=== PATIENT | female | born 1995 | race Caucasian/White ===

== ENCOUNTER 2020-05-12 03:57 | Emergency (ER) | payer OTHER, SELFPAY ==
[2020-05-12 04:57] VITALS: BP 123/66; PULSE 73; RESP 16; TEMP 35.7; O2SAT 95; BMI 24.2
--- NOTE | 2020-05-12 05:11 | US_ITS ---
EXAMINATION: US VENOUS WITH DOPPLER UPPER EXTREMITY, RIGHT CLINICAL INFORMATION: erythema, swelling COMPARISON: None TECHNIQUE: Ultrasound of the upper extremity is performed using compression sonography and color and pulse Doppler flow with assessment of augmentation of flow. There is also imaging and Doppler assessment of the jugular and subclavian veins. Spectral analysis with color-flow imaging is performed. FINDINGS: Respiratory variation, normal compression, and augmented flow are noted throughout the upper extremity including the axillary, brachial, cubital, and radial and ulnar veins. There is normal flow in the internal jugular and subclavian veins. There is no visible deep or superficial thrombophlebitis. If the patient's symptoms progress, a followup ultrasound in 5 -7 days might be of value to exclude proximal propagation from a nonvisualized distal arm vein. US/US venous duplex UE RT IMPRESSION: No DVT demonstrated in the right upper extremity
--- NOTE | 2020-05-12 05:11 | US_ITS ---
EXAMINATION: ULTRASOUND OF RIGHT UPPER EXTREMITY NONVASCULAR CLINICAL INFORMATION: erythema, swelling, ?abscess COMPARISON: None TECHNIQUE: Grayscale and color Doppler sonographic images were obtained through the area of erythema and swelling in the right forearm anteriorly. FINDINGS: There is marked edema in the subcutaneous fat at the abnormal area with associated soft tissue swelling and hyperemia. 30 shadowing in this region raises the possibility of subcutaneous gas. No discrete collections are identified. No nodules or masses. US/US extremity nonvascular IMPRESSION: Marked soft tissue swelling and hyperemia in the forearm at the area of abnormality with foci of dirty shadowing suggesting subcutaneous gas. The presence of gas is suggestive of underlying infection in the absence of recent instrumentation or injury, though no discrete abscess is seen.
--- NOTE | 2020-05-12 05:14 | ED_ITS ---
HPI - General Adult General Chief complaint: General Medical Stated complaint: Arm pain/no inj Time Seen by Provider: 05/12/20 05:09 Source: patient Mode of arrival: ambulatory History of Present Illness HPI narrative: This is a 24-year-old female who is an IVDA and wishes to have her right forearm evaluated and states that she is not having any fevers, chills, shortness of breath, chest pain/palpitations but states that she is concerned because her forearm is red and swollen. Related Data Previous Rx's Medication Instructions Recorded cephalexin [Keflex] 500 mg PO Q12H 7 Days #14 cap 05/12/20 doxycycline hyclate 100 mg PO BID 7 Days #14 cap 05/12/20 Allergies Allergy/AdvReac Type Severity Reaction Status Date / Time No Known Allergies Allergy Verified 05/12/20 05:11 Review of Systems Review of Systems: Pertinent positives and negatives as stated in HPI 10 point review of systems otherwise negative. PMFSH Past Medical History Source: nursing notes reviewed Medical History Substance abuse Social History Social History Advance Directives: No Advance Directives Information Provided: No Physical Exam Vital Signs: Vital Signs: Last Vital Signs Temp 96.3 F L 05/12/20 04:57 Pulse 73 05/12/20 04:57 Resp 16 05/12/20 04:57 BP 123/66 05/12/20 04:57 Pulse Ox 95 05/12/20 04:57 Body Mass Index 24.2 VITAL SIGNS: Reviewed. GENERAL: Well developed, well nourished, in no acute distress. NOSE: Nares patent bilateral OROPHARYNX: no oral lesions noted, posterior pharynx clear NECK: Supple, no adenopathy LUNGS: Normal breath sounds. SpO2<95> CARDIOVASCULAR: Regular rate and rhythm without noted murmurs ABDOMEN: Soft, non-tender, non-distended with bowel sounds. RIGHT UPPER EXTREMITY: Neurovascularly intact distal however there is a large area erythema and induration noted with multiple overlying track vergara from IVDA but no discrete collection appreciated NEUROLOGIC: Alert and oriented x 4. Course Course Course Narrative: This is a 24-year-old female with history and clinical presentation consistent with cellulitis of the right upper extremity secondary to IVDA although she is not having any systemic symptoms. Review of ultrasound studies is negative for DVT and there is evidence of infection tracking along longitudinally without any discrete abscess identified. On review of lab work there are no acute findings. Patient was informed of all results at the bedside and is aware that she will receive initial antibiotics here in the emergency room and then should proceed to the pharmacy for remaining course. Medical Decision Making Lab Data Result diagrams: 05/12/20 06:45 05/12/20 06:45 Labs: Lab Results 05/12/20 Range/Units 06:45 WBC 7.7 (4.8-10.8) X10*3/uL RBC 4.90 (4.20-5.50) X10*6/uL Hgb 13.7 (12.0-16.0) g/dl Hct 42.3 (37-47) % MCV 86.3 (80-98) fL MCH 28.0 (27.0-33.0) pg MCHC 32.4 (31.0-35.0) g/dl RDW 13.7 (11.0-16.0) % Plt Count 266 (160-400) X10*3/uL MPV 8.7 L (9.4-12.3) fL Immature Gran % (Auto) 0.3 (0.0-0.4) % Neut % (Auto) 49.5 (45-73) % Lymph % (Auto) 33.9 (20-40) % [place] % (Auto) 7.9 (2-11) % Eos % (Auto) 7.9 H (0-4) % Baso % (Auto) 0.5 (0-2) % Lymph # (Auto) 2.6 (1.2-4.9) X10*3/uL [place] # (Auto) 0.6 (0.1-1.2) X10*3/uL Eos # (Auto) 0.6 H (0.0-0.4) X10*3/uL Baso # (Auto) 0.0 (0.0-0.2) X10*3/uL Abs Immat Gran (auto) 0.02 (0.00-0.03) X10*3/uL Absolute Neuts (auto) 3.8 (2.0-8.3) X10*3/uL Absolute Nucleated RBC 0.000 (0.0-0.012) X10*3/uL Nucleated RBC % (auto) 0.0 (0.0-0.2) /100WBC Discharge Plan Discharge Clinical Impression: Cellulitis Qualifiers: Site of cellulitis: extremity Site of cellulitis of extremity: upper extremity Laterality: right Qualified Code(s): L03.113 - Cellulitis of right upper limb Patient Disposition: Home, Self-Care Instructions: Cellulitis (ED) Additional Instructions: Take antibiotics as prescribed. Please utilize the clean needle program. Prescriptions: New cephalexin [Keflex] 500 mg capsule 500 mg PO Q12H 7 Days Qty: 14 RF: 0 doxycycline hyclate 100 mg capsule 100 mg PO BID 7 Days Qty: 14 RF: 0 Referrals: Physician,Unknown [Primary Care Provider] - 2 days
[2020-05-12 06:50] LABS: MANUAL DIFF FLAG NO
[2020-05-12 07:03] LABS: Basophils Percent Auto 0.5 % (0-2); Eosinophils Absolute Auto 0.6 X10*3/uL (0.0-0.4); Eosinophils Percent Auto 7.9 % (0-4); Hematocrit 42.3 % (37-47); Hemoglobin 13.7 g/dl (12.0-16.0); Imm Gran Abs Auto 0.02 X10*3/uL (0.00-0.03); Imm Gran Pct Auto 0.3 % (0.0-0.4); Lymphocytes Absolute Auto 2.6 X10*3/uL (1.2-4.9); Lymphocytes Percent Auto 33.9 % (20-40); Mean Corpuscular HGB Conc 32.4 g/dl (31.0-35.0); Mean Corpuscular Volume 86.3 fL (80-98); Mean Platelet Volume 8.7 fL (9.4-12.3); Monocytes Absolute Auto 0.6 X10*3/uL (0.1-1.2); Monocytes Percent Auto 7.9 % (2-11); Neutrophils Absolute Auto 3.8 X10*3/uL (2.0-8.3); Neutrophils Percent Auto 49.5 % (45-73); Platelet Count 266 X10*3/uL (160-400); Red Cell Distribution Width 13.7 % (11.0-16.0); White Blood Count 7.7 X10*3/uL (4.8-10.8)
[2020-05-12 07:23] LABS: Alanine Aminotransferase 21 U/L (0-31); Albumin Level 4.1 g/dL (3.5-5.0); Alkaline Phosphatase 62 U/L (39-117); Anion Gap 16 (12-20); Aspartate Amino Transferase 22 U/L (5-31); Bilirubin Total 0.3 mg/dL (0.0-1.0); Blood Urea Nitrogen 16 mg/dL (9-16); Carbon Dioxide 23 mmol/L (22-29); Chloride 103 mmol/L (96-108); Creatinine Clr Calc Pharmacy 92.2; Estimated Glomerular Filt Rate > 60; Glucose Random 130 mg/dL (60-115); Potassium 4.1 mmol/l (3.3-5.1); Sodium 138 mmol/L (135-145); Total Protein 7.1 g/dL (6.5-8.0)
[2020-05-12 07:41] VITALS: BP 122/64; PULSE 68; RESP 16; TEMP 36.3; O2SAT 98
== END 2020-05-12 07:45 | disposition home or self-care (01) ==
PROVIDERS: Emergency Provider Student in an Organized Health Care Education/Training Program
DX: L03.113 Cellulitis of right upper limb (principal); F19.10 Other psychoactive substance abuse, uncomplicated; M79.631 Pain in right forearm
CPT/HCPCS: 36415; 76882; 80053; 85025; 93971; 99284

== ENCOUNTER 2021-03-31 20:45 | Inpatient (IN) | payer OTHER, SELFPAY ==
--- NOTE | ~2021-03-31 | IR_ITS ---
PROCEDURE: IR INSERTION OF CENTRAL VENOUS CATHETER CLINICAL INFORMATION: No IV access. Needs left chest tube insertion. COMPARISON: None TECHNIQUE: Following explaining ultrasound fluoroscopy-guided placement of right jugular temporary dialysis catheter procedure, benefits and risk, a written consent was obtained. Patient was placed supine on ultrasound stretcher and preliminary ultrasound imaging was obtained through the right neck. An optimal site was selected and marked in the neck. The marked site was cleaned and draped in usual sterile manner. 1% lidocaine was inserted puncture site. Under sterile ultrasound guidance a single wall needle was advanced and right jugular vein was punctured. After obtaining venous return a thin guidewire was advanced and needle withdrawn. A small incision was performed at puncture site. A 5 Sudanese dilator was advanced and the tract dilated. Subsequently a 6 Sudanese triple-lumen catheter was inserted over the guidewire into the SVC and the guidewire withdrawn. The catheter was anchored to the skin with 3 0 2 nylon sutures. A single image was obtained over the puncture site. Sterile dressing applied postprocedure. Patient to our procedure extremely well. No conscious sedation was utilized. All elements of maximal sterile barrier technique followed including use of cap, mask, sterile gown, sterile gloves, a sterile full body drape and hand hygiene. Also followed skin preparation with 2% chlorhexidine for cutaneous antisepsis, and sterile ultrasound preparation with sterile gel and probe cover when applicable. FINDINGS: On preliminary ultrasound imaging there is widely patent right jugular vein. Approximately 16 cm long 6 Sudanese triple-lumen catheter was inserted with its tip in the distal SVC ready for use. IR/IR us guide venous access IMPRESSION: Successful fluoroscopy-guided right jugular triple-lumen catheter insertion without immediate complications. Patient tolerated procedure extremely well. Fluoroscopy time 0.1 minute. Images: 1. Dose area product: 31 cGy/cm2
--- NOTE | ~2021-03-31 | CT_ITS ---
EXAMINATION: CT ANGIOGRAM OF THE CHEST WITH AND WITHOUT CONTRAST (CT PULMONARY ANGIOGRAM FOR PE) CLINICAL INFORMATION: Reason for Exam abnormal vq scan elevated ddimer COMPARISON: Previous chest x-ray 03/31/[address] scan 04/01/2021 TECHNIQUE: Prior to contrast administration, noncontrast localization images were obtained. Subsequently, multidetector volumetric imaging was performed from the thoracic inlet to below the diaphragms following the administration of 65 mL Omnipaque 350 intravenous contrast. No contrast reaction reported Sagittal, coronal, and MIP oblique sagittal reformatted images were obtained on the CT workstation, uploaded to PACS, and reviewed. This CT examination was performed using dose optimization techniques as appropriate, variously including the following: *Automated exposure control *Adjustment of mA and/or kV according to patient size (this includes techniques or standardized protocols for targeted exams where dose is matched to indication/reason for exam; i.e. extremities or head) *Use of iterative reconstruction technique Total exam dose-length product 142 mGy-cm FINDINGS: QUALITY OF STUDY/CONTRAST BOLUS: Satisfactory. PULMONARY ARTERIES: Evaluation of the pulmonary arteries is significantly limited due to respiratory motion artifact and extensive adjacent airspace disease and adenopathy. No large or central pulmonary embolism is seen. Evaluation of the smaller segmental and subsegmental pulmonary arteries is significantly limited. THORACIC AORTA: No aneurysm or dissection. LUNG: There is bilateral diffuse multilobar nodules and nodular opacities. Some appear cavitary. Largest cavitary nodules measure 2.2 x 3 cm in the anterior segment of the left upper lobe axial image 23 series 7 and 3 cm in the right lower lobe axial image 30 series 7. There is a larger areas of airspace disease suggestive of pneumonia is seen in the lower lobes, left greater than right. PLEURA: There are small bilateral pleural effusions, left greater than right. The left pleural effusion appears partially loculated in the left pleural fissure. MEDIASTINUM: Normal heart size. No pericardial effusion. There is diffuse mediastinal and hilar lymphadenopathy. Largest lymph node is a right paratracheal lymph node measuring 1.3 x 2.3 cm.. No evidence of septal bowing or right heart strain. CHEST WALL/AXILLA: There is right axillary lymphadenopathy. No chest wall mass or left axillary adenopathy is seen. OSSEOUS STRUCTURES: No acute or suspicious osseous abnormality. UPPER ABDOMEN: The liver and spleen appear prominent. No reflux of contrast into the hepatic veins to suggest elevated right heart pressures. CT/CT angio chest PE protocol IMPRESSION: Very limited exam due to artifact from respiratory motion and extensive airspace disease and adenopathy. No large or central pulmonary embolism is seen. Evaluation of the segmental and subsegmental pulmonary arteries is markedly limited. Multiple bilateral pulmonary nodules, some of which appear cavitary and areas of airspace disease or consolidation in the lower lobes suggestive of pneumonia, left greater than right. Bilateral pleural effusions left greater than right. The left pleural effusion is partially loculated. Enlarged hilar and mediastinal lymph nodes. Chest CT appearance is somewhat atypical for Covid infection. Septic emboli, granulomatous or fungal infection, vasculitis, other causes of cavitary pneumonia such as Staphylococcus and Klebsiella pneumonia and neoplasm should be also considered. Prominent liver and spleen. Right axillary lymphadenopathy. VTE: neg
--- NOTE | ~2021-03-31 | XR_ITS ---
EXAMINATION: XR CHEST CLINICAL INFORMATION: Bilateral pleural effusions COMPARISON: Previous chest x-rays most recent from yesterday TECHNIQUE: Frontal view of the chest was obtained. FINDINGS: The cardiac and mediastinal contours are stable. There is bilateral airspace disease with nodular opacities and some cavitary formation. This does not appear appreciably changed from yesterday's exam. There is a left chest tube at the lateral costophrenic angle. There is a small residual left pneumothorax laterally that appears unchanged. There is no significant residual left pleural effusion. There is a moderate right pleural effusion that appears unchanged. There is no right pneumothorax. Bony structures are unremarkable. XR/XR chest 1V IMPRESSION: No change in bilateral airspace opacities and cavity formation seen throughout the lungs. Stable position of left chest tube. Tiny left lateral pneumothorax unchanged. Moderate right pleural effusion unchanged.
--- NOTE | ~2021-03-31 | IR_ITS ---
PROCEDURE: IR INSERTION OF PICC CLINICAL INFORMATION: Need for long-term IV antibiotics. COMPARISON: None TECHNIQUE: Ultrasound and fluoroscopic-guided placement of right upper extremity PICC line. All elements of maximal sterile barrier technique followed including use of cap, mask, sterile gown, sterile gloves, a sterile full body drape and hand hygiene. Also followed skin preparation with 2% chlorhexidine for cutaneous antisepsis, and sterile ultrasound preparation with sterile gel and probe cover when applicable. FINDINGS: Informed consent was obtained from the patient prior to the procedure. During this process, the procedure and potential alternatives were explained, along with the intended outcome and benefits. The risks of the procedure, as well as the risk of not doing the procedure, were discussed. The patient was given the opportunity to ask questions regarding the procedure and appeared competent to make medical decisions. A signed consent form which documents this discussion was placed in the medical record. Using sterile technique and ultrasound guidance the right basilic vein was punctured above the elbow. Guidewire was directed into the right atrium. Following fascial dilatation a 5 Ma[place] 38 cm long PICC line was placed with its tip at cavoatrial junction. The catheter aspirated and flushed freely. Fluoroscopy time: 1.1 minutes. DAP: 95 cGy centimeters squared. IR/IR cvc insert peripheral IMPRESSION: Placement of right upper extremity PICC line as described.
--- NOTE | ~2021-03-31 | CT_ITS ---
EXAMINATION: CT CHEST WITHOUT CONTRAST CLINICAL INFORMATION: Bilateral pleural effusion status post tPA x3. COMPARISON: 06/07/2020 TECHNIQUE: Multidetector volumetric CT imaging of the chest was done. Axial MIP volume rendering provided. Sagittal and coronal reformatted images were obtained. This CT examination was performed using dose optimization techniques as appropriate, variously including the following: *Automated exposure control *Adjustment of mA and/or kV according to patient size (this includes techniques or standardized protocols for targeted exams where dose is matched to indication/reason for exam; i.e. extremities or head) *Use of iterative reconstruction technique DLP: 246 mGy-cm FINDINGS: LUNGS: The central airways are patent. Increased prominence of a cavitating right upper lobe nodule measuring 2.8 cm on series 5 image 48. Numerous additional cavitating nodules are seen throughout the lungs. More confluent consolidation noted in both lower lobes with multiple areas of gas internally. There is moderate sized right pleural effusion remaining, with loculated fluid along the right mid hemithorax peripherally. There is a left basilar pigtail catheter in place with significant improvement of the prior left pleural effusion. Small amount of pleural fluid left with small pneumothorax noted. MEDIASTINUM: Normal heart size. Prominent mediastinal lymph nodes remain. No pericardial effusion. AXILLA: No lymphadenopathy. UPPER ABDOMEN: Unremarkable. OSSEOUS STRUCTURES: Unremarkable. CT/CT chest wo con IMPRESSION: 1. Significant improvement of the prior left pleural effusion. Tiny left-sided hydropneumothorax remains. Pigtail catheter in place. 2. Similar appearance of the right-sided pleural effusion with loculation along the peripheral mid hemithorax. 3. Multifocal nodular opacities throughout the lungs with cavitation, showing some increase in size from prior. This is most concerning for septic emboli. Increased bilateral lower lung consolidation which could be in part atelectasis. Fleischner guidelines were followed.
--- NOTE | ~2021-03-31 | CT_ITS ---
PROCEDURE: CT GUIDED INSERTION, PLEURAL TUNNEL CATHETER CLINICAL INFORMATION: Right-sided chronic pleural effusion COMPARISON: None TECHNIQUE: Following explaining CT fluoroscopy-guided right chest incision procedure, benefits and risk, a written consent was obtained. Patient was placed in some a left decubitus view and preliminary CT imaging was obtained. Markers were placed along the right lateral chest and repeat CT imaging was obtained. An optimal marker was selected and marked on the skin. The marked site was cleaned and draped in usual sterile manner with 2% chlorhexidine solution. 1% lidocaine was injected at the puncture site. Through a small skin incision a 5 Icelandic short Yueh catheter was advanced into the right posterior pleural effusion. After observing fluid return, stylet was withdrawn and 0.035 J-wire was introduced into the pleural space. The 5 Icelandic Yueh catheter was removed. A 8.6 Icelandic APD catheter was then introduced over the guidewire with the stiffener and inserted into the right posterior pleural space. The stiffener was loosened and the catheter advanced over the guidewire. Eventually the the stiffener and the guidewire removed and repeat CT imaging was performed. After confirming chest catheter in the pleural space. Pedicular was performed by pulling to thrive. The catheter was then anchored to this skin with 3 0 nonabsorbable nylon sutures. The catheter was anchored to the connecting cannula with a single valve mechanism. The other end of catheter was connected to water seal device which was eventually connected to the wall suction 20 cm of water. Sterile dressing applied postprocedure. Patient tolerated procedure extremely well. Conscious sedation was administered during the exam. Repeat imaging was obtained through the chest, confirmation of the catheter. This CT examination was performed using dose optimization techniques as appropriate, variously including the following: *Automated exposure control *Adjustment of mA and/or kV according to patient size (this includes techniques or standardized protocols for targeted exams where dose is matched to indication/reason for exam; i.e. extremities or head) *Use of iterative reconstruction technique DLP: 140 mGy-cm FINDINGS: On preliminary ultrasound imaging there is small to moderate amount of loculated right pleural effusion. A 8.6 Icelandic APD catheter was left in the right pleural space. The catheter was connected to -20 cm wall suction via water seal device. Approximately 200 mL of fluid was drained on the table. 60 mL of fluid was sent to lab as per referring physician's orders. CT/CT chest tube placement IMPRESSION: Successful CT guided insertion of right chest tube connected to wall suction via waterseal device. There were no immediate complications. DLP: 140 mGy/cm.
--- NOTE | ~2021-03-31 | CT_ITS ---
EXAMINATION: CT CHEST WITHOUT CONTRAST CLINICAL INFORMATION: Left pleural effusion COMPARISON: CT 04/03/2021 TECHNIQUE: Multidetector volumetric CT imaging of the chest was done. Axial MIP volume rendering provided. Sagittal and coronal reformatted images were obtained. This CT examination was performed using dose optimization techniques as appropriate, variously including the following: *Automated exposure control *Adjustment of mA and/or kV according to patient size (this includes techniques or standardized protocols for targeted exams where dose is matched to indication/reason for exam; i.e. extremities or head) *Use of iterative reconstruction technique DLP: 165 mGy-cm FINDINGS: SWITCH ADJUSTER: There is left lung volume loss and left greater than right pleural effusions. LUNGS: Innumerable nodular opacities and areas of nodular consolidation are seen, many of which have cavitation. These of increased in number since the prior study 04/06/2021. The previously seen abnormalities are roughly similar in size. There is worsened more confluent consolidation at the left lung base. Slight interval worsening of consolidation in the superior segment of the right lower lobe that accounts for the right midlung opacity seen on prior chest CT. MEDIASTINUM: Normal heart size. Anterior superior mediastinal, prevascular, subcarinal, and paratracheal lymph nodes are presumably reactive. PLEURA: Loculated left pleural effusion seen along the left lateral chest wall and extending to the left lateral and posterior lung base. This is increased in volume compared to the prior chest CT 04/03/2021. Small pleural effusion at the right lung bases also increased from the prior chest CT. AXILLA: Prominent right axillary lymph nodes may be reactive. UPPER ABDOMEN: The liver and spleen are enlarged. No adrenal mass. OSSEOUS STRUCTURES: No acute or suspicious osseous abnormality. CT/CT chest wo con IMPRESSION: Worsened bilateral pleural effusions, left greater than right. The left pleural fluid is presumably loculated as it is seen tracking along the left lateral chest wall in a nondependent position. Innumerable nodular opacities and areas of nodular consolidation are seen, many of which are cavitary. These are increased in number from the prior study 04/03/2021. The previously seen abnormalities a roughly similar in size. The overall appearance, particularly with the cavitation, is more suggestive of septic emboli or other multifocal pneumonia, rather than viral COVID pneumonitis. In addition, there is worsening confluent consolidation at the left lung base and in the superior segment of the right lower lobe consistent with worsening focal consolidative pneumonia. Fleischner guidelines were followed.
--- NOTE | ~2021-03-31 | XR_ITS ---
EXAMINATION: XR CHEST CLINICAL INFORMATION: Shortness of breath COMPARISON: None TECHNIQUE: 2 views of the chest were obtained. FINDINGS: Cardiac silhouette is normal in size. Mildly hypoinflated lungs. Extensive patchy bilateral airspace disease. Blunting of left costophrenic angle likely represents a tiny amount of pleural fluid with superimposed airspace disease. No pneumothorax. No acute osseous abnormality. XR/XR chest 2V IMPRESSION: Patchy bilateral airspace disease, most consistent with Covid pneumonia.
--- NOTE | ~2021-03-31 | XR_ITS ---
EXAMINATION: XR CHEST CLINICAL INFORMATION: Right pneumothorax. Pigtail chest tube in place. COMPARISON: Chest radiograph dated from 04/20/[address] chest dated from 04/20/2021. TECHNIQUE: AP view of the chest was obtained. FINDINGS: Right-sided IJ CVC terminates at the level of the right atrium, similar to prior. A right-sided pigtail catheter appears slightly more inferiorly located when compared to the most recent prior within the right lung base. There is redemonstration of a right sided hydropneumothorax with decreased amount of air but overall similar amount of fluid. There is also redemonstration of a small left-sided pleural effusion. Multifocal airspace opacities many of which are cavitated are overall similar to prior which are better assessed on a recent CT of the chest. Unchanged appearance of the cardiomediastinal silhouette. No acute osseous abnormalities. XR/XR chest 1V IMPRESSION: Right hydropneumothorax with decreased amount of air and stable amount of fluid. Unchanged small left pleural effusion. Multifocal airspace opacities some of which are cavitated are overall similar.
--- NOTE | ~2021-03-31 | XR_ITS ---
EXAMINATION: XR CHEST CLINICAL INFORMATION: Shortness of breath COMPARISON: 03/31/2021 TECHNIQUE: Frontal view of the chest was obtained. FINDINGS: Bilateral pulmonary opacities have increased from the 03/31/2021 comparison. Blunting of the left costophrenic angle suggests a layering, small to moderate effusion which appears increased from the comparison. No large right effusion identified. No pneumothorax. XR/XR chest 1V IMPRESSION: Worsening bilateral pulmonary opacities Small to moderate left effusion is minimally increased in size.
--- NOTE | ~2021-03-31 | XR_ITS ---
EXAMINATION: XR CHEST CLINICAL INFORMATION: Right hydropneumothorax COMPARISON: 04/18/2021 TECHNIQUE: Frontal view of the chest was obtained. FINDINGS: Pigtail catheter overlies the right base. Right internal jugular central venous catheter terminates over the right atrium, unchanged. Lung volumes are low. Small right hydropneumothorax is unchanged from prior. Patchy bilateral airspace opacities are unchanged. The cardiomediastinal silhouette is within normal limits. XR/XR chest 1V IMPRESSION: No significant change in small right hydropneumothorax. Patchy bilateral airspace opacities are unchanged.
--- NOTE | ~2021-03-31 | XR_ITS ---
EXAMINATION: XR CHEST CLINICAL INFORMATION: Follow-up pneumonia. COMPARISON: 04/21/2021 chest radiograph. TECHNIQUE: 2 views of the chest were obtained. FINDINGS: Support devices: Right-sided central venous catheter with tip overlying the right atrium. Interval removal of right chest tube. Bilateral patchy infiltrates are seen with similar distribution, but mild interval increase in the right midlung. There is a persistent small right pleural effusion. No overt pneumothorax. The heart and mediastinal structures are unremarkable. XR/XR chest 2V IMPRESSION: Bilateral patchy infiltrates demonstrating similar distribution with mild interval increase in the right midlung. Persistent small right pleural effusion. No overt pneumothorax.
--- NOTE | ~2021-03-31 | XR_ITS ---
EXAMINATION: XR CHEST CLINICAL INFORMATION: Bilateral pleural effusion. Status post left pigtail chest tube COMPARISON: 04/11/2021 TECHNIQUE: Frontal view of the chest was obtained. FINDINGS: Left-sided chest tube in place at the base. Lung volumes are low. Moderate right pleural effusion remains. Small left hydropneumothorax remains. Patchy airspace opacities of both lungs. The cardiomediastinal silhouette is unchanged. XR/XR chest 1V IMPRESSION: No significant change from prior. Small left hydropneumothorax. Moderate right pleural effusion. Bilateral airspace opacities.
--- NOTE | ~2021-03-31 | IR_ITS ---
PROCEDURE: IR INSERTION OF CENTRAL VENOUS CATHETER CLINICAL INFORMATION: No IV access. Needs left chest tube insertion. COMPARISON: None TECHNIQUE: Following explaining ultrasound fluoroscopy-guided placement of right jugular temporary dialysis catheter procedure, benefits and risk, a written consent was obtained. Patient was placed supine on ultrasound stretcher and preliminary ultrasound imaging was obtained through the right neck. An optimal site was selected and marked in the neck. The marked site was cleaned and draped in usual sterile manner. 1% lidocaine was inserted puncture site. Under sterile ultrasound guidance a single wall needle was advanced and right jugular vein was punctured. After obtaining venous return a thin guidewire was advanced and needle withdrawn. A small incision was performed at puncture site. A 5 Emirati dilator was advanced and the tract dilated. Subsequently a 6 Emirati triple-lumen catheter was inserted over the guidewire into the SVC and the guidewire withdrawn. The catheter was anchored to the skin with 3 0 2 nylon sutures. A single image was obtained over the puncture site. Sterile dressing applied postprocedure. Patient to our procedure extremely well. No conscious sedation was utilized. All elements of maximal sterile barrier technique followed including use of cap, mask, sterile gown, sterile gloves, a sterile full body drape and hand hygiene. Also followed skin preparation with 2% chlorhexidine for cutaneous antisepsis, and sterile ultrasound preparation with sterile gel and probe cover when applicable. FINDINGS: On preliminary ultrasound imaging there is widely patent right jugular vein. Approximately 16 cm long 6 Emirati triple-lumen catheter was inserted with its tip in the distal SVC ready for use. IR/IR cvc insert non tunnel IMPRESSION: Successful fluoroscopy-guided right jugular triple-lumen catheter insertion without immediate complications. Patient tolerated procedure extremely well. Fluoroscopy time 0.1 minute. Images: 1. Dose area product: 31 cGy/cm2
--- NOTE | ~2021-03-31 | XR_ITS ---
EXAMINATION: XR CHEST CLINICAL INFORMATION: Follow up chest tube and right effusion. COMPARISON: CT scan of 04/16/2021 and x-ray of 04/15/2021. TECHNIQUE: AP portable view of the chest was obtained. FINDINGS: There is a small-bore right chest tube seen about the lung base. There is a right pneumothorax present but with the appearance of trapped lung similar in size and configuration to the pleural fluid that was present previously on the partially loculated right effusion. There are again noted to see bilateral regions of interstitial airspace disease without significant change. Left-sided chest tube has been removed. Heart normal size. No evidence of pulmonary edema. Right internal jugular central venous catheter tip is seen in the mid to lower right atrium. XR/XR chest 1V IMPRESSION: Small-bore right chest tube in place with pneumothorax with the appearance of trapped lung. There remains some right base density within the pleural space suggestive of some residual fluid. No significant change in appearance of diffuse bilateral interstitial and airspace disease. Right internal jugular central venous catheter tip within the mid to inferior right atrium.
--- NOTE | ~2021-03-31 | XR_ITS ---
EXAMINATION: XR CHEST CLINICAL INFORMATION: Bilateral pleural effusions COMPARISON: 04/14/2021 TECHNIQUE: Frontal view of the chest was obtained. FINDINGS: Lung volumes are low. Small bilateral pleural effusions are similar to prior. Bilateral patchy airspace opacities are without significant change. Previous tiny left lateral pneumothorax is not well seen on this study.. The cardiomediastinal silhouette is within normal limits. Left-sided chest tube remains in place at the costophrenic angle region. XR/XR chest 1V IMPRESSION: No significant change of small bilateral pleural effusions with patchy bilateral airspace opacities.
--- NOTE | ~2021-03-31 | CT_ITS ---
PROCEDURE: CT GUIDED INSERTION, PLEURAL CATHETER CLINICAL INFORMATION: Bilateral pleural effusions, slightly greater on the left, and appear loculated. COMPARISON: None TECHNIQUE: Following explaining the CT-guided insertion of the left chest tube catheter procedure, benefits and risks, a written consent was obtained. The patient was placed supine in semi right decubitus view and preliminary CT imaging was obtained. An optimal site was selected with lead markers placed on the skin. An optimal lead marker was selected and marked on the skin. The area selected was cleaned and draped in the usual sterile manner. 1% local Xylocaine was injected at the puncture site. Through a small skin incision, a 5-Macanese Yueh catheter was advanced into the left pleural space. After observing fluid return, the stylet was withdrawn and a 0.035 J-wire was inserted into the pleural space and the Yueh catheter was removed. A 6.3-Macanese APD catheter with a stiffener was inserted over the guidewire into the left pleural space. The stiffener and the guidewire were removed and repeat imaging was performed to confirm position of the catheter in the pleural space. The catheter tip was connected to waterseal drainage catheter via a three-way stopcock. The catheter was then anchored to the skin with nonabsorbable 3-0 nylon sutures x2. Sterile dressing applied post procedure. The patient tolerated the procedure extremely well. Conscious sedation was administered during the exam and the patient was monitored by the IR nurse and the radiologist. This CT examination was performed using dose optimization techniques as appropriate, variously including the following: *Automated exposure control *Adjustment of mA and/or kV according to patient size (this includes techniques or standardized protocols for targeted exams where dose is matched to indication/reason for exam; i.e. extremities or head) *Use of iterative reconstruction technique DLP: 225 mGy-cm FINDINGS: Loculated bilateral pleural effusions seen, left greater than right. Fluoroscopy-guided insertion of a left chest tube catheter with its tip along the left lateral chest wall. Approximately 6 mL of blood-tinged fluid was collected and sent to the lab as per the referring physician's orders. CT/CT chest tube placement IMPRESSION: Successful CT fluoroscopy-guided insertion of a 6.3-Macanese left chest tube catheter with its tip along the left lateral chest wall connected to waterseal drainage and subsequently to be connected to -20 cm of wall suction. There were no immediate complications. The patient was sent to the floor in satisfactory condition same as received previously.
--- NOTE | ~2021-03-31 | XR_ITS ---
EXAMINATION: XR CHEST CLINICAL INFORMATION: Left chest tube insertion. COMPARISON: CT scans of 04/08/2021 and 04/06/2021 as well as plain film chest study of 04/06/2021. TECHNIQUE: AP portable view of the chest was obtained. FINDINGS: Since the previous study, a left-sided chest tube has been placed. There is no change in appearance of what appears to be a loculated pleural effusion extending along the chest wall. There appears to be a small amount of air present nondependently within the collection, likely iatrogenic from chest tube placement or related to trapped lung. There remains loculated right-sided pleural effusion. There are bilateral regions of disease with nodularity, with some improvement of a region of disease that was seen within the right upper lobe on chest x-ray of but with what appears to be increase in size of the partially loculated right pleural effusion. Heart normal size. No evidence of pulmonary edema. XR/XR chest 1V IMPRESSION: Left-sided chest tube in place with no significant change in left loculated pleural effusion. Small amount of air seen within the left pleural space, likely either iatrogenic from a small amount of air introduced with chest tube or related to trapped lung with some fluid being removed. Increase in size of partially loculated right pleural effusion. Diffuse bilateral regions of interstitial and airspace disease.
--- NOTE | ~2021-03-31 | NM_ITS ---
EXAMINATION: PULMONARY PERFUSION STUDY CLINICAL INFORMATION: Positive d-dimer. Hypoxia, pneumonia, MELITON, pleuritic chest pain, shortness of breath. COMPARISON: No previous lung scan is available for comparison. Radiographs of the chest dated 03/31/2021 are available for comparison. TECHNIQUE: Following the intravenous administration of 4.1 mCi Tc-99m MAA an 8-view perfusion study was performed using a dual detector gamma scintillation camera. No ventilation images were obtained. FINDINGS: Perfusion images: Segmental and subsegmental perfusion defects are present bilaterally. Severe perfusion abnormalities are present involving all of the basilar segments of the left lower lobe and a portion of the superior segment of the left lower lobe. A segmental or large subsegmental perfusion defect is present in the inferior lingular segment. There is a segmental or large subsegmental perfusion defect in the medial segment of the right middle lobe an additional large subsegmental perfusion defect is present in the lateral aspect of the superior segment of the right lower lobe. There are small additional subsegmental defects present in the lung apices bilaterally, more prominently on the right. Radiographs of the chest dated 03/31/2021 show bilateral airspace opacities most severe in the lower lobes and right middle lobe. NM/NM pul perfusion IMPRESSION: Intermediate probability of pulmonary embolism. These abnormalities may be due to pulmonary emboli or severe pneumonitis, or a combination of the two. If not contraindicated, CTA pulmonary embolism protocol would be helpful in differentiating these.
--- NOTE | ~2021-03-31 | XR_ITS ---
EXAMINATION: XR CHEST CLINICAL INFORMATION: Follow-up pleural effusion COMPARISON: 04/04/2021 TECHNIQUE: 2 views of the chest were obtained. FINDINGS: Loculated pleural effusion along the left lateral chest wall is increased in size. Worsened small to moderate right pleural effusion blunting the right costophrenic angle. New hazy opacity in the right midlung could reflect fluid trapped in the fissure or new more confluent consolidation superimposed on extensive bilateral airspace opacities. XR/XR chest 2V IMPRESSION: Worsened bilateral pleural effusions, loculated on the left. Persistent bilateral airspace disease and nodular opacities consistent with multifocal pneumonia. New right midlung opacity may represent fluid in the right major fissure or developing consolidative pneumonia.
--- NOTE | ~2021-03-31 | XR_ITS ---
EXAMINATION: XR CHEST CLINICAL INFORMATION: Right and left pleural effusions COMPARISON: 04/10/2021 TECHNIQUE: Frontal view of the chest was obtained. FINDINGS: The lungs are well expanded. Moderate right pleural effusion. Small left pleural effusion. Pigtail catheter in place. These are unchanged from prior. Patchy airspace opacities throughout both lungs. No pneumothorax. The cardiomediastinal silhouette is within normal limits. XR/XR chest 1V IMPRESSION: No significant change from prior. Small left and moderate right pleural effusions. Patchy bilateral opacities.
--- NOTE | ~2021-03-31 | US_ITS ---
EXAMINATION: US ABDOMEN LIMITED CLINICAL INFORMATION: Transaminitis. COMPARISON: None TECHNIQUE: Real-time imaging of the right upper quadrant abdominal viscera. FINDINGS: PANCREAS: Not well visualized due to bowel gas LIVER: The liver is enlarged. The right lobe measures 22 cm in length. The liver contour and echogenicity is normal. No focal hepatic lesion. There is no intrahepatic biliary duct dilatation seen. GALLBLADDER: Gallbladder is normal in size. No gallstones are seen. The gallbladder wall appears slightly thickened and edematous 0.6 cm. COMMON BILE DUCT: Normal in caliber measuring 0.3 cm in diameter. RIGHT KIDNEY: Normal. No hydronephrosis. No renal calculi or focal parenchymal lesions. The kidney measures 11.8 cm in maximum dimension. FREE FLUID: No ascites. There is a small right pleural effusion. US/US abdomen limited IMPRESSION: Enlarged liver. Thickened edematous gallbladder wall. No gallstones are seen. Differential would include gallbladder wall changes related to liver disease, cholangitis, low albumin, CHF, acalculous cholecystitis and pancreatitis. If there is clinical concern of acalculous cholecystitis, HIDA scan would be recommended. Limited visualization of the pancreas. Small right pleural effusion.
--- NOTE | ~2021-03-31 | US_ITS ---
EXAMINATION: US RETROPERITONEAL LIMITED (RENAL ONLY) CLINICAL INFORMATION: MELITON. COMPARISON: Abdominal ultrasound dated 04/01/2021. TECHNIQUE: Multiple 2-D grayscale and color Doppler ultrasound images of the kidneys were obtained. FINDINGS: RIGHT KIDNEY: 12.8 x 6.0 x 6.2 cm (SAG x AP x TRV). Diffuse increased cortical echotexture. No hydronephrosis or nephrolithiasis. Color Doppler showed no abnormal vascular flow. LEFT KIDNEY: 12.4 x 5.3 x 6.5 cm (SAG x AP x TRV). Diffuse increased cortical echotexture. No hydronephrosis or nephrolithiasis. Color Doppler showed no abnormal vascular flow. US/US renal BI IMPRESSION: Increased renal cortical echotexture bilaterally is nonspecific, but is consistent with medical renal disease. No acute abnormality.
--- NOTE | ~2021-03-31 | XR_ITS ---
EXAMINATION: XR CHEST CLINICAL INFORMATION: Right-sided hydropneumothorax. COMPARISON: 04/19/2021 chest radiograph. TECHNIQUE: Frontal view of the chest was obtained. FINDINGS: Support devices: A right basilar pigtail chest tube is again seen without significant change. Right-sided internal jugular catheter with tip terminating overlying the right atrium. There is a persistent small right hydropneumothorax with minimal interval decrease of the air component. Persistent bilateral patchy infiltrates are seen with similar distribution. The heart and mediastinal structures are unremarkable. XR/XR chest 1V IMPRESSION: 1. Persistent small right hydropneumothorax with minimal interval decrease in air component. No significant change in right chest tube. 2. Bilateral patchy infiltrates without significant change.
--- NOTE | ~2021-03-31 | XR_ITS ---
EXAMINATION: XR CHEST CLINICAL INFORMATION: Right-sided pleural effusion with pigtail catheter COMPARISON: April 17, [address] scan of April 16, 2021 TECHNIQUE: AP portable view of the chest was obtained. FINDINGS: Pigtail catheter again seen at the right lung base. Pneumothorax is unchanged in appearance with what appears to be thickened pleura and probable trapped lung. There is again noted to be bilateral regions of disease without significant change. Heart normal size. No evidence of pulmonary edema. Right internal jugular central venous catheter seen within the lower right atrium. XR/XR chest 1V IMPRESSION: No significant change compared to prior day's study.
--- NOTE | ~2021-03-31 | XR_ITS ---
EXAMINATION: XR CHEST CLINICAL INFORMATION: Follow-up bilateral pleural effusions COMPARISON: Previous chest x-ray most recent from yesterday TECHNIQUE: Frontal view of the chest was obtained. FINDINGS: The cardiac and mediastinal contours are stable. There is bilateral airspace disease and nodular opacities that appear stable. New left pigtail chest tube at the bilateral costophrenic angle. Interval decrease in left pleural effusion. Small left pneumothorax. This measures less than 1 cm at the lateral costophrenic angle. Moderate size right pleural effusion not appreciably changed. Bony structures are unremarkable. XR/XR chest 1V IMPRESSION: Interval decrease in left pleural effusion. New small left pneumothorax. Bilateral airspace disease and nodular opacities unchanged. Moderate size right pleural effusion. Findings will be communicated by the [place] work flow clinical social worker Haven Askew.
--- NOTE | ~2021-03-31 | CT_ITS ---
EXAMINATION: CT CHEST WITHOUT CONTRAST CLINICAL INFORMATION: Right hydropneumothorax. COMPARISON: CT chest dated from 04/12/2021 and 04/16/2021. TECHNIQUE: Multidetector volumetric CT imaging of the chest was done. Axial MIP volume rendering provided. Sagittal and coronal reformatted images were obtained. This CT examination was performed using dose optimization techniques as appropriate, variously including the following: *Automated exposure control *Adjustment of mA and/or kV according to patient size (this includes techniques or standardized protocols for targeted exams where dose is matched to indication/reason for exam; i.e. extremities or head) *Use of iterative reconstruction technique DLP: 158 mGy-cm FINDINGS: [employer]: Right lower lobe pigtail catheter in similar positioning to prior. Right IJ CVC with tip overlying the right atrium, also unchanged. LUNGS: There is decreased amount of right-sided pleural fluid but increased amount of right-sided pleural air when compared to CTs from 04/16/2021 and 04/12/2021. A small volume of left sided pleural fluid remains unchanged without definite associated pleural air. There is redemonstration of multifocal airspace opacities many of which demonstrate cavitation and internal air fluid levels. Overall, there has been a mixed response with some of these lesions slightly decreased in size, a few stable and others increased/new. For instance, an approximately 3.4 cm airspace opacity in the right upper lobe (3:16) seems new since 04/12/2021 and increased since 04/16/2021. An approximately 4.6 cm cavitated opacity in the right lower lobe appears decreased from approximately 5.1 cm in prior, however there is increased internal amount of air. Airspace opacities in the left lower lobe are slightly improved. MEDIASTINUM: Normal heart size. Trace amount of pericardial fluid. Mediastinal and hilar lymphadenopathy is not entirely well delineated in the absence of intravenous contrast but overall stable. Normal appearance of the thyroid gland. AXILLA: No lymphadenopathy. UPPER ABDOMEN: Unremarkable. OSSEOUS STRUCTURES: Unremarkable. CT/CT chest wo con IMPRESSION: Complex study. Increased amount of right-sided pleural air but decreased amount of right-sided pleural fluid. Unchanged small left pleural effusion. However, previously visualized associated left pleural air has resolved. Redemonstration of multifocal cavitated airspace opacities, some of which stable, others decreased and a few increased in size. Recommend continued monitoring.
[2021-03-31 20:53] VITALS: BP 100/45; PULSE 114; RESP 40; TEMP 37.3; O2SAT 87; BMI 24.2
--- NOTE | 2021-03-31 20:59 | ECG_ITS ---
Test Reason : chest pain Blood Pressure : / mmHG Vent. Rate : 108 BPM Atrial Rate : 108 BPM P-R Int : 130 ms QRS Dur : 082 ms QT Int : 332 ms P-R-T Axes : 038 060 031 degrees QTc Int : 444 ms Sinus tachycardia Otherwise normal ECG No previous ECGs available Referred By: Franca Vyas Electronically Signed By:Noel Blackwood
--- NOTE | 2021-03-31 21:01 | ED_ITS ---
HPI - General Adult General Chief complaint: Upper Respiratory Symptoms Stated complaint: cp Time Seen by Provider: 03/31/21 20:59 Source: patient and EMS Mode of arrival: EMS Limitations: no limitations History of Present Illness HPI narrative: 25-year-old female with a history of polysubstance abuse here with multiple complaints. Patient tells me for the last 2 weeks she has had cough, body aches, weakness, subjective fevers and chills, chest pain which is worsened with coughing and deep breathing. She also is complaining of some left buttocks pain with radiation down the lateral left thigh with no back pain or injury or trauma. She denies any saddle anesthesia, bowel or bladder incontinence. She tells me that she injects IV heroin and cocaine daily. Her last use was just prior to arrival. She also notes a wound to her right lower extremity. Patient tells me that she has had this wound for several months and does not feel like it is worsened. Related Data Previous Rx's Medication Instructions Recorded cephalexin 500 mg capsule (Keflex) 500 mg PO Q12H 7 Days #14 cap 05/12/20 doxycycline hyclate 100 mg capsule 100 mg PO BID 7 Days #14 cap 05/12/20 Allergies Allergy/AdvReac Type Severity Reaction Status Date / Time No Known Allergies Allergy Verified 05/12/20 05:11 Review of Systems Review of Systems: Yes all other systems are reviewed and are negative Constitutional: Constitutional: Reports no additional constitutional complaints, Reports body ache(s), Reports chills, Reports fever(s), Denies headache(s) and Reports weakness Eyes: Eyes: Reports no additional eye complaints and Denies change in vision ENT: Reports system reviewed and no additional complaints, except as documented, Denies dizziness, Denies headache(s), Denies nasal congestion, Denies nasal discharge and Denies neck pain Cardiovascular: Cardiovascular: Reports no additional cardiovascular complaints, Reports chest pain, Denies leg edema and Reports dyspnea Respiratory: Respiratory: Reports no additional respiratory complaints, Reports cough and Reports dyspnea Gastrointestinal: Gastrointestinal: Reports no additional gastrointestinal complaints, Denies abdominal pain, Denies diarrhea, Denies nausea and Denies vomiting Genitourinary: Genitourinary: Reports no additional female genitourinary complaints and Denies urinary incontinence Musculoskeletal: Musculoskeletal: Reports no additional musculoskeletal complaints, Denies back pain, Denies arthralgias, Denies joint swelling, Denies neck pain, Denies numbness and Denies tingling Integumentary/Breasts: Skin/Breast: Reports system reviewed and no additional complaints, except as docu and Denies rash Neurologic: Reports system reviewed and no additional complaints, except as documented, Denies Abnormal speech present, Denies dizziness, Denies headache(s), Denies numbness, Denies tingling and Reports weakness PMFSH Past Medical History Attestation statement: The following information was validated with the patient. Source: old records reviewed and nursing notes reviewed Medical History Substance abuse Social History Social History Advance Directives: No Patient : No Physical Exam Vital Signs: Vital Signs: Last Vital Signs Temp 98.7 F 03/31/21 22:50 Pulse 112 H 04/01/21 01:00 Resp 17 04/01/21 01:00 BP 111/49 L 04/01/21 01:00 Pulse Ox 94 04/01/21 01:00 BMI result Body Mass Index 24.2 Const: Other: Disheveled General: alert Orientation/consciousness: patient oriented x3 Limitations: no limitations HENMT: Other: tacky mucous membranes Head: Yes normal to inspection Ears: hearing grossly normal bilaterally General nose exam: Normal external nose present Face and sinus: Yes normal facial exam Mouth: Normal oral and palatal mucosa present Throat: Yes posterior oropharynx normal Eyes: General: appearance normal, both eyes and all related structures Pupils: Equal, round and reactive pupils present Neck: Neck: Yes normal visual inspection Chest: Chest palpation & inspection: normal inspection of the chest Resp: Other: coarse breath sounds throughout tachypnea with a rate of 30 Cardio: Rate: regular rate Rhythm: regular rhythm Peripheral pulses: Peripheral pulses 2+ throughout GI: Inspection: Yes normal to inspection Palpation (GI): Soft to palpation and nontender Auscultation: normal bowel sounds Back/Spine/Pelvis: Thoracic/Lumbar Spine: thoracic and lumbar spine normal to inspection Skin: General skin exam: no rashes or lesions noted Neuro: Other: diffusely weak General: patient oriented x3, moves all extremities, normal sensation to monofilament and Unable to assess gait Cranial nerves: Yes Equal, round and reactive pupils present Cognition (Neuro): normal cognition Speech: No Abnormal speech present Gait exam (Neuro): Unable to assess gait Extrem: Other: General: Yes normal to inspection, Yes no pedal edema and Yes no calf tenderness Course Course Course Narrative: [id number] female with a history of polysubstance abuse here with complaints of flu-like symptoms for about 2 weeks with some pleuritic chest pain. Patient also complaining of some left buttocks pain with radiation down the leg with no back pain, incontinence or saddle anesthesia. No reports of injury or trauma. Also complaining of a chronic wound on the right upper extremity. On arrival the patient is tachypneic with a blood pressure of 91/45. will need labs including blood cultures and lactic acid, chest x-ray, COVID screen, UA. at this time infection is suspected. Antibiotics ordered. Normal saline bolus 30 cc/kilos ordered -delay in care d/t patient have poor IV access. This was placed by US by nursing at the bedside. 2299- Patient has a chest x-ray that is consistent with multifocal pneumonia. Additional antibiotics ordered. The patient's D-dimer is 3263. consider PE with elevated D-dimer, tachypnea and pleuritic chest pain. Unfortunately the patient is unable to have a CTA of the chest due to acute kidney injury. She can have a V/Q scan during her admission. Therefore she will be treated prophylactically with subcutaneous Lovenox 1 mg/kg. Additional labs show leukocytosis, thrombocytopenia, anemia, MELITON, hyponatremia. Fluids infusing. Repeat blood pressure improved. Continues to have some tachypnea but is maintaining her saturation on 3 L of oxygen. Will give low-dose narcotic to assist with work of breathing. Patient will require admission. 0000- the case was discussed with Dr. Browne accepted the patient. He will follow the patient's D-dimer with a V/Q scan in the morning. Medical Decision Making Medical Records Medical records reviewed: Yes I reviewed the patient's medical records. Lab Data Lab results reviewed: Yes I reviewed the patient's lab results. Result diagrams: 03/31/21 21:53 04/01/21 00:41 Labs: Lab Results 03/31/21 03/31/21 03/31/21 Range/Units 21:30 21:53 21:53 WBC 11.8 H (4.8-10.8) X10*3/uL RBC 3.65 L (4.20-5.50) X10*6/uL Hgb 9.1 L (12.0-16.0) g/dl Hct 26.4 L (37.0-47.0) % MCV 72.3 L (80.0-98.0) fL MCH 24.9 L (27.0-33.0) pg MCHC 34.5 (31.0-35.0) g/dl RDW 15.2 (11.0-16.0) % Plt Count 30 L (160-400) X10*3/uL MPV TNP Immature Gran % (Auto) Cancelled Neut % (Auto) Cancelled Lymph % (Auto) Cancelled [place] % (Auto) Cancelled Eos % (Auto) Cancelled Baso % (Auto) Cancelled Lymph # (Auto) Cancelled [place] # (Auto) Cancelled Eos # (Auto) Cancelled Baso # (Auto) Cancelled Abs Immat Gran (auto) Cancelled Absolute Neuts (auto) Cancelled Absolute Nucleated RBC 0.000 (0.0-0.012) X10*3/uL Nucleated RBC % (auto) 0.0 (0.0-0.2) /100WBC Neutrophils % (Manual) 71 (45-73) % Band Neutrophils % 4 (3-5) % Lymphocytes % (Manual) 13 L (20-40) % Monocytes % (Manual) 12 H (2-11) % Abs Neuts (Manual) 8.9 H (2.0-8.3) X10*3/uL Lymphocytes # (Manual) 1.5 (1.2-4.9) X10*3/uL Monocytes # (Manual) 1.4 H (0.1-1.2) X10*3/uL Toxic Vacuolation PRESENT Platelet Estimate DECREASED (NORMAL) Plt Morphology Comment NORMAL RBC Morphology NOTED [place] Cells 2+ (3-5) /OIF Acanthocytes (Spur) 2+ (3-5) /OIF Schistocytes 1+ (0-2) /OIF PT (9.9-13.0) SEC INR (0.9-1.1) D-Dimer High Sensitivty NG/ML Sodium 123 L (135-145) mmol/L Potassium 4.8 (3.3-5.1) mmol/L Chloride 89 L (96-108) mmol/L Carbon Dioxide 17 L (22-29) mmol/L Anion Gap 22 H (12-20) BUN 83 H (9-16) mg/dL Creatinine 2.51 H (0.5-1.4) mg/dL Estim Creat Clear Calc 26.2 Estimated GFR 24 Random Glucose 92 (60-115) mg/dL Osmolality (281-305) mosm/kg Lactic Acid (0.5-2.0) mmol/L Calcium 7.8 L D (8.4-10.2) mg/dL Magnesium 2.0 (1.6-2.6) mg/dL Total Bilirubin 0.9 (0.0-1.0) mg/dL Direct Bilirubin 0.7 H (0.0-0.5) mg/dL AST 142 H (5-31) U/L ALT 65 H (0-31) U/L Alkaline Phosphatase 91 D (39-117) U/L Total Creatine Kinase 14 L (26-140) U/L Troponin I High Sens (<3.5-17.0) ng/L Total Protein 6.6 (6.5-8.0) g/dL Albumin 2.4 L D (3.5-5.0) g/dL Ethyl Alcohol mg/dL COVID-19 ([facility]) (Negative) COVID-19 Clin Com Influenza Type A (PCR) NEGATIVE (Negative) Influenza Type B (PCR) NEGATIVE (Negative) RSV RNA Qual (PCR) NEGATIVE (Negative) SARS-CoV-2 RNA (RT-PCR) NEGATIVE (Negative) 03/31/21 03/31/21 03/31/21 Range/Units 21:53 21:53 21:53 WBC (4.8-10.8) X10*3/uL RBC (4.20-5.50) X10*6/uL Hgb (12.0-16.0) g/dl Hct (37.0-47.0) % MCV (80.0-98.0) fL MCH (27.0-33.0) pg MCHC (31.0-35.0) g/dl RDW (11.0-16.0) % Plt Count (160-400) X10*3/uL MPV Immature Gran % (Auto) Neut % (Auto) Lymph % (Auto) [place] % (Auto) Eos % (Auto) Baso % (Auto) Lymph # (Auto) [place] # (Auto) Eos # (Auto) Baso # (Auto) Abs Immat Gran (auto) Absolute Neuts (auto) Absolute Nucleated RBC (0.0-0.012) X10*3/uL Nucleated RBC % (auto) (0.0-0.2) /100WBC Neutrophils % (Manual) (45-73) % Band Neutrophils % (3-5) % Lymphocytes % (Manual) (20-40) % Monocytes % (Manual) (2-11) % Abs Neuts (Manual) (2.0-8.3) X10*3/uL Lymphocytes # (Manual) (1.2-4.9) X10*3/uL Monocytes # (Manual) (0.1-1.2) X10*3/uL Toxic Vacuolation Platelet Estimate (NORMAL) Plt Morphology Comment RBC Morphology [place] Cells /OIF Acanthocytes (Spur) /OIF Schistocytes /OIF PT 18.9 H (9.9-13.0) SEC INR 1.6 H (0.9-1.1) D-Dimer High Sensitivty 3263 NG/ML Sodium (135-145) mmol/L Potassium (3.3-5.1) mmol/L Chloride (96-108) mmol/L Carbon Dioxide (22-29) mmol/L Anion Gap (12-20) BUN (9-16) mg/dL Creatinine (0.5-1.4) mg/dL Estim Creat Clear Calc Estimated GFR Random Glucose (60-115) mg/dL Osmolality (281-305) mosm/kg Lactic Acid 3.2 H* (0.5-2.0) mmol/L Calcium (8.4-10.2) mg/dL Magnesium (1.6-2.6) mg/dL Total Bilirubin (0.0-1.0) mg/dL Direct Bilirubin (0.0-0.5) mg/dL AST (5-31) U/L ALT (0-31) U/L Alkaline Phosphatase (39-117) U/L Total Creatine Kinase (26-140) U/L Troponin I High Sens < 3.5 (<3.5-17.0) ng/L Total Protein (6.5-8.0) g/dL Albumin (3.5-5.0) g/dL Ethyl Alcohol mg/dL COVID-19 ([facility]) (Negative) COVID-19 Clin Com Influenza Type A (PCR) (Negative) Influenza Type B (PCR) (Negative) RSV RNA Qual (PCR) (Negative) SARS-CoV-2 RNA (RT-PCR) (Negative) 03/31/21 03/31/21 03/31/21 Range/Units 21:53 21:53 22:21 WBC (4.8-10.8) X10*3/uL RBC (4.20-5.50) X10*6/uL Hgb (12.0-16.0) g/dl Hct (37.0-47.0) % MCV (80.0-98.0) fL MCH (27.0-33.0) pg MCHC (31.0-35.0) g/dl RDW (11.0-16.0) % Plt Count (160-400) X10*3/uL MPV Immature Gran % (Auto) Neut % (Auto) Lymph % (Auto) [place] % (Auto) Eos % (Auto) Baso % (Auto) Lymph # (Auto) [place] # (Auto) Eos # (Auto) Baso # (Auto) Abs Immat Gran (auto) Absolute Neuts (auto) Absolute Nucleated RBC (0.0-0.012) X10*3/uL Nucleated RBC % (auto) (0.0-0.2) /100WBC Neutrophils % (Manual) (45-73) % Band Neutrophils % (3-5) % Lymphocytes % (Manual) (20-40) % Monocytes % (Manual) (2-11) % Abs Neuts (Manual) (2.0-8.3) X10*3/uL Lymphocytes # (Manual) (1.2-4.9) X10*3/uL Monocytes # (Manual) (0.1-1.2) X10*3/uL Toxic Vacuolation Platelet Estimate (NORMAL) Plt Morphology Comment RBC Morphology [place] Cells /OIF Acanthocytes (Spur) /OIF Schistocytes /OIF PT (9.9-13.0) SEC INR (0.9-1.1) D-Dimer High Sensitivty NG/ML Sodium (135-145) mmol/L Potassium (3.3-5.1) mmol/L Chloride (96-108) mmol/L Carbon Dioxide (22-29) mmol/L Anion Gap (12-20) BUN (9-16) mg/dL Creatinine (0.5-1.4) mg/dL Estim Creat Clear Calc Estimated GFR Random Glucose (60-115) mg/dL Osmolality 282 (281-305) mosm/kg Lactic Acid (0.5-2.0) mmol/L Calcium (8.4-10.2) mg/dL Magnesium (1.6-2.6) mg/dL Total Bilirubin (0.0-1.0) mg/dL Direct Bilirubin (0.0-0.5) mg/dL AST (5-31) U/L ALT (0-31) U/L Alkaline Phosphatase (39-117) U/L Total Creatine Kinase (26-140) U/L Troponin I High Sens (<3.5-17.0) ng/L Total Protein (6.5-8.0) g/dL Albumin (3.5-5.0) g/dL Ethyl Alcohol < 10 mg/dL COVID-19 ([facility]) Negative (Negative) COVID-19 Clin Com See Note Influenza Type A (PCR) (Negative) Influenza Type B (PCR) (Negative) RSV RNA Qual (PCR) (Negative) SARS-CoV-2 RNA (RT-PCR) (Negative) Imaging Data Chest x-ray: Attestation: I personally reviewed and interpreted this imaging study as follows: Radiologist's impression: [address] [address] XRay Report Signed Patient: Vanda Ch MR#: [id number] : 1995 Acct:[id number] Age/Sex: 25 / F ADM Date: 03/31/21 Loc: .ED Attending Dr: Ordering Physician: Franca Vyas NP Date of Service: 03/31/21 Procedure(s): XR chest 2V Accession Number(s): [id number] cc: Franca Vyas NP~ EXAMINATION: XR CHEST CLINICAL INFORMATION: Shortness of breath COMPARISON: None TECHNIQUE: 2 views of the chest were obtained. FINDINGS: Cardiac silhouette is normal in size. Mildly hypoinflated lungs. Extensive patchy bilateral airspace disease. Blunting of left costophrenic angle likely represents a tiny amount of pleural fluid with superimposed airspace disease. No pneumothorax. No acute osseous abnormality. XR/XR chest 2V IMPRESSION: Patchy bilateral airspace disease, most consistent with Covid pneumonia. ECG Data Attestation: I personally reviewed and interpreted this ECG as follows: Interpretation: sinus tachycardia with a rate of 108, normal OR, QRS normal QT Critical Care Time Critical Care Time Critical Care Time: Yes Total Critical Care Time: 60 Attestation: management of hypoxia, hypotension with supplemental oxygen and iv fluid resuscitation admission to medicine team with shared decision making done in regards to patient's care Discharge Plan Discharge Clinical Impression: Pneumonia, Leukocytosis, Thrombocytopenia, Anemia, Acute hyponatremia, MELITON (acute kidney injury), Hypoxia Patient Disposition: Admitted As Inpatient
--- NOTE | 2021-03-31 21:07 | PC.NURSE ---
pt moved to [facility] section
[2021-03-31 21:19] VITALS: BP 91/45; PULSE 114; RESP 46; TEMP 37; O2SAT 96
[2021-03-31] MEDS: cefTRIAXone sodium 1 GM in 0.9 % Sodium Chloride 50 ML IV (22:07)
[2021-03-31] MEDS: 0.9 % Sodium Chloride 1,632.93 ML 1632.93 ML IV (22:07)
[2021-03-31 22:20] LABS: Hematocrit 26.4 % (37.0-47.0); Hemoglobin 9.1 g/dl (12.0-16.0); Mean Corpuscular HGB Conc 34.5 g/dl (31.0-35.0); Mean Corpuscular Hemoglobin 24.9 pg (27.0-33.0); Mean Corpuscular Volume 72.3 fL (80.0-98.0); Red Blood Count 3.65 X10*6/uL (4.20-5.50); Red Cell Distribution Width 15.2 % (11.0-16.0); White Blood Count 11.8 X10*3/uL (4.8-10.8)
[2021-03-31 22:21] LABS: Platelet Count 30 X10*3/uL (160-400)
--- NOTE | 2021-03-31 22:29 | PC.NURSE ---
IV inserted, PT medicated per JUN, labs and cultures obtained. PT was placed on O2 at 2L/min due to low O2 sat at 82%. PT is currently satting at 98% with supplemental O2. Awaiting lab results at this time. PT is being treated under sepsis protocols.
[2021-03-31 22:31] LABS: Ethanol < 10 mg/dL
[2021-03-31 22:37] LABS: Lactic Acid 3.2 mmol/L (0.5-2.0); Troponin-I High Sensitivity < 3.5 ng/L (<3.5-17.0)
[2021-03-31 22:44] LABS: COVID-19 Test Negative (Negative)
[2021-03-31 22:45] LABS: Alanine Aminotransferase 65 U/L (0-31); Albumin Level 2.4 g/dL (3.5-5.0); Alkaline Phosphatase 91 U/L (39-117); Anion Gap 22 (12-20); Aspartate Amino Transferase 142 U/L (5-31); Band Neutrophils Percent 4 % (3-5); Bilirubin Direct 0.7 mg/dL (0.0-0.5); Bilirubin Total 0.9 mg/dL (0.0-1.0); Blood Urea Nitrogen 83 mg/dL (9-16); Calcium 7.8 mg/dL (8.4-10.2); Carbon Dioxide 17 mmol/L (22-29); Chloride 89 mmol/L (96-108); Creatinine Clr Calc Pharmacy 26.2; Estimated Glomerular Filt Rate 24; Glucose Random 92 mg/dL (60-115); Lymphocytes Absolute Manual 1.5 X10*3/uL (1.2-4.9); Lymphocytes Percent Manual 13 % (20-40); Monocytes Absolute Manual 1.4 X10*3/uL (0.1-1.2); Monocytes Percent Manual 12 % (2-11); Neutrophils Absolute Manual 8.9 X10*3/uL (2.0-8.3); Neutrophils Percent Manual 71 % (45-73); Platelet Estimate DECREASED (NORMAL); Platelet Morphology Comment NORMAL; Potassium 4.8 mmol/L (3.3-5.1); RBC Morphology NOTED; Sodium 123 mmol/L (135-145); Total Protein 6.6 g/dL (6.5-8.0)
[2021-03-31 22:46] LABS: Acanthocytes 2+ (3-5) /OIF; Burr Cells 2+ (3-5) /OIF; Schistocytes 1+ (0-2) /OIF; Toxic Vacuolation PRESENT
[2021-03-31 22:48] LABS: INTERNATIONAL NORM RATIO 1.6 (0.9-1.1); Prothrombin Time 18.9 SEC (9.9-13.0)
[2021-03-31 22:50] VITALS: BP 104/47; PULSE 102; RESP 35; TEMP 37.1; O2SAT 97
[2021-03-31 22:50] LABS: D Dimer High Sensitivity 3263 NG/ML
[2021-03-31 22:54] LABS: Influenza A PCR NEGATIVE (Negative); Influenza B PCR NEGATIVE (Negative); Resp Syncy Virus RNA Qual PCR NEGATIVE (Negative); SARS COV2 PCR INHOUSE NEGATIVE (Negative)
[2021-03-31 23:00] LABS: Osmolality, Serum 282 mosm/kg (281-305)
[2021-03-31] MEDS: Piperacillin Sodium/Tazobactam 3.375 GM in 0.9 % Sodium Chloride 50 ML IV (23:19)
[2021-03-31 23:21] VITALS: RESP 26
[2021-03-31] MEDS: Morphine Sulfate 2 MG/ML CARTRIDGE IVPUSH (23:21)
[2021-03-31 23:31] VITALS: BP 107/41; PULSE 102; RESP 26; O2SAT 92
--- NOTE | 2021-03-31 23:56 | P.HPHOSP_ITS ---
History of Present Illness Date of Service: 03/31/21 Chief Complaint: SOB 25-year-old female with a past medical history of right forearm cellulitis /open wound; history of IV drug abuse -abuses IV heroin and IV cocaine; presented to the hospital today with a chief complaint of shortness of breath. Patient reported that over the past 1 week to 10 days she has not been feeling well; complains of subjective fevers and chills, shortness of breath which worsens on exertion; complains of pleuritic chest pain intermittent in nature nonradiating; complains of dry cough; had few episodes of diarrhea; denies any new skin rash; denies snorting IV drugs. Complains of poor intake. Denies any headaches or blurry visions. Denies any neck pain, back pain, joint pains. Denies any signs of bleeding. Review of all other systems is negative except mentioned above ER course: Per ER team patient on presentation noted to be mildly tachypneic, wheezing, complaint of pleuritic chest pain; EKG nonischemic; chest x-ray showed multifocal pneumonia /patchy opacities consistent COVID. Rapid COVID test was negative, RSV negative, influenza negative. On labs noted to have mild leukocytosis, thrombocytopenia; MELITNO, mild transaminitis. Also noted to have hyponatremia to 123. Patient received 30 cc/kg normal saline, IV vancomycin and Zosyn; Patient was hypoxic to 87% on room air-placed on supplemental oxygen; Patient's blood pressure was 91/45-which improved to 107 over 41 after IV fluids. Patient's D-dimer was elevated to 3263 - unable to do CT chest given MELITON. Given empiric Lovenox at 1 milligram/kg in the ER. Admitted for further management [facility] Medical History (Updated 04/04/21 @ 14:17 by Polo Holt MD) Bacteremia Substance abuse Social History Household Members: None Housing: Other Housing Other:: homeless but states staying with friends Do you presently have visiting nurse or other home services: No Unable to assess alcohol history related to: Unable to respond and Refusing to respond Alcohol intake: never Patient Tobacco Use Status: Current everyday Tobacco user Substance Use Type: Crack/Cocaine, Heroin, IV Drugs and Methamphetamine service: No Current occupational status: unemployed Meds Allergies Allergy/AdvReac Type Severity Reaction Status Date / Time No Known Allergies Allergy Verified 05/12/20 05:11 Active Medications: Current Medications Enoxaparin Sodium (Enoxaparin Sodium 120 Mg/0.8 Ml Syringe) 55 mg 1 mg/kg (55 mg) SUBCUT Q12H [facility] Vancomycin HCl 1,000 mg/ (Sodium Chloride) 270 mls @ 270 mls/hr IV Q12H [facility] Piperacillin Sod/Tazobactam (Sod 2.25 gm/ Sodium Chloride) 50 mls @ 100 mls/hr IV Q8H [facility] Pharmacy Consult (Consult Rx Vancomycin Dosing) 1 each MISCELLANE DAILY PRN PRN Reason: Consult order Home Medications Medication Instructions Recorded Confirmed Last Taken Type No Known Home Meds 04/01/21 04/01/21 Unknown History Physical Exam Vital Signs and Narrative: Vital Signs: Last Vital Signs Temp 98.7 F 03/31/21 22:50 Pulse 102 H 03/31/21 23:31 Resp 26 H 03/31/21 23:31 BP 107/41 L 03/31/21 23:31 Pulse Ox 92 03/31/21 23:31 BMI result Body Mass Index 24.2 Gen: Appears be in no acute distress. noted to be anxious. On supplemental oxygen. Saturating 90-93% on 3 L of oxygen. Not in respiratory distress. Mildly tachypneic. HEENT: NCAT, Moist mucosa. Pulmonary: coarse breath sounds, fair air entry CVS: Normal S1-S2 Abdomen: BS+, Soft, Nontender Extremities: Warm well perfused; Right forearm lesion as noted in the picture below has been chronic since April per patient and unchanged Neuro: Alert and awake. Results Labs CBC and Chem 7: 04/13/21 04:38 04/12/21 05:36 Labs: Laboratory Results - last 24 hr 03/31/21 03/31/21 03/31/21 21:30 21:53 21:53 MCV 72.3 L MCH 24.9 L MCHC 34.5 RDW 15.2 Plt Count 30 L MPV TNP Immature Gran % (Auto) Cancelled Neut % (Auto) Cancelled Lymph % (Auto) Cancelled [place] % (Auto) Cancelled Eos % (Auto) Cancelled Baso % (Auto) Cancelled Lymph # (Auto) Cancelled [place] # (Auto) Cancelled Eos # (Auto) Cancelled Baso # (Auto) Cancelled Abs Immat Gran (auto) Cancelled Absolute Neuts (auto) Cancelled Absolute Nucleated RBC 0.000 Nucleated RBC % (auto) 0.0 Neutrophils % (Manual) 71 Band Neutrophils % 4 Lymphocytes % (Manual) 13 L Monocytes % (Manual) 12 H Abs Neuts (Manual) 8.9 H Lymphocytes # (Manual) 1.5 Monocytes # (Manual) 1.4 H Toxic Vacuolation PRESENT Platelet Estimate DECREASED Plt Morphology Comment NORMAL RBC Morphology NOTED [place] Cells 2+ (3-5) Acanthocytes (Spur) 2+ (3-5) Schistocytes 1+ (0-2) PT INR D-Dimer High Sensitivty Anion Gap 22 H Estim Creat Clear Calc 26.2 Estimated GFR 24 Random Glucose 92 Osmolality Lactic Acid Calcium 7.8 L D Magnesium 2.0 Total Bilirubin 0.9 Direct Bilirubin 0.7 H AST 142 H ALT 65 H Alkaline Phosphatase 91 D Total Creatine Kinase 14 L Troponin I High Sens Total Protein 6.6 Albumin 2.4 L D Ethyl Alcohol COVID-19 ([facility]) COVID-19 Clin Com Influenza Type A (PCR) NEGATIVE Influenza Type B (PCR) NEGATIVE RSV RNA Qual (PCR) NEGATIVE SARS-CoV-2 RNA (RT-PCR) NEGATIVE 03/31/21 03/31/21 03/31/21 21:53 21:53 21:53 MCV MCH MCHC RDW Plt Count MPV Immature Gran % (Auto) Neut % (Auto) Lymph % (Auto) [place] % (Auto) Eos % (Auto) Baso % (Auto) Lymph # (Auto) [place] # (Auto) Eos # (Auto) Baso # (Auto) Abs Immat Gran (auto) Absolute Neuts (auto) Absolute Nucleated RBC Nucleated RBC % (auto) Neutrophils % (Manual) Band Neutrophils % Lymphocytes % (Manual) Monocytes % (Manual) Abs Neuts (Manual) Lymphocytes # (Manual) Monocytes # (Manual) Toxic Vacuolation Platelet Estimate Plt Morphology Comment RBC Morphology [place] Cells Acanthocytes (Spur) Schistocytes PT 18.9 H INR 1.6 H D-Dimer High Sensitivty 3263 Anion Gap Estim Creat Clear Calc Estimated GFR Random Glucose Osmolality Lactic Acid 3.2 H* Calcium Magnesium Total Bilirubin Direct Bilirubin AST ALT Alkaline Phosphatase Total Creatine Kinase Troponin I High Sens < 3.5 Total Protein Albumin Ethyl Alcohol COVID-19 ([facility]) COVID-19 Clin Com Influenza Type A (PCR) Influenza Type B (PCR) RSV RNA Qual (PCR) SARS-CoV-2 RNA (RT-PCR) 03/31/21 03/31/21 03/31/21 21:53 21:53 22:21 MCV MCH MCHC RDW Plt Count MPV Immature Gran % (Auto) Neut % (Auto) Lymph % (Auto) [place] % (Auto) Eos % (Auto) Baso % (Auto) Lymph # (Auto) [place] # (Auto) Eos # (Auto) Baso # (Auto) Abs Immat Gran (auto) Absolute Neuts (auto) Absolute Nucleated RBC Nucleated RBC % (auto) Neutrophils % (Manual) Band Neutrophils % Lymphocytes % (Manual) Monocytes % (Manual) Abs Neuts (Manual) Lymphocytes # (Manual) Monocytes # (Manual) Toxic Vacuolation Platelet Estimate Plt Morphology Comment RBC Morphology [place] Cells Acanthocytes (Spur) Schistocytes PT INR D-Dimer High Sensitivty Anion Gap Estim Creat Clear Calc Estimated GFR Random Glucose Osmolality 282 Lactic Acid Calcium Magnesium Total Bilirubin Direct Bilirubin AST ALT Alkaline Phosphatase Total Creatine Kinase Troponin I High Sens Total Protein Albumin Ethyl Alcohol < 10 COVID-19 ([facility]) Negative COVID-19 Clin Com See Note Influenza Type A (PCR) Influenza Type B (PCR) RSV RNA Qual (PCR) SARS-CoV-2 RNA (RT-PCR) Imaging Radiologist's Impressions: Impressions Chest X-Ray 03/31/21 22:26 IMPRESSION: Patchy bilateral airspace disease, most consistent with Covid pneumonia. Assessment and Plan (1) Pneumonia: Status: Acute 25-year-old female with a past medical history of right forearm cellulitis /open wound; history of IV drug abuse -abuses IV heroin and IV cocaine; pres ented to the hospital today with a chief complaint of shortness of breath. noted to have following conditions Sepsis in the setting of multifocal pneumonia: Chest x-ray Concern for COVID- 19. Patient's rapid COVID test negative. continue IV vancomycin and Zosyn. id consulted for further recommendations. Follow-up cultures Will also obtain echocardiogram to rule out endocarditis given significant IV drug abuse history and concerns for sepsis. Reactive airway disease: Continue DuoNeb standing and p.r.n. Empiric dexamethasone. Right forearm lesion: Patient reports that chronic. Supportive care. follow-up with the general surgery/vascular surgery. Severe thrombocytopenia: Likely in the setting of sepsis. Patient currently denies any signs of bleeding. Viral studies including RSV, COVID-19, rapid flu -negative so far. Will also test for HIV. Patient verbally consented. Severe hyponatremia: Likely in setting of low solute state. Will obtain urine osmolality, serum osmolality, urine chloride, creatinine, sodium. Nephrology consult patient received about 1.6 L of fluid - normal saline in the ER; will obtain stat chemistry and adjust fluids accordingly. MELITON: Likely prerenal. Avoid nephrotoxins. Gentle IV fluids. Transaminitis: Again likely in the setting of sepsis. Was obtain acute hepatitis panel and right upper quadrant ultrasound. Polysubstance abuse/ opiate abuse/cocaine abuse: addiction Medicine consult. Monitor on COWS protocol. Elevated D-dimer: Venous duplex negative. Unable to do CT chest secondary MELITON. Will obtain V/Q scan. patient received empiric therapeutic Lovenox in the ER-> Which should cover for the next 24 hours given her renal function. Will defer to the day hospitalist in regards follow-up on the V/Q scan results and anticoagulation as needed. DVT prophylaxis: SCDs Code status: Full code Quality Stroke Does the patient have a stroke diagnosis?: No VTE Prior VTE?: No VTE Risk Level:: Medical - moderate - high VTE Device Contraindication: Treatment Not Indicated VTE Drug Contraindication: N/A - Med Ordered
[2021-03-31] MEDS: vancomycin HCL 750 MG in 0.9 % Sodium Chloride 250 ML 265 MG IV (23:59)
[2021-04-01] VITALS (14 sets, daily range): BP systolic 90–120; BP diastolic 34–58; PULSE 81–121; RESP 17–52; TEMP 35.9–39.3; O2SAT 90–99
[2021-04-01 00:15] LABS: Reflex Lactate? Lactic Acid Added
[2021-04-01] MEDS: Enoxaparin Sodium 60 MG/0.6 ML SYRINGE 55 MG SUBCUT (00:54)
[2021-04-01 00:56] LABS: ~Lactic Acid-LAB USE ONLY 2.1 mmol/L (0.5-2.0)
[2021-04-01] MEDS: Dextrose 5 % and 0.9 % NaCl 1,000 ML 50 ML IVCONT (01:08)
[2021-04-01 01:24] LABS: Anion Gap 16 (12-20); Blood Urea Nitrogen 79 mg/dL (9-16); Calcium 6.9 mg/dL (8.4-10.2); Carbon Dioxide 17 mmol/L (22-29); Chloride 98 mmol/L (96-108); Creatinine Clr Calc Pharmacy 31.6; Estimated Glomerular Filt Rate 30; Glucose Random 98 mg/dL (60-115); Potassium 4.5 mmol/L (3.3-5.1); Sodium 126 mmol/L (135-145)
[2021-04-01 01:44] LABS: Osmolality, Serum 286 mosm/kg (281-305)
[2021-04-01] MEDS: Morphine Sulfate 2 MG/ML CARTRIDGE 1 MG IVPUSH (01:59)
[2021-04-01 02:10] LABS: Appearance Urine HAZY; Color Urine YELLOW; Glucose Urine UA NEG (NEG); Leukocyte Esterase Urine 2+ (NEG); Nitrite Urine NEG (NEG); PH 5.5 (5.0-8.0); Specific Gravity - Urine 1.025 (1.005-1.025); UACC Culture Trigger YES; Urine Blood 2+ (NEG); Urine Ketones NEG (NEG); Urine Protein TRACE MG/DL (NEG-TRACE)
[2021-04-01 02:13] LABS: UPreg QC Valid YES; Urine Pregnancy NEGATIVE (NEGATIVE)
[2021-04-01 02:16] LABS: Bacteria Urine 2+ /LPF; Mucus Urine 2+ /LPF; Squamous Epithelial Cell Urine 1+ /LPF; WBC Urine 30-49 /HPF (0-4)
[2021-04-01 02:26] LABS: Amphetamine Screen Urine Not Detected (Not Detect); Barbiturates, Urine Not Detected (Not Detect); Benzodiazepines Screen Urine Not Detected (Not Detect); Cannabinoid Screen Urine Not Detected (Not Detect); Cocaine Screen Urine POSITIVE (Not Detect); Fentanyl, urine POSITIVE (Not Detect); Opiate Screen Urine POSITIVE (Not Detect); Phencyclidine Screen Urine POSITIVE (Not Detect)
[2021-04-01 02:45] LABS: Reflex Lactate? 2 Y
[2021-04-01 03:27] LABS: Basophils Percent Auto 0.2 % (0-2); Eosinophils Percent Auto 0.2 % (0-4); LEFT SHIFT? 1; MANUAL DIFF FLAG NO; Monocytes Absolute Auto 0.5 X10*3/uL (0.1-1.2); SCAN SMEAR FLAG 1
[2021-04-01 03:29] LABS: Hemoglobin 8.1 g/dl (12.0-16.0); Imm Gran Abs Auto 0.12 X10*3/uL (0.00-0.03); Imm Gran Pct Auto 2.5 % (0.0-0.4); Lymphocytes Absolute Auto 0.7 X10*3/uL (1.2-4.9); Lymphocytes Percent Auto 14.6 % (20-40); Mean Corpuscular HGB Conc 33.8 g/dl (31.0-35.0); Mean Corpuscular Hemoglobin 24.7 pg (27.0-33.0); Mean Corpuscular Volume 73.2 fL (80.0-98.0); Monocytes Percent Auto 10.8 % (2-11); Neutrophils Absolute Auto 3.5 x10*3/uL (2.0-8.3); Neutrophils Percent Auto 71.7 % (45-73); Red Blood Count 3.28 X10*6/uL (4.20-5.50); White Blood Count 4.8 X10*3/uL (4.8-10.8)
[2021-04-01 03:36] LABS: ~Lactic Acid-LAB USE ONLY 1.9 mmol/L (0.5-2.0)
[2021-04-01 03:48] LABS: PLT ABN DIST 1; Platelet Count 23 X10*3/uL (160-400)
[2021-04-01 03:56] LABS: Anion Gap 17 (12-20); Blood Urea Nitrogen 74 mg/dL (9-16); Calcium 7.5 mg/dL (8.4-10.2); Carbon Dioxide 16 mmol/L (22-29); Chloride 98 mmol/L (96-108); Creatinine Clr Calc Pharmacy 35.8; Estimated Glomerular Filt Rate 34; Glucose Random 142 mg/dL (60-115); Potassium 4.1 mmol/L (3.3-5.1); Sodium 127 mmol/L (135-145)
[2021-04-01 04:28] LABS: Creatinine Urine 77.91 mg/dL
[2021-04-01 04:33] LABS: Osmolality Urine 344 mosm/kg (373-1093)
[2021-04-01 04:39] LABS: HBS Num1 16.22 mIU/mL (0-7.99); HIV AB/AG Nonreactive (Nonreactive); HIV Num 1 0.07 S/CO (0.00-0.99); Hepatitis A Antibody IgM 0.23 Index (0-0.79); ~Hepatitis A Antibody IgM Nonreactive (Nonreactive); ~Hepatitis B Surface Antibody REACTIVE (Nonreactive)
[2021-04-01] MEDS: oxyCODONE HCl Immed Release 5 MG TABLET PO ×2 (04:58→15:50)
[2021-04-01 05:08] LABS: HBc Num1 0.23 S/CO (0.00-0.79); HBsAGNum1 0.17 S/CO (0.00-0.99); Hepatitis B Core Antibody Nonreactive (Nonreactive); Hepatitis B Surface Antigen Negative (Negative); ~HepC Num1 15.12 S/CO (0.00-0.79); ~Hepatitis C Antibody Reactive (Nonreactive)
[2021-04-01] MEDS: 0.9 % Sodium Chloride 1,000 ML 500 ML IV (05:59)
--- NOTE | 2021-04-01 05:59 | PC.NURSE ---
PT satting at 89-90% on 2 L/min of O2. Oxygen increased to 3 L/min, O2 sat increased to 93-94%.
[2021-04-01] MEDS: Ibuprofen 400 MG TABLET PO (06:10)
[2021-04-01 07:06] LABS: Lactic Acid 2.1 mmol/L (0.5-2.0)
--- NOTE | 2021-04-01 07:54 | PHA.MEDREC ---
Pharmacy Consult ? Medication Reconciliation Pharmacy has completed the medication reconciliation. Patient reports no medications. Kesha Rachel, JoannaD
[2021-04-01] MEDS: dexAMETHasone 6 MG TABLET PO (08:11)
[2021-04-01] MEDS: 0.9 % Sodium Chloride Flush 3 ML SYRINGE IVFLUSH ×2 (08:12→15:51)
[2021-04-01] MEDS: Piperacillin Sodium/Tazobactam 2.25 GM in 0.9 % Sodium Chloride 50 ML IV ×2 (08:22→18:04)
--- NOTE | 2021-04-01 08:32 | PC.NURSE ---
pt has a bloody tinged prod cough. stephanie felipe (recovery) at bedside.
[2021-04-01] MEDS: guaiFENesin 100 MG/5 ML LIQUID PO (08:37)
[2021-04-01] MEDS: Albuterol/Iprat 2.5/0.5MG 3 ML AMPUL.NEB INHALE ×2 (08:39→20:28)
[2021-04-01 08:41] LABS: Reflex Lactate? Lactic Acid Added
[2021-04-01 08:45] LABS: Creatinine Clr Calc Pharmacy 43.9; Estimated Glomerular Filt Rate 43
[2021-04-01 08:57] LABS: ~Lactic Acid-LAB USE ONLY 1.8 mmol/L (0.5-2.0)
--- NOTE | 2021-04-01 08:57 | PHA.PROG ---
Admission Date/Time: March 31, 2021 23:55 Indication: Multifocal PNA, possible sepsis Weight in k.431 kg Serum Creatinine - Last 168 Hours 03/31/21 04/01/21 04/01/21 21:53 00:41 03:20 Creatinine 2.51 H 2.08 H 1.84 H 04/01/21 08:17 Creatinine 1.50 H Estimated CrCl and GFR - Last 168 Hours 03/31/21 04/01/21 04/01/21 21:53 00:41 03:20 Estim Creat Clear Calc 26.2 31.6 35.8 Estimated GFR 24 30 34 04/01/21 08:17 Estim Creat Clear Calc 43.9 Estimated GFR 43 Vancomycin Loading Dose: N/A - 750 mg given in ED on 03/31 @ 2358 Current Vancomycin Dosing Regimen: 1250 mg Q24H Date and Time for next Vancomycin Level to be drawn: 04/03 Pharmacist Comments on Vancomycin Plan: First dose of vancomycin 750 mg given in the ED on 03/31 @ 2358 Will start maintenance dose vancomycin 1250 mg Q24H on 04/01 @ 0. Expected AUC 530 with a trough of 15.1 Patient's renal function is improving rapidly. SCr on 03/31 was 2.5 and no decrease to 1.5 on 04/01 @ 816. Pharmacy will continue to monitor patient renal function and adjust accordingly so patient stays in therapeutic levels. Trough will be drawn prior to 4th dose on 04/03 @ 2099. Kesha Rachel PharmD Vancomycin dosing will take advantage of [employer] as a clinical decision support tool that uses Bayesian modeling to calculate individual patient's pharmacokinetic parameters and forecast the patient's drug concentration time course with the target goal AUC 24 range of 400 - 600 mg/L/hr.
--- NOTE | 2021-04-01 09:00 | MHC.RECOVRN ---
Met with pt in ED13 after consult placed to Addiction Medicine. Pt reports using heroin, 1 bundle IV daily, as well as cocaine, 1 gram IV daily. Last use prior to arrival (around 9 pm on 03/31). -first use age 22 -denies significant time in recovery -2 ATS admissions, one at [place], one in [place]; last admission last year -denies overdoses -denies hospitalizations related to infections from IVDU, however, has a wound on right arm related to use that pt did not receive tx for. States I don't even know how long it's been there. -hx methadone at [facility], 70 mg, last dose about 6 months ago -staying with a friend in [place], would like to resume methadone and link to [facility] on [facility] -current withdrawal symptoms include sweating Pt educated regarding methadone initiation while admitted, understands and would like to proceed. Denies questions or concerns at this time. Discussed with Jinny Wright APRN. Will continue to follow.
--- NOTE | 2021-04-01 09:52 | MHC.CM.PN ---
CM met with Patient at bedside.Patient is homeless and staying with Friends. Patient is functionally independent and has no PCP. Home/no services appears to be the likely plan and CM has initiated and will follow for dc planning.
--- NOTE | 2021-04-01 10:19 | PM.CNNEP ---
History of Present Illness Reason for Consult Consult date: 04/01/21 Reason for consult: MELITON Chief Complaint Chief complaint: PNA History of Present Illness Narrative: ?25-year-old female with a history of right forearm cellulitis /open wound; history of IV drug abuse -abuses IV heroin and IV cocaine; presented to the hospital with a chief complaint of shortness of breath.? Patient reported that over the past 1 week to 10 days she has not been feeling well; complains of subjective fevers and chills, shortness of breath which worsens on exertion; complains of pleuritic chest pain intermittent in nature nonradiating; complains of dry cough; had few episodes of diarrhea; denies any new skin rash; denies snorting IV drugs. Complains of poor intake. Denies any headaches or blurry visions.? Denies any neck pain, back pain, joint pains.? Denies any signs of bleeding.? Review of all other systems is negative except mentioned above patient on presentation noted to be mildly tachypneic, wheezing, complaint of? pleuritic chest pain; EKG nonischemic; chest x-ray showed multifocal pneumonia /patchy opacities consistent COVID. Rapid COVID test was negative, RSV negative, influenza negative. On labs noted to have mild leukocytosis, thrombocytopenia; MELITON, mild transaminitis.? Also noted to have hyponatremia to 123.? Patient received 30 cc/kg normal saline, IV vancomycin and Zosyn; Consult requested for MELITON Review of Systems Review of Systems Yes all other systems are reviewed and are negative Denies Abnormal speech present [facility] Past Medical History Medical History (Updated 04/01/21 @ 18:43 by Jinny Wright CNP) Bacteremia Substance abuse Social History Social History Household Members: None Housing: Other Housing Other:: homeless but states staying with friends Do you presently have visiting nurse or other home services: No Unable to assess alcohol history related to: Unable to respond and Refusing to respond Alcohol intake: never Patient Tobacco Use Status: Current everyday Tobacco user Substance Use Type: Crack/Cocaine, Heroin, IV Drugs and Methamphetamine service: No Current occupational status: unemployed Meds Allergies Allergy/AdvReac Type Severity Reaction Status Date / Time No Known Allergies Allergy Verified 05/12/20 05:11 Active Medications: Current Medications Albuterol/Ipratropium (Albuterol/Iprat 2.5/0.5mg 3 Ml Ampul.Neb) 3 ml INHALE RQ6H WHILE AWAKE [facility] Last Admin: 04/01/21 08:39 Dose: 3 ml Documented by: Albuterol/Ipratropium (Albuterol/Iprat 2.5/0.5mg 3 Ml Ampul.Neb) 3 ml INHALE RQ4H PRN PRN Reason: Shortness of Breath/Wheezing Dexamethasone (Dexamethasone 6 Mg Tablet) 6 mg PO DAILY [facility] Last Admin: 04/01/21 08:11 Dose: 6 mg Documented by: Guaifenesin (Guaifenesin 100 Mg/5 Ml Liquid) 5 ml PO Q4H PRN PRN Reason: Cough Last Admin: 04/01/21 08:37 Dose: 5 ml Documented by: Hydroxyzine HCl (Hydroxyzine Hcl 25 Mg Tablet) 25 mg PO Q6H PRN PRN Reason: Anxiety Dextrose/Sodium Chloride (D5ns) 1,000 mls @ 50 mls/hr IVCONT .Q20H [facility] Last Infusion: 04/01/21 05:58 Dose: 0 mls/hr Documented by: Piperacillin Sod/Tazobactam (Sod 2.25 gm/ Sodium Chloride) 50 mls @ 100 mls/hr IV Q8H [facility] Last Admin: 04/01/21 08:22 Dose: 100 mls/hr Documented by: Vancomycin HCl 1,250 mg/ (Sodium Chloride) 250 mls @ 166.667 mls/hr IV Q24H [facility] Melatonin (Melatonin 3 Mg Tablet) 6 mg PO BEDTIME PRN PRN Reason: Insomnia Oxycodone HCl (Oxycodone Hcl Immed Release 5 Mg Tablet) 5 mg PO Q6H PRN PRN Reason: Pain, Severe (Pain Scale 7-10) Last Admin: 04/01/21 04:58 Dose: 5 mg Documented by: Pharmacy Consult (Consult Rx Vancomycin Dosing) 1 each MISCELLANE DAILY PRN PRN Reason: Consult order Pharmacy Consult (Consult Rx Perform Med Rec) 1 each MISCELLANE ONCE PRN PRN Reason: Consult order Senna (Sennosides 8.6 Mg Tablet) 17.2 mg PO BEDTIME PRN PRN Reason: Constipation Sodium Chloride (0.9 % Sodium Chloride Flush 3 Ml Syringe) 3 ml IVFLUSH QSHIFT [facility] Last Admin: 04/01/21 08:12 Dose: 3 ml Documented by: Home Medications Medication Instructions Recorded Confirmed Last Taken Type No Known Home Meds 04/01/21 04/01/21 Unknown History Physical Exam Vital Signs: Last Vital Signs Temp 100.4 F 04/01/21 08:00 Pulse 95 04/01/21 08:39 Resp 36 H 04/01/21 08:15 BP 99/45 L 04/01/21 08:15 Pulse Ox 96 04/01/21 08:15 BMI result Body Mass Index 24.2 Const Other: Disheveled General: alert Orientation/consciousness: patient oriented x3 Limitations: no limitations HENMT Other: tacky mucous membranes Head: Yes normal to inspection Ears: hearing grossly normal bilaterally General nose exam: Normal external nose present Face and sinus: Yes normal facial exam Mouth: Normal oral and palatal mucosa present Throat: Yes posterior oropharynx normal Eyes General: appearance normal, both eyes and all related structures Pupils: Equal, round and reactive pupils present Neck Neck: Yes normal visual inspection Chest Chest palpation & inspection: normal inspection of the chest Resp Other: coarse breath sounds throughout tachypnea with a rate of 30 Cardio Rate: regular rate Rhythm: regular rhythm Peripheral pulses: Peripheral pulses 2+ throughout GI Inspection: Yes normal to inspection Palpation (GI): Soft to palpation and nontender Auscultation: normal bowel sounds Back/Spine/Pelvis Thoracic/Lumbar Spine: thoracic and lumbar spine normal to inspection Skin General skin exam: no rashes or lesions noted Neuro Other: diffusely weak General: patient oriented x3, moves all extremities, normal sensation to monofilament and Unable to assess gait Cranial nerves: Yes Equal, round and reactive pupils present Cognition (Neuro): normal cognition Speech: No Abnormal speech present Gait exam (Neuro): Unable to assess gait Motor exam (neuro): 5/5 motor strength present throughout Extrem Other: General: Yes normal to inspection, Yes no pedal edema and Yes no calf tenderness Results Lab Results Result Diagrams: 04/03/21 05:15 04/03/21 05:15 Lab results: Chemistry 03/31/21 03/31/21 04/01/21 21:53 21:53 00:41 Schistocytes 1+ (0-2) Sodium 123 L 126 L Potassium 4.8 4.5 Carbon Dioxide 17 L 17 L BUN 83 H 79 H Creatinine 2.51 H 2.08 H Calcium 7.8 L D 6.9 L D 04/01/21 04/01/21 03:20 08:17 Schistocytes Sodium 127 L Potassium 4.1 Carbon Dioxide 16 L BUN 74 H Creatinine 1.84 H 1.50 H Calcium 7.5 L D Hematology 03/31/21 04/01/21 21:53 03:20 WBC 11.8 H 4.8 Hgb 9.1 L 8.1 L Plt Count 30 L 23 L Urinalysis 04/01/21 01:58 Urine Color YELLOW Urine Appearance HAZY Urine pH 5.5 Ur Specific [place] 1.025 Urine Protein TRACE Urine Glucose (UA) NEG Urine Ketones NEG Urine Blood 2+ H Urine Nitrite NEG Ur Leukocyte Esterase 2+ H Urine RBC 10-14 H Urine WBC 30-49 H Ur Squamous Epith Cells 1+ Urine Studies 04/01/21 04/01/21 01:58 01:58 Urine Osmolality 344 L Urine Creatinine 77.91 Assessment and Plan (1) Acute hyponatremia: Status: Acute (2) MELITON (acute kidney injury): Status: Acute MELITON Wide diffrential diagnosis AGN vs ATN r/o Obstruction r/o aHUS ( anemia/Thrombocytopenia) Hypoperfution No rhabdo ( CPK 14) Severe hyponatremia: Will obtain urine osmolality, serum osmolality, urine chloride, creatinine, sodium. patient received about 1.6 L of fluid - normal saline in the ER; will obtain stat chemistry and adjust fluids accordingly. Sepsis in the setting of multifocal pneumonia: Chest x-ray Concern for COVID-19. Patient's rapid COVID test negative. continue IV vancomycin and Zosyn. id consulted for further recommendations. Follow-up cultures echocardiogram to rule out endocarditis given significant IV drug abuse history and concerns for sepsis. Right forearm lesion: Patient reports that chronic. Supportive care. follow-up with the general surgery/vascular surgery. Severe thrombocytopenia:/Anemia r/o Likely in the setting of sepsis. Patient currently denies any signs of bleeding. r/o aHUS Viral studies including RSV, COVID-19, rapid flu -negative so far. Will also test for HIV. Patient verbally consented. Transaminitis: Again likely in the setting of sepsis. Was obtain acute hepatitis panel and right upper quadrant ultrasound. Polysubstance abuse/ opiate abuse/cocaine abuse: addiction Medicine consult. Monitor on COWS protocol. Elevated D-dimer: Venous duplex negative. Unable to do CT chest secondary MELITON. Suggest: Urine Sodium Creatinine, Protein,Osm 2.Restrict PO water to 1.2 L per 25 hrs Repeat pNa Rate of correction not more than 0.5 mmol/L /hr or 8 -10 mmol/24 hrs Check LDH/ Hapto ANCA/C3/C4, Anti GBM Follow urine output and creatinine No indication for dialysis yet Further work up, including possible kidney biopsy , based on above Shall follow closely Thanks Procedures Date of Service Date of Service: 04/01/21
--- NOTE | 2021-04-01 10:44 | P.CDIC_ITS ---
CDI Concurrent Query Documentation Clarification: PHYSICIAN'S DOCUMENTATION REQUEST Date of Query: 04/01/21 1045 Patient Name: Vanda Ch Admit Date: 03/31/21 Dear Doctor, A review of the medical record indicates additional documentation may be needed. Please review below and update the documentation accordingly. Clinical Indicators: Risk Factors/Clinical Indicators/Treatments ED: hypoxic on room air placed on supplemental oxygen 3 liters RR 46 HR 114 Saturation 90-93% diagnosed with Pneumonia/reactive airway disease. Symptoms: ? hypoxia, coarse breath sounds, dyspnea. Clarify which of the following accurately represents the patient's respiratory status: * Acute respiratory failure * Acute respiratory distress * Hypoxia * Other (please specify) * Unable to determine Use of terms such as suspected, likely, concern for, or probable (associated with a specific diagnosis that is being evaluated, monitored, or treated as if it exists) are acceptable and can be coded in the inpatient setting, when documented at the time of discharge. Thank you, Janel Vera [facility], CDIS Extension: [phone] Please use your independent medical judgment in providing your response. THIS QUERY IS PART OF THE PERMANENT MEDICAL RECORD Provider Response: Other Other Diagnosis: see note
[2021-04-01 11:28] LABS: Lactate Dehydrogenase 250 U/L (122-220)
--- NOTE | 2021-04-01 13:19 | P.CNID_ITS ---
History of Present Illness Data of Consult Service Date: 04/01/21 Requesting physician: Polo Holt Primary Care Provider: Unknown Physician HPI Reason for consult: sepsis She presents with weakness and fatigue She has no cough and says was vaccinated for COVID. She injects cocaine and has used opioids Review of Systems Review of Systems: Yes all other systems are reviewed and are negative [facility] Past Medical History Medical History (Updated 04/01/21 @ 13:22 by Corie Penaloza MD) Bacteremia Substance abuse Family History Family history: reviewed and not pertinent Social History Social History Alcohol intake: never Patient Tobacco Use Status: Current everyday Tobacco user Use of substances other than those prescribed or required for medical reasons: Yes Substance Use Type: Crack/Cocaine and Heroin Advance Directives: No Patient : No service: No Current occupational status: unemployed Meds Allergies Allergy/AdvReac Type Severity Reaction Status Date / Time No Known Allergies Allergy Verified 05/12/20 05:11 Active Medications: Current Medications Albuterol/Ipratropium (Albuterol/Iprat 2.5/0.5mg 3 Ml Ampul.Neb) 3 ml INHALE RQ6H WHILE AWAKE [facility] Last Admin: 04/01/21 08:39 Dose: 3 ml Documented by: Albuterol/Ipratropium (Albuterol/Iprat 2.5/0.5mg 3 Ml Ampul.Neb) 3 ml INHALE RQ4H PRN PRN Reason: Shortness of Breath/Wheezing Dexamethasone (Dexamethasone 6 Mg Tablet) 6 mg PO DAILY [facility] Last Admin: 04/01/21 08:11 Dose: 6 mg Documented by: Guaifenesin (Guaifenesin 100 Mg/5 Ml Liquid) 5 ml PO Q4H PRN PRN Reason: Cough Last Admin: 04/01/21 08:37 Dose: 5 ml Documented by: Hydroxyzine HCl (Hydroxyzine Hcl 25 Mg Tablet) 25 mg PO Q6H PRN PRN Reason: Anxiety Dextrose/Sodium Chloride (D5ns) 1,000 mls @ 50 mls/hr IVCONT .Q20H [facility] Last Infusion: 04/01/21 05:58 Dose: 0 mls/hr Documented by: Piperacillin Sod/Tazobactam (Sod 2.25 gm/ Sodium Chloride) 50 mls @ 100 mls/hr IV Q8H [facility] Last Infusion: 04/01/21 09:00 Dose: Infused Documented by: Vancomycin HCl 1,250 mg/ (Sodium Chloride) 250 mls @ 166.667 mls/hr IV Q24H [facility] Melatonin (Melatonin 3 Mg Tablet) 6 mg PO BEDTIME PRN PRN Reason: Insomnia Oxycodone HCl (Oxycodone Hcl Immed Release 5 Mg Tablet) 5 mg PO Q6H PRN PRN Reason: Pain, Severe (Pain Scale 7-10) Last Admin: 04/01/21 04:58 Dose: 5 mg Documented by: Pharmacy Consult (Consult Rx Vancomycin Dosing) 1 each MISCELLANE DAILY PRN PRN Reason: Consult order Pharmacy Consult (Consult Rx Perform Med Rec) 1 each MISCELLANE ONCE PRN PRN Reason: Consult order Senna (Sennosides 8.6 Mg Tablet) 17.2 mg PO BEDTIME PRN PRN Reason: Constipation Sodium Chloride (0.9 % Sodium Chloride Flush 3 Ml Syringe) 3 ml IVFLUSH QSHIFT [facility] Last Admin: 04/01/21 08:12 Dose: 3 ml Documented by: Home Medications Medication Instructions Recorded Confirmed Last Taken Type No Known Home Meds 04/01/21 04/01/21 Unknown History Physical Exam Vital Signs: Vital Signs: Last Vital Signs Temp 97.8 F 04/01/21 10:39 Pulse 83 04/01/21 10:39 Resp 32 H 04/01/21 10:39 BP 97/39 L 04/01/21 10:39 Pulse Ox 98 04/01/21 10:39 BMI result Body Mass Index 24.2 Const: General: cooperative Eyes: General: appearance normal, both eyes and all related structures Pupils: Equal, round and reactive pupils present Resp: Effort & Inspection: normal respiratory effort Cardio: Palpation: normal PMI Rate: regular rate Rhythm: regular rhythm GI: Palpation (GI): Soft to palpation and nontender Skin: Other: right arm 6x8 cm lesion excoriated right forearm,no cellulitis Neuro: Cranial nerves: Yes Equal, round and reactive pupils present Results Labs CBC & Chem 7: 04/01/21 03:20 04/01/21 08:17 Labs: Short CBC 03/31/21 04/01/21 Range/Units 21:53 03:20 WBC 11.8 H 4.8 (4.8-10.8) X10*3/uL Hgb 9.1 L 8.1 L (12.0-16.0) g/dl Hct 26.4 L 24.0 L (37.0-47.0) % Plt Count 30 L 23 L (160-400) X10*3/uL BMP 03/31/21 04/01/21 04/01/21 21:53 00:41 03:20 Sodium 123 L 126 L 127 L Potassium 4.8 4.5 4.1 Chloride 89 L 98 98 Carbon Dioxide 17 L 17 L 16 L BUN 83 H 79 H 74 H Creatinine 2.51 H 2.08 H 1.84 H Calcium 7.8 L D 6.9 L D 7.5 L D 04/01/21 08:17 Sodium Potassium Chloride Carbon Dioxide BUN Creatinine 1.50 H Calcium Cardiac Enzymes 03/31/21 Range/Units 21:53 Total Creatine Kinase 14 L (26-140) U/L Liver Function 03/31/21 Range/Units 21:53 Total Bilirubin 0.9 (0.0-1.0) mg/dL Direct Bilirubin 0.7 H (0.0-0.5) mg/dL AST 142 H (5-31) U/L ALT 65 H (0-31) U/L Alkaline Phosphatase 91 D (39-117) U/L Albumin 2.4 L D (3.5-5.0) g/dL Urine 04/01/21 Range/Units 01:58 Urine Color YELLOW Urine Appearance HAZY Urine pH 5.5 (5.0-8.0) Ur Specific [place] 1.025 (1.005-1.025) Urine Protein TRACE (NEG-TRACE) MG/DL Urine Glucose (UA) NEG (NEG) MG/DL Microbiology Microbiology Results: Microbiology 03/31/21 21:53 Blood - Venous Blood Culture - Preliminary Prelim: GPC Gram Stain only 03/31/21 21:53 Blood - Venous Blood Culture - Preliminary Prelim: GPC Gram Stain only Assessment and Plan (1) Bacteremia: Status: Acute She has gram positive cocci blood with renal failure,concern over endocarditis. She shoots up and also has long standing chronic right arm wound She is homeless and HIV negative and Hepatitis C positive Thrombocytopenia may be early DIC (2) Hypoxia: Status: Acute (3) Thrombocytopenia: Status: Acute Would continue Vancomycin Check echo Wound Care address wound
[2021-04-01] MEDS: methADONE HCl 20 MG/2 ML ORAL.CONC PO (14:10)
--- NOTE | 2021-04-01 14:51 | HO.PM.IMPN ---
Subjective Subjective Date of Service: 04/01/21 Interval History: Being followed for severe sepsis with multifocal pneumonia, hyponatremia, hypoxic respiratory failure, acute kidney injury hyponatremia, patient feels better since admission complaining of less shortness of breath, denies fever chills, eating breakfast. Review of Systems General no headache, no dizziness, no fever chills. CVS no chest pain, no palpitation. Respiratory mild shortness of breath Gastrointestinal no nausea, no vomiting, no abdominal pain Review of Systems: Yes all other systems are reviewed and are negative Physical Exam Vital Signs: Vital Signs: Last Vital Signs Temp 97.8 F 04/01/21 13:56 Pulse 81 04/01/21 13:56 Resp 18 04/01/21 13:56 BP 90/40 L 04/01/21 13:56 Pulse Ox 97 04/01/21 13:56 BMI result Body Mass Index 24.2 General awake alert x3, no acute distress. Neck no JVD. CVS regular rate rhythm, Respiratory lungs clear to auscultation, no respiratory distress, no wheeze, no rhonchi. Gastrointestinal abdomen soft, nontender, bowel sounds audible, no guarding , no rigidity. Extremities no edema. Neuro nonfocal Right forearm large area of ulcer, with raised margins , no drainage Objective Data Active Medications Albuterol/Ipratropium (Albuterol/Iprat 2.5/0.5mg 3 Ml Ampul.Neb) 3 ml INHALE RQ6H WHILE AWAKE [facility] Last Admin: 04/01/21 13:39 Dose: Not Given Documented by: PAT Non-Admin Reason: Patient Refused Albuterol/Ipratropium (Albuterol/Iprat 2.5/0.5mg 3 Ml Ampul.Neb) 3 ml INHALE RQ4H PRN PRN Reason: Shortness of Breath/Wheezing Dexamethasone (Dexamethasone 6 Mg Tablet) 6 mg PO DAILY [facility] Last Admin: 04/01/21 08:11 Dose: 6 mg Documented by: FRANCISCA Guaifenesin (Guaifenesin 100 Mg/5 Ml Liquid) 5 ml PO Q4H PRN PRN Reason: Cough Last Admin: 04/01/21 08:37 Dose: 5 ml Documented by: FRANCISCA Hydroxyzine HCl (Hydroxyzine Hcl 25 Mg Tablet) 25 mg PO Q6H PRN PRN Reason: Anxiety Dextrose/Sodium Chloride (D5ns) 1,000 mls @ 50 mls/hr IVCONT .Q20H [facility] Last Infusion: 04/01/21 05:58 Dose: 0 mls/hr Documented by: CHLOE Piperacillin Sod/Tazobactam (Sod 2.25 gm/ Sodium Chloride) 50 mls @ 100 mls/hr IV Q8H [facility] Last Infusion: 04/01/21 09:00 Dose: 0 mls/hr Documented by: FRANCISCA Vancomycin HCl 1,250 mg/ (Sodium Chloride) 250 mls @ 166.667 mls/hr IV Q24H [facility] Melatonin (Melatonin 3 Mg Tablet) 6 mg PO BEDTIME PRN PRN Reason: Insomnia Oxycodone HCl (Oxycodone Hcl Immed Release 5 Mg Tablet) 5 mg PO Q6H PRN PRN Reason: Pain, Severe (Pain Scale 7-10) Last Admin: 04/01/21 04:58 Dose: 5 mg Documented by: AGUSTIN Pharmacy Consult (Consult Rx Vancomycin Dosing) 1 each MISCELLANE DAILY PRN PRN Reason: Consult order Pharmacy Consult (Consult Rx Perform Med Rec) 1 each MISCELLANE ONCE PRN PRN Reason: Consult order Senna (Sennosides 8.6 Mg Tablet) 17.2 mg PO BEDTIME PRN PRN Reason: Constipation Sodium Chloride (0.9 % Sodium Chloride Flush 3 Ml Syringe) 3 ml IVFLUSH QSHIFT [facility] Last Admin: 04/01/21 08:12 Dose: 3 ml Documented by: FRANCISCA Labs CBC & Chem 7: 04/01/21 03:20 04/01/21 08:17 Labs: Laboratory Results - last 24 hr 03/31/21 03/31/21 03/31/21 21:30 21:53 21:53 MCV 72.3 L MCH 24.9 L MCHC 34.5 RDW 15.2 Plt Count 30 L MPV TNP Immature Gran % (Auto) Cancelled Neut % (Auto) Cancelled Lymph % (Auto) Cancelled [place] % (Auto) Cancelled Eos % (Auto) Cancelled Baso % (Auto) Cancelled Lymph # (Auto) Cancelled [place] # (Auto) Cancelled Eos # (Auto) Cancelled Baso # (Auto) Cancelled Abs Immat Gran (auto) Cancelled Absolute Neuts (auto) Cancelled Absolute Nucleated RBC 0.000 Nucleated RBC % (auto) 0.0 Neutrophils % (Manual) 71 Band Neutrophils % 4 Lymphocytes % (Manual) 13 L Monocytes % (Manual) 12 H Abs Neuts (Manual) 8.9 H Lymphocytes # (Manual) 1.5 Monocytes # (Manual) 1.4 H Toxic Vacuolation PRESENT Platelet Estimate DECREASED Plt Morphology Comment NORMAL RBC Morphology NOTED [place] Cells 2+ (3-5) Acanthocytes (Spur) 2+ (3-5) Schistocytes 1+ (0-2) Smear Path Review SEE NOTE PT INR D-Dimer High Sensitivty Anion Gap 22 H Estim Creat Clear Calc 26.2 Estimated GFR 24 Random Glucose 92 Osmolality Lactic Acid Lactic Acid Fup @ 2Hr Lactic Acid Fup @ 4Hr Calcium 7.8 L D Magnesium 2.0 Total Bilirubin 0.9 Direct Bilirubin 0.7 H AST 142 H ALT 65 H Alkaline Phosphatase 91 D Lactate Dehydrogenase Total Creatine Kinase 14 L Troponin I High Sens Total Protein 6.6 Albumin 2.4 L D Urine Color Urine Appearance Urine pH Ur Specific [place] Urine Protein Urine Glucose (UA) Urine Ketones Urine Blood Urine Nitrite Ur Leukocyte Esterase Urine RBC Urine WBC Ur Squamous Epith Cells Urine Bacteria Urine Mucus Urine Osmolality Ur Random Sodium Ur Random Chloride Urine Creatinine Urine Test Urine Opiates Screen Urine Fentanyl Screen Ur Barbiturates Screen Ur Phencyclidine Scrn Ur Amphetamines Screen U Benzodiazepines Scrn Urine Cocaine Screen U Marijuana (THC) Screen Ethyl Alcohol COVID-19 ([facility]) COVID-19 Clin Com Hepatitis A IgM Ab Hep Bs Antigen Hep Bs Antibody Hep B Core Total Ab Hepatitis C Ab (EIA) HIV 1&2 Ab/P24 Ag 4thGn Influenza Type A (PCR) NEGATIVE Influenza Type B (PCR) NEGATIVE RSV RNA Qual (PCR) NEGATIVE SARS-CoV-2 RNA (RT-PCR) NEGATIVE 03/31/21 03/31/21 03/31/21 21:53 21:53 21:53 MCV MCH MCHC RDW Plt Count MPV Immature Gran % (Auto) Neut % (Auto) Lymph % (Auto) [place] % (Auto) Eos % (Auto) Baso % (Auto) Lymph # (Auto) [place] # (Auto) Eos # (Auto) Baso # (Auto) Abs Immat Gran (auto) Absolute Neuts (auto) Absolute Nucleated RBC Nucleated RBC % (auto) Neutrophils % (Manual) Band Neutrophils % Lymphocytes % (Manual) Monocytes % (Manual) Abs Neuts (Manual) Lymphocytes # (Manual) Monocytes # (Manual) Toxic Vacuolation Platelet Estimate Plt Morphology Comment RBC Morphology [place] Cells Acanthocytes (Spur) Schistocytes Smear Path Review PT 18.9 H INR 1.6 H D-Dimer High Sensitivty 3263 Anion Gap Estim Creat Clear Calc Estimated GFR Random Glucose Osmolality Lactic Acid 3.2 H* Lactic Acid Fup @ 2Hr Lactic Acid Fup @ 4Hr Calcium Magnesium Total Bilirubin Direct Bilirubin AST ALT Alkaline Phosphatase Lactate Dehydrogenase Total Creatine Kinase Troponin I High Sens < 3.5 Total Protein Albumin Urine Color Urine Appearance Urine pH Ur Specific [place] Urine Protein Urine Glucose (UA) Urine Ketones Urine Blood Urine Nitrite Ur Leukocyte Esterase Urine RBC Urine WBC Ur Squamous Epith Cells Urine Bacteria Urine Mucus Urine Osmolality Ur Random Sodium Ur Random Chloride Urine Creatinine Urine Test Urine Opiates Screen Urine Fentanyl Screen Ur Barbiturates Screen Ur Phencyclidine Scrn Ur Amphetamines Screen U Benzodiazepines Scrn Urine Cocaine Screen U Marijuana (THC) Screen Ethyl Alcohol COVID-19 ([facility]) COVID-19 Clin Com Hepatitis A IgM Ab Hep Bs Antigen Hep Bs Antibody Hep B Core Total Ab Hepatitis C Ab (EIA) HIV 1&2 Ab/P24 Ag 4thGn Influenza Type A (PCR) Influenza Type B (PCR) RSV RNA Qual (PCR) SARS-CoV-2 RNA (RT-PCR) 03/31/21 03/31/21 03/31/21 21:53 21:53 22:21 MCV MCH MCHC RDW Plt Count MPV Immature Gran % (Auto) Neut % (Auto) Lymph % (Auto) [place] % (Auto) Eos % (Auto) Baso % (Auto) Lymph # (Auto) [place] # (Auto) Eos # (Auto) Baso # (Auto) Abs Immat Gran (auto) Absolute Neuts (auto) Absolute Nucleated RBC Nucleated RBC % (auto) Neutrophils % (Manual) Band Neutrophils % Lymphocytes % (Manual) Monocytes % (Manual) Abs Neuts (Manual) Lymphocytes # (Manual) Monocytes # (Manual) Toxic Vacuolation Platelet Estimate Plt Morphology Comment RBC Morphology [place] Cells Acanthocytes (Spur) Schistocytes Smear Path Review PT INR D-Dimer High Sensitivty Anion Gap Estim Creat Clear Calc Estimated GFR Random Glucose Osmolality 282 Lactic Acid Lactic Acid Fup @ 2Hr Lactic Acid Fup @ 4Hr Calcium Magnesium Total Bilirubin Direct Bilirubin AST ALT Alkaline Phosphatase Lactate Dehydrogenase Total Creatine Kinase Troponin I High Sens Total Protein Albumin Urine Color Urine Appearance Urine pH Ur Specific [place] Urine Protein Urine Glucose (UA) Urine Ketones Urine Blood Urine Nitrite Ur Leukocyte Esterase Urine RBC Urine WBC Ur Squamous Epith Cells Urine Bacteria Urine Mucus Urine Osmolality Ur Random Sodium Ur Random Chloride Urine Creatinine Urine Test Urine Opiates Screen Urine Fentanyl Screen Ur Barbiturates Screen Ur Phencyclidine Scrn Ur Amphetamines Screen U Benzodiazepines Scrn Urine Cocaine Screen U Marijuana (THC) Screen Ethyl Alcohol < 10 COVID-19 ([facility]) Negative COVID-19 Clin Com See Note Hepatitis A IgM Ab Hep Bs Antigen Hep Bs Antibody Hep B Core Total Ab Hepatitis C Ab (EIA) HIV 1&2 Ab/P24 Ag 4thGn Influenza Type A (PCR) Influenza Type B (PCR) RSV RNA Qual (PCR) SARS-CoV-2 RNA (RT-PCR) 04/01/21 04/01/21 04/01/21 00:41 00:41 00:41 MCV MCH MCHC RDW Plt Count MPV Immature Gran % (Auto) Neut % (Auto) Lymph % (Auto) [place] % (Auto) Eos % (Auto) Baso % (Auto) Lymph # (Auto) [place] # (Auto) Eos # (Auto) Baso # (Auto) Abs Immat Gran (auto) Absolute Neuts (auto) Absolute Nucleated RBC Nucleated RBC % (auto) Neutrophils % (Manual) Band Neutrophils % Lymphocytes % (Manual) Monocytes % (Manual) Abs Neuts (Manual) Lymphocytes # (Manual) Monocytes # (Manual) Toxic Vacuolation Platelet Estimate Plt Morphology Comment RBC Morphology [place] Cells Acanthocytes (Spur) Schistocytes Smear Path Review PT INR D-Dimer High Sensitivty Anion Gap 16 Estim Creat Clear Calc 31.6 Estimated GFR 30 Random Glucose 98 Osmolality Lactic Acid Lactic Acid Fup @ 2Hr 2.1 H* Lactic Acid Fup @ 4Hr Calcium 6.9 L D Magnesium Total Bilirubin Direct Bilirubin AST ALT Alkaline Phosphatase Lactate Dehydrogenase Total Creatine Kinase Troponin I High Sens Total Protein Albumin Urine Color Urine Appearance Urine pH Ur Specific [place] Urine Protein Urine Glucose (UA) Urine Ketones Urine Blood Urine Nitrite Ur Leukocyte Esterase Urine RBC Urine WBC Ur Squamous Epith Cells Urine Bacteria Urine Mucus Urine Osmolality Ur Random Sodium Ur Random Chloride Urine Creatinine Urine Test Urine Opiates Screen Urine Fentanyl Screen Ur Barbiturates Screen Ur Phencyclidine Scrn Ur Amphetamines Screen U Benzodiazepines Scrn Urine Cocaine Screen U Marijuana (THC) Screen Ethyl Alcohol COVID-19 ([facility]) COVID-19 Clin Com Hepatitis A IgM Ab Nonreactive Hep Bs Antigen Negative Hep Bs Antibody REACTIVE Hep B Core Total Ab Nonreactive Hepatitis C Ab (EIA) Reactive H HIV 1&2 Ab/P24 Ag 4thGn Nonreactive Influenza Type A (PCR) Influenza Type B (PCR) RSV RNA Qual (PCR) SARS-CoV-2 RNA (RT-PCR) 04/01/21 04/01/21 04/01/21 00:41 01:58 01:58 MCV MCH MCHC RDW Plt Count MPV Immature Gran % (Auto) Neut % (Auto) Lymph % (Auto) [place] % (Auto) Eos % (Auto) Baso % (Auto) Lymph # (Auto) [place] # (Auto) Eos # (Auto) Baso # (Auto) Abs Immat Gran (auto) Absolute Neuts (auto) Absolute Nucleated RBC Nucleated RBC % (auto) Neutrophils % (Manual) Band Neutrophils % Lymphocytes % (Manual) Monocytes % (Manual) Abs Neuts (Manual) Lymphocytes # (Manual) Monocytes # (Manual) Toxic Vacuolation Platelet Estimate Plt Morphology Comment RBC Morphology [place] Cells Acanthocytes (Spur) Schistocytes Smear Path Review PT INR D-Dimer High Sensitivty Anion Gap Estim Creat Clear Calc Estimated GFR Random Glucose Osmolality 286 Lactic Acid Lactic Acid Fup @ 2Hr Lactic Acid Fup @ 4Hr Calcium Magnesium Total Bilirubin Direct Bilirubin AST ALT Alkaline Phosphatase Lactate Dehydrogenase Total Creatine Kinase Troponin I High Sens Total Protein Albumin Urine Color YELLOW Urine Appearance HAZY Urine pH 5.5 Ur Specific [place] 1.025 Urine Protein TRACE Urine Glucose (UA) NEG Urine Ketones NEG Urine Blood 2+ H Urine Nitrite NEG Ur Leukocyte Esterase 2+ H Urine RBC 10-14 H Urine WBC 30-49 H Ur Squamous Epith Cells 1+ Urine Bacteria 2+ Urine Mucus 2+ Urine Osmolality Ur Random Sodium Ur Random Chloride Urine Creatinine Urine Test Urine Opiates Screen POSITIVE H Urine Fentanyl Screen POSITIVE H Ur Barbiturates Screen Not Detected Ur Phencyclidine Scrn POSITIVE H Ur Amphetamines Screen Not Detected U Benzodiazepines Scrn Not Detected Urine Cocaine Screen POSITIVE H U Marijuana (THC) Screen Not Detected Ethyl Alcohol COVID-19 ([facility]) COVID-19 Clin Com Hepatitis A IgM Ab Hep Bs Antigen Hep Bs Antibody Hep B Core Total Ab Hepatitis C Ab (EIA) HIV 1&2 Ab/P24 Ag 4thGn Influenza Type A (PCR) Influenza Type B (PCR) RSV RNA Qual (PCR) SARS-CoV-2 RNA (RT-PCR) 04/01/21 04/01/21 04/01/21 01:58 01:58 01:58 MCV MCH MCHC RDW Plt Count MPV Immature Gran % (Auto) Neut % (Auto) Lymph % (Auto) [place] % (Auto) Eos % (Auto) Baso % (Auto) Lymph # (Auto) [place] # (Auto) Eos # (Auto) Baso # (Auto) Abs Immat Gran (auto) Absolute Neuts (auto) Absolute Nucleated RBC Nucleated RBC % (auto) Neutrophils % (Manual) Band Neutrophils % Lymphocytes % (Manual) Monocytes % (Manual) Abs Neuts (Manual) Lymphocytes # (Manual) Monocytes # (Manual) Toxic Vacuolation Platelet Estimate Plt Morphology Comment RBC Morphology [place] Cells Acanthocytes (Spur) Schistocytes Smear Path Review PT INR D-Dimer High Sensitivty Anion Gap Estim Creat Clear Calc Estimated GFR Random Glucose Osmolality Lactic Acid Lactic Acid Fup @ 2Hr Lactic Acid Fup @ 4Hr Calcium Magnesium Total Bilirubin Direct Bilirubin AST ALT Alkaline Phosphatase Lactate Dehydrogenase Total Creatine Kinase Troponin I High Sens Total Protein Albumin Urine Color Urine Appearance Urine pH Ur Specific [place] Urine Protein Urine Glucose (UA) Urine Ketones Urine Blood Urine Nitrite Ur Leukocyte Esterase Urine RBC Urine WBC Ur Squamous Epith Cells Urine Bacteria Urine Mucus Urine Osmolality 344 L Ur Random Sodium 37.0 Ur Random Chloride 20.0 Urine Creatinine 77.91 Urine Test NEGATIVE Urine Opiates Screen Urine Fentanyl Screen Ur Barbiturates Screen Ur Phencyclidine Scrn Ur Amphetamines Screen U Benzodiazepines Scrn Urine Cocaine Screen U Marijuana (THC) Screen Ethyl Alcohol COVID-19 ([facility]) COVID-19 Clin Com Hepatitis A IgM Ab Hep Bs Antigen Hep Bs Antibody Hep B Core Total Ab Hepatitis C Ab (EIA) HIV 1&2 Ab/P24 Ag 4thGn Influenza Type A (PCR) Influenza Type B (PCR) RSV RNA Qual (PCR) SARS-CoV-2 RNA (RT-PCR) 04/01/21 04/01/21 04/01/21 03:20 03:20 03:20 MCV 73.2 L MCH 24.7 L MCHC 33.8 RDW 15.0 Plt Count 23 L MPV Not Reportable Immature Gran % (Auto) 2.5 H Neut % (Auto) 71.7 Lymph % (Auto) 14.6 L [place] % (Auto) 10.8 Eos % (Auto) 0.2 Baso % (Auto) 0.2 Lymph # (Auto) 0.7 L [place] # (Auto) 0.5 Eos # (Auto) 0.0 Baso # (Auto) 0.0 Abs Immat Gran (auto) 0.12 H Absolute Neuts (auto) 3.5 Absolute Nucleated RBC 0.000 Nucleated RBC % (auto) 0.0 Neutrophils % (Manual) Band Neutrophils % Lymphocytes % (Manual) Monocytes % (Manual) Abs Neuts (Manual) Lymphocytes # (Manual) Monocytes # (Manual) Toxic Vacuolation Platelet Estimate Plt Morphology Comment RBC Morphology [place] Cells Acanthocytes (Spur) Schistocytes Smear Path Review PT INR D-Dimer High Sensitivty Anion Gap 17 Estim Creat Clear Calc 35.8 Estimated GFR 34 Random Glucose 142 H Osmolality Lactic Acid Lactic Acid Fup @ 2Hr Lactic Acid Fup @ 4Hr 1.9 Calcium 7.5 L D Magnesium Total Bilirubin Direct Bilirubin AST ALT Alkaline Phosphatase Lactate Dehydrogenase Total Creatine Kinase Troponin I High Sens Total Protein Albumin Urine Color Urine Appearance Urine pH Ur Specific [place] Urine Protein Urine Glucose (UA) Urine Ketones Urine Blood Urine Nitrite Ur Leukocyte Esterase Urine RBC Urine WBC Ur Squamous Epith Cells Urine Bacteria Urine Mucus Urine Osmolality Ur Random Sodium Ur Random Chloride Urine Creatinine Urine Test Urine Opiates Screen Urine Fentanyl Screen Ur Barbiturates Screen Ur Phencyclidine Scrn Ur Amphetamines Screen U Benzodiazepines Scrn Urine Cocaine Screen U Marijuana (THC) Screen Ethyl Alcohol COVID-19 ([facility]) COVID-19 Clin Com Hepatitis A IgM Ab Hep Bs Antigen Hep Bs Antibody Hep B Core Total Ab Hepatitis C Ab (EIA) HIV 1&2 Ab/P24 Ag 4thGn Influenza Type A (PCR) Influenza Type B (PCR) RSV RNA Qual (PCR) SARS-CoV-2 RNA (RT-PCR) 04/01/21 04/01/21 04/01/21 06:39 08:17 08:17 MCV MCH MCHC RDW Plt Count MPV Immature Gran % (Auto) Neut % (Auto) Lymph % (Auto) [place] % (Auto) Eos % (Auto) Baso % (Auto) Lymph # (Auto) [place] # (Auto) Eos # (Auto) Baso # (Auto) Abs Immat Gran (auto) Absolute Neuts (auto) Absolute Nucleated RBC Nucleated RBC % (auto) Neutrophils % (Manual) Band Neutrophils % Lymphocytes % (Manual) Monocytes % (Manual) Abs Neuts (Manual) Lymphocytes # (Manual) Monocytes # (Manual) Toxic Vacuolation Platelet Estimate Plt Morphology Comment RBC Morphology [place] Cells Acanthocytes (Spur) Schistocytes Smear Path Review PT INR D-Dimer High Sensitivty Anion Gap Estim Creat Clear Calc 43.9 Estimated GFR 43 Random Glucose Osmolality Lactic Acid 2.1 H* Lactic Acid Fup @ 2Hr 1.8 Lactic Acid Fup @ 4Hr Calcium Magnesium Total Bilirubin Direct Bilirubin AST ALT Alkaline Phosphatase Lactate Dehydrogenase Total Creatine Kinase Troponin I High Sens Total Protein Albumin Urine Color Urine Appearance Urine pH Ur Specific [place] Urine Protein Urine Glucose (UA) Urine Ketones Urine Blood Urine Nitrite Ur Leukocyte Esterase Urine RBC Urine WBC Ur Squamous Epith Cells Urine Bacteria Urine Mucus Urine Osmolality Ur Random Sodium Ur Random Chloride Urine Creatinine Urine Test Urine Opiates Screen Urine Fentanyl Screen Ur Barbiturates Screen Ur Phencyclidine Scrn Ur Amphetamines Screen U Benzodiazepines Scrn Urine Cocaine Screen U Marijuana (THC) Screen Ethyl Alcohol COVID-19 ([facility]) COVID-19 Clin Com Hepatitis A IgM Ab Hep Bs Antigen Hep Bs Antibody Hep B Core Total Ab Hepatitis C Ab (EIA) HIV 1&2 Ab/P24 Ag 4thGn Influenza Type A (PCR) Influenza Type B (PCR) RSV RNA Qual (PCR) SARS-CoV-2 RNA (RT-PCR) 04/01/21 10:54 MCV MCH MCHC RDW Plt Count MPV Immature Gran % (Auto) Neut % (Auto) Lymph % (Auto) [place] % (Auto) Eos % (Auto) Baso % (Auto) Lymph # (Auto) [place] # (Auto) Eos # (Auto) Baso # (Auto) Abs Immat Gran (auto) Absolute Neuts (auto) Absolute Nucleated RBC Nucleated RBC % (auto) Neutrophils % (Manual) Band Neutrophils % Lymphocytes % (Manual) Monocytes % (Manual) Abs Neuts (Manual) Lymphocytes # (Manual) Monocytes # (Manual) Toxic Vacuolation Platelet Estimate Plt Morphology Comment RBC Morphology [place] Cells Acanthocytes (Spur) Schistocytes Smear Path Review PT INR D-Dimer High Sensitivty Anion Gap Estim Creat Clear Calc Estimated GFR Random Glucose Osmolality Lactic Acid Lactic Acid Fup @ 2Hr Lactic Acid Fup @ 4Hr Calcium Magnesium Total Bilirubin Direct Bilirubin AST ALT Alkaline Phosphatase Lactate Dehydrogenase 250 H Total Creatine Kinase Troponin I High Sens Total Protein Albumin Urine Color Urine Appearance Urine pH Ur Specific [place] Urine Protein Urine Glucose (UA) Urine Ketones Urine Blood Urine Nitrite Ur Leukocyte Esterase Urine RBC Urine WBC Ur Squamous Epith Cells Urine Bacteria Urine Mucus Urine Osmolality Ur Random Sodium Ur Random Chloride Urine Creatinine Urine Test Urine Opiates Screen Urine Fentanyl Screen Ur Barbiturates Screen Ur Phencyclidine Scrn Ur Amphetamines Screen U Benzodiazepines Scrn Urine Cocaine Screen U Marijuana (THC) Screen Ethyl Alcohol COVID-19 ([facility]) COVID-19 Clin Com Hepatitis A IgM Ab Hep Bs Antigen Hep Bs Antibody Hep B Core Total Ab Hepatitis C Ab (EIA) HIV 1&2 Ab/P24 Ag 4thGn Influenza Type A (PCR) Influenza Type B (PCR) RSV RNA Qual (PCR) SARS-CoV-2 RNA (RT-PCR) Microbiology Microbiology Results: Microbiology 03/31/21 21:53 Blood Culture - Preliminary Blood - Venous Prelim: GPC Gram Stain only 03/31/21 21:53 Blood Culture - Preliminary Blood - Venous Prelim: GPC Gram Stain only Assessment and Plan (1) Bacteremia: Status: Acute (2) Acute hyponatremia: Status: Acute (3) MELITON (acute kidney injury): Status: Acute (4) Hypoxia: Status: Acute (5) Pneumonia: Status: Acute (6) Leukocytosis: Status: Acute (7) Thrombocytopenia: Status: Acute (8) Anemia: Status: Acute (9) Transaminitis: Status: Acute (10) Acute respiratory failure with hypoxia: Status: Acute Assessment and Plan: 25-year-old female with a past medical history of right forearm cellulitis /open wound; history of IV drug abuse -abuses IV heroin and IV cocaine; presented to the hospital today with a chief complaint of shortness of breath. ?noted to have following conditions Severe sepsis with Gram-positive bacteremia, multifocal pneumonia/UTI Blood cultures time 2 growing Gram-positive cocci Sepsis Urine culture pending COVID-19 negative. No fevers, WBC and lactic acid normalized continue IV vancomycin and Zosyn day 2 id agreed with above treatment will check workup for DIC Follow echocardiogram? to rule out endocarditis given significant IV drug abuse history Acute hypoxic respiratory failure Due to pneumonia/hyperreactive airway disease Continue DuoNeb standing and p.r.n. continue IV antibiotic as above Right forearm lesion:? As per patient is chronic at site of prior IV drug use, has not seek medical attention Will obtain wound consultation? Severe thrombocytopenia:? Likely in the setting of sepsis and hepatitis-C Viral studies including RSV, COVID-19, rapid flu -and HIV negative Consult Hematology Severe hyponatremia:? Likely in setting of low solute state. Normal serum osmolality, low urine osmolality, sodium improved from 123-127, Will restrict by mouth fluid to 1.2 L Goal of correction 8-10 millimole per 24 hours Follow BMP at a.m., being followed by Nephrology MELITON:? Creatinine trending down from 2.5 to 1.5 continue IV fluid,Avoid nephrotoxins. Further workup as per Nephrology Transaminitis:? Likely due to sepsis and hepatitis C Abdominal ultrasound showed enlarged liver Polysubstance abuse/ opiate abuse/cocaine abuse: ? addiction Medicine consult, started on methadone,monitor on COWS protocol. Elevated D-dimer:? Venous duplex negative V/Q scan shows intermediate probability with wide differential including PE/pneumonitis Will dc Lovenox, since significantly low platelet and V/Q not high probability, follow echocardiogram for right heart strain and once renal function improved will check V/Q/scan DVT prophylaxis:? Compression boots Code status:? Full code Quality Stroke Does the patient have a stroke diagnosis?: No VTE Prior VTE?: No VTE Risk Level:: Medical - moderate - high VTE Device Contraindication: Treatment Not Indicated VTE Drug Contraindication: N/A - Med Ordered
--- NOTE | 2021-04-01 15:07 | MHC.RECOVRN ---
Spoke with pt regarding methadone linkage to [facility]. Pt does not have necessary ID, however, [facility] has a copy. MP obtained and t/w reached out to [facility], awaiting call back.
[2021-04-01] MEDS: hydrOXYzine HCL 25 MG TABLET PO (15:50)
--- NOTE | 2021-04-01 15:56 | PC.NURSE ---
Patient awake and alert, laying on stretcher, restless. c/o chest pain and anxiety, reports having restless legs. Medicated w/ prn medications. Large scabbed over wound on right forearm, patient reports it has been there for a while and r/t to IV drug use.
--- NOTE | 2021-04-01 16:27 | P.CNHO_ITS ---
Subjective - Subjective Chief complaint: Difficulty breathing Patient: new to practice Consult date: 04/01/21 Requesting Physician: Dr. Holt Primary Care Provider: Unknown Physician HPI - Consult Narrative Reason for consult: thrombocytopenia Narrative: Vanda Ch is a 25 year old woman who has been admitted on 03/31/2021 for sepsis, multifocal pneumonia. She has a history of chronic IV drug abuse, she came in complaining of shortness of breath, wheezing and pleuritic chest pain. Chest x-ray showed multifocal pneumonia, her rapid COVID test was negative. She was found to be thrombocytopenic, had low sodium and elevated kidney functions. Patient received IV fluids and has been started on broad-spectrum IV ant ibiotics. Her D-dimer was elevated, above 3000. She is a poor historian. She denies any pain in her legs but says that she has pain in on the sides of both her thighs. She denies hematuria, melena or hematochezia. She says occasionally she has been coughing up blood. She does not know this any family history of thrombosis. Review of Systems - Constitutional Reports as per HPI - Neurologic Reports no additional neurologic complaints, Denies abnormal speech, Denies dizziness, Denies headache(s), Denies numbness, Denies tingling, Reports weakness PMFSH Medical History: Medical History (Last Updated 04/01/21 @ 13:22 by Corie Penaloza MD) Bacteremia Substance abuse Family history: reviewed and not pertinent Social History: Social History (Last Reviewed 04/01/21 @ 13:21 by Corie Penaloza MD) Living Situation History: Household Members: None Housing: Other Housing Other:: homeless but states staying with friends Do you presently have visiting nurse or other home services: No Alcohol History: Unable to assess alcohol history related to: Unable to respond Unable to assess alcohol history related to: Refusing to respond Alcohol intake: never Tobacco History: Patient Tobacco Use Status: Current everyday Tobacco Substance Use History: Substance Use Type: Crack/Cocaine Substance Use Type: Heroin Substance Use Type: IV Drugs Substance Use Type: Methamphetamine Occupation Assessmet: service: No Current occupational status: unemployed Home Medications and Allergies Current Medications: Current Medications Albuterol/Ipratropium (Albuterol/Iprat 2.5/0.5mg 3 Ml Ampul.Neb) 3 ml INHALE RQ6H WHILE AWAKE CORAZON Last Admin: 04/01/21 13:39 Dose: Not Given Documented by: Albuterol/Ipratropium (Albuterol/Iprat 2.5/0.5mg 3 Ml Ampul.Neb) 3 ml INHALE RQ4H PRN PRN Reason: Shortness of Breath/Wheezing Dexamethasone (Dexamethasone 6 Mg Tablet) 6 mg PO DAILY [facility] Last Admin: 04/01/21 08:11 Dose: 6 mg Documented by: Guaifenesin (Guaifenesin 100 Mg/5 Ml Liquid) 5 ml PO Q4H PRN PRN Reason: Cough Last Admin: 04/01/21 08:37 Dose: 5 ml Documented by: Hydroxyzine HCl (Hydroxyzine Hcl 25 Mg Tablet) 25 mg PO Q6H PRN PRN Reason: Anxiety Last Admin: 04/01/21 15:50 Dose: 25 mg Documented by: Dextrose/Sodium Chloride (D5ns) 1,000 mls @ 50 mls/hr IVCONT .Q20H [facility] Last Infusion: 04/01/21 05:58 Dose: 0 mls/hr Documented by: Piperacillin Sod/Tazobactam (Sod 2.25 gm/ Sodium Chloride) 50 mls @ 100 mls/hr IV Q8H [facility] Last Infusion: 04/01/21 09:00 Dose: Infused Documented by: Vancomycin HCl 1,250 mg/ (Sodium Chloride) 250 mls @ 166.667 mls/hr IV Q24H [facility] Melatonin (Melatonin 3 Mg Tablet) 6 mg PO BEDTIME PRN PRN Reason: Insomnia Oxycodone HCl (Oxycodone Hcl Immed Release 5 Mg Tablet) 5 mg PO Q6H PRN PRN Reason: Pain, Severe (Pain Scale 7-10) Last Admin: 04/01/21 15:50 Dose: 5 mg Documented by: Pharmacy Consult (Consult Rx Vancomycin Dosing) 1 each MISCELLANE DAILY PRN PRN Reason: Consult order Pharmacy Consult (Consult Rx Perform Med Rec) 1 each MISCELLANE ONCE PRN PRN Reason: Consult order Senna (Sennosides 8.6 Mg Tablet) 17.2 mg PO BEDTIME PRN PRN Reason: Constipation Sodium Chloride (0.9 % Sodium Chloride Flush 3 Ml Syringe) 3 ml IVFLUSH QSHIFT [facility] Last Admin: 04/01/21 15:51 Dose: 3 ml Documented by: Home Medications Medication Instructions Recorded Confirmed Type No Known Home Meds 04/01/21 04/01/21 History Allergies Allergy/AdvReac Type Severity Reaction Status Date / Time No Known Allergies Allergy Verified 05/12/20 05:11 Physical Exam Vital signs: Vital Signs Temp 97.8 F 04/01/21 13:56 Pulse 91 04/01/21 15:53 Resp 26 H 04/01/21 15:53 BP 104/58 L 04/01/21 15:53 Pulse Ox 97 04/01/21 13:56 Intake & Output 03/31/21 04/01/21 04/01/21 18:59 06:59 18:59 Intake Total 2239.597 / 2239.597 1050 / 1050 Balance 2239.597 / 2239.597 1050 / 1050 Intake: Intake, IV Amount 2239.597 / 2239.597 1050 / 1050 0.9 % Sodium Chloride 1,000 ml 1632.93 / 1632.93 1000 / 1000 @ 500 mls/hr IV .Q2H [facility] Rx#: [id number] Piperacillin Sodium/Tazobactam 50 / 50 2.25 gm In 0.9 % Sodium Chloride 50 ml @ 100 mls/hr IV Q8H [facility] Rx#:[id number] Piperacillin Sodium/Tazobactam 50 / 50 3.375 gm In 0.9 % Sodium Chloride 50 ml @ 100 mls/hr IV ONCE ONE Rx#:[id number] cefTRIAXone sodium 1 gm In 0.9 50 / 50 % Sodium Chloride 50 ml @ 100 mls/hr IV ONCE ONE Rx#: [id number] vancomycin HCL 750 mg In 0.9 % 265 / 265 Sodium Chloride 250 ml @ 265 mls/hr IV ONCE ONE Rx#: [id number] Dextrose 5 % and 0.9 % NaCl 1, 241.667 / 241.667 000 ml @ 50 mls/hr IVCONT .Q20H [facility] Rx#:[id number] Other: Weight 54.431 kg Weight 54.431 kg - Constitutional Present: mild distress, chronically ill appearing - Routine HEENT Exam Eye: Present: EOMI, conjunctivae pale - Routine Neck Exam Absent: swelling - Routine Respiratory Exam Absent: accessory muscle use, respiratory distress - Routine Cardiovascular Exam Cardiovascular: Present: S1, S2 - Routine Abdominal Exam Present: soft. Absent: guarding - Routine Extremities Exam Absent: calf tenderness, pedal edema Hem/Onc Consult Result - Labs CBC & Chem 7: 04/03/21 05:15 04/03/21 05:15 Labs: Short CBC 03/31/21 04/01/21 Range/Units 21:53 03:20 WBC 11.8 H 4.8 (4.8-10.8) X10*3/uL Hgb 9.1 L 8.1 L (12.0-16.0) g/dl Hct 26.4 L 24.0 L (37.0-47.0) % Plt Count 30 L 23 L (160-400) X10*3/uL BMP 03/31/21 04/01/21 04/01/21 21:53 00:41 03:20 Sodium 123 L 126 L 127 L Potassium 4.8 4.5 4.1 Chloride 89 L 98 98 Carbon Dioxide 17 L 17 L 16 L BUN 83 H 79 H 74 H Creatinine 2.51 H 2.08 H 1.84 H Calcium 7.8 L D 6.9 L D 7.5 L D 04/01/21 08:17 Sodium Potassium Chloride Carbon Dioxide BUN Creatinine 1.50 H Calcium Cardiac Enzymes 03/31/21 Range/Units 21:53 Total Creatine Kinase 14 L (26-140) U/L Liver Function 03/31/21 Range/Units 21:53 Total Bilirubin 0.9 (0.0-1.0) mg/dL Direct Bilirubin 0.7 H (0.0-0.5) mg/dL AST 142 H (5-31) U/L ALT 65 H (0-31) U/L Alkaline Phosphatase 91 D (39-117) U/L Albumin 2.4 L D (3.5-5.0) g/dL Urine 04/01/21 Range/Units 01:58 Urine Color YELLOW Urine Appearance HAZY Urine pH 5.5 (5.0-8.0) Ur Specific [place] 1.025 (1.005-1.025) Urine Protein TRACE (NEG-TRACE) MG/DL Urine Glucose (UA) NEG (NEG) MG/DL Assessment and Plan Patient Active problem list reviewed?: Yes (1) Thrombocytopenia Status: Acute Assessment and plan: 1. This is an unfortunate 25-year-old woman with chronic IV drug abuse who has been admitted for sepsis/multifocal pneumonia. She is found to have new onset anemia and thrombocytopenia, she had normal blood counts in April 2020. She has elevated PT/INR in D-dimer. Submit PTT and fibrinogen level, DIC is most likely diagnosis for thrombocytopenia. LDH is not significantly elevated. D-dimer is over 3000. V/Q scan was read as intermediate probability for pulmonary embolism. She was g iven 1 dose of Lovenox. As her platelet counts are below 30 K, she is at increased risk of bleeding from anticoagulation. Her kidney functions are improving with IV hydration. Therefore this is less likely to be myelophthisic process such as TTP or HUS. I recommend obtaining a CT angiogram when kidney functions improved to confirm pulmonary embolism before starting her on therapeutic anticoagulation. I thank you very much for this consultation. - Time Spent With Patient Time Spent with Patient (in minutes): 20
[2021-04-01] MEDS: methADONE HCl 20 MG/2 ML ORAL.CONC 10 MG PO (17:02)
--- NOTE | 2021-04-01 17:56 | HO.ADDICTCON ---
History of Present Illness Date of Service: 04/01/2021 Chief Complaint: PNA Reason for Consult: OUD eval and treatment Requesting physician: Jarett Browne Sources of Information: patient interviewed and chart reviewed HPI Narrative: Patient is a 25 year old female currently medically admitted with severe sepsis and pneumonia. Consult requested to assess and treat substance use disorders Patient reports that she is currently using approximately a bundle of heroin IV QD as well as a gram of cocaine IV QD. Has been using for about 3 years. Last use, reported as being last evening prior to admission She reports 2 ATS admissions, most recently approx 1 year ago History of methadone treatment last in October 2020 was at 70mg QD. Has not yet had any periods of complete abstinence, but finds that methadone significantly reduced the amount she used. She denies any psychiatric history. Family history of addiction (father with AUD) She is currently living in [place] with a friend, unclear if this is stable housing or not. Denies any previous hospitalizations related to IVDU. Ill appearing. Reporting restlessness, chills, anxiety and diaphoresis Agreeable to methadone Medical Evaluation Reviewed: Yes several low BP readings during the day Review of Systems Constitutional: Reports as per HPI, Reports body ache(s), Reports chills, Reports lethargy and Reports malaise Diagnostics Vital Signs (24Hr): Vital Signs - 24 hr 03/31/21 20:53 03/31/21 21:19 03/31/21 22:50 Temperature 99.2 F 98.6 F 98.7 F Pulse Rate 114 H 114 H 102 H Respiratory Rate 40 H 46 H 35 H Blood Pressure 100/45 L 91/45 L 104/47 L Pulse Oximetry 87 L 96 97 03/31/21 23:21 03/31/21 23:31 04/01/21 00:06 Temperature Pulse Rate 102 H 104 H Respiratory Rate 26 H 26 H 45 H Blood Pressure 107/41 L 110/49 L Pulse Oximetry 92 94 04/01/21 01:00 04/01/21 01:32 04/01/21 05:41 Temperature 98.4 F 102.7 F H Pulse Rate 112 H 118 H 121 H Respiratory Rate 17 30 H 28 H Blood Pressure 111/49 L 120/52 L 104/35 L Pulse Oximetry 94 99 93 04/01/21 07:27 04/01/21 08:00 04/01/21 08:15 Temperature 98.9 F 100.4 F Pulse Rate 108 H 99 97 Respiratory Rate 52 H 50 H 36 H Blood Pressure 97/34 L 91/47 L 99/45 L Pulse Oximetry 93 96 96 04/01/21 08:39 04/01/21 10:39 04/01/21 13:56 Temperature 97.8 F 97.8 F Pulse Rate 95 83 81 Respiratory Rate 32 H 18 Blood Pressure 97/39 L 90/40 L Pulse Oximetry 98 97 04/01/21 15:53 04/01/21 17:03 Temperature Pulse Rate 91 83 Respiratory Rate 26 H 20 Blood Pressure 104/58 L 100/58 L Pulse Oximetry BMI result Body Mass Index 24.2 Labs Results: 04/01/21 03:20 04/01/21 08:17 Labs: Laboratory Results - last 48 hr 03/31/21 03/31/21 03/31/21 21:30 21:53 21:53 WBC 11.8 H RBC 3.65 L Hgb 9.1 L Hct 26.4 L MCV 72.3 L MCH 24.9 L MCHC 34.5 RDW 15.2 Plt Count 30 L MPV TNP Immature Gran % (Auto) Cancelled Neut % (Auto) Cancelled Lymph % (Auto) Cancelled [place] % (Auto) Cancelled Eos % (Auto) Cancelled Baso % (Auto) Cancelled Lymph # (Auto) Cancelled [place] # (Auto) Cancelled Eos # (Auto) Cancelled Baso # (Auto) Cancelled Abs Immat Gran (auto) Cancelled Absolute Neuts (auto) Cancelled Absolute Nucleated RBC 0.000 Nucleated RBC % (auto) 0.0 Neutrophils % (Manual) 71 Band Neutrophils % 4 Lymphocytes % (Manual) 13 L Monocytes % (Manual) 12 H Abs Neuts (Manual) 8.9 H Lymphocytes # (Manual) 1.5 Monocytes # (Manual) 1.4 H Toxic Vacuolation PRESENT Platelet Estimate DECREASED Plt Morphology Comment NORMAL RBC Morphology NOTED Picacho Cells 2+ (3-5) Acanthocytes (Spur) 2+ (3-5) Schistocytes 1+ (0-2) Smear Path Review SEE NOTE PT INR D-Dimer High Sensitivty Sodium 123 L Potassium 4.8 Chloride 89 L Carbon Dioxide 17 L Anion Gap 22 H BUN 83 H Creatinine 2.51 H Estim Creat Clear Calc 26.2 Estimated GFR 24 Random Glucose 92 Osmolality Lactic Acid Lactic Acid Fup @ 2Hr Lactic Acid Fup @ 4Hr Calcium 7.8 L D Magnesium 2.0 Total Bilirubin 0.9 Direct Bilirubin 0.7 H AST 142 H ALT 65 H Alkaline Phosphatase 91 D Lactate Dehydrogenase Total Creatine Kinase 14 L Troponin I High Sens Total Protein 6.6 Albumin 2.4 L D Urine Color Urine Appearance Urine pH Ur Specific [place] Urine Protein Urine Glucose (UA) Urine Ketones Urine Blood Urine Nitrite Ur Leukocyte Esterase Urine RBC Urine WBC Ur Squamous Epith Cells Urine Bacteria Urine Mucus Urine Osmolality Ur Random Sodium Ur Random Chloride Urine Creatinine Urine Test Urine Opiates Screen Urine Fentanyl Screen Ur Barbiturates Screen Ur Phencyclidine Scrn Ur Amphetamines Screen U Benzodiazepines Scrn Urine Cocaine Screen U Marijuana (THC) Screen Ethyl Alcohol COVID-19 ([facility]) COVID-19 Clin Com Hepatitis A IgM Ab Hep Bs Antigen Hep Bs Antibody Hep B Core Total Ab Hepatitis C Ab (EIA) HIV 1&2 Ab/P24 Ag 4thGn Influenza Type A (PCR) NEGATIVE Influenza Type B (PCR) NEGATIVE RSV RNA Qual (PCR) NEGATIVE SARS-CoV-2 RNA (RT-PCR) NEGATIVE 03/31/21 03/31/21 03/31/21 21:53 21:53 21:53 WBC RBC Hgb Hct MCV MCH MCHC RDW Plt Count MPV Immature Gran % (Auto) Neut % (Auto) Lymph % (Auto) [place] % (Auto) Eos % (Auto) Baso % (Auto) Lymph # (Auto) [place] # (Auto) Eos # (Auto) Baso # (Auto) Abs Immat Gran (auto) Absolute Neuts (auto) Absolute Nucleated RBC Nucleated RBC % (auto) Neutrophils % (Manual) Band Neutrophils % Lymphocytes % (Manual) Monocytes % (Manual) Abs Neuts (Manual) Lymphocytes # (Manual) Monocytes # (Manual) Toxic Vacuolation Platelet Estimate Plt Morphology Comment RBC Morphology Ross Cells Acanthocytes (Spur) Schistocytes Smear Path Review PT 18.9 H INR 1.6 H D-Dimer High Sensitivty 3263 Sodium Potassium Chloride Carbon Dioxide Anion Gap BUN Creatinine Estim Creat Clear Calc Estimated GFR Random Glucose Osmolality Lactic Acid 3.2 H* Lactic Acid Fup @ 2Hr Lactic Acid Fup @ 4Hr Calcium Magnesium Total Bilirubin Direct Bilirubin AST ALT Alkaline Phosphatase Lactate Dehydrogenase Total Creatine Kinase Troponin I High Sens < 3.5 Total Protein Albumin Urine Color Urine Appearance Urine pH Ur Specific [place] Urine Protein Urine Glucose (UA) Urine Ketones Urine Blood Urine Nitrite Ur Leukocyte Esterase Urine RBC Urine WBC Ur Squamous Epith Cells Urine Bacteria Urine Mucus Urine Osmolality Ur Random Sodium Ur Random Chloride Urine Creatinine Urine Test Urine Opiates Screen Urine Fentanyl Screen Ur Barbiturates Screen Ur Phencyclidine Scrn Ur Amphetamines Screen U Benzodiazepines Scrn Urine Cocaine Screen U Marijuana (THC) Screen Ethyl Alcohol COVID-19 ([facility]) COVID-19 Clin Com Hepatitis A IgM Ab Hep Bs Antigen Hep Bs Antibody Hep B Core Total Ab Hepatitis C Ab (EIA) HIV 1&2 Ab/P24 Ag 4thGn Influenza Type A (PCR) Influenza Type B (PCR) RSV RNA Qual (PCR) SARS-CoV-2 RNA (RT-PCR) 03/31/21 03/31/21 03/31/21 21:53 21:53 22:21 WBC RBC Hgb Hct MCV MCH MCHC RDW Plt Count MPV Immature Gran % (Auto) Neut % (Auto) Lymph % (Auto) [place] % (Auto) Eos % (Auto) Baso % (Auto) Lymph # (Auto) [place] # (Auto) Eos # (Auto) Baso # (Auto) Abs Immat Gran (auto) Absolute Neuts (auto) Absolute Nucleated RBC Nucleated RBC % (auto) Neutrophils % (Manual) Band Neutrophils % Lymphocytes % (Manual) Monocytes % (Manual) Abs Neuts (Manual) Lymphocytes # (Manual) Monocytes # (Manual) Toxic Vacuolation Platelet Estimate Plt Morphology Comment RBC Morphology Picacho Cells Acanthocytes (Spur) Schistocytes Smear Path Review PT INR D-Dimer High Sensitivty Sodium Potassium Chloride Carbon Dioxide Anion Gap BUN Creatinine Estim Creat Clear Calc Estimated GFR Random Glucose Osmolality 282 Lactic Acid Lactic Acid Fup @ 2Hr Lactic Acid Fup @ 4Hr Calcium Magnesium Total Bilirubin Direct Bilirubin AST ALT Alkaline Phosphatase Lactate Dehydrogenase Total Creatine Kinase Troponin I High Sens Total Protein Albumin Urine Color Urine Appearance Urine pH Ur Specific [place] Urine Protein Urine Glucose (UA) Urine Ketones Urine Blood Urine Nitrite Ur Leukocyte Esterase Urine RBC Urine WBC Ur Squamous Epith Cells Urine Bacteria Urine Mucus Urine Osmolality Ur Random Sodium Ur Random Chloride Urine Creatinine Urine Test Urine Opiates Screen Urine Fentanyl Screen Ur Barbiturates Screen Ur Phencyclidine Scrn Ur Amphetamines Screen U Benzodiazepines Scrn Urine Cocaine Screen U Marijuana (THC) Screen Ethyl Alcohol < 10 COVID-19 ([facility]) Negative COVID-19 Clin Com See Note Hepatitis A IgM Ab Hep Bs Antigen Hep Bs Antibody Hep B Core Total Ab Hepatitis C Ab (EIA) HIV 1&2 Ab/P24 Ag 4thGn Influenza Type A (PCR) Influenza Type B (PCR) RSV RNA Qual (PCR) SARS-CoV-2 RNA (RT-PCR) 04/01/21 04/01/21 04/01/21 00:41 00:41 00:41 WBC RBC Hgb Hct MCV MCH MCHC RDW Plt Count MPV Immature Gran % (Auto) Neut % (Auto) Lymph % (Auto) [place] % (Auto) Eos % (Auto) Baso % (Auto) Lymph # (Auto) [place] # (Auto) Eos # (Auto) Baso # (Auto) Abs Immat Gran (auto) Absolute Neuts (auto) Absolute Nucleated RBC Nucleated RBC % (auto) Neutrophils % (Manual) Band Neutrophils % Lymphocytes % (Manual) Monocytes % (Manual) Abs Neuts (Manual) Lymphocytes # (Manual) Monocytes # (Manual) Toxic Vacuolation Platelet Estimate Plt Morphology Comment RBC Morphology Ross Cells Acanthocytes (Spur) Schistocytes Smear Path Review PT INR D-Dimer High Sensitivty Sodium 126 L Potassium 4.5 Chloride 98 Carbon Dioxide 17 L Anion Gap 16 BUN 79 H Creatinine 2.08 H Estim Creat Clear Calc 31.6 Estimated GFR 30 Random Glucose 98 Osmolality Lactic Acid Lactic Acid Fup @ 2Hr 2.1 H* Lactic Acid Fup @ 4Hr Calcium 6.9 L D Magnesium Total Bilirubin Direct Bilirubin AST ALT Alkaline Phosphatase Lactate Dehydrogenase Total Creatine Kinase Troponin I High Sens Total Protein Albumin Urine Color Urine Appearance Urine pH Ur Specific [place] Urine Protein Urine Glucose (UA) Urine Ketones Urine Blood Urine Nitrite Ur Leukocyte Esterase Urine RBC Urine WBC Ur Squamous Epith Cells Urine Bacteria Urine Mucus Urine Osmolality Ur Random Sodium Ur Random Chloride Urine Creatinine Urine Test Urine Opiates Screen Urine Fentanyl Screen Ur Barbiturates Screen Ur Phencyclidine Scrn Ur Amphetamines Screen U Benzodiazepines Scrn Urine Cocaine Screen U Marijuana (THC) Screen Ethyl Alcohol COVID-19 ([facility]) COVID-19 Clin Com Hepatitis A IgM Ab Nonreactive Hep Bs Antigen Negative Hep Bs Antibody REACTIVE Hep B Core Total Ab Nonreactive Hepatitis C Ab (EIA) Reactive H HIV 1&2 Ab/P24 Ag 4thGn Nonreactive Influenza Type A (PCR) Influenza Type B (PCR) RSV RNA Qual (PCR) SARS-CoV-2 RNA (RT-PCR) 04/01/21 04/01/21 04/01/21 00:41 01:58 01:58 WBC RBC Hgb Hct MCV MCH MCHC RDW Plt Count MPV Immature Gran % (Auto) Neut % (Auto) Lymph % (Auto) [place] % (Auto) Eos % (Auto) Baso % (Auto) Lymph # (Auto) [place] # (Auto) Eos # (Auto) Baso # (Auto) Abs Immat Gran (auto) Absolute Neuts (auto) Absolute Nucleated RBC Nucleated RBC % (auto) Neutrophils % (Manual) Band Neutrophils % Lymphocytes % (Manual) Monocytes % (Manual) Abs Neuts (Manual) Lymphocytes # (Manual) Monocytes # (Manual) Toxic Vacuolation Platelet Estimate Plt Morphology Comment RBC Morphology Ross Cells Acanthocytes (Spur) Schistocytes Smear Path Review PT INR D-Dimer High Sensitivty Sodium Potassium Chloride Carbon Dioxide Anion Gap BUN Creatinine Estim Creat Clear Calc Estimated GFR Random Glucose Osmolality 286 Lactic Acid Lactic Acid Fup @ 2Hr Lactic Acid Fup @ 4Hr Calcium Magnesium Total Bilirubin Direct Bilirubin AST ALT Alkaline Phosphatase Lactate Dehydrogenase Total Creatine Kinase Troponin I High Sens Total Protein Albumin Urine Color YELLOW Urine Appearance HAZY Urine pH 5.5 Ur Specific [place] 1.025 Urine Protein TRACE Urine Glucose (UA) NEG Urine Ketones NEG Urine Blood 2+ H Urine Nitrite NEG Ur Leukocyte Esterase 2+ H Urine RBC 10-14 H Urine WBC 30-49 H Ur Squamous Epith Cells 1+ Urine Bacteria 2+ Urine Mucus 2+ Urine Osmolality Ur Random Sodium Ur Random Chloride Urine Creatinine Urine Test Urine Opiates Screen POSITIVE H Urine Fentanyl Screen POSITIVE H Ur Barbiturates Screen Not Detected Ur Phencyclidine Scrn POSITIVE H Ur Amphetamines Screen Not Detected U Benzodiazepines Scrn Not Detected Urine Cocaine Screen POSITIVE H U Marijuana (THC) Screen Not Detected Ethyl Alcohol COVID-19 ([facility]) COVID-19 Clin Com Hepatitis A IgM Ab Hep Bs Antigen Hep Bs Antibody Hep B Core Total Ab Hepatitis C Ab (EIA) HIV 1&2 Ab/P24 Ag 4thGn Influenza Type A (PCR) Influenza Type B (PCR) RSV RNA Qual (PCR) SARS-CoV-2 RNA (RT-PCR) 04/01/21 04/01/21 04/01/21 01:58 01:58 01:58 WBC RBC Hgb Hct MCV MCH MCHC RDW Plt Count MPV Immature Gran % (Auto) Neut % (Auto) Lymph % (Auto) [place] % (Auto) Eos % (Auto) Baso % (Auto) Lymph # (Auto) [place] # (Auto) Eos # (Auto) Baso # (Auto) Abs Immat Gran (auto) Absolute Neuts (auto) Absolute Nucleated RBC Nucleated RBC % (auto) Neutrophils % (Manual) Band Neutrophils % Lymphocytes % (Manual) Monocytes % (Manual) Abs Neuts (Manual) Lymphocytes # (Manual) Monocytes # (Manual) Toxic Vacuolation Platelet Estimate Plt Morphology Comment RBC Morphology Picacho Cells Acanthocytes (Spur) Schistocytes Smear Path Review PT INR D-Dimer High Sensitivty Sodium Potassium Chloride Carbon Dioxide Anion Gap BUN Creatinine Estim Creat Clear Calc Estimated GFR Random Glucose Osmolality Lactic Acid Lactic Acid Fup @ 2Hr Lactic Acid Fup @ 4Hr Calcium Magnesium Total Bilirubin Direct Bilirubin AST ALT Alkaline Phosphatase Lactate Dehydrogenase Total Creatine Kinase Troponin I High Sens Total Protein Albumin Urine Color Urine Appearance Urine pH Ur Specific [place] Urine Protein Urine Glucose (UA) Urine Ketones Urine Blood Urine Nitrite Ur Leukocyte Esterase Urine RBC Urine WBC Ur Squamous Epith Cells Urine Bacteria Urine Mucus Urine Osmolality 344 L Ur Random Sodium 37.0 Ur Random Chloride 20.0 Urine Creatinine 77.91 Urine Test NEGATIVE Urine Opiates Screen Urine Fentanyl Screen Ur Barbiturates Screen Ur Phencyclidine Scrn Ur Amphetamines Screen U Benzodiazepines Scrn Urine Cocaine Screen U Marijuana (THC) Screen Ethyl Alcohol COVID-19 ([facility]) COVID-19 Clin Com Hepatitis A IgM Ab Hep Bs Antigen Hep Bs Antibody Hep B Core Total Ab Hepatitis C Ab (EIA) HIV 1&2 Ab/P24 Ag 4thGn Influenza Type A (PCR) Influenza Type B (PCR) RSV RNA Qual (PCR) SARS-CoV-2 RNA (RT-PCR) 04/01/21 04/01/21 04/01/21 03:20 03:20 03:20 WBC 4.8 RBC 3.28 L Hgb 8.1 L Hct 24.0 L MCV 73.2 L MCH 24.7 L MCHC 33.8 RDW 15.0 Plt Count 23 L MPV Not Reportable Immature Gran % (Auto) 2.5 H Neut % (Auto) 71.7 Lymph % (Auto) 14.6 L [place] % (Auto) 10.8 Eos % (Auto) 0.2 Baso % (Auto) 0.2 Lymph # (Auto) 0.7 L [place] # (Auto) 0.5 Eos # (Auto) 0.0 Baso # (Auto) 0.0 Abs Immat Gran (auto) 0.12 H Absolute Neuts (auto) 3.5 Absolute Nucleated RBC 0.000 Nucleated RBC % (auto) 0.0 Neutrophils % (Manual) Band Neutrophils % Lymphocytes % (Manual) Monocytes % (Manual) Abs Neuts (Manual) Lymphocytes # (Manual) Monocytes # (Manual) Toxic Vacuolation Platelet Estimate Plt Morphology Comment RBC Morphology Ross Cells Acanthocytes (Spur) Schistocytes Smear Path Review PT INR D-Dimer High Sensitivty Sodium 127 L Potassium 4.1 Chloride 98 Carbon Dioxide 16 L Anion Gap 17 BUN 74 H Creatinine 1.84 H Estim Creat Clear Calc 35.8 Estimated GFR 34 Random Glucose 142 H Osmolality Lactic Acid Lactic Acid Fup @ 2Hr Lactic Acid Fup @ 4Hr 1.9 Calcium 7.5 L D Magnesium Total Bilirubin Direct Bilirubin AST ALT Alkaline Phosphatase Lactate Dehydrogenase Total Creatine Kinase Troponin I High Sens Total Protein Albumin Urine Color Urine Appearance Urine pH Ur Specific [place] Urine Protein Urine Glucose (UA) Urine Ketones Urine Blood Urine Nitrite Ur Leukocyte Esterase Urine RBC Urine WBC Ur Squamous Epith Cells Urine Bacteria Urine Mucus Urine Osmolality Ur Random Sodium Ur Random Chloride Urine Creatinine Urine Test Urine Opiates Screen Urine Fentanyl Screen Ur Barbiturates Screen Ur Phencyclidine Scrn Ur Amphetamines Screen U Benzodiazepines Scrn Urine Cocaine Screen U Marijuana (THC) Screen Ethyl Alcohol COVID-19 ([facility]) COVID-19 Clin Com Hepatitis A IgM Ab Hep Bs Antigen Hep Bs Antibody Hep B Core Total Ab Hepatitis C Ab (EIA) HIV 1&2 Ab/P24 Ag 4thGn Influenza Type A (PCR) Influenza Type B (PCR) RSV RNA Qual (PCR) SARS-CoV-2 RNA (RT-PCR) 04/01/21 04/01/21 04/01/21 06:39 08:17 08:17 WBC RBC Hgb Hct MCV MCH MCHC RDW Plt Count MPV Immature Gran % (Auto) Neut % (Auto) Lymph % (Auto) [place] % (Auto) Eos % (Auto) Baso % (Auto) Lymph # (Auto) [place] # (Auto) Eos # (Auto) Baso # (Auto) Abs Immat Gran (auto) Absolute Neuts (auto) Absolute Nucleated RBC Nucleated RBC % (auto) Neutrophils % (Manual) Band Neutrophils % Lymphocytes % (Manual) Monocytes % (Manual) Abs Neuts (Manual) Lymphocytes # (Manual) Monocytes # (Manual) Toxic Vacuolation Platelet Estimate Plt Morphology Comment RBC Morphology Picacho Cells Acanthocytes (Spur) Schistocytes Smear Path Review PT INR D-Dimer High Sensitivty Sodium Potassium Chloride Carbon Dioxide Anion Gap BUN Creatinine 1.50 H Estim Creat Clear Calc 43.9 Estimated GFR 43 Random Glucose Osmolality Lactic Acid 2.1 H* Lactic Acid Fup @ 2Hr 1.8 Lactic Acid Fup @ 4Hr Calcium Magnesium Total Bilirubin Direct Bilirubin AST ALT Alkaline Phosphatase Lactate Dehydrogenase Total Creatine Kinase Troponin I High Sens Total Protein Albumin Urine Color Urine Appearance Urine pH Ur Specific [place] Urine Protein Urine Glucose (UA) Urine Ketones Urine Blood Urine Nitrite Ur Leukocyte Esterase Urine RBC Urine WBC Ur Squamous Epith Cells Urine Bacteria Urine Mucus Urine Osmolality Ur Random Sodium Ur Random Chloride Urine Creatinine Urine Test Urine Opiates Screen Urine Fentanyl Screen Ur Barbiturates Screen Ur Phencyclidine Scrn Ur Amphetamines Screen U Benzodiazepines Scrn Urine Cocaine Screen U Marijuana (THC) Screen Ethyl Alcohol COVID-19 ([facility]) COVID-19 Clin Com Hepatitis A IgM Ab Hep Bs Antigen Hep Bs Antibody Hep B Core Total Ab Hepatitis C Ab (EIA) HIV 1&2 Ab/P24 Ag 4thGn Influenza Type A (PCR) Influenza Type B (PCR) RSV RNA Qual (PCR) SARS-CoV-2 RNA (RT-PCR) 04/01/21 10:54 WBC RBC Hgb Hct MCV MCH MCHC RDW Plt Count MPV Immature Gran % (Auto) Neut % (Auto) Lymph % (Auto) [place] % (Auto) Eos % (Auto) Baso % (Auto) Lymph # (Auto) [place] # (Auto) Eos # (Auto) Baso # (Auto) Abs Immat Gran (auto) Absolute Neuts (auto) Absolute Nucleated RBC Nucleated RBC % (auto) Neutrophils % (Manual) Band Neutrophils % Lymphocytes % (Manual) Monocytes % (Manual) Abs Neuts (Manual) Lymphocytes # (Manual) Monocytes # (Manual) Toxic Vacuolation Platelet Estimate Plt Morphology Comment RBC Morphology Ross Cells Acanthocytes (Spur) Schistocytes Smear Path Review PT INR D-Dimer High Sensitivty Sodium Potassium Chloride Carbon Dioxide Anion Gap BUN Creatinine Estim Creat Clear Calc Estimated GFR Random Glucose Osmolality Lactic Acid Lactic Acid Fup @ 2Hr Lactic Acid Fup @ 4Hr Calcium Magnesium Total Bilirubin Direct Bilirubin AST ALT Alkaline Phosphatase Lactate Dehydrogenase 250 H Total Creatine Kinase Troponin I High Sens Total Protein Albumin Urine Color Urine Appearance Urine pH Ur Specific [place] Urine Protein Urine Glucose (UA) Urine Ketones Urine Blood Urine Nitrite Ur Leukocyte Esterase Urine RBC Urine WBC Ur Squamous Epith Cells Urine Bacteria Urine Mucus Urine Osmolality Ur Random Sodium Ur Random Chloride Urine Creatinine Urine Test Urine Opiates Screen Urine Fentanyl Screen Ur Barbiturates Screen Ur Phencyclidine Scrn Ur Amphetamines Screen U Benzodiazepines Scrn Urine Cocaine Screen U Marijuana (THC) Screen Ethyl Alcohol COVID-19 ([facility]) COVID-19 Clin Com Hepatitis A IgM Ab Hep Bs Antigen Hep Bs Antibody Hep B Core Total Ab Hepatitis C Ab (EIA) HIV 1&2 Ab/P24 Ag 4thGn Influenza Type A (PCR) Influenza Type B (PCR) RSV RNA Qual (PCR) SARS-CoV-2 RNA (RT-PCR) Imaging Radiology Impressions: ITS Impressions Chest X-Ray 03/31/21 22:26 IMPRESSION: Patchy bilateral airspace disease, most consistent with Covid pneumonia. Abdomen Ultrasound 04/01/21 09:54 IMPRESSION: Enlarged liver. Thickened edematous gallbladder wall. No gallstones are seen. Differential would include gallbladder wall changes related to liver disease, cholangitis, low albumin, CHF, acalculous cholecystitis and pancreatitis. If there is clinical concern of acalculous cholecystitis, HIDA scan would be recommended. Limited visualization of the pancreas. Small right pleural effusion. Pulmonary Perfusion Imaging 04/01/21 13:43 IMPRESSION: Intermediate probability of pulmonary embolism. These abnormalities may be due to pulmonary emboli or severe pneumonitis, or a combination of the two. If not contraindicated, CTA pulmonary embolism protocol would be helpful in differentiating these. Mental Status Exam Mental Status Exam Patient Appearance: Fatigued, Disheveled and Perspiring Patient Orientation: Person, Place, Time and Situation Level of Consciousness: Awake and Alert Patient Behavior: Cooperative and Passive Mood Description: Anxious Affect Description: Anxious Patient Cognition Impaired: No Thought Process: Goal Oriented Thought Content: positive for [place] Judgement: Fair Medications Medications Current Medications Albuterol/Ipratropium (Albuterol/Iprat 2.5/0.5mg 3 Ml Ampul.Neb) 3 ml INHALE RQ6H WHILE AWAKE [place] Last Admin: 04/01/21 13:39 Dose: Not Given Documented by: Albuterol/Ipratropium (Albuterol/Iprat 2.5/0.5mg 3 Ml Ampul.Neb) 3 ml INHALE RQ4H PRN PRN Reason: Shortness of Breath/Wheezing Dexamethasone (Dexamethasone 6 Mg Tablet) 6 mg PO DAILY [facility] Last Admin: 04/01/21 08:11 Dose: 6 mg Documented by: Guaifenesin (Guaifenesin 100 Mg/5 Ml Liquid) 5 ml PO Q4H PRN PRN Reason: Cough Last Admin: 04/01/21 08:37 Dose: 5 ml Documented by: Hydroxyzine HCl (Hydroxyzine Hcl 25 Mg Tablet) 25 mg PO Q6H PRN PRN Reason: Anxiety Last Admin: 04/01/21 15:50 Dose: 25 mg Documented by: Dextrose/Sodium Chloride (D5ns) 1,000 mls @ 80 mls/hr IVCONT .[id number] [facility] Last Infusion: 04/01/21 05:58 Dose: 0 mls/hr Documented by: Piperacillin Sod/Tazobactam (Sod 2.25 gm/ Sodium Chloride) 50 mls @ 100 mls/hr IV Q8H [facility] Last Infusion: 04/01/21 09:00 Dose: Infused Documented by: Vancomycin HCl 1,250 mg/ (Sodium Chloride) 250 mls @ 166.667 mls/hr IV Q24H [facility] Melatonin (Melatonin 3 Mg Tablet) 6 mg PO BEDTIME PRN PRN Reason: Insomnia Methadone HCl (Methadone Hcl 20 Mg/2 Ml Oral.Conc) 40 mg PO ONCE@0900 ONE Stop: 04/02/21 09:01 Oxycodone HCl (Oxycodone Hcl Immed Release 5 Mg Tablet) 5 mg PO Q6H PRN PRN Reason: Pain, Severe (Pain Scale 7-10) Last Admin: 04/01/21 15:50 Dose: 5 mg Documented by: Pharmacy Consult (Consult Rx Vancomycin Dosing) 1 each MISCELLANE DAILY PRN PRN Reason: Consult order Pharmacy Consult (Consult Rx Perform Med Rec) 1 each MISCELLANE ONCE PRN PRN Reason: Consult order Senna (Sennosides 8.6 Mg Tablet) 17.2 mg PO BEDTIME PRN PRN Reason: Constipation Sodium Chloride (0.9 % Sodium Chloride Flush 3 Ml Syringe) 3 ml IVFLUSH QSHIFT [facility] Last Admin: 04/01/21 15:51 Dose: 3 ml Documented by: Allergies Allergies Allergy/AdvReac Type Severity Reaction Status Date / Time No Known Allergies Allergy Verified 05/12/20 05:11 Assessment & Plan Assessment & Plan (1) Opioid use disorder, severe, dependence: Status: Acute Code(s): F11.20 - Opioid dependence, uncomplicated Assessment and Plan: methadone 20mg administered early this afternoon Reassessed at 4:40pm, reporting mild improvement, but still feeling restless legs Additional 10mg methadone ordered for today (total of 30mg) If needed can have additional 5-1mg tonight for withdrawal sx AM methadone order in place (40mg) Will follow up in AM Discussed with hospitalist and RSRN (2) Cocaine use disorder, severe, dependence: Status: Acute Code(s): F14.20 - Cocaine dependence, uncomplicated I spent _45 minutes with the patient and/or on the patient floor today, greater than?50% of which was spent counseling/coordinating care. PMFSH Past Medical History Medical History (Updated 04/01/21 @ 18:43 by Jinny Wright CNP) Bacteremia Substance abuse Family History Family history: reviewed and not pertinent Social History Social History Household Members: None Housing: Other Housing Other:: homeless but states staying with friends Do you presently have visiting nurse or other home services: No Unable to assess alcohol history related to: Unable to respond and Refusing to respond Alcohol intake: never Patient Tobacco Use Status: Current everyday Tobacco user Substance Use Type: Crack/Cocaine, Heroin, IV Drugs and Methamphetamine service: No Current occupational status: unemployed
[2021-04-01] MEDS: Dextrose 5 % and 0.9 % NaCl 1,000 ML 80 ML IVCONT (19:32)
[2021-04-01 19:51] LABS: Anion Gap 14 (12-20); Blood Urea Nitrogen 64 mg/dL (9-16); Calcium 7.5 mg/dL (8.4-10.2); Carbon Dioxide 19 mmol/L (22-29); Chloride 104 mmol/L (96-108); Creatinine Clr Calc Pharmacy 49.9; Estimated Glomerular Filt Rate 50; Glucose Random 240 mg/dL (60-115); Potassium 3.9 mmol/L (3.3-5.1); Sodium 133 mmol/L (135-145)
[2021-04-01] MEDS: vancomycin HCL 1,250 MG in 0.9 % Sodium Chloride 250 ML 166.67 MG IV (22:26)
[2021-04-02] VITALS (8 sets, daily range): BP systolic 94–119; BP diastolic 39–55; PULSE 66–84; RESP 17–20; TEMP 36.1–36.4; O2SAT 90–97
[2021-04-02] MEDS: Piperacillin Sodium/Tazobactam 2.25 GM in 0.9 % Sodium Chloride 50 ML IV ×2 (00:16→08:16)
[2021-04-02] MEDS: oxyCODONE HCl Immed Release 5 MG TABLET PO (05:00)
[2021-04-02] MEDS: hydrOXYzine HCL 25 MG TABLET PO (05:00)
[2021-04-02 05:45] LABS: Hematocrit 21.7 % (37.0-47.0); Hemoglobin 7.4 g/dl (12.0-16.0); Mean Corpuscular HGB Conc 34.1 g/dl (31.0-35.0); Mean Corpuscular Volume 73.3 fL (80.0-98.0); Red Blood Count 2.96 X10*6/uL (4.20-5.50); Red Cell Distribution Width 15.6 % (11.0-16.0); White Blood Count 4.6 X10*3/uL (4.8-10.8)
[2021-04-02 05:47] LABS: PLT ABN DIST 1; Platelet Count 22 X10*3/uL (160-400)
[2021-04-02 05:59] LABS: Anion Gap 13 (12-20); Blood Urea Nitrogen 60 mg/dL (9-16); Calcium 7.4 mg/dL (8.4-10.2); Carbon Dioxide 17 mmol/L (22-29); Chloride 108 mmol/L (96-108); Creatinine Clr Calc Pharmacy 61.5; Estimated Glomerular Filt Rate > 60; Glucose Random 270 mg/dL (60-115); Potassium 3.7 mmol/L (3.3-5.1); Sodium 134 mmol/L (135-145)
[2021-04-02 06:07] LABS: Band Neutrophils Percent 10 % (3-5); Lymphocytes Absolute Manual 0.6 X10*3/uL (1.2-4.9); Lymphocytes Percent Manual 12 % (20-40); Monocytes Absolute Manual 0.5 X10*3/uL (0.1-1.2); Monocytes Percent Manual 10 % (2-11); Neutrophils Absolute Manual 3.6 X10*3/uL (2.0-8.3); Neutrophils Percent Manual 68 % (45-73)
[2021-04-02 06:10] LABS: Acanthocytes 1+ (0-2) /OIF; Ovalocytes 1+ (5-14) /OIF; RBC Morphology NOTED
[2021-04-02 06:11] LABS: Burr Cells 2+ (3-5) /OIF; Dohle Bodies PRESENT; Hypochromasia 1+ (5-14) /OIF; Target Cells 1+ (5-14) /OIF
[2021-04-02 06:12] LABS: Platelet Estimate DECREASED (NORMAL); Platelet Morphology Comment NORMAL
[2021-04-02 06:58] LABS: Fibrinogen 554 MG/DL (259-690)
[2021-04-02 07:00] LABS: Partial Thromboplastin Time 25.9 SEC (24.1-38.0)
[2021-04-02] MEDS: Albuterol/Iprat 2.5/0.5MG 3 ML AMPUL.NEB INHALE ×2 (07:23→20:19)
[2021-04-02] MEDS: methADONE HCl 20 MG/2 ML ORAL.CONC 40 MG PO (08:15)
--- NOTE | 2021-04-02 09:30 | CA_ITS ---
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 - There is a 2.77 cm x 1.47 cm mobile mass attached to the tricuspid valve consistent with vegetation. Findings Left Ventricle Normal left ventricular size, thickness, systolic function, and wall motion. The visually estimated ejection fraction is between 55-60%. Diastolic function is normal for age. Right Ventricle Normal right ventricular cavity size and systolic function. Atria Mild biatrial enlargement. There is no evidence of interatrial shunt by color Doppler. Aortic Valve Normal aortic valve structure and function. There is no aortic valve stenosis. There is no aortic valve regurgitation. Mitral Valve Normal mitral valve structure and function. There is no mitral valve regurgitation. There is no mitral valve stenosis. Pulmonic Valve The pulmonic valve is likely normal. Tricuspid Valve There is trace tricuspid valve regurgitation. Normal right atrial pressure. Mild pulmonary hypertension is present. There is a 2.77 cm x 1.47 cm mobile mass attached to the tricuspid valve consistent with vegetation. Venous The inferior vena cava is normal in size and collapses greater than 50% with inspiration. Pericardium/Pleural There is no evidence of pericardial effusion. Prior Study Comparison No prior study available for comparison. Measurements 2D Linear Measurements IVSd: 0.84 0.6-0.9/0.6-1.0 cm LVIDd: 4.94 3.9-5.3/4.2-5.9 cm LVIDd Index: 3.34 2.4-3.2/2.2-3.1 cm/m2 LVIDs: 2.73 2.0-3.6 cm LVPWd: 0.80 0.7-1.1 cm Ao Root: 2.70 2.1-3.5 cm LA Diam: 4.00 2.7-3.8/3.0-4.0 cm LAIDs Index: 2.70 1.5-2.3 cm/m2 LV Mass: 170.64 67-162/88-224 g LV Mass Index: 115.30 43-95/49-115 g/m2 LVOT Diam: 2.00 3.0+(-)1.3 cm Mitral Valve MV Pk E: 1.11 MV PK A: 0.73 MV Decel Time: 221.00 E/A: 1.50 E'Lateral: 20.20 E'Medial: 11.50 E/E' Med: 9.70 E/E' Lat: 5.50 PHT: 65.00 MVA PHT: 3.38 Decel [place]: 5.03 Aortic Valve AoV Pk [place]: 1.95 AoV Mn [place]: 1.19 AoV VTI: 0.36 AoV Pk Grad: 15.00 Aov Mn Grad: 7.00 CARLOS ALBERTO Cont.VTI: 2.36 LVOT LVOT Pk [place]: 1.43 LVOT Mn [place]: 0.96 LVOT VTI: 0.27 LVOT Pk Grad: 8.00 LVOT Mn Grad: 4.00 LVOT Diam: 2.00 LVOT Area: 3.14 Diastolic Function MV Pk E: 1.11 MV Pk A: 0.73 E/A: 1.50 E'Medial: 11.50 E/E' Med: 9.70 E' Laterial: 20.20 E/E' Lat: 5.50 Right Ventricle TAPSE (mm): 3.21 TVS' [place]: 20.50 Tricuspid Valve TR Pk [place]: 2.85 TR Pk Grad: 32.00 RA Press: 8.00 RVSP: 40.00 Great Vessels Aorta Ao Root-2D: 2.70 2.0-3.7 cm Ao Asc: 2.60 2.1-3.4 cm Updated in Other Vendor System with Status of Final Noel Blackwood MD electronically signed on 04/02/2021 1:36:38 PM with status of Final
--- NOTE | 2021-04-02 11:38 | MHC.RECOVRN ---
Met with pt to f/u regarding methadone titration. Pt sitting in bed eating breakfast. -received 40 mg this morning -reports sweating and restless legs persist -would like to continue increasing dose -denies questions or concerns at this time Discussed with Jinny Wright APRN.
--- NOTE | 2021-04-02 11:41 | HO.PM.IMPN ---
Subjective Subjective Date of Service: 04/02/21 Interval History: Complaining of cough denies blood in sputum, no shortness of breath, denies fever, chills, no nausea, no vomiting, no diarrhea, feeling hungry waiting for food, smokes 5-6 cigarettes a day no overnight issues Review of Systems [employer] no headache, no dizziness CVS no chest pain, no palpitation no urinary burning or urgency Musculoskeletal no pain Review of Systems: Yes all other systems are reviewed and are negative Physical Exam Vital Signs: Vital Signs: Last Vital Signs Temp 97.5 F 04/02/21 11:11 Pulse 83 04/02/21 11:11 Resp 20 04/02/21 11:11 BP 119/50 L 04/02/21 11:11 Pulse Ox 95 04/02/21 11:11 BMI result Body Mass Index 24.2 General awake alert x3, no acute distress.? Neck no JVD. CVS? regular rate rhythm, Respiratory lungs clear to auscultation, no respiratory distress, no wheeze, no rhonchi. Gastrointestinal abdomen soft, nontender, bowel sounds audible, no guarding , no rigidity. Extremities no edema. Neuro nonfocal Right forearm large area of ulcer, with raised margins , no drainage, Objective Data Active Medications Albuterol/Ipratropium (Albuterol/Iprat 2.5/0.5mg 3 Ml Ampul.Neb) 3 ml INHALE RQ6H WHILE AWAKE [facility] Last Admin: 04/02/21 07:23 Dose: 3 ml Documented by: ULRICC Albuterol/Ipratropium (Albuterol/Iprat 2.5/0.5mg 3 Ml Ampul.Neb) 3 ml INHALE RQ4H PRN PRN Reason: Shortness of Breath/Wheezing Guaifenesin (Guaifenesin 100 Mg/5 Ml Liquid) 5 ml PO Q4H PRN PRN Reason: Cough Last Admin: 04/01/21 08:37 Dose: 5 ml Documented by: DIAZOC Hydroxyzine HCl (Hydroxyzine Hcl 25 Mg Tablet) 25 mg PO Q6H PRN PRN Reason: Anxiety Last Admin: 04/02/21 05:00 Dose: 25 mg Documented by: BOURQC Vancomycin HCl 1,250 mg/ (Sodium Chloride) 250 mls @ 166.667 mls/hr IV Q24H [facility] Last Infusion: 04/02/21 00:07 Dose: 0 mls/hr Documented by: TON Piperacillin Sod/Tazobactam (Sod 3.375 gm/ Sodium Chloride) 50 mls @ 100 mls/hr IV Q6H [facility] Melatonin (Melatonin 3 Mg Tablet) 6 mg PO BEDTIME PRN PRN Reason: Insomnia Oxycodone HCl (Oxycodone Hcl Immed Release 5 Mg Tablet) 5 mg PO Q6H PRN PRN Reason: Pain, Severe (Pain Scale 7-10) Last Admin: 04/02/21 05:00 Dose: 5 mg Documented by: TON Pharmacy Consult (Consult Rx Vancomycin Dosing) 1 each MISCELLANE DAILY PRN PRN Reason: Consult order Pharmacy Consult (Consult Rx Perform Med Rec) 1 each MISCELLANE ONCE PRN PRN Reason: Consult order Senna (Sennosides 8.6 Mg Tablet) 17.2 mg PO BEDTIME PRN PRN Reason: Constipation Sodium Chloride (0.9 % Sodium Chloride Flush 3 Ml Syringe) 3 ml IVFLUSH QSHIFT [facility] Last Admin: 04/02/21 07:32 Dose: Not Given Documented by: ELIZABETH Non-Admin Reason: IV Running Labs CBC & Chem 7: 04/03/21 05:15 04/03/21 05:15 Labs: Laboratory Results - last 24 hr 03/31/21 04/01/21 04/02/21 21:53 19:15 05:18 MCV 73.3 L MCH 25.0 L MCHC 34.1 RDW 15.6 Plt Count 22 L MPV Not Reportable Immature Gran % (Auto) Cancelled Neut % (Auto) Cancelled Lymph % (Auto) Cancelled [place] % (Auto) Cancelled Eos % (Auto) Cancelled Baso % (Auto) Cancelled Lymph # (Auto) Cancelled [place] # (Auto) Cancelled Eos # (Auto) Cancelled Baso # (Auto) Cancelled Abs Immat Gran (auto) Cancelled Absolute Neuts (auto) Cancelled Absolute Nucleated RBC 0.000 Nucleated RBC % (auto) 0.0 Neutrophils % (Manual) 68 Band Neutrophils % 10 H Lymphocytes % (Manual) 12 L Monocytes % (Manual) 10 Abs Neuts (Manual) 3.6 Lymphocytes # (Manual) 0.6 L Monocytes # (Manual) 0.5 Dohle Bodies PRESENT Platelet Estimate DECREASED Plt Morphology Comment NORMAL RBC Morphology NOTED Hypochromasia 1+ (5-14) Target Cells 1+ (5-14) Ovalocytes 1+ (5-14) [place] Cells 2+ (3-5) Acanthocytes (Spur) 1+ (0-2) Smear Path Review SEE NOTE APTT Fibrinogen Anion Gap 14 Estim Creat Clear Calc 49.9 Estimated GFR 50 Random Glucose 240 H Calcium 7.5 L 04/02/21 04/02/21 05:18 05:18 MCV MCH MCHC RDW Plt Count MPV Immature Gran % (Auto) Neut % (Auto) Lymph % (Auto) [place] % (Auto) Eos % (Auto) Baso % (Auto) Lymph # (Auto) [place] # (Auto) Eos # (Auto) Baso # (Auto) Abs Immat Gran (auto) Absolute Neuts (auto) Absolute Nucleated RBC Nucleated RBC % (auto) Neutrophils % (Manual) Band Neutrophils % Lymphocytes % (Manual) Monocytes % (Manual) Abs Neuts (Manual) Lymphocytes # (Manual) Monocytes # (Manual) Dohle Bodies Platelet Estimate Plt Morphology Comment RBC Morphology Hypochromasia Target Cells Ovalocytes [place] Cells Acanthocytes (Spur) Smear Path Review APTT 25.9 Fibrinogen 554 Anion Gap 13 Estim Creat Clear Calc 61.5 Estimated GFR > 60 Random Glucose 270 H Calcium 7.4 L Microbiology Microbiology Results: Microbiology 04/01/21 Unknown Urine Culture - Final Urine clean catch - Urine fox top 03/31/21 21:53 Blood Culture - Preliminary Blood - Venous Gram positive cocci 03/31/21 21:53 Blood Culture - Preliminary Blood - Venous Gram positive cocci Assessment and Plan (1) Cocaine use disorder, severe, dependence: Status: Acute (2) Opioid use disorder, severe, dependence: Status: Acute (3) Acute respiratory failure with hypoxia: Status: Acute (4) Transaminitis: Status: Acute (5) Bacteremia: Status: Acute (6) Acute hyponatremia: Status: Acute (7) MELITON (acute kidney injury): Status: Acute (8) Pneumonia: Status: Acute (9) Leukocytosis: Status: Acute (10) Thrombocytopenia: Status: Acute (11) Anemia: Status: Acute Assessment and Plan: 25-year-old female with a past medical history of right forearm cellulitis /open wound; history of IV drug abuse -abuses IV heroin and IV cocaine; presented to the hospital today with a chief complaint of shortness of breath. ?noted to have following conditions Severe sepsis with Gram-positive bacteremia, multifocal pneumonia Blood cultures time 2 growing Gram-positive cocci follow final report Sepsis resolved Urine culture grew mixed bacterial antonio COVID-19 negative. No fevers, WBC and lactic acid normalized continue IV vancomycin and Zosyn day 2 id agreed with above treatment Workup for DIC negative echocardiogram?pend, rule out endocarditis given significant IV drug abuse history Acute hypoxic respiratory failure Due to pneumonia/hyperreactive airway disease Continue DuoNeb standing and p.r.n. continue IV antibiotic as above, wean oxygen Concern for PE, will obtain CTA chest. Right forearm lesion:? As per patient is chronic at site of prior IV drug use, has not seek medical attention Seen by wound nurse dressing applied. Severe thrombocytopenia:? Likely in the setting of sepsis and hepatitis-C Viral studies including RSV, COVID-19, rapid flu -and HIV negative Case discussed with Dr. Conde, will transfuse if platelet below 20,000 or with any evidence of bleeding, DIC screen negative , follow CBC Significant anemia no acute blood loss noted Likely due to sepsis, hepatitis C, poor nutrition Will obtain iron studies, check stool guaiac Severe hyponatremia:? Likely in setting of low solute state. Normal serum osmolality, low urine osmolality, sodium improved from 123-134 Will DC fluid restriction, DC IV fluid MELITON:? Creatinine normalized, encourage by mouth fluid ,Avoid nephrotoxins. Nephrology following Transaminitis:? Likely due to sepsis and hepatitis C Abdominal ultrasound showed enlarged liver follow labs. Polysubstance abuse/ opiate abuse/cocaine abuse: ?Being followed by addiction team continue methadone Tobacco use disorder will place on nicotine gum Elevated D-dimer:? Venous duplex negative V/Q scan shows intermediate probability with wide differential including PE/pneumonitis, tachycardia tachypnea resolved, mild hypoxia, hold off on CTA since unable to use Lovenox due to low platelet Follow clinical course follow echocardiogram for right heart strain DVT prophylaxis:? Early ambulation Code status:? Full code Quality Stroke Does the patient have a stroke diagnosis?: No VTE Prior VTE?: No VTE Risk Level:: Medical - moderate - high VTE Device Contraindication: Treatment Not Indicated VTE Drug Contraindication: N/A - Med Ordered
--- NOTE | 2021-04-02 11:53 | PM.PNNEP ---
Subjective Subjective Date of Service: 04/03/21 Interval history: Events noted Feelign better Physical Exam Vital Signs: Vital Signs: Last Vital Signs Temp 97.5 F 04/02/21 11:11 Pulse 83 04/02/21 11:11 Resp 20 04/02/21 11:11 BP 119/50 L 04/02/21 11:11 Pulse Ox 95 04/02/21 11:11 BMI result Body Mass Index 24.2 Const: Other: Disheveled General: alert Orientation/consciousness: patient oriented x3 Limitations: no limitations HENMT: Other: tacky mucous membranes Head: Yes normal to inspection Ears: hearing grossly normal bilaterally General nose exam: Normal external nose present Face and sinus: Yes normal facial exam Mouth: Normal oral and palatal mucosa present Throat: Yes posterior oropharynx normal Eyes: General: appearance normal, both eyes and all related structures Pupils: Equal, round and reactive pupils present Neck: Neck: Yes normal visual inspection Chest: Chest palpation & inspection: normal inspection of the chest Resp: Other: coarse breath sounds throughout tachypnea with a rate of 30 Cardio: Rate: regular rate Rhythm: regular rhythm Peripheral pulses: Peripheral pulses 2+ throughout GI: Inspection: Yes normal to inspection Palpation (GI): Soft to palpation and nontender Auscultation: normal bowel sounds Back/Spine/Pelvis: Thoracic/Lumbar Spine: thoracic and lumbar spine normal to inspection Skin: General skin exam: no rashes or lesions noted Neuro: Other: diffusely weak General: patient oriented x3, moves all extremities, normal sensation to monofilament and Unable to assess gait Cranial nerves: Yes Equal, round and reactive pupils present Cognition (Neuro): normal cognition Speech: No Abnormal speech present Gait exam (Neuro): Unable to assess gait Motor exam (neuro): 5/5 motor strength present throughout Extrem: Other: General: Yes normal to inspection, Yes no pedal edema and Yes no calf tenderness Objective Data Labs CBC & Chem 7: 04/03/21 05:15 04/03/21 05:15 Labs: Laboratory Results - last 24 hr 03/31/21 04/01/21 04/02/21 21:53 19:15 05:18 WBC 4.6 L RBC 2.96 L Hgb 7.4 L Hct 21.7 L MCV 73.3 L MCH 25.0 L MCHC 34.1 RDW 15.6 Plt Count 22 L MPV Not Reportable Immature Gran % (Auto) Cancelled Neut % (Auto) Cancelled Lymph % (Auto) Cancelled [place] % (Auto) Cancelled Eos % (Auto) Cancelled Baso % (Auto) Cancelled Lymph # (Auto) Cancelled [place] # (Auto) Cancelled Eos # (Auto) Cancelled Baso # (Auto) Cancelled Abs Immat Gran (auto) Cancelled Absolute Neuts (auto) Cancelled Absolute Nucleated RBC 0.000 Nucleated RBC % (auto) 0.0 Neutrophils % (Manual) 68 Band Neutrophils % 10 H Lymphocytes % (Manual) 12 L Monocytes % (Manual) 10 Abs Neuts (Manual) 3.6 Lymphocytes # (Manual) 0.6 L Monocytes # (Manual) 0.5 Dohle Bodies PRESENT Platelet Estimate DECREASED Plt Morphology Comment NORMAL RBC Morphology NOTED Hypochromasia 1+ (5-14) Target Cells 1+ (5-14) Ovalocytes 1+ (5-14) [place] Cells 2+ (3-5) Acanthocytes (Spur) 1+ (0-2) Smear Path Review SEE NOTE APTT Fibrinogen Sodium 133 L Potassium 3.9 Chloride 104 Carbon Dioxide 19 L Anion Gap 14 BUN 64 H Creatinine 1.32 Estim Creat Clear Calc 49.9 Estimated GFR 50 Random Glucose 240 H Calcium 7.5 L 04/02/21 04/02/21 05:18 05:18 WBC RBC Hgb Hct MCV MCH MCHC RDW Plt Count MPV Immature Gran % (Auto) Neut % (Auto) Lymph % (Auto) [place] % (Auto) Eos % (Auto) Baso % (Auto) Lymph # (Auto) [place] # (Auto) Eos # (Auto) Baso # (Auto) Abs Immat Gran (auto) Absolute Neuts (auto) Absolute Nucleated RBC Nucleated RBC % (auto) Neutrophils % (Manual) Band Neutrophils % Lymphocytes % (Manual) Monocytes % (Manual) Abs Neuts (Manual) Lymphocytes # (Manual) Monocytes # (Manual) Dohle Bodies Platelet Estimate Plt Morphology Comment RBC Morphology Hypochromasia Target Cells Ovalocytes [place] Cells Acanthocytes (Spur) Smear Path Review APTT 25.9 Fibrinogen 554 Sodium 134 L Potassium 3.7 Chloride 108 Carbon Dioxide 17 L Anion Gap 13 BUN 60 H Creatinine 1.07 Estim Creat Clear Calc 61.5 Estimated GFR > 60 Random Glucose 270 H Calcium 7.4 L Microbiology Microbiology Results: Microbiology 04/01/21 Unknown Urine clean catch - Urine fox top Urine Culture - Final 03/31/21 21:53 Blood - Venous Blood Culture - Preliminary Gram positive cocci 03/31/21 21:53 Blood - Venous Blood Culture - Preliminary Gram positive cocci Procedures Date of Service Date of Service: 04/02/21 Assessment & Plan Assessment and plan (1) Acute hyponatremia: Status: Acute (2) MELITON (acute kidney injury): Status: Acute Assessment and Plan: MELITON Most likely from hypoperfusion Cr back to baseline Work up in progress AGN vs ATN r/o Obstruction r/o aHUS ( anemia/Thrombocytopenia) Hypoperfution No rhabdo ( CPK 14) Severe hyponatremia: Na improving Rate of correction acceptable Sepsis in the setting of multifocal pneumonia: Chest x-ray Concern for COVID-19. Patient's rapid COVID test negative. continue IV vancomycin and Zosyn. id consulted for further recommendations. Follow-up cultures echocardiogram to rule out endocarditis given significant IV drug abuse history and concerns for sepsis. Right forearm lesion: Patient reports that chronic. Supportive care. follow-up with the general surgery/vascular surgery. Severe thrombocytopenia:/Anemia r/o Likely in the setting of sepsis. Patient currently denies any signs of bleeding. r/o aHUS Viral studies including RSV, COVID-19, rapid flu -negative so far. Will also test for HIV. Patient verbally consented. Polysubstance abuse/ opiate abuse/cocaine abuse: addiction Medicine consult. Monitor on COWS protocol. Elevated D-dimer: Venous duplex negative. Unable to do CT chest secondary MELITON. Suggest: Follow pNa and renal panel Await serologies Follow urine output and creatinine Time Spent With Patient Time: Total time spent is greater than 50% in coordination of care (as documented) at patient's floor/unit and/or counseling patient: Time with patient: 15 - 24 minutes Progress Note: Quality Stroke Does the patient have a stroke diagnosis?: No
[2021-04-02] MEDS: Piperacillin Sodium/Tazobactam 3.375 GM in 0.9 % Sodium Chloride 50 ML IV ×2 (12:37→19:47)
[2021-04-02 13:26] LABS: Complement C3 30 mg/dL (83-193)
--- NOTE | 2021-04-02 15:27 | MHC.CM.PN ---
EMR REVIEWED, PER HOSPITAL PT WILL REMAIN INPT FOR SOME TIME, PT BC'S POS FOR BACTEREMIA, NEW HEPC, NEPHROLOGY CONSULT FOR MELITON AND HYPONATREMIA, PT ALSO FOLLOWED BY ADDICTION MEDIC[facility] WHO HAS STARTED METHADONE TITRATION, PT WILL NEED STR FOR RETIREMENT IV ABX D/T CURRENT IV DRUG USE. CM WILL CONT TO FOLLOW D/C NEEDS.
--- NOTE | 2021-04-02 16:13 | MHC.RECOVRN ---
Attempted to meet with pt to f/u regarding methadone. Pt asleep.
[2021-04-02] MEDS: 0.9 % Sodium Chloride Flush 3 ML SYRINGE IVFLUSH ×2 (16:21→19:49)
[2021-04-02 17:53] LABS: Total Protein Urine Random 17 mg/dL (<12)
--- NOTE | 2021-04-02 18:33 | PC.NURSE ---
Wound assessment completed today. Patient has a ulcer on her right forearm. Patient has an ulcer from IV injection. Cleanse with wound cleanser, Triad applied and covered with non woven gauze and roll gauze. No other skin issues noted at this time.
[2021-04-02] MEDS: vancomycin HCL 1,250 MG in 0.9 % Sodium Chloride 250 ML 166.67 MG IV (23:21)
[2021-04-03] VITALS (12 sets, daily range): BP systolic 112–150; BP diastolic 55–79; PULSE 74–101; RESP 16–26; TEMP 36.4–37.9; O2SAT 94–98
[2021-04-03] MEDS: Piperacillin Sodium/Tazobactam 3.375 GM in 0.9 % Sodium Chloride 50 ML IV ×4 (01:11→18:14)
[2021-04-03] MEDS: guaiFENesin 100 MG/5 ML LIQUID PO (02:03)
[2021-04-03] MEDS: oxyCODONE HCl Immed Release 5 MG TABLET PO ×3 (02:03→18:20)
[2021-04-03] MEDS: hydrOXYzine HCL 25 MG TABLET PO ×2 (05:28→22:59)
[2021-04-03 05:45] LABS: Mean Corpuscular Volume 74.6 fL (80.0-98.0); PLT ABN DIST 1; Red Cell Distribution Width 15.9 % (11.0-16.0)
[2021-04-03 05:47] LABS: Hematocrit 21.4 % (37.0-47.0); Mean Corpuscular HGB Conc 32.7 g/dl (31.0-35.0); Mean Corpuscular Hemoglobin 24.4 pg (27.0-33.0); Red Blood Count 2.87 X10*6/uL (4.20-5.50); White Blood Count 4.5 X10*3/uL (4.8-10.8)
[2021-04-03 05:49] LABS: Hemoglobin 7.1 g/dl (12.0-16.0); Platelet Count 30 X10*3/uL (160-400)
[2021-04-03 06:28] LABS: Anion Gap 14 (12-20); Blood Urea Nitrogen 31 mg/dL (9-16); Calcium 8.1 mg/dL (8.4-10.2); Carbon Dioxide 18 mmol/L (22-29); Chloride 109 mmol/L (96-108); Creatinine Clr Calc Pharmacy 90.2; Estimated Glomerular Filt Rate > 60; Glucose Random 232 mg/dL (60-115); Iron 59 mcg/dL (30-160); Percent Iron Saturation 24 % (15-50); Potassium 4.3 mmol/L (3.3-5.1); Sodium 137 mmol/L (135-145); Total Iron Binding Capacity 249 mcg/dL (228-428); Unsaturated Iron Binding 190 ug/dL
[2021-04-03 06:40] LABS: Ferritin 328 ng/mL (10-122)
[2021-04-03] MEDS: methADONE HCl 20 MG/2 ML ORAL.CONC 45 MG PO (07:51)
[2021-04-03] MEDS: 0.9 % Sodium Chloride Flush 3 ML SYRINGE IVFLUSH ×2 (07:52→15:45)
[2021-04-03] MEDS: Albuterol/Iprat 2.5/0.5MG 3 ML AMPUL.NEB INHALE ×2 (07:55→16:02)
--- NOTE | 2021-04-03 08:20 | MHC.RECOVRN ---
Left message #4 with [facility] to attempt to obtain copy of patient's ID. Awaiting call back.
[2021-04-03] MEDS: 0.9 % Sodium Chloride 1,000 ML 150 ML IVCONT ×2 (09:24→17:03)
--- NOTE | 2021-04-03 11:01 | P.PNNP_ITS ---
Subjective Subjective Date of Service: 04/04/21 Interval history: Events noted Feelign better Physical Exam Vital Signs: Vital Signs: Last Vital Signs Temp 98.9 F 04/03/21 08:56 Pulse 92 04/03/21 08:56 Resp 20 04/03/21 08:56 BP 124/58 L 04/03/21 08:56 Pulse Ox 95 04/03/21 08:56 BMI result Body Mass Index 24.2 Const: Other: Disheveled General: alert Orientation/consciousness: patient oriented x3 Limitations: no limitations HENMT: Other: tacky mucous membranes Head: Yes normal to inspection Ears: hearing grossly normal bilaterally General nose exam: Normal external nose present Face and sinus: Yes normal facial exam Mouth: Normal oral and palatal mucosa present Throat: Yes posterior oropharynx normal Eyes: General: appearance normal, both eyes and all related structures Pupils: Equal, round and reactive pupils present Neck: Neck: Yes normal visual inspection Chest: Chest palpation & inspection: normal inspection of the chest Resp: Other: coarse breath sounds throughout tachypnea with a rate of 30 Cardio: Rate: regular rate Rhythm: regular rhythm Peripheral pulses: Peripheral pulses 2+ throughout GI: Inspection: Yes normal to inspection Palpation (GI): Soft to palpation and nontender Auscultation: normal bowel sounds Back/Spine/Pelvis: Thoracic/Lumbar Spine: thoracic and lumbar spine normal to inspection Skin: General skin exam: no rashes or lesions noted Neuro: Other: diffusely weak General: patient oriented x3, moves all extremities, normal sensation to monofilament and Unable to assess gait Cranial nerves: Yes Equal, round and reactive pupils present Cognition (Neuro): normal cognition Speech: No Abnormal speech present Gait exam (Neuro): Unable to assess gait Motor exam (neuro): 5/5 motor strength present throughout Extrem: Other: General: Yes normal to inspection, Yes no pedal edema and Yes no calf tenderness Objective Data Labs CBC & Chem 7: 04/04/21 08:16 04/04/21 08:16 Labs: Laboratory Results - last 24 hr 04/01/21 04/02/21 04/03/21 10:54 Unknown 05:15 WBC 4.5 L RBC 2.87 L Hgb 7.1 L Hct 21.4 L MCV 74.6 L MCH 24.4 L MCHC 32.7 RDW 15.9 Plt Count 30 L D MPV Not Reportable Absolute Nucleated RBC 0.000 Nucleated RBC % (auto) 0.0 Sodium Potassium Chloride Carbon Dioxide Anion Gap BUN Creatinine Estim Creat Clear Calc Estimated GFR Random Glucose Calcium Iron TIBC % Saturation Unsat Iron Binding Ferritin U Random Total Protein 17 H Complement C3 30 L Complement C4 7 L Blood Type Antibody Screen Crossmatch 04/03/21 04/03/21 04/03/21 05:15 05:15 09:15 WBC RBC Hgb Hct MCV MCH MCHC RDW Plt Count MPV Absolute Nucleated RBC Nucleated RBC % (auto) Sodium 137 Potassium 4.3 Chloride 109 H Carbon Dioxide 18 L Anion Gap 14 BUN 31 H Creatinine 0.73 Estim Creat Clear Calc 90.2 Estimated GFR > 60 Random Glucose 232 H Calcium 8.1 L D Iron 59 TIBC 249 % Saturation 24 Unsat Iron Binding 190 Ferritin 328 H U Random Total Protein Complement C3 Complement C4 Blood Type O Positive Antibody Screen NEGATIVE Crossmatch See Detail Microbiology Microbiology Results: Microbiology 03/31/21 21:53 Blood - Venous Blood Culture - Preliminary Staphylococcus aureus Streptococcus species 03/31/21 21:53 Blood - Venous Blood Culture - Preliminary Staphylococcus aureus Streptococcus species 04/01/21 Unknown Urine clean catch - Urine fox top Urine Culture - Final Procedures Date of Service Date of Service: 04/03/21 Assessment & Plan Assessment and plan (1) Acute hyponatremia: Status: Acute (2) MELITON (acute kidney injury): Status: Acute Assessment and Plan: MELITON Due to hypoperfusion REsolving Severe hyponatremia: Resolved Sepsis in the setting of multifocal pneumonia: Right forearm lesion: Severe thrombocytopenia:/Anemia Polysubstance abuse/ opiate abuse/cocaine abuse: Elevated D-dimer: Plan Keep I > O Avoid nephrotoxins Shall follow along as needed Thanks Time Spent With Patient Time: Total time spent is greater than 50% in coordination of care (as document ed) at patient's floor/unit and/or counseling patient: Time with patient: 15 - 24 minutes Progress Note: Quality Stroke Does the patient have a stroke diagnosis?: No
--- NOTE | 2021-04-03 11:15 | MHC.CM.PN ---
CM MET W/PT TO VERIFY COVID VACCINE STATUS, PT REPRTED GETTING 2 J$J SHOTS AT [facility] IN [place], CM CONTACTED [facility] AND WAS REDIRECTED TO CALL [facility] NURSE AT [facility] LOCATION [phone], PER NURSE MACHO PT RECEIVED THE J&J VACCINE 02/16/21 AND IS NOT ELIGABLE FOR BOOSTER UNTIL Mar. CM WILL GIVE INFO TO SNFS REVIEWING WHICH INCLUDE [facility] AND [facility].
--- NOTE | 2021-04-03 11:32 | HO.PM.IMPN ---
Subjective Subjective Date of Service: 04/03/21 Interval History: Being followed for sepsis, Gram-positive bacteremia, patient complaining of anterior chest pain, as well as generalized pain and headache, feels feverish, no worsening shortness of breath, denies nausea vomiting, abdominal pain, cough is improving no bloody sputum. Review of Systems [employer] no headache, no dizziness CVS chest pain, no palpitation no urinary burning or urgency Musculoskeletal entire back pain, chest wall pain Review of Systems: Yes all other systems are reviewed and are negative Physical Exam Vital Signs: Vital Signs: Last Vital Signs Temp 98.9 F 04/03/21 08:56 Pulse 92 04/03/21 08:56 Resp 20 04/03/21 08:56 BP 124/58 L 04/03/21 08:56 Pulse Ox 95 04/03/21 08:56 BMI result Body Mass Index 24.2 General awake aler t x3, lethargic, s ick-looking Neck n o JVD. CVS? regula r rate rhythm, sys tolic murmur Respi ratory lungs clear to auscultation, diminished, no res piratory distress, no wheeze, no rho nchi. Gastrointest inal abdomen soft, nontender, bowel sounds audible, no guarding , no rig idity. Extremities no edema. Anterio r chest wall tende rness to palpation Back positive ten derness to palpati on entire spine an d paraspinal muscl es. Neuro nonfocal Right forearm lar ge area of ulcer, with raised margin s , no drainage Objective Data Active Medications Albuterol/Ipratropium (Albuterol/Iprat 2.5/0.5mg 3 Ml Ampul.Neb) 3 ml INHALE RQ6H WHILE AWAKE [facility] Last Admin: 04/03/21 07:55 Dose: 3 ml Documented by: YOLIS Albuterol/Ipratropium (Albuterol/Iprat 2.5/0.5mg 3 Ml Ampul.Neb) 3 ml INHALE RQ4H PRN PRN Reason: Shortness of Breath/Wheezing Guaifenesin (Guaifenesin 100 Mg/5 Ml Liquid) 5 ml PO Q4H PRN PRN Reason: Cough Last Admin: 04/03/21 02:03 Dose: 5 ml Documented by: BERENICE Hydroxyzine HCl (Hydroxyzine Hcl 25 Mg Tablet) 25 mg PO Q6H PRN PRN Reason: Anxiety Last Admin: 04/03/21 05:28 Dose: 25 mg Documented by: BERENICE Vancomycin HCl 1,250 mg/ (Sodium Chloride) 250 mls @ 166.667 mls/hr IV Q24H [facility] Last Infusion: 04/03/21 01:11 Dose: 0 mls/hr Documented by: BERENICE Piperacillin Sod/Tazobactam (Sod 3.375 gm/ Sodium Chloride) 50 mls @ 100 mls/hr IV Q6H [facility] Last Infusion: 04/03/21 09:13 Dose: 0 mls/hr Documented by: JOSEFA Sodium Chloride (Ns) 1,000 mls @ 150 mls/hr IVCONT .Q6H40M [facility] Last Admin: 04/03/21 09:24 Dose: 150 mls/hr Documented by: JOSEFA Melatonin (Melatonin 3 Mg Tablet) 6 mg PO BEDTIME PRN PRN Reason: Insomnia Oxycodone HCl (Oxycodone Hcl Immed Release 5 Mg Tablet) 5 mg PO Q6H PRN PRN Reason: Pain, Severe (Pain Scale 7-10) Last Admin: 04/03/21 07:51 Dose: 5 mg Documented by: VIRI Pharmacy Consult (Consult Rx Vancomycin Dosing) 1 each MISCELLANE DAILY PRN PRN Reason: Consult order Pharmacy Consult (Consult Rx Perform Med Rec) 1 each MISCELLANE ONCE PRN PRN Reason: Consult order Senna (Sennosides 8.6 Mg Tablet) 17.2 mg PO BEDTIME PRN PRN Reason: Constipation Sodium Chloride (0.9 % Sodium Chloride Flush 3 Ml Syringe) 3 ml IVFLUSH QSHIFT [facility] Last Admin: 04/03/21 07:52 Dose: 3 ml Documented by: VIRI Labs CBC & Chem 7: 04/03/21 05:15 04/03/21 05:15 Labs: Laboratory Results - last 24 hr 04/01/21 04/02/21 04/03/21 10:54 Unknown 05:15 MCV 74.6 L MCH 24.4 L MCHC 32.7 RDW 15.9 Plt Count 30 L D MPV Not Reportable Absolute Nucleated RBC 0.000 Nucleated RBC % (auto) 0.0 Anion Gap Estim Creat Clear Calc Estimated GFR Random Glucose Calcium Iron TIBC % Saturation Unsat Iron Binding Ferritin U Random Total Protein 17 H Complement C3 30 L Complement C4 7 L Blood Type Antibody Screen Crossmatch 04/03/21 04/03/21 04/03/21 05:15 05:15 09:15 MCV MCH MCHC RDW Plt Count MPV Absolute Nucleated RBC Nucleated RBC % (auto) Anion Gap 14 Estim Creat Clear Calc 90.2 Estimated GFR > 60 Random Glucose 232 H Calcium 8.1 L D Iron 59 TIBC 249 % Saturation 24 Unsat Iron Binding 190 Ferritin 328 H U Random Total Protein Complement C3 Complement C4 Blood Type O Positive Antibody Screen NEGATIVE Crossmatch See Detail Microbiology Microbiology Results: Microbiology 03/31/21 21:53 Blood Culture - Preliminary Blood - Venous Staphylococcus aureus Streptococcus species 03/31/21 21:53 Blood Culture - Preliminary Blood - Venous Staphylococcus aureus Streptococcus species 04/01/21 Unknown Urine Culture - Final Urine clean catch - Urine fox top Assessment and Plan (1) Cocaine use disorder, severe, dependence: Status: Acute (2) Opioid use disorder, severe, dependence: Status: Acute (3) Acute respiratory failure with hypoxia: Status: Acute (4) Transaminitis: Status: Acute (5) Bacteremia: Status: Acute (6) Acute hyponatremia: Status: Acute (7) MELITON (acute kidney injury): Status: Acute (8) Infective endocarditis: Status: Acute Assessment and Plan: 25-year-old female with a past medical history of right forearm cellulitis /open wound; history of IV drug abuse -abuses IV heroin and IV cocaine; presented to the hospital today with a chief complaint of shortness of breath. ?noted to have following conditions Severe sepsis with Gram-positive bacteremia, multifocal pneumonia and tricuspid valve endocarditis Complaining of generalized pain, fever likely due to endocarditis and withdrawal Blood cultures time 2 growing Staphylococcus and Streptococcus species Sepsis resolved Urine culture grew mixed bacterial antonio COVID-19 negative. No fevers, WBC and lactic acid normalized continue IV vancomycin and Zosyn day 3, follow Vanco trough Workup for DIC negative echocardiogram?showed 2.77 cm x 1.47 cm mobile mass attached to the tricuspid valve consistent with vegetation. Case discussed with ID she recommend to continue vancomycin, will follow final blood culture Will place on IV fluid due to borderline low blood pressure and lethargy follow clinical course closely. If back pain persist and localized will obtain MRI of back Endocarditis tricuspid valve Since greater than 2 cm vegetation will consult Cardiology for further recommendation Significant anemia Iron studies consistent with anemia of chronic disease, will transfuse 2 units, follow CBC, no active bleed noted. Follow stool guaiac Acute hypoxic respiratory failure Due to pneumonia/hyperreactive airway disease Continue DuoNeb standing and p.r.n. continue IV antibiotic as above, O2 support Concern for PE, CTA chest ordered Right forearm lesion:?chronic at site of prior IV drug use, has not seek medical attention Seen by wound nurse dressing applied. Severe thrombocytopenia:? Likely in the setting of sepsis and hepatitis-C Viral studies including RSV, COVID-19, rapid flu -and HIV negative Platelet 30,000,no evidence of bleeding, DIC screen negative , follow CBC Severe hyponatremia:? Likely in setting of low solute state. Normal serum osmolality, low urine osmolality, sodium improved from 123-134 MELITON:? Creatinine normalized, encourage by mouth fluid ,Avoid nephrotoxins. Nephrology following Transaminitis:? Likely due to sepsis and hepatitis C Abdominal ultrasound showed enlarged liver follow labs. No abdominal symptoms. Polysubstance abuse/ opiate abuse/cocaine abuse: ?Case discussed with Jinny Wright, started on methadone Tobacco use disorder on nicotine gum Elevated D-dimer:? Venous duplex negative V/Q scan shows intermediate probability with wide differential including PE/pneumonitis, tachycardia tachypnea resolved, mild hypoxia, echocardiogram showed no right heart strain Will obtain CTA chest due to shortness of breath and chest tightness, since platelet is trending up, will be a candidate for anticoagulation if diagnosed with PE. DVT prophylaxis:? Early ambulation Code status:? Full code Quality Stroke Does the patient have a stroke diagnosis?: No VTE Prior VTE?: No VTE Risk Level:: Medical - moderate - high VTE Device Contraindication: Treatment Not Indicated VTE Drug Contraindication: N/A - Med Ordered
[2021-04-03] MEDS: iohexoL 350 MG/ML 100 ML INFUS..BTL IV (11:47)
--- NOTE | 2021-04-03 14:21 | P.PNID_ITS ---
Subjective Subjective Date of Service: 04/03/21 Critical Care Time (minutes): 15 Comment: she has lethargy she feels ill she is getting started on Methadone Objective Data Labs CBC & Chem 7: 04/03/21 05:15 04/03/21 05:15 Labs: Laboratory Results - last 24 hr 04/02/21 04/03/21 04/03/21 Unknown 05:15 05:15 WBC 4.5 L RBC 2.87 L Hgb 7.1 L Hct 21.4 L MCV 74.6 L MCH 24.4 L MCHC 32.7 RDW 15.9 Plt Count 30 L D MPV Not Reportable Absolute Nucleated RBC 0.000 Nucleated RBC % (auto) 0.0 Sodium 137 Potassium 4.3 Chloride 109 H Carbon Dioxide 18 L Anion Gap 14 BUN 31 H Creatinine 0.73 Estim Creat Clear Calc 90.2 Estimated GFR > 60 Random Glucose 232 H Calcium 8.1 L D Iron 59 TIBC 249 % Saturation 24 Unsat Iron Binding 190 Ferritin U Random Total Protein 17 H Blood Type Antibody Screen Crossmatch 04/03/21 04/03/21 05:15 09:15 WBC RBC Hgb Hct MCV MCH MCHC RDW Plt Count MPV Absolute Nucleated RBC Nucleated RBC % (auto) Sodium Potassium Chloride Carbon Dioxide Anion Gap BUN Creatinine Estim Creat Clear Calc Estimated GFR Random Glucose Calcium Iron TIBC % Saturation Unsat Iron Binding Ferritin 328 H U Random Total Protein Blood Type O Positive Antibody Screen NEGATIVE Crossmatch See Detail Microbiology Microbiology Results: Microbiology 03/31/21 21:53 Blood - Venous Blood Culture - Preliminary Staphylococcus aureus Streptococcus species 03/31/21 21:53 Blood - Venous Blood Culture - Preliminary Staphylococcus aureus Streptococcus species 04/01/21 Unknown Urine clean catch - Urine fox top Urine Culture - Final Physical Exam Vital Signs: Vital Signs: Last Vital Signs Temp 98.6 F 04/03/21 11:43 Pulse 90 04/03/21 11:43 Resp 22 H 04/03/21 11:43 BP 135/62 04/03/21 11:43 Pulse Ox 95 04/03/21 11:43 BMI result Body Mass Index 24.2 Const: General: cooperative Resp: Effort & Inspection: normal respiratory effort Cardio: Rate: regular rate Rhythm: regular rhythm GI: Palpation (GI): Soft to palpation and nontender Skin: General skin exam: no rashes or lesions noted Assessment and Plan Assessment and plan (1) Infective endocarditis: Status: Acute Assessment and Plan: She is somewhat lethargic She has tricuspid endocarditis I have discussed with Cardiology and patient has 2.7 cm mitral vegetation but doesnt appear to be surgical case. Staph and strep possible infection Assessment and Plan: Vancomycin and Zosyn for now make sure no VRE additionally and adjust when sensis available Time Spent With Patient Time: Total time spent is greater than 50% in coordination of care (as document ed) at patient's floor/unit and/or counseling patient: Time with patient: 15 - 24 minutes
[2021-04-03] MEDS: Acetaminophen 325 MG TABLET 650 MG PO (15:44)
--- NOTE | 2021-04-03 16:31 | HO.ADDICTPRO ---
Subjective Subjective Date of Service: 04/03/21 Reason For Visit: PNA Interim History: Patient currently at 45mg methadone Appearing quite ill, increased WOB when seen by this sports writer. Reporting pain all over, especially in her chest and ribs. Sx do not seem to be related to opioid withdrawal at this time Review of Systems Acute medical concerns: Yes Medical Review of Systems: unchanged Mental Status Exam Mental Status Exam Patient Appearance: Fatigued Level of Consciousness: Lethargic Patient Behavior: Anxious Mood Description: Anxious Judgement: Fair Diagnostics Vital Signs (24Hr): Vital Signs - 24 hr 04/02/21 19:50 04/02/21 20:21 04/03/21 00:00 Temperature 97.2 F 97.8 F Pulse Rate 69 69 74 Respiratory Rate 18 18 16 Blood Pressure 118/55 L 112/55 L Pulse Oximetry 95 98 04/03/21 04:00 04/03/21 07:53 04/03/21 07:56 Temperature 97.5 F 100.0 F Pulse Rate 91 90 94 Respiratory Rate 16 21 H 26 H Blood Pressure 123/56 L 147/72 H Pulse Oximetry 96 95 04/03/21 08:56 04/03/21 11:43 Temperature 98.9 F 98.6 F Pulse Rate 92 90 Respiratory Rate 20 22 H Blood Pressure 124/58 L 135/62 Pulse Oximetry 95 95 BMI result Body Mass Index 24.2 Labs Results: 04/03/21 05:15 04/03/21 05:15 Labs: Laboratory Results - last 48 hr 04/01/21 04/01/21 04/02/21 10:54 19:15 05:18 WBC 4.6 L RBC 2.96 L Hgb 7.4 L Hct 21.7 L MCV 73.3 L MCH 25.0 L MCHC 34.1 RDW 15.6 Plt Count 22 L MPV Not Reportable Immature Gran % (Auto) Cancelled Neut % (Auto) Cancelled Lymph % (Auto) Cancelled Stanly % (Auto) Cancelled Eos % (Auto) Cancelled Baso % (Auto) Cancelled Lymph # (Auto) Cancelled Stanly # (Auto) Cancelled Eos # (Auto) Cancelled Baso # (Auto) Cancelled Abs Immat Gran (auto) Cancelled Absolute Neuts (auto) Cancelled Absolute Nucleated RBC 0.000 Nucleated RBC % (auto) 0.0 Neutrophils % (Manual) 68 Band Neutrophils % 10 H Lymphocytes % (Manual) 12 L Monocytes % (Manual) 10 Abs Neuts (Manual) 3.6 Lymphocytes # (Manual) 0.6 L Monocytes # (Manual) 0.5 Dohle Bodies PRESENT Platelet Estimate DECREASED Plt Morphology Comment NORMAL RBC Morphology NOTED Hypochromasia 1+ (5-14) Target Cells 1+ (5-14) Ovalocytes 1+ (5-14) Ross Cells 2+ (3-5) Acanthocytes (Spur) 1+ (0-2) APTT Fibrinogen Sodium 133 L Potassium 3.9 Chloride 104 Carbon Dioxide 19 L Anion Gap 14 BUN 64 H Creatinine 1.32 Estim Creat Clear Calc 49.9 Estimated GFR 50 Random Glucose 240 H Calcium 7.5 L Iron TIBC % Saturation Unsat Iron Binding Ferritin U Random Total Protein Complement C3 30 L Complement C4 7 L Blood Type Antibody Screen Crossmatch 04/02/21 04/02/21 04/02/21 05:18 05:18 Unknown WBC RBC Hgb Hct MCV MCH MCHC RDW Plt Count MPV Immature Gran % (Auto) Neut % (Auto) Lymph % (Auto) Stanly % (Auto) Eos % (Auto) Baso % (Auto) Lymph # (Auto) Stanly # (Auto) Eos # (Auto) Baso # (Auto) Abs Immat Gran (auto) Absolute Neuts (auto) Absolute Nucleated RBC Nucleated RBC % (auto) Neutrophils % (Manual) Band Neutrophils % Lymphocytes % (Manual) Monocytes % (Manual) Abs Neuts (Manual) Lymphocytes # (Manual) Monocytes # (Manual) Dohle Bodies Platelet Estimate Plt Morphology Comment RBC Morphology Hypochromasia Target Cells Ovalocytes Guin Cells Acanthocytes (Spur) APTT 25.9 Fibrinogen 554 Sodium 134 L Potassium 3.7 Chloride 108 Carbon Dioxide 17 L Anion Gap 13 BUN 60 H Creatinine 1.07 Estim Creat Clear Calc 61.5 Estimated GFR > 60 Random Glucose 270 H Calcium 7.4 L Iron TIBC % Saturation Unsat Iron Binding Ferritin U Random Total Protein 17 H Complement C3 Complement C4 Blood Type Antibody Screen Crossmatch 04/03/21 04/03/21 04/03/21 05:15 05:15 05:15 WBC 4.5 L RBC 2.87 L Hgb 7.1 L Hct 21.4 L MCV 74.6 L MCH 24.4 L MCHC 32.7 RDW 15.9 Plt Count 30 L D MPV Not Reportable Immature Gran % (Auto) Neut % (Auto) Lymph % (Auto) Stanly % (Auto) Eos % (Auto) Baso % (Auto) Lymph # (Auto) Stanly # (Auto) Eos # (Auto) Baso # (Auto) Abs Immat Gran (auto) Absolute Neuts (auto) Absolute Nucleated RBC 0.000 Nucleated RBC % (auto) 0.0 Neutrophils % (Manual) Band Neutrophils % Lymphocytes % (Manual) Monocytes % (Manual) Abs Neuts (Manual) Lymphocytes # (Manual) Monocytes # (Manual) Dohle Bodies Platelet Estimate Plt Morphology Comment RBC Morphology Hypochromasia Target Cells Ovalocytes Ross Cells Acanthocytes (Spur) APTT Fibrinogen Sodium 137 Potassium 4.3 Chloride 109 H Carbon Dioxide 18 L Anion Gap 14 BUN 31 H Creatinine 0.73 Estim Creat Clear Calc 90.2 Estimated GFR > 60 Random Glucose 232 H Calcium 8.1 L D Iron 59 TIBC 249 % Saturation 24 Unsat Iron Binding 190 Ferritin 328 H U Random Total Protein Complement C3 Complement C4 Blood Type Antibody Screen Crossmatch 04/03/21 09:15 WBC RBC Hgb Hct MCV MCH MCHC RDW Plt Count MPV Immature Gran % (Auto) Neut % (Auto) Lymph % (Auto) Stanly % (Auto) Eos % (Auto) Baso % (Auto) Lymph # (Auto) Stanly # (Auto) Eos # (Auto) Baso # (Auto) Abs Immat Gran (auto) Absolute Neuts (auto) Absolute Nucleated RBC Nucleated RBC % (auto) Neutrophils % (Manual) Band Neutrophils % Lymphocytes % (Manual) Monocytes % (Manual) Abs Neuts (Manual) Lymphocytes # (Manual) Monocytes # (Manual) Dohle Bodies Platelet Estimate Plt Morphology Comment RBC Morphology Hypochromasia Target Cells Ovalocytes Ross Cells Acanthocytes (Spur) APTT Fibrinogen Sodium Potassium Chloride Carbon Dioxide Anion Gap BUN Creatinine Estim Creat Clear Calc Estimated GFR Random Glucose Calcium Iron TIBC % Saturation Unsat Iron Binding Ferritin U Random Total Protein Complement C3 Complement C4 Blood Type O Positive Antibody Screen NEGATIVE Crossmatch See Detail Imaging Radiology Impressions: ITS Impressions Chest X-Ray 03/31/21 22:26 IMPRESSION: Patchy bilateral airspace disease, most consistent with Covid pneumonia. Abdomen Ultrasound 04/01/21 09:54 IMPRESSION: Enlarged liver. Thickened edematous gallbladder wall. No gallstones are seen. Differential would include gallbladder wall changes related to liver disease, cholangitis, low albumin, CHF, acalculous cholecystitis and pancreatitis. If there is clinical concern of acalculous cholecystitis, HIDA scan would be recommended. Limited visualization of the pancreas. Small right pleural effusion. Pulmonary Perfusion Imaging 04/01/21 13:43 IMPRESSION: Intermediate probability of pulmonary embolism. These abnormalities may be due to pulmonary emboli or severe pneumonitis, or a combination of the two. If not contraindicated, CTA pulmonary embolism protocol would be helpful in differentiating these. Chest CTA 04/03/21 11:48 IMPRESSION: Very limited exam due to artifact from respiratory motion and extensive airspace disease and adenopathy. No large or central pulmonary embolism is seen. Evaluation of the segmental and subsegmental pulmonary arteries is markedly limited. Multiple bilateral pulmonary nodules, some of which appear cavitary and areas of airspace disease or consolidation in the lower lobes suggestive of pneumonia, left greater than right. Bilateral pleural effusions left greater than right. The left pleural effusion is partially loculated. Enlarged hilar and mediastinal lymph nodes. Chest CT appearance is somewhat atypical for Covid infection. Septic emboli, granulomatous or fungal infection, vasculitis, other causes of cavitary pneumonia such as Staphylococcus and Klebsiella pneumonia and neoplasm should be also considered. Prominent liver and spleen. Right axillary lymphadenopathy. VTE: neg Medications Medications Current Medications Albuterol/Ipratropium (Albuterol/Iprat 2.5/0.5mg 3 Ml Ampul.Neb) 3 ml INHALE RQ6H WHILE AWAKE [facility] Last Admin: 04/03/21 16:02 Dose: 3 ml Documented by: Albuterol/Ipratropium (Albuterol/Iprat 2.5/0.5mg 3 Ml Ampul.Neb) 3 ml INHALE RQ4H PRN PRN Reason: Shortness of Breath/Wheezing Guaifenesin (Guaifenesin 100 Mg/5 Ml Liquid) 10 ml PO QID [facility] Hydroxyzine HCl (Hydroxyzine Hcl 25 Mg Tablet) 25 mg PO Q6H PRN PRN Reason: Anxiety Last Admin: 04/03/21 05:28 Dose: 25 mg Documented by: Vancomycin HCl 1,250 mg/ (Sodium Chloride) 250 mls @ 166.667 mls/hr IV Q24H [facility] Last Infusion: 04/03/21 01:11 Dose: Infused Documented by: Piperacillin Sod/Tazobactam (Sod 3.375 gm/ Sodium Chloride) 50 mls @ 100 mls/hr IV Q6H [facility] Last Infusion: 04/03/21 13:48 Dose: Infused Documented by: Sodium Chloride (Ns) 1,000 mls @ 150 mls/hr IVCONT .Q6H40M [facility] Last Admin: 04/03/21 15:45 Dose: Not Given Documented by: Melatonin (Melatonin 3 Mg Tablet) 6 mg PO BEDTIME PRN PRN Reason: Insomnia Methadone HCl (Methadone Hcl 20 Mg/2 Ml Oral.Conc) 45 mg PO DAILY [facility] Oxycodone HCl (Oxycodone Hcl Immed Release 5 Mg Tablet) 5 mg PO Q6H PRN PRN Reason: Pain, Severe (Pain Scale 7-10) Last Admin: 04/03/21 07:51 Dose: 5 mg Documented by: Pharmacy Consult (Consult Rx Vancomycin Dosing) 1 each MISCELLANE DAILY PRN PRN Reason: Consult order Pharmacy Consult (Consult Rx Perform Med Rec) 1 each MISCELLANE ONCE PRN PRN Reason: Consult order Senna (Sennosides 8.6 Mg Tablet) 17.2 mg PO BEDTIME PRN PRN Reason: Constipation Sodium Chloride (0.9 % Sodium Chloride Flush 3 Ml Syringe) 3 ml IVFLUSH QSHIFT [facility] Last Admin: 04/03/21 15:45 Dose: 3 ml Documented by: Allergies Allergies Allergy/AdvReac Type Severity Reaction Status Date / Time No Known Allergies Allergy Verified 05/12/20 05:11 Assessment & Plan Assessment & Plan (1) Opioid use disorder, severe, dependence: Status: Acute Code(s): F11.20 - Opioid dependence, uncomplicated Assessment and Plan: continue methadone at 45mg for now will follow up over the weekend and determine need for further dose titration discussed case with attending provider (2) Cocaine use disorder, severe, dependence: Status: Acute Code(s): F14.20 - Cocaine dependence, uncomplicated I spent __30____ minutes with the patient and/or on the patient floor today, greater than?50% of which was spent counseling/coordinating care.
[2021-04-03] MEDS: guaiFENesin 100 MG/5 ML LIQUID 10 ML PO ×2 (17:03→20:35)
--- NOTE | 2021-04-03 17:57 | PC.NURSE ---
Pt vital signs stable prior to obtaining blood. As unit of packed cells being verified, pt complaining of chills and shivering. Temp re checked, 101 oral. Packed cells returned to blood bank immediately. Dr Holt notified via tiger text. Transfusion to be held at this time. to order Tylenol and will monitor temp.
[2021-04-03 18:31] LABS: Haptoglobin 248 mg/dL (43-212)
[2021-04-03 23:48] LABS: Vancomycin Trough 3.3 mcg/mL (10.0-20.0)
[2021-04-04] VITALS (16 sets, daily range): BP systolic 116–159; BP diastolic 59–84; PULSE 69–114; RESP 16–28; TEMP 36.3–38.2; O2SAT 90–98
[2021-04-04] MEDS: oxyCODONE HCl Immed Release 5 MG TABLET PO ×2 (00:20→06:22)
[2021-04-04] MEDS: Piperacillin Sodium/Tazobactam 3.375 GM in 0.9 % Sodium Chloride 50 ML IV ×4 (00:32→18:49)
[2021-04-04] MEDS: Melatonin 3 MG TABLET 6 MG PO (01:30)
[2021-04-04] MEDS: vancomycin HCL 1,250 MG in 0.9 % Sodium Chloride 250 ML 166.67 MG IV ×3 (01:43→21:38)
[2021-04-04] MEDS: Nicotine Polacrilex 2 MG GUM BUCCAL (05:47)
[2021-04-04] MEDS: 0.9 % Sodium Chloride 1,000 ML 150 ML IVCONT (06:32)
[2021-04-04 08:32] LABS: Hemoglobin 7.7 g/dl (12.0-16.0); PLT CLUMP 1
[2021-04-04 08:33] LABS: Hematocrit 22.2 % (37.0-47.0); Mean Corpuscular HGB Conc 34.7 g/dl (31.0-35.0); Mean Corpuscular Hemoglobin 26.1 pg (27.0-33.0); Mean Corpuscular Volume 75.3 fL (80.0-98.0); Mean Platelet Volume 10.6 fL (9.4-12.3); NRBC Pct Auto 0.2 /100WBC (0.0-0.2); Red Blood Count 2.95 X10*6/uL (4.20-5.50); Red Cell Distribution Width 16.4 % (11.0-16.0)
[2021-04-04 08:46] LABS: Alanine Aminotransferase 20 U/L (0-31); Albumin Level 1.8 g/dL (3.5-5.0); Alkaline Phosphatase 101 U/L (39-117); Anion Gap 10 (12-20); Aspartate Amino Transferase 19 U/L (5-31); Bilirubin Direct 1.5 mg/dL (0.0-0.5); Bilirubin Total 2.5 mg/dL (0.0-1.0); Blood Urea Nitrogen 12 mg/dL (9-16); Calcium 7.2 mg/dL (8.4-10.2); Carbon Dioxide 18 mmol/L (22-29); Chloride 104 mmol/L (96-108); Creatinine Clr Calc Pharmacy 111.6; Estimated Glomerular Filt Rate > 60; Glucose Random 90 mg/dL (60-115); Potassium 4.2 mmol/L (3.3-5.1); Sodium 128 mmol/L (135-145); Total Protein 5.3 g/dL (6.5-8.0)
[2021-04-04 08:57] LABS: Platelet Count 39 X10*3/uL (160-400); White Blood Count 8.1 X10*3/uL (4.8-10.8)
[2021-04-04 09:01] LABS: Atypical Lymph Absolute Manual 0.1 x10*3/uL; Atypical Lymphs Percent Manual 1 % (0-6); Band Neutrophils Percent 15 % (3-5); Lymphocytes Absolute Manual 0.4 X10*3/uL (1.2-4.9); Lymphocytes Percent Manual 5 % (20-40); Metamyelocytes Absolute 0.1 X10*3/uL; Metamyelocytes Percent 1 %; Monocytes Absolute Manual 0.2 X10*3/uL (0.1-1.2); Monocytes Percent Manual 3 % (2-11); Neutrophils Absolute Manual 7.3 X10*3/uL (2.0-8.3); Neutrophils Percent Manual 75 % (45-73)
[2021-04-04 09:02] LABS: Acanthocytes 1+ (0-2) /OIF; Microcytosis 1+ (5-14) /OIF; RBC Morphology NOTED; Schistocytes 1+ (0-2) /OIF
[2021-04-04 09:03] LABS: Dohle Bodies PRESENT; Platelet Estimate DECREASED (NORMAL); Platelet Morphology Comment NORMAL
--- NOTE | 2021-04-04 09:10 | P.CONCA_ITS ---
History of Present Illness History of Present Illness Date of Service: 04/04/21 Requesting physician: Polo Holt Chief complaint: PNA, endocarditis Narrative: 25-year-old female with IV drug abuse who is presenting with pneumonia and hypoxia. Bacteremia and echocardiography is showing vegetation on tricuspid valve. She has been on antibiotics. Repeat blood cultures are pending. In a lot of chest pain which is pleuritic probably from septic emboli. Also has leg pain. It appears she has been injecting cocaine for long time. Overall quite sick. She has poor appetite. COUNT INCLUDES THE [facility] Past Medical History Medical History (Updated 04/03/21 @ 11:46 by Polo Holt MD) Bacteremia Substance abuse Family History Family history: reviewed and not pertinent Social History Social History Household Members: None Housing: Other Housing Other:: homeless but states staying with friends Do you presently have visiting nurse or other home services: No Unable to assess alcohol history related to: Unable to respond and Refusing to respond Alcohol intake: never Patient Tobacco Use Status: Current everyday Tobacco user Substance Use Type: Crack/Cocaine, Heroin, IV Drugs and Methamphetamine service: No Current occupational status: unemployed Meds Allergies Allergy/AdvReac Type Severity Reaction Status Date / Time No Known Allergies Allergy Verified 05/12/20 05:11 Active Medications: Current Medications Albuterol/Ipratropium (Albuterol/Iprat 2.5/0.5mg 3 Ml Ampul.Neb) 3 ml INHALE RQ6H WHILE AWAKE [facility] Last Admin: 04/04/21 08:37 Dose: Not Given Documented by: Albuterol/Ipratropium (Albuterol/Iprat 2.5/0.5mg 3 Ml Ampul.Neb) 3 ml INHALE RQ4H PRN PRN Reason: Shortness of Breath/Wheezing Guaifenesin (Guaifenesin 100 Mg/5 Ml Liquid) 10 ml PO QID [facility] Last Admin: 04/03/21 20:35 Dose: 10 ml Documented by: Hydroxyzine HCl (Hydroxyzine Hcl 25 Mg Tablet) 25 mg PO Q6H PRN PRN Reason: Anxiety Last Admin: 04/03/21 22:59 Dose: 25 mg Documented by: Piperacillin Sod/Tazobactam (Sod 3.375 gm/ Sodium Chloride) 50 mls @ 100 mls/hr IV Q6H [facility] Last Infusion: 04/04/21 07:40 Dose: Infused Documented by: Vancomycin HCl 1,250 mg/ (Sodium Chloride) 250 mls @ 166.667 mls/hr IV Q12H [facility] Melatonin (Melatonin 3 Mg Tablet) 6 mg PO BEDTIME PRN PRN Reason: Insomnia Last Admin: 04/04/21 01:30 Dose: 6 mg Documented by: Methadone HCl (Methadone Hcl 20 Mg/2 Ml Oral.Conc) 45 mg PO DAILY CORAZON Nicotine Polacrilex (Nicotine Polacrilex 2 Mg Gum) 2 mg BUCCAL Q2H PRN PRN Reason: Nicotine Cravings Last Admin: 04/04/21 05:47 Dose: 2 mg Documented by: Oxycodone HCl (Oxycodone Hcl Immed Release 5 Mg Tablet) 5 mg PO Q6H PRN PRN Reason: Pain, Severe (Pain Scale 7-10) Last Admin: 04/04/21 06:22 Dose: 5 mg Documented by: Pharmacy Consult (Consult Rx Vancomycin Dosing) 1 each MISCELLANE DAILY PRN PRN Reason: Consult order Pharmacy Consult (Consult Rx Perform Med Rec) 1 each MISCELLANE ONCE PRN PRN Reason: Consult order Senna (Sennosides 8.6 Mg Tablet) 17.2 mg PO BEDTIME PRN PRN Reason: Constipation Sodium Chloride (0.9 % Sodium Chloride Flush 3 Ml Syringe) 3 ml IVFLUSH QSHIFT [facility] Last Admin: 04/04/21 00:11 Dose: Not Given Documented by: Home Medications Medication Instructions Recorded Confirmed Last Taken Type No Known Home Meds 04/01/21 04/01/21 Unknown History Physical Exam Vital Signs: Vital Signs: Last Vital Signs Temp 98.3 F 04/04/21 05:50 Pulse 104 H 04/04/21 05:50 Resp 22 H 04/04/21 05:50 BP 133/67 04/04/21 05:50 Pulse Ox 92 04/04/21 00:18 BMI result Body Mass Index 24.2 GENERAL APPEARANCE: Ill-appearing. Distress due to chest pain and leg pains. NECK: no carotid bruit, no jugular venous distention. SKIN: Multiple track vergara on hands HEART: no murmurs, Tachycardia. LUNGS: Bilateral crackles.. ABDOMEN: soft, nontender. EXTREMITIES: Mild edema. PERIPHERAL PULSES: equal. NEUROLOGIC: No gross deficits, AAO X 3 Objective Labs and Meds Result diagrams: 04/04/21 08:16 04/04/21 08:16 Lab results: Laboratory Results - last 24 hr 04/01/21 04/03/21 04/03/21 10:54 09:15 21:39 WBC RBC Hgb Hct MCV MCH MCHC RDW Plt Count MPV Immature Gran % (Auto) Neut % (Auto) Lymph % (Auto) [place] % (Auto) Eos % (Auto) Baso % (Auto) Lymph # (Auto) [place] # (Auto) Eos # (Auto) Baso # (Auto) Abs Immat Gran (auto) Absolute Neuts (auto) Absolute Nucleated RBC Nucleated RBC % (auto) Neutrophils % (Manual) Band Neutrophils % Lymphocytes % (Manual) Atypical Lymphs % (Man) Monocytes % (Manual) Metamyelocytes % Abs Neuts (Manual) Lymphocytes # (Manual) Atyp Lymphs # (Manual) Monocytes # (Manual) Metamyelocytes # Dohle Bodies Platelet Estimate Plt Morphology Comment RBC Morphology Microcytosis Acanthocytes (Spur) Schistocytes Haptoglobin 248 H Sodium Potassium Chloride Carbon Dioxide Anion Gap BUN Creatinine Estim Creat Clear Calc Estimated GFR Random Glucose Calcium Total Bilirubin Direct Bilirubin AST ALT Alkaline Phosphatase Total Protein Albumin Vancomycin Trough 3.3 L Blood Type O Positive Antibody Screen NEGATIVE Crossmatch See Detail 04/04/21 04/04/21 08:16 08:16 WBC 8.1 RBC 2.95 L Hgb 7.7 L Hct 22.2 L MCV 75.3 L MCH 26.1 L MCHC 34.7 RDW 16.4 H Plt Count 39 L D MPV 10.6 Immature Gran % (Auto) Cancelled Neut % (Auto) Cancelled Lymph % (Auto) Cancelled [place] % (Auto) Cancelled Eos % (Auto) Cancelled Baso % (Auto) Cancelled Lymph # (Auto) Cancelled [place] # (Auto) Cancelled Eos # (Auto) Cancelled Baso # (Auto) Cancelled Abs Immat Gran (auto) Cancelled Absolute Neuts (auto) Cancelled Absolute Nucleated RBC 0.020 H Nucleated RBC % (auto) 0.2 Neutrophils % (Manual) 75 H Band Neutrophils % 15 H Lymphocytes % (Manual) 5 L Atypical Lymphs % (Man) 1 Monocytes % (Manual) 3 Metamyelocytes % 1 Abs Neuts (Manual) 7.3 Lymphocytes # (Manual) 0.4 L Atyp Lymphs # (Manual) 0.1 Monocytes # (Manual) 0.2 Metamyelocytes # 0.1 Dohle Bodies PRESENT Platelet Estimate DECREASED Plt Morphology Comment NORMAL RBC Morphology NOTED Microcytosis 1+ (5-14) Acanthocytes (Spur) 1+ (0-2) Schistocytes 1+ (0-2) Haptoglobin Sodium 128 L Potassium 4.2 Chloride 104 Carbon Dioxide 18 L Anion Gap 10 L BUN 12 D Creatinine 0.59 Estim Creat Clear Calc 111.6 Estimated GFR > 60 Random Glucose 90 Calcium 7.2 L D Total Bilirubin 2.5 H Direct Bilirubin 1.5 H AST 19 D ALT 20 Alkaline Phosphatase 101 Total Protein 5.3 L Albumin 1.8 L D Vancomycin Trough Blood Type Antibody Screen Crossmatch Imaging Radiologist's impression: Impressions Chest CTA 04/03/21 11:48 IMPRESSION: Very limited exam due to artifact from respiratory motion and extensive airspace disease and adenopathy. No large or central pulmonary embolism is seen. Evaluation of the segmental and subsegmental pulmonary arteries is markedly limited. Multiple bilateral pulmonary nodules, some of which appear cavitary and areas of airspace disease or consolidation in the lower lobes suggestive of pneumonia, left greater than right. Bilateral pleural effusions left greater than right. The left pleural effusion is partially loculated. Enlarged hilar and mediastinal lymph nodes. Chest CT appearance is somewhat atypical for Covid infection. Septic emboli, granulomatous or fungal infection, vasculitis, other causes of cavitary pneumonia such as Staphylococcus and Klebsiella pneumonia and neoplasm should be also considered. Prominent liver and spleen. Right axillary lymphadenopathy. VTE: neg Assessment and Plan (1) Infective endocarditis: Status: Acute 25-year-old female here for infective endocarditis involving the tricuspid valve. This is due to IV drug abuse. She is on antibiotics. A blood culture should be repeated to see if her cultures are clearing. I think the tricuspid endocarditis in her case should be medically treated 1st. There is no RV dysfunction or valve dysfunction at this point. If bacteremia does not clear then we will reassess her. I have discussed with her that this is a consequence of her IV drug use and she needs to really think about her habits going forward. Thank you for allowing me to participate in the care of your patient. Please feel free to contact me if you have any questions. Procedures Date of Service Date of Service: 04/04/21
[2021-04-04] MEDS: methADONE HCl 20 MG/2 ML ORAL.CONC 45 MG PO (09:17)
[2021-04-04] MEDS: 0.9 % Sodium Chloride Flush 3 ML SYRINGE IVFLUSH ×2 (09:18→21:38)
[2021-04-04] MEDS: guaiFENesin 100 MG/5 ML LIQUID 10 ML PO (09:30)
[2021-04-04] MEDS: guaiFEN/Codeine SF 200/20/10ML 10 ML LIQUID PO (10:49)
--- NOTE | 2021-04-04 10:53 | PM.PNNEP ---
Subjective Subjective Date of Service: 04/28/21 Interval history: Patient currently at 45mg methadone Appearing quite ill, increased WOB when seen by this technical publications writer. Reporting pain all over, especially in her chest and ribs. Sx do not seem to be related to opioid withdrawal at this time Physical Exam Vital Signs: Vital Signs: Last Vital Signs Temp 99.1 F 04/04/21 09:00 Pulse 109 H 04/04/21 09:00 Resp 22 H 04/04/21 09:00 BP 139/68 04/04/21 09:00 Pulse Ox 95 04/04/21 09:00 BMI result Body Mass Index 24.2 Const: Other: Disheveled General: alert Orientation/consciousness: patient oriented x3 Limitations: no limitations HENMT: Other: tacky mucous membranes Head: Yes normal to inspection Ears: hearing grossly normal bilaterally General nose exam: Normal external nose present Face and sinus: Yes normal facial exam Mouth: Normal oral and palatal mucosa present Throat: Yes posterior oropharynx normal Eyes: General: appearance normal, both eyes and all related structures Pupils: Equal, round and reactive pupils present Neck: Neck: Yes normal visual inspection Chest: Chest palpation & inspection: normal inspection of the chest Resp: Other: coarse breath sounds throughout tachypnea with a rate of 30 Cardio: Rate: regular rate Rhythm: regular rhythm Peripheral pulses: Peripheral pulses 2+ throughout GI: Inspection: Yes normal to inspection Palpation (GI): Soft to palpation and nontender Auscultation: normal bowel sounds Back/Spine/Pelvis: Thoracic/Lumbar Spine: thoracic and lumbar spine normal to inspection Skin: General skin exam: no rashes or lesions noted Neuro: Other: diffusely weak General: patient oriented x3, moves all extremities, normal sensation to monofilament and Unable to assess gait Cranial nerves: Yes Equal, round and reactive pupils present Cognition (Neuro): normal cognition Speech: No Abnormal speech present Gait exam (Neuro): Unable to assess gait Motor exam (neuro): 5/5 motor strength present throughout Extrem: Other: General: Yes normal to inspection, Yes no pedal edema and Yes no calf tenderness Objective Data Labs CBC & Chem 7: 04/28/21 05:30 04/28/21 05:30 Labs: Laboratory Results - last 24 hr 04/01/21 04/03/21 04/03/21 10:54 09:15 21:39 WBC RBC Hgb Hct MCV MCH MCHC RDW Plt Count MPV Immature Gran % (Auto) Neut % (Auto) Lymph % (Auto) Saline % (Auto) Eos % (Auto) Baso % (Auto) Lymph # (Auto) Saline # (Auto) Eos # (Auto) Baso # (Auto) Abs Immat Gran (auto) Absolute Neuts (auto) Absolute Nucleated RBC Nucleated RBC % (auto) Neutrophils % (Manual) Band Neutrophils % Lymphocytes % (Manual) Atypical Lymphs % (Man) Monocytes % (Manual) Metamyelocytes % Abs Neuts (Manual) Lymphocytes # (Manual) Atyp Lymphs # (Manual) Monocytes # (Manual) Metamyelocytes # Dohle Bodies Platelet Estimate Plt Morphology Comment RBC Morphology Microcytosis Acanthocytes (Spur) Schistocytes Haptoglobin 248 H Sodium Potassium Chloride Carbon Dioxide Anion Gap BUN Creatinine Estim Creat Clear Calc Estimated GFR Random Glucose Calcium Total Bilirubin Direct Bilirubin AST ALT Alkaline Phosphatase Total Protein Albumin Vancomycin Trough 3.3 L Blood Type O Positive Antibody Screen NEGATIVE Crossmatch See Detail 04/04/21 04/04/21 08:16 08:16 WBC 8.1 RBC 2.95 L Hgb 7.7 L Hct 22.2 L MCV 75.3 L MCH 26.1 L MCHC 34.7 RDW 16.4 H Plt Count 39 L D MPV 10.6 Immature Gran % (Auto) Cancelled Neut % (Auto) Cancelled Lymph % (Auto) Cancelled Saline % (Auto) Cancelled Eos % (Auto) Cancelled Baso % (Auto) Cancelled Lymph # (Auto) Cancelled Saline # (Auto) Cancelled Eos # (Auto) Cancelled Baso # (Auto) Cancelled Abs Immat Gran (auto) Cancelled Absolute Neuts (auto) Cancelled Absolute Nucleated RBC 0.020 H Nucleated RBC % (auto) 0.2 Neutrophils % (Manual) 75 H Band Neutrophils % 15 H Lymphocytes % (Manual) 5 L Atypical Lymphs % (Man) 1 Monocytes % (Manual) 3 Metamyelocytes % 1 Abs Neuts (Manual) 7.3 Lymphocytes # (Manual) 0.4 L Atyp Lymphs # (Manual) 0.1 Monocytes # (Manual) 0.2 Metamyelocytes # 0.1 Dohle Bodies PRESENT Platelet Estimate DECREASED Plt Morphology Comment NORMAL RBC Morphology NOTED Microcytosis 1+ (5-14) Acanthocytes (Spur) 1+ (0-2) Schistocytes 1+ (0-2) Haptoglobin Sodium 128 L Potassium 4.2 Chloride 104 Carbon Dioxide 18 L Anion Gap 10 L BUN 12 D Creatinine 0.59 Estim Creat Clear Calc 111.6 Estimated GFR > 60 Random Glucose 90 Calcium 7.2 L D Total Bilirubin 2.5 H Direct Bilirubin 1.5 H AST 19 D ALT 20 Alkaline Phosphatase 101 Total Protein 5.3 L Albumin 1.8 L D Vancomycin Trough Blood Type Antibody Screen Crossmatch Microbiology Microbiology Results: Microbiology 03/31/21 21:53 Blood - Venous Blood Culture - Preliminary Staphylococcus aureus Streptococcus species 03/31/21 21:53 Blood - Venous Blood Culture - Preliminary Staphylococcus aureus Streptococcus species 04/01/21 Unknown Urine clean catch - Urine fox top Urine Culture - Final Procedures Date of Service Date of Service: 04/04/21 Assessment & Plan Assessment and plan (1) Acute hyponatremia: Status: Acute (2) MELITON (acute kidney injury): Status: Acute Assessment and Plan: MELITON Due to hypoperfusion REsolving Severe hyponatremia: Resolved Sodium has dropped again Sepsis in the setting of multifocal pneumonia: Right forearm lesion: Severe thrombocytopenia:/Anemia Polysubstance abuse/ opiate abuse/cocaine abuse: Elevated D-dimer: Plan Check Urine Osm/Na Restrict PO water intake to 1L per 24 hrs Reepat Na levels (ordered) Keep I > O Avoid nephrotoxins Shall follow along as needed Thanks Time Spent With Patient Time: Total time spent is greater than 50% in coordination of care (as documented) at patient's floor/unit and/or counseling patient: Time with patient: 15 - 24 minutes Progress Note: Quality Stroke Does the patient have a stroke diagnosis?: No
--- NOTE | 2021-04-04 12:02 | PC.NURSE ---
Transport attempted to bring pt down for Ct scan, patient continued coughing fit and refused scan. pt. returned to room.
[2021-04-04] MEDS: Albumin Human 25 % 100 ML IV ×3 (12:15→23:46)
[2021-04-04] MEDS: Acetaminophen 325 MG TABLET 650 MG PO (12:36)
[2021-04-04 12:43] LABS: INTERNATIONAL NORM RATIO 1.5 (0.9-1.1); Prothrombin Time 17.5 SEC (9.9-13.0)
[2021-04-04 12:45] LABS: Partial Thromboplastin Time 27.7 SEC (24.1-38.0)
[2021-04-04 13:00] LABS: Sodium 127 mmol/L (135-145)
--- NOTE | 2021-04-04 14:09 | HO.PM.IMPN ---
Subjective Subjective Date of Service: 04/05/21 Interval History: Patient complaining of generalized pain, chest pain with coughing and deep breathing, back pain bilateral thigh pain, feel feverish, cough productive of rodriguez phlegm and blood Review of Systems [employer] no headache, no dizziness CVS? chest pain with coughing no palpitation Respiratory productive cough shortness of breath no urinary burning or urgency, no bowel bladder incontinence Musculoskeletal entire back pain, chest wall pain, leg pain Review of Systems: Yes all other systems are reviewed and are negative Physical Exam Vital Signs: Vital Signs: Last Vital Signs Temp 100.3 F 04/04/21 13:00 Pulse 95 04/04/21 13:00 Resp 28 H 04/04/21 13:00 BP 143/75 H 04/04/21 13:00 Pulse Ox 91 L 04/04/21 13:00 BMI result Body Mass Index 24.2 General awake alert x3, lethargic, sick-looking Neck no JVD. CVS? regular rate rhythm, systolic murmur Respiratory lungs clear?to auscultation,diminished, mild respiratory distress,?rhonchi Gastrointestinal abdomen soft,?non tender, bowel sounds audible, no?guarding , no rigidity. Extremities?no edema. Anterior chest wall tenderness to palpation Back generalized pain, no focal tenderness on spine Neuro nonfocal, good bilateral lower extremity sensation and strength Right forearm large area of ulcer,with raised margins , no drainage Skin petechia lower legs Objective Data Active Medications Acetaminophen (Acetaminophen 325 Mg Tablet) 650 mg PO Q6H PRN PRN Reason: Fever Last Admin: 04/04/21 12:36 Dose: 650 mg Documented by: JOSE MIGUEL Albuterol/Ipratropium (Albuterol/Iprat 2.5/0.5mg 3 Ml Ampul.Neb) 3 ml INHALE RQ6H WHILE AWAKE [facility] Last Admin: 04/04/21 08:37 Dose: Not Given Documented by: YOSVANY Non-Admin Reason: Patient Refused Albuterol/Ipratropium (Albuterol/Iprat 2.5/0.5mg 3 Ml Ampul.Neb) 3 ml INHALE RQ4H PRN PRN Reason: Shortness of Breath/Wheezing Fentanyl (Fentanyl Citrate/Pf 100 Mcg/2 Ml Vial) 50 mcg IVPUSH Q3H PRN; Protocol PRN Reason: Pain, Severe (Pain Scale 7-10) Guaifenesin/Dextromethorphan (Guaifenesin Dm 100/10/5 Ml 5 Ml Syrup) 10 ml PO QID [facility] Hydroxyzine HCl (Hydroxyzine Hcl 25 Mg Tablet) 25 mg PO Q6H PRN PRN Reason: Anxiety Last Admin: 04/03/21 22:59 Dose: 25 mg Documented by: CARMEN Piperacillin Sod/Tazobactam (Sod 3.375 gm/ Sodium Chloride) 50 mls @ 100 mls/hr IV Q6H [facility] Last Infusion: 04/04/21 07:40 Dose: 0 mls/hr Documented by: JOSE MIGUEL Vancomycin HCl 1,250 mg/ (Sodium Chloride) 250 mls @ 166.667 mls/hr IV Q12H [facility] Last Infusion: 04/04/21 13:52 Dose: 0 mls/hr Documented by: JAY Albumin Human (Kedbumin 25 %) 100 mls @ 100 mls/hr IV Q6H [facility] Stop: 04/05/21 06:59 Last Infusion: 04/04/21 13:24 Dose: 0 mls/hr Documented by: JOSE MIGUEL Melatonin (Melatonin 3 Mg Tablet) 6 mg PO BEDTIME PRN PRN Reason: Insomnia Last Admin: 04/04/21 01:30 Dose: 6 mg Documented by: CARMEN Methadone HCl (Methadone Hcl 20 Mg/2 Ml Oral.Conc) 45 mg PO DAILY [facility] Last Admin: 04/04/21 09:17 Dose: 45 mg Documented by: JOSE MIGUEL Nicotine Polacrilex (Nicotine Polacrilex 2 Mg Gum) 2 mg BUCCAL Q2H PRN PRN Reason: Nicotine Cravings Last Admin: 04/04/21 05:47 Dose: 2 mg Documented by: CARMEN Pharmacy Consult (Consult Rx Vancomycin Dosing) 1 each MISCELLANE DAILY PRN PRN Reason: Consult order Pharmacy Consult (Consult Rx Perform Med Rec) 1 each MISCELLANE ONCE PRN PRN Reason: Consult order Senna (Sennosides 8.6 Mg Tablet) 17.2 mg PO BEDTIME PRN PRN Reason: Constipation Sodium Chloride (0.9 % Sodium Chloride Flush 3 Ml Syringe) 3 ml IVFLUSH QSHIFT [facility] Last Admin: 04/04/21 09:18 Dose: 3 ml Documented by: JOSE MIGUEL Labs CBC & Chem 7: 04/05/21 08:34 04/05/21 08:34 Labs: Laboratory Results - last 24 hr 04/01/21 04/03/21 04/03/21 10:54 09:15 21:39 MCV MCH MCHC RDW Plt Count MPV Immature Gran % (Auto) Neut % (Auto) Lymph % (Auto) [place] % (Auto) Eos % (Auto) Baso % (Auto) Lymph # (Auto) [place] # (Auto) Eos # (Auto) Baso # (Auto) Abs Immat Gran (auto) Absolute Neuts (auto) Absolute Nucleated RBC Nucleated RBC % (auto) Neutrophils % (Manual) Band Neutrophils % Lymphocytes % (Manual) Atypical Lymphs % (Man) Monocytes % (Manual) Metamyelocytes % Abs Neuts (Manual) Lymphocytes # (Manual) Atyp Lymphs # (Manual) Monocytes # (Manual) Metamyelocytes # Dohle Bodies Platelet Estimate Plt Morphology Comment RBC Morphology Microcytosis Acanthocytes (Spur) Schistocytes Haptoglobin 248 H PT INR APTT Anion Gap Estim Creat Clear Calc Estimated GFR Random Glucose Calcium Total Bilirubin Direct Bilirubin AST ALT Alkaline Phosphatase Total Protein Albumin Vancomycin Trough 3.3 L Blood Type O Positive Antibody Screen NEGATIVE Crossmatch See Detail 04/04/21 04/04/21 04/04/21 08:16 08:16 12:27 MCV 75.3 L MCH 26.1 L MCHC 34.7 RDW 16.4 H Plt Count 39 L D MPV 10.6 Immature Gran % (Auto) Cancelled Neut % (Auto) Cancelled Lymph % (Auto) Cancelled [place] % (Auto) Cancelled Eos % (Auto) Cancelled Baso % (Auto) Cancelled Lymph # (Auto) Cancelled [place] # (Auto) Cancelled Eos # (Auto) Cancelled Baso # (Auto) Cancelled Abs Immat Gran (auto) Cancelled Absolute Neuts (auto) Cancelled Absolute Nucleated RBC 0.020 H Nucleated RBC % (auto) 0.2 Neutrophils % (Manual) 75 H Band Neutrophils % 15 H Lymphocytes % (Manual) 5 L Atypical Lymphs % (Man) 1 Monocytes % (Manual) 3 Metamyelocytes % 1 Abs Neuts (Manual) 7.3 Lymphocytes # (Manual) 0.4 L Atyp Lymphs # (Manual) 0.1 Monocytes # (Manual) 0.2 Metamyelocytes # 0.1 Dohle Bodies PRESENT Platelet Estimate DECREASED Plt Morphology Comment NORMAL RBC Morphology NOTED Microcytosis 1+ (5-14) Acanthocytes (Spur) 1+ (0-2) Schistocytes 1+ (0-2) Haptoglobin PT 17.5 H INR 1.5 H APTT 27.7 Anion Gap 10 L Estim Creat Clear Calc 111.6 Estimated GFR > 60 Random Glucose 90 Calcium 7.2 L D Total Bilirubin 2.5 H Direct Bilirubin 1.5 H AST 19 D ALT 20 Alkaline Phosphatase 101 Total Protein 5.3 L Albumin 1.8 L D Vancomycin Trough Blood Type Antibody Screen Crossmatch Microbiology Microbiology Results: Microbiology 03/31/21 21:53 Blood Culture - Preliminary Blood - Venous Staphylococcus aureus Streptococcus species 03/31/21 21:53 Blood Culture - Preliminary Blood - Venous Staphylococcus aureus Streptococcus species Assessment and Plan (1) Infective endocarditis: Status: Acute (2) Cocaine use disorder, severe, dependence: Status: Acute (3) Opioid use disorder, severe, dependence: Status: Acute (4) Acute respiratory failure with hypoxia: Status: Acute (5) Transaminitis: Status: Acute (6) Bacteremia: Status: Acute (7) Pneumonia: Status: Acute (8) Septic embolism: Status: Acute (9) Thrombocytopenia: Status: Acute (10) Leukocytosis: Status: Acute (11) Acute hyponatremia: Status: Acute (12) MELITON (acute kidney injury): Status: Acute (13) Hypoxia: Status: Acute (14) Pleural effusion: Status: Acute Assessment and Plan: 25-year-old female with a past medical history of right forearm cellulitis /open wound; history of IV drug abuse -abuses IV heroin and IV cocaine; presented to the hospital today with a chief complaint of shortness of breath. ?noted to have following conditions Severe sepsis with staph/strep bacteremia, multifocal pneumonia, cavitary nodules (question septic emboli )and tricuspid valve endocarditis. Complaining of generalized pain, fever , tachypneic ,tachycardia on examination WBC and lactic acid normalized on IV vancomycin and Zosyn day 4, dose of vancomycin adjusted follow Vanco trough Workup for DIC negative echocardiogram?showed??2.77 cm x 1.47 cm mobile mass attached to the tricuspid valve consistent with vegetation., case discussed with Dr. Blackwood he recommend medical management Continue close clinical follow-up, if noted to have hypoxia or respiratory distress will transfer to ICU. Generalize pain including back and anterior chest with coughing Back examination revealed no localized tenderness, nonfocal neuro examination, no bowel or bladder incontinence, steady gait Attempted MRI thoraco lumbar spine, patient declined MRI study, Continue close clinical follow-up, order imaging studies if noted to have any change in neurological status Will treat with oxycodone, IV morphine for pain control and on methadone for withdrawal Significant anemia Received 2 units of packed RBC, hematocrit remains low at 22.2 will transfuse 1 more unit Iron studies consistent with anemia of chronic disease, Acute hypoxic respiratory failure Due to pneumonia/bilateral cavitary nodules Continue DuoNeb standing and p.r.n. continue IV antibiotic as above, O2 support CTA chest showed no PE but showed significant bilateral pneumonia cavitary nodules and bilateral effusion, loculated small left effusion Case discussed with thoracic surgery on 04/03 they reviewed the CTA and feels effusion is small for tap, case discussed with IR at [facility] they also felt the same, therefore will repeat chest x-ray on Tuesday if noted to have worsening loculated left effusion will proceed with thoracocentesis. Hypoalbuminemia Will give IV albumin q.6 hours, add Ensure supplement follow labs Right forearm lesion:?chronic at site of prior IV drug use, has not seek medical attention Seen by wound nurse dressing applied. Severe thrombocytopenia:? Likely in the setting of sepsis and hepatitis-C Viral studies including RSV, COVID-19, rapid flu -and HIV negative, DC screen negative Platelet improved to 39,000, noted to have mild hemoptysis, follow CBC Repeat PT and PTT stable Severe hyponatremia:? Likely in setting of low solute state. Normal serum osmolality, low urine osmolality, sodium dropped to 127 MELITON:? Creatinine normalized, encourage by mouth fluid ,Avoid nephrotoxins. Nephrology following Transaminitis:? Noted to have elevated total and direct bili, likely due to blood transfusion/hemolysis AST and ALT improved Abdominal ultrasound showed enlarged liver follow labs.? No abdominal symptoms. Polysubstance abuse/ opiate abuse/cocaine abuse: ?Seen by Addiction Team, Jinny Wright, started on methadone dose gradually uptitrated to 45 Tobacco use disorder? on nicotine gum Elevated D-dimer:? Venous duplex negative V/Q scan shows intermediate probability with wide differential including PE/pneumonitis,echocardiogram showed no right heart strain CTA chest showed no PE DVT prophylaxis:? Early ambulation Code status:? Full code Quality Stroke Does the patient have a stroke diagnosis?: No VTE Prior VTE?: No VTE Risk Level:: Medical - moderate - high VTE Device Contraindication: Treatment Not Indicated VTE Drug Contraindication: N/A - Med Ordered
[2021-04-04 14:16] LABS: Osmolality, Serum 273 mosm/kg (281-305)
--- NOTE | 2021-04-04 14:26 | MHC.RECOVSUP ---
Recovery Support note: Patient is a 25 year old [place]ian speaking female who [place] [facility] [place] due to multiple symptoms including weakness, chest pain and leg pain. Patient reported substance use prior to arrival. This loan underwriter met with patient to discuss withdrawal symptoms. Patient was asleep in room 380-1 and awoke briefly when this loan underwriter spoke her name. Patient reports withdrawal symptoms and states she would like a higher methadone dose. Patient was unable to specify withdrawal symptoms and fell back asleep. Discussed case with Jinny Wright NP.
[2021-04-04] MEDS: Albuterol/Iprat 2.5/0.5MG 3 ML AMPUL.NEB INHALE ×2 (14:48→20:24)
[2021-04-04] MEDS: guaiFENesin DM 100/10/5 ML 5 ML SYRUP 10 ML PO ×2 (17:38→20:50)
[2021-04-04] MEDS: Morphine Sulfate 4 MG/ML CARTRIDGE 3 MG IVPUSH ×2 (18:49→23:03)
[2021-04-04] MEDS: Morphine Sulfate 2 MG/ML CARTRIDGE 1 MG IVPUSH (20:23)
--- NOTE | 2021-04-04 22:36 | PC.NURSE ---
2020 pt's respirations 40,02 sats 88% on3L,02 increased to 4L sats up to 90%. notified and in to see pt .medicated with morphine 1mg iv x1 ,updraft treatment given and portable cxr ordered.
[2021-04-05] VITALS (8 sets, daily range): BP systolic 125–133; BP diastolic 60–87; PULSE 100–116; RESP 16–24; TEMP 36.8–37.6; O2SAT 93–96
[2021-04-05] MEDS: Piperacillin Sodium/Tazobactam 3.375 GM in 0.9 % Sodium Chloride 50 ML IV ×3 (01:41→12:29)
[2021-04-05] MEDS: Morphine Sulfate 4 MG/ML CARTRIDGE 3 MG IVPUSH ×2 (03:00→07:18)
[2021-04-05] MEDS: Albumin Human 25 % 100 ML IV (05:27)
[2021-04-05] MEDS: 0.9 % Sodium Chloride Flush 3 ML SYRINGE IVFLUSH ×3 (07:20→21:19)
[2021-04-05 08:49] LABS: Hematocrit 21.8 % (37.0-47.0); Hemoglobin 7.5 g/dl (12.0-16.0); Mean Corpuscular HGB Conc 34.4 g/dl (31.0-35.0); Mean Corpuscular Hemoglobin 27.1 pg (27.0-33.0); Mean Corpuscular Volume 78.7 fL (80.0-98.0); Mean Platelet Volume 11.2 fL (9.4-12.3); Red Blood Count 2.77 X10*6/uL (4.20-5.50); Red Cell Distribution Width 17.1 % (11.0-16.0); White Blood Count 9.8 X10*3/uL (4.8-10.8)
[2021-04-05 09:06] LABS: Platelet Count 56 X10*3/uL (160-400)
[2021-04-05 09:08] LABS: Vancomycin Trough 19.5 mcg/mL (10.0-20.0)
[2021-04-05 09:09] LABS: Band Neutrophils Percent 14 % (3-5); Lymphocytes Absolute Manual 0.7 X10*3/uL (1.2-4.9); Lymphocytes Percent Manual 7 % (20-40); Metamyelocytes Absolute 0.2 X10*3/uL; Metamyelocytes Percent 2 %; Monocytes Absolute Manual 0.5 X10*3/uL (0.1-1.2); Monocytes Percent Manual 5 % (2-11); Neutrophils Absolute Manual 8.4 X10*3/uL (2.0-8.3); Neutrophils Percent Manual 72 % (45-73)
[2021-04-05 09:10] LABS: Hypochromasia 2+ (15-30) /OIF; Polychromasia 1+ (0-2) /OIF; RBC Morphology NOTED
[2021-04-05 09:11] LABS: Anion Gap 15 (12-20); Blood Urea Nitrogen 14 mg/dL (9-16); Calcium 7.8 mg/dL (8.4-10.2); Carbon Dioxide 17 mmol/L (22-29); Chloride 103 mmol/L (96-108); Creatinine Clr Calc Pharmacy 76.6; Estimated Glomerular Filt Rate > 60; Glucose Random 90 mg/dL (60-115); Platelet Estimate DECREASED (NORMAL); Platelet Morphology Comment NORMAL; Potassium 4.5 mmol/L (3.3-5.1); Sodium 130 mmol/L (135-145)
[2021-04-05 09:12] LABS: Toxic Vacuolation PRESENT
[2021-04-05] MEDS: Albuterol/Iprat 2.5/0.5MG 3 ML AMPUL.NEB INHALE (09:37)
--- NOTE | 2021-04-05 09:46 | HE.PHANOTE ---
Patients trough yesterday was 3.3 and had markedly improved renal function, increased dose to 1250 mg q12 based on clinical indication and predicted auc. Patients renal function worsened and had a trough of 19.5. Holding doses until 04/06 @0800, having a random level drawn tonight @1999 Vijaya Lee PharmD BCPS
[2021-04-05] MEDS: methADONE HCl 20 MG/2 ML ORAL.CONC 45 MG PO (09:53)
[2021-04-05] MEDS: Benzonatate 100 MG CAPSULE PO (09:54)
--- NOTE | 2021-04-05 11:43 | P.PNNP_ITS ---
Subjective Subjective Date of Service: 04/28/21 Interval history: Events noted Physical Exam Vital Signs: Vital Signs: Last Vital Signs Temp 98.7 F 04/05/21 07:00 Pulse 112 H 04/05/21 09:37 Resp 16 04/05/21 09:37 BP 131/73 04/05/21 07:00 Pulse Ox 96 04/05/21 07:00 BMI result Body Mass Index 24.2 Const: Other: Disheveled General: alert Orientation/consciousness: patient oriented x3 Limitations: no limitations HENMT: Other: tacky mucous membranes Head: Yes normal to inspection Ears: hearing grossly normal bilaterally General nose exam: Normal external nose present Face and sinus: Yes normal facial exam Mouth: Normal oral and palatal mucosa present Throat: Yes posterior oropharynx normal Eyes: General: appearance normal, both eyes and all related structures Pupils: Equal, round and reactive pupils present Neck: Neck: Yes normal visual inspection Chest: Chest palpation & inspection: normal inspection of the chest Resp: Other: coarse breath sounds throughout tachypnea with a rate of 30 Cardio: Rate: regular rate Rhythm: regular rhythm Peripheral pulses: Peripheral pulses 2+ throughout GI: Inspection: Yes normal to inspection Palpation (GI): Soft to palpation and nontender Auscultation: normal bowel sounds Back/Spine/Pelvis: Thoracic/Lumbar Spine: thoracic and lumbar spine normal to inspection Skin: General skin exam: no rashes or lesions noted Neuro: Other: diffusely weak General: patient oriented x3, moves all extremit ies, normal sensation to monofilament and Unable to assess gait Cranial nerves: Yes Equal, round and reactive pupils present Cognition (Neuro): no rmal cognition Speech: No Abnormal speech present Gait exam (Neuro): Unable to assess gait Motor exam (neuro): 5/5 motor strength present throughout Extrem: Other: General: Yes normal to inspection, Yes no pedal edema and Yes no calf tenderness Objective Data Labs CBC & Chem 7: 04/28/21 05:30 04/28/21 05:30 Labs: Laboratory Results - last 24 hr 04/03/21 04/04/21 04/04/21 09:15 12:27 12:27 WBC RBC Hgb Hct MCV MCH MCHC RDW Plt Count MPV Immature Gran % (Auto) Neut % (Auto) Lymph % (Auto) [place] % (Auto) Eos % (Auto) Baso % (Auto) Lymph # (Auto) [place] # (Auto) Eos # (Auto) Baso # (Auto) Abs Immat Gran (auto) Absolute Neuts (auto) Absolute Nucleated RBC Nucleated RBC % (auto) Neutrophils % (Manual) Band Neutrophils % Lymphocytes % (Manual) Monocytes % (Manual) Metamyelocytes % Abs Neuts (Manual) Lymphocytes # (Manual) Monocytes # (Manual) Metamyelocytes # Toxic Vacuolation Platelet Estimate Plt Morphology Comment RBC Morphology Polychromasia Hypochromasia PT INR APTT Sodium 127 L Potassium Chloride Carbon Dioxide Anion Gap BUN Creatinine Estim Creat Clear Calc Estimated GFR Random Glucose Osmolality 273 L Calcium Vancomycin Trough Blood Type O Positive Antibody Screen NEGATIVE Crossmatch See Detail 04/04/21 04/05/21 04/05/21 12:27 08:34 08:34 WBC 9.8 RBC 2.77 L Hgb 7.5 L Hct 21.8 L MCV 78.7 L MCH 27.1 MCHC 34.4 RDW 17.1 H Plt Count 56 L D MPV 11.2 Immature Gran % (Auto) Cancelled Neut % (Auto) Cancelled Lymph % (Auto) Cancelled [place] % (Auto) Cancelled Eos % (Auto) Cancelled Baso % (Auto) Cancelled Lymph # (Auto) Cancelled [place] # (Auto) Cancelled Eos # (Auto) Cancelled Baso # (Auto) Cancelled Abs Immat Gran (auto) Cancelled Absolute Neuts (auto) Cancelled Absolute Nucleated RBC 0.000 Nucleated RBC % (auto) 0.0 Neutrophils % (Manual) 72 Band Neutrophils % 14 H Lymphocytes % (Manual) 7 L Monocytes % (Manual) 5 Metamyelocytes % 2 Abs Neuts (Manual) 8.4 H Lymphocytes # (Manual) 0.7 L Monocytes # (Manual) 0.5 Metamyelocytes # 0.2 Toxic Vacuolation PRESENT Platelet Estimate DECREASED Plt Morphology Comment NORMAL RBC Morphology NOTED Polychromasia 1+ (0-2) Hypochromasia 2+ (15-30) PT 17.5 H INR 1.5 H APTT 27.7 Sodium Potassium Chloride Carbon Dioxide Anion Gap BUN Creatinine Estim Creat Clear Calc Estimated GFR Random Glucose Osmolality Calcium Vancomycin Trough 19.5 Blood Type Antibody Screen Crossmatch 04/05/21 08:34 WBC RBC Hgb Hct MCV MCH MCHC RDW Plt Count MPV Immature Gran % (Auto) Neut % (Auto) Lymph % (Auto) [place] % (Auto) Eos % (Auto) Baso % (Auto) Lymph # (Auto) [place] # (Auto) Eos # (Auto) Baso # (Auto) Abs Immat Gran (auto) Absolute Neuts (auto) Absolute Nucleated RBC Nucleated RBC % (auto) Neutrophils % (Manual) Band Neutrophils % Lymphocytes % (Manual) Monocytes % (Manual) Metamyelocytes % Abs Neuts (Manual) Lymphocytes # (Manual) Monocytes # (Manual) Metamyelocytes # Toxic Vacuolation Platelet Estimate Plt Morphology Comment RBC Morphology Polychromasia Hypochromasia PT INR APTT Sodium 130 L Potassium 4.5 Chloride 103 Carbon Dioxide 17 L Anion Gap 15 BUN 14 Creatinine 0.86 Estim Creat Clear Calc 76.6 Estimated GFR > 60 Random Glucose 90 Osmolality Calcium 7.8 L D Vancomycin Trough Blood Type Antibody Screen Crossmatch Microbiology Microbiology Results: Microbiology 03/31/21 21:53 Blood - Venous Blood Culture - Final Staphylococcus aureus Strep dysgalactiae ssp equisim 03/31/21 21:53 Blood - Venous Blood Culture - Final Staphylococcus aureus Strep dysgalactiae ssp equisim 04/01/21 Unknown Urine clean catch - Urine fox top Urine Culture - Final Procedures Date of Service Date of Service: 04/05/21 Assessment & Plan Assessment and plan (1) Acute hyponatremia: Status: Acute (2) MELITON (acute kidney injury): Status: Acute Assessment and Plan: MELITON Due to hypoperfusion REsolving Severe hyponatremia: Resolved Sodium has dropped again 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
--- NOTE | 2021-04-05 12:07 | HO.ADDICTPRO ---
Subjective Subjective Date of Service: 04/05/21 Reason For Visit: PNA, endocarditis Interim History: Patient appearing less lethargic this morning. Awake, alert, sitting up in bed. Still visibly uncomfortable and ill appearing. Reporting pain in back and chest. Denies nausea, loose stools. Some anxiety Review of Systems Constitutional: Reports as per HPI, Reports body ache(s), Reports chills, Reports malaise and Reports weakness Reports weakness Mental Status Exam Mental Status Exam Patient Appearance: Appropriate Patient Orientation: Person, Place, Time and Situation Level of Consciousness: Awake and Appropriate Patient Behavior: Appropriate and Cooperative Mood Description: Appropriate and Flat Affect Description: Blunted Thought Process: Intact Judgement: Fair Diagnostics Vital Signs (24Hr): Vital Signs - 24 hr 04/04/21 13:00 04/04/21 14:14 04/04/21 14:48 Temperature 100.3 F 99.7 F Pulse Rate 95 91 91 Respiratory Rate 28 H 24 H 16 Blood Pressure 143/75 H Pulse Oximetry 91 L 98 04/04/21 15:01 04/04/21 15:19 04/04/21 17:37 Temperature 99.7 F 99.4 F 97.4 F Pulse Rate 98 69 94 Respiratory Rate 20 20 20 Blood Pressure 120/62 127/61 116/59 L Pulse Oximetry 04/04/21 18:00 04/04/21 20:05 04/04/21 20:25 Temperature 98.4 F Pulse Rate 107 H 108 H Respiratory Rate 22 H 19 18 Blood Pressure 127/76 Pulse Oximetry 90 L 04/04/21 23:49 04/05/21 03:00 04/05/21 07:00 Temperature 98.4 F 98.5 F 98.7 F Pulse Rate 114 H 116 H 112 H Respiratory Rate 18 20 24 H Blood Pressure 142/82 H 131/87 131/73 Pulse Oximetry 93 94 96 04/05/21 07:18 04/05/21 09:37 Temperature Pulse Rate 112 H Respiratory Rate 20 16 Blood Pressure Pulse Oximetry BMI result Body Mass Index 24.2 Labs Results: 04/05/21 08:34 04/05/21 08:34 Labs: Laboratory Results - last 48 hr 04/01/21 04/03/21 04/03/21 10:54 09:15 21:39 WBC RBC Hgb Hct MCV MCH MCHC RDW Plt Count MPV Immature Gran % (Auto) Neut % (Auto) Lymph % (Auto) [place] % (Auto) Eos % (Auto) Baso % (Auto) Lymph # (Auto) [place] # (Auto) Eos # (Auto) Baso # (Auto) Abs Immat Gran (auto) Absolute Neuts (auto) Absolute Nucleated RBC Nucleated RBC % (auto) Neutrophils % (Manual) Band Neutrophils % Lymphocytes % (Manual) Atypical Lymphs % (Man) Monocytes % (Manual) Metamyelocytes % Abs Neuts (Manual) Lymphocytes # (Manual) Atyp Lymphs # (Manual) Monocytes # (Manual) Metamyelocytes # Toxic Vacuolation Dohle Bodies Platelet Estimate Plt Morphology Comment RBC Morphology Polychromasia Hypochromasia Microcytosis Acanthocytes (Spur) Schistocytes Haptoglobin 248 H PT INR APTT Sodium Potassium Chloride Carbon Dioxide Anion Gap BUN Creatinine Estim Creat Clear Calc Estimated GFR Random Glucose Osmolality Calcium Total Bilirubin Direct Bilirubin AST ALT Alkaline Phosphatase Total Protein Albumin Vancomycin Trough 3.3 L Blood Type O Positive Antibody Screen NEGATIVE Crossmatch See Detail 04/04/21 04/04/21 04/04/21 08:16 08:16 12:27 WBC 8.1 RBC 2.95 L Hgb 7.7 L Hct 22.2 L MCV 75.3 L MCH 26.1 L MCHC 34.7 RDW 16.4 H Plt Count 39 L D MPV 10.6 Immature Gran % (Auto) Cancelled Neut % (Auto) Cancelled Lymph % (Auto) Cancelled [place] % (Auto) Cancelled Eos % (Auto) Cancelled Baso % (Auto) Cancelled Lymph # (Auto) Cancelled [place] # (Auto) Cancelled Eos # (Auto) Cancelled Baso # (Auto) Cancelled Abs Immat Gran (auto) Cancelled Absolute Neuts (auto) Cancelled Absolute Nucleated RBC 0.020 H Nucleated RBC % (auto) 0.2 Neutrophils % (Manual) 75 H Band Neutrophils % 15 H Lymphocytes % (Manual) 5 L Atypical Lymphs % (Man) 1 Monocytes % (Manual) 3 Metamyelocytes % 1 Abs Neuts (Manual) 7.3 Lymphocytes # (Manual) 0.4 L Atyp Lymphs # (Manual) 0.1 Monocytes # (Manual) 0.2 Metamyelocytes # 0.1 Toxic Vacuolation Dohle Bodies PRESENT Platelet Estimate DECREASED Plt Morphology Comment NORMAL RBC Morphology NOTED Polychromasia Hypochromasia Microcytosis 1+ (5-14) Acanthocytes (Spur) 1+ (0-2) Schistocytes 1+ (0-2) Haptoglobin PT INR APTT Sodium 128 L 127 L Potassium 4.2 Chloride 104 Carbon Dioxide 18 L Anion Gap 10 L BUN 12 D Creatinine 0.59 Estim Creat Clear Calc 111.6 Estimated GFR > 60 Random Glucose 90 Osmolality Calcium 7.2 L D Total Bilirubin 2.5 H Direct Bilirubin 1.5 H AST 19 D ALT 20 Alkaline Phosphatase 101 Total Protein 5.3 L Albumin 1.8 L D Vancomycin Trough Blood Type Antibody Screen Crossmatch 04/04/21 04/04/21 04/05/21 12:27 12:27 08:34 WBC RBC Hgb Hct MCV MCH MCHC RDW Plt Count MPV Immature Gran % (Auto) Neut % (Auto) Lymph % (Auto) [place] % (Auto) Eos % (Auto) Baso % (Auto) Lymph # (Auto) [place] # (Auto) Eos # (Auto) Baso # (Auto) Abs Immat Gran (auto) Absolute Neuts (auto) Absolute Nucleated RBC Nucleated RBC % (auto) Neutrophils % (Manual) Band Neutrophils % Lymphocytes % (Manual) Atypical Lymphs % (Man) Monocytes % (Manual) Metamyelocytes % Abs Neuts (Manual) Lymphocytes # (Manual) Atyp Lymphs # (Manual) Monocytes # (Manual) Metamyelocytes # Toxic Vacuolation Dohle Bodies Platelet Estimate Plt Morphology Comment RBC Morphology Polychromasia Hypochromasia Microcytosis Acanthocytes (Spur) Schistocytes Haptoglobin PT 17.5 H INR 1.5 H APTT 27.7 Sodium Potassium Chloride Carbon Dioxide Anion Gap BUN Creatinine Estim Creat Clear Calc Estimated GFR Random Glucose Osmolality 273 L Calcium Total Bilirubin Direct Bilirubin AST ALT Alkaline Phosphatase Total Protein Albumin Vancomycin Trough 19.5 Blood Type Antibody Screen Crossmatch 04/05/21 04/05/21 08:34 08:34 WBC 9.8 RBC 2.77 L Hgb 7.5 L Hct 21.8 L MCV 78.7 L MCH 27.1 MCHC 34.4 RDW 17.1 H Plt Count 56 L D MPV 11.2 Immature Gran % (Auto) Cancelled Neut % (Auto) Cancelled Lymph % (Auto) Cancelled [place] % (Auto) Cancelled Eos % (Auto) Cancelled Baso % (Auto) Cancelled Lymph # (Auto) Cancelled [place] # (Auto) Cancelled Eos # (Auto) Cancelled Baso # (Auto) Cancelled Abs Immat Gran (auto) Cancelled Absolute Neuts (auto) Cancelled Absolute Nucleated RBC 0.000 Nucleated RBC % (auto) 0.0 Neutrophils % (Manual) 72 Band Neutrophils % 14 H Lymphocytes % (Manual) 7 L Atypical Lymphs % (Man) Monocytes % (Manual) 5 Metamyelocytes % 2 Abs Neuts (Manual) 8.4 H Lymphocytes # (Manual) 0.7 L Atyp Lymphs # (Manual) Monocytes # (Manual) 0.5 Metamyelocytes # 0.2 Toxic Vacuolation PRESENT Dohle Bodies Platelet Estimate DECREASED Plt Morphology Comment NORMAL RBC Morphology NOTED Polychromasia 1+ (0-2) Hypochromasia 2+ (15-30) Microcytosis Acanthocytes (Spur) Schistocytes Haptoglobin PT INR APTT Sodium 130 L Potassium 4.5 Chloride 103 Carbon Dioxide 17 L Anion Gap 15 BUN 14 Creatinine 0.86 Estim Creat Clear Calc 76.6 Estimated GFR > 60 Random Glucose 90 Osmolality Calcium 7.8 L D Total Bilirubin Direct Bilirubin AST ALT Alkaline Phosphatase Total Protein Albumin Vancomycin Trough Blood Type Antibody Screen Crossmatch Imaging Radiology Impressions: ITS Impressions Chest X-Ray 03/31/21 22:26 IMPRESSION: Patchy bilateral airspace disease, most consistent with Covid pneumonia. Abdomen Ultrasound 04/01/21 09:54 IMPRESSION: Enlarged liver. Thickened edematous gallbladder wall. No gallstones are seen. Differential would include gallbladder wall changes related to liver disease, cholangitis, low albumin, CHF, acalculous cholecystitis and pancreatitis. If there is clinical concern of acalculous cholecystitis, HIDA scan would be recommended. Limited visualization of the pancreas. Small right pleural effusion. Pulmonary Perfusion Imaging 04/01/21 13:43 IMPRESSION: Intermediate probability of pulmonary embolism. These abnormalities may be due to pulmonary emboli or severe pneumonitis, or a combination of the two. If not contraindicated, CTA pulmonary embolism protocol would be helpful in differentiating these. Chest CTA 04/03/21 11:48 IMPRESSION: Very limited exam due to artifact from respiratory motion and extensive airspace disease and adenopathy. No large or central pulmonary embolism is seen. Evaluation of the segmental and subsegmental pulmonary arteries is markedly limited. Multiple bilateral pulmonary nodules, some of which appear cavitary and areas of airspace disease or consolidation in the lower lobes suggestive of pneumonia, left greater than right. Bilateral pleural effusions left greater than right. The left pleural effusion is partially loculated. Enlarged hilar and mediastinal lymph nodes. Chest CT appearance is somewhat atypical for Covid infection. Septic emboli, granulomatous or fungal infection, vasculitis, other causes of cavitary pneumonia such as Staphylococcus and Klebsiella pneumonia and neoplasm should be also considered. Prominent liver and spleen. Right axillary lymphadenopathy. VTE: neg Chest X-Ray 04/04/21 20:32 IMPRESSION: Worsening bilateral pulmonary opacities Small to moderate left effusion is minimally increased in size. Medications Medications Current Medications Acetaminophen (Acetaminophen 325 Mg Tablet) 650 mg PO Q6H PRN PRN Reason: Fever Last Admin: 04/04/21 12:36 Dose: 650 mg Documented by: Albuterol/Ipratropium (Albuterol/Iprat 2.5/0.5mg 3 Ml Ampul.Neb) 3 ml INHALE RQ6H WHILE AWAKE [facility] Last Admin: 04/05/21 09:37 Dose: 3 ml Documented by: Albuterol/Ipratropium (Albuterol/Iprat 2.5/0.5mg 3 Ml Ampul.Neb) 3 ml INHALE RQ4H PRN PRN Reason: Shortness of Breath/Wheezing Benzonatate (Benzonatate 100 Mg Capsule) 100 mg PO TID PRN PRN Reason: Cough Last Admin: 04/05/21 09:54 Dose: 100 mg Documented by: Guaifenesin/Dextromethorphan (Guaifenesin Dm 200/20/10 Ml 10 Ml Syrup) 10 ml PO QID [facility] Hydroxyzine HCl (Hydroxyzine Hcl 25 Mg Tablet) 25 mg PO Q6H PRN PRN Reason: Anxiety Last Admin: 04/03/21 22:59 Dose: 25 mg Documented by: Piperacillin Sod/Tazobactam (Sod 3.375 gm/ Sodium Chloride) 50 mls @ 100 mls/hr IV Q6H [facility] Last Infusion: 04/05/21 07:14 Dose: Infused Documented by: Vancomycin HCl 750 mg/ Sodium (Chloride) 265 mls @ 265 mls/hr IV Q12H [facility] Melatonin (Melatonin 3 Mg Tablet) 6 mg PO BEDTIME PRN PRN Reason: Insomnia Last Admin: 04/04/21 01:30 Dose: 6 mg Documented by: Methadone HCl (Methadone Hcl 20 Mg/2 Ml Oral.Conc) 50 mg PO ONCE ONE Stop: 04/06/21 08:01 Morphine Sulfate (Morphine Sulfate 4 Mg/Ml Cartridge) 4 mg IVPUSH Q4H PRN; Protocol PRN Reason: Pain, Severe (Pain Scale 7-10) Nicotine Polacrilex (Nicotine Polacrilex 2 Mg Gum) 2 mg BUCCAL Q2H PRN PRN Reason: Nicotine Cravings Last Admin: 04/04/21 05:47 Dose: 2 mg Documented by: Oxycodone HCl (Oxycodone Hcl Immed Release 5 Mg Tablet) 5 mg PO Q4H PRN PRN Reason: Pain, Moderate (Pain Scale 4-6 Pharmacy Consult (Consult Rx Vancomycin Dosing) 1 each MISCELLANE DAILY PRN PRN Reason: Consult order Pharmacy Consult (Consult Rx Perform Med Rec) 1 each MISCELLANE ONCE PRN PRN Reason: Consult order Senna (Sennosides 8.6 Mg Tablet) 17.2 mg PO BEDTIME PRN PRN Reason: Constipation Sodium Chloride (0.9 % Sodium Chloride Flush 3 Ml Syringe) 3 ml IVFLUSH QSHIFT [facility] Last Admin: 04/05/21 07:20 Dose: 3 ml Documented by: Allergies Allergies Allergy/AdvReac Type Severity Reaction Status Date / Time No Known Allergies Allergy Verified 05/12/20 05:11 Assessment & Plan Assessment & Plan (1) Opioid use disorder, severe, dependence: Status: Acute Code(s): F11.20 - Opioid dependence, uncomplicated Assessment and Plan: Increase methadone to 50mg tomorrow morning Continue to treat pain as necessary Monitor for oversedation Discussed plan with attending provider will follow up tomorrow I spent ___20___ minutes with the patient and/or on the patient floor today, greater than?50% of which was spent counseling/coordinating care.
[2021-04-05] MEDS: Morphine Sulfate 4 MG/ML CARTRIDGE IVPUSH ×3 (12:28→22:30)
[2021-04-05] MEDS: guaiFENesin DM 200/20/10 ML 10 ML SYRUP PO ×3 (12:41→21:19)
--- NOTE | 2021-04-05 14:36 | P.PNIM_ITS ---
Subjective Subjective Date of Service: 04/05/21 Interval History: Patient more awake alert today complaining of persistent generalized pain,cough productive of bloody sputum, no overnight fevers or chills. Review of Systems [employer] no headache no dizziness CVS chest pain with coughing GI no nausea no vomiting no diarrhea Skin no new rash Review of Systems: Yes all other systems are reviewed and are negative Physical Exam Vital Signs: Vital Signs: Last Vital Signs Temp 98.2 F 04/05/21 11:00 Pulse 114 H 04/05/21 11:00 Resp 18 04/05/21 11:00 BP 125/64 04/05/21 11:00 Pulse Ox 93 04/05/21 11:00 BMI result Body Mass Index 24.2 General awake alert x3, tachypnea Neck no JVD. CVS? regular rate rhythm, systolic murmur Respiratory lungs bilateral basilar rhonchi, mild respiratory distress,? Gastrointestinal abdomen soft,?non tender, bowel sounds audible, no?guarding , no rigidity. Extremities?no edema. Anterior chest wall tenderness to palpation Back no focal tenderness on spine Neuro nonfocal, good bilateral lower extremity sensation and strength Right forearm large area of ulcer,with raised margins , no drainage Skin petechia lower legs fading ? Objective Data Active Medications Acetaminophen (Acetaminophen 325 Mg Tablet) 650 mg PO Q6H PRN PRN Reason: Fever Last Admin: 04/04/21 12:36 Dose: 650 mg Documented by: JOSE MIGUEL Albuterol/Ipratropium (Albuterol/Iprat 2.5/0.5mg 3 Ml Ampul.Neb) 3 ml INHALE RQ6H WHILE AWAKE [facility], [facility]1983 Last Admin: 04/05/21 14:27 Dose: Not Given Documented by: YOLIS Non-Admin Reason: Patient Refused Albuterol/Ipratropium (Albuterol/Iprat 2.5/0.5mg 3 Ml Ampul.Neb) 3 ml INHALE RQ4H PRN PRN Reason: Shortness of Breath/Wheezing Benzonatate (Benzonatate 100 Mg Capsule) 100 mg PO TID PRN PRN Reason: Cough Last Admin: 04/05/21 09:54 Dose: 100 mg Documented by: JOSE MIGUEL Guaifenesin/Dextromethorphan (Guaifenesin Dm 200/20/10 Ml 10 Ml Syrup) 10 ml PO QID [facility] Last Admin: 04/05/21 12:41 Dose: 10 ml Documented by: JAY Hydroxyzine HCl (Hydroxyzine Hcl 25 Mg Tablet) 25 mg PO Q6H PRN PRN Reason: Anxiety Last Admin: 04/03/21 22:59 Dose: 25 mg Documented by: CARMEN Piperacillin Sod/Tazobactam (Sod 3.375 gm/ Sodium Chloride) 50 mls @ 100 mls/hr IV Q6H [facility] Last Infusion: 04/05/21 13:40 Dose: 0 mls/hr Documented by: JOSE MIGUEL Vancomycin HCl 750 mg/ Sodium (Chloride) 265 mls @ 265 mls/hr IV Q12H [place] Melatonin (Melatonin 3 Mg Tablet) 6 mg PO BEDTIME PRN PRN Reason: Insomnia Last Admin: 04/04/21 01:30 Dose: 6 mg Documented by: CARMEN Methadone HCl (Methadone Hcl 20 Mg/2 Ml Oral.Conc) 50 mg PO ONCE ONE Stop: 04/06/21 08:01 Morphine Sulfate (Morphine Sulfate 4 Mg/Ml Cartridge) 4 mg IVPUSH Q4H PRN; Protocol PRN Reason: Pain, Severe (Pain Scale 7-10) Last Admin: 04/05/21 12:28 Dose: 4 mg Documented by: JAY Nicotine Polacrilex (Nicotine Polacrilex 2 Mg Gum) 2 mg BUCCAL Q2H PRN PRN Reason: Nicotine Cravings Last Admin: 04/04/21 05:47 Dose: 2 mg Documented by: CARMEN Oxycodone HCl (Oxycodone Hcl Immed Release 5 Mg Tablet) 5 mg PO Q4H PRN PRN Reason: Pain, Moderate (Pain Scale 4-6 Pharmacy Consult (Consult Rx Vancomycin Dosing) 1 each MISCELLANE DAILY PRN PRN Reason: Consult order Pharmacy Consult (Consult Rx Perform Med Rec) 1 each MISCELLANE ONCE PRN PRN Reason: Consult order Senna (Sennosides 8.6 Mg Tablet) 17.2 mg PO BEDTIME PRN PRN Reason: Constipation Sodium Chloride (0.9 % Sodium Chloride Flush 3 Ml Syringe) 3 ml IVFLUSH QSHIFT [facility] Last Admin: 04/05/21 07:20 Dose: 3 ml Documented by: JOSE MIGUEL Labs CBC & Chem 7: 04/05/21 08:34 04/05/21 08:34 Labs: Laboratory Results - last 24 hr 04/03/21 04/05/21 04/05/21 09:15 08:34 08:34 MCV 78.7 L MCH 27.1 MCHC 34.4 RDW 17.1 H Plt Count 56 L D MPV 11.2 Immature Gran % (Auto) Cancelled Neut % (Auto) Cancelled Lymph % (Auto) Cancelled [place] % (Auto) Cancelled Eos % (Auto) Cancelled Baso % (Auto) Cancelled Lymph # (Auto) Cancelled [place] # (Auto) Cancelled Eos # (Auto) Cancelled Baso # (Auto) Cancelled Abs Immat Gran (auto) Cancelled Absolute Neuts (auto) Cancelled Absolute Nucleated RBC 0.000 Nucleated RBC % (auto) 0.0 Neutrophils % (Manual) 72 Band Neutrophils % 14 H Lymphocytes % (Manual) 7 L Monocytes % (Manual) 5 Metamyelocytes % 2 Abs Neuts (Manual) 8.4 H Lymphocytes # (Manual) 0.7 L Monocytes # (Manual) 0.5 Metamyelocytes # 0.2 Toxic Vacuolation PRESENT Platelet Estimate DECREASED Plt Morphology Comment NORMAL RBC Morphology NOTED Polychromasia 1+ (0-2) Hypochromasia 2+ (15-30) Anion Gap Estim Creat Clear Calc Estimated GFR Random Glucose Calcium Vancomycin Trough 19.5 Blood Type O Positive Antibody Screen NEGATIVE Crossmatch See Detail 04/05/21 08:34 MCV MCH MCHC RDW Plt Count MPV Immature Gran % (Auto) Neut % (Auto) Lymph % (Auto) [place] % (Auto) Eos % (Auto) Baso % (Auto) Lymph # (Auto) [place] # (Auto) Eos # (Auto) Baso # (Auto) Abs Immat Gran (auto) Absolute Neuts (auto) Absolute Nucleated RBC Nucleated RBC % (auto) Neutrophils % (Manual) Band Neutrophils % Lymphocytes % (Manual) Monocytes % (Manual) Metamyelocytes % Abs Neuts (Manual) Lymphocytes # (Manual) Monocytes # (Manual) Metamyelocytes # Toxic Vacuolation Platelet Estimate Plt Morphology Comment RBC Morphology Polychromasia Hypochromasia Anion Gap 15 Estim Creat Clear Calc 76.6 Estimated GFR > 60 Random Glucose 90 Calcium 7.8 L D Vancomycin Trough Blood Type Antibody Screen Crossmatch Microbiology Microbiology Results: Microbiology 03/31/21 21:53 Blood Culture - Final Blood - Venous Staphylococcus aureus Strep dysgalactiae ssp equisim 03/31/21 21:53 Blood Culture - Final Blood - Venous Staphylococcus aureus Strep dysgalactiae ssp equisim Assessment and Plan (1) Pleural effusion: Status: Acute (2) Septic embolism: Status: Acute (3) Infective endocarditis: Status: Acute (4) Cocaine use disorder, severe, dependence: Status: Acute (5) Opioid use disorder, severe, dependence: Status: Acute (6) Acute respiratory failure with hypoxia: Status: Acute (7) Transaminitis: Status: Acute (8) Bacteremia: Status: Acute (9) Acute hyponatremia: Status: Acute (10) Leukocytosis: Status: Acute (11) Pneumonia: Status: Acute (12) Thrombocytopenia: Status: Acute (13) Anemia: Status: Acute Assessment and Plan: 25-year-old female with a past medical history of right forearm cellulitis /open wound; history of IV drug abuse -abuses IV heroin and IV cocaine; presented to the hospital today with a chief complaint of shortness of breath. ?noted to have following conditions Severe sepsis with staph/strep bacteremia, multifocal pneumonia, cavitary nodules (question septic emboli )and tricuspid valve endocarditis. Clinically improving no fevers, persistent generalized pain, tachypnea and tachycardia WBC and lactic acid normalized on IV vancomycin day 5 will DC Zosyn follow Vanco trough Workup for DIC negative echocardiogram?showed??2.77 cm x 1.47 cm mobile mass attached to the tricuspid valve consistent with vegetation., case discussed with Dr. Blackwood he recommend medical management Continue close clinical follow-up, if noted to have hypoxia or respiratory distress will transfer to ICU. Generalize pain including back and anterior chest with coughing Back examination revealed no localized tenderness, nonfocal neuro examination, no bowel or bladder incontinence, steady gait Attempted MRI thoraco lumbar spine, patient declined MRI study, Continue close clinical follow-up, order imaging studies if noted to have any change in neurological status Continue oxycodone, IV morphine for pain control and on methadone for withdrawal Significant anemia Received 3 units of packed RBC, hematocrit remains low but stable Iron studies consistent with anemia of chronic disease, Acute hypoxic respiratory failure Due to pneumonia/bilateral cavitary nodules Continue DuoNeb standing and p.r.n. continue IV antibiotic as above, O2 support CTA chest showed no PE but showed significant bilateral pneumonia cavitary nodules and bilateral effusion, loculated small left effusion Case discussed with thoracic surgery on 04/03 they reviewed the CTA and feels effusion is small for tap, case discussed with IR at [facility] they also felt the same, therefore will repeat chest x-ray on Tuesday if noted to have worsening loculated left effusion will proceed with thoracocentesis. Hypoalbuminemia On IV albumin q.6 hours x4 dosage, Ensure supplement follow labs Right forearm lesion:?chronic at site of prior IV drug use, has not seek medical attention Seen by wound nurse dressing applied. Severe thrombocytopenia:? Likely in the setting of sepsis and hepatitis-C Viral studies including RSV, COVID-19, rapid flu -and HIV negative, DC screen negative Platelet improved to 56,000, noted to have mild hemoptysis, follow CBC Repeat PT and PTT stable Severe hyponatremia:? Likely in setting of low solute state. Normal serum osmolality, low urine osmolality, sodium 130 MELITON:? Creatinine normalized, encourage by mouth fluid ,Avoid nephrotoxins. Nephrology following Transaminitis:? Noted to have elevated total and direct bili, likely due to blood transfusion/hemolysis AST and ALT improved Abdominal ultrasound showed enlarged liver follow labs.? No abdominal symptoms. Polysubstance abuse/ opiate abuse/cocaine abuse: ?Seen by Addiction Team, Jinny Wright, started on methadone dose gradually uptitrated to 45 Tobacco use disorder? on nicotine gum Elevated D-dimer:? Venous duplex negative V/Q scan shows intermediate probability CTA chest showed no PE DVT prophylaxis:? Early ambulation Code status:? Full code Quality Stroke Does the patient have a stroke diagnosis?: No VTE Prior VTE?: No VTE Risk Level:: Medical - moderate - high VTE Device Contraindication: Treatment Not Indicated VTE Drug Contraindication: N/A - Med Ordered
[2021-04-05] MEDS: oxyCODONE HCl Immed Release 5 MG TABLET PO (15:50)
[2021-04-05] MEDS: vancomycin HCL 750 MG in 0.9 % Sodium Chloride 250 ML 265 MG IV (21:19)
[2021-04-06] VITALS (8 sets, daily range): BP systolic 124–135; BP diastolic 65–82; PULSE 92–114; RESP 17–28; TEMP 36.5–37.3; O2SAT 94–98
[2021-04-06] MEDS: Morphine Sulfate 4 MG/ML CARTRIDGE IVPUSH ×4 (02:32→20:12)
[2021-04-06 04:54] LABS: Hematocrit 21.9 % (37.0-47.0); Hemoglobin 7.2 g/dl (12.0-16.0); Mean Corpuscular HGB Conc 32.9 g/dl (31.0-35.0); Mean Corpuscular Hemoglobin 26.5 pg (27.0-33.0); Mean Corpuscular Volume 80.5 fL (80.0-98.0); Mean Platelet Volume 10.1 fL (9.4-12.3); Red Blood Count 2.72 X10*6/uL (4.20-5.50); Red Cell Distribution Width 18.3 % (11.0-16.0); White Blood Count 10.1 X10*3/uL (4.8-10.8)
[2021-04-06 05:00] LABS: Platelet Count 57 X10*3/uL (160-400)
[2021-04-06 05:33] LABS: Alanine Aminotransferase 10 U/L (0-31); Albumin Level 2.4 g/dL (3.5-5.0); Alkaline Phosphatase 68 U/L (39-117); Anion Gap 12 (12-20); Aspartate Amino Transferase 15 U/L (5-31); Bilirubin Direct 0.7 mg/dL (0.0-0.5); Bilirubin Total 1.1 mg/dL (0.0-1.0); Blood Urea Nitrogen 18 mg/dL (9-16); Calcium 7.8 mg/dL (8.4-10.2); Carbon Dioxide 18 mmol/L (22-29); Chloride 104 mmol/L (96-108); Creatinine Clr Calc Pharmacy 62.1; Estimated Glomerular Filt Rate > 60; Glucose Random 108 mg/dL (60-115); Potassium 4.4 mmol/L (3.3-5.1); Sodium 130 mmol/L (135-145); Total Protein 6.1 g/dL (6.5-8.0)
[2021-04-06] MEDS: Albuterol/Iprat 2.5/0.5MG 3 ML AMPUL.NEB INHALE ×2 (07:31→19:57)
[2021-04-06] MEDS: guaiFENesin DM 200/20/10 ML 10 ML SYRUP PO ×4 (08:00→20:13)
[2021-04-06] MEDS: methADONE HCl 20 MG/2 ML ORAL.CONC 50 MG PO (08:00)
[2021-04-06] MEDS: 0.9 % Sodium Chloride Flush 3 ML SYRINGE IVFLUSH ×3 (08:00→20:13)
[2021-04-06] MEDS: vancomycin HCL 750 MG in 0.9 % Sodium Chloride 250 ML 265 MG IV (10:36)
--- NOTE | 2021-04-06 11:01 | MHC.RECOVRN ---
Met with pt for check in. Pt sitting in the middle of the bed, eyes closed and arousable to voice. Pt drowsy during conversation, frequently closing eyes and slumping forward. Pt reports desire to increase methadone due to anxiety and back pain. T/w informed pt that [facility] is unable to release ID due to pt being discharged from their program. Pt wishes to attempt to re-establish care there as opposed to [facility] in [place]. T/w to follow up with [facility].
--- NOTE | 2021-04-06 11:17 | MHC.RECOVRN ---
Spoke with Sarah at [facility] admission's office. Pt able to resume care, [facility] updated on patient's methadone dose as well as medical admission. [facility] to be called at [phone] when discharge plan is in place. Pt will then be given an appointment and instructions on transfer of care.
--- NOTE | 2021-04-06 11:34 | HO.PM.IMPN ---
Subjective Subjective Date of Service: 04/06/21 Interval History: Still c/o back pain, refuses MRI Ongoing cough, dyspnea No fever Review of Systems Review of Systems: Yes all other systems are reviewed and are negative Physical Exam Vital Signs: Vital Signs: Last Vital Signs Temp 98.5 F 04/06/21 07:00 Pulse 92 04/06/21 07:32 Resp 18 04/06/21 07:32 BP 129/75 04/06/21 07:00 Pulse Ox 94 04/06/21 07:00 BMI result Body Mass Index 24.2 Gen: ill-appearing HEENT: sclera anicteric, moist mucus membranes Neck: supple Lungs: diminished L>R base Heart: regular rate and rhythm, systolic murmur along LSB Abd: soft, non-tender, non-distended Ext: no edema Skin: warm/well-perfused, R forearm ulcer with raised margins without drainage Neuro: alert and oriented x3, no focal findings Psych: restricted affect Objective Data Active Medications Acetaminophen (Acetaminophen 325 Mg Tablet) 650 mg PO Q6H PRN PRN Reason: Fever Last Admin: 04/04/21 12:36 Dose: 650 mg Documented by: JOSE MIGUEL Albuterol/Ipratropium (Albuterol/Iprat 2.5/0.5mg 3 Ml Ampul.Neb) 3 ml INHALE RQ6H WHILE AWAKE [facility] Last Admin: 04/06/21 07:31 Dose: 3 ml Documented by: TRAVIS Albuterol/Ipratropium (Albuterol/Iprat 2.5/0.5mg 3 Ml Ampul.Neb) 3 ml INHALE RQ4H PRN PRN Reason: Shortness of Breath/Wheezing Benzonatate (Benzonatate 100 Mg Capsule) 100 mg PO TID PRN PRN Reason: Cough Last Admin: 04/05/21 09:54 Dose: 100 mg Documented by: JOSE MIGUEL Guaifenesin/Dextromethorphan (Guaifenesin Dm 200/20/10 Ml 10 Ml Syrup) 10 ml PO QID [facility] Last Admin: 04/06/21 08:00 Dose: 10 ml Documented by: NICOLA Hydroxyzine HCl (Hydroxyzine Hcl 25 Mg Tablet) 25 mg PO Q6H PRN PRN Reason: Anxiety Last Admin: 04/03/21 22:59 Dose: 25 mg Documented by: CARMEN Vancomycin HCl 750 mg/ Sodium (Chloride) 265 mls @ 265 mls/hr IV Q12H [facility] Last Admin: 04/06/21 10:36 Dose: 265 mls/hr Documented by: JOSEFA Melatonin (Melatonin 3 Mg Tablet) 6 mg PO BEDTIME PRN PRN Reason: Insomnia Last Admin: 04/04/21 01:30 Dose: 6 mg Documented by: CARMEN Morphine Sulfate (Morphine Sulfate 4 Mg/Ml Cartridge) 4 mg IVPUSH Q4H PRN; Protocol PRN Reason: Pain, Severe (Pain Scale 7-10) Last Admin: 04/06/21 06:30 Dose: 4 mg Documented by: CARMEN Nicotine Polacrilex (Nicotine Polacrilex 2 Mg Gum) 2 mg BUCCAL Q2H PRN PRN Reason: Nicotine Cravings Last Admin: 04/04/21 05:47 Dose: 2 mg Documented by: CARMEN Oxycodone HCl (Oxycodone Hcl Immed Release 5 Mg Tablet) 5 mg PO Q4H PRN PRN Reason: Pain, Moderate (Pain Scale 4-6 Last Admin: 04/05/21 15:50 Dose: 5 mg Documented by: JOSE MIGUEL Pharmacy Consult (Consult Rx Vancomycin Dosing) 1 each MISCELLANE DAILY PRN PRN Reason: Consult order Pharmacy Consult (Consult Rx Perform Med Rec) 1 each MISCELLANE ONCE PRN PRN Reason: Consult order Senna (Sennosides 8.6 Mg Tablet) 17.2 mg PO BEDTIME PRN PRN Reason: Constipation Sodium Chloride (0.9 % Sodium Chloride Flush 3 Ml Syringe) 3 ml IVFLUSH QSHIFT [facility] Last Admin: 04/06/21 08:00 Dose: 3 ml Documented by: NICOLA Labs CBC & Chem 7: 04/06/21 04:35 04/06/21 04:35 Labs: Laboratory Results - last 24 hr 04/05/21 04/06/21 04/06/21 19:48 04:35 04:35 MCV 80.5 MCH 26.5 L MCHC 32.9 RDW 18.3 H Plt Count 57 L MPV 10.1 Absolute Nucleated RBC 0.000 Nucleated RBC % (auto) 0.0 Anion Gap 12 Estim Creat Clear Calc 62.1 Estimated GFR > 60 Random Glucose 108 Calcium 7.8 L Total Bilirubin 1.1 H Direct Bilirubin 0.7 H AST 15 ALT 10 Alkaline Phosphatase 68 D Total Protein 6.1 L Albumin 2.4 L D Random Vancomycin 10.0 L Microbiology Microbiology Results: Microbiology 03/31/21 21:53 Blood Culture - Final Blood - Venous Staphylococcus aureus Strep dysgalactiae ssp equisim 03/31/21 21:53 Blood Culture - Final Blood - Venous Staphylococcus aureus Strep dysgalactiae ssp equisim Assessment and Plan (1) Pleural effusion: Status: Acute (2) Septic embolism: Status: Acute (3) Infective endocarditis: Status: Acute (4) Cocaine use disorder, severe, dependence: Status: Acute (5) Opioid use disorder, severe, dependence: Status: Acute (6) Acute respiratory failure with hypoxia: Status: Acute (7) Transaminitis: Status: Acute (8) Bacteremia: Status: Acute (9) Acute hyponatremia: Status: Acute (10) Leukocytosis: Status: Acute (11) Pneumonia: Status: Acute (12) Thrombocytopenia: Status: Acute (13) Anemia: Status: Acute Assessment and Plan: hospital d#7 25yo F with history of IV heroin + cocaine abuse, recent RUE cellulitis with open wound p/w SOB admitted for severe sepsis, found to be bacteremic with TV endocarditis and cavitary septic emboli + loculated pleural effusion # loculated L pleural effusion - Pulm + Thoracic consults; effusion growing in size; discuss tube thoracostomy with IR + send fluid for routine studies + cultures # severe sepsis # MSSA + Streptococcus dysgalactiae [equis group] bacteremia/infective endocarditis [2.77 x 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] # multifocal pneumonia with cavitary septic emboli - WBC and lactate normalized, continue vancomycin d#6, total 42d after culture clearanance- check surveillance BCx tomorrow and if negative @ 48h place PICC - non-surgical management per Cardiology # acute hypoxic respiratory failure - wean O2 as tolerated # thrombocytopenia - likely due to sepsis + HCV, improving # MAT-associated wound - geography faculty member consulted # back pain - no focal neurologic signs, pt declines MRI of spine, continue to monitor - oxycodone + morphine prn # MELITON - SCr normalized, avoid nephrotoxins + continue to monitor # hypoNa - mild, 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 # transaminasemia - resolved, likely due to sepsis # anemia of chronic inflammation - Hb stable, received 3u of pRBCs 04/03/21 # HCV - Ab positive, viral load pending; HBV immune; HIV negative # opioid use disorder - continue methadone, Addiction Medicine following # cocaine abuse - prn hydroxyzine, CARE Team # tobacco abuse - NRT # protein-calorie malnutrition - Ensure supplementation # VTE ppx - SCDs Quality Stroke Does the patient have a stroke diagnosis?: No VTE Prior VTE?: No VTE Risk Level:: Medical - moderate - high VTE Device Contraindication: Treatment Not Indicated VTE Drug Contraindication: N/A - Med Ordered
[2021-04-06 13:21] LABS: Anti Glomerular Basement Memb <1.0 AI; Myeloperoxidase Antibody <1.0 AI; Proteinase 3 PR3 Antibodies <1.0 AI
--- NOTE | 2021-04-06 15:07 | PM.CNGS ---
History of Present Illness Consult details Consult date: 04/06/21 Reason for consult: other Requesting physician: Yaz Morgan / [facility] Narrative: Patient is a 25-year-old female with a past medical history of IVDA with heroin and cocaine who presented to [facility] with right upper extremity cellulitis and open wound. She was admitted for severe sepsis, found to be bacteremic with MSSA tricuspid valve endocarditis for which Cardiology is following , multifocal pneumonia, cavitary septic emboli bilaterally with a large loculated left-sided pleural effusion for which thoracic surgery was consulted for. Upon my interview with patient she denies any acute shortness of breath at rest however does admit to some dyspnea on exertion and cough which is productive of green/blood-tinged sputum. Her WBC has normalized and is continuing on vancomycin. Patient has been NPO since this morning for planned left-sided chest tube insertion to be performed by Interventional Radiology however during my interview with patient she states that she is refusing to have any procedures performed today because she would like to eat and claims that she is open to having this procedure performed tomorrow. I educated the patient on the importance of having this procedure done as soon as possible in hopes of avoiding a larger VATS mechanical decortication however patient is continuing to and adamantly refusing any procedures today. Review of Systems Constitutional: Constitutional: Denies chills and Denies fever(s) Eyes: Eyes: Denies change in vision ENT: Denies dysphagia, Denies vertigo, Denies dizziness, Denies sore throat and Denies throat swelling Cardiovascular: Cardiovascular: Denies chest pain, Denies syncope and Denies lightheadedness Respiratory: Respiratory: Reports as per HPI Gastrointestinal: Gastrointestinal: Denies abdominal pain and Denies dysphagia Genitourinary: Genitourinary: Denies difficulty voiding and Denies dysuria Neurologic: Denies vertigo, Denies dizziness and Denies syncope Allergic/Immunologic: Allergic/Immunologic: Denies throat swelling PMFSH Past Medical History Medical History (Updated 04/04/21 @ 14:17 by Polo Holt MD) Bacteremia Substance abuse Family History Family history: reviewed and not pertinent Social History Social History Household Members: None Housing: Other Housing Other:: homeless but states staying with friends Do you presently have visiting nurse or other home services: No Unable to assess alcohol history related to: Unable to respond and Refusing to respond Alcohol intake: never Patient Tobacco Use Status: Current everyday Tobacco user Substance Use Type: Crack/Cocaine, Heroin, IV Drugs and Methamphetamine service: No Current occupational status: unemployed Meds Allergies Allergy/AdvReac Type Severity Reaction Status Date / Time No Known Allergies Allergy Verified 05/12/20 05:11 Active Medications: Current Medications Acetaminophen (Acetaminophen 325 Mg Tablet) 650 mg PO Q6H PRN PRN Reason: Fever Last Admin: 04/04/21 12:36 Dose: 650 mg Documented by: Albuterol/Ipratropium (Albuterol/Iprat 2.5/0.5mg 3 Ml Ampul.Neb) 3 ml INHALE RQ6H WHILE AWAKE [facility] Last Admin: 04/06/21 15:00 Dose: Not Given Documented by: Albuterol/Ipratropium (Albuterol/Iprat 2.5/0.5mg 3 Ml Ampul.Neb) 3 ml INHALE RQ4H PRN PRN Reason: Shortness of Breath/Wheezing Benzonatate (Benzonatate 100 Mg Capsule) 100 mg PO TID PRN PRN Reason: Cough Last Admin: 04/05/21 09:54 Dose: 100 mg Documented by: Guaifenesin/Dextromethorphan (Guaifenesin Dm 200/20/10 Ml 10 Ml Syrup) 10 ml PO QID [facility] Last Admin: 04/06/21 13:02 Dose: 10 ml Documented by: Hydroxyzine HCl (Hydroxyzine Hcl 25 Mg Tablet) 25 mg PO Q6H PRN PRN Reason: Anxiety Last Admin: 04/03/21 22:59 Dose: 25 mg Documented by: Vancomycin HCl 750 mg/ Sodium (Chloride) 265 mls @ 265 mls/hr IV Q12H [facility] Last Infusion: 04/06/21 12:11 Dose: Infused Documented by: Melatonin (Melatonin 3 Mg Tablet) 6 mg PO BEDTIME PRN PRN Reason: Insomnia Last Admin: 04/04/21 01:30 Dose: 6 mg Documented by: Morphine Sulfate (Morphine Sulfate 4 Mg/Ml Cartridge) 4 mg IVPUSH Q4H PRN; Protocol PRN Reason: Pain, Severe (Pain Scale 7-10) Last Admin: 04/06/21 06:30 Dose: 4 mg Documented by: Nicotine Polacrilex (Nicotine Polacrilex 2 Mg Gum) 2 mg BUCCAL Q2H PRN PRN Reason: Nicotine Cravings Last Admin: 04/04/21 05:47 Dose: 2 mg Documented by: Oxycodone HCl (Oxycodone Hcl Immed Release 5 Mg Tablet) 5 mg PO Q4H PRN PRN Reason: Pain, Moderate (Pain Scale 4-6 Last Admin: 04/05/21 15:50 Dose: 5 mg Documented by: Pharmacy Consult (Consult Rx Vancomycin Dosing) 1 each MISCELLANE DAILY PRN PRN Reason: Consult order Pharmacy Consult (Consult Rx Perform Med Rec) 1 each MISCELLANE ONCE PRN PRN Reason: Consult order Senna (Sennosides 8.6 Mg Tablet) 17.2 mg PO BEDTIME PRN PRN Reason: Constipation Sodium Chloride (0.9 % Sodium Chloride Flush 3 Ml Syringe) 3 ml IVFLUSH QSHIFT [facility] Last Admin: 04/06/21 08:00 Dose: 3 ml Documented by: Home Medications Medication Instructions Recorded Confirmed Last Taken Type No Known Home Meds 04/01/21 04/01/21 Unknown History Physical Exam Vital Signs: Vital Signs: Last Vital Signs Temp 98.5 F 04/06/21 11:00 Pulse 104 H 04/06/21 11:00 Resp 21 H 04/06/21 11:00 BP 135/70 04/06/21 11:00 Pulse Ox 96 04/06/21 11:00 BMI result Body Mass Index 24.2 Const: General: no acute distress, alert, awake and ill appearing Nutritional Appearance: overweight Orientation/consciousness: patient oriented x3 HENMT: Head: Yes normal to inspection, Yes normocephalic and Yes atraumatic Eyes: General: appearance normal, both eyes and all related structures Conjunctivae: conjunctivae normal Sclerae: sclerae normal Neck: Neck: Yes trachea midline and Yes no JVD Chest: Chest palpation & inspection: normal inspection of the chest Resp: Other: Breath sounds clear along right side of chest wall anterior and posteriorly however decreased along left-sided chest wall. No adventitious sounds wheezes or rhonchi noted. Effort & Inspection: normal respiratory effort, able to speak in complete sentences and Actively coughing Cardio: Jugular venous distension: no JVD Rate: regular rate Rhythm: regular rhythm Heart sounds: S1 normal heart sound present and S2 normal heart sound present GI: Inspection: Yes normal to inspection Palpation (GI): Soft to palpation and nontender Auscultation: normal bowel sounds Neuro: General: patient oriented x3 Results Labs Result diagrams: 04/06/21 04:35 04/06/21 04:35 Labs: Abnormal lab results 04/05/21 04/06/21 04/06/21 Range/Units 19:48 04:35 04:35 RBC 2.72 L (4.20-5.50) X10*6/uL Hgb 7.2 L (12.0-16.0) g/dl Hct 21.9 L (37.0-47.0) % MCH 26.5 L (27.0-33.0) pg RDW 18.3 H (11.0-16.0) % Plt Count 57 L (160-400) X10*3/uL Sodium 130 L (135-145) mmol/L Carbon Dioxide 18 L (22-29) mmol/L BUN 18 H (9-16) mg/dL Calcium 7.8 L (8.4-10.2) mg/dL Total Bilirubin 1.1 H (0.0-1.0) mg/dL Direct Bilirubin 0.7 H (0.0-0.5) mg/dL Total Protein 6.1 L (6.5-8.0) g/dL Albumin 2.4 L D (3.5-5.0) g/dL Random Vancomycin 10.0 L (15-20) mcg/mL Short CBC 04/06/21 Range/Units 04:35 WBC 10.1 (4.8-10.8) X10*3/uL Hgb 7.2 L (12.0-16.0) g/dl Hct 21.9 L (37.0-47.0) % Plt Count 57 L (160-400) X10*3/uL BMP 04/06/21 04:35 Sodium 130 L Potassium 4.4 Chloride 104 Carbon Dioxide 18 L BUN 18 H Creatinine 1.06 Calcium 7.8 L Liver Function 04/06/21 Range/Units 04:35 Total Bilirubin 1.1 H (0.0-1.0) mg/dL Direct Bilirubin 0.7 H (0.0-0.5) mg/dL AST 15 (5-31) U/L ALT 10 (0-31) U/L Alkaline Phosphatase 68 D (39-117) U/L Albumin 2.4 L D (3.5-5.0) g/dL Urine 04/01/21 04/01/21 Range/Units 01:58 01:58 Urine Color YELLOW Urine Appearance HAZY Urine pH 5.5 (5.0-8.0) Ur Specific [place] 1.025 (1.005-1.025) Urine Protein TRACE (NEG-TRACE) MG/DL Urine Glucose (UA) NEG (NEG) MG/DL Urine Test NEGATIVE (NEGATIVE) All other labs normal. Imaging CT scan - chest: report reviewed and image reviewed Assessment and Plan (1) Pleural effusion: Status: Acute Patient is a 25-year-old female with a past medical history of IVDA with heroin and cocaine abuse who presents to [facility] with right upper extremity cellulitis and open wound. She was admitted for severe sepsis found to be bacteremic with MSSA, tricuspid valve endocarditis for which Cardiology is following, multifocal pneumonia, cavitary septic emboli bilaterally with moderate loculated left-sided pleural effusion which has increased in size since previous exam. Recommend interventional radiology placement of left-sided pigtail catheter into loculated pleural effusion. A pigtail catheter placement would have to be placed by Interventional Radiology under imaging guidance because a pigtail catheter to work properly must be inserted into area of the loculation and not blindly placed to ensure proper drainage and optimal placement for possible tPA administration. Once pigtail catheter is placed chest tube should be placed on -20 low wall suction. Pleural fluid should be sent for culture and analysis. A morning chest x-ray should be obtained to after pigtail insertion to evaluate response. Depending on pleural fluid drainage and follow-up chest x-ray after pigtail placement is performed would plan for possible tPA administration via chest tube into pleural cavity over the course of 3 days for chemical decortication. A follow-up chest CT would then be performed to evaluate if patient would need further surgical intervention such as mechanical decortication. Procedures Date of Service Date of Service: 04/06/21
--- NOTE | 2021-04-06 16:14 | HO.ADDICTPRO ---
Subjective Subjective Date of Service: 04/06/21 Reason For Visit: PNA, endocarditis Interim History: patient seen in follow up Methadone increased to 50mg today. Patient somewhat challenging to evaluate as she provided minimal answers and was a bit annoyed lunch was not there yet (it was 11am) She denies withdrawal symptoms, though still reporting pain and SOB with any activity including talking. She is currently ordered morphine 4mg q4PRN and percocet 5mg Review of Systems Constitutional: Reports as per HPI Mental Status Exam Mental Status Exam Patient Appearance: Appropriate Patient Orientation: Person, Place, Time and Situation Level of Consciousness: Awake and Appropriate Patient Behavior: Appropriate and Cooperative Mood Description: Appropriate and Flat Affect Description: Blunted Thought Process: Intact Judgement: Fair Diagnostics Vital Signs (24Hr): Vital Signs - 24 hr 04/05/21 19:00 04/05/21 23:00 04/06/21 03:00 Temperature 99 F 98.7 F 99.1 F Pulse Rate 105 H 101 H 100 Respiratory Rate 18 19 19 Blood Pressure 125/63 133/60 124/72 Pulse Oximetry 96 94 96 04/06/21 07:00 04/06/21 07:32 04/06/21 11:00 Temperature 98.5 F 98.5 F Pulse Rate 103 H 92 104 H Respiratory Rate 22 H 18 21 H Blood Pressure 129/75 135/70 Pulse Oximetry 94 96 BMI result Body Mass Index 24.2 Labs Results: 04/06/21 04:35 04/06/21 04:35 Labs: Laboratory Results - last 48 hr 04/01/21 04/03/21 04/05/21 10:54 09:15 08:34 WBC RBC Hgb Hct MCV MCH MCHC RDW Plt Count MPV Immature Gran % (Auto) Neut % (Auto) Lymph % (Auto) Williamson % (Auto) Eos % (Auto) Baso % (Auto) Lymph # (Auto) Williamson # (Auto) Eos # (Auto) Baso # (Auto) Abs Immat Gran (auto) Absolute Neuts (auto) Absolute Nucleated RBC Nucleated RBC % (auto) Neutrophils % (Manual) Band Neutrophils % Lymphocytes % (Manual) Monocytes % (Manual) Metamyelocytes % Abs Neuts (Manual) Lymphocytes # (Manual) Monocytes # (Manual) Metamyelocytes # Toxic Vacuolation Platelet Estimate Plt Morphology Comment RBC Morphology Polychromasia Hypochromasia Sodium Potassium Chloride Carbon Dioxide Anion Gap BUN Creatinine Estim Creat Clear Calc Estimated GFR Random Glucose Calcium Total Bilirubin Direct Bilirubin AST ALT Alkaline Phosphatase Total Protein Albumin Vancomycin Trough 19.5 Random Vancomycin Proteinase 3 (PR3) Ab <1.0 Myeloperoxidase Ab <1.0 Glomerular Base Memb Ab <1.0 Crossmatch See Detail 04/05/21 04/05/21 04/05/21 08:34 08:34 19:48 WBC 9.8 RBC 2.77 L Hgb 7.5 L Hct 21.8 L MCV 78.7 L MCH 27.1 MCHC 34.4 RDW 17.1 H Plt Count 56 L D MPV 11.2 Immature Gran % (Auto) Cancelled Neut % (Auto) Cancelled Lymph % (Auto) Cancelled Williamson % (Auto) Cancelled Eos % (Auto) Cancelled Baso % (Auto) Cancelled Lymph # (Auto) Cancelled Williamson # (Auto) Cancelled Eos # (Auto) Cancelled Baso # (Auto) Cancelled Abs Immat Gran (auto) Cancelled Absolute Neuts (auto) Cancelled Absolute Nucleated RBC 0.000 Nucleated RBC % (auto) 0.0 Neutrophils % (Manual) 72 Band Neutrophils % 14 H Lymphocytes % (Manual) 7 L Monocytes % (Manual) 5 Metamyelocytes % 2 Abs Neuts (Manual) 8.4 H Lymphocytes # (Manual) 0.7 L Monocytes # (Manual) 0.5 Metamyelocytes # 0.2 Toxic Vacuolation PRESENT Platelet Estimate DECREASED Plt Morphology Comment NORMAL RBC Morphology NOTED Polychromasia 1+ (0-2) Hypochromasia 2+ (15-30) Sodium 130 L Potassium 4.5 Chloride 103 Carbon Dioxide 17 L Anion Gap 15 BUN 14 Creatinine 0.86 Estim Creat Clear Calc 76.6 Estimated GFR > 60 Random Glucose 90 Calcium 7.8 L D Total Bilirubin Direct Bilirubin AST ALT Alkaline Phosphatase Total Protein Albumin Vancomycin Trough Random Vancomycin 10.0 L Proteinase 3 (PR3) Ab Myeloperoxidase Ab Glomerular Base Memb Ab Crossmatch 04/06/21 04/06/21 04:35 04:35 WBC 10.1 RBC 2.72 L Hgb 7.2 L Hct 21.9 L MCV 80.5 MCH 26.5 L MCHC 32.9 RDW 18.3 H Plt Count 57 L MPV 10.1 Immature Gran % (Auto) Neut % (Auto) Lymph % (Auto) Williamson % (Auto) Eos % (Auto) Baso % (Auto) Lymph # (Auto) Williamson # (Auto) Eos # (Auto) Baso # (Auto) Abs Immat Gran (auto) Absolute Neuts (auto) Absolute Nucleated RBC 0.000 Nucleated RBC % (auto) 0.0 Neutrophils % (Manual) Band Neutrophils % Lymphocytes % (Manual) Monocytes % (Manual) Metamyelocytes % Abs Neuts (Manual) Lymphocytes # (Manual) Monocytes # (Manual) Metamyelocytes # Toxic Vacuolation Platelet Estimate Plt Morphology Comment RBC Morphology Polychromasia Hypochromasia Sodium 130 L Potassium 4.4 Chloride 104 Carbon Dioxide 18 L Anion Gap 12 BUN 18 H Creatinine 1.06 Estim Creat Clear Calc 62.1 Estimated GFR > 60 Random Glucose 108 Calcium 7.8 L Total Bilirubin 1.1 H Direct Bilirubin 0.7 H AST 15 ALT 10 Alkaline Phosphatase 68 D Total Protein 6.1 L Albumin 2.4 L D Vancomycin Trough Random Vancomycin Proteinase 3 (PR3) Ab Myeloperoxidase Ab Glomerular Base Memb Ab Crossmatch Imaging Radiology Impressions: ITS Impressions Chest X-Ray 03/31/21 22:26 IMPRESSION: Patchy bilateral airspace disease, most consistent with Covid pneumonia. Abdomen Ultrasound 04/01/21 09:54 IMPRESSION: Enlarged liver. Thickened edematous gallbladder wall. No gallstones are seen. Differential would include gallbladder wall changes related to liver disease, cholangitis, low albumin, CHF, acalculous cholecystitis and pancreatitis. If there is clinical concern of acalculous cholecystitis, HIDA scan would be recommended. Limited visualization of the pancreas. Small right pleural effusion. Pulmonary Perfusion Imaging 04/01/21 13:43 IMPRESSION: Intermediate probability of pulmonary embolism. These abnormalities may be due to pulmonary emboli or severe pneumonitis, or a combination of the two. If not contraindicated, CTA pulmonary embolism protocol would be helpful in differentiating these. Chest CTA 04/03/21 11:48 IMPRESSION: Very limited exam due to artifact from respiratory motion and extensive airspace disease and adenopathy. No large or central pulmonary embolism is seen. Evaluation of the segmental and subsegmental pulmonary arteries is markedly limited. Multiple bilateral pulmonary nodules, some of which appear cavitary and areas of airspace disease or consolidation in the lower lobes suggestive of pneumonia, left greater than right. Bilateral pleural effusions left greater than right. The left pleural effusion is partially loculated. Enlarged hilar and mediastinal lymph nodes. Chest CT appearance is somewhat atypical for Covid infection. Septic emboli, granulomatous or fungal infection, vasculitis, other causes of cavitary pneumonia such as Staphylococcus and Klebsiella pneumonia and neoplasm should be also considered. Prominent liver and spleen. Right axillary lymphadenopathy. VTE: neg Chest X-Ray 04/04/21 20:32 IMPRESSION: Worsening bilateral pulmonary opacities Small to moderate left effusion is minimally increased in size. Chest X-Ray 04/06/21 08:32 IMPRESSION: Worsened bilateral pleural effusions, loculated on the left. Persistent bilateral airspace disease and nodular opacities consistent with multifocal pneumonia. New right midlung opacity may represent fluid in the right major fissure or developing consolidative pneumonia. Chest CT 04/06/21 14:09 IMPRESSION: Worsened bilateral pleural effusions, left greater than right. The left pleural fluid is presumably loculated as it is seen tracking along the left lateral chest wall in a nondependent position. Innumerable nodular opacities and areas of nodular consolidation are seen, many of which are cavitary. These are increased in number from the prior study 04/03/2021. The previously seen abnormalities a roughly similar in size. The overall appearance, particularly with the cavitation, is more suggestive of septic emboli or other multifocal pneumonia, rather than viral COVID pneumonitis. In addition, there is worsening confluent consolidation at the left lung base and in the superior segment of the right lower lobe consistent with worsening focal consolidative pneumonia. Fleischner guidelines were followed. Medications Medications Current Medications Acetaminophen (Acetaminophen 325 Mg Tablet) 650 mg PO Q6H PRN PRN Reason: Fever Last Admin: 04/04/21 12:36 Dose: 650 mg Documented by: Albuterol/Ipratropium (Albuterol/Iprat 2.5/0.5mg 3 Ml Ampul.Neb) 3 ml INHALE RQ6H WHILE AWAKE [facility] Last Admin: 04/06/21 15:00 Dose: Not Given Documented by: Albuterol/Ipratropium (Albuterol/Iprat 2.5/0.5mg 3 Ml Ampul.Neb) 3 ml INHALE RQ4H PRN PRN Reason: Shortness of Breath/Wheezing Benzonatate (Benzonatate 100 Mg Capsule) 100 mg PO TID PRN PRN Reason: Cough Last Admin: 04/05/21 09:54 Dose: 100 mg Documented by: Guaifenesin/Dextromethorphan (Guaifenesin Dm 200/20/10 Ml 10 Ml Syrup) 10 ml PO QID [facility] [place] Last Admin: 04/06/21 16:05 Dose: 10 ml Documented by: Hydroxyzine HCl (Hydroxyzine Hcl 25 Mg Tablet) 25 mg PO Q6H PRN PRN Reason: Anxiety Last Admin: 04/03/21 22:59 Dose: 25 mg Documented by: Vancomycin HCl 750 mg/ Sodium (Chloride) 265 mls @ 265 mls/hr IV Q12H [facility] [place] Last Infusion: 04/06/21 12:11 Dose: Infused Documented by: Melatonin (Melatonin 3 Mg Tablet) 6 mg PO BEDTIME PRN PRN Reason: Insomnia Last Admin: 04/04/21 01:30 Dose: 6 mg Documented by: Morphine Sulfate (Morphine Sulfate 4 Mg/Ml Cartridge) 4 mg IVPUSH Q4H PRN; Protocol PRN Reason: Pain, Severe (Pain Scale 7-10) Last Admin: 04/06/21 16:05 Dose: 4 mg Documented by: Nicotine Polacrilex (Nicotine Polacrilex 2 Mg Gum) 2 mg BUCCAL Q2H PRN PRN Reason: Nicotine Cravings Last Admin: 04/04/21 05:47 Dose: 2 mg Documented by: Oxycodone HCl (Oxycodone Hcl Immed Release 5 Mg Tablet) 5 mg PO Q4H PRN PRN Reason: Pain, Moderate (Pain Scale 4-6 Last Admin: 04/05/21 15:50 Dose: 5 mg Documented by: Pharmacy Consult (Consult Rx Vancomycin Dosing) 1 each MISCELLANE DAILY PRN PRN Reason: Consult order Pharmacy Consult (Consult Rx Perform Med Rec) 1 each MISCELLANE ONCE PRN PRN Reason: Consult order Senna (Sennosides 8.6 Mg Tablet) 17.2 mg PO BEDTIME PRN PRN Reason: Constipation Sodium Chloride (0.9 % Sodium Chloride Flush 3 Ml Syringe) 3 ml IVFLUSH QSHIFT [facility] [place] Last Admin: 04/06/21 16:06 Dose: 3 ml Documented by: Allergies Allergies Allergy/AdvReac Type Severity Reaction Status Date / Time No Known Allergies Allergy Verified 05/12/20 05:11 Assessment & Plan Assessment & Plan (1) Opioid use disorder, severe, dependence: Status: Acute Code(s): F11.20 - Opioid dependence, uncomplicated Assessment and Plan: Will keep methadone at 50mg for another day or 2 and increase if necessary Please continue to monitor for over sedation I spent ___15___ minutes with the patient and/or on the patient floor today, greater than?50% of which was spent counseling/coordinating care.
--- NOTE | 2021-04-06 17:12 | PM.PNNEP ---
Subjective Subjective Date of Service: 04/06/21 Interval history: Events noted. All recent data reviewed Physical Exam Vital Signs: Vital Signs: Last Vital Signs Temp 97.7 F 04/06/21 15:00 Pulse 107 H 04/06/21 15:00 Resp 18 04/06/21 15:00 BP 130/72 04/06/21 15:00 Pulse Ox 98 04/06/21 15:00 BMI result Body Mass Index 24.2 Const: General: no acute distress Orientation/consciousness: patient oriented x3 Neck: Neck: Yes supple Resp: Auscultation: diminished lung sounds Cardio: Jugular venous distension: no JVD GI: Palpation (GI): Soft to palpation Neuro: General: patient oriented x3 and moves all extremities Objective Data Labs CBC & Chem 7: 04/06/21 04:35 04/06/21 04:35 Labs: Laboratory Results - last 24 hr 04/01/21 04/05/21 04/06/21 10:54 19:48 04:35 WBC RBC Hgb Hct MCV MCH MCHC RDW Plt Count MPV Absolute Nucleated RBC Nucleated RBC % (auto) Sodium 130 L Potassium 4.4 Chloride 104 Carbon Dioxide 18 L Anion Gap 12 BUN 18 H Creatinine 1.06 Estim Creat Clear Calc 62.1 Estimated GFR > 60 Random Glucose 108 Calcium 7.8 L Total Bilirubin 1.1 H Direct Bilirubin 0.7 H AST 15 ALT 10 Alkaline Phosphatase 68 D Total Protein 6.1 L Albumin 2.4 L D Random Vancomycin 10.0 L Proteinase 3 (PR3) Ab <1.0 Myeloperoxidase Ab <1.0 Glomerular Base Memb Ab <1.0 04/06/21 04:35 WBC 10.1 RBC 2.72 L Hgb 7.2 L Hct 21.9 L MCV 80.5 MCH 26.5 L MCHC 32.9 RDW 18.3 H Plt Count 57 L MPV 10.1 Absolute Nucleated RBC 0.000 Nucleated RBC % (auto) 0.0 Sodium Potassium Chloride Carbon Dioxide Anion Gap BUN Creatinine Estim Creat Clear Calc Estimated GFR Random Glucose Calcium Total Bilirubin Direct Bilirubin AST ALT Alkaline Phosphatase Total Protein Albumin Random Vancomycin Proteinase 3 (PR3) Ab Myeloperoxidase Ab Glomerular Base Memb Ab Microbiology Microbiology Results: Microbiology 03/31/21 21:53 Blood - Venous Blood Culture - Final Staphylococcus aureus Strep dysgalactiae ssp equisim 03/31/21 21:53 Blood - Venous Blood Culture - Final Staphylococcus aureus Strep dysgalactiae ssp equisim 04/01/21 Unknown Urine clean catch - Urine fox top Urine Culture - Final Procedures Date of Service Date of Service: 04/06/21 Assessment & Plan Assessment and plan (1) MELITON (acute kidney injury): Status: Acute Assessment and Plan: MELITON due to tubular injury Differential post infectious GN ( C3/C4 low) Renal function improved/stable Continue rest of current supportive care Time Spent With Patient Time: Total time spent is greater than 50% in coordination of care (as documented) at patient's floor/unit and/or counseling patient: Progress Note: Quality Stroke Does the patient have a stroke diagnosis?: No
--- NOTE | 2021-04-06 18:49 | CONS_ITS ---
DATE OF SERVICE: 04/06/2021 REFERRING PHYSICIAN: Yaz Morgan MD HISTORY OF PRESENT ILLNESS: The patient is seen today at request of Dr. Morgan. This 25-year-old female has been admitted in the hospital since 03/31/2021, initially with past history of right forearm cellulitis and an open wound due to IV drugs abuse. The patient presented on 03/31 with chief complaint of fever and shortness of breath. She has had history of fever and chills for about 1 week to 10 days. In the emergency room, noted to have large necrotic area on the arm, but chest x-ray also showed haziness in both lower lobes suggestive of pneumonia. The patient being managed for extensive pneumonia with septicemia. Blood cultures are growing Staphylococcus aureus. Echocardiogram is showing tricuspid vegetation. The patient is being treated with vancomycin and Zosyn. She remains short of breath and very weak and lethargic. Repeat CT scan today is grossly abnormal showing a large loculated pleural effusion on the left side and a small to moderate effusion on the right side in addition to previously noted consolidations. As noted above, she has history of IV heroin abuse. PHYSICAL EXAMINATION: GENERAL: Reveals this 25-year-old female, sitting up in the bed mainly concerned about being hungry and wants some food at this time. VITAL SIGNS: Respiratory rate is 20. Does not seem to be in acute distress. Temperature is 97.7 at this time. Pulse oximetry shows O2 saturation of 98. She is on nasal cannula with oxygen 3 L/minute. HEENT: Throat is narrow but clear. NECK: Short. No jugular venous distention. Trachea midline. CHEST: She has dullness over both lower lobes, more marked on the left side. Breath sounds are diminished, especially over the bases. Inspiratory crackles are heard over the left mid chest and lower lobe and also over the right lower lobe. LABORATORY DATA: CBC: WBC count 10.1, hemoglobin 7.2, hematocrit 22. DIAGNOSTIC DATA: CT scan of the chest shows nodular consolidations and opacities on both sides, specially in the lower lobes. There is confluent consolidation of left lower lobe and also in the superior segment of the right lower lobe. Other large sized loculated pleural effusion on the left side and small effusion on the right side are noted. CLINICAL IMPRESSION: 1. Bilateral pneumonia. 2. Pleural effusion, especially on the left side most likely representing early empyema. 3. Respiratory failure with hypoxemia secondary to above. 4. Septicemia secondary to Staphylococcus aureus. 5. Tricuspid vegetation. RECOMMENDATION: I agree with the current management. She is appropriately being covered with broad-spectrum antibiotic. Oxygen supplementation to keep O2 saturation above 90%. I think she should have pleural tap under ultrasound guidance, and if she has characteristics of the fluid suggesting empyema, she may need to have placement of a chest tube for continuous drainage. For possibility of chest tube, a Thoracic Surgical consultation may be in order. Thank you very much for asking me to see this patient. MD KEITH Mcleod/NITZA / [phone]
[2021-04-06 21:13] LABS: Vancomycin Trough 14.5 mcg/mL (10.0-20.0)
[2021-04-06 22:14] LABS: Creatinine Clr Calc Pharmacy 56.3; Estimated Glomerular Filt Rate 57
--- NOTE | 2021-04-06 22:28 | HE.PHANOTE ---
VANCOMYCIN DOSE CHANGE Trough came back at 14.5 with scr jumping to 1.17. Dose recalcuated to 1250 q 24h with predicted auc of 462 and trough of 12. Adjusted dose to be cautious of changing renal function. Rechecking in AM
[2021-04-07] VITALS (12 sets, daily range): BP systolic 112–137; BP diastolic 55–82; PULSE 85–119; RESP 17–28; TEMP 36.6–38.5; O2SAT 91–95
[2021-04-07] MEDS: Morphine Sulfate 4 MG/ML CARTRIDGE IVPUSH ×5 (00:16→20:04)
[2021-04-07] MEDS: Albuterol/Iprat 2.5/0.5MG 3 ML AMPUL.NEB INHALE ×2 (08:07→20:16)
[2021-04-07 08:48] LABS: Mean Corpuscular HGB Conc 33.7 g/dl (31.0-35.0); Mean Corpuscular Hemoglobin 27.2 pg (27.0-33.0); Mean Corpuscular Volume 80.8 fL (80.0-98.0); Mean Platelet Volume 9.6 fL (9.4-12.3); Red Blood Count 2.39 X10*6/uL (4.20-5.50); Red Cell Distribution Width 18.4 % (11.0-16.0); White Blood Count 11.7 X10*3/uL (4.8-10.8)
[2021-04-07 09:04] LABS: Anion Gap 10 (12-20); Blood Urea Nitrogen 19 mg/dL (9-16); C Reactive Protein 14.34 mg/dL (< or = 0.50); Calcium 7.9 mg/dL (8.4-10.2); Carbon Dioxide 21 mmol/L (22-29); Chloride 101 mmol/L (96-108); Creatinine Clr Calc Pharmacy 55.8; Estimated Glomerular Filt Rate 57; Glucose Random 106 mg/dL (60-115); INTERNATIONAL NORM RATIO 1.6 (0.9-1.1); Potassium 4.3 mmol/L (3.3-5.1); Sodium 128 mmol/L (135-145)
[2021-04-07 09:07] LABS: Partial Thromboplastin Time 31.9 SEC (24.1-38.0)
[2021-04-07 09:13] LABS: Hemoglobin 6.5 g/dl (12.0-16.0)
[2021-04-07 09:14] LABS: Hematocrit 19.3 % (37.0-47.0); Platelet Count 64 X10*3/uL (160-400)
[2021-04-07] MEDS: 0.9 % Sodium Chloride Flush 3 ML SYRINGE IVFLUSH ×2 (09:28→16:01)
[2021-04-07] MEDS: guaiFENesin DM 200/20/10 ML 10 ML SYRUP PO ×4 (09:29→20:07)
[2021-04-07 09:44] LABS: Erythrocyte Sedimentation Rate 100 MM/HR (0-20)
[2021-04-07] MEDS: methADONE HCl 20 MG/2 ML ORAL.CONC 50 MG PO (10:47)
[2021-04-07] MEDS: Phytonadione (Vit K1) Oral 10 MG/ML AMPUL PO (10:48)
--- NOTE | 2021-04-07 11:48 | HO.PM.IMPN ---
Subjective Subjective Date of Service: 04/07/21 Interval History: Coughing Back pain improved No fever Chest tube placement held for anemia/coagulopathy Review of Systems Review of Systems: Yes all other systems are reviewed and are negative Physical Exam Vital Signs: Vital Signs: Last Vital Signs Temp 98.0 F 04/07/21 07:00 Pulse 111 H 04/07/21 08:08 Resp 26 H 04/07/21 08:08 BP 127/62 04/07/21 07:00 Pulse Ox 91 L 04/07/21 07:00 BMI result Body Mass Index 24.2 Gen: ill-appearing HEENT: sclera anicteric, moist mucus membranes Neck: supple Lungs: diminished L>R base Heart: regular rate and rhythm Abd: soft, non-tender, non-distended Ext: no edema Skin: warm/well-perfused, R forearm ulcer with raised margins without drainage Neuro: alert and oriented x3, no focal findings Psych: restricted affect Objective Data Active Medications Acetaminophen (Acetaminophen 325 Mg Tablet) 650 mg PO Q6H PRN PRN Reason: Fever Last Admin: 04/04/21 12:36 Dose: 650 mg Documented by: JOSE MIGUEL Albuterol/Ipratropium (Albuterol/Iprat 2.5/0.5mg 3 Ml Ampul.Neb) 3 ml INHALE RQ6H WHILE AWAKE [facility] Last Admin: 04/07/21 08:07 Dose: 3 ml Documented by: TRAVIS Albuterol/Ipratropium (Albuterol/Iprat 2.5/0.5mg 3 Ml Ampul.Neb) 3 ml INHALE RQ4H PRN PRN Reason: Shortness of Breath/Wheezing Benzonatate (Benzonatate 100 Mg Capsule) 100 mg PO TID PRN PRN Reason: Cough Last Admin: 04/05/21 09:54 Dose: 100 mg Documented by: JOSE MIGUEL Guaifenesin/Dextromethorphan (Guaifenesin Dm 200/20/10 Ml 10 Ml Syrup) 10 ml PO QID [facility] Last Admin: 04/07/21 09:29 Dose: 10 ml Documented by: JULES Hydroxyzine HCl (Hydroxyzine Hcl 25 Mg Tablet) 25 mg PO Q6H PRN PRN Reason: Anxiety Last Admin: 04/03/21 22:59 Dose: 25 mg Documented by: CARMEN Vancomycin HCl 1,250 mg/ (Sodium Chloride) 250 mls @ 166.667 mls/hr IV Q24H [facility] Last Admin: 04/07/21 11:30 Dose: Not Given Documented by: JULES Non-Admin Reason: TROUGH 8.0 Melatonin (Melatonin 3 Mg Tablet) 6 mg PO BEDTIME PRN PRN Reason: Insomnia Last Admin: 04/04/21 01:30 Dose: 6 mg Documented by: CARMEN Morphine Sulfate (Morphine Sulfate 4 Mg/Ml Cartridge) 4 mg IVPUSH Q4H PRN; Protocol PRN Reason: Pain, Severe (Pain Scale 7-10) Last Admin: 04/07/21 09:27 Dose: 4 mg Documented by: JULES Nicotine Polacrilex (Nicotine Polacrilex 2 Mg Gum) 2 mg BUCCAL Q2H PRN PRN Reason: Nicotine Cravings Last Admin: 04/04/21 05:47 Dose: 2 mg Documented by: CARMEN Oxycodone HCl (Oxycodone Hcl Immed Release 5 Mg Tablet) 5 mg PO Q4H PRN PRN Reason: Pain, Moderate (Pain Scale 4-6 Last Admin: 04/05/21 15:50 Dose: 5 mg Documented by: JOSE MIGUEL Pharmacy Consult (Consult Rx Vancomycin Dosing) 1 each MISCELLANE DAILY PRN PRN Reason: Consult order Pharmacy Consult (Consult Rx Perform Med Rec) 1 each MISCELLANE ONCE PRN PRN Reason: Consult order Senna (Sennosides 8.6 Mg Tablet) 17.2 mg PO BEDTIME PRN PRN Reason: Constipation Sodium Chloride (0.9 % Sodium Chloride Flush 3 Ml Syringe) 3 ml IVFLUSH QSHIFT [facility] Last Admin: 04/07/21 09:28 Dose: 3 ml Documented by: JULES Labs CBC & Chem 7: 04/07/21 08:12 04/07/21 08:12 Labs: Laboratory Results - last 24 hr 04/01/21 04/06/21 04/06/21 10:54 20:34 20:34 MCV MCH MCHC RDW Plt Count MPV Absolute Nucleated RBC Nucleated RBC % (auto) ESR PT INR APTT Anion Gap Estim Creat Clear Calc 56.3 Estimated GFR 57 Random Glucose Calcium C-Reactive Protein Vancomycin Trough 14.5 Proteinase 3 (PR3) Ab <1.0 Myeloperoxidase Ab <1.0 Glomerular Base Memb Ab <1.0 Blood Type Antibody Screen Crossmatch 04/07/21 04/07/21 04/07/21 08:12 08:12 08:12 MCV MCH MCHC RDW Plt Count MPV Absolute Nucleated RBC Nucleated RBC % (auto) ESR PT 18.0 H INR 1.6 H APTT 31.9 Anion Gap 10 L Estim Creat Clear Calc 55.8 Estimated GFR 57 Random Glucose 106 Calcium 7.9 L C-Reactive Protein 14.34 H Vancomycin Trough 8.0 L Proteinase 3 (PR3) Ab Myeloperoxidase Ab Glomerular Base Memb Ab Blood Type Antibody Screen Crossmatch 04/07/21 04/07/21 04/07/21 08:12 08:12 10:30 MCV 80.8 MCH 27.2 MCHC 33.7 RDW 18.4 H Plt Count 64 L MPV 9.6 Absolute Nucleated RBC 0.000 Nucleated RBC % (auto) 0.0 ESR 100 H PT INR APTT Anion Gap Estim Creat Clear Calc Estimated GFR Random Glucose Calcium C-Reactive Protein Vancomycin Trough Proteinase 3 (PR3) Ab Myeloperoxidase Ab Glomerular Base Memb Ab Blood Type O Positive Antibody Screen NEGATIVE Crossmatch See Detail Assessment and Plan (1) Pleural effusion: Status: Acute (2) Septic embolism: Status: Acute (3) Infective endocarditis: Status: Acute (4) Cocaine use disorder, severe, dependence: Status: Acute (5) Opioid use disorder, severe, dependence: Status: Acute (6) Acute respiratory failure with hypoxia: Status: Acute (7) Transaminitis: Status: Acute (8) Bacteremia: Status: Acute (9) Acute hyponatremia: Status: Acute (10) Leukocytosis: Status: Acute (11) Pneumonia: Status: Acute (12) Thrombocytopenia: Status: Acute (13) Anemia: Status: Acute Assessment and Plan: hospital d#8 25yo F with history of IV heroin + cocaine abuse, recent RUE cellulitis with open wound p/w SOB admitted for severe sepsis, found to be bacteremic with TV endocarditis and cavitary septic emboli + loculated pleural effusion # loculated L pleural effusion - Pulm + Thoracic consulted, plan tube thoracostomy with tPA administration for chemical decortication x3d, procedure held til tomorrow due to anemia/coagulopathy, will order pleural fluid cytology/cultures/chemistries/cell count # anemia of chronic inflammation - received 3u of pRBCs 04/03/21, transfuse another 2u today # coagulopathy - vit K PO 10 mg, repeat INR in am # severe sepsis # MSSA + Streptococcus dysgalactiae [[employer]] bacteremia/infective endocarditis [2.77 x 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] # multifocal pneumonia with cavitary septic emboli - WBC and lactate normalized, continue vancomycin d#7, total 42d after culture clearanance- check surveillance BCx today and if negative @ [address] PICC [earliest would be 04/09/21] - non-surgical management per Cardiology # acute hypoxic respiratory failure - wean O2 as tolerated after draining pleural effusion # thrombocytopenia - likely due to sepsis + HCV, continues to improve # MAT-associated wound - 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 # back pain - no focal neurologic signs, pt declines MRI of spine, continue to monitor -> improfed today - oxycodone + morphine prn # MELITON - SCr normalized, avoid nephrotoxins + continue to monitor # hypoNa - mild, 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 # transaminasemia - resolved, likely due to sepsis # HCV - Ab positive, viral load pending; HBV immune; HIV negative # opioid use disorder - continue methadone 50 mg/d; Addiction Medicine following # cocaine abuse - prn hydroxyzine, CARE Team # tobacco abuse - NRT # protein-calorie malnutrition - Ensure supplementation # VTE ppx - SCDs Quality Stroke Does the patient have a stroke diagnosis?: No VTE Prior VTE?: No VTE Risk Level:: Medical - moderate - high VTE Device Contraindication: Treatment Not Indicated VTE Drug Contraindication: N/A - Med Ordered
--- NOTE | 2021-04-07 11:51 | PM.PNNEP ---
Subjective Subjective Date of Service: 04/07/21 Interval history: Events noted. All recent data reviewed Physical Exam Vital Signs: Vital Signs: Last Vital Signs Temp 98.0 F 04/07/21 07:00 Pulse 111 H 04/07/21 08:08 Resp 26 H 04/07/21 08:08 BP 127/62 04/07/21 07:00 Pulse Ox 91 L 04/07/21 07:00 BMI result Body Mass Index 24.2 Const: General: alert Eyes: EOM: EOMs intact bilaterally Neck: Neck: Yes supple Resp: Auscultation: diminished lung sounds Cardio: Rate: tachycardic GI: Palpation (GI): Soft to palpation Neuro: General: moves all extremities Objective Data Labs CBC & Chem 7: 04/07/21 08:12 04/07/21 08:12 Labs: Laboratory Results - last 24 hr 04/01/21 04/06/21 04/06/21 10:54 20:34 20:34 WBC RBC Hgb Hct MCV MCH MCHC RDW Plt Count MPV Absolute Nucleated RBC Nucleated RBC % (auto) ESR PT INR APTT Sodium Potassium Chloride Carbon Dioxide Anion Gap BUN Creatinine 1.17 Estim Creat Clear Calc 56.3 Estimated GFR 57 Random Glucose Calcium C-Reactive Protein Vancomycin Trough 14.5 Proteinase 3 (PR3) Ab <1.0 Myeloperoxidase Ab <1.0 Glomerular Base Memb Ab <1.0 Blood Type Antibody Screen Crossmatch 04/07/21 04/07/21 04/07/21 08:12 08:12 08:12 WBC RBC Hgb Hct MCV MCH MCHC RDW Plt Count MPV Absolute Nucleated RBC Nucleated RBC % (auto) ESR PT 18.0 H INR 1.6 H APTT 31.9 Sodium 128 L Potassium 4.3 Chloride 101 Carbon Dioxide 21 L Anion Gap 10 L BUN 19 H Creatinine 1.18 Estim Creat Clear Calc 55.8 Estimated GFR 57 Random Glucose 106 Calcium 7.9 L C-Reactive Protein 14.34 H Vancomycin Trough 8.0 L Proteinase 3 (PR3) Ab Myeloperoxidase Ab Glomerular Base Memb Ab Blood Type Antibody Screen Crossmatch 04/07/21 04/07/21 04/07/21 08:12 08:12 10:30 WBC 11.7 H RBC 2.39 L Hgb 6.5 L* Hct 19.3 L* MCV 80.8 MCH 27.2 MCHC 33.7 RDW 18.4 H Plt Count 64 L MPV 9.6 Absolute Nucleated RBC 0.000 Nucleated RBC % (auto) 0.0 ESR 100 H PT INR APTT Sodium Potassium Chloride Carbon Dioxide Anion Gap BUN Creatinine Estim Creat Clear Calc Estimated GFR Random Glucose Calcium C-Reactive Protein Vancomycin Trough Proteinase 3 (PR3) Ab Myeloperoxidase Ab Glomerular Base Memb Ab Blood Type O Positive Antibody Screen NEGATIVE Crossmatch See Detail Microbiology Microbiology Results: Microbiology 03/31/21 21:53 Blood - Venous Blood Culture - Final Staphylococcus aureus Strep dysgalactiae ssp equisim 03/31/21 21:53 Blood - Venous Blood Culture - Final Staphylococcus aureus Strep dysgalactiae ssp equisim 04/01/21 Unknown Urine clean catch - Urine fox top Urine Culture - Final Procedures Date of Service Date of Service: 04/07/21 Assessment & Plan Assessment and plan (1) MELITON (acute kidney injury): Status: Acute Assessment and Plan: MELITON due to tubular injury Differential post infectious GN ( C3/C4 low) Renal function improved/stable Continue rest of current supportive care Time Spent With Patient Time: Total time spent is greater than 50% in coordination of care (as documented) at patient's floor/unit and/or counseling patient: Progress Note: Quality Stroke Does the patient have a stroke diagnosis?: No
[2021-04-07] MEDS: Acetaminophen 325 MG TABLET 650 MG PO (13:20)
--- NOTE | 2021-04-07 16:06 | MHC.CM.PN ---
EMR REVIEWED, PER HOSPITALIST PT WAS UNABLE TO HAVE CHEST TUBE PLACED YESTERDAY D/T BEING ANEMIC, PT RECEIVING TRANSFUSION AT TIME OF THIS NOT AND PLAN WILL BE FOR CHEST TUBE TOMORROW 04/08/21, BC'S DRAWN TODAY AND IF NEG PT WILL HAVE PICC LINE PLACED AND PLAN CONT'S TO BE STR FOR 6WKS IV ABX. CM WILL CONT TO FOLLOW.
[2021-04-08] VITALS (16 sets, daily range): BP systolic 116–139; BP diastolic 56–82; PULSE 80–114; RESP 16–38; TEMP 36.1–38.1; O2SAT 89–100; BMI 24.2
[2021-04-08] MEDS: Morphine Sulfate 4 MG/ML CARTRIDGE IVPUSH ×6 (00:44→20:39)
[2021-04-08] MEDS: Benzonatate 100 MG CAPSULE PO ×2 (00:44→10:36)
[2021-04-08 06:36] LABS: Anion Gap 12 (12-20); Blood Urea Nitrogen 20 mg/dL (9-16); Calcium 7.8 mg/dL (8.4-10.2); Carbon Dioxide 19 mmol/L (22-29); Chloride 102 mmol/L (96-108); Creatinine Clr Calc Pharmacy 57.7; Estimated Glomerular Filt Rate 59; Glucose Random 93 mg/dL (60-115); Lactate Dehydrogenase 248 U/L (122-220); Potassium 4.7 mmol/L (3.3-5.1); Sodium 128 mmol/L (135-145)
[2021-04-08 06:39] LABS: Hematocrit 25.4 % (37.0-47.0); Hemoglobin 8.4 g/dl (12.0-16.0); Mean Corpuscular HGB Conc 33.1 g/dl (31.0-35.0); Mean Corpuscular Hemoglobin 28.7 pg (27.0-33.0); Mean Corpuscular Volume 86.7 fL (80.0-98.0); Mean Platelet Volume 11.2 fL (9.4-12.3); Red Blood Count 2.93 X10*6/uL (4.20-5.50); Red Cell Distribution Width 18.6 % (11.0-16.0); White Blood Count 13.8 X10*3/uL (4.8-10.8)
[2021-04-08 06:41] LABS: INTERNATIONAL NORM RATIO 1.5 (0.9-1.1); Prothrombin Time 16.7 SEC (9.9-13.0)
[2021-04-08 07:02] LABS: Platelet Count 81 X10*3/uL (160-400)
[2021-04-08] MEDS: guaiFENesin DM 200/20/10 ML 10 ML SYRUP PO ×3 (08:15→20:39)
[2021-04-08] MEDS: methADONE HCl 20 MG/2 ML ORAL.CONC 50 MG PO (08:16)
[2021-04-08] MEDS: 0.9 % Sodium Chloride Flush 3 ML SYRINGE IVFLUSH ×2 (08:16→18:32)
[2021-04-08] MEDS: vancomycin HCL 1,250 MG in 0.9 % Sodium Chloride 250 ML 166.67 MG IV (10:30)
--- NOTE | 2021-04-08 10:57 | MHC.RECOVRN ---
Met with pt to check in and update regarding OTP. Pt reports methadone is going well and denies questions or concerns regarding dose. Pt is looking forward to procedure today (chest tube placement) in hopes to obtain some relief. Pt aware and agrees to return to [facility] in [place] after dc. Pt aware phone call must be made prior to dc in order to make appt and schedule return. 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 Pt reports uncertainty of wanting to continue antibiotic treatment if necessary. Pt encouraged to focus on one thing at a time and not making that decision right now. Pt agrees. Discussed with Jinny Wright APRN. Will continue to follow.
--- NOTE | 2021-04-08 11:14 | HO.PM.IMPN ---
Subjective Subjective Date of Service: 04/08/21 Interval History: coughing up brown sputum no fever NPO for chest tube today Review of Systems Review of Systems: Yes all other systems are reviewed and are negative Physical Exam Vital Signs: Vital Signs: Last Vital Signs Temp 97.1 F 04/08/21 07:59 Pulse 107 H 04/08/21 07:59 Resp 19 04/08/21 07:59 BP 135/69 04/08/21 07:59 Pulse Ox 95 04/08/21 07:59 BMI result Body Mass Index 24.2 Gen: ill-appearing HEENT: sclera anicteric, moist mucus membranes Neck: supple Lungs: diminished L>R base Heart: regular rate and rhythm Abd: soft, non-tender, non-distended Ext: no edema Skin: warm/well-perfused, R forearm ulcer with raised margins without drainage Neuro: alert and oriented x3, no focal findings Psych: restricted affect Objective Data Active Medications Acetaminophen (Acetaminophen 325 Mg Tablet) 650 mg PO Q6H PRN PRN Reason: Fever Last Admin: 04/07/21 13:20 Dose: 650 mg Documented by: JULES Benzonatate (Benzonatate 100 Mg Capsule) 100 mg PO TID PRN PRN Reason: Cough Last Admin: 04/08/21 10:36 Dose: 100 mg Documented by: JENI Guaifenesin/Dextromethorphan (Guaifenesin Dm 200/20/10 Ml 10 Ml Syrup) 10 ml PO QID [facility] Last Admin: 04/08/21 08:15 Dose: 10 ml Documented by: JENI Hydroxyzine HCl (Hydroxyzine Hcl 25 Mg Tablet) 25 mg PO Q6H PRN PRN Reason: Anxiety Last Admin: 04/03/21 22:59 Dose: 25 mg Documented by: CARMEN Vancomycin HCl 1,250 mg/ (Sodium Chloride) 250 mls @ 166.667 mls/hr IV Q24H [facility] Last Admin: 04/07/21 11:30 Dose: Not Given Documented by: JULES Non-Admin Reason: TROUGH 8.0 Melatonin (Melatonin 3 Mg Tablet) 6 mg PO BEDTIME PRN PRN Reason: Insomnia Last Admin: 04/04/21 01:30 Dose: 6 mg Documented by: CARMEN Methadone HCl (Methadone Hcl 20 Mg/2 Ml Oral.Conc) 50 mg PO DAILY [facility] Last Admin: 04/08/21 08:16 Dose: 50 mg Documented by: JENI Morphine Sulfate (Morphine Sulfate 4 Mg/Ml Cartridge) 4 mg IVPUSH Q4H PRN; Protocol PRN Reason: Pain, Severe (Pain Scale 7-10) Last Admin: 04/08/21 08:15 Dose: 4 mg Documented by: JENI Nicotine Polacrilex (Nicotine Polacrilex 2 Mg Gum) 2 mg BUCCAL Q2H PRN PRN Reason: Nicotine Cravings Last Admin: 04/04/21 05:47 Dose: 2 mg Documented by: ODRISKelly Oxycodone HCl (Oxycodone Hcl Immed Release 5 Mg Tablet) 5 mg PO Q4H PRN PRN Reason: Pain, Moderate (Pain Scale 4-6 Last Admin: 04/05/21 15:50 Dose: 5 mg Documented by: JOSE MIGUEL Pharmacy Consult (Consult Rx Perform Med Rec) 1 each MISCELLANE ONCE PRN PRN Reason: Consult order Senna (Sennosides 8.6 Mg Tablet) 17.2 mg PO BEDTIME PRN PRN Reason: Constipation Sodium Chloride (0.9 % Sodium Chloride Flush 3 Ml Syringe) 3 ml IVFLUSH QSHIFT [facility] Last Admin: 04/08/21 08:16 Dose: 3 ml Documented by: JENI Labs CBC & Chem 7: 04/08/21 05:20 04/08/21 05:20 Labs: Laboratory Results - last 24 hr 04/03/21 04/07/21 04/08/21 09:15 10:30 05:20 MCV 86.7 D MCH 28.7 MCHC 33.1 RDW 18.6 H Plt Count 81 L D MPV 11.2 Absolute Nucleated RBC 0.000 Nucleated RBC % (auto) 0.0 PT INR Anion Gap Estim Creat Clear Calc Estimated GFR Random Glucose Calcium Lactate Dehydrogenase Blood Type O Positive Antibody Screen NEGATIVE Crossmatch See Detail See Detail 04/08/21 04/08/21 05:20 05:20 MCV MCH MCHC RDW Plt Count MPV Absolute Nucleated RBC Nucleated RBC % (auto) PT 16.7 H INR 1.5 H Anion Gap 12 Estim Creat Clear Calc 57.7 Estimated GFR 59 Random Glucose 93 Calcium 7.8 L Lactate Dehydrogenase 248 H Blood Type Antibody Screen Crossmatch ITS Impressions Chest X-Ray 03/31/21 22:26 IMPRESSION: Patchy bilateral airspace disease, most consistent with Covid pneumonia. Abdomen Ultrasound 04/01/21 09:54 IMPRESSION: Enlarged liver. Thickened edematous gallbladder wall. No gallstones are seen. Differential would include gallbladder wall changes related to liver disease, cholangitis, low albumin, CHF, acalculous cholecystitis and pancreatitis. If there is clinical concern of acalculous cholecystitis, HIDA scan would be recommended. Limited visualization of the pancreas. Small right pleural effusion. Pulmonary Perfusion Imaging 04/01/21 13:43 IMPRESSION: Intermediate probability of pulmonary embolism. These abnormalities may be due to pulmonary emboli or severe pneumonitis, or a combination of the two. If not contraindicated, CTA pulmonary embolism protocol would be helpful in differentiating these. Chest CTA 04/03/21 11:48 IMPRESSION: Very limited exam due to artifact from respiratory motion and extensive airspace disease and adenopathy. No large or central pulmonary embolism is seen. Evaluation of the segmental and subsegmental pulmonary arteries is markedly limited. Multiple bilateral pulmonary nodules, some of which appear cavitary and areas of airspace disease or consolidation in the lower lobes suggestive of pneumonia, left greater than right. Bilateral pleural effusions left greater than right. The left pleural effusion is partially loculated. Enlarged hilar and mediastinal lymph nodes. Chest CT appearance is somewhat atypical for Covid infection. Septic emboli, granulomatous or fungal infection, vasculitis, other causes of cavitary pneumonia such as Staphylococcus and Klebsiella pneumonia and neoplasm should be also considered. Prominent liver and spleen. Right axillary lymphadenopathy. VTE: neg Chest X-Ray 04/04/21 20:32 IMPRESSION: Worsening bilateral pulmonary opacities Small to moderate left effusion is minimally increased in size. Chest X-Ray 04/06/21 08:32 IMPRESSION: Worsened bilateral pleural effusions, loculated on the left. Persistent bilateral airspace disease and nodular opacities consistent with multifocal pneumonia. New right midlung opacity may represent fluid in the right major fissure or developing consolidative pneumonia. Chest CT 04/06/21 14:09 IMPRESSION: Worsened bilateral pleural effusions, left greater than right. The left pleural fluid is presumably loculated as it is seen tracking along the left lateral chest wall in a nondependent position. Innumerable nodular opacities and areas of nodular consolidation are seen, many of which are cavitary. These are increased in number from the prior study 04/03/2021. The previously seen abnormalities a roughly similar in size. The overall appearance, particularly with the cavitation, is more suggestive of septic emboli or other multifocal pneumonia, rather than viral COVID pneumonitis. In addition, there is worsening confluent consolidation at the left lung base and in the superior segment of the right lower lobe consistent with worsening focal consolidative pneumonia. Fleischner guidelines were followed. Microbiology Microbiology Results: Microbiology 04/07/21 08:23 Blood Culture - Preliminary Blood - Venous No growth after 24 hours. 04/07/21 08:12 Blood Culture - Preliminary Blood - Venous No growth after 24 hours. Assessment and Plan (1) Pleural effusion: Status: Acute (2) Septic embolism: Status: Acute (3) Infective endocarditis: Status: Acute (4) Cocaine use disorder, severe, dependence: Status: Acute (5) Opioid use disorder, severe, dependence: Status: Acute (6) Acute respiratory failure with hypoxia: Status: Acute (7) Transaminitis: Status: Acute (8) Bacteremia: Status: Acute (9) Acute hyponatremia: Status: Acute (10) Leukocytosis: Status: Acute (11) Pneumonia: Status: Acute (12) Thrombocytopenia: Status: Acute (13) Anemia: Status: Acute Assessment and Plan: hospital d#9 25yo F with history of IV heroin + cocaine abuse, recent RUE cellulitis with open wound p/w SOB admitted for severe sepsis, found to be bacteremic with TV endocarditis and cavitary septic emboli + loculated pleural effusion # loculated L pleural effusion - Pulm + Thoracic consulted, plan tube thoracostomy today with tPA administration for chemical decortication x3d, ordered pleural fluid cytology/cultures/chemistries/cell count # anemia of chronic inflammation - received 3u pRBCs 04/03/21 + 2u pRBCs 04/07/21 # coagulopathy - vit K 10 mg PO given # severe sepsis # MSSA + Streptococcus dysgalactiae [equis group] bacteremia/infective endocarditis [2.77 x 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] # multifocal pneumonia with cavitary septic emboli - WBC and lactate normalized, got 7d of vancomycin- will switch to cefazolin 2g IV q8h- total 42d after culture clearance- f/u surveillance BCx from yesterday and if negative @ 48h place PICC [earliest would be 04/09/21] - non-surgical management per Cardiology # acute hypoxic respiratory failure - wean O2 as tolerated after draining pleural effusion # thrombocytopenia - likely due to sepsis + HCV, continues to improve # MAT-associated wound - order expediter consulted # back pain - no focal neurologic signs, pt declines MRI of spine, continue to monitor -> improved - oxycodone + morphine prn # MELITON - SCr normalized, avoid nephrotoxins + continue to monitor # hypoNa - mild, 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 # transaminasemia - resolved, likely due to sepsis # HCV - Ab positive, viral load pending; HBV immune; HIV negative # opioid use disorder - continue methadone 50 mg/d; Addiction Medicine following # cocaine abuse - prn hydroxyzine, CARE Team # tobacco abuse - NRT # protein-calorie malnutrition - Ensure supplementation # VTE ppx - SCDs # dispo - will need STR for prolonged IV ABX Quality Stroke Does the patient have a stroke diagnosis?: No VTE Prior VTE?: No VTE Risk Level:: Medical - moderate - high VTE Device Contraindication: Treatment Not Indicated VTE Drug Contraindication: N/A - Med Ordered
--- NOTE | 2021-04-08 11:21 | MHC.CLN ---
NUTRITION CONSULT CONSULT FOR CHRONIC FOREARM WOUND. NOT PRESSURE RELATED. DIET=NPO. PRIOR DIET HAD BEEN REGULAR WITH VARIABLE INTAKE NOTED. HAS MEDICAL DX OF PROTEIN CALORIE MALNUTRITION. WHEN DIET RESUMES, RECOMMEND ADD NUTRITIONAL SUPPLEMENT TID BASED ON DIET CONSISTENCY. IF CLEAR LIQUIDS, ADD ENSURE CLEAR TID (720 KCAL, 24 G PROTEIN). IF FULL LIQUID OR GREATER CONSISTENCY, ADD ENSURE TID (1050 KCAL, 39 G PROTEIN)
[2021-04-08] MEDS: ceFAZolin Sodium/Dextrose,Iso 2 GM/50 ML PIGGYBACK IV ×2 (12:26→20:39)
--- NOTE | 2021-04-08 15:04 | MHC.CM.PN ---
EMR REVIEWED, PT HAD CHEST TUBE PLACEMENT TODAY AND REPORTS RELIEF, PT MET W/RECOVERY NURSE AND REPORTED METHADONE IS GOING WELL, [facility]ST[facility] BC'S WILL RETURN NEG TOMORROW 04/09 AND KRYSTAL D/C HOME NO SERVICES UNLESS SHE AGREES TO [place] TX.
[2021-04-08] MEDS: Acetaminophen 325 MG TABLET 650 MG PO (16:27)
--- NOTE | 2021-04-08 16:28 | PM.PNNEP ---
Subjective Subjective Date of Service: 04/08/21 Interval history: Seen AM. Events noted. All recent data reviewed Physical Exam Vital Signs: Vital Signs: Last Vital Signs Temp 99 F 04/08/21 16:00 Pulse 108 H 04/08/21 16:00 Resp 17 04/08/21 16:00 BP 129/70 04/08/21 16:00 Pulse Ox 93 04/08/21 16:00 BMI result Body Mass Index 24.2 Const: General: no acute distress Eyes: EOM: EOMs intact bilaterally Neck: Neck: Yes supple Resp: Auscultation: diminished lung sounds Cardio: Rate: regular rate GI: Palpation (GI): Soft to palpation Neuro: General: moves all extremities Objective Data Labs CBC & Chem 7: 04/08/21 05:20 04/08/21 05:20 Labs: Laboratory Results - last 24 hr 04/07/21 04/08/21 04/08/21 10:30 05:20 05:20 WBC 13.8 H RBC 2.93 L D Hgb Cancelled 8.4 L D Hct Cancelled 25.4 L D MCV 86.7 D MCH 28.7 MCHC 33.1 RDW 18.6 H Plt Count 81 L D MPV 11.2 Absolute Nucleated RBC 0.000 Nucleated RBC % (auto) 0.0 PT INR Sodium Potassium Chloride Carbon Dioxide Anion Gap BUN Creatinine Estim Creat Clear Calc Estimated GFR Random Glucose Calcium Lactate Dehydrogenase Blood Type O Positive Antibody Screen NEGATIVE Crossmatch See Detail 04/08/21 04/08/21 05:20 05:20 WBC RBC Hgb Hct MCV MCH MCHC RDW Plt Count MPV Absolute Nucleated RBC Nucleated RBC % (auto) PT 16.7 H INR 1.5 H Sodium 128 L Potassium 4.7 Chloride 102 Carbon Dioxide 19 L Anion Gap 12 BUN 20 H Creatinine 1.14 Estim Creat Clear Calc 57.7 Estimated GFR 59 Random Glucose 93 Calcium 7.8 L Lactate Dehydrogenase 248 H Blood Type Antibody Screen Crossmatch Microbiology Microbiology Results: Microbiology 04/07/21 08:23 Blood - Venous Blood Culture - Preliminary No growth after 24 hours. 04/07/21 08:12 Blood - Venous Blood Culture - Preliminary No growth after 24 hours. 03/31/21 21:53 Blood - Venous Blood Culture - Final Staphylococcus aureus Strep dysgalactiae ssp equisim 03/31/21 21:53 Blood - Venous Blood Culture - Final Staphylococcus aureus Strep dysgalactiae ssp equisim 04/01/21 Unknown Urine clean catch - Urine fox top Urine Culture - Final Procedures Date of Service Date of Service: 04/08/21 Assessment & Plan Assessment and plan (1) MELITON (acute kidney injury): Status: Acute Assessment and Plan: MELITON due to tubular injury Differential post infectious GN ( C3/C4 low) Renal function improved/stable Low Sodium due to excess ADH from pulmonary pathology Continue rest of current supportive care Time Spent With Patient Time: Total time spent is greater than 50% in coordination of care (as documented) at patient's floor/unit and/or counseling patient: Progress Note: Quality Stroke Does the patient have a stroke diagnosis?: No
[2021-04-09] MEDS: Morphine Sulfate 4 MG/ML CARTRIDGE IVPUSH ×6 (00:26→21:18)
[2021-04-09] MEDS: 0.9 % Sodium Chloride Flush 3 ML SYRINGE IVFLUSH ×3 (00:27→21:17)
[2021-04-09 03:00] VITALS: BP 126/60; PULSE 105; RESP 18; TEMP 36.9; O2SAT 94
[2021-04-09] MEDS: ceFAZolin Sodium/Dextrose,Iso 2 GM/50 ML PIGGYBACK IV ×3 (04:30→21:17)
[2021-04-09 05:48] LABS: Anion Gap 11 (12-20); Blood Urea Nitrogen 23 mg/dL (9-16); Calcium 7.9 mg/dL (8.4-10.2); Carbon Dioxide 20 mmol/L (22-29); Chloride 102 mmol/L (96-108); Creatinine Clr Calc Pharmacy 52.3; Estimated Glomerular Filt Rate 53; Glucose Random 101 mg/dL (60-115); Potassium 4.8 mmol/L (3.3-5.1); Sodium 128 mmol/L (135-145)
[2021-04-09 06:11] LABS: Hematocrit 24.1 % (37.0-47.0); Mean Corpuscular HGB Conc 33.2 g/dl (31.0-35.0); Mean Corpuscular Hemoglobin 28.3 pg (27.0-33.0); Mean Corpuscular Volume 85.2 fL (80.0-98.0); Mean Platelet Volume 9.8 fL (9.4-12.3); Platelet Count 110 X10*3/uL (160-400); Red Blood Count 2.83 X10*6/uL (4.20-5.50); Red Cell Distribution Width 18.4 % (11.0-16.0); White Blood Count 13.1 X10*3/uL (4.8-10.8)
[2021-04-09 07:00] VITALS: BP 124/57; PULSE 96; RESP 21; TEMP 37.1; O2SAT 94
[2021-04-09] MEDS: methADONE HCl 20 MG/2 ML ORAL.CONC 50 MG PO (08:23)
[2021-04-09] MEDS: guaiFENesin DM 200/20/10 ML 10 ML SYRUP PO ×4 (08:24→21:16)
[2021-04-09] MEDS: 0.9 % Sodium Chloride 1,000 ML 100 ML IVCONT (08:32)
--- NOTE | 2021-04-09 10:13 | HO.PM.IMPN ---
Subjective Subjective Date of Service: 04/09/21 Interval History: had chest tube yesterday dyspnea improved coughing brown sputum Review of Systems Review of Systems: Yes all other systems are reviewed and are negative Physical Exam Vital Signs: Vital Signs: Last Vital Signs Temp 98.7 F 04/09/21 07:00 Pulse 96 04/09/21 07:00 Resp 21 H 04/09/21 07:00 BP 124/57 L 04/09/21 07:00 Pulse Ox 94 04/09/21 07:00 BMI result Body Mass Index 24.2 Gen: ill-appearing HEENT: sclera anicteric, moist mucus membranes Neck: supple Lungs: diminished L>R base, L chest tube to suction with serosanguinous drainage Heart: regular rate and rhythm Abd: soft, non-tender, non-distended Ext: no edema Skin: warm/well-perfused, R forearm ulcer with raised margins without drainage Neuro: alert and oriented x3, no focal findings Psych: restricted affect Objective Data Active Medications Acetaminophen (Acetaminophen 325 Mg Tablet) 650 mg PO Q6H PRN PRN Reason: Fever Last Admin: 04/08/21 16:27 Dose: 650 mg Documented by: NOEL Benzonatate (Benzonatate 100 Mg Capsule) 100 mg PO TID PRN PRN Reason: Cough Last Admin: 04/08/21 10:36 Dose: 100 mg Documented by: JENI Guaifenesin/Dextromethorphan (Guaifenesin Dm 200/20/10 Ml 10 Ml Syrup) 10 ml PO QID [facility] Last Admin: 04/09/21 08:24 Dose: 10 ml Documented by: MAT Hydroxyzine HCl (Hydroxyzine Hcl 25 Mg Tablet) 25 mg PO Q6H PRN PRN Reason: Anxiety Last Admin: 04/03/21 22:59 Dose: 25 mg Documented by: CARMEN Cefazolin Sodium/Dextrose (Ancef) 2 gm in 50 mls @ 100 mls/hr IV Q8H [facility] Last Infusion: 04/09/21 05:42 Dose: 0 mls/hr Documented by: VALENTIN Sodium Chloride (Ns) 1,000 mls @ 100 mls/hr IVCONT .Q10H [facility] Stop: 04/10/21 03:59 Last Admin: 04/09/21 08:32 Dose: 100 mls/hr Documented by: MAT Melatonin (Melatonin 3 Mg Tablet) 6 mg PO BEDTIME PRN PRN Reason: Insomnia Last Admin: 04/04/21 01:30 Dose: 6 mg Documented by: CARMEN Methadone HCl (Methadone Hcl 20 Mg/2 Ml Oral.Conc) 50 mg PO DAILY [facility] Last Admin: 04/09/21 08:23 Dose: 50 mg Documented by: MAT Morphine Sulfate (Morphine Sulfate 4 Mg/Ml Cartridge) 4 mg IVPUSH Q4H PRN; Protocol PRN Reason: Pain, Severe (Pain Scale 7-10) Last Admin: 04/09/21 08:42 Dose: 4 mg Documented by: MAT Nicotine Polacrilex (Nicotine Polacrilex 2 Mg Gum) 2 mg BUCCAL Q2H PRN PRN Reason: Nicotine Cravings Last Admin: 04/04/21 05:47 Dose: 2 mg Documented by: CARMEN Oxycodone HCl (Oxycodone Hcl Immed Release 5 Mg Tablet) 5 mg PO Q4H PRN PRN Reason: Pain, Moderate (Pain Scale 4-6 Last Admin: 04/05/21 15:50 Dose: 5 mg Documented by: JOSE MIGUEL Pharmacy Consult (Consult Rx Perform Med Rec) 1 each MISCELLANE ONCE PRN PRN Reason: Consult order Senna (Sennosides 8.6 Mg Tablet) 17.2 mg PO BEDTIME PRN PRN Reason: Constipation Sodium Chloride (0.9 % Sodium Chloride Flush 3 Ml Syringe) 3 ml IVFLUSH QSHIFT [facility] Last Admin: 04/09/21 08:24 Dose: 3 ml Documented by: MAT Labs CBC & Chem 7: 04/09/21 05:56 04/09/21 05:15 Labs: Laboratory Results - last 24 hr 04/09/21 04/09/21 05:15 05:56 MCV 85.2 MCH 28.3 MCHC 33.2 RDW 18.4 H Plt Count 110 L D MPV 9.8 Absolute Nucleated RBC 0.000 Nucleated RBC % (auto) 0.0 Anion Gap 11 L Estim Creat Clear Calc 52.3 Estimated GFR 53 Random Glucose 101 Calcium 7.9 L Microbiology Microbiology Results: Microbiology 04/08/21 16:00 Gram Stain - Final Pleural Fluid 04/07/21 08:23 Blood Culture - Preliminary Blood - Venous No growth after 24 hours. 04/07/21 08:12 Blood Culture - Preliminary Blood - Venous No growth after 24 hours. Assessment and Plan (1) Pleural effusion: Status: Acute (2) Septic embolism: Status: Acute (3) Infective endocarditis: Status: Acute (4) Cocaine use disorder, severe, dependence: Status: Acute (5) Opioid use disorder, severe, dependence: Status: Acute (6) Acute respiratory failure with hypoxia: Status: Acute (7) Transaminitis: Status: Acute (8) Bacteremia: Status: Acute (9) Acute hyponatremia: Status: Acute (10) Leukocytosis: Status: Acute (11) Pneumonia: Status: Acute (12) Thrombocytopenia: Status: Acute (13) Anemia: Status: Acute Assessment and Plan: hospital d#10 25yo F with history of IV heroin + cocaine abuse, recent RUE cellulitis with open wound p/w SOB admitted for severe sepsis, found to be bacteremic with TV endocarditis and cavitary septic emboli + loculated pleural effusion # loculated L pleural effusion - Pulm + Thoracic consulted, s/p chest tube 04/08, to start tPA for chemical decortication x3d today - f/u pleural fluid cytology/cultures/chemistries/cell count # anemia of chronic inflammation - received 3u pRBCs 04/03/21 + 2u pRBCs 04/07/21; monitor Hb # coagulopathy - vit K 10 mg PO given # severe sepsis # MSSA + Streptococcus dysgalactiae [equis group] bacteremia/infective endocarditis [2.77 x 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] # multifocal pneumonia with cavitary septic emboli - WBC and lactate normalized, got 7d of vancomycin- changed to cefazolin 2g IV q8h 04/08/21, plan total 42d after culture clearance- f/u surveillance BCx from 04/07 and if negative @ 48h place PICC - non-surgical management per Cardiology # acute hypoxic respiratory failure - wean O2 as tolerated # thrombocytopenia - likely due to sepsis + HCV, continues to improve # MAT-associated wound - gis software engineer consulted # back pain - no focal neurologic signs, pt declines MRI of spine, continue to monitor -> improved - oxycodone + morphine prn # MELITON - SCr normalized, avoid nephrotoxins + continue to monitor # hypoNa - mild, 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 # transaminasemia - resolved, likely due to sepsis # HCV - Ab positive, viral load pending; HBV immune; HIV negative # opioid use disorder - continue methadone 50 mg/d; Addiction Medicine following # cocaine abuse - prn hydroxyzine, CARE Team # tobacco abuse - NRT # protein-calorie malnutrition - Ensure supplementation # VTE ppx - SCDs # dispo - will need STR for prolonged IV ABX Quality Stroke Does the patient have a stroke diagnosis?: No VTE Prior VTE?: No VTE Risk Level:: Medical - moderate - high VTE Device Contraindication: Treatment Not Indicated VTE Drug Contraindication: N/A - Med Ordered
[2021-04-09 11:00] VITALS: BP 135/60; PULSE 92; RESP 18; TEMP 37; O2SAT 95
--- NOTE | 2021-04-09 11:14 | PM.PNNEP ---
Subjective Subjective Date of Service: 04/09/21 Interval history: Had chest tube yesterday; Dyspnea improved Physical Exam Vital Signs: Vital Signs: Last Vital Signs Temp 98.7 F 04/09/21 07:00 Pulse 96 04/09/21 07:00 Resp 21 H 04/09/21 07:00 BP 124/57 L 04/09/21 07:00 Pulse Ox 94 04/09/21 07:00 BMI result Body Mass Index 24.2 Const: General: no acute distress Eyes: EOM: EOMs intact bilaterally Resp: Other: L Chest tube Auscultation: diminished lung sounds Cardio: Rate: regular rate GI: Palpation (GI): Soft to palpation Neuro: General: moves all extremities Objective Data Labs CBC & Chem 7: 04/09/21 05:56 04/09/21 05:15 Labs: Laboratory Results - last 24 hr 04/09/21 04/09/21 05:15 05:56 WBC 13.1 H RBC 2.83 L Hgb 8.0 L Hct 24.1 L MCV 85.2 MCH 28.3 MCHC 33.2 RDW 18.4 H Plt Count 110 L D MPV 9.8 Absolute Nucleated RBC 0.000 Nucleated RBC % (auto) 0.0 Sodium 128 L Potassium 4.8 Chloride 102 Carbon Dioxide 20 L Anion Gap 11 L BUN 23 H Creatinine 1.26 Estim Creat Clear Calc 52.3 Estimated GFR 53 Random Glucose 101 Calcium 7.9 L Microbiology Microbiology Results: Microbiology 04/08/21 16:00 Pleural Fluid Gram Stain - Final 04/08/21 16:00 Pleural Fluid Routine Culture - Preliminary No growth to date. 04/08/21 16:00 Pleural Fluid Anaerobic Culture - Preliminary No growth to date. 04/07/21 08:23 Blood - Venous Blood Culture - Preliminary No growth after 48 hours. 04/07/21 08:12 Blood - Venous Blood Culture - Preliminary No growth after 48 hours. 03/31/21 21:53 Blood - Venous Blood Culture - Final Staphylococcus aureus Strep dysgalactiae ssp equisim 03/31/21 21:53 Blood - Venous Blood Culture - Final Staphylococcus aureus Strep dysgalactiae ssp equisim 04/01/21 Unknown Urine clean catch - Urine fox top Urine Culture - Final Procedures Date of Service Date of Service: 04/09/21 Assessment & Plan Assessment and plan (1) MELITON (acute kidney injury): Status: Acute Assessment and Plan: MELITON due to tubular injury Differential post infectious GN ( C3/C4 low) Renal function stable Low Sodium due to excess ADH from pulmonary pathology Continue rest of current supportive care Time Spent With Patient Time: Total time spent is greater than 50% in coordination of care (as documented) at patient's floor/unit and/or counseling patient: Progress Note: Quality Stroke Does the patient have a stroke diagnosis?: No
--- NOTE | 2021-04-09 12:00 | MHC.RECOVRN ---
Check in with pt. Pt sitting in recliner, awake, alert, engaged in conversation. Pt reports procedure yesterday has provided some relief, pt thankful for ability to have chest tube placed. During conversation, t/w observed restless legs, pt reporting withdrawal symptoms have improved but are not completely alleviated. Pt would like to continue increasing methadone dose. Pt reports goal is around 70 mg, as pt has had success with that dose in the past. Pt assured t/w would discuss with provider. Pt denies other questions or concerns at this time. Discussed with Jinny Wright APRN.
--- NOTE | 2021-04-09 13:54 | P.PNTS_ITS ---
Subjective Subjective Date of Service: 04/09/21 Interval history: Patient had left sided chest tube placed yesterday and put to suction. Put out a total of 250cc of serosang fluid since placement. Patient denies any significant improvement in her breathing since yesterday. States she continues to have SOB which is worse with movement and when sitting straight up/forward in the chair. She also continues to cough with purulent/brown sputum. DIAGNOSTICS: Short CBC 04/09/21 Range/Units 05:56 WBC 13.1 H (4.8-10.8) X10*3/uL Hgb 8.0 L (12.0-16.0) g/dl Hct 24.1 L (37.0-47.0) % Plt Count 110 L D (160-400) X10*3/uL BMP 04/09/21 05:15 Sodium 128 L Potassium 4.8 Chloride 102 Carbon Dioxide 20 L BUN 23 H Creatinine 1.26 Calcium 7.9 L Microbiology 04/08/21 16:00 Gram Stain - Final Pleural Fluid Routine Culture - Preliminary No growth to date. Anaerobic Culture - Preliminary No growth to date. 04/07/21 08:23 Blood Culture - Preliminary Blood - Venous No growth after 48 hours. 04/07/21 08:12 Blood Culture - Preliminary Blood - Venous No growth after 48 hours. 03/31/21 21:53 Blood Culture - Final Blood - Venous Staphylococcus aureus Strep dysgalactiae ssp equisim 03/31/21 21:53 Blood Culture - Final Blood - Venous Staphylococcus aureus Strep dysgalactiae ssp equisim 04/01/21 Unknown Urine Culture - Final Urine clean catch - Urine fox top EXAMINATION: XR CHEST CLINICAL INFORMATION: Left chest tube insertion. COMPARISON: CT scans of 04/08/2021 and 04/06/2021 as well as plain film chest study of 04/06/2021. TECHNIQUE: AP portable view of the chest was obtained. FINDINGS: Since the previous study, a left-sided chest tube has been placed. There is no change in appearance of what appears to be a loculated pleural effusion extending along the chest wall. There appears to be a small amount of air present nondependently within the collection, likely iatrogenic from chest tube placement or related to trapped lung. There remains loculated right-sided pleural effusion. There are bilateral regions of disease with nodularity, with some improvement of a region of disease that was seen within the right upper lobe on chest x-ray of but with what appears to be increase in size of the partially loculated right pleural effusion. Heart normal size. No evidence of pulmonary edema. XR/XR chest 1V IMPRESSION: Left-sided chest tube in place with no significant change in left loculated pleural effusion. Small amount of air seen within the left pleural space, likely either iatrogenic from a small amount of air introduced with chest tube or related to trapped lung with some fluid being removed. ? Increase in size of partially loculated right pleural effusion. ? Diffuse bilateral regions of interstitial and airspace disease. Physical Exam Vital Signs: Vital Signs: Last Vital Signs Temp 98.6 F 04/09/21 11:00 Pulse 92 04/09/21 11:00 Resp 18 04/09/21 11:00 BP 135/60 04/09/21 11:00 Pulse Ox 95 04/09/21 11:00 BMI result Body Mass Index 24.2 General: No acute distress, resting comfortably sitting in chair, well developed. Gets SOB with sitting forward in the chair quickly. No respiratory distress. Head: Normocephalic, atraumatic, symmetric Eyes: Sclera anicteric, eyelids without edema or erythema Neck: Soft, supple, symmetric, trachea midline, no crepitus Cardiovascular: Regular rate and rhythm Respiratory: Lungs decreased bilaterally, breathing nonlabored when resting back in chair but does get somewhat SOB when leaning forward in chair, speaking in full sentences, on oxygen via nasal cannula. No use of accessory muscles. No c repitus. Left IR pigtail chest tube x 1 to [facility] on -20 wall suction, serosang drainage (250cc total in [facility]), no air leak. Psychiatric: Alert and oriented x 3, no agitation, appropriate affect Procedures Date of Service Date of Service: 04/09/21 Progress Note: A&P Assessment and plan (1) Pleural effusion: Status: Acute Assessment and Plan: 25 year old female with IVDA (heroin, cocaine) admitted to [facility] with severe sepsis with anemia and coagulopathy treated with PRBc and vitamin K, bacteremia, tricuspid valve endocarditis, septic pulmonary emboli, bilateral pleural effusion, thrombocytopenia, and hyponatremia. +HCV ab. Loculated left pleural effusion * s/p IR pigtail catheter placement on 04/08/21. Unfortunately, this catheter is extremely thin and not ideal for drainage of a complex effusion. Will need to ensure tubing stays patent with at least daily flushes. * No significant improvement in the pleural effusion since placement. * Chemical decortication initiated today and will plan to repeat x 3 days. * tPA 4mg in 50cc NS given through the left chest tube without difficulty @ 1:50pm. Chest tube remained clamped x 2 hours, then DNAse 5mg in 30cc NS was given through the chest tube @ 3:45pm. Keep tube clamped x 4 hours. RN to unclamp chest tube and place back to -20 continuous wall suction @ 7:45pm. * Call Thoracic Surgery for any questions or concerns regarding the chest tube. * Call Thoracic Surgery for any frankly bloody output from the chest tube of >100cc in 1 hour, >400cc in 8 hours, and/or signs of symptomatic anemia. * Patient came in with profound thrombocytopenia and coagulopathy. The coagulopathy was reversed and the platelets have improved significantly, but do continue to be on the lower side. Will need to check CBC daily to ensure platelets do not continue to drop which then may be a contraindication to further chemical decortication. * Monitor for any s/sx bleeding from the chest tube following every dose of alteplase/DNAse. Right pleural effusion * Increased on CXR today. * Will check morning CXR. If continues to increase may need chest tube placed in to this side as well. Case discussed with Dr. Nweton. (2) Infective endocarditis: Status: Acute (3) Septic embolism: Status: Acute (4) Cocaine use disorder, severe, dependence: Status: Acute (5) Opioid use disorder, severe, dependence: Status: Acute (6) Bacteremia: Status: Acute (7) Acute hyponatremia: Status: Acute (8) MELITON (acute kidney injury): Status: Acute (9) Pneumonia: Status: Acute (10) Thrombocytopenia: Status: Acute Fall Risk Details Current Medications: Current Medications Acetaminophen (Acetaminophen 325 Mg Tablet) 650 mg PO Q6H PRN PRN Reason: Fever Last Admin: 04/08/21 16:27 Dose: 650 mg Documented by: Benzonatate (Benzonatate 100 Mg Capsule) 100 mg PO TID PRN PRN Reason: Cough Last Admin: 04/08/21 10:36 Dose: 100 mg Documented by: Guaifenesin/Dextromethorphan (Guaifenesin Dm 200/20/10 Ml 10 Ml Syrup) 10 ml PO QID [facility] Last Admin: 04/09/21 11:53 Dose: 10 ml Documented by: Hydroxyzine HCl (Hydroxyzine Hcl 25 Mg Tablet) 25 mg PO Q6H PRN PRN Reason: Anxiety Last Admin: 04/03/21 22:59 Dose: 25 mg Documented by: Cefazolin Sodium/Dextrose (Ancef) 2 gm in 50 mls @ 100 mls/hr IV Q8H [facility] Last Infusion: 04/09/21 13:31 Dose: Infused Documented by: Sodium Chloride (Ns) 1,000 mls @ 100 mls/hr IVCONT .Q10H [facility] Stop: 04/10/21 03:59 Last Admin: 04/09/21 08:32 Dose: 100 mls/hr Documented by: Dornase Armando 5 mg/ Sodium (Chloride) 30 mls @ 7.5 mls/hr INTRAPLEUR ONCE ONE Stop: 04/09/21 18:59 Melatonin (Melatonin 3 Mg Tablet) 6 mg PO BEDTIME PRN PRN Reason: Insomnia Last Admin: 04/04/21 01:30 Dose: 6 mg Documented by: Methadone HCl (Methadone Hcl 20 Mg/2 Ml Oral.Conc) 50 mg PO DAILY [facility] Last Admin: 04/09/21 08:23 Dose: 50 mg Documented by: Morphine Sulfate (Morphine Sulfate 4 Mg/Ml Cartridge) 4 mg IVPUSH Q4H PRN; Protocol PRN Reason: Pain, Severe (Pain Scale 7-10) Last Admin: 04/09/21 13:24 Dose: 4 mg Documented by: Nicotine Polacrilex (Nicotine Polacrilex 2 Mg Gum) 2 mg BUCCAL Q2H PRN PRN Reason: Nicotine Cravings Last Admin: 04/04/21 05:47 Dose: 2 mg Documented by: Oxycodone HCl (Oxycodone Hcl Immed Release 5 Mg Tablet) 5 mg PO Q4H PRN PRN Reason: Pain, Moderate (Pain Scale 4-6 Last Admin: 04/05/21 15:50 Dose: 5 mg Documented by: Pharmacy Consult (Consult Rx Perform Med Rec) 1 each MISCELLANE ONCE PRN PRN Reason: Consult order Senna (Sennosides 8.6 Mg Tablet) 17.2 mg PO BEDTIME PRN PRN Reason: Constipation Sodium Chloride (0.9 % Sodium Chloride Flush 3 Ml Syringe) 3 ml IVFLUSH QSHIFT [facility] Last Admin: 04/09/21 08:24 Dose: 3 ml Documented by: Time Spent With Patient Time: Total time spent is greater than 50% in coordination of care (as documented) at patient's floor/unit and/or counseling patient: Time with patient: Greater than 35 minutes Quality Stroke Does the patient have a stroke diagnosis?: No VTE Prior VTE?: No VTE Risk Level:: Medical - moderate - high VTE Device Contraindication: Treatment Not Indicated VTE Drug Contraindication: N/A - Med Ordered
[2021-04-09 15:01] LABS: RBC Pleural Fluid 0.103 X10*3/uL
[2021-04-09 15:04] LABS: BF Shift QC OK YES; Lymphocytes Pleural Fluid 5 %; Monocytes Pleural Fluid 2 %; Neutrophils Pleural Fluid 88 %; Other Cells Plerual Fl 5 %
[2021-04-09 15:05] LABS: MN% 39.2 %; PMN% 60.8 %
[2021-04-09 15:07] LABS: WBC Pleural Fluid 0.535 X10*3/uL
[2021-04-09 15:52] VITALS: BP 129/63; PULSE 106; RESP 18; TEMP 37.2; O2SAT 91
[2021-04-09] MEDS: Dornase Alfa 5 MG in 0.9 % Sodium Chloride 25 ML 30 MG INTRAPLEUR (15:54)
[2021-04-09 19:00] VITALS: BP 129/58; PULSE 104; RESP 20; TEMP 36.7; O2SAT 92
--- NOTE | 2021-04-09 20:38 | P.PNADD_ITS ---
Subjective Subjective Date of Service: 04/09/21 Reason For Visit: PNA, endocarditis Interim History: Patient awake, alert, pleasant and engaged in interview. Chest tube placed yesterday. Much more interactive. Requesting methadone by increased to 55mg. Pain is well managed. Appetite decreased. Review of Systems Constitutional: Reports as per HPI Mental Status Exam Mental Status Exam Patient Appearance: Appropriate Patient Orientation: Person, Place, Time and Situation Patient Behavior: Appropriate and Talkative Mood Description: Calm and Appropriate Affect Description: Calm and Appropriate Patient Cognition Impaired: No Thought Process: Intact and Linear Judgement: Fair Diagnostics Vital Signs (24Hr): Vital Signs - 24 hr 04/08/21 21:33 04/08/21 23:06 04/09/21 03:00 Temperature 97.6 F 97.5 F 98.5 F Pulse Rate 91 80 105 H Respiratory Rate 18 18 18 Blood Pressure 123/57 L 123/57 L 126/60 Pulse Oximetry 95 95 94 04/09/21 07:00 04/09/21 11:00 04/09/21 15:52 Temperature 98.7 F 98.6 F 99.0 F Pulse Rate 96 92 106 H Respiratory Rate 21 H 18 18 Blood Pressure 124/57 L 135/60 129/63 Pulse Oximetry 94 95 91 L 04/09/21 19:00 Temperature 98.1 F Pulse Rate 104 H Respiratory Rate 20 Blood Pressure 129/58 L Pulse Oximetry 92 BMI result Body Mass Index 24.2 Labs Results: 04/09/21 05:56 04/09/21 05:15 Labs: Laboratory Results - last 48 hr 04/07/21 04/08/21 04/08/21 10:30 05:20 05:20 WBC 13.8 H RBC 2.93 L D Hgb Cancelled 8.4 L D Hct Cancelled 25.4 L D MCV 86.7 D MCH 28.7 MCHC 33.1 RDW 18.6 H Plt Count 81 L D MPV 11.2 Absolute Nucleated RBC 0.000 Nucleated RBC % (auto) 0.0 PT INR Sodium Potassium Chloride Carbon Dioxide Anion Gap BUN Creatinine Estim Creat Clear Calc Estimated GFR Random Glucose Calcium Lactate Dehydrogenase Pleural WBC Pleural RBC Pleural Neutrophils Pleural Lymphocytes Pleural Monocytes Pleural Other Cells Blood Type O Positive Antibody Screen NEGATIVE Crossmatch See Detail 04/08/21 04/08/21 04/08/21 05:20 05:20 14:00 WBC RBC Hgb Hct MCV MCH MCHC RDW Plt Count MPV Absolute Nucleated RBC Nucleated RBC % (auto) PT 16.7 H INR 1.5 H Sodium 128 L Potassium 4.7 Chloride 102 Carbon Dioxide 19 L Anion Gap 12 BUN 20 H Creatinine 1.14 Estim Creat Clear Calc 57.7 Estimated GFR 59 Random Glucose 93 Calcium 7.8 L Lactate Dehydrogenase 248 H Pleural WBC 0.535 Pleural RBC 0.103 Pleural Neutrophils 88 Pleural Lymphocytes 5 Pleural Monocytes 2 Pleural Other Cells 5 Blood Type Antibody Screen Crossmatch 04/09/21 04/09/21 05:15 05:56 WBC 13.1 H RBC 2.83 L Hgb 8.0 L Hct 24.1 L MCV 85.2 MCH 28.3 MCHC 33.2 RDW 18.4 H Plt Count 110 L D MPV 9.8 Absolute Nucleated RBC 0.000 Nucleated RBC % (auto) 0.0 PT INR Sodium 128 L Potassium 4.8 Chloride 102 Carbon Dioxide 20 L Anion Gap 11 L BUN 23 H Creatinine 1.26 Estim Creat Clear Calc 52.3 Estimated GFR 53 Random Glucose 101 Calcium 7.9 L Lactate Dehydrogenase Pleural WBC Pleural RBC Pleural Neutrophils Pleural Lymphocytes Pleural Monocytes Pleural Other Cells Blood Type Antibody Screen Crossmatch Imaging Radiology Impressions: ITS Impressions Chest X-Ray 03/31/21 22:26 IMPRESSION: Patchy bilateral airspace disease, most consistent with Covid pneumonia. Abdomen Ultrasound 04/01/21 09:54 IMPRESSION: Enlarged liver. Thickened edematous gallbladder wall. No gallstones are seen. Differential would include gallbladder wall changes related to liver disease, cholangitis, low albumin, CHF, acalculous cholecystitis and pancreatitis. If there is clinical concern of acalculous cholecystitis, HIDA scan would be recommended. Limited visualization of the pancreas. Small right pleural effusion. Pulmonary Perfusion Imaging 04/01/21 13:43 IMPRESSION: Intermediate probability of pulmonary embolism. These abnormalities may be due to pulmonary emboli or severe pneumonitis, or a combination of the two. If not contraindicated, CTA pulmonary embolism protocol would be helpful in differentiating these. Chest CTA 04/03/21 11:48 IMPRESSION: Very limited exam due to artifact from respiratory motion and extensive airspace disease and adenopathy. No large or central pulmonary embolism is seen. Evaluation of the segmental and subsegmental pulmonary arteries is markedly limited. Multiple bilateral pulmonary nodules, some of which appear cavitary and areas of airspace disease or consolidation in the lower lobes suggestive of pneumonia, left greater than right. Bilateral pleural effusions left greater than right. The left pleural effusion is partially loculated. Enlarged hilar and mediastinal lymph nodes. Chest CT appearance is somewhat atypical for Covid infection. Septic emboli, granulomatous or fungal infection, vasculitis, other causes of cavitary pneumonia such as Staphylococcus and Klebsiella pneumonia and neoplasm should be also considered. Prominent liver and spleen. Right axillary lymphadenopathy. VTE: neg Chest X-Ray 04/04/21 20:32 IMPRESSION: Worsening bilateral pulmonary opacities Small to moderate left effusion is minimally increased in size. Chest X-Ray 04/06/21 08:32 IMPRESSION: Worsened bilateral pleural effusions, loculated on the left. Persistent bilateral airspace disease and nodular opacities consistent with multifocal pneumonia. New right midlung opacity may represent fluid in the right major fissure or developing consolidative pneumonia. Chest CT 04/06/21 14:09 IMPRESSION: Worsened bilateral pleural effusions, left greater than right. The left pleural fluid is presumably loculated as it is seen tracking along the left lateral chest wall in a nondependent position. Innumerable nodular opacities and areas of nodular consolidation are seen, many of which are cavitary. These are increased in number from the prior study 04/03/2021. The previously seen abnormalities a roughly similar in size. The overall appearance, particularly with the cavitation, is more suggestive of septic emboli or other multifocal pneumonia, rather than viral COVID pneumonitis. In addition, there is worsening confluent consolidation at the left lung base and in the superior segment of the right lower lobe consistent with worsening focal consolidative pneumonia. Fleischner guidelines were followed. Chest Tube Insertion 04/08/21 16:36 IMPRESSION: Successful CT fluoroscopy-guided insertion of a 6.3-Sami left chest tube catheter with its tip along the left lateral chest wall connected to waterseal drainage and subsequently to be connected to -20 cm of wall suction. There were no immediate complications. The patient was sent to the floor in satisfactory condition same as received previously. Chest X-Ray 04/09/21 08:20 IMPRESSION: Left-sided chest tube in place with no significant change in left loculated pleural effusion. Small amount of air seen within the left pleural space, likely either iatrogenic from a small amount of air introduced with chest tube or related to trapped lung with some fluid being removed. Increase in size of partially loculated right pleural effusion. Diffuse bilateral regions of interstitial and airspace disease. Medications Medications Current Medications Acetaminophen (Acetaminophen 325 Mg Tablet) 650 mg PO Q6H PRN PRN Reason: Fever Last Admin: 04/08/21 16:27 Dose: 650 mg Documented by: Benzonatate (Benzonatate 100 Mg Capsule) 100 mg PO TID PRN PRN Reason: Cough Last Admin: 04/08/21 10:36 Dose: 100 mg Documented by: Guaifenesin/Dextromethorphan (Guaifenesin Dm 200/20/10 Ml 10 Ml Syrup) 10 ml PO QID [facility] Last Admin: 04/09/21 17:26 Dose: 10 ml Documented by: Hydroxyzine HCl (Hydroxyzine Hcl 25 Mg Tablet) 25 mg PO Q6H PRN PRN Reason: Anxiety Last Admin: 04/03/21 22:59 Dose: 25 mg Documented by: Cefazolin Sodium/Dextrose (Ancef) 2 gm in 50 mls @ 100 mls/hr IV Q8H [facility] Last Infusion: 04/09/21 13:31 Dose: Infused Documented by: Sodium Chloride (Ns) 1,000 mls @ 100 mls/hr IVCONT .Q10H [facility] Stop: 04/10/21 03:59 Last Admin: 04/09/21 18:29 Dose: Not Given Documented by: Melatonin (Melatonin 3 Mg Tablet) 6 mg PO BEDTIME PRN PRN Reason: Insomnia Last Admin: 04/04/21 01:30 Dose: 6 mg Documented by: Methadone HCl (Methadone Hcl 20 Mg/2 Ml Oral.Conc) 55 mg PO DAILY [facility] Morphine Sulfate (Morphine Sulfate 4 Mg/Ml Cartridge) 4 mg IVPUSH Q4H PRN; Protocol PRN Reason: Pain, Severe (Pain Scale 7-10) Last Admin: 04/09/21 17:26 Dose: 4 mg Documented by: Nicotine Polacrilex (Nicotine Polacrilex 2 Mg Gum) 2 mg BUCCAL Q2H PRN PRN Reason: Nicotine Cravings Last Admin: 04/04/21 05:47 Dose: 2 mg Documented by: Pharmacy Consult (Consult Rx Perform Med Rec) 1 each MISCELLANE ONCE PRN PRN Reason: Consult order Senna (Sennosides 8.6 Mg Tablet) 17.2 mg PO BEDTIME PRN PRN Reason: Constipation Sodium Chloride (0.9 % Sodium Chloride Flush 3 Ml Syringe) 3 ml IVFLUSH QSHIFT [facility] Last Admin: 04/09/21 16:27 Dose: Not Given Documented by: Allergies Allergies Allergy/AdvReac Type Severity Reaction Status Date / Time No Known Allergies Allergy Verified 05/12/20 05:11 Assessment & Plan Assessment & Plan (1) Opioid use disorder, severe, dependence: Status: Acute Code(s): F11.20 - Opioid dependence, uncomplicated Assessment and Plan: * increase methadone to 55mg QD * will continue to follow I spent __15____ minutes with the patient and/or on the patient floor today, greater than?50% of which was spent counseling/coordinating care.
[2021-04-09 23:00] VITALS: BP 134/64; PULSE 106; RESP 19; TEMP 37; O2SAT 92
[2021-04-10] MEDS: Morphine Sulfate 4 MG/ML CARTRIDGE IVPUSH ×6 (01:28→22:02)
[2021-04-10 03:00] VITALS: BP 126/60; PULSE 101; RESP 20; TEMP 36.8; O2SAT 93
[2021-04-10] MEDS: ceFAZolin Sodium/Dextrose,Iso 2 GM/50 ML PIGGYBACK IV ×3 (04:57→20:21)
[2021-04-10 05:43] LABS: Hemoglobin 7.8 g/dl (12.0-16.0); Mean Corpuscular HGB Conc 32.5 g/dl (31.0-35.0); Mean Corpuscular Hemoglobin 27.8 pg (27.0-33.0); Mean Corpuscular Volume 85.4 fL (80.0-98.0); Mean Platelet Volume 9.8 fL (9.4-12.3); Platelet Count 164 X10*3/uL (160-400); Red Blood Count 2.81 X10*6/uL (4.20-5.50); Red Cell Distribution Width 18.4 % (11.0-16.0); White Blood Count 12.6 X10*3/uL (4.8-10.8)
[2021-04-10 07:00] VITALS: BP 123/61; PULSE 97; RESP 18; TEMP 36.1; O2SAT 95
[2021-04-10] MEDS: methADONE HCl 20 MG/2 ML ORAL.CONC 55 MG PO (08:44)
[2021-04-10] MEDS: guaiFENesin DM 200/20/10 ML 10 ML SYRUP PO ×4 (08:45→20:23)
[2021-04-10] MEDS: 0.9 % Sodium Chloride Flush 3 ML SYRINGE IVFLUSH ×3 (08:45→20:22)
--- NOTE | 2021-04-10 10:31 | P.PNIM_ITS ---
Subjective Subjective Date of Service: 04/10/21 Interval History: Back pain improved Dyspnea improved Chest tube in place No fever Blood cultures cleared Review of Systems Review of Systems: Yes all other systems are reviewed and are negative Physical Exam Vital Signs: Vital Signs: Last Vital Signs Temp 96.9 F 04/10/21 07:00 Pulse 97 04/10/21 07:00 Resp 18 04/10/21 07:00 BP 123/61 04/10/21 07:00 Pulse Ox 95 04/10/21 07:00 BMI result Body Mass Index 24.2 Gen: in NAD on 3L O2 via NC HEENT: sclera anicteric, moist mucus membranes Neck: supple Lungs: diminished L>R base, L chest tube to wall suction with serosanguinous drainage Heart: regular rate and rhythm Abd: soft, non-tender, non-distended Ext: no edema Skin: warm/well-perfused, R forearm ulcer with raised margins without drainage Neuro: alert and oriented x3, no focal findings Psych: restricted affect Objective Data Active Medications Acetaminophen (Acetaminophen 325 Mg Tablet) 650 mg PO Q6H PRN PRN Reason: Fever Last Admin: 04/08/21 16:27 Dose: 650 mg Documented by: NOEL Benzonatate (Benzonatate 100 Mg Capsule) 100 mg PO TID PRN PRN Reason: Cough Last Admin: 04/08/21 10:36 Dose: 100 mg Documented by: JENI Guaifenesin/Dextromethorphan (Guaifenesin Dm 200/20/10 Ml 10 Ml Syrup) 10 ml PO QID [facility] Last Admin: 04/10/21 08:45 Dose: 10 ml Documented by: MAT Hydroxyzine HCl (Hydroxyzine Hcl 25 Mg Tablet) 25 mg PO Q6H PRN PRN Reason: Anxiety Last Admin: 04/03/21 22:59 Dose: 25 mg Documented by: CARMEN Cefazolin Sodium/Dextrose (Ancef) 2 gm in 50 mls @ 100 mls/hr IV Q8H [facility] Last Infusion: 04/10/21 05:29 Dose: 0 mls/hr Documented by: VALENTIN Melatonin (Melatonin 3 Mg Tablet) 6 mg PO BEDTIME PRN PRN Reason: Insomnia Last Admin: 04/04/21 01:30 Dose: 6 mg Documented by: CARMEN Methadone HCl (Methadone Hcl 20 Mg/2 Ml Oral.Conc) 55 mg PO DAILY [facility] Last Admin: 04/10/21 08:44 Dose: 55 mg Documented by: MAT Morphine Sulfate (Morphine Sulfate 4 Mg/Ml Cartridge) 4 mg IVPUSH Q4H PRN; Protocol PRN Reason: Pain, Severe (Pain Scale 7-10) Last Admin: 04/10/21 09:34 Dose: 4 mg Documented by: MAT Nicotine Polacrilex (Nicotine Polacrilex 2 Mg Gum) 2 mg BUCCAL Q2H PRN PRN Reason: Nicotine Cravings Last Admin: 04/04/21 05:47 Dose: 2 mg Documented by: CARMEN Pharmacy Consult (Consult Rx Perform Med Rec) 1 each MISCELLANE ONCE PRN PRN Reason: Consult order Senna (Sennosides 8.6 Mg Tablet) 17.2 mg PO BEDTIME PRN PRN Reason: Constipation Sodium Chloride (0.9 % Sodium Chloride Flush 3 Ml Syringe) 3 ml IVFLUSH QSHIFT [facility] Last Admin: 04/10/21 08:45 Dose: 3 ml Documented by: MAT Labs CBC & Chem 7: 04/10/21 05:17 04/09/21 05:15 Labs: Laboratory Results - last 24 hr 04/08/21 04/10/21 14:00 05:17 MCV 85.4 MCH 27.8 MCHC 32.5 RDW 18.4 H Plt Count 164 D MPV 9.8 Absolute Nucleated RBC 0.000 Nucleated RBC % (auto) 0.0 Pleural WBC 0.535 Pleural RBC 0.103 Pleural Neutrophils 88 Pleural Lymphocytes 5 Pleural Monocytes 2 Pleural Other Cells 5 Microbiology Microbiology Results: Microbiology 04/08/21 16:00 Gram Stain - Final Pleural Fluid Routine Culture - Preliminary No growth to date. Anaerobic Culture - Preliminary No growth to date. 04/07/21 08:23 Blood Culture - Preliminary Blood - Venous No growth after 48 hours. 04/07/21 08:12 Blood Culture - Preliminary Blood - Venous No growth after 48 hours. Assessment and Plan (1) Pleural effusion: Status: Acute (2) Septic embolism: Status: Acute (3) Infective endocarditis: Status: Acute (4) Cocaine use disorder, severe, dependence: Status: Acute (5) Opioid use disorder, severe, dependence: Status: Acute (6) Acute respiratory failure with hypoxia: Status: Acute (7) Transaminitis: Status: Acute (8) Bacteremia: Status: Acute (9) Acute hyponatremia: Status: Acute (10) Leukocytosis: Status: Acute (11) Pneumonia: Status: Acute (12) Thrombocytopenia: Status: Acute (13) Anemia: Status: Acute Assessment and Plan: hospital d#11 25yo F with history of IV heroin + cocaine abuse, recent RUE cellulitis with open wound p/w SOB admitted for severe sepsis, found to be bacteremic with TV endocarditis and cavitary septic emboli + loculated pleural effusion # severe sepsis # MSSA + Streptococcus dysgalactiae [equis group] bacteremia/infective endocarditis [2.77 x 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] # multifocal pneumonia with cavitary septic emboli - WBC and lactate normalized, got 7d of vancomycin- changed to cefazolin 2g IV q8h 04/08/21, on day #342, PICC ordered since BCx from 04/07 cleared # loculated L pleural effusion - Pulm + Thoracic consulted, s/p chest tube 04/08, on d#2/3 of chemical decor tication with intrapleural tPA administerd by Thoracic Surgery - f/u pleural fluid cytology/cultures/chemistries # anemia of chronic inflammation - tranfused 3u pRBCs 04/03/21 + 2u pRBCs 04/07/21; monitor Hb # coagulopathy - vit K 10 mg PO given; monitor INR # acute hypoxic respiratory failure - wean O2 as tolerated # thrombocytopenia - likely due to sepsis + HCV, resolved # MAT-associated wound - luggage repairer consulted # back pain - no focal neurologic signs, pt declines MRI of spine, continue to monitor -> improved - oxycodone + morphine prn # MELITON - SCr normalized, avoid nephrotoxins + continue to monitor # hypoNa - mild, 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 # transaminasemia - resolved, likely due to sepsis # HCV - Ab positive, viral load pending; HBV immune; HIV negative # opioid use disorder - continue methadone 55 mg/d; Addiction Medicine following # cocaine abuse - prn hydroxyzine, CARE Team # tobacco abuse - NRT # protein-calorie malnutrition - Ensure supplementation # VTE ppx - SCDs # dispo - will need STR for prolonged IV ABX Quality Stroke Does the patient have a stroke diagnosis?: No VTE Prior VTE?: No VTE Risk Level:: Medical - moderate - high VTE Device Contraindication: Treatment Not Indicated VTE Drug Contraindication: N/A - Med Ordered
[2021-04-10 11:00] VITALS: BP 127/55; PULSE 86; RESP 18; TEMP 36.3; O2SAT 95
--- NOTE | 2021-04-10 11:13 | PM.PNTS ---
Subjective Subjective Date of Service: 04/10/21 Interval history: Patient was seen examined this morning. Patient denies any shortness of breath at rest or with exertion states that she just feels tired. Her left-sided chest tube continues to put out serosanguineous fluid with approximately 13 150 cc total in Atrium reservoir. There are no markings on atrium as far as dates and times of fluid output. Her atrium reservoir was also noted to be on water-seal as the wall suction was never turned on. Patient received tPA intrapleural administration as well as dornase intrapleural administration yesterday. Her morning labs reveal platelets have improved now 167 and hemoglobin remained stable at 7.8. Physical Exam Vital Signs: Vital Signs: Last Vital Signs Temp 96.9 F 04/10/21 07:00 Pulse 97 04/10/21 07:00 Resp 18 04/10/21 07:00 BP 123/61 04/10/21 07:00 Pulse Ox 95 04/10/21 07:00 BMI result Body Mass Index 24.2 Const: General: cooperative, no acute distress and ill appearing Nutritional Appearance: overweight Orientation/consciousness: patient oriented x3 HENMT: Head: Yes normal to inspection, Yes normocephalic and Yes atraumatic Face and sinus: Yes normal facial exam Eyes: General: appearance normal, both eyes and all related structures Conjunctivae: conjunctivae normal Sclerae: sclerae normal Pupils: Equal, round and reactive pupils present Neck: Neck: Yes normal visual inspection, Yes trachea midline, Yes supple and Yes no JVD Chest: Other: Left-sided pigtail catheter remains in place with approximately 1000 cc of serosanguineous fluid output overnight, no detectable air leak on physical exam. There is a small amount of crepitus along left lateral chest wall. Breath sounds diminished bilaterally throughout all lung richardson with mild scattered rhonchi appreciated throughout. Resp: Other: L Chest tube Effort & Inspection: normal respiratory effort and able to speak in complete sentences Auscultation: diminished lung sounds Cardio: Jugular venous distension: no JVD Rate: regular rate Rhythm: regular rhythm GI: Inspection: Yes normal to inspection Palpation (GI): Soft to palpation and nontender Auscultation: normal bowel sounds Neuro: General: patient oriented x3, moves all extremities and Unable to assess gait Cranial nerves: Yes Equal, round and reactive pupils present Speech: No Abnormal speech present Gait exam (Neuro): Unable to assess gait Motor exam (neuro): 5/5 motor strength present throughout Extrem: General: Yes no pedal edema and Yes no calf tenderness Procedures Date of Service Date of Service: 04/10/21 Progress Note: A&P Assessment and plan (1) Pleural effusion: Status: Acute Assessment and Plan: 25 year old female with IVDA (heroin, cocaine) admitted to [facility] with severe sepsis with anemia and coagulopathy treated with PRBc and vitamin K, bacteremia, tricuspid valve endocarditis, septic pulmonary emboli, bilateral pleural effusion, thrombocytopenia, and hyponatremia. +HCV ab. Loculated left pleural effusion s/p IR pigtail catheter placement on 04/08/21. Unfortunately, this catheter is extremely thin and not ideal for drainage of a complex effusion. Will need to ensure tubing stays patent with at least daily flushes. Morning chest x-ray reveals improvement of left-sided pleural effusion s/p tPA administration approximately 1000 cc of serosanguineous fluid output since administration of tPA and dornase yesterday. Morning chest x-ray also reveals moderate right-sided pleural effusion will place order for right-sided pigtail catheter be performed by Interventional Radiology along with pleural fluid studies. Plan for Chemical decortication (day 2) and will plan to repeat x 3 days. tPA 4mg in 50cc NS given through the left chest tube without difficulty @ 12:25pm.? Chest tube remained clamped x 2 hours, then DNAse 5mg in 30cc NS was given through the chest tube @ 2:25pm.? Keep tube clamped x 4 hours.? RN to unclamp chest tube at stop cock and blue pleural tubing clamp, and place back to -20 continuous wall suction @ 6:25pm. Call Thoracic Surgery for any questions or concerns regarding the chest tube. Call Thoracic Surgery for any frankly bloody output from the chest tube of >100cc in 1 hour, >400cc in 8 hours, and/or signs of symptomatic anemia. Patient came in with profound thrombocytopenia and coagulopathy. The coagulopathy was reversed and the platelets have improved significantly, but do continue to be on the lower side. Will need to check CBC daily to ensure platelets do not continue to drop which then may be a contraindication to further chemical decortication. Monitor for any s/sx bleeding from the chest tube following every dose of alteplase/DNAse. Right pleural effusion Continues to have a moderate right-sided pleural effusion. Will plan for right-sided pigtail catheter placement be performed by Interventional Radiology. Patient made NPO For planned procedure. Case discussed with Dr. Newton. (2) Infective endocarditis: Status: Acute (3) Septic embolism: Status: Acute (4) Cocaine use disorder, severe, dependence: Status: Acute (5) Opioid use disorder, severe, dependence: Status: Acute (6) Bacteremia: Status: Acute (7) Acute hyponatremia: Status: Acute (8) MELITON (acute kidney injury): Status: Acute (9) Pneumonia: Status: Acute (10) Thrombocytopenia: Status: Acute Fall Risk Details Current Medications: Current Medications Acetaminophen (Acetaminophen 325 Mg Tablet) 650 mg PO Q6H PRN PRN Reason: Fever Last Admin: 04/08/21 16:27 Dose: 650 mg Documented by: Benzonatate (Benzonatate 100 Mg Capsule) 100 mg PO TID PRN PRN Reason: Cough Last Admin: 04/08/21 10:36 Dose: 100 mg Documented by: Guaifenesin/Dextromethorphan (Guaifenesin Dm 200/20/10 Ml 10 Ml Syrup) 10 ml PO QID [facility] Last Admin: 04/10/21 08:45 Dose: 10 ml Documented by: Hydroxyzine HCl (Hydroxyzine Hcl 25 Mg Tablet) 25 mg PO Q6H PRN PRN Reason: Anxiety Last Admin: 04/03/21 22:59 Dose: 25 mg Documented by: Cefazolin Sodium/Dextrose (Ancef) 2 gm in 50 mls @ 100 mls/hr IV Q8H [facility] Last Infusion: 04/10/21 05:29 Dose: Infused Documented by: Alteplase, Recombinant 4 mg/ (Sodium Chloride) 50 mls @ 100 mls/hr INTRAPLEUR ONCE ONE Stop: 04/10/21 11:37 Melatonin (Melatonin 3 Mg Tablet) 6 mg PO BEDTIME PRN PRN Reason: Insomnia Last Admin: 04/04/21 01:30 Dose: 6 mg Documented by: Methadone HCl (Methadone Hcl 20 Mg/2 Ml Oral.Conc) 55 mg PO DAILY [facility] Last Admin: 04/10/21 08:44 Dose: 55 mg Documented by: Morphine Sulfate (Morphine Sulfate 4 Mg/Ml Cartridge) 4 mg IVPUSH Q4H PRN; Protocol PRN Reason: Pain, Severe (Pain Scale 7-10) Last Admin: 04/10/21 09:34 Dose: 4 mg Documented by: Nicotine Polacrilex (Nicotine Polacrilex 2 Mg Gum) 2 mg BUCCAL Q2H PRN PRN Reason: Nicotine Cravings Last Admin: 04/04/21 05:47 Dose: 2 mg Documented by: Pharmacy Consult (Consult Rx Perform Med Rec) 1 each MISCELLANE ONCE PRN PRN Reason: Consult order Senna (Sennosides 8.6 Mg Tablet) 17.2 mg PO BEDTIME PRN PRN Reason: Constipation Sodium Chloride (0.9 % Sodium Chloride Flush 3 Ml Syringe) 3 ml IVFLUSH QSHIFT [facility] Last Admin: 04/10/21 08:45 Dose: 3 ml Documented by: Time Spent With Patient Time: Total time spent is greater than 50% in coordination of care (as documented) at patient's floor/unit and/or counseling patient: Time with patient: Greater than 35 minutes Quality Stroke Does the patient have a stroke diagnosis?: No VTE Prior VTE?: No VTE Risk Level:: Medical - moderate - high VTE Device Contraindication: Treatment Not Indicated VTE Drug Contraindication: N/A - Med Ordered
[2021-04-10 11:31] LABS: Albumin Pleural Fluid 1.9
[2021-04-10 11:32] LABS: LDH Pleural Fluid 575
[2021-04-10 11:33] LABS: Amylase Pleural Fluid 38; Glucose Pleural Fluid 56
[2021-04-10] MEDS: Dornase Alfa 5 MG in 0.9 % Sodium Chloride 25 ML 30 MG INTRAPLEUR (14:25)
--- NOTE | 2021-04-10 14:26 | MHC.CLN ---
F/U CURRENTLY NPO FOR PROCEDURE. RECOMMEND RESUME DIET IF/WHEN ABLE WITH ENSURE TID (1050 KCAL, 39 G PROTEIN). HAS DX MALNUTRITION.
--- NOTE | 2021-04-10 14:42 | PM.PNNEP ---
Subjective Subjective Date of Service: 04/10/21 Interval history: Feels improved Physical Exam Vital Signs: Vital Signs: Last Vital Signs Temp 97.3 F 04/10/21 11:00 Pulse 86 04/10/21 11:00 Resp 18 04/10/21 11:00 BP 127/55 L 04/10/21 11:00 Pulse Ox 95 04/10/21 11:00 BMI result Body Mass Index 24.2 Const: General: comfortable Orientation/consciousness: patient oriented x3 Eyes: EOM: EOMs intact bilaterally Neck: Neck: Yes supple Resp: Auscultation: diminished lung sounds Cardio: Rate: regular rate GI: Palpation (GI): Soft to palpation Neuro: General: patient oriented x3 and moves all extremities Objective Data Labs CBC & Chem 7: 04/10/21 05:17 04/09/21 05:15 Labs: Laboratory Results - last 24 hr 04/08/21 04/08/21 04/10/21 14:00 16:00 05:17 WBC 12.6 H RBC 2.81 L Hgb 7.8 L Hct 24.0 L MCV 85.4 MCH 27.8 MCHC 32.5 RDW 18.4 H Plt Count 164 D MPV 9.8 Absolute Nucleated RBC 0.000 Nucleated RBC % (auto) 0.0 Pleural WBC 0.535 Pleural RBC 0.103 Pleural Neutrophils 88 Pleural Lymphocytes 5 Pleural Monocytes 2 Pleural Other Cells 5 Pleural Albumin 1.9 Pleural LDH 575 Pleural Glucose 56 Pleural Amylase 38 Microbiology Microbiology Results: Microbiology 04/08/21 16:00 Pleural Fluid Gram Stain - Final 04/08/21 16:00 Pleural Fluid Routine Culture - Preliminary No growth to date. 04/08/21 16:00 Pleural Fluid Anaerobic Culture - Preliminary No growth to date. 04/07/21 08:23 Blood - Venous Blood Culture - Preliminary No growth after 48 hours. 04/07/21 08:12 Blood - Venous Blood Culture - Preliminary No growth after 48 hours. 03/31/21 21:53 Blood - Venous Blood Culture - Final Staphylococcus aureus Strep dysgalactiae ssp equisim 03/31/21 21:53 Blood - Venous Blood Culture - Final Staphylococcus aureus Strep dysgalactiae ssp equisim 04/01/21 Unknown Urine clean catch - Urine fox top Urine Culture - Final Procedures Date of Service Date of Service: 04/10/21 Assessment & Plan Assessment and plan (1) MELITON (acute kidney injury): Status: Acute Assessment and Plan: MELITON due to tubular injury Differential post infectious GN ( C3/C4 low) Renal function stable Low Sodium due to excess ADH from pulmonary pathology Continue rest of current supportive care Time Spent With Patient Time: Total time spent is greater than 50% in coordination of care (as documented) at patient's floor/unit and/or counseling patient: Progress Note: Quality Stroke Does the patient have a stroke diagnosis?: No
--- NOTE | 2021-04-10 15:09 | MHC.RECOVRN ---
Check in with pt. Pt overall feeling well, comfortable with methadone dose. Pt provided with knitting materials, grateful and looking forward to have something to help pass the time. Will continue to follow.
[2021-04-10 16:17] VITALS: BP 135/62; PULSE 108; RESP 18; TEMP 36.8; O2SAT 93
[2021-04-10 20:00] VITALS: BP 128/58; PULSE 103; RESP 20; TEMP 36.9; O2SAT 98
[2021-04-10] MEDS: Benzonatate 100 MG CAPSULE PO (20:23)
[2021-04-11] VITALS (8 sets, daily range): BP systolic 112–152; BP diastolic 53–65; PULSE 91–116; RESP 17–20; TEMP 36.3–36.9; O2SAT 93–98
[2021-04-11] MEDS: Morphine Sulfate 4 MG/ML CARTRIDGE IVPUSH ×5 (02:55→20:48)
[2021-04-11] MEDS: ceFAZolin Sodium/Dextrose,Iso 2 GM/50 ML PIGGYBACK IV ×3 (03:59→20:06)
[2021-04-11 06:16] LABS: Anion Gap 10 (12-20); Blood Urea Nitrogen 20 mg/dL (9-16); Calcium 8.1 mg/dL (8.4-10.2); Carbon Dioxide 21 mmol/L (22-29); Chloride 101 mmol/L (96-108); Creatinine Clr Calc Pharmacy 54.4; Estimated Glomerular Filt Rate 55; Glucose Random 109 mg/dL (60-115); Potassium 4.5 mmol/L (3.3-5.1); Sodium 127 mmol/L (135-145)
[2021-04-11 06:38] LABS: Hematocrit 22.9 % (37.0-47.0); Hemoglobin 7.5 g/dl (12.0-16.0); Mean Corpuscular HGB Conc 32.8 g/dl (31.0-35.0); Mean Corpuscular Hemoglobin 28.3 pg (27.0-33.0); Mean Corpuscular Volume 86.4 fL (80.0-98.0); Mean Platelet Volume 9.8 fL (9.4-12.3); Platelet Count 212 X10*3/uL (160-400); Red Blood Count 2.65 X10*6/uL (4.20-5.50); Red Cell Distribution Width 18.1 % (11.0-16.0); White Blood Count 12.2 X10*3/uL (4.8-10.8)
[2021-04-11] MEDS: methADONE HCl 20 MG/2 ML ORAL.CONC 55 MG PO (08:40)
[2021-04-11] MEDS: guaiFENesin DM 200/20/10 ML 10 ML SYRUP PO ×4 (08:40→20:06)
[2021-04-11] MEDS: 0.9 % Sodium Chloride Flush 3 ML SYRINGE IVFLUSH (08:50)
--- NOTE | 2021-04-11 09:44 | HO.ADDICTPRO ---
Subjective Subjective Date of Service: 04/11/21 Reason For Visit: PNA, endocarditis Guardianship: No Medical Problems Affecting Mental Status: No Interim History: Met with patient at 08:15 today. Patient awake, alert and oriented, cooperative with interview. denies any withdrawals or cravings this morning. She states that she feels comfortable at current dose of 55 mg daily. She does report that 6 months ago she was at [facility] methadone clinic, and her dose was 70 mg. She reports that that is her goal to return to. She does report though that today she feels comfortable with 55 mg. Medication Compliance: Yes Side effects from medications: No Review of Systems Acute medical concerns: No Medical Review of Systems: unchanged Mental Status Exam Mental Status Exam Narrative: Well-developed, well-nourished female, in NAD. No evidence of any type of opioid withdrawals or cravings noted. Patient Appearance: Well Grooomed, Fatigued and Appropriate Patient Orientation: Person, Place, Time and Situation Level of Consciousness: Appropriate and Alert Patient Behavior: Appropriate and Cooperative Mood Description: Calm and Appropriate Affect Description: Calm and Appropriate Patient Cognition Impaired: No Ability to Follow Directions: Excellent Speech Pattern: Clear and Coherent Memory Description: Intact Hallucinations: None Delusions: Not Present Thought Process: Intact, Goal Oriented and Linear Thought Content: positive for Intact, positive for Goal Oriented, positive for Linear and positive for Logical Judgement: Fair Diagnostics Vital Signs (24Hr): Vital Signs - 24 hr 04/10/21 11:00 04/10/21 16:17 04/10/21 20:00 Temperature 97.3 F 98.3 F 98.5 F Pulse Rate 86 108 H 103 H Respiratory Rate 18 18 20 Blood Pressure 127/55 L 135/62 128/58 L Pulse Oximetry 95 93 98 04/11/21 00:00 04/11/21 04:00 04/11/21 07:42 Temperature 98.0 F 97.4 F 97.5 F Pulse Rate 102 H 95 95 Respiratory Rate 17 17 20 Blood Pressure 112/59 L 115/53 L 118/59 L Pulse Oximetry 94 95 98 BMI result Body Mass Index 24.2 Labs Results: 04/11/21 05:38 04/11/21 05:38 Labs: Laboratory Results - last 48 hr 04/08/21 04/08/21 04/10/21 14:00 16:00 05:17 WBC 12.6 H RBC 2.81 L Hgb 7.8 L Hct 24.0 L MCV 85.4 MCH 27.8 MCHC 32.5 RDW 18.4 H Plt Count 164 D MPV 9.8 Absolute Nucleated RBC 0.000 Nucleated RBC % (auto) 0.0 Sodium Potassium Chloride Carbon Dioxide Anion Gap BUN Creatinine Estim Creat Clear Calc Estimated GFR Random Glucose Calcium Pleural WBC 0.535 Pleural RBC 0.103 Pleural Neutrophils 88 Pleural Lymphocytes 5 Pleural Monocytes 2 Pleural Other Cells 5 Pleural Albumin 1.9 Pleural LDH 575 Pleural Glucose 56 Pleural Amylase 38 04/11/21 04/11/21 05:38 05:38 WBC 12.2 H RBC 2.65 L Hgb 7.5 L Hct 22.9 L MCV 86.4 MCH 28.3 MCHC 32.8 RDW 18.1 H Plt Count 212 D MPV 9.8 Absolute Nucleated RBC 0.000 Nucleated RBC % (auto) 0.0 Sodium 127 L Potassium 4.5 Chloride 101 Carbon Dioxide 21 L Anion Gap 10 L BUN 20 H Creatinine 1.21 Estim Creat Clear Calc 54.4 Estimated GFR 55 Random Glucose 109 Calcium 8.1 L Pleural WBC Pleural RBC Pleural Neutrophils Pleural Lymphocytes Pleural Monocytes Pleural Other Cells Pleural Albumin Pleural LDH Pleural Glucose Pleural Amylase Imaging Radiology Impressions: ITS Impressions Chest X-Ray 03/31/21 22:26 IMPRESSION: Patchy bilateral airspace disease, most consistent with Covid pneumonia. Abdomen Ultrasound 04/01/21 09:54 IMPRESSION: Enlarged liver. Thickened edematous gallbladder wall. No gallstones are seen. Differential would include gallbladder wall changes related to liver disease, cholangitis, low albumin, CHF, acalculous cholecystitis and pancreatitis. If there is clinical concern of acalculous cholecystitis, HIDA scan would be recommended. Limited visualization of the pancreas. Small right pleural effusion. Pulmonary Perfusion Imaging 04/01/21 13:43 IMPRESSION: Intermediate probability of pulmonary embolism. These abnormalities may be due to pulmonary emboli or severe pneumonitis, or a combination of the two. If not contraindicated, CTA pulmonary embolism protocol would be helpful in differentiating these. Chest CTA 04/03/21 11:48 IMPRESSION: Very limited exam due to artifact from respiratory motion and extensive airspace disease and adenopathy. No large or central pulmonary embolism is seen. Evaluation of the segmental and subsegmental pulmonary arteries is markedly limited. Multiple bilateral pulmonary nodules, some of which appear cavitary and areas of airspace disease or consolidation in the lower lobes suggestive of pneumonia, left greater than right. Bilateral pleural effusions left greater than right. The left pleural effusion is partially loculated. Enlarged hilar and mediastinal lymph nodes. Chest CT appearance is somewhat atypical for Covid infection. Septic emboli, granulomatous or fungal infection, vasculitis, other causes of cavitary pneumonia such as Staphylococcus and Klebsiella pneumonia and neoplasm should be also considered. Prominent liver and spleen. Right axillary lymphadenopathy. VTE: neg Chest X-Ray 04/04/21 20:32 IMPRESSION: Worsening bilateral pulmonary opacities Small to moderate left effusion is minimally increased in size. Chest X-Ray 04/06/21 08:32 IMPRESSION: Worsened bilateral pleural effusions, loculated on the left. Persistent bilateral airspace disease and nodular opacities consistent with multifocal pneumonia. New right midlung opacity may represent fluid in the right major fissure or developing consolidative pneumonia. Chest CT 04/06/21 14:09 IMPRESSION: Worsened bilateral pleural effusions, left greater than right. The left pleural fluid is presumably loculated as it is seen tracking along the left lateral chest wall in a nondependent position. Innumerable nodular opacities and areas of nodular consolidation are seen, many of which are cavitary. These are increased in number from the prior study 04/03/2021. The previously seen abnormalities a roughly similar in size. The overall appearance, particularly with the cavitation, is more suggestive of septic emboli or other multifocal pneumonia, rather than viral COVID pneumonitis. In addition, there is worsening confluent consolidation at the left lung base and in the superior segment of the right lower lobe consistent with worsening focal consolidative pneumonia. Fleischner guidelines were followed. Chest Tube Insertion 04/08/21 16:36 IMPRESSION: Successful CT fluoroscopy-guided insertion of a 6.3-Danish left chest tube catheter with its tip along the left lateral chest wall connected to waterseal drainage and subsequently to be connected to -20 cm of wall suction. There were no immediate complications. The patient was sent to the floor in satisfactory condition same as received previously. Chest X-Ray 04/09/21 08:20 IMPRESSION: Left-sided chest tube in place with no significant change in left loculated pleural effusion. Small amount of air seen within the left pleural space, likely either iatrogenic from a small amount of air introduced with chest tube or related to trapped lung with some fluid being removed. Increase in size of partially loculated right pleural effusion. Diffuse bilateral regions of interstitial and airspace disease. Chest X-Ray 04/10/21 07:20 IMPRESSION: Interval decrease in left pleural effusion. New small left pneumothorax. Bilateral airspace disease and nodular opacities unchanged. Moderate size right pleural effusion. 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 Chest X-Ray 04/11/21 06:42 IMPRESSION: No significant change from prior. Small left and moderate right pleural effusions. Patchy bilateral opacities. Medications Medications Current Medications Acetaminophen (Acetaminophen 325 Mg Tablet) 650 mg PO Q6H PRN PRN Reason: Fever Last Admin: 04/08/21 16:27 Dose: 650 mg Documented by: Benzonatate (Benzonatate 100 Mg Capsule) 100 mg PO TID PRN PRN Reason: Cough Last Admin: 04/10/21 20:23 Dose: 100 mg Documented by: Guaifenesin/Dextromethorphan (Guaifenesin Dm 200/20/10 Ml 10 Ml Syrup) 10 ml PO QID [facility] Last Admin: 04/11/21 08:40 Dose: 10 ml Documented by: Hydroxyzine HCl (Hydroxyzine Hcl 25 Mg Tablet) 25 mg PO Q6H PRN PRN Reason: Anxiety Last Admin: 04/03/21 22:59 Dose: 25 mg Documented by: Cefazolin Sodium/Dextrose (Ancef) 2 gm in 50 mls @ 100 mls/hr IV Q8H [facility] Last Infusion: 04/11/21 04:38 Dose: Infused Documented by: Melatonin (Melatonin 3 Mg Tablet) 6 mg PO BEDTIME PRN PRN Reason: Insomnia Last Admin: 04/04/21 01:30 Dose: 6 mg Documented by: Methadone HCl (Methadone Hcl 20 Mg/2 Ml Oral.Conc) 55 mg PO DAILY [facility] Last Admin: 04/11/21 08:40 Dose: 55 mg Documented by: Morphine Sulfate (Morphine Sulfate 4 Mg/Ml Cartridge) 4 mg IVPUSH Q4H PRN; Protocol PRN Reason: Pain, Severe (Pain Scale 7-10) Last Admin: 04/11/21 08:41 Dose: 4 mg Documented by: Nicotine Polacrilex (Nicotine Polacrilex 2 Mg Gum) 2 mg BUCCAL Q2H PRN PRN Reason: Nicotine Cravings Last Admin: 12/11/21 05:47 Dose: 2 mg Documented by: Pharmacy Consult (Consult Rx Perform Med Rec) 1 each MISCELLANE ONCE PRN PRN Reason: Consult order Senna (Sennosides 8.6 Mg Tablet) 17.2 mg PO BEDTIME PRN PRN Reason: Constipation Sodium Chloride (0.9 % Sodium Chloride Flush 3 Ml Syringe) 3 ml IVFLUSH QSHIFT [place] Last Admin: 04/11/21 08:50 Dose: 3 ml Documented by: Allergies Allergies Allergy/AdvReac Type Severity Reaction Status Date / Time No Known Allergies Allergy Verified 05/12/20 05:11 Assessment & Plan Assessment & Plan (1) Opioid use disorder, severe, dependence: Status: Acute Code(s): F11.20 - Opioid dependence, uncomplicated Assessment and Plan: Patient reports she is not experiencing any opioid withdrawals or cravings at this time. Reports that she feels comfortable with methadone 55 mg daily. (2) Cocaine use disorder, severe, dependence: Status: Acute Code(s): F14.20 - Cocaine dependence, uncomplicated Assessment and Plan: 1. Continue to monitor patient and methadone dosing. 2. Recovery/Addiction Team to continue following patient while hospitalized. I spent ___10___ minutes with the patient and/or on the patient floor today, greater than?50% of which was spent counseling/coordinating care. Education Patient educated on: diagnosis, substance abuse and therapeutic strategies Informed Consent: understands
--- NOTE | 2021-04-11 11:11 | P.PNIM_ITS ---
Subjective Subjective Date of Service: 04/11/21 Interval History: Pain under control Coughing up raad sputum No fever Review of Systems Review of Systems: Yes all other systems are reviewed and are negative Physical Exam Vital Signs: Vital Signs: Last Vital Signs Temp 97.5 F 04/11/21 07:42 Pulse 95 04/11/21 07:42 Resp 20 04/11/21 07:42 BP 118/59 L 04/11/21 07:42 Pulse Ox 98 04/11/21 07:42 BMI result Body Mass Index 24.2 Gen: in NAD on 4L O2 via NC HEENT: sclera anicteric, moist mucus membranes Neck: supple Lungs: diminished L>R base, L chest tube to wall suction with serosanguinous drainage Heart: regular rate and rhythm Abd: soft, non-tender, non-distended Ext: no edema Skin: warm/well-perfused, R forearm ulcer with raised margins without drainage Neuro: alert and oriented x3, no focal findings Psych: restricted affect Objective Data Active Medications Acetaminophen (Acetaminophen 325 Mg Tablet) 650 mg PO Q6H PRN PRN Reason: Fever Last Admin: 04/08/21 16:27 Dose: 650 mg Documented by: NOEL Benzonatate (Benzonatate 100 Mg Capsule) 100 mg PO TID PRN PRN Reason: Cough Last Admin: 04/10/21 20:23 Dose: 100 mg Documented by: ALON Guaifenesin/Dextromethorphan (Guaifenesin Dm 200/20/10 Ml 10 Ml Syrup) 10 ml PO QID [facility] Last Admin: 04/11/21 08:40 Dose: 10 ml Documented by: JULES Hydroxyzine HCl (Hydroxyzine Hcl 25 Mg Tablet) 25 mg PO Q6H PRN PRN Reason: Anxiety Last Admin: 04/03/21 22:59 Dose: 25 mg Documented by: CARMEN Cefazolin Sodium/Dextrose (Ancef) 2 gm in 50 mls @ 100 mls/hr IV Q8H [facility] Last Infusion: 04/11/21 04:38 Dose: 0 mls/hr Documented by: ALON Melatonin (Melatonin 3 Mg Tablet) 6 mg PO BEDTIME PRN PRN Reason: Insomnia Last Admin: 04/04/21 01:30 Dose: 6 mg Documented by: CARMEN Methadone HCl (Methadone Hcl 20 Mg/2 Ml Oral.Conc) 55 mg PO DAILY [facility] Last Admin: 04/11/21 08:40 Dose: 55 mg Documented by: JULES Morphine Sulfate (Morphine Sulfate 4 Mg/Ml Cartridge) 4 mg IVPUSH Q4H PRN; Protocol PRN Reason: Pain, Severe (Pain Scale 7-10) Last Admin: 04/11/21 08:41 Dose: 4 mg Documented by: JULES Nicotine Polacrilex (Nicotine Polacrilex 2 Mg Gum) 2 mg BUCCAL Q2H PRN PRN Reason: Nicotine Cravings Last Admin: 04/04/21 05:47 Dose: 2 mg Documented by: CARMEN Pharmacy Consult (Consult Rx Perform Med Rec) 1 each MISCELLANE ONCE PRN PRN Reason: Consult order Senna (Sennosides 8.6 Mg Tablet) 17.2 mg PO BEDTIME PRN PRN Reason: Constipation Sodium Chloride (0.9 % Sodium Chloride Flush 3 Ml Syringe) 3 ml IVFLUSH QSHIFT [facility] Last Admin: 04/11/21 08:50 Dose: 3 ml Documented by: JULES Labs CBC & Chem 7: 04/11/21 05:38 04/11/21 05:38 Labs: Laboratory Results - last 24 hr 04/08/21 04/11/21 04/11/21 16:00 05:38 05:38 MCV 86.4 MCH 28.3 MCHC 32.8 RDW 18.1 H Plt Count 212 D MPV 9.8 Absolute Nucleated RBC 0.000 Nucleated RBC % (auto) 0.0 Anion Gap 10 L Estim Creat Clear Calc 54.4 Estimated GFR 55 Random Glucose 109 Calcium 8.1 L Pleural Albumin 1.9 Pleural LDH 575 Pleural Glucose 56 Pleural Amylase 38 Microbiology Microbiology Results: Microbiology 04/08/21 16:00 Gram Stain - Final Pleural Fluid Routine Culture - Final No growth after 2 days Anaerobic Culture - Preliminary No growth to date. Assessment and Plan (1) Pleural effusion: Status: Acute (2) Septic embolism: Status: Acute (3) Infective endocarditis: Status: Acute (4) Cocaine use disorder, severe, dependence: Status: Acute (5) Opioid use disorder, severe, dependence: Status: Acute (6) Acute respiratory failure with hypoxia: Status: Acute (7) Transaminitis: Status: Acute (8) Bacteremia: Status: Acute (9) Acute hyponatremia: Status: Acute (10) Leukocytosis: Status: Acute (11) Pneumonia: Status: Acute (12) Thrombocytopenia: Status: Acute (13) Anemia: Status: Acute Assessment and Plan: hospital d#12 25yo F with history of IV heroin + cocaine abuse, recent RUE cellulitis with open wound p/w SOB admitted for severe sepsis, found to be bacteremic with TV endocarditis and cavitary septic emboli + loculated pleural effusion # severe sepsis # MSSA + Streptococcus dysgalactiae [[employer]] bacteremia/infective endocard itis [2.77 x 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] # multifocal pneumonia with cavitary septic emboli - WBC and lactate normalized, got 7d of vancomycin- changed to cefazolin 2g IV q8h 04/08/21, on day #442, PICC ordered since BCx from 04/07 cleared, to be done 04/13/21 # loculated L pleural effusion - Pulm + Thoracic consulted, s/p L chest tube 04/08, on d#3/ of chemical decortication with intrapleural tPA administerd by Thoracic Surgery; pt declined R chest tube yesterday - exudative pleural fluid, culture-negative thus far # anemia of chronic inflammation - tranfused 3u pRBCs 04/03/21 + 2u pRBCs 04/07/21; monitor Hb # coagulopathy - vit K 10 mg PO given; monitor INR # acute hypoxic respiratory failure - wean O2 as tolerated # thrombocytopenia - likely due to sepsis + HCV, resolved # MAT-associated wound - 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 # back pain - no focal neurologic signs, pt declines MRI of spine, continue to monitor -> improved - oxycodone + morphine prn # MELITON - SCr normalized, avoid nephrotoxins + continue to monitor # hypoNa - mild, 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 # transaminasemia - resolved, likely due to sepsis # HCV - Ab positive, viral load pending; HBV immune; HIV negative # opioid use disorder - continue methadone 55 mg/d; Addiction Medicine following # cocaine abuse - prn hydroxyzine, CARE Team # tobacco abuse - NRT # protein-calorie malnutrition - Ensure supplementation # VTE ppx - SCDs # dispo - will need STR for prolonged IV ABX Quality Stroke Does the patient have a stroke diagnosis?: No VTE Prior VTE?: No VTE Risk Level:: Medical - moderate - high VTE Device Contraindication: Treatment Not Indicated VTE Drug Contraindication: N/A - Med Ordered
--- NOTE | 2021-04-11 12:52 | P.PNTS_ITS ---
Subjective Subjective Date of Service: 04/21/21 Patient reports: no new complaints Interval history: Patient reports some discomfort to left chest at times. Stretches to feel better. Left pigtail chest tube currently to -20cm continuous LWS. On supplemental O2. Physical Exam Vital Signs: Vital Signs: Last Vital Signs Temp 97.3 F 04/11/21 11:54 Pulse 91 04/11/21 11:54 Resp 19 04/11/21 11:54 BP 152/58 H 04/11/21 11:54 Pulse Ox 98 04/11/21 11:54 BMI result Body Mass Index 24.2 Const: General: cooperative, comfortable, no acute distress and ill appearing Nutritional Appearance: well nourished Orientation/consciousness: oriented to person, oriented to place, oriented to time and patient oriented x3 Limitations: no limitations HENMT: Head: Yes normal to inspection, Yes normocephalic and Yes atraumatic Mouth: other (Dry, crackled lips) Eyes: Visual Richardson: normal visual richardson by confrontation Alignment and Position: alignment normal Periorbital: periorbital findings normal Conjunctivae: conjunctivae normal Sclerae: sclerae normal Pupils: Equal, round and reactive pupils present and Pupil accommodation reflex normal EOM: EOMs intact bilaterally Neck: Neck: Yes normal visual inspection, Yes full ROM, Yes no lymphadenopathy, Yes trachea midline, Yes supple, No lymphadenopathy, No tender and No tracheal deviation Lymphatic: no lymphadenopathy noted Chest: Chest palpation & inspection: normal inspection of the chest and no c repitus Resp: Other: On supplemental O2, speaking in full sentences. Left pigtail chest tube to -20cm continuous LWS. Drained an additional cc overnight following second dose of Alteplase and DNase. Chest tube draininag serousanguinous/tea colored fluid. No visible air leak on exam. Effort & Inspection: normal respiratory effort, able to speak in complete sentences, normal respiratory pattern, no audible wheezes, no cough, no pursed lip breathing, no respiratory distress, no stridor, not tachypneic, no tracheal deviation and other (Patient speaking in full sentences on room air. Chest tube to *waterseal/landa) Auscultation: crackles Cardio: Jugular venous distension: no JVD Palpation: normal PMI Rate: regular rate Rhythm: regular rhythm Heart sounds: S1 normal heart sound present, S2 normal heart sound present, no click, no gallops, no murmurs and no rubs GI: Inspection: Yes normal to inspection Auscultation: normal bowel sounds : General: Yes no CVA tenderness Back/Spine/Pelvis: Back: no CVA tenderness Thoracic/Lumbar Spine: thoracic and lumbar spine normal to inspection Skin: General skin exam: no rashes or lesions noted and dry skin Rashes: no rashes Neuro: General: oriented to person, oriented to place, oriented to time, patient oriented x3 and gait normal Cranial nerves: Yes Equal, round and reactive pupils present Extrem: General: Yes normal to inspection, Yes full ROM, Yes capillary refill normal, Yes normal gait and Yes edema Psych: Appearance: grossly normal and well kempt Mental Status: mental status grossly normal Speech and movement: Normal speech and movement present and Clear speech present Affect: normal affect Attitude: cooperative Thought process: Normal thought process present Thought content: Normal thought content present Procedures Date of Service Date of Service: 04/11/21 Progress Note: A&P Assessment and plan (1) Pleural effusion: Status: Acute Assessment and Plan: 25 year old female with IVDA (heroin, cocaine) admitted to [facility] with severe sepsis with anemia and coagulopathy treated with PRBc and vitamin K, bacteremia, tricuspid valve endocarditis, septic pulmonary emboli, bilateral pleural effusion, thrombocytopenia, and hyponatremia.? +HCV ab. Loculated left pleural effusion * s/p IR pigtail catheter placement on 04/08/21.? Unfortunately, this catheter is extremely thin and not ideal for drainage of a complex effusion.? Will need to ensure tubing stays patent with at least daily flushes. * Morning chest x-ray reveals no significant change from prior. Small left and moderate right pleural effusions. Patchy bilateral opacities. * Plan for Chemical decortication and will plan to repeat x 3 days. * Alteplase 4mg in 50cc NS given through the left chest tube without difficulty @ 12:45pm.? Chest tube remained clamped x 2 hours, then DNAse 5mg in 30cc NS was given through the chest tube @ 2:45pm.? Keep tube clamped x 4 hours.? RN to unclamp chest tube at stop cock and blue pleural tubing clamp, and place back to -20 continuous wall suction @ 6:45pm. * Call Thoracic Surgery for any questions or concerns regarding the chest tube. * Call Thoracic Surgery for any frankly bloody output from the chest tube of >100cc in 1 hour, >400cc in 8 hours, and/or signs of symptomatic anemia. * Patient came in with profound thrombocytopenia and coagulopathy.? The coagulopathy was reversed and the platelets have improved significantly, but do continue to be on the lower side.? Will need to check CBC daily to ensure platelets do not continue to drop which then may be a contraindication to further chemical decortication. * H&H today 7.5/22.9 slowly downtrending. Platelets 212 today, uptrending * Monitor for any s/sx bleeding from the chest tube following every dose of alteplase/DNAse. * Continue on IV abx Right pleural effusion * Continues to have a moderate right-sided pleural effusion. * Will plan for right-sided pigtail catheter placement be performed by Interventional Radiology on Tuesday04/13/21 and pleural fluid studies for Tuesday as patient refused yesterday and no IR providers available over the weekend. Case discussed with Dr. Newton. Please do not hesitate to call with any questions or concerns. Fall Risk Details Current Medications: Current Medications Acetaminophen (Acetaminophen 325 Mg Tablet) 650 mg PO Q6H PRN PRN Reason: Fever Last Admin: 04/08/21 16:27 Dose: 650 mg Documented by: Benzonatate (Benzonatate 100 Mg Capsule) 100 mg PO TID PRN PRN Reason: Cough Last Admin: 04/10/21 20:23 Dose: 100 mg Documented by: Guaifenesin/Dextromethorphan (Guaifenesin Dm 200/20/10 Ml 10 Ml Syrup) 10 ml PO QID [facility] Last Admin: 04/11/21 12:43 Dose: 10 ml Documented by: Hydroxyzine HCl (Hydroxyzine Hcl 25 Mg Tablet) 25 mg PO Q6H PRN PRN Reason: Anxiety Last Admin: 04/03/21 22:59 Dose: 25 mg Documented by: Cefazolin Sodium/Dextrose (Ancef) 2 gm in 50 mls @ 100 mls/hr IV Q8H [facility] Last Admin: 04/11/21 12:09 Dose: 100 mls/hr Documented by: Dornase Armando 5 mg/ Sodium (Chloride) 30 mls @ 0 mls/hr INTRAPLEUR ONCE ONE Stop: 04/11/21 14:31 Melatonin (Melatonin 3 Mg Tablet) 6 mg PO BEDTIME PRN PRN Reason: Insomnia Last Admin: 04/04/21 01:30 Dose: 6 mg Documented by: Methadone HCl (Methadone Hcl 20 Mg/2 Ml Oral.Conc) 55 mg PO DAILY [facility] Last Admin: 04/11/21 08:40 Dose: 55 mg Documented by: Morphine Sulfate (Morphine Sulfate 4 Mg/Ml Cartridge) 4 mg IVPUSH Q4H PRN; Protocol PRN Reason: Pain, Severe (Pain Scale 7-10) Last Admin: 04/11/21 12:46 Dose: 4 mg Documented by: Nicotine Polacrilex (Nicotine Polacrilex 2 Mg Gum) 2 mg BUCCAL Q2H PRN PRN Reason: Nicotine Cravings Last Admin: 04/04/21 05:47 Dose: 2 mg Documented by: Pharmacy Consult (Consult Rx Perform Med Rec) 1 each MISCELLANE ONCE PRN PRN Reason: Consult order Senna (Sennosides 8.6 Mg Tablet) 17.2 mg PO BEDTIME PRN PRN Reason: Constipation Sodium Chloride (0.9 % Sodium Chloride Flush 3 Ml Syringe) 3 ml IVFLUSH QSHIFT [facility] Last Admin: 04/11/21 08:50 Dose: 3 ml Documented by: Time Spent With Patient Time: Total time spent is greater than 50% in coordination of care (as d ocumented) at patient's floor/unit and/or counseling patient: Time with patient: 15 - 24 minutes Quality Stroke Does the patient have a stroke diagnosis?: No VTE Prior VTE?: No VTE Risk Level:: Medical - moderate - high VTE Device Contraindication: Treatment Not Indicated VTE Drug Contraindication: N/A - Med Ordered
--- NOTE | 2021-04-11 13:03 | P.EN_ITS ---
Event Note Date of Service: 04/11/21 Event Note: THORACIC SURGERY: * Alteplase 4mg in 50mL NS instilled intrapleurally through left pigtail chest tube at 12:45pm on 04/11/21 * KEEP CHEST TUBE CLAMPED FOR 2 HOURS. DO NOT UNCLAMP * Will instill DNase Armando intrapleurally at 2:45pm on 04/11/21 * Encourage frequent movement in chair following instillation
--- NOTE | 2021-04-11 13:03 | PM.EVENT ---
Event Note Date of Service: 04/11/21 Event Note: THORACIC SURGERY: Alteplase 4mg in 50mL NS instilled intrapleurally through left pigtail chest tube at 12:45pm on 04/11/21 KEEP CHEST TUBE CLAMPED FOR 2 HOURS. DO NOT UNCLAMP Will instill DNase Armando intrapleurally at 2:45pm on 04/11/21 Encourage frequent movement in chair following instillation
--- NOTE | 2021-04-11 14:40 | PM.EVENT ---
Event Note Date of Service: 04/11/21 Event Note: THORACIC SURGERY: -Dornase Armando 5mg in 30ML NS instilled INTPL through left pigtail chest tube at 2:45pm on 04/11/21 -KEEP CHEST TUBE CLAMPED FOR 4 HOURS. UNCLAMP CHEST TUBE AT 6:45PM ON 04/11/21 -UNCLAMP BLUE STOP COCK AND CHEST TUBE CLAMP ON TUBING -Return chest tube BACK TO -20CM CONTINUOUS LWS at 6:45PM on 04/11/21 -Call thoracic surgery if patient has LEONEL RED BLOOD > 100cc/hr or LEONEL RED BLOOD 400cc or more in 8 hours -Call if patient has worsening shortness of breath, respiratory distress, or difficulty breathing
[2021-04-11] MEDS: Dornase Alfa 5 MG in 0.9 % Sodium Chloride 25 ML 25 MG INTRAPLEUR (14:47)
--- NOTE | 2021-04-11 15:41 | PC.NURSE ---
lEFT POSTERIOR CHEST TUBE CLAMPED ORDERED
--- NOTE | 2021-04-11 15:42 | PC.NURSE ---
P patient has no IV access I RN attempted to insert new IV in but unable E message sent to a security guard supervisor asking for help with insertion
--- NOTE | 2021-04-11 16:06 | PM.PNNEP ---
Subjective Subjective Date of Service: 04/11/21 Interval history: Pain under control; All recent data reviewed Physical Exam Vital Signs: Vital Signs: Last Vital Signs Temp 97.3 F 04/11/21 11:54 Pulse 91 04/11/21 11:54 Resp 19 04/11/21 11:54 BP 152/58 H 04/11/21 11:54 Pulse Ox 98 04/11/21 11:54 BMI result Body Mass Index 24.2 Const: General: comfortable Orientation/consciousness: patient oriented x3 Eyes: EOM: EOMs intact bilaterally Neck: Neck: Yes supple Resp: Auscultation: diminished lung sounds Cardio: Rate: regular rate GI: Palpation (GI): Soft to palpation Neuro: General: patient oriented x3 and moves all extremities Objective Data Labs CBC & Chem 7: 04/11/21 05:38 04/11/21 05:38 Labs: Laboratory Results - last 24 hr 04/11/21 04/11/21 05:38 05:38 WBC 12.2 H RBC 2.65 L Hgb 7.5 L Hct 22.9 L MCV 86.4 MCH 28.3 MCHC 32.8 RDW 18.1 H Plt Count 212 D MPV 9.8 Absolute Nucleated RBC 0.000 Nucleated RBC % (auto) 0.0 Sodium 127 L Potassium 4.5 Chloride 101 Carbon Dioxide 21 L Anion Gap 10 L BUN 20 H Creatinine 1.21 Estim Creat Clear Calc 54.4 Estimated GFR 55 Random Glucose 109 Calcium 8.1 L Microbiology Microbiology Results: Microbiology 04/08/21 16:00 Pleural Fluid Gram Stain - Final 04/08/21 16:00 Pleural Fluid Routine Culture - Final No growth after 2 days 04/08/21 16:00 Pleural Fluid Anaerobic Culture - Preliminary No growth to date. 04/07/21 08:23 Blood - Venous Blood Culture - Preliminary No growth after 48 hours. 04/07/21 08:12 Blood - Venous Blood Culture - Preliminary No growth after 48 hours. 03/31/21 21:53 Blood - Venous Blood Culture - Final Staphylococcus aureus Strep dysgalactiae ssp equisim 03/31/21 21:53 Blood - Venous Blood Culture - Final Staphylococcus aureus Strep dysgalactiae ssp equisim 04/01/21 Unknown Urine clean catch - Urine fox top Urine Culture - Final Procedures Date of Service Date of Service: 12/18/21 Assessment & Plan Assessment and plan (1) MELITON (acute kidney injury): Status: Acute Assessment and Plan: MELITON due to tubular injury Differential post infectious GN ( C3/C4 low) Renal function stable Low Sodium due to excess ADH from pulmonary pathology Continue current supportive care Time Spent With Patient Time: Total time spent is greater than 50% in coordination of care (as documented) at patient's floor/unit and/or counseling patient: Progress Note: Quality Stroke Does the patient have a stroke diagnosis?: No
--- NOTE | 2021-04-11 19:09 | PC.NURSE ---
Chest tube unclamped as ordered at 184,no increase in drainage noted since ,blood tinged drainage present in the tubing
[2021-04-12] VITALS (8 sets, daily range): BP systolic 119–135; BP diastolic 44–59; PULSE 89–103; RESP 17–22; TEMP 36.4–37.1; O2SAT 94–97
[2021-04-12] MEDS: 0.9 % Sodium Chloride Flush 3 ML SYRINGE IVFLUSH ×4 (00:16→23:40)
[2021-04-12] MEDS: Morphine Sulfate 4 MG/ML CARTRIDGE IVPUSH ×6 (00:43→21:55)
[2021-04-12] MEDS: ceFAZolin Sodium/Dextrose,Iso 2 GM/50 ML PIGGYBACK IV ×3 (04:56→21:22)
[2021-04-12 05:53] LABS: Hematocrit 21.9 % (37.0-47.0); Hemoglobin 7.1 g/dl (12.0-16.0); Mean Corpuscular HGB Conc 32.4 g/dl (31.0-35.0); Mean Corpuscular Hemoglobin 28.2 pg (27.0-33.0); Mean Corpuscular Volume 86.9 fL (80.0-98.0); Mean Platelet Volume 8.7 fL (9.4-12.3); Platelet Count 194 X10*3/uL (160-400); Red Blood Count 2.52 X10*6/uL (4.20-5.50); White Blood Count 12.1 X10*3/uL (4.8-10.8)
[2021-04-12 06:07] LABS: Anion Gap 13 (12-20); Blood Urea Nitrogen 19 mg/dL (9-16); Calcium 8.3 mg/dL (8.4-10.2); Carbon Dioxide 21 mmol/L (22-29); Chloride 100 mmol/L (96-108); Creatinine Clr Calc Pharmacy 53.1; Estimated Glomerular Filt Rate 54; Glucose Random 99 mg/dL (60-115); Potassium 4.7 mmol/L (3.3-5.1); Sodium 129 mmol/L (135-145)
[2021-04-12] MEDS: methADONE HCl 20 MG/2 ML ORAL.CONC 55 MG PO (08:36)
[2021-04-12] MEDS: guaiFENesin DM 200/20/10 ML 10 ML SYRUP PO ×4 (08:36→21:21)
--- NOTE | 2021-04-12 10:58 | PM.PNNEP ---
Subjective Subjective Date of Service: 04/12/21 Interval history: Pain under control; All recent data reviewed Physical Exam Vital Signs: Vital Signs: Last Vital Signs Temp 98.3 F 04/12/21 07:55 Pulse 90 04/12/21 07:55 Resp 19 04/12/21 07:55 BP 120/44 L 04/12/21 07:55 Pulse Ox 97 04/12/21 07:55 BMI result Body Mass Index 24.2 Const: General: no acute distress Orientation/consciousness: patient oriented x3 HENMT: Head: Yes normocephalic Eyes: EOM: EOMs intact bilaterally Neck: Neck: Yes supple Resp: Auscultation: diminished lung sounds Cardio: Rate: regular rate GI: Palpation (GI): Soft to palpation Neuro: General: patient oriented x3 and moves all extremities Objective Data Labs CBC & Chem 7: 04/12/21 05:36 04/12/21 05:36 Labs: Laboratory Results - last 24 hr 04/12/21 04/12/21 05:36 05:36 WBC 12.1 H RBC 2.52 L Hgb 7.1 L Hct 21.9 L MCV 86.9 MCH 28.2 MCHC 32.4 RDW 18.0 H Plt Count 194 MPV 8.7 L Absolute Nucleated RBC 0.000 Nucleated RBC % (auto) 0.0 Sodium 129 L Potassium 4.7 Chloride 100 Carbon Dioxide 21 L Anion Gap 13 BUN 19 H Creatinine 1.24 Estim Creat Clear Calc 53.1 Estimated GFR 54 Random Glucose 99 Calcium 8.3 L Microbiology Microbiology Results: Microbiology 04/07/21 08:23 Blood - Venous Blood Culture - Final No growth after 5 days. 04/07/21 08:12 Blood - Venous Blood Culture - Final No growth after 5 days. 04/08/21 16:00 Pleural Fluid Gram Stain - Final 04/08/21 16:00 Pleural Fluid Routine Culture - Final No growth after 2 days 04/08/21 16:00 Pleural Fluid Anaerobic Culture - Preliminary No growth to date. 03/31/21 21:53 Blood - Venous Blood Culture - Final Staphylococcus aureus Strep dysgalactiae ssp equisim 03/31/21 21:53 Blood - Venous Blood Culture - Final Staphylococcus aureus Strep dysgalactiae ssp equisim 04/01/21 Unknown Urine clean catch - Urine fox top Urine Culture - Final Procedures Date of Service Date of Service: 04/12/21 Assessment & Plan Assessment and plan (1) MELITON (acute kidney injury): Status: Acute Assessment and Plan: MELITON due to tubular injury Differential post infectious GN ( C3/C4 low) Renal function stable Low Sodium due to excess ADH from pulmonary pathology Continue? current supportive care Time Spent With Patient Time: Total time spent is greater than 50% in coordination of care (as documented) at patient's floor/unit and/or counseling patient: Progress Note: Quality Stroke Does the patient have a stroke diagnosis?: No
--- NOTE | 2021-04-12 12:05 | P.PNIM_ITS ---
Subjective Subjective Date of Service: 04/12/21 Interval History: Coughing up raad sputum. Pain controlled. No fever. Review of Systems Review of Systems: Yes all other systems are reviewed and are negative Physical Exam Vital Signs: Vital Signs: Last Vital Signs Temp 98.3 F 04/12/21 07:55 Pulse 90 04/12/21 07:55 Resp 19 04/12/21 07:55 BP 120/44 L 04/12/21 07:55 Pulse Ox 97 04/12/21 07:55 BMI result Body Mass Index 24.2 Gen: in NAD on 4L O2 via NC HEENT: sclera anicteric, moist mucus membranes Neck: supple Lungs: diminished L>R base, scattered inspiratory wet crackles, L chest tube to wall suction with serosanguinous drainage Heart: regular rate and rhythm Abd: soft, non-tender, non-distended Ext: no edema Skin: warm/well-perfused, R forearm ulcer with raised margins without drainage Neuro: alert and oriented x3, no focal findings Psych: restricted affect Objective Data Active Medications Acetaminophen (Acetaminophen 325 Mg Tablet) 650 mg PO Q6H PRN PRN Reason: Fever Last Admin: 04/08/21 16:27 Dose: 650 mg Documented by: NOEL Benzonatate (Benzonatate 100 Mg Capsule) 100 mg PO TID PRN PRN Reason: Cough Last Admin: 04/10/21 20:23 Dose: 100 mg Documented by: ALON Guaifenesin/Dextromethorphan (Guaifenesin Dm 200/20/10 Ml 10 Ml Syrup) 10 ml PO QID [facility] Last Admin: 04/12/21 08:36 Dose: 10 ml Documented by: JULES Hydroxyzine HCl (Hydroxyzine Hcl 25 Mg Tablet) 25 mg PO Q6H PRN PRN Reason: Anxiety Last Admin: 04/03/21 22:59 Dose: 25 mg Documented by: CARMEN Cefazolin Sodium/Dextrose (Ancef) 2 gm in 50 mls @ 100 mls/hr IV Q8H [facility] Last Infusion: 04/12/21 06:12 Dose: 0 mls/hr Documented by: ANDDEV Melatonin (Melatonin 3 Mg Tablet) 6 mg PO BEDTIME PRN PRN Reason: Insomnia Last Admin: 04/04/21 01:30 Dose: 6 mg Documented by: CARMEN Methadone HCl (Methadone Hcl 20 Mg/2 Ml Oral.Conc) 55 mg PO DAILY [facility] Last Admin: 04/12/21 08:36 Dose: 55 mg Documented by: JULES Morphine Sulfate (Morphine Sulfate 4 Mg/Ml Cartridge) 4 mg IVPUSH Q4H PRN; Protocol PRN Reason: Pain, Severe (Pain Scale 7-10) Last Admin: 04/12/21 08:59 Dose: 4 mg Documented by: JULES Nicotine Polacrilex (Nicotine Polacrilex 2 Mg Gum) 2 mg BUCCAL Q2H PRN PRN Reason: Nicotine Cravings Last Admin: 04/04/21 05:47 Dose: 2 mg Documented by: CARMEN Pharmacy Consult (Consult Rx Perform Med Rec) 1 each MISCELLANE ONCE PRN PRN Reason: Consult order Senna (Sennosides 8.6 Mg Tablet) 17.2 mg PO BEDTIME PRN PRN Reason: Constipation Sodium Chloride (0.9 % Sodium Chloride Flush 3 Ml Syringe) 3 ml IVFLUSH QSHIFT [facility] Last Admin: 04/12/21 08:43 Dose: 3 ml Documented by: JULES Labs CBC & Chem 7: 04/12/21 05:36 04/12/21 05:36 Labs: Laboratory Results - last 24 hr 04/12/21 04/12/21 05:36 05:36 MCV 86.9 MCH 28.2 MCHC 32.4 RDW 18.0 H Plt Count 194 MPV 8.7 L Absolute Nucleated RBC 0.000 Nucleated RBC % (auto) 0.0 Anion Gap 13 Estim Creat Clear Calc 53.1 Estimated GFR 54 Random Glucose 99 Calcium 8.3 L Microbiology Microbiology Results: Microbiology 04/07/21 08:23 Blood Culture - Final Blood - Venous No growth after 5 days. 04/07/21 08:12 Blood Culture - Final Blood - Venous No growth after 5 days. 04/08/21 16:00 Gram Stain - Final Pleural Fluid Routine Culture - Final No growth after 2 days Anaerobic Culture - Preliminary No growth to date. Assessment and Plan (1) Pleural effusion: Status: Acute (2) Septic embolism: Status: Acute (3) Infective endocarditis: Status: Acute (4) Cocaine use disorder, severe, dependence: Status: Acute (5) Opioid use disorder, severe, dependence: Status: Acute (6) Acute respiratory failure with hypoxia: Status: Acute (7) Transaminitis: Status: Acute (8) Bacteremia: Status: Acute (9) Acute hyponatremia: Status: Acute (10) Leukocytosis: Status: Acute (11) Pneumonia: Status: Acute (12) Thrombocytopenia: Status: Acute (13) Anemia: Status: Acute Assessment and Plan: hospital d#13 25yo F with history of IV heroin + cocaine abuse, recent RUE cellulitis with open wound p/w SOB and admitted for severe sepsis found to be bacteremic with TV endocarditis complicated by cavitary septic emboli + bilateral loculated pleural effusions # severe sepsis # MSSA + Streptococcus dysgalactiae [equis group] bacteremia/infective endocar ditis [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 x 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] # multifocal pneumonia with cavitary septic emboli - WBC and lactate normalized, got 7d of vancomycin- changed to cefazolin 2g IV q8h 04/08/21, on day #, PICC ordered since BCx from 04/07 cleared, to be done 04/13/21 # loculated B pleural effusions # small L pneumothorax - Thoracic following, had 3d of chemical decortication with intrapleural tPA 04/10-04/12 with decrease in pleural effusion; NPO for R-sided chest tube tomorrow - pleural fluid exudative, culture-negative but had already been on ABX for several days # anemia of chronic inflammation - tranfused 3u pRBCs 04/03/21 + 2u pRBCs 04/07/21; monitor Hb and transfuse if Hb <7 # coagulopathy - vit K 10 mg PO given; monitor INR # acute hypoxic respiratory failure - wean O2 as tolerated # thrombocytopenia - likely due to sepsis + HCV, resolved # MAT-associated wound - senior ux designer consulted # back pain - no focal neurologic signs, pt declines MRI of spine, continue to monitor -> improved - oxycodone + morphine prn # MELITON - SCr normalized, avoid nephrotoxins + continue to monitor # hypoNa - mild, 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 # transaminasemia - resolved, likely due to sepsis # HCV - Ab positive, viral load pending; HBV immune; HIV negative # opioid use disorder - continue methadone 55 mg/d; Addiction Medicine following # cocaine abuse - prn hydroxyzine, CARE Team # tobacco abuse - NRT # protein-calorie malnutrition - Ensure supplementation # VTE ppx - SCDs # dispo - will need STR for prolonged IV ABX Quality Stroke Does the patient have a stroke diagnosis?: No VTE Prior VTE?: No VTE Risk Level:: Medical - moderate - high VTE Device Contraindication: Treatment Not Indicated VTE Drug Contraindication: N/A - Med Ordered
--- NOTE | 2021-04-12 15:32 | P.PNTS_ITS ---
Subjective Subjective Date of Service: 04/21/21 Interval history: Patient seen and examined this afternoon. Orders placed for chest tube to be placed to waterseal this am. Chest tube found to still be on suction at time of exam. Patient denies respiratory distress. Reports shortness of breath with exertion and states she has not ambulated at this time. States it is too hard for her to ambulate without getting short of breath. Denies any pain at this time. Otherwise, no changes. Physical Exam Vital Signs: Vital Signs: Last Vital Signs Temp 98.6 F 04/12/21 12:00 Pulse 89 04/12/21 12:00 Resp 21 H 04/12/21 12:00 BP 135/57 L 04/12/21 12:00 Pulse Ox 97 04/12/21 12:00 BMI result Body Mass Index 24.2 Const: General: cooperative, comfortable, no acute distress and ill appearing Nutritional Appearance: well nourished Orientation/consciousness: oriented to person, oriented to place, oriented to time and patient oriented x3 Limitations: no limitations HENMT: Head: Yes normal to inspection, Yes normocephalic and Yes atraumatic Mouth: Normal oral and palatal mucosa present Eyes: Visual Richardson: normal visual richardson by confrontation Alignment and Position: alignment normal Periorbital: periorbital findings normal Conjunctivae: conjunctivae normal Sclerae: sclerae normal Pupils: Equal, round and reactive pupils present and Pupil accommodation reflex normal EOM: EOMs intact bilaterally Neck: Neck: Yes normal visual inspection, Yes full ROM, Yes no lymphadenopathy, Yes trachea midline, Yes supple, No lymphadenopathy, No tender and No tracheal deviation Lymphatic: no lymphadenopathy noted Chest: Chest palpation & inspection: normal inspection of the chest and no crepitus Resp: Other: Left pigtail chest tube in place, found to be at -20cm continuous LWS at time of my exam. Chest tube placed to waterseal. 123cc of serousanguinous drainage in atrium. No visible air leak. Chest tube dressing is C/D/I. No chest crepitus. Effort & Inspection: normal respiratory effort, able to speak in complete sentences, normal respiratory pattern, no audible wheezes, no cough, no pursed lip breathing, no respiratory distress, no stridor, not tachypneic, no tracheal deviation and other (Patient speaking in full sentences on room air. Chest tube to *waterseal/landa) Auscultation: crackles (bilateral bases, dim to right lung base) Cardio: Jugular venous distension: no JVD Palpation: normal PMI Rate: regular rate Rhythm: regular rhythm Heart sounds: S1 normal heart sound present, S2 normal heart sound present, no click, no gallops, no murmurs and no rubs GI: Inspection: Yes normal to inspection Auscultation: normal bowel sounds : General: Yes no CVA tenderness Back/Spine/Pelvis: Back: no CVA tenderness Thoracic/Lumbar Spine: thoracic and lumbar spine normal to inspection Skin: General skin exam: no rashes or lesions noted and dry skin Lesions: no lesions Rashes: no rashes Neuro: General: oriented to person, oriented to place, oriented to time, patient oriented x3 and gait normal Cranial nerves: Yes Equal, round and reactive pupils present Extrem: General: Yes normal to inspection, Yes full ROM, Yes capillary refill normal, Yes no clubbing, cyanosis or edema, Yes no pedal edema and Yes normal gait Psych: Appearance: grossly normal and well kempt Mental Status: mental status grossly normal Speech and movement: Normal speech and movement present and Clear speech present Affect: normal affect Attitude: cooperative Thought process: Normal thought process present Thought content: Normal thought content present Procedures Date of Service Date of Service: 04/12/21 Progress Note: A&P Assessment and plan (1) Pleural effusion: Status: Acute Assessment and Plan: 25 year old female with IVDA (heroin, cocaine) admitted to [facility] with severe sepsis with anemia and coagulopathy treated with PRBc and vitamin K, bacteremia, tricuspid valve endocarditis, septic pulmonary emboli, bilateral pleural effusion, thrombocytopenia, and hyponatremia.? +HCV ab. Loculated left pleural effusion * s/p IR pigtail catheter placement on 04/08/21.? Unfortunately, this catheter is extremely thin and not ideal for drainage of a complex effusion.? Will need to ensure tubing stays patent with at least daily flushes. * Now s/p tPA and DNase x 3. Tolerated well. Drained 220cc of serousanguinous drainage overnight. 123cc noted in new atrium this afternoon * Chest CT scan showed significant improvement of the prior left pleural effusion. Tiny left-sided hydropneumothorax remains. Pigtail catheter in place. Similar appearance of the right-sided pleural effusion with loculation along the peripheral mid hemithorax. Multifocal nodular opacities throughout the lungs with cavitation, showing some increase in size from prior. This is most concerning for septic emboli. Increased bilateral lower lung consolidation which could be in part atelectasis.? * H&H have remained stable but slowly downtrending over the past few days. Platelets remain stable * Continue on IV abx * Place chest tube to waterseal today with anticipation on removing tomorrow Right pleural effusion * Continues to have a moderate right-sided pleural effusion. * Will plan for right-sided pigtail catheter placement be performed by Interventional Radiology on Tuesday04/13/21 and pleural fluid studies for Tuesday as patient refused yesterday and no IR providers available over the weekend. * Patient will need to be NPO tonight at midnight Case discussed with Dr. Newton. Thank you for this consult. Please do not hesitate to contact with any questions or concerns. Fall Risk Details Current Medications: Current Medications Acetaminophen (Acetaminophen 325 Mg Tablet) 650 mg PO Q6H PRN PRN Reason: Fever Last Admin: 04/08/21 16:27 Dose: 650 mg Documented by: Benzonatate (Benzonatate 100 Mg Capsule) 100 mg PO TID PRN PRN Reason: Cough Last Admin: 04/10/21 20:23 Dose: 100 mg Documented by: Guaifenesin/Dextromethorphan (Guaifenesin Dm 200/20/10 Ml 10 Ml Syrup) 10 ml PO QID [facility] Last Admin: 04/12/21 12:42 Dose: 10 ml Documented by: Hydroxyzine HCl (Hydroxyzine Hcl 25 Mg Tablet) 25 mg PO Q6H PRN PRN Reason: Anxiety Last Admin: 04/03/21 22:59 Dose: 25 mg Documented by: Cefazolin Sodium/Dextrose (Ancef) 2 gm in 50 mls @ 100 mls/hr IV Q8H [facility] Last Infusion: 04/12/21 13:14 Dose: Infused Documented by: Melatonin (Melatonin 3 Mg Tablet) 6 mg PO BEDTIME PRN PRN Reason: Insomnia Last Admin: 04/04/21 01:30 Dose: 6 mg Documented by: Methadone HCl (Methadone Hcl 20 Mg/2 Ml Oral.Conc) 55 mg PO DAILY [facility] Last Admin: 04/12/21 08:36 Dose: 55 mg Documented by: Morphine Sulfate (Morphine Sulfate 4 Mg/Ml Cartridge) 4 mg IVPUSH Q4H PRN; Protocol PRN Reason: Pain, Severe (Pain Scale 7-10) Last Admin: 04/12/21 13:11 Dose: 4 mg Documented by: Nicotine Polacrilex (Nicotine Polacrilex 2 Mg Gum) 2 mg BUCCAL Q2H PRN PRN Reason: Nicotine Cravings Last Admin: 04/04/21 05:47 Dose: 2 mg Documented by: Pharmacy Consult (Consult Rx Perform Med Rec) 1 each MISCELLANE ONCE PRN PRN Reason: Consult order Senna (Sennosides 8.6 Mg Tablet) 17.2 mg PO BEDTIME PRN PRN Reason: Constipation Sodium Chloride (0.9 % Sodium Chloride Flush 3 Ml Syringe) 3 ml IVFLUSH QSHIFT [facility] Last Admin: 04/12/21 08:43 Dose: 3 ml Documented by: Time Spent With Patient Time: Total time spent is greater than 50% in coordination of care (as documented) at patient's floor/unit and/or counseling patient: Time with patient: less than 15 minutes Quality Stroke Does the patient have a stroke diagnosis?: No VTE Prior VTE?: No VTE Risk Level:: Medical - moderate - high VTE Device Contraindication: Treatment Not Indicated VTE Drug Contraindication: N/A - Med Ordered
[2021-04-13] VITALS (9 sets, daily range): BP systolic 103–152; BP diastolic 51–66; PULSE 81–101; RESP 16–20; TEMP 36.6–37.6; O2SAT 96–99
[2021-04-13] MEDS: Morphine Sulfate 4 MG/ML CARTRIDGE IVPUSH ×5 (02:52→21:41)
[2021-04-13] MEDS: ceFAZolin Sodium/Dextrose,Iso 2 GM/50 ML PIGGYBACK IV ×3 (03:00→20:01)
[2021-04-13 04:56] LABS: Mean Corpuscular HGB Conc 32.4 g/dl (31.0-35.0); Mean Corpuscular Hemoglobin 28.2 pg (27.0-33.0); Mean Corpuscular Volume 87.2 fL (80.0-98.0); Mean Platelet Volume 8.6 fL (9.4-12.3); Platelet Count 207 X10*3/uL (160-400); Red Blood Count 2.34 X10*6/uL (4.20-5.50)
[2021-04-13 05:03] LABS: INTERNATIONAL NORM RATIO 1.6 (0.9-1.1)
[2021-04-13 05:15] LABS: Hematocrit 20.4 % (37.0-47.0); Hemoglobin 6.6 g/dl (12.0-16.0)
[2021-04-13] MEDS: guaiFENesin DM 200/20/10 ML 10 ML SYRUP PO ×4 (08:23→20:01)
[2021-04-13] MEDS: 0.9 % Sodium Chloride Flush 3 ML SYRINGE IVFLUSH ×3 (08:24→20:01)
[2021-04-13] MEDS: methADONE HCl 20 MG/2 ML ORAL.CONC 55 MG PO (08:24)
--- NOTE | 2021-04-13 11:17 | PM.PNNEP ---
Subjective Subjective Date of Service: 04/13/21 Interval history: Seen and examined, events noted Physical Exam Vital Signs: Vital Signs: Last Vital Signs Temp 99.6 F 04/13/21 09:26 Pulse 87 04/13/21 09:26 Resp 18 04/13/21 09:26 BP 113/51 L 04/13/21 09:26 Pulse Ox 99 04/13/21 08:00 BMI result Body Mass Index 24.2 Const: Other: Disheveled General: comfortable, no acute distress and alert Orientation/consciousness: patient oriented x3 Limitations: no limitations HENMT: Other: tacky mucous membranes Head: Yes normal to inspection and Yes normocephalic Ears: hearing grossly normal bilaterally General nose exam: Normal external nose present Face and sinus: Yes normal facial exam Mouth: Normal oral and palatal mucosa present Throat: Yes posterior oropharynx normal Eyes: General: appearance normal, both eyes and all related structures Pupils: Equal, round and reactive pupils present EOM: EOMs intact bilaterally Neck: Neck: Yes normal visual inspection and Yes supple Chest: Chest palpation & inspection: normal inspection of the chest Resp: Other: L Chest tube Auscultation: diminished lung sounds Cardio: Jugular venous distension: no JVD Rate: regular rate and tachycardic Rhythm: regular rhythm Peripheral pulses: Peripheral pulses 2+ throughout GI: Inspection: Yes normal to inspection Palpation (GI): Soft to palpation and nontender Auscultation: normal bowel sounds Back/Spine/Pelvis: Thoracic/Lumbar Spine: thoracic and lumbar spine normal to inspection Skin: General skin exam: no rashes or lesions noted Neuro: Other: diffusely weak General: patient oriented x3, moves all extremities, normal sensation to monofilament and Unable to assess gait Cranial nerves: Yes Equal, round and reactive pupils present Cognition (Neuro): normal cognition Speech: No Abnormal speech present Gait exam (Neuro): Unable to assess gait Motor exam (neuro): 5/5 motor strength present throughout Extrem: Other: General: Yes normal to inspection, Yes no pedal edema and Yes no calf tenderness Objective Data Labs CBC & Chem 7: 04/13/21 04:38 04/12/21 05:36 Labs: Laboratory Results - last 24 hr 04/13/21 04/13/21 04/13/21 04:38 04:38 04:38 WBC 11.0 H RBC 2.34 L Hgb 6.6 L* Hct 20.4 L* MCV 87.2 MCH 28.2 MCHC 32.4 RDW 18.0 H Plt Count 207 MPV 8.6 L Absolute Nucleated RBC 0.000 Nucleated RBC % (auto) 0.0 PT 18.0 H INR 1.6 H Blood Type O Positive Antibody Screen NEGATIVE Crossmatch See Detail Microbiology Microbiology Results: Microbiology 04/08/21 16:00 Pleural Fluid Gram Stain - Final 04/08/21 16:00 Pleural Fluid Routine Culture - Final No growth after 2 days 04/08/21 16:00 Pleural Fluid Anaerobic Culture - Preliminary No growth to date. 04/07/21 08:23 Blood - Venous Blood Culture - Final No growth after 5 days. 04/07/21 08:12 Blood - Venous Blood Culture - Final No growth after 5 days. 03/31/21 21:53 Blood - Venous Blood Culture - Final Staphylococcus aureus Strep dysgalactiae ssp equisim 03/31/21 21:53 Blood - Venous Blood Culture - Final Staphylococcus aureus Strep dysgalactiae ssp equisim 04/01/21 Unknown Urine clean catch - Urine fox top Urine Culture - Final Procedures Date of Service Date of Service: 04/13/21 Assessment & Plan Assessment and plan (1) MELITON (acute kidney injury): Start date: 04/13/21 Start time: 11:17 Status: Acute Assessment and Plan: 1. MELITON: peak SCr 2.5 qand now 1.24 c/w recoery from [facility]; prior w/u raised concern for GN gievn decr C3/C4 but less concerning now with decr Scr; hold off on kidney Bx 2. HypoNa: mild ( last SNa 129) multifact; que SIADH related to ongoing pain and lug invovlement REC: avoid Ntoxins ( no NSAIDS please); track SNA and avoid exess PO fluids ( restrict to 1500) Will follow with team Time Spent With Patient Time: Total time spent is greater than 50% in coordination of care (as documented) at patient's floor/unit and/or counseling patient: Progress Note: Quality Stroke Does the patient have a stroke diagnosis?: No
--- NOTE | 2021-04-13 12:54 | P.PNIM_ITS ---
Progress Note: A&P (1) Pleural effusion: Status: Acute Assessment and Plan: 25 year old female with IVDA (heroin, cocaine) admitted to [facility] with severe sepsis with anemia and coagulopathy treated with PRBc and vitamin K, bacteremia, tricuspid valve endocarditis, septic pulmonary emboli, bilateral pleural effusion, thrombocytopenia, and hyponatremia. +HCV ab. Loculated left pleural effusion * s/p IR pigtail catheter placement on 04/08/21. Unfortunately, this catheter is extremely thin and not ideal for drainage of a complex effusion. Will need to ensure tubing stays patent with at least daily flushes. * Left sided chest tube found to be on -20 low wall suction and was switched to waterseal this afternoon with no detectable air leak. * Morning chest x-ray reveals improvement of left-sided pleural effusion s/p tPA administration x 3 days. * Morning chest x-ray also reveals moderate right-sided pleural effusion will place order for right-sided pigtail catheter be performed by Interventional Radiology along with pleural fluid studies which is scheduled for this afternoon. * Call Thoracic Surgery for any questions or concerns regarding the chest tube. * Call Thoracic Surgery for any frankly bloody output from the chest tube of >100cc in 1 hour, >400cc in 8 hours, and/or signs of symptomatic anemia. * Hgb 6.6 this morning, receiving 1 unit of prbc's * Patient came in with profound thrombocytopenia and coagulopathy. The coagulopathy was reversed and the platelets have improved significantly, but do continue to be on the lower side. Will need to check CBC daily to ensure platelets do not continue to drop which then may be a contraindication to furt her chemical decortication. * Monitor for any s/sx bleeding from the chest tube following every dose of alteplase/DNAse. Right pleural effusion * Continues to have a moderate right-sided pleural effusion. * Will plan for right-sided pigtail catheter placement be performed by Interventional Radiology. * Patient made NPO For planned procedure. Case discussed with Dr. Newton. (2) Infective endocarditis: Status: Acute (3) Septic embolism: Status: Acute (4) Cocaine use disorder, severe, dependence: Status: Acute (5) Opioid use disorder, severe, dependence: Status: Acute (6) Bacteremia: Status: Acute (7) Acute hyponatremia: Status: Acute (8) MELITON (acute kidney injury): Status: Acute (9) Pneumonia: Status: Acute (10) Thrombocytopenia: Status: Acute Subjective Subjective Date of Service: 04/13/21 Interval History: Patient was seen and examined this morning. Patient states she has remained n.p.o. overnight for pending right-sided pigtail placement which is to be performed by interventional radiology. Her left-sided chest tube remained on -20 low wall suction overnight with approximately 60 cc of serosanguineous fluid output. She denies any shortness of breath at rest however does admit to some dyspnea on exertion from chair to commode but states she has noticed an improvement since having her left-sided chest tube placed.. She states she continues to cough up rust colored sputum denies any concerning symptoms such as hemoptysis, dizziness or chest pain. Constitutional Constitutional: Denies chills, Denies fever(s), Denies headache(s), Denies malaise and Reports weakness Eyes Eyes: Denies diplopia ENT Ears, Nose, Mouth, and Throat: Reports system reviewed and no additional complaints, except as documented, Denies dysphagia, Denies vertigo, Denies dizziness, Denies headache(s), Denies nasal congestion, Denies nasal discharge, Denies neck pain, Denies sore throat and Denies throat swelling Cardiovascular Cardiovascular: Reports no additional cardiovascular complaints, Denies chest pain, Denies syncope, Denies leg edema, Denies lightheadedness and Reports dyspnea Respiratory Respiratory: Reports as per HPI, Reports no additional respiratory complaints, Reports cough and Reports dyspnea Gastrointestinal Gastrointestinal: Reports no additional gastrointestinal complaints, Denies abdominal pain, Denies dysphagia, Denies diarrhea, Denies nausea and Denies vomiting Musculoskeletal Musculoskeletal: Reports no additional musculoskeletal complaints, Denies back pain, Denies arthralgias, Denies joint swelling, Denies neck pain, Denies numbness and Denies tingling Integumentary/Breasts Skin/Breast: Reports no additional skin complaints and Denies rash Neurologic Neurologic: Reports system reviewed and no additional complaints, except as documented, Denies Abnormal speech present, Denies vertigo, Denies dizziness, Denies syncope, Denies headache(s), Denies numbness, Denies tingling and Reports weakness Allergic/Immunologic Allergic/Immunologic: Denies throat swelling Physical Exam Vital Signs: Vital Signs: Last Vital Signs Temp 99 F 04/13/21 12:00 Pulse 81 12/20/21 12:00 Resp 16 04/13/21 12:00 BP 122/54 L 04/13/21 12:00 Pulse Ox 98 04/13/21 12:00 BMI result Body Mass Index 24.2 Const: General: cooperative, comfortable, no acute distress, alert and awake Nutritional Appearance: well nourished and overweight Orientation/consciousness: oriented to person, oriented to place, oriented to ti me and patient oriented x3 HENMT: Head: Yes normal to inspection, Yes normocephalic and Yes atraumatic Face and sinus: Yes normal facial exam Eyes: General: appearance normal, both eyes and all related structures Periorbital: periorbital findings normal Conjunctivae: conjunctivae normal Sclerae: sclerae normal Pupils: Equal, round and reactive pupils present and Pupil accommodation reflex normal EOM: EOMs intact bilaterally Neck: Neck: Yes normal visual inspection, Yes full ROM, Yes no lymphadenopathy, Yes trachea midline, Yes supple, No lymphadenopathy, No tender and Yes no JVD Lymphatic: no lymphadenopathy noted Chest: Other: Left-sided pigtail catheter remains in place with dressing CDI, remained on -20 LWS overnight with approximately 60 cc of serosanguineous fluid output overnight, no detectable air leak on physical exam. There is a small amount of crepitus along left lateral chest wall. Resp: Effort & Inspection: normal respiratory effort, able to speak in complete sentences, normal respiratory pattern, no audible wheezes, no cough, no stridor, not tachypneic and other (Patient speaking in full sentences on room air. Chest tube to *waterseal/landa) Auscultation: crackles (bilateral bases, dim to right lung base) Cardio: Jugular venous distension: no JVD Palpation: normal PMI Rate: regular rate Rhythm: regular rhythm Heart sounds: S1 normal heart sound present, S2 normal heart sound present, no click, no gallops, no murmurs and no rubs GI: Inspection: Yes normal to inspection Palpation (GI): Soft to palpation and nontender Auscultation: normal bowel sounds Back/Spine/Pelvis: Thoracic/Lumbar Spine: thoracic and lumbar spine normal to inspection Skin: General skin exam: no rashes or lesions noted and dry skin Lesions: no lesions Rashes: no rashes Neuro: General: oriented to person, oriented to place, oriented to time, patient oriented x3, gait normal, moves all extremities and Unable to assess gait Cranial nerves: Yes Equal, round and reactive pupils present Speech: No Abnormal speech present Gait exam (Neuro): Unable to assess gait Extrem: General: Yes normal to inspection, Yes capillary refill normal, Yes no clubbing, cyanosis or edema, Yes no pedal edema and Yes no calf tenderness Psych: Appearance: grossly normal and well kempt Mental Status: mental status grossly normal Speech and movement: Normal speech and movement present and Clear speech present Affect: normal affect Attitude: cooperative Thought process: Normal thought process present Thought content: Normal thought content present Objective Data Current Medications Acetaminophen (Acetaminophen 325 Mg Tablet) 650 mg PO Q6H PRN PRN Reason: Fever Last Admin: 04/08/21 16:27 Dose: 650 mg Documented by: Benzonatate (Benzonatate 100 Mg Capsule) 100 mg PO TID PRN PRN Reason: Cough Last Admin: 04/10/21 20:23 Dose: 100 mg Documented by: Guaifenesin/Dextromethorphan (Guaifenesin Dm 200/20/10 Ml 10 Ml Syrup) 10 ml PO QID [facility] Last Admin: 04/13/21 12:29 Dose: 10 ml Documented by: Hydroxyzine HCl (Hydroxyzine Hcl 25 Mg Tablet) 25 mg PO Q6H PRN PRN Reason: Anxiety Last Admin: 04/03/21 22:59 Dose: 25 mg Documented by: Cefazolin Sodium/Dextrose (Ancef) 2 gm in 50 mls @ 100 mls/hr IV Q8H [facility] Last Infusion: 04/13/21 12:33 Dose: Infused Documented by: Melatonin (Melatonin 3 Mg Tablet) 6 mg PO BEDTIME PRN PRN Reason: Insomnia Last Admin: 04/04/21 01:30 Dose: 6 mg Documented by: Methadone HCl (Methadone Hcl 20 Mg/2 Ml Oral.Conc) 55 mg PO DAILY [facility] Last Admin: 04/13/21 08:24 Dose: 55 mg Documented by: Morphine Sulfate (Morphine Sulfate 4 Mg/Ml Cartridge) 4 mg IVPUSH Q4H PRN; Protocol PRN Reason: Pain, Severe (Pain Scale 7-10) Last Admin: 04/13/21 12:30 Dose: 4 mg Documented by: Nicotine Polacrilex (Nicotine Polacrilex 2 Mg Gum) 2 mg BUCCAL Q2H PRN PRN Reason: Nicotine Cravings Last Admin: 04/04/21 05:47 Dose: 2 mg Documented by: Pharmacy Consult (Consult Rx Perform Med Rec) 1 each MISCELLANE ONCE PRN PRN Reason: Consult order Senna (Sennosides 8.6 Mg Tablet) 17.2 mg PO BEDTIME PRN PRN Reason: Constipation Sodium Chloride (0.9 % Sodium Chloride Flush 3 Ml Syringe) 3 ml IVFLUSH QSHIFT [facility] Last Admin: 04/13/21 08:24 Dose: 3 ml Documented by: Labs CBC & Chem 7: 04/13/21 04:38 04/12/21 05:36 Labs: Laboratory Results - last 24 hr 04/13/21 04/13/21 04/13/21 04:38 04:38 04:38 MCV 87.2 MCH 28.2 MCHC 32.4 RDW 18.0 H Plt Count 207 MPV 8.6 L Absolute Nucleated RBC 0.000 Nucleated RBC % (auto) 0.0 PT 18.0 H INR 1.6 H Blood Type O Positive Antibody Screen NEGATIVE Crossmatch See Detail Microbiology Microbiology Results: Microbiology 04/08/21 16:00 Pleural Fluid Gram Stain - Final 04/08/21 16:00 Pleural Fluid Routine Culture - Final No growth after 2 days 04/08/21 16:00 Pleural Fluid Anaerobic Culture - Final NO GROWTH AFTER 5 DAYS 04/07/21 08:23 Blood - Venous Blood Culture - Final No growth after 5 days. 04/07/21 08:12 Blood - Venous Blood Culture - Final No growth after 5 days. 03/31/21 21:53 Blood - Venous Blood Culture - Final Staphylococcus aureus Strep dysgalactiae ssp equisim 03/31/21 21:53 Blood - Venous Blood Culture - Final Staphylococcus aureus Strep dysgalactiae ssp equisim 04/01/21 Unknown Urine clean catch - Urine fox top Urine Culture - Final Quality Stroke Does the patient have a stroke diagnosis?: No VTE Prior VTE?: No VTE Risk Level:: Medical - moderate - high VTE Device Contraindication: Treatment Not Indicated VTE Drug Contraindication: N/A - Med Ordered
--- NOTE | 2021-04-13 13:46 | MHC.CLN ---
F/U NUTRITION CONSULT AND F/U. CONSULT FOR PROBABLE POOR INTAKE. CURRENTLY NPO. HAS DX MALNUTRITION. DIET PRIOR TO NPO WAS REGULAR WITH ENSURE TID. APPEARS TO EAT WELL WHEN NOT NPO. RECOMMEND RESUME DIET AND SUPPLEMENT IF/WHEN ABLE.
--- NOTE | 2021-04-13 14:37 | P.PNIM_ITS ---
Subjective Subjective Date of Service: 04/13/21 Interval History: Complaining of persistent productive cough, no overnight fevers no acute change in clinical status oxygenation stable on 2 L Review of Systems Review of Systems: Yes all other systems are reviewed and are negative Physical Exam Vital Signs: Vital Signs: Last Vital Signs Temp 99 F 04/13/21 12:00 Pulse 81 04/13/21 12:00 Resp 16 04/13/21 12:00 BP 122/54 L 04/13/21 12:00 Pulse Ox 98 04/13/21 12:00 BMI result Body Mass Index 24.2 Gen: Awake alert, sick-appearing, n o acute distress N julianna: supple, no JV D Lungs: diminishe d bilateral bases, b/l 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, L chest tub e to suction with serosanguinous carter inage Heart: regul ar rate and rhythm Abd: soft, non-te nder, non-distende d Ext: no edema Sk in: warm/well-perf used, R forearm ul cer with raised ma rgins without drai nage Neuro: alert and oriented x3, n o focal findings M usculoskeletal no deformity Objective Data Active Medications Acetaminophen (Acetaminophen 325 Mg Tablet) 650 mg PO Q6H PRN PRN Reason: Fever Last Admin: 04/08/21 16:27 Dose: 650 mg Documented by: NOEL Benzonatate (Benzonatate 100 Mg Capsule) 100 mg PO TID PRN PRN Reason: Cough Last Admin: 04/10/21 20:23 Dose: 100 mg Documented by: ALON Guaifenesin/Dextromethorphan (Guaifenesin Dm 200/20/10 Ml 10 Ml Syrup) 10 ml PO QID [facility] Last Admin: 04/13/21 12:29 Dose: 10 ml Documented by: JULES Hydroxyzine HCl (Hydroxyzine Hcl 25 Mg Tablet) 25 mg PO Q6H PRN PRN Reason: Anxiety Last Admin: 04/03/21 22:59 Dose: 25 mg Documented by: CARMEN Cefazolin Sodium/Dextrose (Ancef) 2 gm in 50 mls @ 100 mls/hr IV Q8H [facility] Last Infusion: 04/13/21 12:33 Dose: 100 mls/hr Documented by: JULES Melatonin (Melatonin 3 Mg Tablet) 6 mg PO BEDTIME PRN PRN Reason: Insomnia Last Admin: 04/04/21 01:30 Dose: 6 mg Documented by: CARMEN Methadone HCl (Methadone Hcl 20 Mg/2 Ml Oral.Conc) 55 mg PO DAILY [facility] Last Admin: 04/13/21 08:24 Dose: 55 mg Documented by: JULES Morphine Sulfate (Morphine Sulfate 4 Mg/Ml Cartridge) 4 mg IVPUSH Q4H PRN; Protocol PRN Reason: Pain, Severe (Pain Scale 7-10) Last Admin: 04/13/21 12:30 Dose: 4 mg Documented by: JULES Nicotine Polacrilex (Nicotine Polacrilex 2 Mg Gum) 2 mg BUCCAL Q2H PRN PRN Reason: Nicotine Cravings Last Admin: 04/04/21 05:47 Dose: 2 mg Documented by: CARMEN Pharmacy Consult (Consult Rx Perform Med Rec) 1 each MISCELLANE ONCE PRN PRN Reason: Consult order Senna (Sennosides 8.6 Mg Tablet) 17.2 mg PO BEDTIME PRN PRN Reason: Constipation Sodium Chloride (0.9 % Sodium Chloride Flush 3 Ml Syringe) 3 ml IVFLUSH QSHIFT [facility] Last Admin: 04/13/21 08:24 Dose: 3 ml Documented by: JULES Labs CBC & Chem 7: 04/13/21 04:38 04/12/21 05:36 Labs: Laboratory Results - last 24 hr 04/13/21 04/13/21 04/13/21 04:38 04:38 04:38 MCV 87.2 MCH 28.2 MCHC 32.4 RDW 18.0 H Plt Count 207 MPV 8.6 L Absolute Nucleated RBC 0.000 Nucleated RBC % (auto) 0.0 PT 18.0 H INR 1.6 H Blood Type O Positive Antibody Screen NEGATIVE Crossmatch See Detail Microbiology Microbiology Results: Microbiology 04/08/21 16:00 Gram Stain - Final Pleural Fluid Routine Culture - Final No growth after 2 days Anaerobic Culture - Final NO GROWTH AFTER 5 DAYS 04/07/21 08:23 Blood Culture - Final Blood - Venous No growth after 5 days. 04/07/21 08:12 Blood Culture - Final Blood - Venous No growth after 5 days. Assessment and Plan (1) Pleural effusion: Status: Acute (2) Septic embolism: Status: Acute (3) Infective endocarditis: Status: Acute (4) Cocaine use disorder, severe, dependence: Status: Acute (5) Opioid use disorder, severe, dependence: Status: Acute (6) Acute respiratory failure with hypoxia: Status: Acute Assessment and Plan: hospital d#13 25yo F with history of IV heroin + cocaine abuse, recent RUE cellulitis with open wound,p/w SOB and admitted for severe sepsis found to be bacteremic with TV endocarditis complicated by cavitary septic emboli + bilateral loculated pleural effusions # severe sepsis/ MSSA + Streptococcus dysgalactiae [equis group] bacteremia/infective endocarditis [2.77 x 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] multifocal pneumonia with cavitary septic emboli - WBC and lactate normalized, got 7d of vancomycin- changed to cefazolin 2g IV q8h 04/08/21, on day #, repeat blood culture 04/07 clear. PICC line will be placed tomorrow a.m. # loculated B pleural effusions # small L pneumothorax Thoracic following, had 3d of chemical decortication with intrapleural tPA 04/10-04/12 with decrease in pleural effusion; close follow-up by thoracic surgery Will undergo R-sided chest tube placement today - pleural fluid exudative, culture-negative but had already been on ABX for several days # anemia of chronic inflammation - tranfused 3u pRBCs 04/03/21 + 2u pRBCs 04/07/21; hemoglobin 6.6 today will receive 1 more unit, follow CBC, will keep hemoglobin greater than 7 # coagulopathy - vit K 10 mg PO given; INR 1.6 # acute hypoxic respiratory failure - oxygenation stable on 2 L, wean O2 as tolerated # thrombocytopenia - likely due to sepsis + HCV, resolved # MAT-associated wound - roster clerk consulted # back pain - no focal neurologic signs, pt declines MRI of spine, continue to monitor -> improved - oxycodone + morphine prn # MELITON - SCr normalized, avoid nephrotoxins + continue to monitor # hypoNa - mild, 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, sodium remained stable between 127-129 # transaminasemia - resolved, likely due to sepsis # HCV - Ab positive, viral load pending; HBV immune; HIV negative # opioid use disorder - continue methadone 55 mg/d; Addiction Medicine following # cocaine abuse - prn hydroxyzine, CARE Team # tobacco abuse - NRT # protein-calorie malnutrition - Ensure supplementation # VTE ppx - SCDs # dispo - will need STR for prolonged IV ABX Quality Stroke Does the patient have a stroke diagnosis?: No VTE Prior VTE?: No VTE Risk Level:: Medical - moderate - high VTE Device Contraindication: Treatment Not Indicated VTE Drug Contraindication: N/A - Med Ordered
[2021-04-13] MEDS: Benzonatate 100 MG CAPSULE PO (20:01)
[2021-04-13] MEDS: hydrOXYzine HCL 25 MG TABLET PO (21:42)
[2021-04-14] VITALS (8 sets, daily range): BP systolic 118–142; BP diastolic 55–67; PULSE 65–114; RESP 17–20; TEMP 36.4–39.4; O2SAT 94–96
[2021-04-14] MEDS: Morphine Sulfate 4 MG/ML CARTRIDGE IVPUSH (03:42)
[2021-04-14] MEDS: ceFAZolin Sodium/Dextrose,Iso 2 GM/50 ML PIGGYBACK IV ×3 (03:42→19:48)
[2021-04-14] MEDS: guaiFENesin DM 200/20/10 ML 10 ML SYRUP PO ×4 (07:36→19:48)
[2021-04-14] MEDS: methADONE HCl 20 MG/2 ML ORAL.CONC 55 MG PO (07:36)
[2021-04-14] MEDS: 0.9 % Sodium Chloride Flush 3 ML SYRINGE IVFLUSH ×3 (07:36→19:49)
[2021-04-14 08:40] LABS: Hematocrit 23.8 % (37.0-47.0); Hemoglobin 7.8 g/dl (12.0-16.0); Mean Corpuscular HGB Conc 32.8 g/dl (31.0-35.0); Mean Corpuscular Hemoglobin 28.5 pg (27.0-33.0); Mean Corpuscular Volume 86.9 fL (80.0-98.0); Mean Platelet Volume 8.8 fL (9.4-12.3); Platelet Count 199 X10*3/uL (160-400); Red Blood Count 2.74 X10*6/uL (4.20-5.50); White Blood Count 11.5 X10*3/uL (4.8-10.8)
[2021-04-14] MEDS: oxyCODONE HCl Immed Release 5 MG TABLET PO ×3 (09:01→18:29)
--- NOTE | 2021-04-14 10:34 | PC.NURSE ---
On 04/10/21 the patient was being transported from the PACU to CT by this nurse. The patient stated that she did not want the chest tube placed. Did patient education regarding the importance of the chest tube. The patient verbalized an understanding and stated that she was refusing. Dr Wong spoke with the patient and explained the importance of the chest tube. The patient again refused. It was explained that she would have to wait till Tuesday and the patient agreed. On 04/13/21 the patient agreed and was brought PACU and in PACU refused. Dr Holt spoke with the patient and she still refused. Today I went to the patients room and asked the patient if she would accept the chest tube placement today and the patient stated no. Patient education regarding the chest tube. The patient verbalized an understanding and still refused. Kelsie Taylor Cindy-Op Director informed and stated she would speak to Dr Holt and the shoe planner regarding the refusal, Both were also informed that the PICC line will be placed on the day of discharge to the rehab center.
[2021-04-14 12:56] LABS: HCV Log PCR <1.18 NOT DETECTED Log IU/mL (NOT DETECTED); HepC Viral Load <15 NOT DETECTED IU/mL (NOT DETECTED)
--- NOTE | 2021-04-14 13:35 | P.CNPS_ITS ---
History of Present Illness Date of Service: 04/14/21 Chief Complaint: PNA, endocarditis Reason for Consult: Psych consult was placed for capacity due to refusal of care. Requesting physician: Polo Holt Discussed with referring provider: Yes Sources of Information: patient interviewed and chart reviewed HPI Narrative: Pt is a 25 y.o. Female who carries a dx of severe opiate use disorder, Hep C positive. She presented to [facility] on 03[place]31 with complaint of SOB. She has past medical history significant for right forearm cellulitis, history of IV heroin and cocaine drug abuse. In the ED, pt was noted to have mild leukocytosis, thrombocytopenia, MELITON, mild transaminitis, hypoxia, hypotension, elevated D-dimer, and hyponatremia of 123. She was given IV fluids, antibiotics, lovenox, and placed on supplemental oxygen. Pt was admitted to [facility] for further management of sepsis with bacteremia and infective endocarditis in the setting of multifocal pneumonia with cavitary septic emboli and bilateral loculated pleural effusions, reactive airway disease, R forearm cellulitis with open wound (chronic), severe thrombocytopenia, hyponatremia, MELITON, transaminitis, and elevated D-dimer. Per most recent hospitalist progress note, pt has been provided education on treatment recommendations for PICC line for continued antibiotic administration and R chest tube, however pt has been declining chest tube (despite multiple attempts for placement), refusing thoracocentesis, and refusing to go to tank terminal gauger rehab upon discharge. Per documentation, pt verbally demonstrated an understanding of the consequences of stopping antibiotics with cardiac valve infection that can lead to sepsis and , however remained adamant to go home. Pt is no longer requiring supplemental oxygen, stable on room air. Thrombocytopenia resolved, Cr normalized, back pain improved, transaminitis resolved, and sodium remained stable between 127-129. Pt was seen by beef specialist multiple times, has been titrated up on maintenance dose of methadone, 55 mg daily and given referral for OP management. Pt had been staying with a friend prior to admission and is planning to return, denies having family supports involved in her care. I evaluated the pt this evening and upon interview she reports ?Im doing good.? I asked pt if she is planning to adhere to treatment recommendations to have PICC line and chest tube placement, however pt states ?No, im going home.? When I asked pt how her provider, Dr. Holt, would feel about her decision, pt states ?I dont really care what she has to say.? When asked why pt is so urgently wanting to go home, pt states ?I?ve been here for so long.? She denies having urges to use substances, says the current methadone dose is ?good.? Discussed her medical conditions and pt states ?its okay, i understand the medical issues, i just want to go home. I dont wanna go to another treatment center for a while.? When asked to elaborate on why she is deciding against a short term rehab stay, pt repeats ?I just wanna go home.? When asked to verbally repeat back her understanding of her medical issues, pt states ?I needed a chest tube here [points to her right side] and im gonna need antibiotics, eric reyes, its whatever, i feel fine.? When asked about her understanding of the risks of going home against medical advice, pt states she plans to ?take it easy? and ?I can always come back.? Discussed that if pt has symptoms of shortness of breath, she should return to the hospital. During interview, I reviewed the risks of patient not treating her infections, as this can lead to sepsis and , and asked pt if she is willing to take that risk and pt replied ?yes.?? Pt is denying psych symptoms of depression, anxiety, or agitation [despite appearing irritated during interview], stated ?this has nothing to do with suicidal.? Pt states her sleep and energy are ?fine.? Denies hallucinations or psychotic sx. Denies paranoia. No hx of manic or hypomanic episodes endorsed. Pt eventually cut interview off, saying ?Do i have to answer these questions, no, im not gonna answer these questions.? Past Psychiatric History: -Pt denies past hx of psych hospitalizations. No OP psych services. Medical Evaluation Reviewed: Yes [facility] Medical History (Updated 04/04/21 @ 14:17 by Polo Holt MD) Bacteremia Substance abuse Diagnostics Vital Signs (24Hr): Vital Signs - 24 hr 04/13/21 16:00 04/13/21 20:00 04/14/21 00:00 Temperature 98.2 F 98.9 F 99.4 F Pulse Rate 95 100 65 Respiratory Rate 19 19 17 Blood Pressure 140/66 H 152/61 H 121/58 L Pulse Oximetry 96 96 96 04/14/21 04:00 04/14/21 08:00 04/14/21 12:17 Temperature 98.4 F 98.3 F 97.5 F Pulse Rate 108 H 98 91 Respiratory Rate 18 17 20 Blood Pressure 142/67 H 121/58 L 121/57 L Pulse Oximetry 95 94 95 BMI result Body Mass Index 24.2 Labs Results: 04/14/21 08:29 04/15/21 05:16 Labs: Laboratory Results - last 48 hr 04/07/21 04/13/21 04/13/21 08:12 04:38 04:38 WBC 11.0 H RBC 2.34 L Hgb 6.6 L* Hct 20.4 L* MCV 87.2 MCH 28.2 MCHC 32.4 RDW 18.0 H Plt Count 207 MPV 8.6 L Absolute Nucleated RBC 0.000 Nucleated RBC % (auto) 0.0 PT 18.0 H INR 1.6 H Hep C Viral Load <15 NOT DETECTED Hep C Viral Load Log <1.18 NOT DETECTED Blood Type Antibody Screen Crossmatch 04/13/21 04/14/21 04:38 08:29 WBC 11.5 H RBC 2.74 L Hgb 7.8 L Hct 23.8 L MCV 86.9 MCH 28.5 MCHC 32.8 RDW 17.0 H Plt Count 199 MPV 8.8 L Absolute Nucleated RBC 0.000 Nucleated RBC % (auto) 0.0 PT INR Hep C Viral Load Hep C Viral Load Log Blood Type O Positive Antibody Screen NEGATIVE Crossmatch See Detail Imaging Radiology Impressions: ITS Impressions Chest X-Ray 03/31/21 22:26 IMPRESSION: Patchy bilateral airspace disease, most consistent with Covid pneumonia. Abdomen Ultrasound 04/01/21 09:54 IMPRESSION: Enlarged liver. Thickened edematous gallbladder wall. No gallstones are seen. Differential would include gallbladder wall changes related to liver disease, cholangitis, low albumin, CHF, acalculous cholecystitis and pancreatitis. If there is clinical concern of acalculous cholecystitis, HIDA scan would be recommended. Limited visualization of the pancreas. Small right pleural effusion. Pulmonary Perfusion Imaging 04/01/21 13:43 IMPRESSION: Intermediate probability of pulmonary embolism. These abnormalities may be due to pulmonary emboli or severe pneumonitis, or a combination of the two. If not contraindicated, CTA pulmonary embolism protocol would be helpful in differentiating these. Chest CTA 04/03/21 11:48 IMPRESSION: Very limited exam due to artifact from respiratory motion and extensive airspace disease and adenopathy. No large or central pulmonary embolism is seen. Evaluation of the segmental and subsegmental pulmonary arteries is markedly limited. Multiple bilateral pulmonary nodules, some of which appear cavitary and areas of airspace disease or consolidation in the lower lobes suggestive of pneumonia, left greater than right. Bilateral pleural effusions left greater than right. The left pleural effusion is partially loculated. Enlarged hilar and mediastinal lymph nodes. Chest CT appearance is somewhat atypical for Covid infection. Septic emboli, granulomatous or fungal infection, vasculitis, other causes of cavitary pneumonia such as Staphylococcus and Klebsiella pneumonia and neoplasm should be also considered. Prominent liver and spleen. Right axillary lymphadenopathy. VTE: neg Chest X-Ray 04/04/21 20:32 IMPRESSION: Worsening bilateral pulmonary opacities Small to moderate left effusion is minimally increased in size. Chest X-Ray 04/06/21 08:32 IMPRESSION: Worsened bilateral pleural effusions, loculated on the left. Persistent bilateral airspace disease and nodular opacities consistent with multifocal pneumonia. New right midlung opacity may represent fluid in the right major fissure or developing consolidative pneumonia. Chest CT 04/06/21 14:09 IMPRESSION: Worsened bilateral pleural effusions, left greater than right. The left pleural fluid is presumably loculated as it is seen tracking along the left lateral chest wall in a nondependent position. Innumerable nodular opacities and areas of nodular consolidation are seen, many of which are cavitary. These are increased in number from the prior study 04/03/2021. The previously seen abnormalities a roughly similar in size. The overall appearance, particularly with the cavitation, is more suggestive of septic emboli or other multifocal pneumonia, rather than viral COVID pneumonitis. In addition, there is worsening confluent consolidation at the left lung base and in the superior segment of the right lower lobe consistent with worsening focal consolidative pneumonia. Fleischner guidelines were followed. Chest Tube Insertion 04/08/21 16:36 IMPRESSION: Successful CT fluoroscopy-guided insertion of a 6.3-Chinese left chest tube catheter with its tip along the left lateral chest wall connected to waterseal drainage and subsequently to be connected to -20 cm of wall suction. There were no immediate complications. The patient was sent to the floor in satisfactory condition same as received previously. Chest X-Ray 04/09/21 08:20 IMPRESSION: Left-sided chest tube in place with no significant change in left loculated pleural effusion. Small amount of air seen within the left pleural space, likely either iatrogenic from a small amount of air introduced with chest tube or related to trapped lung with some fluid being removed. Increase in size of partially loculated right pleural effusion. Diffuse bilateral regions of interstitial and airspace disease. Chest X-Ray 04/10/21 07:20 IMPRESSION: Interval decrease in left pleural effusion. New small left pneumothorax. Bilateral airspace disease and nodular opacities unchanged. Moderate size right pleural effusion. Findings will be communicated by the [place] work flow cadd drafter Haven Askew. Chest X-Ray 04/11/21 06:42 IMPRESSION: No significant change from prior. Small left and moderate right pleural effusions. Patchy bilateral opacities. Chest CT 04/12/21 06:00 IMPRESSION: 1. Significant improvement of the prior left pleural effusion. Tiny left-sided hydropneumothorax remains. Pigtail catheter in place. 2. Similar appearance of the right-sided pleural effusion with loculation along the peripheral mid hemithorax. 3. Multifocal nodular opacities throughout the lungs with cavitation, showing some increase in size from prior. This is most concerning for septic emboli. Increased bilateral lower lung consolidation which could be in part atelectasis. Fleischner guidelines were followed. Chest X-Ray 04/13/21 06:15 IMPRESSION: No significant change from prior. Small left hydropneumothorax. Moderate right pleural effusion. Bilateral airspace opacities. Chest X-Ray 04/14/21 08:45 IMPRESSION: No change in bilateral airspace opacities and cavity formation seen throughout the lungs. Stable position of left chest tube. Tiny left lateral pneumothorax unchanged. Moderate right pleural effusion unchanged. Mental Status Exam Mental Status Exam Narrative: A&O. Pt is lying down in recliner, sitting comfortably, has juice and food in front of her, knitting, hygiene okay, normal body habitus. Good eye contact, attentive. No Tics or Tremors. No abnormal involuntary movements. Pt is not forthcoming or entirely cooperative, tolerating questions to a point, difficult to engage but does not appear paranoid or suspicious, mildy irritable. Non-pressured speech, spontaneous with regular rate and rhythm, normal volume and prosody. No prolonged speech latency or dysarthria. Mood is ?fine,? affect is constricted. Denies SI/SIB/HI upon inquiry. Denies A/VH or delusional thought content. Thoughts are coherent, organized, goal oriented on wanting to go home. No known cognitive or memory impairment. Insight/ Judgment limited but adequate. Medications Medications Current Medications Acetaminophen (Acetaminophen 325 Mg Tablet) 650 mg PO Q6H PRN PRN Reason: Fever Last Admin: 04/08/21 16:27 Dose: 650 mg Documented by: Benzonatate (Benzonatate 100 Mg Capsule) 100 mg PO TID PRN PRN Reason: Cough Last Admin: 04/13/21 20:01 Dose: 100 mg Documented by: Guaifenesin/Dextromethorphan (Guaifenesin Dm 200/20/10 Ml 10 Ml Syrup) 10 ml PO QID [facility] Last Admin: 04/14/21 13:29 Dose: 10 ml Documented by: Hydroxyzine HCl (Hydroxyzine Hcl 25 Mg Tablet) 25 mg PO Q6H PRN PRN Reason: Anxiety Last Admin: 04/13/21 21:42 Dose: 25 mg Documented by: Cefazolin Sodium/Dextrose (Ancef) 2 gm in 50 mls @ 100 mls/hr IV Q8H [facility] Last Admin: 04/14/21 13:29 Dose: 100 mls/hr Documented by: Melatonin (Melatonin 3 Mg Tablet) 6 mg PO BEDTIME PRN PRN Reason: Insomnia Last Admin: 04/04/21 01:30 Dose: 6 mg Documented by: Methadone HCl (Methadone Hcl 20 Mg/2 Ml Oral.Conc) 55 mg PO DAILY [facility] Last Admin: 04/14/21 07:36 Dose: 55 mg Documented by: Morphine Sulfate (Morphine Sulfate 4 Mg/Ml Cartridge) 4 mg IVPUSH Q4H PRN; Protocol PRN Reason: Pain, Severe (Pain Scale 7-10) Last Admin: 04/14/21 03:42 Dose: 4 mg Documented by: Nicotine Polacrilex (Nicotine Polacrilex 2 Mg Gum) 2 mg BUCCAL Q2H PRN PRN Reason: Nicotine Cravings Last Admin: 04/04/21 05:47 Dose: 2 mg Documented by: Oxycodone HCl (Oxycodone Hcl Immed Release 5 Mg Tablet) 5 mg PO Q4H PRN PRN Reason: Pain, Moderate (Pain Scale 4-6 Last Admin: 04/14/21 13:29 Dose: 5 mg Documented by: Pharmacy Consult (Consult Rx Perform Med Rec) 1 each MISCELLANE ONCE PRN PRN Reason: Consult order Senna (Sennosides 8.6 Mg Tablet) 17.2 mg PO BEDTIME PRN PRN Reason: Constipation Sodium Chloride (0.9 % Sodium Chloride Flush 3 Ml Syringe) 3 ml IVFLUSH QSHIFT [facility] Last Admin: 04/14/21 07:36 Dose: 3 ml Documented by: Allergies Allergies Allergy/AdvReac Type Severity Reaction Status Date / Time No Known Allergies Allergy Verified 05/12/20 05:11 Assessment & Plan Assessment & Plan (1) Septic embolism: Status: Acute Code(s): I76 - Septic arterial embolism (2) Cocaine use disorder, severe, dependence: Status: Acute Code(s): F14.20 - Cocaine dependence, uncomplicated (3) Opioid use disorder, severe, dependence: Status: Acute Code(s): F11.20 - Opioid dependence, uncomplicated (4) Acute respiratory failure with hypoxia: Status: Acute Code(s): J96.01 - Acute respiratory failure with hypoxia (5) MELITON (acute kidney injury): Status: Acute Code(s): N17.9 - Acute kidney failure, unspecified (6) Thrombocytopenia: Status: Acute Code(s): D69.6 - Thrombocytopenia, unspecified Assessment and Plan: Pt is a 25 y.o. Female who carries a dx of severe opiate use disorder, Hep C positive. She presented to [facility] on 03/31 with complaint of SOB, admitted for sepsis. She denies past psych diagnoses or history of IPLOC or OP psych dylan ament. Denies hx of being on psychiatric medications. Consult placed for capacity as pt is requesting to leave AMA and refusing intervention of PICC line and chest tube placement. Pt was able to verbalize understanding of her medical conditions, as well as the risks and benefits of her treatment decisions. She is demonstrating a capacity to make healthcare decisions. No collateral contacts, as pt denies having family or reliable friend support. -Continue monitoring medically. Patient is currently medically cleared. -Pt is deemed to have capacity and is encouraged to adhere to treatment recom mendations due to risks of sepsis and if she does not treat infections adequately. I have shared this with Dr. Holt, as well as Dr. Ruby, clinical laboratory medical director of psychiatric services, and Jinny Wright APRN and beef specialist. Thank you for this consultation. If you have any questions or concerns, please do not hesitate to contact psychiatry service. I spent minutes with the patient and/or on the patient floor today, greater than?50% of which was spent counseling/coordinating care.
--- NOTE | 2021-04-14 14:03 | P.PNTS_ITS ---
Subjective Subjective Date of Service: 04/14/21 Interval history: Late entry. Patient seen/examined at 8:00am. Patient's left sided chest tube remained in place overnight. Continues to have a cough productive of brown sputum. States she went down to get her right sided pigtail chest tube last night, but then refused because I was sitting down there all night . States she does not want the tube today because she wants to eat breakfast. States overall her breathing feels better, but continues to get SOB with movement. Physical Exam Vital Signs: Vital Signs: Last Vital Signs Temp 97.5 F 04/14/21 12:17 Pulse 91 04/14/21 12:17 Resp 20 04/14/21 12:17 BP 121/57 L 04/14/21 12:17 Pulse Ox 95 04/14/21 12:17 BMI result Body Mass Index 24.2 General: No acute distress, resting comfortably in recliner, well developed. Head: Normocephalic, atraumatic, symmetric Eyes: Sclera anicteric, eyelids without edema or erythema, +EOMS intact ENT: Oral mucosa and tongue are moist Neck: Soft, supple, symmetric, trachea midline, no crepitus Cardiovascular: Regular rate and rhythm Respiratory: Diminished BS at bilateral bases R>L, breathing nonlabored, speaking in full sentences, on oxygen via nasal cannula. No use of accessory muscles. Left pigtail chest tube x 1 to [facility], serosang drainage, no air leak. Flushed pigtail with 5cc NS at time of my visit. Neurological: Alert and oriented x 3, no focal neurological deficit noted Psychiatric: No agitation Procedures Date of Service Date of Service: 04/14/21 Progress Note: A&P Assessment and plan (1) Pleural effusion: Status: Acute Assessment and Plan: 25 year old female with IVDA (heroin, cocaine) admitted to [facility] with severe sepsis with anemia and coagulopathy treated with PRBC and vitamin K, bacteremia, tricuspid valve endocarditis, septic pulmonary emboli, bilateral pleural effusion, thrombocytopenia, and hyponatremia.? +HCV ab. Loculated left pleural effusion * s/p IR pigtail catheter placement on 04/08/21. * s/p 3 rounds of chemical decortication with tPA and DNase. Tolerated this well with good results. * Will plan for removal of left chest tube tomorow if continues to have low outputs and a stable CXR. Right pleural effusion * Recommend pigtail chest tube be placed in to this effusion as well to ensure drainage should this also be infectious fluid. * Pleural fluid studies + culture ordered. * Timing to tube based on IR. Dr. Holt to call and arrange. Continue IV abx and routine medical care per primary team. Fall Risk Details Current Medications: Current Medications Acetaminophen (Acetaminophen 325 Mg Tablet) 650 mg PO Q6H PRN PRN Reason: Fever Last Admin: 04/08/21 16:27 Dose: 650 mg Documented by: Benzonatate (Benzonatate 100 Mg Capsule) 100 mg PO TID PRN PRN Reason: Cough Last Admin: 04/13/21 20:01 Dose: 100 mg Documented by: Guaifenesin/Dextromethorphan (Guaifenesin Dm 200/20/10 Ml 10 Ml Syrup) 10 ml PO QID [facility] Last Admin: 04/14/21 13:29 Dose: 10 ml Documented by: Hydroxyzine HCl (Hydroxyzine Hcl 25 Mg Tablet) 25 mg PO Q6H PRN PRN Reason: Anxiety Last Admin: 04/13/21 21:42 Dose: 25 mg Documented by: Cefazolin Sodium/Dextrose (Ancef) 2 gm in 50 mls @ 100 mls/hr IV Q8H [facility] Last Admin: 04/14/21 13:29 Dose: 100 mls/hr Documented by: Melatonin (Melatonin 3 Mg Tablet) 6 mg PO BEDTIME PRN PRN Reason: Insomnia Last Admin: 04/04/21 01:30 Dose: 6 mg Documented by: Methadone HCl (Methadone Hcl 20 Mg/2 Ml Oral.Conc) 55 mg PO DAILY [facility] Last Admin: 04/14/21 07:36 Dose: 55 mg Documented by: Morphine Sulfate (Morphine Sulfate 4 Mg/Ml Cartridge) 4 mg IVPUSH Q4H PRN; Protocol PRN Reason: Pain, Severe (Pain Scale 7-10) Last Admin: 04/14/21 03:42 Dose: 4 mg Documented by: Nicotine Polacrilex (Nicotine Polacrilex 2 Mg Gum) 2 mg BUCCAL Q2H PRN PRN Reason: Nicotine Cravings Last Admin: 04/04/21 05:47 Dose: 2 mg Documented by: Oxycodone HCl (Oxycodone Hcl Immed Release 5 Mg Tablet) 5 mg PO Q4H PRN PRN Reason: Pain, Moderate (Pain Scale 4-6 Last Admin: 04/14/21 13:29 Dose: 5 mg Documented by: Pharmacy Consult (Consult Rx Perform Med Rec) 1 each MISCELLANE ONCE PRN PRN Reason: Consult order Senna (Sennosides 8.6 Mg Tablet) 17.2 mg PO BEDTIME PRN PRN Reason: Constipation Sodium Chloride (0.9 % Sodium Chloride Flush 3 Ml Syringe) 3 ml IVFLUSH QSHIFT [facility] Last Admin: 04/14/21 07:36 Dose: 3 ml Documented by: Time Spent With Patient Time: Total time spent is greater than 50% in coordination of care (as documented) at patient's floor/unit and/or counseling patient: Time with patient: 15 - 24 minutes Quality Stroke Does the patient have a stroke diagnosis?: No VTE Prior VTE?: No VTE Risk Level:: Medical - moderate - high VTE Device Contraindication: Treatment Not Indicated VTE Drug Contraindication: N/A - Med Ordered
--- NOTE | 2021-04-14 15:45 | P.PNADD_ITS ---
Subjective Subjective Date of Service: 04/14/21 Reason For Visit: PNA, endocarditis Interim History: Patient somewhat guarded and irritable Has declined chest tube placement and SNF admission to continue abx treatment Would like to go home. Limited insight related to seriousness of current medical issues. Reports that she feels better and does not want to continue with treatment recommendations. ABle to articulate that she knew lungs had fluid and goal of chest tube was to remove that fluid. Discussion regarding this cut short as patient verbalized that she was sick of talking about this and getting pissed off . Was able to engage in harm reduction discussion regarding caring for herself once she was at home, including minimizing smoking and any other behaviors that may negatively impact her health issues. Patient verbalized understanding. Encouraged patient to return to ED if she needed to. Patient agreeable Review of Systems Acute medical concerns: Yes Medical Review of Systems: unchanged Mental Status Exam Mental Status Exam Patient Appearance: Appropriate Patient Orientation: Person, Place, Time and Situation Level of Consciousness: Awake and Appropriate Patient Behavior: Guarded and Avoidant Mood Description: Blunted Affect Description: Blunted Thought Process: Intact Thought Content: positive for Intact and positive for [place] Judgement: Fair Diagnostics Vital Signs (24Hr): Vital Signs - 24 hr 04/13/21 16:00 04/13/21 20:00 04/14/21 00:00 Temperature 98.2 F 98.9 F 99.4 F Pulse Rate 95 100 65 Respiratory Rate 19 19 17 Blood Pressure 140/66 H 152/61 H 121/58 L Pulse Oximetry 96 96 96 04/14/21 04:00 04/14/21 08:00 04/14/21 12:17 Temperature 98.4 F 98.3 F 97.5 F Pulse Rate 108 H 98 91 Respiratory Rate 18 17 20 Blood Pressure 142/67 H 121/58 L 121/57 L Pulse Oximetry 95 94 95 BMI result Body Mass Index 24.2 Labs Results: 04/14/21 08:29 04/12/21 05:36 Labs: Laboratory Results - last 48 hr 04/07/21 04/13/21 04/13/21 08:12 04:38 04:38 WBC 11.0 H RBC 2.34 L Hgb 6.6 L* Hct 20.4 L* MCV 87.2 MCH 28.2 MCHC 32.4 RDW 18.0 H Plt Count 207 MPV 8.6 L Absolute Nucleated RBC 0.000 Nucleated RBC % (auto) 0.0 PT 18.0 H INR 1.6 H Hep C Viral Load <15 NOT DETECTED Hep C Viral Load Log <1.18 NOT DETECTED Blood Type Antibody Screen Crossmatch 04/13/21 04/14/21 04:38 08:29 WBC 11.5 H RBC 2.74 L Hgb 7.8 L Hct 23.8 L MCV 86.9 MCH 28.5 MCHC 32.8 RDW 17.0 H Plt Count 199 MPV 8.8 L Absolute Nucleated RBC 0.000 Nucleated RBC % (auto) 0.0 PT INR Hep C Viral Load Hep C Viral Load Log Blood Type O Positive Antibody Screen NEGATIVE Crossmatch See Detail Imaging Radiology Impressions: ITS Impressions Chest X-Ray 03/31/21 22:26 IMPRESSION: Patchy bilateral airspace disease, most consistent with Covid pneumonia. Abdomen Ultrasound 04/01/21 09:54 IMPRESSION: Enlarged liver. Thickened edematous gallbladder wall. No gallstones are seen. Differential would include gallbladder wall changes related to liver disease, cholangitis, low albumin, CHF, acalculous cholecystitis and pancreatitis. If there is clinical concern of acalculous cholecystitis, HIDA scan would be recommended. Limited visualization of the pancreas. Small right pleural effusion. Pulmonary Perfusion Imaging 04/01/21 13:43 IMPRESSION: Intermediate probability of pulmonary embolism. These abnormalities may be due to pulmonary emboli or severe pneumonitis, or a combination of the two. If not contraindicated, CTA pulmonary embolism protocol would be helpful in differentiating these. Chest CTA 04/03/21 11:48 IMPRESSION: Very limited exam due to artifact from respiratory motion and extensive airspace disease and adenopathy. No large or central pulmonary embolism is seen. Evaluation of the segmental and subsegmental pulmonary arteries is markedly limited. Multiple bilateral pulmonary nodules, some of which appear cavitary and areas of airspace disease or consolidation in the lower lobes suggestive of pneumonia, left greater than right. Bilateral pleural effusions left greater than right. The left pleural effusion is partially loculated. Enlarged hilar and mediastinal lymph nodes. Chest CT appearance is somewhat atypical for Covid infection. Septic emboli, granulomatous or fungal infection, vasculitis, other causes of cavitary pneumonia such as Staphylococcus and Klebsiella pneumonia and neoplasm should be also considered. Prominent liver and spleen. Right axillary lymphadenopathy. VTE: neg Chest X-Ray 04/04/21 20:32 IMPRESSION: Worsening bilateral pulmonary opacities Small to moderate left effusion is minimally increased in size. Chest X-Ray 04/06/21 08:32 IMPRESSION: Worsened bilateral pleural effusions, loculated on the left. Persistent bilateral airspace disease and nodular opacities consistent with multifocal pneumonia. New right midlung opacity may represent fluid in the right major fissure or developing consolidative pneumonia. Chest CT 04/06/21 14:09 IMPRESSION: Worsened bilateral pleural effusions, left greater than right. The left pleural fluid is presumably loculated as it is seen tracking along the left lateral chest wall in a nondependent position. Innumerable nodular opacities and areas of nodular consolidation are seen, many of which are cavitary. These are increased in number from the prior study 04/03/2021. The previously seen abnormalities a roughly similar in size. The overall appearance, particularly with the cavitation, is more suggestive of septic emboli or other multifocal pneumonia, rather than viral COVID pneumonitis. In addition, there is worsening confluent consolidation at the left lung base and in the superior segment of the right lower lobe consistent with worsening focal consolidative pneumonia. Fleischner guidelines were followed. Chest Tube Insertion 04/08/21 16:36 IMPRESSION: Successful CT fluoroscopy-guided insertion of a 6.3-[place] left chest tube catheter with its tip along the left lateral chest wall connected to waterseal drainage and subsequently to be connected to -20 cm of wall suction. There were no immediate complications. The patient was sent to the floor in satisfactory condition same as received previously. Chest X-Ray 04/09/21 08:20 IMPRESSION: Left-sided chest tube in place with no significant change in left loculated pleural effusion. Small amount of air seen within the left pleural space, likely either iatrogenic from a small amount of air introduced with chest tube or related to trapped lung with some fluid being removed. Increase in size of partially loculated right pleural effusion. Diffuse bilateral regions of interstitial and airspace disease. Chest X-Ray 04/10/21 07:20 IMPRESSION: Interval decrease in left pleural effusion. New small left pneumothorax. Bilateral airspace disease and nodular opacities unchanged. Moderate size right pleural effusion. Findings will be communicated by the [place] work flow museum director Haven Askew. Chest X-Ray 04/11/21 06:42 IMPRESSION: No significant change from prior. Small left and moderate right pleural effusions. Patchy bilateral opacities. Chest CT 04/12/21 06:00 IMPRESSION: 1. Significant improvement of the prior left pleural effusion. Tiny left-sided hydropneumothorax remains. Pigtail catheter in place. 2. Similar appearance of the right-sided pleural effusion with loculation along the peripheral mid hemithorax. 3. Multifocal nodular opacities throughout the lungs with cavitation, showing some increase in size from prior. This is most concerning for septic emboli. Increased bilateral lower lung consolidation which could be in part atelectasis. Fleischner guidelines were followed. Chest X-Ray 04/13/21 06:15 IMPRESSION: No significant change from prior. Small left hydropneumothorax. Moderate right pleural effusion. Bilateral airspace opacities. Chest X-Ray 04/14/21 08:45 IMPRESSION: No change in bilateral airspace opacities and cavity formation seen throughout the lungs. Stable position of left chest tube. Tiny left lateral pneumothorax unchanged. Moderate right pleural effusion unchanged. Medications Medications Current Medications Acetaminophen (Acetaminophen 325 Mg Tablet) 650 mg PO Q6H PRN PRN Reason: Fever Last Admin: 04/08/21 16:27 Dose: 650 mg Documented by: Benzonatate (Benzonatate 100 Mg Capsule) 100 mg PO TID PRN PRN Reason: Cough Last Admin: 04/13/21 20:01 Dose: 100 mg Documented by: Guaifenesin/Dextromethorphan (Guaifenesin Dm 200/20/10 Ml 10 Ml Syrup) 10 ml PO QID [facility] Last Admin: 04/14/21 13:29 Dose: 10 ml Documented by: Hydroxyzine HCl (Hydroxyzine Hcl 25 Mg Tablet) 25 mg PO Q6H PRN PRN Reason: Anxiety Last Admin: 04/13/21 21:42 Dose: 25 mg Documented by: Cefazolin Sodium/Dextrose (Ancef) 2 gm in 50 mls @ 100 mls/hr IV Q8H [facility] Last Infusion: 04/14/21 14:11 Dose: Infused Documented by: Melatonin (Melatonin 3 Mg Tablet) 6 mg PO BEDTIME PRN PRN Reason: Insomnia Last Admin: 04/04/21 01:30 Dose: 6 mg Documented by: Methadone HCl (Methadone Hcl 20 Mg/2 Ml Oral.Conc) 55 mg PO DAILY [facility] Last Admin: 04/14/21 07:36 Dose: 55 mg Documented by: Morphine Sulfate (Morphine Sulfate 4 Mg/Ml Cartridge) 4 mg IVPUSH Q4H PRN; Protocol PRN Reason: Pain, Severe (Pain Scale 7-10) Last Admin: 04/14/21 03:42 Dose: 4 mg Documented by: Nicotine Polacrilex (Nicotine Polacrilex 2 Mg Gum) 2 mg BUCCAL Q2H PRN PRN Reason: Nicotine Cravings Last Admin: 04/04/21 05:47 Dose: 2 mg Documented by: Oxycodone HCl (Oxycodone Hcl Immed Release 5 Mg Tablet) 5 mg PO Q4H PRN PRN Reason: Pain, Moderate (Pain Scale 4-6 Last Admin: 04/14/21 13:29 Dose: 5 mg Documented by: Pharmacy Consult (Consult Rx Perform Med Rec) 1 each MISCELLANE ONCE PRN PRN Reason: Consult order Senna (Sennosides 8.6 Mg Tablet) 17.2 mg PO BEDTIME PRN PRN Reason: Constipation Sodium Chloride (0.9 % Sodium Chloride Flush 3 Ml Syringe) [facility] Last Admin: 04/14/21 07:36 Dose: 3 ml Documented by: Allergies Allergies Allergy/AdvReac Type Severity Reaction Status Date / Time No Known Allergies Allergy Verified 05/12/20 05:11 Assessment & Plan Assessment & Plan (1) Opioid use disorder, severe, dependence: Status: Acute Code(s): F11.20 - Opioid dependence, uncomplicated Assessment and Plan: * no change to methadone dose * take home narcan at discharge tomorrow * RSRN to follow up in AM prior to D/C I spent _20 minutes with the patient and/or on the patient floor today, greater than?50% of which was spent counseling/coordinating care.
--- NOTE | 2021-04-14 16:13 | HO.PM.IMPN ---
Subjective Subjective Date of Service: 04/14/21 Interval History: Sitting comfortably knitting, gets frustrated when asked questions, declined chest tube, refusing thoracocentesis , does not want to lie flat does not want to have any pain, refusing to go to rehab. Review of Systems Review of Systems: Yes all other systems are reviewed and are negative Physical Exam Vital Signs: Vital Signs: Last Vital Signs Temp 97.5 F 04/14/21 12:17 Pulse 91 04/14/21 12:17 Resp 20 04/14/21 12:17 BP 121/57 L 04/14/21 12:17 Pulse Ox 95 04/14/21 12:17 BMI result Body Mass Index 24.2 Gen:? Awake alert,?no acute distress Neck: supple, no JVD Lungs: diminished bilateral bases,b/l nspiratory crackles, L chest tube to suction with serosanguinous drainage Heart: regular rate and rhythm Abd: soft, non-tender, non-distended Ext: no edema Skin: warm/well-perfused, R forearm ulcer with raised margins without drainage Neuro: alert and oriented x3, no focal findings Musculoskeletal no deformity Objective Data Active Medications Acetaminophen (Acetaminophen 325 Mg Tablet) 650 mg PO Q6H PRN PRN Reason: Fever Last Admin: 04/08/21 16:27 Dose: 650 mg Documented by: NOEL Benzonatate (Benzonatate 100 Mg Capsule) 100 mg PO TID PRN PRN Reason: Cough Last Admin: 04/13/21 20:01 Dose: 100 mg Documented by: ALON Guaifenesin/Dextromethorphan (Guaifenesin Dm 200/20/10 Ml 10 Ml Syrup) 10 ml PO QID [facility] Last Admin: 04/14/21 13:29 Dose: 10 ml Documented by: ELIZABETH Hydroxyzine HCl (Hydroxyzine Hcl 25 Mg Tablet) 25 mg PO Q6H PRN PRN Reason: Anxiety Last Admin: 04/13/21 21:42 Dose: 25 mg Documented by: ALON Cefazolin Sodium/Dextrose (Ancef) 2 gm in 50 mls @ 100 mls/hr IV Q8H [facility] Last Infusion: 04/14/21 14:11 Dose: 0 mls/hr Documented by: ELIZABETH Melatonin (Melatonin 3 Mg Tablet) 6 mg PO BEDTIME PRN PRN Reason: Insomnia Last Admin: 04/04/21 01:30 Dose: 6 mg Documented by: CARMEN Methadone HCl (Methadone Hcl 20 Mg/2 Ml Oral.Conc) 55 mg PO DAILY [facility] Last Admin: 04/14/21 07:36 Dose: 55 mg Documented by: ELIZABETH Morphine Sulfate (Morphine Sulfate 4 Mg/Ml Cartridge) 4 mg IVPUSH Q4H PRN; Protocol PRN Reason: Pain, Severe (Pain Scale 7-10) Last Admin: 04/14/21 03:42 Dose: 4 mg Documented by: CASTILKelly Nicotine Polacrilex (Nicotine Polacrilex 2 Mg Gum) 2 mg BUCCAL Q2H PRN PRN Reason: Nicotine Cravings Last Admin: 04/04/21 05:47 Dose: 2 mg Documented by: CARMEN Oxycodone HCl (Oxycodone Hcl Immed Release 5 Mg Tablet) 5 mg PO Q4H PRN PRN Reason: Pain, Moderate (Pain Scale 4-6 Last Admin: 04/14/21 13:29 Dose: 5 mg Documented by: ELIZABETH Pharmacy Consult (Consult Rx Perform Med Rec) 1 each MISCELLANE ONCE PRN PRN Reason: Consult order Senna (Sennosides 8.6 Mg Tablet) 17.2 mg PO BEDTIME PRN PRN Reason: Constipation Sodium Chloride (0.9 % Sodium Chloride Flush 3 Ml Syringe) 3 ml IVFLUSH QSHIFT [facility] Last Admin: 04/14/21 07:36 Dose: 3 ml Documented by: ELIZABETH Labs CBC & Chem 7: 04/14/21 08:29 04/12/21 05:36 Labs: Laboratory Results - last 24 hr 04/07/21 04/14/21 08:12 08:29 MCV 86.9 MCH 28.5 MCHC 32.8 RDW 17.0 H Plt Count 199 MPV 8.8 L Absolute Nucleated RBC 0.000 Nucleated RBC % (auto) 0.0 Hep C Viral Load <15 NOT DETECTED Hep C Viral Load Log <1.18 NOT DETECTED Microbiology Microbiology Results: Microbiology 04/08/21 16:00 Gram Stain - Final Pleural Fluid Routine Culture - Final No growth after 2 days Anaerobic Culture - Final NO GROWTH AFTER 5 DAYS Assessment and Plan (1) Pleural effusion: Status: Acute (2) Septic embolism: Status: Acute (3) Infective endocarditis: Status: Acute (4) Cocaine use disorder, severe, dependence: Status: Acute (5) Opioid use disorder, severe, dependence: Status: Acute (6) Acute respiratory failure with hypoxia: Status: Acute Assessment and Plan: 25yo F with history of IV heroin + cocaine abuse, recent RUE cellulitis with open wound,p/w SOB and admitted for severe sepsis found to be bacteremic with TV endocarditis complicated by cavitary septic emboli + bilateral loculated pleural effusions # severe sepsis/ MSSA + Streptococcus dysgalactiae bacteremia/infective endocarditis [2.77 x 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] multifocal pneumonia with cavitary septic emboli - WBC and lactate normalized, got 7d of vancomycin- changed to cefazolin 2g IV q8h 04/08/21, on day #, repeat blood culture 04/07 clear. ? Patient refusing to go to rehab facility, therefore PICC line cannot be placed due to history of IV drug use, refusing thoracocentesis, declined chest tube placement x3, spoke with patient in length in the presence of RN and explained the consequences of stopping antibiotics With cardiac valve infection that can lead to sepsis and patient understand the consequences, repeat the same that she can but still adamant to go home. Obtained psych consult for competency due to refusal of care. # loculated B pleural effusions/# small L pneumothorax Chest x-ray this a.m. showed no change in bilateral airspace opacities and cavity formation throughout lungs tiny left lateral pneumothorax unchanged and moderate right pleural effusion unchanged ? Thoracic following, had 3d of chemical decortication with intrapleural tPA 04/10-04/12 with decrease in pleural effusion; spoke with thoracic surgery PA plan is for chest tube to be removed at am pleural fluid exudative, culture-negative but had already been on ABX for several days Patient refused right-sided chest tube placement again today, she has declined procedure x2 in the past Case discussed with thoracic surgery they recommended right-sided thoracocentesis and pigtail catheter however patient declines any procedure since she does not want pain # anemia of chronic inflammation - tranfused 3u pRBCs 04/03/21 + 2u pRBCs 04/07/21; 1 unit packed RBC on 04/13 repeat hematocrit stable today # coagulopathy - vit K 10 mg PO given; INR 1.6 # acute hypoxic respiratory failure - oxygenation stable on 2 L, wean O2 as tolerated # thrombocytopenia - likely due to sepsis + HCV, resolved # MAT-associated wound - wound care # back pain - no focal neurologic signs, pt declines MRI of spine, continue to monitor -> improved - oxycodone + morphine prn # MELITON - SCr normalized, avoid nephrotoxins + continue to monitor # hypoNa - mild, 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, sodium remained stable between 127-129 # transaminasemia - resolved, likely due to sepsis # HCV - Ab positive, viral load not detected, HBV immune; HIV negative # opioid use disorder - continue methadone 55 mg/d; Addiction Medicine following closely # cocaine abuse - prn hydroxyzine, CARE Team # tobacco abuse - NRT # protein-calorie malnutrition - Ensure supplementation # VTE ppx - SCDs # dispo Wishes to be discharged home declined a rehab facility Quality Stroke Does the patient have a stroke diagnosis?: No VTE Prior VTE?: No VTE Risk Level:: Medical - moderate - high VTE Device Contraindication: Treatment Not Indicated VTE Drug Contraindication: N/A - Med Ordered
--- NOTE | 2021-04-14 16:23 | MHC.CM.PN ---
ELECTRONIC MEDICAL RECORD REVIEWED PER HOSPITLAIST PATIENT CAN BE DISCHAGRED TO REHAB FOR SHELTER IV ABX ONCE WE HAVE SECURED A BED AND PATIENT IS WILLING TO OGO . I MET WITH HER AND SHE REFUSED TO EVEN TALK ABOUT GOING TO REHAB FOR IOV ABX AND SAID SHE CAN GO HOME , I EXPLIANED WHY SHE COULD NOT GO HOME WITH HER SUBSTANCE ABUSE HISTORY AND WE WERE CONCERNED FOR HER SAFETY , SHE REPORTED , SHE IS GOING HOME AND NO LONGER NEEDS THE ABX AND FEELING BETTER, THIS WAS RE[facility] TO [facility] H[facility]IST SPOKE WITH [employer] FROM HERE AT [facility] SHE MET WITH PATIENT AND WITH HOSPITALIST , THEY EXPLAINED IN GREAT DETAIL HER CURRENT NEEDS TO CARE FOR HER DIAGNOSIS AND THE [id number] SHE CAN EDURE IF NOT COMPLETING WITH THE TRWATMENT , PER MICKEY SHE UNDERSTANDS AND WAS ABBLE TO VERBALIZE BACK THE SIDE EFFECTS . PATIENT HAS ALSO MET WITH [facility] AND WAS STARTED ON [facility] ON ADMISSION AND WILL BE SET UP FOR OUT PATIENT [facility] CLINCI DISCHARGE PLAN ? MARISA WITH SERVICES [facility] CLINIC PROGRAM , AND [facility] CLINICAL UPDATES IN CASE SHE CHANGES HER MOND
--- NOTE | 2021-04-14 16:55 | PC.NURSE ---
this rn with Dr. Holt - pt educated on importance of Picc line and chest tube placement , pt verbalized that she refuses to have picc line and chest tube placement , pt verbalized understanding of consequences of not having procedures done . pt insist on going home and not to a rehab to cont abx .
[2021-04-14] MEDS: Acetaminophen 325 MG TABLET 650 MG PO (19:51)
[2021-04-14] MEDS: Melatonin 3 MG TABLET 6 MG PO (19:51)
[2021-04-14] MEDS: hydrOXYzine HCL 25 MG TABLET PO (19:52)
[2021-04-14] MEDS: Benzonatate 100 MG CAPSULE PO (19:52)
--- NOTE | 2021-04-14 22:47 | PM.PNNEP ---
Subjective Subjective Date of Service: 04/14/21 Interval history: Seen and examine, events noted Physical Exam Vital Signs: Vital Signs: Last Vital Signs Temp 99.3 F 04/14/21 20:57 Pulse 114 H 04/14/21 19:50 Resp 19 04/14/21 19:50 BP 134/67 04/14/21 19:50 Pulse Ox 94 04/14/21 19:50 BMI result Body Mass Index 24.2 Const: Other: Disheveled General: comfortable, no acute distress and alert Orientation/consciousness: patient oriented x3 Limitations: no limitations HENMT: Other: tacky mucous membranes Head: Yes normal to inspection and Yes normocephalic Ears: hearing grossly normal bilaterally General nose exam: Normal external nose present Face and sinus: Yes normal facial exam Mouth: Normal oral and palatal mucosa present Throat: Yes posterior oropharynx normal Eyes: General: appearance normal, both eyes and all related structures Pupils: Equal, round and reactive pupils present EOM: EOMs intact bilaterally Neck: Neck: Yes normal visual inspection and Yes supple Chest: Chest palpation & inspection: normal inspection of the chest Resp: Other: L Chest tube Auscultation: diminished lung sounds Cardio: Jugular venous distension: no JVD Rate: regular rate and tachycardic Rhythm: regular rhythm Peripheral pulses: Peripheral pulses 2+ throughout GI: Inspection: Yes normal to inspection Palpation (GI): Soft to palpation and nontender Auscultation: normal bowel sounds Back/Spine/Pelvis: Thoracic/Lumbar Spine: thoracic and lumbar spine normal to inspection Skin: General skin exam: no rashes or lesions noted Neuro: Other: diffusely weak General: patient oriented x3, moves all extremities, normal sensation to monofilament and Unable to assess gait Cranial nerves: Yes Equal, round and reactive pupils present Cognition (Neuro): normal cognition Speech: No Abnormal speech present Gait exam (Neuro): Unable to assess gait Motor exam (neuro): 5/5 motor strength present throughout Extrem: Other: General: Yes normal to inspection, Yes no pedal edema and Yes no calf tenderness Objective Data Labs CBC & Chem 7: 04/14/21 08:29 04/12/21 05:36 Labs: Laboratory Results - last 24 hr 04/07/21 04/14/21 08:12 08:29 WBC 11.5 H RBC 2.74 L Hgb 7.8 L Hct 23.8 L MCV 86.9 MCH 28.5 MCHC 32.8 RDW 17.0 H Plt Count 199 MPV 8.8 L Absolute Nucleated RBC 0.000 Nucleated RBC % (auto) 0.0 Hep C Viral Load <15 NOT DETECTED Hep C Viral Load Log <1.18 NOT DETECTED Microbiology Microbiology Results: Microbiology 04/08/21 16:00 Pleural Fluid Gram Stain - Final 04/08/21 16:00 Pleural Fluid Routine Culture - Final No growth after 2 days 04/08/21 16:00 Pleural Fluid Anaerobic Culture - Final NO GROWTH AFTER 5 DAYS 04/07/21 08:23 Blood - Venous Blood Culture - Final No growth after 5 days. 04/07/21 08:12 Blood - Venous Blood Culture - Final No growth after 5 days. 03/31/21 21:53 Blood - Venous Blood Culture - Final Staphylococcus aureus Strep dysgalactiae ssp equisim 03/31/21 21:53 Blood - Venous Blood Culture - Final Staphylococcus aureus Strep dysgalactiae ssp equisim 04/01/21 Unknown Urine clean catch - Urine fox top Urine Culture - Final Procedures Date of Service Date of Service: 04/14/21 Assessment & Plan Assessment and plan (1) MELITON (acute kidney injury): Start date: 04/14/21 Start time: 10:05 Status: Acute Assessment and Plan: 1. MELITON: peak SCr 2.5 and now 1.24 c/w recoery from ATN; prior w/u raised concern for GN gievn decr C3/C4 but less concerning now with decr Scr; hold off on kidney Bx 2. HypoNa: mild ( last SNa 129) multifact; que SIADH related to ongoing pain and lug invovlement REC: repeat renal labs in am; avoid Ntoxins ( no NSAIDS please); track SNA and avoid exess PO fluids ( restrict to 1500) Will follow with team Time Spent With Patient Time: Total time spent is greater than 50% in coordination of care (as documented) at patient's floor/unit and/or counseling patient: Progress Note: Quality Stroke Does the patient have a stroke diagnosis?: No
[2021-04-15] VITALS (8 sets, daily range): BP systolic 104–148; BP diastolic 44–58; PULSE 86–111; RESP 17–22; TEMP 36.4–38.4; O2SAT 93–99
[2021-04-15] MEDS: Acetaminophen 325 MG TABLET 650 MG PO ×3 (03:21→19:50)
[2021-04-15] MEDS: ceFAZolin Sodium/Dextrose,Iso 2 GM/50 ML PIGGYBACK IV ×2 (03:22→23:59)
--- NOTE | 2021-04-15 04:28 | PC.NURSE ---
at 1950 pt had an oral temp of 102.9, tylenol given and temp reduced to 99.3. at 314 pt had an oral temp of 101.1, tylenol given and temp reduced to 99.6.
[2021-04-15 06:09] LABS: Anion Gap 9 (12-20); Blood Urea Nitrogen 14 mg/dL (9-16); Carbon Dioxide 25 mmol/L (22-29); Chloride 101 mmol/L (96-108); Creatinine Clr Calc Pharmacy 51.9; Estimated Glomerular Filt Rate 52; Potassium 4.2 mmol/L (3.3-5.1); Sodium 131 mmol/L (135-145)
[2021-04-15] MEDS: guaiFENesin DM 200/20/10 ML 10 ML SYRUP PO ×4 (08:03→19:50)
[2021-04-15] MEDS: methADONE HCl 20 MG/2 ML ORAL.CONC 55 MG PO (08:03)
[2021-04-15] MEDS: 0.9 % Sodium Chloride Flush 3 ML SYRINGE IVFLUSH ×3 (08:04→19:50)
[2021-04-15] MEDS: oxyCODONE HCl Immed Release 5 MG TABLET PO ×3 (08:05→16:52)
[2021-04-15] MEDS: hydrOXYzine HCL 25 MG TABLET PO ×2 (12:20→19:50)
--- NOTE | 2021-04-15 12:45 | MHC.CM.PN ---
PATIENT STILL REFUSES PLACEMENT NO PICC PER CONVERSATION WITH MD, PATIENT IS FEBRILE TODAY. CASE MANAGEMENT CONTINUING TO FOLLOW
--- NOTE | 2021-04-15 16:00 | MHC.RECOVRN ---
Check in with pt. Pt awake, alert, engaged in conversation. Knitting in recliner. Denies withdrawal symptoms, reports current methadone dose is adequate. Pt reporting left sided pain has improved. Pt reports desire for right side chest tube, pt states I've decided to do it. Pt reports that walking to the bathroom without O2 is becoming more difficult which is why pt has decided to move forward. Will continue to follow.
--- NOTE | 2021-04-15 16:03 | MHC.CLN ---
F/U DIET ADVANCED TO REGULAR. ADDING ENSURE TID TO PROVIDE ADDITIONAL 1050 KCAL, 39 G PROTEIN. VARIABLE INTAKE.
--- NOTE | 2021-04-15 16:17 | P.PNIM_ITS ---
Subjective Subjective Date of Service: 04/15/21 Interval History: Offers no acute complaints, feels tired, noted to have high grade fevers overnight, denies fever chills at present, persistent productive cough, no abdominal pain, no diarrhea, no nausea, no vomiting. Review of Systems Review of Systems: Yes all other systems are reviewed and are negative Physical Exam Vital Signs: Vital Signs: Last Vital Signs Temp 98.4 F 04/15/21 11:11 Pulse 92 04/15/21 11:11 Resp 17 04/15/21 11:11 BP 104/47 L 04/15/21 11:11 Pulse Ox 96 04/15/21 11:11 BMI result Body Mass Index 24.2 Gen:? Awake alert,?no acute distress Neck: supple, no JVD Lungs: diminished bilateral bases,b/l nspiratory crackles, L chest tube to suction with serosanguinous drainage Heart: regular rate and rhythm Abd: soft, non-tender, non-distended Ext: no edema Skin: warm/well-perfused, R forearm ulcer with raised margins without drainage Neuro: alert and oriented x3, no focal findings Musculoskeletal no deformity Objective Data Active Medications Acetaminophen (Acetaminophen 325 Mg Tablet) 650 mg PO Q6H PRN PRN Reason: Fever Last Admin: 04/15/21 12:20 Dose: 650 mg Documented by: NICOLA Benzonatate (Benzonatate 100 Mg Capsule) 100 mg PO TID PRN PRN Reason: Cough Last Admin: 04/14/21 19:52 Dose: 100 mg Documented by: TON Guaifenesin/Dextromethorphan (Guaifenesin Dm 200/20/10 Ml 10 Ml Syrup) 10 ml PO QID [facility] Last Admin: 04/15/21 12:20 Dose: 10 ml Documented by: NICOLA Hydroxyzine HCl (Hydroxyzine Hcl 25 Mg Tablet) 25 mg PO Q6H PRN PRN Reason: Anxiety Last Admin: 04/15/21 12:20 Dose: 25 mg Documented by: NICOLA Melatonin (Melatonin 3 Mg Tablet) 6 mg PO BEDTIME PRN PRN Reason: Insomnia Last Admin: 04/14/21 19:51 Dose: 6 mg Documented by: TON Methadone HCl (Methadone Hcl 20 Mg/2 Ml Oral.Conc) 55 mg PO DAILY [facility] Last Admin: 04/15/21 08:03 Dose: 55 mg Documented by: ELIZABETH Nicotine Polacrilex (Nicotine Polacrilex 2 Mg Gum) 2 mg BUCCAL Q2H PRN PRN Reason: Nicotine Cravings Last Admin: 04/04/21 05:47 Dose: 2 mg Documented by: ODRISM Oxycodone HCl (Oxycodone Hcl Immed Release 5 Mg Tablet) 5 mg PO Q4H PRN PRN Reason: Pain, Moderate (Pain Scale 4-6 Last Admin: 04/15/21 12:20 Dose: 5 mg Documented by: NICOLA Pharmacy Consult (Consult Rx Perform Med Rec) 1 each MISCELLANE ONCE PRN PRN Reason: Consult order Senna (Sennosides 8.6 Mg Tablet) 17.2 mg PO BEDTIME PRN PRN Reason: Constipation Sodium Chloride (0.9 % Sodium Chloride Flush 3 Ml Syringe) 3 ml IVFLUSH QSHIFT [facility] Last Admin: 04/15/21 08:04 Dose: 3 ml Documented by: ELIZABETH Labs CBC & Chem 7: 04/14/21 08:29 04/15/21 05:16 Labs: Laboratory Results - last 24 hr 04/15/21 05:16 Anion Gap 9 L Estim Creat Clear Calc 51.9 Estimated GFR 52 Assessment and Plan (1) Pleural effusion: Status: Acute (2) Septic embolism: Status: Acute (3) Infective endocarditis: Status: Acute (4) Cocaine use disorder, severe, dependence: Status: Acute (5) Opioid use disorder, severe, dependence: Status: Acute (6) Acute respiratory failure with hypoxia: Status: Acute (7) Transaminitis: Status: Acute Assessment and Plan: 25yo F with history of IV heroin + cocaine abuse, recent RUE cellulitis with open wound,p/w SOB and admitted for severe sepsis found to be bacteremic with TV endocarditis complicated by cavitary septic emboli + bilateral loculated pleural effusions # severe sepsis/ MSSA + Streptococcus dysgalactiae bacteremia/infective endocarditis [2.77 x 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] multifocal pneumo damian with cavitary septic emboli - WBC and lactate normalized, got 7d of vancomycin- changed to cefazolin 2g IV q8h 04/08/21, on day #, repeat blood culture 04/07 clear. Will continue above treatment with IV antibiotics supportive care Breakthrough fevers were discussed with ID regarding current antibiotic choice and duration Patient seen by psych and found to have capacity to make decision Patient has good understanding that if she stop IV antibiotics and refuse care including chest tube placement and thoracocentesis she will have sub optimal level of care and has high risk for sepsis persistent ongoing and Spread of infection and eventual . ? # loculated B pleural effusions/# small L pneumothorax ? Chest x-ray this a.m. showed no change in bilateral airspace opacities and cavity formation throughout lungs tiny left lateral pneumothorax unchanged and moderate right pleural effusion unchanged ? Thoracic following, had 3d of chemical decortication with intrapleural tPA 04/10-04/12 with decrease in pleural effusion; spoke with thoracic surgery PA plan is for chest tube to be removed today ? pleural fluid exudative, culture-negative but had already been on ABX for s everal days ? Patient refused right-sided chest tube placement and thoracocentesis. # anemia of chronic inflammation - tranfused 3u pRBCs 04/03/21 + 2u pRBCs 04/07/21; 1 unit packed RBC on 04/13 repeat hematocrit stable # coagulopathy - vit K 10 mg PO given; INR 1.6 # acute hypoxic respiratory failure - oxygenation stable on 2 L, wean O2 as tolerated # thrombocytopenia - likely due to sepsis + HCV, resolved # MAT-associated wound - wound care # back pain - no focal neurologic signs, pt declines MRI of spine, continue to monitor -> improved - oxycodone + morphine prn # MELITON - SCr normalized, avoid nephrotoxins + continue to monitor # hypoNa - mild, 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, sodium remained stable between 127-129 # transaminasemia - resolved, likely due to sepsis # HCV - Ab positive, viral load not detected, HBV immune; HIV negative # opioid use disorder - continue methadone 55 mg/d; Addiction Medicine following closely # cocaine abuse - prn hydroxyzine, CARE Team # tobacco abuse - NRT # protein-calorie malnutrition - Ensure supplementation # VTE ppx - SCDs # dispo ?? Wishes to be discharged home declined a rehab facility, aware of consequences of going home being followed by care team/status post psych eval Quality Stroke Does the patient have a stroke diagnosis?: No VTE Prior VTE?: No VTE Risk Level:: Medical - moderate - high VTE Device Contraindication: Treatment Not Indicated VTE Drug Contraindication: N/A - Med Ordered
--- NOTE | 2021-04-15 17:29 | P.PNIM_ITS ---
Progress Note: A&P (1) Pleural effusion: Status: Acute Assessment and Plan: 25 year old female with IVDA (heroin, cocaine) admitted to [facility] with severe sepsis with anemia and coagulopathy treated with PRBc and vitamin K, bacteremia, tricuspid valve endocarditis, septic pulmonary emboli, bilateral pleural effusion, thrombocytopenia, and hyponatremia. +HCV ab. Loculated left pleural effusion * s/p IR pigtail catheter placement on 04/08/21. * Morning chest x-ray reveals improvement of left-sided pleural effusion s/p tPA administration x 3 days. * Morning chest x-ray also reveals small right-sided pleural effusion will place order for right-sided pigtail catheter be performed by Interventional Radiology along with pleural fluid studies which is scheduled for this afternoon. * left-sided pigtail catheter was removed without incident a dry occlusive dressing put in place after chest tube output had yielded only 50 cc of serosanguineous fluid output overnight while on water seal. Prior to chest tube removal there is no detectable chest tube air leak. Right pleural effusion * Continues to have a moderate right-sided pleural effusion. * Will plan for right-sided pigtail catheter placement be performed by Interventional Radiology. Which is already ordered Case discussed with Dr. Newton. (2) Infective endocarditis: Status: Acute (3) Septic embolism: Status: Acute (4) Cocaine use disorder, severe, dependence: Status: Acute (5) Opioid use disorder, severe, dependence: Status: Acute (6) Bacteremia: Status: Acute (7) Acute hyponatremia: Status: Acute (8) MELITON (acute kidney injury): Status: Acute (9) Pneumonia: Status: Acute (10) Thrombocytopenia: Status: Acute Subjective Subjective Date of Service: 04/15/21 Interval History: There have been several times to get patient to agree to right-sided pigtail catheter placement performed by Interventional Radiology however patient has refused multiple times upon being sent to Interventional Radiology including refusing a PICC line. Patient now states that she feels a pressure along the right side of her chest and some discomfort and is now agreeable to having a right-sided pigtail catheter placed. Constitutional Constitutional: Reports as per HPI, Reports no additional constitutional complaints, Reports body ache(s), Denies chills, Denies fever(s), Denies headache(s), Reports lethargy, Denies malaise and Reports weakness Eyes Eyes: Reports no additional eye complaints, Denies change in vision and Denies diplopia ENT Ears, Nose, Mouth, and Throat: Reports system reviewed and no additional complaints, except as documented, Denies dysphagia, Denies vertigo, Denies dizziness, Denies headache(s), Denies nasal congestion, Denies nasal discharge, Denies neck pain, Denies sore throat and Denies throat swelling Cardiovascular Cardiovascular: Reports no additional cardiovascular complaints, Denies chest pain, Denies syncope, Denies leg edema, Denies lightheadedness and Reports dyspnea Respiratory Respiratory: Reports as per HPI, Reports no additional respiratory complaints, Reports cough and Reports dyspnea Gastrointestinal Gastrointestinal: Reports no additional gastrointestinal complaints, Denies abdominal pain, Denies dysphagia, Denies diarrhea, Denies nausea and Denies vomiting Musculoskeletal Musculoskeletal: Reports no additional musculoskeletal complaints, Denies back pain, Denies arthralgias, Denies joint swelling, Denies neck pain, Denies numbness and Denies tingling Integumentary/Breasts Skin/Breast: Reports no additional skin complaints and Denies rash Neurologic Neurologic: Reports system reviewed and no additional complaints, except as documented, Denies Abnormal speech present, Denies vertigo, Denies dizziness, Denies syncope, Denies headache(s), Denies numbness, Denies tingling and Reports weakness Allergic/Immunologic Allergic/Immunologic: Denies throat swelling Physical Exam Vital Signs: Vital Signs: Last Vital Signs Temp 100.6 F H 04/15/21 16:00 Pulse 102 H 04/15/21 16:00 Resp 22 H 04/15/21 16:00 BP 123/56 L 04/15/21 16:00 Pulse Ox 93 04/15/21 16:00 BMI result Body Mass Index 24.2 Const: General: cooperative and awake Nutritional Appearance: well nourished and overweight Orientation/consciousness: oriented to person, oriented to place, oriented to time and patient oriented x3 HENMT: Head: Yes atraumatic Mouth: other (Dry, crackled lips) Eyes: Periorbital: periorbital findings normal Conjunctivae: conjunctivae normal Sclerae: sclerae normal Pupils: Pupil accommodation reflex normal Neck: Neck: Yes full ROM, Yes no lymphadenopathy, Yes trachea midline, No lymphadenopathy, No tender and Yes no JVD Lymphatic: no lymphadenopathy noted Resp: Effort & Inspection: normal respiratory effort, able to speak in complete sentences, normal respiratory pattern, no audible wheezes, no cough, no stridor, not tachypneic and other (Patient speaking in full sentences on room air. Chest tube to *waterseal/landa) Auscultation: crackles (bilateral bases, dim to right lung base) Cardio: Palpation: normal PMI Heart sounds: S1 normal heart sound present, S2 normal heart sound present, no click, no gallops, no murmurs and no rubs Peripheral pulses: Peripheral pulses 2+ throughout Back/Spine/Pelvis: Thoracic/Lumbar Spine: thoracic and lumbar spine normal to inspection Skin: Lesions: no lesions Rashes: no rashes Neuro: General: oriented to person, oriented to place, oriented to time, patient oriented x3, gait normal and Unable to assess gait Speech: No Abnormal speech present Gait exam (Neuro): Unable to assess gait Extrem: General: Yes capillary refill normal, Yes no clubbing, cyanosis or edema and Yes no calf tenderness Psych: Appearance: grossly normal and well kempt Mental Status: mental status grossly normal Speech and movement: Normal speech and movement present and Clear speech present Affect: normal affect Attitude: cooperative Thought process: Normal thought process present Thought content: Normal thought content present Objective Data Current Medications Acetaminophen (Acetaminophen 325 Mg Tablet) 650 mg PO Q6H PRN PRN Reason: Fever Last Admin: 04/15/21 12:20 Dose: 650 mg Documented by: Benzonatate (Benzonatate 100 Mg Capsule) 100 mg PO TID PRN PRN Reason: Cough Last Admin: 04/14/21 19:52 Dose: 100 mg Documented by: Guaifenesin/Dextromethorphan (Guaifenesin Dm 200/20/10 Ml 10 Ml Syrup) 10 ml PO QID [facility] Last Admin: 04/15/21 16:49 Dose: 10 ml Documented by: Hydroxyzine HCl (Hydroxyzine Hcl 25 Mg Tablet) 25 mg PO Q6H PRN PRN Reason: Anxiety Last Admin: 04/15/21 12:20 Dose: 25 mg Documented by: Melatonin (Melatonin 3 Mg Tablet) 6 mg PO BEDTIME PRN PRN Reason: Insomnia Last Admin: 04/14/21 19:51 Dose: 6 mg Documented by: Methadone HCl (Methadone Hcl 20 Mg/2 Ml Oral.Conc) 55 mg PO DAILY [facility] Last Admin: 04/15/21 08:03 Dose: 55 mg Documented by: Nicotine Polacrilex (Nicotine Polacrilex 2 Mg Gum) 2 mg BUCCAL Q2H PRN PRN Reason: Nicotine Cravings Last Admin: 04/04/21 05:47 Dose: 2 mg Documented by: Oxycodone HCl (Oxycodone Hcl Immed Release 5 Mg Tablet) 5 mg PO Q4H PRN PRN Reason: Pain, Moderate (Pain Scale 4-6 Last Admin: 04/15/21 16:52 Dose: 5 mg Documented by: Pharmacy Consult (Consult Rx Perform Med Rec) 1 each MISCELLANE ONCE PRN PRN Reason: Consult order Senna (Sennosides 8.6 Mg Tablet) 17.2 mg PO BEDTIME PRN PRN Reason: Constipation Sodium Chloride (0.9 % Sodium Chloride Flush 3 Ml Syringe) 3 ml IVFLUSH QSHIFT [facility] Last Admin: 04/15/21 16:49 Dose: 3 ml Documented by: Labs CBC & Chem 7: 04/14/21 08:29 04/15/21 05:16 Labs: Laboratory Results - last 24 hr 04/15/21 05:16 Anion Gap 9 L Estim Creat Clear Calc 51.9 Estimated GFR 52 Microbiology Microbiology Results: Microbiology 04/08/21 16:00 Pleural Fluid Gram Stain - Final 04/08/21 16:00 Pleural Fluid Routine Culture - Final No growth after 2 days 04/08/21 16:00 Pleural Fluid Anaerobic Culture - Final NO GROWTH AFTER 5 DAYS 04/07/21 08:23 Blood - Venous Blood Culture - Final No growth after 5 days. 04/07/21 08:12 Blood - Venous Blood Culture - Final No growth after 5 days. 03/31/21 21:53 Blood - Venous Blood Culture - Final Staphylococcus aureus Strep dysgalactiae ssp equisim 03/31/21 21:53 Blood - Venous Blood Culture - Final Staphylococcus aureus Strep dysgalactiae ssp equisim 04/01/21 Unknown Urine clean catch - Urine fxo top Urine Culture - Final Quality Stroke Does the patient have a stroke diagnosis?: No VTE Prior VTE?: No VTE Risk Level:: Medical - moderate - high VTE Device Contraindication: Treatment Not Indicated VTE Drug Contraindication: N/A - Med Ordered
[2021-04-15] MEDS: Melatonin 3 MG TABLET 6 MG PO (19:50)
[2021-04-15] MEDS: Benzonatate 100 MG CAPSULE PO (19:50)
[2021-04-16 04:00] VITALS: BP 122/56; PULSE 101; RESP 17; TEMP 37.1; O2SAT 96
[2021-04-16] MEDS: oxyCODONE HCl Immed Release 5 MG TABLET PO ×2 (05:14→17:45)
[2021-04-16] MEDS: Benzonatate 100 MG CAPSULE PO ×2 (05:15→22:11)
[2021-04-16] MEDS: Acetaminophen 325 MG TABLET 650 MG PO ×2 (05:15→17:44)
[2021-04-16 07:27] LABS: pH Pleural Fluid 7.8
[2021-04-16 07:29] LABS: Total Protein Pleural Fluid 4.4
[2021-04-16 07:46] VITALS: BP 120/56; PULSE 105; RESP 20; TEMP 36.8; O2SAT 94
[2021-04-16] MEDS: methADONE HCl 20 MG/2 ML ORAL.CONC 55 MG PO (08:38)
[2021-04-16] MEDS: guaiFENesin DM 200/20/10 ML 10 ML SYRUP PO ×3 (08:38→22:11)
[2021-04-16] MEDS: ceFAZolin Sodium/Dextrose,Iso 2 GM/50 ML PIGGYBACK IV ×3 (08:38→23:14)
[2021-04-16] MEDS: 0.9 % Sodium Chloride Flush 3 ML SYRINGE IVFLUSH ×3 (08:39→23:15)
--- NOTE | 2021-04-16 10:15 | HO.PM.IMPN ---
Subjective Subjective Date of Service: 04/16/21 Interval History: Feeling better, coughing bringing rodriguez colored thick phlegm with less blood, willing to undergo right chest tube placement, continue to complain of pain, complaining of fever chills at night, no nausea, no vomiting, ambulating to bathroom , get short of breath with ambulation. Review of Systems Review of Systems: Yes all other systems are reviewed and are negative Physical Exam Vital Signs: Vital Signs: Last Vital Signs Temp 98.2 F 04/16/21 07:46 Pulse 105 H 04/16/21 07:46 Resp 20 04/16/21 07:46 BP 120/56 L 04/16/21 07:46 Pulse Ox 94 04/16/21 07:46 BMI result Body Mass Index 24.2 Gen:? Awake alert, ?no acute distress Neck: supple, no JVD Lungs: Bilate ral rhonchi, no re spiratory distress Heart: regular ra te and rhythm Abd: soft, non-tender, non-distended Ext : no edema Skin: w arm/well-perfused, R forearm ulcer w ith raised margins without drainage Neuro: alert and o riented x3, no foc al findings Muscul oskeletal no defor mity Objective Data Active Medications Acetaminophen (Acetaminophen 325 Mg Tablet) 650 mg PO Q6H PRN PRN Reason: Fever Last Admin: 04/16/21 05:15 Dose: 650 mg Documented by: TON Benzonatate (Benzonatate 100 Mg Capsule) 100 mg PO TID PRN PRN Reason: Cough Last Admin: 04/16/21 05:15 Dose: 100 mg Documented by: TON Guaifenesin/Dextromethorphan (Guaifenesin Dm 200/20/10 Ml 10 Ml Syrup) 10 ml PO QID [facility] Last Admin: 04/16/21 08:38 Dose: 10 ml Documented by: ELIZABETH Hydroxyzine HCl (Hydroxyzine Hcl 25 Mg Tablet) 25 mg PO Q6H PRN PRN Reason: Anxiety Last Admin: 04/15/21 19:50 Dose: 25 mg Documented by: TON Cefazolin Sodium/Dextrose (Ancef) 2 gm in 50 mls @ 100 mls/hr IV Q8H [facility] Last Infusion: 04/16/21 09:30 Dose: 0 mls/hr Documented by: ELIZABETH Melatonin (Melatonin 3 Mg Tablet) 6 mg PO BEDTIME PRN PRN Reason: Insomnia Last Admin: 04/15/21 19:50 Dose: 6 mg Documented by: TON Methadone HCl (Methadone Hcl 20 Mg/2 Ml Oral.Conc) 55 mg PO DAILY [facility] Last Admin: 04/16/21 08:38 Dose: 55 mg Documented by: ELIZABETH Nicotine Polacrilex (Nicotine Polacrilex 2 Mg Gum) 2 mg BUCCAL Q2H PRN PRN Reason: Nicotine Cravings Last Admin: 04/04/21 05:47 Dose: 2 mg Documented by: ODRISM Oxycodone HCl (Oxycodone Hcl Immed Release 5 Mg Tablet) 5 mg PO Q4H PRN PRN Reason: Pain, Moderate (Pain Scale 4-6 Last Admin: 04/16/21 05:14 Dose: 5 mg Documented by: TON Pharmacy Consult (Consult Rx Perform Med Rec) 1 each MISCELLANE ONCE PRN PRN Reason: Consult order Senna (Sennosides 8.6 Mg Tablet) 17.2 mg PO BEDTIME PRN PRN Reason: Constipation Sodium Chloride (0.9 % Sodium Chloride Flush 3 Ml Syringe) 3 ml IVFLUSH QSHIFT [facility] Last Admin: 04/16/21 08:39 Dose: 3 ml Documented by: ELIZABETH Labs CBC & Chem 7: 04/14/21 08:29 04/15/21 05:16 Labs: Laboratory Results - last 24 hr 04/08/21 04/08/21 16:00 16:00 Pleural pH 7.8 Pleural Total Protein 4.4 Assessment and Plan (1) Pleural effusion: Status: Acute (2) Septic embolism: Status: Acute (3) Infective endocarditis: Status: Acute (4) Cocaine use disorder, severe, dependence: Status: Acute (5) Opioid use disorder, severe, dependence: Status: Acute (6) Acute respiratory failure with hypoxia: Status: Acute (7) Transaminitis: Status: Acute (8) Bacteremia: Status: Acute Assessment and Plan: 25yo F with history of IV heroin + cocaine abuse, recent RUE cellulitis with open wound,p/w SOB and admitted for severe sepsis found to be bacteremic with TV endocarditis complicated by cavitary septic emboli + bilateral loculated pleural effusions # severe sepsis/ MSSA + Streptococcus dysgalactiae bacteremia/infective endocarditis [2.77 x 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] multifocal pneumonia with cavitary septic emboli - WBC and lactate normalized, got 7d of vancomycin- changed to cefazolin 2g IV q8h 04/08/21, on day #, repeat blood culture 04/07 clear. ? Will continue above treatment with IV antibiotics supportive care ? Breakthrough fevers x 48 hrs will d/w ID regarding choice and duration of antibiotic ? Patient seen by psych and found to have capacity to make decision Declined chest tube placement x3 in last 1 week, now agreeable to chest tube placement/thorcocentesis, will request IR for procedure today ? Will discuss placement of PICC line prior to discharge plan ? # loculated B pleural effusions/# small L pneumothorax ? Chest x-ray showed no change in bilateral airspace opacities ,L chest tube removed on 04/15 by th surgery ? Thoracic following, had 3d of chemical decortication with intrapleural tPA 04/10-04/12 with decrease in pleural effusion ? pleural fluid exudative, culture-negative but had already been on ABX for several days Will attempt right thoracocentesis today ? # anemia of chronic inflammation - tranfused 3u pRBCs 04/03/21 + 2u pRBCs 04/07/21; 1 unit packed RBC on 04/13 repeat hematocrit stable # coagulopathy - s/p vit K , INR 1.6 # acute hypoxic respiratory failure - oxygenation stable on 2 L, wean O2 as tolerated # thrombocytopenia - likely due to sepsis + HCV, resolved # MAT-associated wound - wound care # back pain - no focal neurologic signs, pt declines MRI of spine, continue to monitor -> improved # MELITON - SCr normalized, avoid nephrotoxins + continue to monitor # hypoNa - mild, 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, sodium remained stable between 127-129 # transaminasemia - resolved, likely due to sepsis # HCV - Ab positive, viral load not detected, HBV immune; HIV negative # opioid use disorder - continue methadone 55 mg/d; Addiction Medicine following closely,prn oxycodone # cocaine abuse - prn hydroxyzine, CARE Team # tobacco abuse - NRT # protein-calorie malnutrition - Ensure supplementation # VTE ppx - SCDs # dispo will rediscuss discharge plan once medically stable for discharge to rehab ?? Quality Stroke Does the patient have a stroke diagnosis?: No VTE Prior VTE?: No VTE Risk Level:: Medical - moderate - high VTE Device Contraindication: Treatment Not Indicated VTE Drug Contraindication: N/A - Med Ordered
--- NOTE | 2021-04-16 10:33 | MHC.RECOVRN ---
Attempted to check in with pt. Pt asleep. Will continue to follow.
[2021-04-16 11:30] VITALS: BP 115/55; PULSE 80; RESP 18; TEMP 36.6; O2SAT 96
--- NOTE | 2021-04-16 14:07 | PC.NURSE ---
unable to insert an iv. poor access. left hand swollen and 20g leaking. md colon ordered a midline placement per radiology nurse ulises. performing procedure by the bedside bed 7. the patient to go to radiology for chest tube placement after mid-line placement.
--- NOTE | 2021-04-16 14:39 | PC.NURSE ---
RADIOLOGY NURSE BY STEPHANIE UNABLE TO INSERT A MIDLINE AND ATTEMPTED AT A ULTRASOUND GUIDED PERIPHERAL IV INSERTION WITH NO SUCCESS. RNS TO SPEAK TO MD GROVER FOR THE NEXT PLAN OF CARE.
--- NOTE | 2021-04-16 14:48 | PC.NURSE ---
PATIENT TO HAVE A CENTRAL LINE PLACED.
[2021-04-16 16:00] VITALS: BP 144/74; PULSE 119; RESP 19; TEMP 37.4; O2SAT 93
[2021-04-16 17:44] LABS: MN% 55.9 %; PMN% 44.1 %
[2021-04-16 17:47] LABS: RBC Pleural Fluid 0.327 X10*3/uL; WBC Pleural Fluid 2.427 X10*3/uL
[2021-04-16 17:50] LABS: BF Shift QC OK YES; Man Diluent Bkgrd OK YES
[2021-04-16 18:08] LABS: Lymphocytes Pleural Fluid 24 %; Monocytes Pleural Fluid 26 %; Neutrophils Pleural Fluid 48 %; Other Cells Plerual Fl 2 %
[2021-04-16 20:00] VITALS: BP 122/59; PULSE 98; RESP 19; TEMP 36.8; O2SAT 98
[2021-04-16] MEDS: hydrOXYzine HCL 25 MG TABLET PO (22:11)
[2021-04-16] MEDS: Melatonin 3 MG TABLET 6 MG PO (22:11)
[2021-04-17] VITALS: BP 159/72; PULSE 88; RESP 17; TEMP 36.3; O2SAT 98
[2021-04-17 04:00] VITALS: BP 118/61; PULSE 83; RESP 17; TEMP 36.1; O2SAT 96
[2021-04-17 07:22] LABS: LDH Pleural Fluid 451; Total Protein Pleural Fluid 4.2
[2021-04-17 07:23] LABS: Glucose Pleural Fluid 68
[2021-04-17] MEDS: methADONE HCl 20 MG/2 ML ORAL.CONC 55 MG PO (07:55)
[2021-04-17] MEDS: guaiFENesin DM 200/20/10 ML 10 ML SYRUP PO ×4 (07:56→20:01)
[2021-04-17] MEDS: ceFAZolin Sodium/Dextrose,Iso 2 GM/50 ML PIGGYBACK IV ×3 (07:56→23:43)
[2021-04-17] MEDS: 0.9 % Sodium Chloride Flush 3 ML SYRINGE IVFLUSH ×3 (07:58→23:45)
[2021-04-17 08:00] VITALS: BP 118/55; PULSE 85; RESP 20; TEMP 36.6; O2SAT 97
--- NOTE | 2021-04-17 09:36 | P.PNNP_ITS ---
Subjective Subjective Date of Service: 04/17/21 Interval history: seen and examined lethargic Physical Exam Vital Signs: Vital Signs: Last Vital Signs Temp 97.8 F 04/17/21 08:00 Pulse 85 04/17/21 08:00 Resp 20 04/17/21 08:00 BP 118/55 L 04/17/21 08:00 Pulse Ox 97 04/17/21 08:00 BMI result Body Mass Index 24.2 Const: General: no acute distress HENMT: Head: Yes normocephalic and Yes atraumatic Neck: Neck: Yes supple Resp: Auscultation: diminished lung sounds Cardio: Heart sounds: S1 normal heart sound present and S2 normal heart sound present GI: Palpation (GI): Soft to palpation and nontender Extrem: General: Yes edema Objective Data Labs CBC & Chem 7: 04/14/21 08:29 04/15/21 05:16 Labs: Laboratory Results - last 24 hr 04/16/21 04/16/21 16:53 16:53 Pleural WBC 2.427 Pleural RBC 0.327 Pleural Neutrophils 48 Pleural Lymphocytes 24 Pleural Monocytes 26 Pleural Other Cells 2 Pleural Total Protein 4.2 Pleural LDH 451 Pleural Glucose 68 Microbiology Microbiology Results: Microbiology 04/16/21 16:53 Pleural Fluid Gram Stain - Final 04/16/21 16:53 Pleural Fluid Routine Culture - Preliminary No growth to date. 04/16/21 16:53 Pleural Fluid Anaerobic Culture - Preliminary No growth to date. 04/08/21 16:00 Pleural Fluid Gram Stain - Final 04/08/21 16:00 Pleural Fluid Routine Culture - Final No growth after 2 days 04/08/21 16:00 Pleural Fluid Anaerobic Culture - Final NO GROWTH AFTER 5 DAYS 04/07/21 08:23 Blood - Venous Blood Culture - Final No growth after 5 days. 04/07/21 08:12 Blood - Venous Blood Culture - Final No growth after 5 days. 03/31/21 21:53 Blood - Venous Blood Culture - Final Staphylococcus aureus Strep dysgalactiae ssp equisim 03/31/21 21:53 Blood - Venous Blood Culture - Final Staphylococcus aureus Strep dysgalactiae ssp equisim 04/01/21 Unknown Urine clean catch - Urine fox top Urine Culture - Final Procedures Date of Service Date of Service: 04/17/21 Assessment & Plan Assessment and plan (1) MELITON (acute kidney injury): Status: Acute (2) Hyponatremia: Status: Acute Assessment and Plan: Scr better MELITON due to renal hypoperfusion and tubular stress prolonged tubular stress causing ATN low c3 and c4 but kidney function overall better (peak SCr 2.5 mg/dl) hyponatremia c/w SIADH related to ongoing pain and lung involvement REC restrict free water intake hold off kidney biopsy follow kidney function and electrolytes Time Spent With Patient Time: Total time spent is greater than 50% in coordination of care (as d ocumented) at patient's floor/unit and/or counseling patient: Progress Note: Quality Stroke Does the patient have a stroke diagnosis?: No
--- NOTE | 2021-04-17 10:47 | P.PNIM_ITS ---
Subjective Subjective Date of Service: 04/17/21 Interval History: Feeling better this morning, less shortness of breath, less cough, no fever chills overnight, persistent pain not worsening. No other acute issues overnight. Review of Systems Review of Systems: Yes all other systems are reviewed and are negative Physical Exam Vital Signs: Vital Signs: Last Vital Signs Temp 97.8 F 04/17/21 08:00 Pulse 85 04/17/21 08:00 Resp 20 04/17/21 08:00 BP 118/55 L 04/17/21 08:00 Pulse Ox 97 04/17/21 08:00 BMI result Body Mass Index 24.2 Gen:? Awake alert,?no acute distress Neck: supple, no JVD Lungs: Good air entry, bilateral rhonchi, no respiratory distress, chest tube to suction with serosanguinous drainage Heart: regular rate and rhythm Abd: soft, non-tender, non-distended Ext: no edema Skin: warm/well-perfused, R forearm ulcer with raised margins dressing in place Neuro: alert and oriented x3, Musculoskeletal no deformity Psych appropriate affect Objective Data Active Medications Acetaminophen (Acetaminophen 325 Mg Tablet) 650 mg PO Q6H PRN PRN Reason: Fever Last Admin: 04/16/21 17:44 Dose: 650 mg Documented by: ELIZABETH Benzonatate (Benzonatate 100 Mg Capsule) 100 mg PO TID PRN PRN Reason: Cough Last Admin: 04/16/21 22:11 Dose: 100 mg Documented by: TON Guaifenesin/Dextromethorphan (Guaifenesin Dm 200/20/10 Ml 10 Ml Syrup) 10 ml PO QID [facility] Last Admin: 04/17/21 07:56 Dose: 10 ml Documented by: ELIZABETH Hydroxyzine HCl (Hydroxyzine Hcl 25 Mg Tablet) 25 mg PO Q6H PRN PRN Reason: Anxiety Last Admin: 04/16/21 22:11 Dose: 25 mg Documented by: TON Cefazolin Sodium/Dextrose (Ancef) 2 gm in 50 mls @ 100 mls/hr IV Q8H [facility] Last Infusion: 04/17/21 08:36 Dose: 0 mls/hr Documented by: ELIZABETH Melatonin (Melatonin 3 Mg Tablet) 6 mg PO BEDTIME PRN PRN Reason: Insomnia Last Admin: 04/16/21 22:11 Dose: 6 mg Documented by: NANCYQC Methadone HCl (Methadone Hcl 20 Mg/2 Ml Oral.Conc) 55 mg PO DAILY [facility] Last Admin: 04/17/21 07:55 Dose: 55 mg Documented by: ELIZABETH Nicotine Polacrilex (Nicotine Polacrilex 2 Mg Gum) 2 mg BUCCAL Q2H PRN PRN Reason: Nicotine Cravings Last Admin: 04/04/21 05:47 Dose: 2 mg Documented by: ODRISM Oxycodone HCl (Oxycodone Hcl Immed Release 5 Mg Tablet) 5 mg PO Q4H PRN PRN Reason: Pain, Moderate (Pain Scale 4-6 Last Admin: 04/16/21 17:45 Dose: 5 mg Documented by: ELIZABETH Pharmacy Consult (Consult Rx Perform Med Rec) 1 each MISCELLANE ONCE PRN PRN Reason: Consult order Senna (Sennosides 8.6 Mg Tablet) 17.2 mg PO BEDTIME PRN PRN Reason: Constipation Sodium Chloride (0.9 % Sodium Chloride Flush 3 Ml Syringe) 3 ml IVFLUSH QSHIFT [facility] Last Admin: 04/17/21 07:58 Dose: 3 ml Documented by: ELIZABETH Labs CBC & Chem 7: 04/14/21 08:29 04/15/21 05:16 Labs: Laboratory Results - last 24 hr 04/16/21 04/16/21 16:53 16:53 Pleural WBC 2.427 Pleural RBC 0.327 Pleural Neutrophils 48 Pleural Lymphocytes 24 Pleural Monocytes 26 Pleural Other Cells 2 Pleural Total Protein 4.2 Pleural LDH 451 Pleural Glucose 68 Microbiology Microbiology Results: Microbiology 04/16/21 16:53 Gram Stain - Final Pleural Fluid Routine Culture - Preliminary No growth to date. Anaerobic Culture - Preliminary No growth to date. Assessment and Plan (1) Hyponatremia: Status: Acute (2) Pleural effusion: Status: Acute (3) Septic embolism: Status: Acute (4) Infective endocarditis: Status: Acute (5) Cocaine use disorder, severe, dependence: Status: Acute (6) Opioid use disorder, severe, dependence: Status: Acute (7) Acute respiratory failure with hypoxia: Status: Acute Assessment and Plan: 25yo F with history of IV heroin + cocaine abuse, recent RUE cellulitis with open wound,p/w SOB and admitted for severe sepsis found to be bacteremic with TV endocarditis complicated by cavitary septic emboli + bilateral loculated pleural effusions # severe sepsis/ MSSA + Streptococcus dysgalactiae bacteremia/infective endocarditis [2.77 x 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] multifocal pneu monia with cavitary septic emboli No fevers in last 24 hours, overall feeling better with less shortness of breath and cough WBC and lactate normalized, got 7d of vancomycin- changed to cefazolin 2g IV q8h 04/08/21, on day #, repeat blood culture 04/07 clear. Continue current treatment right IJ catheter placed by IR due to no IV access. ? # loculated B pleural effusions/# small L pneumothorax ? Right chest tube placed yesterday by IR, 200 mL of fluid removed, right chest tube with serosanguineous drainage, repeat chest x-ray pending status post 3d of chemical decortication with intrapleural tPA 04/10-04/12 with decrease in pleural effusion left side, chest tube pulled on 04/15 ? pleural fluid exudative, culture-negative but had already been on ABX for several days. ? # anemia of chronic inflammation - tranfused 3u pRBCs 04/03/21 + 2u pRBCs 04/07/21; 1 unit packed RBC on 04/13 repeat hematocrit stable # coagulopathy - vit K 10 mg PO given; INR 1.6 # acute hypoxic respiratory failure - oxygenation stable on 2 L, wean O2 as tolerated # thrombocytopenia - likely due to sepsis + HCV, resolved # MAT-associated wound - wound care # back pain - no focal neurologic signs, pt declines MRI of spine, continue to monitor -> improved - oxycodone + morphine prn # MELITON - SCr normalized, avoid nephrotoxins + continue to monitor # hypoNa - mild, 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, sodium remained stable between 127-129 # transaminasemia - resolved, likely due to sepsis # HCV - Ab positive, viral load not detected, HBV immune; HIV negative # opioid use disorder - continue methadone 55 mg/d; Addiction Medicine following closely # cocaine abuse - prn hydroxyzine, CARE Team # tobacco abuse - NRT # protein-calorie malnutrition - Ensure supplementation # VTE ppx - SCDs # dispo declined rehab facility earlier will reassess discharge plan once medical ready for discharge, patient seen by psych and is competent to make decisions. ?? Quality Stroke Does the patient have a stroke diagnosis?: No VTE Prior VTE?: No VTE Risk Level:: Medical - moderate - high VTE Device Contraindication: Treatment Not Indicated VTE Drug Contraindication: N/A - Med Ordered
[2021-04-17 12:00] VITALS: BP 114/60; PULSE 89; RESP 20; TEMP 36.6; O2SAT 96
--- NOTE | 2021-04-17 13:42 | PM.PNGS ---
Subjective Subjective Date of Service: 04/17/21 Interval history: patient was seen examined this afternoon. Patient underwent a right-sided chest tube placement with small bore pigtail catheter yesterday for her right-sided pleural effusion. Patient does state that she has noticed her breathing slightly improved however does have some discomfort surrounding chest tube site. Her chest tube remained on water-seal overnight and was placed today to -20 suction after chest x-ray revealing small right-sided lateral pneumothorax likely trapped lung where pleural fluid previously resided. Her chest tube put out approximately 450 cc of serosanguineous fluid since chest tube insertion with approximately 200 cc output upon initial thoracentesis. Pleural fluid studies pending. She denies any concerning symptoms such as mopped assist, shortness of breath at rest, fever chills. Remaining 12 point review of systems remains negative aside from a productive cough of rust-colored sputum. Physical Exam Vital Signs: Vital Signs: Last Vital Signs Temp 97.9 F 04/17/21 12:00 Pulse 89 04/17/21 12:00 Resp 20 04/17/21 12:00 BP 114/60 04/17/21 12:00 Pulse Ox 96 04/17/21 12:00 BMI result Body Mass Index 24.2 Const: General: cooperative, comfortable, no acute distress, alert and awake Nutritional Appearance: well nourished and overweight Orientation/consciousness: oriented to person, oriented to place, oriented to time and patient oriented x3 HENMT: Head: Yes normal to inspection, Yes normocephalic and Yes atraumatic Face and sinus: Yes normal facial exam Mouth: other (Dry, crackled lips) Eyes: General: appearance normal, both eyes and all related structures Periorbital: periorbital findings normal Conjunctivae: conjunctivae normal Sclerae: sclerae normal Pupils: Equal, round and reactive pupils present and Pupil accommodation reflex normal EOM: EOMs intact bilaterally Neck: Neck: Yes normal visual inspection, Yes full ROM, Yes no lymphadenopathy, Yes trachea midline, Yes supple, No lymphadenopathy, No tender and Yes no JVD Chest: Other: Right-sided chest tube small bore pigtail catheter remains in place attached to -20 low wall suction approximately 450 cc in [facility] total and 100 cc output overnight while on water seal. No detectable chest tube air leak. Resp: Effort & Inspection: normal respiratory effort, able to speak in complete sentences, normal respiratory pattern, no audible wheezes, no cough, no stridor, not tachypneic and other (Patient speaking in full sentences on room air. Chest tube to *waterseal/landa) Auscultation: crackles (bilateral bases, dim to right lung base) and diminished lung sounds Cardio: Jugular venous distension: no JVD Palpation: normal PMI Rate: regular rate Rhythm: regular rhythm Heart sounds: S1 normal heart sound present, S2 normal heart sound present, no click, no gallops, no murmurs and no rubs Peripheral pulses: Peripheral pulses 2+ throughout GI: Inspection: Yes normal to inspection Palpation (GI): Soft to palpation and nontender Auscultation: normal bowel sounds Back/Spine/Pelvis: Thoracic/Lumbar Spine: thoracic and lumbar spine normal to inspection Skin: General skin exam: no rashes or lesions noted and dry skin Lesions: no lesions Rashes: no rashes Neuro: General: oriented to person, oriented to place, oriented to time, patient oriented x3, gait normal, moves all extremities and Unable to assess gait Cranial nerves: Yes Equal, round and reactive pupils present Speech: No Abnormal speech present Gait exam (Neuro): Unable to assess gait Motor exam (neuro): 5/5 motor strength present throughout Extrem: General: Yes normal to inspection, Yes capillary refill normal, Yes no clubbing, cyanosis or edema, Yes no pedal edema and Yes no calf tenderness Psych: Appearance: grossly normal and well kempt Mental Status: mental status grossly normal Speech and movement: Normal speech and movement present and Clear speech present Affect: normal affect Attitude: cooperative Thought process: Normal thought process present Thought content: Normal thought content present Objective Data Active Medications Acetaminophen (Acetaminophen 325 Mg Tablet) 650 mg PO Q6H PRN PRN Reason: Fever Last Admin: 04/16/21 17:44 Dose: 650 mg Documented by: ELIZABETH Benzonatate (Benzonatate 100 Mg Capsule) 100 mg PO TID PRN PRN Reason: Cough Last Admin: 04/16/21 22:11 Dose: 100 mg Documented by: TON Guaifenesin/Dextromethorphan (Guaifenesin Dm 200/20/10 Ml 10 Ml Syrup) 10 ml PO QID [place] Last Admin: 04/17/21 07:56 Dose: 10 ml Documented by: ELIZABETH Hydroxyzine HCl (Hydroxyzine Hcl 25 Mg Tablet) 25 mg PO Q6H PRN PRN Reason: Anxiety Last Admin: 04/16/21 22:11 Dose: 25 mg Documented by: TON Cefazolin Sodium/Dextrose (Ancef) 2 gm in 50 mls @ 100 mls/hr IV Q8H [facility] Last Infusion: 04/17/21 08:36 Dose: 0 mls/hr Documented by: ELIZABETH Melatonin (Melatonin 3 Mg Tablet) 6 mg PO BEDTIME PRN PRN Reason: Insomnia Last Admin: 04/16/21 22:11 Dose: 6 mg Documented by: TON Methadone HCl (Methadone Hcl 20 Mg/2 Ml Oral.Conc) 55 mg PO DAILY [facility] Last Admin: 04/17/21 07:55 Dose: 55 mg Documented by: ELIZABETH Nicotine Polacrilex (Nicotine Polacrilex 2 Mg Gum) 2 mg BUCCAL Q2H PRN PRN Reason: Nicotine Cravings Last Admin: 04/04/21 05:47 Dose: 2 mg Documented by: ODRISM Oxycodone HCl (Oxycodone Hcl Immed Release 5 Mg Tablet) 5 mg PO Q4H PRN PRN Reason: Pain, Moderate (Pain Scale 4-6 Last Admin: 04/16/21 17:45 Dose: 5 mg Documented by: ELIZABETH Pharmacy Consult (Consult Rx Perform Med Rec) 1 each MISCELLANE ONCE PRN PRN Reason: Consult order Senna (Sennosides 8.6 Mg Tablet) 17.2 mg PO BEDTIME PRN PRN Reason: Constipation Sodium Chloride (0.9 % Sodium Chloride Flush 3 Ml Syringe) 3 ml IVFLUSH QSHIFT [facility] Last Admin: 04/17/21 07:58 Dose: 3 ml Documented by: ELIZABETH Labs CBC & Chem 7: 04/14/21 08:29 04/15/21 05:16 Labs: Laboratory Results - last 24 hr 04/16/21 04/16/21 16:53 16:53 Pleural WBC 2.427 Pleural RBC 0.327 Pleural Neutrophils 48 Pleural Lymphocytes 24 Pleural Monocytes 26 Pleural Other Cells 2 Pleural Total Protein 4.2 Pleural LDH 451 Pleural Glucose 68 Microbiology Microbiology Results: Microbiology 04/16/21 16:53 Gram Stain - Final Pleural Fluid Routine Culture - Preliminary No growth to date. Anaerobic Culture - Preliminary No growth to date. Procedures Date of Service Date of Service: 04/17/21 Progress Note: A&P Assessment and plan (1) Pleural effusion: Status: Acute Assessment and Plan: 25 year old female with IVDA (heroin, cocaine) admitted to [facility] with severe sepsis with anemia and coagulopathy treated with PRBc and vitamin K, bacteremia, tricuspid valve endocarditis, septic pulmonary emboli, bilateral pleural effusion, thrombocytopenia, and hyponatremia. +HCV ab. Loculated left pleural effusion s/p IR pigtail catheter placement on 04/08/21. Morning chest x-ray reveals improvement of left-sided pleural effusion s/p tPA administration x 3 days. left-sided pigtail catheter was removed without incident On 04/15/2021 a dry occlusive dressing put in place. Right pleural effusion right-sided pigtail catheter placed yesterday on 04/16. Thoracentesis yielded approximately 200 cc of serosanguineous fluid output. Pleural fluid being sent to lab for pleural fluid analysis and culture pending. right-sided chest tube remained on water-seal overnight with approximately 100 cc of serosanguineous fluid output overnight with a total of 450 cc of serosanguineous fluid in [facility] reservoir. Her chest tube was placed to -20 low wall suction after chest x-ray revealed a large decrease in right-sided pleural fluid however were pleural fluid previously resided there is a small right lateral pneumothorax likely trapped lung. Is my hope that placing patient on -20 Krystian suction may help free and fully expand lung. Chest x-ray for tomorrow a.m. Case discussed with Dr. Newton. (2) Infective endocarditis: Status: Acute (3) Septic embolism: Status: Acute (4) Cocaine use disorder, severe, dependence: Status: Acute (5) Opioid use disorder, severe, dependence: Status: Acute (6) Bacteremia: Status: Acute (7) Acute hyponatremia: Status: Acute (8) MELITON (acute kidney injury): Status: Acute (9) Pneumonia: Status: Acute (10) Thrombocytopenia: Status: Acute Fall Risk Details Current Medications: Current Medications Acetaminophen (Acetaminophen 325 Mg Tablet) 650 mg PO Q6H PRN PRN Reason: Fever Last Admin: 04/16/21 17:44 Dose: 650 mg Documented by: Benzonatate (Benzonatate 100 Mg Capsule) 100 mg PO TID PRN PRN Reason: Cough Last Admin: 04/16/21 22:11 Dose: 100 mg Documented by: Guaifenesin/Dextromethorphan (Guaifenesin Dm 200/20/10 Ml 10 Ml Syrup) 10 ml PO QID [facility] Last Admin: 04/17/21 07:56 Dose: 10 ml Documented by: Hydroxyzine HCl (Hydroxyzine Hcl 25 Mg Tablet) 25 mg PO Q6H PRN PRN Reason: Anxiety Last Admin: 04/16/21 22:11 Dose: 25 mg Documented by: Cefazolin Sodium/Dextrose (Ancef) 2 gm in 50 mls @ 100 mls/hr IV Q8H [facility] Last Infusion: 04/17/21 08:36 Dose: Infused Documented by: Melatonin (Melatonin 3 Mg Tablet) 6 mg PO BEDTIME PRN PRN Reason: Insomnia Last Admin: 04/16/21 22:11 Dose: 6 mg Documented by: Methadone HCl (Methadone Hcl 20 Mg/2 Ml Oral.Conc) 55 mg PO DAILY [facility] Last Admin: 04/17/21 07:55 Dose: 55 mg Documented by: Nicotine Polacrilex (Nicotine Polacrilex 2 Mg Gum) 2 mg BUCCAL Q2H PRN PRN Reason: Nicotine Cravings Last Admin: 04/04/21 05:47 Dose: 2 mg Documented by: Oxycodone HCl (Oxycodone Hcl Immed Release 5 Mg Tablet) 5 mg PO Q4H PRN PRN Reason: Pain, Moderate (Pain Scale 4-6 Last Admin: 04/16/21 17:45 Dose: 5 mg Documented by: Pharmacy Consult (Consult Rx Perform Med Rec) 1 each MISCELLANE ONCE PRN PRN Reason: Consult order Senna (Sennosides 8.6 Mg Tablet) 17.2 mg PO BEDTIME PRN PRN Reason: Constipation Sodium Chloride (0.9 % Sodium Chloride Flush 3 Ml Syringe) 3 ml IVFLUSH QSHIFT [facility] Last Admin: 04/17/21 07:58 Dose: 3 ml Documented by: Time Spent With Patient Time: Total time spent is greater than 50% in coordination of care (as documented) at patient's floor/unit and/or counseling patient: Time with patient: 25 - 35 minutes Quality Stroke Does the patient have a stroke diagnosis?: No VTE Prior VTE?: No VTE Risk Level:: Medical - moderate - high VTE Device Contraindication: Treatment Not Indicated VTE Drug Contraindication: N/A - Med Ordered
--- NOTE | 2021-04-17 13:47 | MHC.CLN ---
F/U APPEARS TO BE EATING WELL. CONTINUE DIET REGULAR AND ENSURE TID, ENSURE PROVIDES 1050 KCAL, 39 G PROTEIN. CONTINUE TO FOLLOW.
--- NOTE | 2021-04-17 14:12 | PC.NURSE ---
right posterior chest tube connected to wall sxn per thoracic provider. The last vangie of output was marked yesturday at 16;30 on the chest tube chamber. The total output since yesterday 16:30 till today 14:00 is 170 ml
--- NOTE | 2021-04-17 15:59 | MHC.CM.PN ---
NURSE ROBERTA ATKINSON NOTE PATIENT DECLINED REHAB EARLIER IN THE WEEK , WITH PERSISTENT PAIN INCREASING AND WORSENING SHORTNESS OF BREATH SHE WAS ACCEPTING MORE OF PROCEDURE SHE REMAINS ON IV ABX THORAIC SURGERY FOLLOWING . 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
[2021-04-17 16:00] VITALS: BP 119/66; PULSE 100; RESP 17; TEMP 36.8; O2SAT 97
[2021-04-17] MEDS: Benzonatate 100 MG CAPSULE PO (16:09)
[2021-04-17] MEDS: hydrOXYzine HCL 25 MG TABLET PO (16:09)
[2021-04-17] MEDS: Acetaminophen 325 MG TABLET 650 MG PO (16:16)
[2021-04-17] MEDS: oxyCODONE HCl Immed Release 5 MG TABLET PO ×2 (16:16→23:46)
[2021-04-17 19:59] VITALS: BP 118/57; PULSE 100; RESP 16; TEMP 36.6; O2SAT 97
[2021-04-17] MEDS: Melatonin 3 MG TABLET 6 MG PO (20:01)
[2021-04-18] VITALS (8 sets, daily range): BP systolic 120–146; BP diastolic 56–73; PULSE 92–110; RESP 17–21; TEMP 36.2–38.1; O2SAT 94–99
[2021-04-18] MEDS: oxyCODONE HCl Immed Release 5 MG TABLET PO ×3 (05:07→18:09)
[2021-04-18 07:19] LABS: Hematocrit 22.2 % (37.0-47.0); Mean Corpuscular HGB Conc 31.1 g/dl (31.0-35.0); Mean Corpuscular Hemoglobin 27.8 pg (27.0-33.0); Mean Corpuscular Volume 89.5 fL (80.0-98.0); Mean Platelet Volume 9.9 fL (9.4-12.3); Platelet Count 122 X10*3/uL (160-400); Red Blood Count 2.48 X10*6/uL (4.20-5.50); Red Cell Distribution Width 17.1 % (11.0-16.0); White Blood Count 13.4 X10*3/uL (4.8-10.8)
[2021-04-18 07:32] LABS: Hemoglobin 6.9 g/dl (12.0-16.0)
[2021-04-18 07:54] LABS: B Type Natriuretic Peptide 248 pg/mL (<100)
[2021-04-18 08:02] LABS: Atypical Lymph Absolute Manual 0.3 x10*3/uL; Atypical Lymphs Percent Manual 2 % (0-6); Band Neutrophils Percent 6 % (3-5); Basophils Abs Manual 0.3 X10*3/uL (0.0-0.2); Basophils Percent Manual 2 % (0-2); Lymphocytes Absolute Manual 1.5 X10*3/uL (1.2-4.9); Lymphocytes Percent Manual 11 % (20-40); Metamyelocytes Absolute 0.4 X10*3/uL; Metamyelocytes Percent 3 %; Monocytes Absolute Manual 0.3 X10*3/uL (0.1-1.2); Monocytes Percent Manual 2 % (2-11); Neutrophils Absolute Manual 10.7 X10*3/uL (2.0-8.3); Neutrophils Percent Manual 74 % (45-73)
[2021-04-18 08:03] LABS: RBC Morphology NOTED
[2021-04-18 08:04] LABS: Hypochromasia 2+ (15-30) /OIF
[2021-04-18 08:05] LABS: Tear Drop Cells 1+ (0-2) /OIF
[2021-04-18 08:06] LABS: Burr Cells 1+ (0-2) /OIF; Schistocytes 1+ (0-2) /OIF
[2021-04-18 08:07] LABS: Platelet Estimate SLIGHTLY DECREASED (NORMAL); Platelet Morphology Comment NORMAL
[2021-04-18] MEDS: guaiFENesin DM 200/20/10 ML 10 ML SYRUP PO ×4 (08:39→20:20)
[2021-04-18] MEDS: methADONE HCl 20 MG/2 ML ORAL.CONC 55 MG PO (08:39)
[2021-04-18] MEDS: hydrOXYzine HCL 25 MG TABLET PO (08:39)
[2021-04-18] MEDS: ceFAZolin Sodium/Dextrose,Iso 2 GM/50 ML PIGGYBACK IV ×2 (08:39→16:03)
[2021-04-18] MEDS: 0.9 % Sodium Chloride Flush 3 ML SYRINGE IVFLUSH ×2 (08:40→16:04)
--- NOTE | 2021-04-18 08:59 | P.PNNP_ITS ---
Subjective Subjective Date of Service: 04/18/21 Interval history: seen and examined complains of SOB on exertion edema in legs Physical Exam Vital Signs: Vital Signs: Last Vital Signs Temp 97.1 F 04/18/21 08:16 Pulse 92 04/18/21 08:16 Resp 21 H 04/18/21 08:16 BP 132/66 04/18/21 08:16 Pulse Ox 96 04/18/21 08:16 BMI result Body Mass Index 24.2 Const: General: no acute distress HENMT: Head: Yes normocephalic and Yes atraumatic Neck: Neck: Yes supple Resp: Auscultation: diminished lung sounds Cardio: Heart sounds: S1 normal heart sound present and S2 normal heart sound present GI: Palpation (GI): Soft to palpation and nontender Extrem: General: Yes edema Objective Data Labs CBC & Chem 7: 04/18/21 06:52 04/15/21 05:16 Labs: Laboratory Results - last 24 hr 04/18/21 04/18/21 06:52 06:52 WBC 13.4 H RBC 2.48 L Hgb 6.9 L* Hct 22.2 L MCV 89.5 MCH 27.8 MCHC 31.1 RDW 17.1 H Plt Count 122 L D MPV 9.9 Immature Gran % (Auto) Cancelled Neut % (Auto) Cancelled Lymph % (Auto) Cancelled [place] % (Auto) Cancelled Eos % (Auto) Cancelled Baso % (Auto) Cancelled Lymph # (Auto) Cancelled [place] # (Auto) Cancelled Eos # (Auto) Cancelled Baso # (Auto) Cancelled Abs Immat Gran (auto) Cancelled Absolute Neuts (auto) Cancelled Absolute Nucleated RBC 0.000 Nucleated RBC % (auto) 0.0 Neutrophils % (Manual) 74 H Band Neutrophils % 6 H Lymphocytes % (Manual) 11 L Atypical Lymphs % (Man) 2 Monocytes % (Manual) 2 Basophils % (Manual) 2 Metamyelocytes % 3 Abs Neuts (Manual) 10.7 H Lymphocytes # (Manual) 1.5 Atyp Lymphs # (Manual) 0.3 Monocytes # (Manual) 0.3 Basophils # (Manual) 0.3 H Metamyelocytes # 0.4 Platelet Estimate SLIGHTLY DECREASED Plt Morphology Comment NORMAL RBC Morphology NOTED Hypochromasia 2+ (15-30) Tear Drop Cells 1+ (0-2) Jber Cells 1+ (0-2) Schistocytes 1+ (0-2) B-Natriuretic Peptide 248 H Microbiology Microbiology Results: Microbiology 04/16/21 16:53 Pleural Fluid Gram Stain - Final 04/16/21 16:53 Pleural Fluid Routine Culture - Preliminary No growth to date. 04/16/21 16:53 Pleural Fluid Anaerobic Culture - Preliminary No growth to date. 04/08/21 16:00 Pleural Fluid Gram Stain - Final 04/08/21 16:00 Pleural Fluid Routine Culture - Final No growth after 2 days 04/08/21 16:00 Pleural Fluid Anaerobic Culture - Final NO GROWTH AFTER 5 DAYS 04/07/21 08:23 Blood - Venous Blood Culture - Final No growth after 5 days. 04/07/21 08:12 Blood - Venous Blood Culture - Final No growth after 5 days. 03/31/21 21:53 Blood - Venous Blood Culture - Final Staphylococcus aureus Strep dysgalactiae ssp equisim 03/31/21 21:53 Blood - Venous Blood Culture - Final Staphylococcus aureus Strep dysgalactiae ssp equisim 04/01/21 Unknown Urine clean catch - Urine fox top Urine Culture - Final Procedures Date of Service Date of Service: 04/18/21 Assessment & Plan Assessment and plan (1) MELITON (acute kidney injury): Status: Acute (2) Hyponatremia: Status: Acute Assessment and Plan: Sna better MELITON due to renal hypoperfusion and tubular stress resolving prolonged tubular stress causing ATN low c3 and c4 but kidney function overall better (peak SCr 2.5 mg/dl) no need for kidney biopsy 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
--- NOTE | 2021-04-18 10:41 | P.PNIM_ITS ---
Subjective Subjective Date of Service: 04/18/21 Interval History: Feels tired this morning, denies worsening shortness of breath, no overnight fever chills, persistent productive cough with raad sputum, right chest tube to -20 suction with serosanguineous drainage. Review of Systems Review of Systems: Yes all other systems are reviewed and are negative Physical Exam Vital Signs: Vital Signs: Last Vital Signs Temp 97.1 F 04/18/21 08:16 Pulse 92 04/18/21 08:16 Resp 21 H 04/18/21 08:16 BP 132/66 04/18/21 08:16 Pulse Ox 96 04/18/21 08:16 BMI result Body Mass Index 24.2 Gen:? Awake alert,?sick appearing , pale, no acute distress Neck: supple, right IJ catheter in place Lungs:? Good air entry, bilateral rhonchi, no respiratory distress,? chest tube to suction with serosanguinous drainage Heart: regular rate and rhythm Abd: soft, non-tender, non-distended Ext: no edema Skin: warm/well-perfused,pallor, R forearm ulcer with dressing in place Neuro: alert and oriented x3, Musculoskeletal no deformity Psych appropriate affect ? Objective Data Active Medications Acetaminophen (Acetaminophen 325 Mg Tablet) 650 mg PO Q6H PRN PRN Reason: Fever Last Admin: 04/17/21 16:16 Dose: 650 mg Documented by: TON Benzonatate (Benzonatate 100 Mg Capsule) 100 mg PO TID PRN PRN Reason: Cough Last Admin: 04/17/21 16:09 Dose: 100 mg Documented by: TON Guaifenesin/Dextromethorphan (Guaifenesin Dm 200/20/10 Ml 10 Ml Syrup) 10 ml PO QID [facility] Last Admin: 04/18/21 08:39 Dose: 10 ml Documented by: NICOLA Hydroxyzine HCl (Hydroxyzine Hcl 25 Mg Tablet) 25 mg PO Q6H PRN PRN Reason: Anxiety Last Admin: 04/18/21 08:39 Dose: 25 mg Documented by: NICOLA Cefazolin Sodium/Dextrose (Ancef) 2 gm in 50 mls @ 100 mls/hr IV Q8H [facility] Last Infusion: 04/18/21 09:14 Dose: 0 mls/hr Documented by: LALO Melatonin (Melatonin 3 Mg Tablet) 6 mg PO BEDTIME PRN PRN Reason: Insomnia Last Admin: 04/17/21 20:01 Dose: 6 mg Documented by: TON Methadone HCl (Methadone Hcl 20 Mg/2 Ml Oral.Conc) 55 mg PO DAILY [facility] Last Admin: 04/18/21 08:39 Dose: 55 mg Documented by: NICOLA Nicotine Polacrilex (Nicotine Polacrilex 2 Mg Gum) 2 mg BUCCAL Q2H PRN PRN Reason: Nicotine Cravings Last Admin: 04/04/21 05:47 Dose: 2 mg Documented by: ODRISKelly Oxycodone HCl (Oxycodone Hcl Immed Release 5 Mg Tablet) 5 mg PO Q4H PRN PRN Reason: Pain, Moderate (Pain Scale 4-6 Last Admin: 04/18/21 08:39 Dose: 5 mg Documented by: NICOLA Pharmacy Consult (Consult Rx Perform Med Rec) 1 each MISCELLANE ONCE PRN PRN Reason: Consult order Senna (Sennosides 8.6 Mg Tablet) 17.2 mg PO BEDTIME PRN PRN Reason: Constipation Sodium Chloride (0.9 % Sodium Chloride Flush 3 Ml Syringe) 3 ml IVFLUSH QSHIFT [facility] Last Admin: 04/18/21 08:40 Dose: 3 ml Documented by: NICOLA Labs CBC & Chem 7: 04/18/21 06:52 04/15/21 05:16 Labs: Laboratory Results - last 24 hr 04/18/21 04/18/21 06:52 06:52 MCV 89.5 MCH 27.8 MCHC 31.1 RDW 17.1 H Plt Count 122 L D MPV 9.9 Immature Gran % (Auto) Cancelled Neut % (Auto) Cancelled Lymph % (Auto) Cancelled [place] % (Auto) Cancelled Eos % (Auto) Cancelled Baso % (Auto) Cancelled Lymph # (Auto) Cancelled [place] # (Auto) Cancelled Eos # (Auto) Cancelled Baso # (Auto) Cancelled Abs Immat Gran (auto) Cancelled Absolute Neuts (auto) Cancelled Absolute Nucleated RBC 0.000 Nucleated RBC % (auto) 0.0 Neutrophils % (Manual) 74 H Band Neutrophils % 6 H Lymphocytes % (Manual) 11 L Atypical Lymphs % (Man) 2 Monocytes % (Manual) 2 Basophils % (Manual) 2 Metamyelocytes % 3 Abs Neuts (Manual) 10.7 H Lymphocytes # (Manual) 1.5 Atyp Lymphs # (Manual) 0.3 Monocytes # (Manual) 0.3 Basophils # (Manual) 0.3 H Metamyelocytes # 0.4 Platelet Estimate SLIGHTLY DECREASED Plt Morphology Comment NORMAL RBC Morphology NOTED Hypochromasia 2+ (15-30) Tear Drop Cells 1+ (0-2) [place] Cells 1+ (0-2) Schistocytes 1+ (0-2) B-Natriuretic Peptide 248 H Microbiology Microbiology Results: Microbiology 04/16/21 16:53 Gram Stain - Final Pleural Fluid Routine Culture - Preliminary No growth to date. Anaerobic Culture - Preliminary No growth to date. Assessment and Plan (1) Hyponatremia: Status: Acute (2) Pleural effusion: Status: Acute (3) Septic embolism: Status: Acute (4) Infective endocarditis: Status: Acute (5) Cocaine use disorder, severe, dependence: Status: Acute (6) Opioid use disorder, severe, dependence: Status: Acute (7) Acute respiratory failure with hypoxia: Status: Acute Assessment and Plan: 25yo F with history of IV heroin + cocaine abuse, recent RUE cellulitis with open wound,p/w SOB and admitted for severe sepsis found to be bacteremic with TV endocarditis complicated by cavitary septic emboli + bilateral loculated pleural effusions # severe sepsis/ MSSA + Streptococcus dysgalactiae bacteremia/infective endocarditis with 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 No fevers in last 48 hours, persistent productive cough with raad phlegm, less shortness of breath ? WBC and lactate normalized, s/p 7d of vancomycin, now on cefazolin 2g IV q8h day #, repeat blood culture 04/07 clear. ? Continue current treatment right IJ catheter placed by IR 04/16 due to no IV access. ? # loculated B pleural effusions/# small L pneumothorax ? Right chest tube placed 04/16 by IR, 200 mL of fluid removed, right chest tube with serosanguineous drainage, repeat chest x-ray today shows pneumothorax remains unchanged with thickened pleura and probable trapped lung, bilateral lung disease unchanged, overnight 170 cc of serosanguineous fluid output, being followed by thoracic surgery question will need VATS procedure ? status post 3d of chemical decortication with intrapleural tPA 04/10-04/12 with decrease in pleural effusion left side, chest tube pulled on 04/15 ? Right-sided pleural fluid g stain and culture sensitivity negative, patient on antibiotic for several days # anemia of chronic inflammation - status post 5 units of packed RBC ( tranfused 3u pRBCs 04/03/21 + 2u pRBCs 04/07/21; 1 unit packed RBC on 04/13 ) repeat hematocrit today dropped to 22.2 hemoglobin less than 7, will transfuse 1 unit of packed RBC follow CBC # coagulopathy - vit K 10 mg PO given; INR 1.6 # acute hypoxic respiratory failure - oxygenation stable on 2 L, wean O2 as tolerated # thrombocytopenia - likely due to sepsis + HCV, resolved # MAT-associated wound - wound care # MELITON - SCr normalized, avoid nephrotoxins + continue to monitor # hypoNa - mild, 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, sodium remained stable between 127-129 # transaminasemia - resolved, likely due to sepsis # HCV - Ab positive, viral load not detected, HBV immune; HIV negative # opioid use disorder - continue methadone 55 mg/d; Addiction Medicine following closely, recommend to continue current doses since patient noted to be somnolent # cocaine abuse - prn hydroxyzine, CARE Team # tobacco abuse - NRT # protein-calorie malnutrition - Ensure supplementation # VTE ppx - SCDs # dispo declined rehab facility earlier will reassess discharge plan once medical ready for discharge, patient seen by psych and is competent to make decisions. ?? Quality Stroke Does the patient have a stroke diagnosis?: No VTE Prior VTE?: No VTE Risk Level:: Medical - moderate - high VTE Device Contraindication: Treatment Not Indicated VTE Drug Contraindication: N/A - Med Ordered
--- NOTE | 2021-04-18 11:56 | PC.NURSE ---
CHEST TUBE RIGHT BACK OUTPUT FROM [id number], 30ML
--- NOTE | 2021-04-18 11:58 | PC.NURSE ---
NOTE ADDED FROM 0745 THIS AM, RN COWORKER TOOK MESSAGE FROM LAB OF HGB OF 6.9 AND IT WAS THEN REPORTED TO HOSPITALIST. NEW ORDER LATER RECEIVED FOR RBC TRANSFUSION AT APPROX 1145. RN COVERING NEXT HALF OF SHIFT WAS ALERTED AND UPDATED
--- NOTE | 2021-04-18 16:01 | P.PNTS_ITS ---
Subjective Subjective Date of Service: 04/18/21 Interval history: Patient's right-sided pigtail catheter was placed on -20 low wall suction yesterday. Since being placed on suction patient has put out approximately 300 cc of serosanguineous fluid output. Her morning chest x-ray continues to show a right-sided lateral pneumothorax unchanged from previous exam likely to be trapped lung with pleural thickening. There remains a small residual pleural effusion. Patient denies any shortness of breath at rest however does continue to admit to some dyspnea on exertion. She is speaking in full sentences and is on 2 L nasal cannula. Denies any concerning symptoms such as fever, chills and states that her discomfort around her chest tube site is well controlled. Remaining 12 pointreview of systems is negative. she is receiving 1 unit of PRBCs for hemoglobin of 6.9. Physical Exam Vital Signs: Vital Signs: Last Vital Signs Temp 98.5 F 04/18/21 14:42 Pulse 97 04/18/21 14:42 Resp 18 04/18/21 14:42 BP 122/61 04/18/21 14:42 Pulse Ox 96 04/18/21 08:16 BMI result Body Mass Index 24.2 Const: General: cooperative, comfortable, no acute distress, alert, awake and ill appearing Nutritional Appearance: well nourished and overweight Orientation/consciousness: oriented to person, oriented to place, oriented to time and patient oriented x3 HENMT: Head: Yes normal to inspection, Yes normocephalic and Yes atraumatic Face and sinus: Yes normal facial exam Mouth: other (Dry, crackled lips) Eyes: General: appearance normal, both eyes and all related structures Periorbital: periorbital findings normal Conjunctivae: conjunctivae normal Sclerae: sclerae normal Pupils: Equal, round and reactive pupils present and Pupil accommodation reflex normal EOM: EOMs intact bilaterally Neck: Neck: Yes normal visual inspection, Yes full ROM, Yes no lymphadenopathy, Yes trachea midline, Yes supple, No lymphadenopathy, No tender and Yes no JVD Lymphatic: no lymphadenopathy noted Chest: Other: Right-sided chest tube small bore pigtail catheter remains in place attached to -20 low wall suction approximately 750 cc in [facility] total and 300 cc output overnight while on water seal. No detectable chest tube air leak. Chest palpation & inspection: normal inspection of the chest Resp: Effort & Inspection: normal respiratory effort, able to speak in complete sentences, normal respiratory pattern, no audible wheezes, no cough, no stridor, not tachypneic and other (Patient speaking in full sentences on room air. Chest tube to *waterseal/landa) Auscultation: crackles (bilateral bases, dim to right lung base) and diminished lung sounds Cardio: Jugular venous distension: no JVD Palpation: normal PMI Rate: regular rate Rhythm: regular rhythm Heart sounds: S1 normal heart sound present, S2 normal heart sound present, no click, no gallops, no murmurs and no rubs Peripheral pulses: Peripheral pulses 2+ throughout GI: Inspection: Yes normal to inspection Palpation (GI): Soft to palpation and nontender Auscultation: normal bowel sounds Back/Spine/Pelvis: Thoracic/Lumbar Spine: thoracic and lumbar spine normal to inspection Skin: General skin exam: no rashes or lesions noted and dry skin Lesions: no lesions Rashes: no rashes Neuro: General: oriented to person, oriented to place, oriented to time, patient oriented x3, gait normal, moves all extremities and Unable to assess gait Cranial nerves: Yes Equal, round and reactive pupils present Speech: No Abnormal speech present Gait exam (Neuro): Unable to assess gait Motor exam (neuro): 5/5 motor strength present throughout Extrem: General: Yes normal to inspection, Yes capillary refill normal, Yes no clubbing, cyanosis or edema, Yes no pedal edema and Yes no calf tenderness Psych: Appearance: grossly normal and well kempt Mental Status: mental stat us grossly normal Speech and movement: Normal speech and movement present and Clear speech present Affect: normal affect Attitude: cooperative Thought process: Normal thought process present Thought content: Normal thought content present Procedures Date of Service Date of Service: 04/18/21 Progress Note: A&P Assessment and plan (1) Pleural effusion: Status: Acute Assessment and Plan: 25 year old female with IVDA (heroin, cocaine) admitted to [facility] with severe sepsis with anemia and coagulopathy treated with PRBc and vitamin K, bacteremia, tricuspid valve endocarditis, septic pulmonary emboli, bilateral pleural effusion, thrombocytopenia, and hyponatremia. +HCV ab. Loculated left pleural effusion * s/p IR pigtail catheter placement on 04/08/21. * Morning chest x-ray reveals improvement of left-sided pleural effusion s/p tPA administration x 3 days. * * left-sided pigtail catheter was removed without incident On 04/15/2021 a dry occlusive dressing put in place. Right pleural effusion * right-sided pigtail catheter placed yesterday on 04/16. Thoracentesis yielded approximately 200 cc of serosanguineous fluid output. * Pleural fluid being sent to lab for pleural fluid analysis and culture pending. * right-sided chest tube remained on water-seal overnight with approximately 300 cc of serosanguineous fluid output overnight with a total of 750 cc of serosanguineous fluid in [facility] reservoir. * Her chest tube was placed to -20 low wall suction after chest x-ray revealed a large decrease in right-sided pleural fluid however were pleural fluid previously resided there is a small right lateral pneumothorax likely trapped lung. Is my hope that placing patient on -20 [place] suction may help free and fully expand lung. * will continue with chest tube on -20 low wall suction throughout today and ov ernight due to moderate amount of fluid output. * Chest x-ray for tomorrow a.m. * Case discussed with Dr. Newton. (2) Infective endocarditis: Status: Acute (3) Septic embolism: Status: Acute (4) Cocaine use disorder, severe, dependence: Status: Acute (5) Opioid use disorder, severe, dependence: Status: Acute (6) Bacteremia: Status: Acute (7) Acute hyponatremia: Status: Acute (8) MELITON (acute kidney injury): Status: Acute (9) Pneumonia: Status: Acute (10) Thrombocytopenia: Status: Acute Fall Risk Details Current Medications: Current Medications Acetaminophen (Acetaminophen 325 Mg Tablet) 650 mg PO Q6H PRN PRN Reason: Fever Last Admin: 04/17/21 16:16 Dose: 650 mg Documented by: Benzonatate (Benzonatate 100 Mg Capsule) 100 mg PO TID PRN PRN Reason: Cough Last Admin: 04/17/21 16:09 Dose: 100 mg Documented by: Guaifenesin/Dextromethorphan (Guaifenesin Dm 200/20/10 Ml 10 Ml Syrup) 10 ml PO QID [place] Last Admin: 04/18/21 13:51 Dose: 10 ml Documented by: Hydroxyzine HCl (Hydroxyzine Hcl 25 Mg Tablet) 25 mg PO Q6H PRN PRN Reason: Anxiety Last Admin: 04/18/21 08:39 Dose: 25 mg Documented by: Cefazolin Sodium/Dextrose (Ancef) 2 gm in 50 mls @ 100 mls/hr IV Q8H [facility] Last Infusion: 04/18/21 09:14 Dose: Infused Documented by: Melatonin (Melatonin 3 Mg Tablet) 6 mg PO BEDTIME PRN PRN Reason: Insomnia Last Admin: 04/17/21 20:01 Dose: 6 mg Documented by: Methadone HCl (Methadone Hcl 20 Mg/2 Ml Oral.Conc) 55 mg PO DAILY [facility] Last Admin: 04/18/21 08:39 Dose: 55 mg Documented by: Nicotine Polacrilex (Nicotine Polacrilex 2 Mg Gum) 2 mg BUCCAL Q2H PRN PRN Reason: Nicotine Cravings Last Admin: 04/04/21 05:47 Dose: 2 mg Documented by: Oxycodone HCl (Oxycodone Hcl Immed Release 5 Mg Tablet) 5 mg PO Q4H PRN PRN Reason: Pain, Moderate (Pain Scale 4-6 Last Admin: 04/18/21 08:39 Dose: 5 mg Documented by: Pharmacy Consult (Consult Rx Perform Med Rec) 1 each MISCELLANE ONCE PRN PRN Reason: Consult order Senna (Sennosides 8.6 Mg Tablet) 17.2 mg PO BEDTIME PRN PRN Reason: Constipation Sodium Chloride (0.9 % Sodium Chloride Flush 3 Ml Syringe) 3 ml IVFLUSH QSHIFT [facility] Last Admin: 04/18/21 08:40 Dose: 3 ml Documented by: Time Spent With Patient Time: Total time spent is greater than 50% in coordination of care (as documented) at patient's floor/unit and/or counseling patient: Time with patient: 25 - 35 minutes Quality Stroke Does the patient have a stroke diagnosis?: No VTE Prior VTE?: No VTE Risk Level:: Medical - moderate - high VTE Device Contraindication: Treatment Not Indicated VTE Drug Contraindication: N/A - Med Ordered
[2021-04-18] MEDS: Acetaminophen 325 MG TABLET 650 MG PO (20:20)
[2021-04-19] VITALS: BP 111/65; PULSE 90; RESP 18; TEMP 36.1; O2SAT 96
[2021-04-19] MEDS: ceFAZolin Sodium/Dextrose,Iso 2 GM/50 ML PIGGYBACK IV ×3 (00:20→17:08)
[2021-04-19] MEDS: 0.9 % Sodium Chloride Flush 3 ML SYRINGE IVFLUSH ×2 (00:20→17:08)
[2021-04-19 03:26] VITALS: BP 125/72; PULSE 98; RESP 18; TEMP 36.6; O2SAT 95
[2021-04-19] MEDS: oxyCODONE HCl Immed Release 5 MG TABLET PO ×3 (04:55→23:34)
[2021-04-19] MEDS: hydrOXYzine HCL 25 MG TABLET PO (04:55)
[2021-04-19 06:48] LABS: Hematocrit 26.5 % (37.0-47.0); Hemoglobin 8.4 g/dl (12.0-16.0); Mean Corpuscular HGB Conc 31.7 g/dl (31.0-35.0); Mean Corpuscular Hemoglobin 28.5 pg (27.0-33.0); Mean Corpuscular Volume 89.8 fL (80.0-98.0); Mean Platelet Volume 9.8 fL (9.4-12.3); Platelet Count 118 X10*3/uL (160-400); Red Blood Count 2.95 X10*6/uL (4.20-5.50); Red Cell Distribution Width 16.6 % (11.0-16.0); White Blood Count 14.7 X10*3/uL (4.8-10.8)
[2021-04-19 07:10] LABS: Anion Gap 11 (12-20); Blood Urea Nitrogen 16 mg/dL (9-16); Calcium 8.6 mg/dL (8.4-10.2); Carbon Dioxide 25 mmol/L (22-29); Chloride 101 mmol/L (96-108); Creatinine Clr Calc Pharmacy 50.7; Estimated Glomerular Filt Rate 51; Glucose Random 82 mg/dL (60-115); Potassium 4.4 mmol/L (3.3-5.1); Sodium 133 mmol/L (135-145)
[2021-04-19 07:25] LABS: Band Neutrophils Percent 3 % (3-5); Basophils Abs Manual 0.1 X10*3/uL (0.0-0.2); Basophils Percent Manual 1 % (0-2); Eosinophils Absolute Manual 0.1 X10*3/uL (0.0-0.4); Eosinophils Percent Manual 1 % (0-4); Lymphocytes Absolute Manual 0.7 X10*3/uL (1.2-4.9); Lymphocytes Percent Manual 5 % (20-40); Metamyelocytes Absolute 0.1 X10*3/uL; Metamyelocytes Percent 1 %; Monocytes Absolute Manual 0.1 X10*3/uL (0.1-1.2); Monocytes Percent Manual 1 % (2-11); Neutrophils Absolute Manual 13.4 X10*3/uL (2.0-8.3); Neutrophils Percent Manual 88 % (45-73); RBC Morphology NOTED
[2021-04-19 07:26] LABS: Platelet Estimate DECREASED (NORMAL); Platelet Morphology Comment NORMAL
[2021-04-19 08:00] VITALS: BP 119/61; PULSE 98; RESP 18; TEMP 36.1; O2SAT 97
[2021-04-19] MEDS: methADONE HCl 20 MG/2 ML ORAL.CONC 55 MG PO (09:18)
[2021-04-19] MEDS: guaiFENesin DM 200/20/10 ML 10 ML SYRUP PO ×4 (09:18→20:15)
--- NOTE | 2021-04-19 10:04 | PM.PNNEP ---
Subjective Subjective Date of Service: 04/19/21 Interval history: seen and examined discussed with medical attending feels tired this morning shortness of breath on exertion Physical Exam Vital Signs: Vital Signs: Last Vital Signs Temp 96.9 F 04/19/21 08:00 Pulse 98 04/19/21 08:00 Resp 18 04/19/21 08:00 BP 119/61 04/19/21 08:00 Pulse Ox 97 04/19/21 08:00 BMI result Body Mass Index 24.2 Const: General: no acute distress HENMT: Head: Yes normocephalic and Yes atraumatic Neck: Neck: Yes supple Resp: Auscultation: diminished lung sounds Cardio: Heart sounds: S1 normal heart sound present and S2 normal heart sound present GI: Palpation (GI): Soft to palpation and nontender Extrem: General: Yes edema Objective Data Labs CBC & Chem 7: 04/19/21 06:11 04/19/21 06:11 Labs: Laboratory Results - last 24 hr 04/13/21 04/18/21 04/19/21 04:38 10:25 06:11 WBC 14.7 H RBC 2.95 L Hgb 8.4 L D Hct 26.5 L MCV 89.8 MCH 28.5 MCHC 31.7 RDW 16.6 H Plt Count 118 L MPV 9.8 Immature Gran % (Auto) Cancelled Neut % (Auto) Cancelled Lymph % (Auto) Cancelled [place] % (Auto) Cancelled Eos % (Auto) Cancelled Baso % (Auto) Cancelled Lymph # (Auto) Cancelled [place] # (Auto) Cancelled Eos # (Auto) Cancelled Baso # (Auto) Cancelled Abs Immat Gran (auto) Cancelled Absolute Neuts (auto) Cancelled Absolute Nucleated RBC 0.000 Nucleated RBC % (auto) 0.0 Neutrophils % (Manual) 88 H Band Neutrophils % 3 Lymphocytes % (Manual) 5 L Monocytes % (Manual) 1 L Eosinophils % (Manual) 1 Basophils % (Manual) 1 Metamyelocytes % 1 Abs Neuts (Manual) 13.4 H Lymphocytes # (Manual) 0.7 L Monocytes # (Manual) 0.1 Eosinophils # (Manual) 0.1 Basophils # (Manual) 0.1 Metamyelocytes # 0.1 Platelet Estimate DECREASED Plt Morphology Comment NORMAL RBC Morphology NOTED Sodium Potassium Chloride Carbon Dioxide Anion Gap BUN Creatinine Estim Creat Clear Calc Estimated GFR Random Glucose Calcium Blood Type O Positive Antibody Screen NEGATIVE Crossmatch See Detail See Detail 04/19/21 06:11 WBC RBC Hgb Hct MCV MCH MCHC RDW Plt Count MPV Immature Gran % (Auto) Neut % (Auto) Lymph % (Auto) [place] % (Auto) Eos % (Auto) Baso % (Auto) Lymph # (Auto) [place] # (Auto) Eos # (Auto) Baso # (Auto) Abs Immat Gran (auto) Absolute Neuts (auto) Absolute Nucleated RBC Nucleated RBC % (auto) Neutrophils % (Manual) Band Neutrophils % Lymphocytes % (Manual) Monocytes % (Manual) Eosinophils % (Manual) Basophils % (Manual) Metamyelocytes % Abs Neuts (Manual) Lymphocytes # (Manual) Monocytes # (Manual) Eosinophils # (Manual) Basophils # (Manual) Metamyelocytes # Platelet Estimate Plt Morphology Comment RBC Morphology Sodium 133 L Potassium 4.4 Chloride 101 Carbon Dioxide 25 Anion Gap 11 L BUN 16 Creatinine 1.30 Estim Creat Clear Calc 50.7 Estimated GFR 51 Random Glucose 82 Calcium 8.6 Blood Type Antibody Screen Crossmatch Microbiology Microbiology Results: Microbiology 04/16/21 16:53 Pleural Fluid Gram Stain - Final 04/16/21 16:53 Pleural Fluid Routine Culture - Final No growth after 2 days 04/16/21 16:53 Pleural Fluid Anaerobic Culture - Preliminary No growth to date. 04/08/21 16:00 Pleural Fluid Gram Stain - Final 04/08/21 16:00 Pleural Fluid Routine Culture - Final No growth after 2 days 04/08/21 16:00 Pleural Fluid Anaerobic Culture - Final NO GROWTH AFTER 5 DAYS 04/07/21 08:23 Blood - Venous Blood Culture - Final No growth after 5 days. 04/07/21 08:12 Blood - Venous Blood Culture - Final No growth after 5 days. 03/31/21 21:53 Blood - Venous Blood Culture - Final Staphylococcus aureus Strep dysgalactiae ssp equisim 03/31/21 21:53 Blood - Venous Blood Culture - Final Staphylococcus aureus Strep dysgalactiae ssp equisim 04/01/21 Unknown Urine clean catch - Urine fxo top Urine Culture - Final Procedures Date of Service Date of Service: 04/19/21 Assessment & Plan Assessment and plan (1) MELITON (acute kidney injury): Status: Acute (2) Hyponatremia: Status: Acute Assessment and Plan: Sna continues to improve MELITON due to renal hypoperfusion and tubular stress resolving prolonged tubular stress causing ATN low c3 and c4 but kidney function overall better (peak SCr 2.5 mg/dl) no need for kidney biopsy hyponatremia c/w SIADH related to ongoing pain and lung involvement REC continue to restrict free water intake follow kidney function and electrolytes Time Spent With Patient Time: Total time spent is greater than 50% in coordination of care (as documented) at patient's floor/unit and/or counseling patient: Progress Note: Quality Stroke Does the patient have a stroke diagnosis?: No
--- NOTE | 2021-04-19 11:07 | HO.PM.IMPN ---
Subjective Subjective Date of Service: 04/19/21 Interval History: Feels significantly better this morning, well-controlled pain no shortness of breath at rest, some shortness of breath with walking to bathroom, no lightheadedness , no dizziness, no overnight fever chills or rigors. Review of Systems Review of Systems: Yes all other systems are reviewed and are negative Physical Exam Vital Signs: Vital Signs: Last Vital Signs Temp 96.9 F 04/19/21 08:00 Pulse 98 04/19/21 08:00 Resp 18 04/19/21 08:00 BP 119/61 04/19/21 08:00 Pulse Ox 97 04/19/21 08:00 BMI result Body Mass Index 24.2 Gen:? Awake alert,?pale, no acute distress Neck: supple, right IJ catheter in place Lungs:?diminished breath sounds ,no rhonchi, no respiratory distress,? chest tube to suction with persistent serosanguinous drainage Heart: regular rate and rhythm Abd: soft, non-tender, non-distended Ext: no edema Skin: warm/well-perfused,pallor, R forearm ulcer with dressing in place Neuro: alert and oriented x3, Musculoskeletal no deformity Psych appropriate affect ? Objective Data Active Medications Acetaminophen (Acetaminophen 325 Mg Tablet) 650 mg PO Q6H PRN PRN Reason: Fever Last Admin: 04/18/21 20:20 Dose: 650 mg Documented by: VALENTIN Benzonatate (Benzonatate 100 Mg Capsule) 100 mg PO TID PRN PRN Reason: Cough Last Admin: 04/17/21 16:09 Dose: 100 mg Documented by: TON Guaifenesin/Dextromethorphan (Guaifenesin Dm 200/20/10 Ml 10 Ml Syrup) 10 ml PO QID [facility] Last Admin: 04/19/21 09:18 Dose: 10 ml Documented by: SATURNINO Hydroxyzine HCl (Hydroxyzine Hcl 25 Mg Tablet) 25 mg PO Q6H PRN PRN Reason: Anxiety Last Admin: 04/19/21 04:55 Dose: 25 mg Documented by: NICOLA Cefazolin Sodium/Dextrose (Ancef) 2 gm in 50 mls @ 100 mls/hr IV Q8H [facility] Last Infusion: 04/19/21 10:20 Dose: 0 mls/hr Documented by: SATURNINO Melatonin (Melatonin 3 Mg Tablet) 6 mg PO BEDTIME PRN PRN Reason: Insomnia Last Admin: 04/17/21 20:01 Dose: 6 mg Documented by: TON Methadone HCl (Methadone Hcl 20 Mg/2 Ml Oral.Conc) 55 mg PO DAILY [facility] Last Admin: 04/19/21 09:18 Dose: 55 mg Documented by: SATURNINO Nicotine Polacrilex (Nicotine Polacrilex 2 Mg Gum) 2 mg BUCCAL Q2H PRN PRN Reason: Nicotine Cravings Last Admin: 04/04/21 05:47 Dose: 2 mg Documented by: ODRISM Oxycodone HCl (Oxycodone Hcl Immed Release 5 Mg Tablet) 5 mg PO Q4H PRN PRN Reason: Pain, Moderate (Pain Scale 4-6 Last Admin: 04/19/21 04:55 Dose: 5 mg Documented by: NICOLA Pharmacy Consult (Consult Rx Perform Med Rec) 1 each MISCELLANE ONCE PRN PRN Reason: Consult order Senna (Sennosides 8.6 Mg Tablet) 17.2 mg PO BEDTIME PRN PRN Reason: Constipation Sodium Chloride (0.9 % Sodium Chloride Flush 3 Ml Syringe) 3 ml IVFLUSH QSHIFT [facility] Last Admin: 04/19/21 09:29 Dose: Not Given Documented by: SATURNINO Non-Admin Reason: IV Running Labs CBC & Chem 7: 04/19/21 06:11 04/19/21 06:11 Labs: Laboratory Results - last 24 hr 04/13/21 04/18/21 04/19/21 04:38 10:25 06:11 MCV 89.8 MCH 28.5 MCHC 31.7 RDW 16.6 H Plt Count 118 L MPV 9.8 Immature Gran % (Auto) Cancelled Neut % (Auto) Cancelled Lymph % (Auto) Cancelled [place] % (Auto) Cancelled Eos % (Auto) Cancelled Baso % (Auto) Cancelled Lymph # (Auto) Cancelled [place] # (Auto) Cancelled Eos # (Auto) Cancelled Baso # (Auto) Cancelled Abs Immat Gran (auto) Cancelled Absolute Neuts (auto) Cancelled Absolute Nucleated RBC 0.000 Nucleated RBC % (auto) 0.0 Neutrophils % (Manual) 88 H Band Neutrophils % 3 Lymphocytes % (Manual) 5 L Monocytes % (Manual) 1 L Eosinophils % (Manual) 1 Basophils % (Manual) 1 Metamyelocytes % 1 Abs Neuts (Manual) 13.4 H Lymphocytes # (Manual) 0.7 L Monocytes # (Manual) 0.1 Eosinophils # (Manual) 0.1 Basophils # (Manual) 0.1 Metamyelocytes # 0.1 Platelet Estimate DECREASED Plt Morphology Comment NORMAL RBC Morphology NOTED Anion Gap Estim Creat Clear Calc Estimated GFR Random Glucose Calcium Blood Type O Positive Antibody Screen NEGATIVE Crossmatch See Detail See Detail 04/19/21 06:11 MCV MCH MCHC RDW Plt Count MPV Immature Gran % (Auto) Neut % (Auto) Lymph % (Auto) [place] % (Auto) Eos % (Auto) Baso % (Auto) Lymph # (Auto) [place] # (Auto) Eos # (Auto) Baso # (Auto) Abs Immat Gran (auto) Absolute Neuts (auto) Absolute Nucleated RBC Nucleated RBC % (auto) Neutrophils % (Manual) Band Neutrophils % Lymphocytes % (Manual) Monocytes % (Manual) Eosinophils % (Manual) Basophils % (Manual) Metamyelocytes % Abs Neuts (Manual) Lymphocytes # (Manual) Monocytes # (Manual) Eosinophils # (Manual) Basophils # (Manual) Metamyelocytes # Platelet Estimate Plt Morphology Comment RBC Morphology Anion Gap 11 L Estim Creat Clear Calc 50.7 Estimated GFR 51 Random Glucose 82 Calcium 8.6 Blood Type Antibody Screen Crossmatch Microbiology Microbiology Results: Microbiology 04/16/21 16:53 Gram Stain - Final Pleural Fluid Routine Culture - Final No growth after 2 days Anaerobic Culture - Preliminary No growth to date. Assessment and Plan (1) Hyponatremia: Status: Acute (2) Pleural effusion: Status: Acute (3) Septic embolism: Status: Acute (4) Infective endocarditis: Status: Acute (5) Cocaine use disorder, severe, dependence: Status: Acute (6) Opioid use disorder, severe, dependence: Status: Acute (7) Acute respiratory failure with hypoxia: Status: Acute (8) Transaminitis: Status: Acute Assessment and Plan: 25yo F with history of IV heroin + cocaine abuse, recent RUE cellulitis with open wound,p/w SOB and admitted for severe sepsis found to be bacteremic with TV endocarditis complicated by cavitary septic emboli + bilateral loculated pleural effusions # severe sepsis/ MSSA + Streptococcus dysgalactiae bacteremia/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 No fevers in last 3 days, persistent productive cough with raad phlegm, less shortness of breath ? lactate normalized, WBC trending up patient afebrile and clinically stable question reactive will follow CBC ? s/p 7d of vancomycin, now on cefazolin 2g IV q8h day #, repeat blood culture 04/07 clear. ? Continue current treatment right IJ catheter placed by IR 04/16 due to no IV access. ? # loculated B pleural effusions/# small L pneumothorax Patient feeling better with less shortness of breath, no overnight fever chills, no complain of pain at chest tube site. ? Right chest tube placed 04/16? by IR, 200 mL of fluid removed, right chest tube with persistent serosanguineous drainage, repeat chest x-ray today shows hydropneumothorax and bilateral lung disease unchanged, but significant decrease in right-sided pleural fluid being followed closely by thoracic surgery right-sided chest tube on - low wall suction, likely will help to expand lung ? status post 3d of chemical decortication with intrapleural tPA 04/10-04/12 with decrease in pleural effusion left side,left chest tube pulled on 04/15 ? Right-sided pleural fluid gm stain and culture sensitivity negative, likely since patient on antibiotic for several days # anemia of chronic inflammation - status post 6 units of packed RBC ( tranfused 3u pRBCs 04/03/21 + 2u pRBCs 04/07/21; 1 unit packed RBC on 04/13 ) and 1 unit on 04/18 Repeat hematocrit today is 26.5 and hemoglobin 8.4 ? follow CBC in 1-2 days # coagulopathy - vit K 10 mg PO given; INR 1.6 # acute hypoxic respiratory failure - oxygenation stable on 2 L, wean O2 as tolerated # thrombocytopenia - likely due to sepsis + HCV, resolved # MAT-associated wound - wound care # MELITON - SCr normalized, avoid nephrotoxins + continue to monitor # hypoNa - mild, 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, sodium improved to 133 # transaminasemia - resolved, likely due to sepsis # HCV - Ab positive, viral load not detected, HBV immune; HIV negative # opioid use disorder - continue methadone 55 mg/d; Addiction Medicine following closely, recommend to continue current doses since patient noted to be somnolent # cocaine abuse - prn hydroxyzine, CARE Team # tobacco abuse - NRT # protein-calorie malnutrition - Ensure supplementation # VTE ppx - SCDs # dispo declined rehab facility earlier will reassess discharge plan once medical ready for discharge, patient seen by psych and is competent to make decisions. ?? Quality Stroke Does the patient have a stroke diagnosis?: No VTE Prior VTE?: No VTE Risk Level:: Medical - moderate - high VTE Device Contraindication: Treatment Not Indicated VTE Drug Contraindication: N/A - Med Ordered
[2021-04-19 12:00] VITALS: BP 131/69; PULSE 101; RESP 18; TEMP 36.8; O2SAT 95
--- NOTE | 2021-04-19 14:35 | PM.PNTS ---
Subjective Subjective Date of Service: 04/19/21 Interval history: Patient was seen and examined this afternoon. her right-sided chest tube had remained on -20 low wall suction overnight with approximately 200 cc of what is now serous fluid output over past 24 hours. She denies any shortness of breath rest however does admit to dyspnea on exertion when ambulating from out of chair to bathroom. Continues have a cough which is productive of raad colored sputum. Denies any concerning symptoms such hemoptysis, fever or chills. Remaining 12 point review of system negative Physical Exam Vital Signs: Vital Signs: Last Vital Signs Temp 98.3 F 04/19/21 12:00 Pulse 101 H 04/19/21 12:00 Resp 18 04/19/21 12:00 BP 131/69 04/19/21 12:00 Pulse Ox 95 04/19/21 12:00 BMI result Body Mass Index 24.2 Const: General: cooperative, comfortable, no acute distress, alert, awake and ill appearing Nutritional Appearance: well nourished and overweight Orientation/consciousness: oriented to person, oriented to place, oriented to time and patient oriented x3 HENMT: Head: Yes normal to inspection, Yes normocephalic and Yes atraumatic Face and sinus: Yes normal facial exam Mouth: other (Dry, crackled lips) Eyes: General: appearance normal, both eyes and all related structures Periorbital: periorbital findings normal Conjunctivae: conjunctivae normal Sclerae: sclerae normal Pupils: Equal, round and reactive pupils present and Pupil accommodation reflex normal EOM: EOMs intact bilaterally Neck: Neck: Yes normal visual inspection, Yes full ROM, Yes no lymphadenopathy, Yes trachea midline, Yes supple, No lymphadenopathy, No tender and Yes no JVD Lymphatic: no lymphadenopathy noted Chest: Other: Right-sided chest tube small bore pigtail catheter remains in place attached to -20 low wall suction approximately 950 cc in [facility] total and 200 cc output over past 24 hrs while on -20 low wall sxn. No detectable chest tube air leak. Chest palpation & inspection: normal inspection of the chest Resp: Effort & Inspection: normal respiratory effort, able to speak in complete sentences, normal respiratory pattern, no audible wheezes, no cough, no stridor, not tachypneic and other (Patient speaking in full sentences on room air. Chest tube to *waterseal/landa) Auscultation: crackles (bilateral bases, dim to right lung base) and diminished lung sounds Cardio: Jugular venous distension: no JVD Palpation: normal PMI Rate: regular rate Rhythm: regular rhythm Heart sounds: S1 normal heart sound present, S2 normal heart sound present, no click, no gallops, no murmurs and no rubs Peripheral pulses: Peripheral pulses 2+ throughout GI: Inspection: Yes normal to inspection Palpation (GI): Soft to palpation and nontender Auscultation: normal bowel sounds Back/Spine/Pelvis: Thoracic/Lumbar Spine: thoracic and lumbar spine normal to inspection Skin: General skin exam: no rashes or lesions noted and dry skin Lesions: no lesions Rashes: no rashes Neuro: General: oriented to person, oriented to place, oriented to time, patient oriented x3, gait normal, moves all extremities and Unable to assess gait Cranial nerves: Yes Equal, round and reactive pupils present Speech: No Abnormal speech present Gait exam (Neuro): Unable to assess gait Motor exam (neuro): 5/5 motor strength present throughout Extrem: General: Yes normal to inspection, Yes capillary refill normal, Yes no clubbing, cyanosis or edema, Yes no pedal edema and Yes no calf tenderness Psych: Appearance: grossly normal and well kempt Mental Status: mental status grossly normal Speech and movement: Normal speech and movement present and Clear speech present Affect: normal affect Attitude: cooperative Thought process: Normal thought process present Thought content: Normal thought content present Procedures Date of Service Date of Service: 04/19/21 Progress Note: A&P Assessment and plan (1) Pleural effusion: Status: Acute Assessment and Plan: 25 year old female with IVDA (heroin, cocaine) admitted to [facility] with severe sepsis with anemia and coagulopathy treated with PRBc and vitamin K, bacteremia, tricuspid valve endocarditis, septic pulmonary emboli, bilateral pleural effusion, thrombocytopenia, and hyponatremia. +HCV ab. Loculated left pleural effusion s/p IR pigtail catheter placement on 04/08/21. Morning chest x-ray reveals improvement of left-sided pleural effusion s/p tPA administration x 3 days. left-sided pigtail catheter was removed without incident On 04/15/2021 a dry occlusive dressing put in place. Right pleural effusion right-sided pigtail catheter placed on 04/16. Thoracentesis yielded approximately 200 cc of serosanguineous fluid output. Pleural fluid being sent to lab for pleural fluid analysis and culture which is neg likely due to long course of antibiotics. right-sided chest tube remained on Negative twenty low wall suction overnight with approximately 200 cc of now sanguinous fluid output or past 24 hours with 950 cc cc of serosanguineous fluid in [facility] reservoir. Her chest tube has remained to -20 low wall suction after chest x-ray revealed a large decrease in right-sided pleural fluid however were pleural fluid previously resided there is a small right lateral pneumothorax likely trapped lung. Chest tube to be placed to water-seal tonight at midnight Plan for possible removal of right-sided pigtail catheter/chest tube tomorrow a.m.. Chest x-ray for tomorrow a.m. Case discussed with Dr. Newton. (2) Infective endocarditis: Status: Acute (3) Septic embolism: Status: Acute (4) Cocaine use disorder, severe, dependence: Status: Acute (5) Opioid use disorder, severe, dependence: Status: Acute (6) Bacteremia: Status: Acute (7) Acute hyponatremia: Status: Acute (8) MELITON (acute kidney injury): Status: Acute (9) Pneumonia: Status: Acute (10) Thrombocytopenia: Status: Acute Fall Risk Details Current Medications: Current Medications Acetaminophen (Acetaminophen 325 Mg Tablet) 650 mg PO Q6H PRN PRN Reason: Fever Last Admin: 04/18/21 20:20 Dose: 650 mg Documented by: Benzonatate (Benzonatate 100 Mg Capsule) 100 mg PO TID PRN PRN Reason: Cough Last Admin: 04/17/21 16:09 Dose: 100 mg Documented by: Guaifenesin/Dextromethorphan (Guaifenesin Dm 200/20/10 Ml 10 Ml Syrup) 10 ml PO QID CORAZON Last Admin: 04/19/21 13:54 Dose: 10 ml Documented by: Hydroxyzine HCl (Hydroxyzine Hcl 25 Mg Tablet) 25 mg PO Q6H PRN PRN Reason: Anxiety Last Admin: 04/19/21 04:55 Dose: 25 mg Documented by: Cefazolin Sodium/Dextrose (Ancef) 2 gm in 50 mls @ 100 mls/hr IV Q8H REPLACED BY [facility] Last Infusion: 04/19/21 10:20 Dose: Infused Documented by: Melatonin (Melatonin 3 Mg Tablet) 6 mg PO BEDTIME PRN PRN Reason: Insomnia Last Admin: 04/17/21 20:01 Dose: 6 mg Documented by: Methadone HCl (Methadone Hcl 20 Mg/2 Ml Oral.Conc) 55 mg PO DAILY REPLACED BY [facility] Last Admin: 04/19/21 09:18 Dose: 55 mg Documented by: Nicotine Polacrilex (Nicotine Polacrilex 2 Mg Gum) 2 mg BUCCAL Q2H PRN PRN Reason: Nicotine Cravings Last Admin: 04/04/21 05:47 Dose: 2 mg Documented by: Oxycodone HCl (Oxycodone Hcl Immed Release 5 Mg Tablet) 5 mg PO Q4H PRN PRN Reason: Pain, Moderate (Pain Scale 4-6 Last Admin: 04/19/21 13:54 Dose: 5 mg Documented by: Pharmacy Consult (Consult Rx Perform Med Rec) 1 each MISCELLANE ONCE PRN PRN Reason: Consult order Senna (Sennosides 8.6 Mg Tablet) 17.2 mg PO BEDTIME PRN PRN Reason: Constipation Sodium Chloride (0.9 % Sodium Chloride Flush 3 Ml Syringe) 3 ml IVFLUSH QSHIFT REPLACED BY [facility] Last Admin: 04/19/21 09:29 Dose: Not Given Documented by: Time Spent With Patient Time: Total time spent is greater than 50% in coordination of care (as documented) at patient's floor/unit and/or counseling patient: Time with patient: 25 - 35 minutes Quality Stroke Does the patient have a stroke diagnosis?: No VTE Prior VTE?: No VTE Risk Level:: Medical - moderate - high VTE Device Contraindication: Treatment Not Indicated VTE Drug Contraindication: N/A - Med Ordered
--- NOTE | 2021-04-19 15:12 | MHC.RECOVSUP ---
Recovery Support note: This life insurance underwriter met with patient to discuss methadone dosing and withdrawal symptoms. Patient reports no complaints at this time. Patient was knitting during consultation while watching TV. Patient expressed interest in additional ways to pass the time. This life insurance underwriter provided patient with crayons and coloring pages. Encouraged patient to reach out to staff if she has additional needs. Discussed case with Jinny Wright NP.
[2021-04-19 16:00] VITALS: BP 122/61; PULSE 100; RESP 17; TEMP 37.1; O2SAT 96
[2021-04-19 19:59] VITALS: BP 131/63; PULSE 95; RESP 18; TEMP 36.9; O2SAT 94
--- NOTE | 2021-04-19 20:38 | PM.CNPUL ---
History of Present Illness History of Present Illness Consult date: 04/19/21 Chief complaint: PNA, endocarditis Narrative: This is an in patient pulmonary consultation. The patient is a 25-year-old female with a past medical history of right forearm cellulitis /open wound; history of IV drug abuse -abuses IV heroin and IV cocaine; presented to the hospital today with a chief complaint of shortness of breath.?Patient reported that over the past 1 week to 10 days she has not been feeling well; complains of subjective fevers and chills, shortness of breath which worsens on exertion; complains of pleuritic chest pain intermittent in nature nonradiating; complains of dry cough; had few episodes of diarrhea; denies any new skin rash; denies snorting IV drugs. In the ER team patient on presentation noted to be mildly tachypneic, wheezing, complaint of? pleuritic chest pain; EKG nonischemic; chest x-ray showed multifocal pneumonia /patchy opacities. The Patient's D-dimer was elevated to 3263 - VQ scan intermediate probability. CTA with cavitary pneumonia and loculated pleural effusion. s/p small bore chest tube placed. Now with minimal drainage. ECHO +endocarditis with TR vegetation and bx+straph and strep. pleural fluid negative cultures. chest drain now on water seal. Review of Systems Constitutional: Constitutional: Reports fatigue, Reports malaise, Denies night sweats and Reports weakness ENT: Denies change in voice, Denies lip swelling, Denies mouth pain, Reports nasal congestion, Reports nasal discharge and Denies tongue swelling Cardiovascular: Cardiovascular: Denies chest pain and Reports dyspnea Respiratory: Respiratory: Reports cough and Reports dyspnea Gastrointestinal: Gastrointestinal: Denies abdominal pain Musculoskeletal: Musculoskeletal: Denies no additional musculoskeletal complaints Neurologic: Denies Neuro-related abnormal movements and Reports weakness Psychiatric: Psychiatric: Denies no additional psychiatric complaints Endocrine: Endocrine: Reports fatigue Hematologic/Lymphatic: Hematologic/Lymphatic: Denies easy bleeding and Denies lymphadenopathy Allergic/Immunologic: Allergic/Immunologic: Denies lip swelling and Denies tongue swelling PMFSH Past Medical History Medical History (Updated 04/17/21 @ 09:37 by Lawrence Jones MD) Bacteremia Substance abuse Family History Family history: reviewed and not pertinent Social History Social History Household Members: None Housing: Other Housing Other:: homeless but states staying with friends Do you presently have visiting nurse or other home services: No Unable to assess alcohol history related to: Unable to respond and Refusing to respond Alcohol intake: never Patient Tobacco Use Status: Current everyday Tobacco user Substance Use Type: Crack/Cocaine, Heroin, IV Drugs and Methamphetamine service: No Current occupational status: unemployed Meds Allergies Allergy/AdvReac Type Severity Reaction Status Date / Time No Known Allergies Allergy Verified 05/12/20 05:11 Active Medications: Current Medications Acetaminophen (Acetaminophen 325 Mg Tablet) 650 mg PO Q6H PRN PRN Reason: Fever Last Admin: 04/18/21 20:20 Dose: 650 mg Documented by: Benzonatate (Benzonatate 100 Mg Capsule) 100 mg PO TID PRN PRN Reason: Cough Last Admin: 04/17/21 16:09 Dose: 100 mg Documented by: Guaifenesin/Dextromethorphan (Guaifenesin Dm 200/20/10 Ml 10 Ml Syrup) 10 ml PO QID [facility] Last Admin: 04/19/21 20:15 Dose: 10 ml Documented by: Hydroxyzine HCl (Hydroxyzine Hcl 25 Mg Tablet) 25 mg PO Q6H PRN PRN Reason: Anxiety Last Admin: 04/19/21 04:55 Dose: 25 mg Documented by: Cefazolin Sodium/Dextrose (Ancef) 2 gm in 50 mls @ 100 mls/hr IV Q8H [facility] Last Infusion: 04/19/21 18:10 Dose: Infused Documented by: Melatonin (Melatonin 3 Mg Tablet) 6 mg PO BEDTIME PRN PRN Reason: Insomnia Last Admin: 04/17/21 20:01 Dose: 6 mg Documented by: Methadone HCl (Methadone Hcl 20 Mg/2 Ml Oral.Conc) 55 mg PO DAILY [facility] Last Admin: 04/19/21 09:18 Dose: 55 mg Documented by: Nicotine Polacrilex (Nicotine Polacrilex 2 Mg Gum) 2 mg BUCCAL Q2H PRN PRN Reason: Nicotine Cravings Last Admin: 04/04/21 05:47 Dose: 2 mg Documented by: Oxycodone HCl (Oxycodone Hcl Immed Release 5 Mg Tablet) 5 mg PO Q4H PRN PRN Reason: Pain, Moderate (Pain Scale 4-6 Last Admin: 04/19/21 13:54 Dose: 5 mg Documented by: Pharmacy Consult (Consult Rx Perform Med Rec) 1 each MISCELLANE ONCE PRN PRN Reason: Consult order Senna (Sennosides 8.6 Mg Tablet) 17.2 mg PO BEDTIME PRN PRN Reason: Constipation Sodium Chloride (0.9 % Sodium Chloride Flush 3 Ml Syringe) 3 ml IVFLUSH QSHIFT [place] Last Admin: 04/19/21 17:08 Dose: 3 ml Documented by: Home Medications Medication Instructions Recorded Confirmed Last Taken Type No Known Home Meds 04/01/21 04/01/21 Unknown History Physical Exam Vital Signs: Vital Signs: Last Vital Signs Temp 98.4 F 04/19/21 19:59 Pulse 95 04/19/21 19:59 Resp 18 04/19/21 19:59 BP 131/63 04/19/21 19:59 Pulse Ox 94 04/19/21 19:59 BMI result Body Mass Index 24.2 Const: General: ill appearing, lethargic and tired appearing Orientation/consciousness: lethargic Neck: Neck: Yes normal visual inspection, Yes full ROM and Yes no lymphadenopathy Chest: Chest palpation & inspection: normal inspection of the chest Resp: Auscultation: diminished lung sounds Cardio: Rate: regular rate Rhythm: regular rhythm Heart sounds: S1 normal heart sound present and S2 normal heart sound present GI: Palpation (GI): Soft to palpation and nontender Auscultation: normal bowel sounds Skin: General skin exam: rashes and/or lesions noted Results Laboratory Findings CBC and BMP: 04/19/21 06:11 04/19/21 06:11 ABG, PT/INR, D-dimer: PT/INR, D-dimer PT 18.0 SEC (9.9-13.0) H 04/13/21 04:38 INR 1.6 (0.9-1.1) H 04/13/21 04:38 Abnormal lab findings: Abnormal Labs 03/31/21 03/31/21 03/31/21 21:53 21:53 21:53 WBC 11.8 H RBC 3.65 L Hgb 9.1 L Hct 26.4 L MCV 72.3 L MCH 24.9 L RDW Plt Count 30 L MPV Immature Gran % (Auto) Lymph % (Auto) Lymph # (Auto) Abs Immat Gran (auto) Absolute Nucleated RBC Neutrophils % (Manual) Band Neutrophils % Lymphocytes % (Manual) 13 L Monocytes % (Manual) 12 H Abs Neuts (Manual) 8.9 H Lymphocytes # (Manual) Monocytes # (Manual) 1.4 H Basophils # (Manual) ESR Haptoglobin PT 18.9 H INR 1.6 H Sodium 123 L Chloride 89 L Carbon Dioxide 17 L Anion Gap 22 H BUN 83 H Creatinine 2.51 H Random Glucose Osmolality Lactic Acid Lactic Acid Fup @ 2Hr Calcium 7.8 L D Ferritin Total Bilirubin Direct Bilirubin 0.7 H AST 142 H ALT 65 H Lactate Dehydrogenase Total Creatine Kinase 14 L C-Reactive Protein B-Natriuretic Peptide Total Protein Albumin 2.4 L D Urine Blood Ur Leukocyte Esterase Urine RBC Urine WBC Urine Osmolality U Random Total Protein Vancomycin Trough Random Vancomycin Urine Opiates Screen Urine Fentanyl Screen Ur Phencyclidine Scrn Urine Cocaine Screen Complement C3 Complement C4 Hepatitis C Ab (EIA) Crossmatch 03/31/21 04/01/21 04/01/21 21:53 00:41 00:41 WBC RBC Hgb Hct MCV MCH RDW Plt Count MPV Immature Gran % (Auto) Lymph % (Auto) Lymph # (Auto) Abs Immat Gran (auto) Absolute Nucleated RBC Neutrophils % (Manual) Band Neutrophils % Lymphocytes % (Manual) Monocytes % (Manual) Abs Neuts (Manual) Lymphocytes # (Manual) Monocytes # (Manual) Basophils # (Manual) ESR Haptoglobin PT INR Sodium Chloride Carbon Dioxide Anion Gap BUN Creatinine Random Glucose Osmolality Lactic Acid 3.2 H* Lactic Acid Fup @ 2Hr 2.1 H* Calcium Ferritin Total Bilirubin Direct Bilirubin AST ALT Lactate Dehydrogenase Total Creatine Kinase C-Reactive Protein B-Natriuretic Peptide Total Protein Albumin Urine Blood Ur Leukocyte Esterase Urine RBC Urine WBC Urine Osmolality U Random Total Protein Vancomycin Trough Random Vancomycin Urine Opiates Screen Urine Fentanyl Screen Ur Phencyclidine Scrn Urine Cocaine Screen Complement C3 Complement C4 Hepatitis C Ab (EIA) Reactive H Crossmatch 04/01/21 04/01/21 04/01/21 00:41 01:58 01:58 WBC RBC Hgb Hct MCV MCH RDW Plt Count MPV Immature Gran % (Auto) Lymph % (Auto) Lymph # (Auto) Abs Immat Gran (auto) Absolute Nucleated RBC Neutrophils % (Manual) Band Neutrophils % Lymphocytes % (Manual) Monocytes % (Manual) Abs Neuts (Manual) Lymphocytes # (Manual) Monocytes # (Manual) Basophils # (Manual) ESR Haptoglobin PT INR Sodium 126 L Chloride Carbon Dioxide 17 L Anion Gap BUN 79 H Creatinine 2.08 H Random Glucose Osmolality Lactic Acid Lactic Acid Fup @ 2Hr Calcium 6.9 L D Ferritin Total Bilirubin Direct Bilirubin AST ALT Lactate Dehydrogenase Total Creatine Kinase C-Reactive Protein B-Natriuretic Peptide Total Protein Albumin Urine Blood 2+ H Ur Leukocyte Esterase 2+ H Urine RBC 10-14 H Urine WBC 30-49 H Urine Osmolality U Random Total Protein Vancomycin Trough Random Vancomycin Urine Opiates Screen POSITIVE H Urine Fentanyl Screen POSITIVE H Ur Phencyclidine Scrn POSITIVE H Urine Cocaine Screen POSITIVE H Complement C3 Complement C4 Hepatitis C Ab (EIA) Crossmatch 04/01/21 04/01/21 04/01/21 01:58 03:20 03:20 WBC RBC 3.28 L Hgb 8.1 L Hct 24.0 L MCV 73.2 L MCH 24.7 L RDW Plt Count 23 L MPV Immature Gran % (Auto) 2.5 H Lymph % (Auto) 14.6 L Lymph # (Auto) 0.7 L Abs Immat Gran (auto) 0.12 H Absolute Nucleated RBC Neutrophils % (Manual) Band Neutrophils % Lymphocytes % (Manual) Monocytes % (Manual) Abs Neuts (Manual) Lymphocytes # (Manual) Monocytes # (Manual) Basophils # (Manual) ESR Haptoglobin PT INR Sodium 127 L Chloride Carbon Dioxide 16 L Anion Gap BUN 74 H Creatinine 1.84 H Random Glucose 142 H Osmolality Lactic Acid Lactic Acid Fup @ 2Hr Calcium 7.5 L D Ferritin Total Bilirubin Direct Bilirubin AST ALT Lactate Dehydrogenase Total Creatine Kinase C-Reactive Protein B-Natriuretic Peptide Total Protein Albumin Urine Blood Ur Leukocyte Esterase Urine RBC Urine WBC Urine Osmolality 344 L U Random Total Protein Vancomycin Trough Random Vancomycin Urine Opiates Screen Urine Fentanyl Screen Ur Phencyclidine Scrn Urine Cocaine Screen Complement C3 Complement C4 Hepatitis C Ab (EIA) Crossmatch 04/01/21 04/01/21 04/01/21 06:39 08:17 10:54 WBC RBC Hgb Hct MCV MCH RDW Plt Count MPV Immature Gran % (Auto) Lymph % (Auto) Lymph # (Auto) Abs Immat Gran (auto) Absolute Nucleated RBC Neutrophils % (Manual) Band Neutrophils % Lymphocytes % (Manual) Monocytes % (Manual) Abs Neuts (Manual) Lymphocytes # (Manual) Monocytes # (Manual) Basophils # (Manual) ESR Haptoglobin PT INR Sodium Chloride Carbon Dioxide Anion Gap BUN Creatinine 1.50 H Random Glucose Osmolality Lactic Acid 2.1 H* Lactic Acid Fup @ 2Hr Calcium Ferritin Total Bilirubin Direct Bilirubin AST ALT Lactate Dehydrogenase 250 H Total Creatine Kinase C-Reactive Protein B-Natriuretic Peptide Total Protein Albumin Urine Blood Ur Leukocyte Esterase Urine RBC Urine WBC Urine Osmolality U Random Total Protein Vancomycin Trough Random Vancomycin Urine Opiates Screen Urine Fentanyl Screen Ur Phencyclidine Scrn Urine Cocaine Screen Complement C3 Complement C4 Hepatitis C Ab (EIA) Crossmatch 04/01/21 04/01/21 04/01/21 10:54 10:54 19:15 WBC RBC Hgb Hct MCV MCH RDW Plt Count MPV Immature Gran % (Auto) Lymph % (Auto) Lymph # (Auto) Abs Immat Gran (auto) Absolute Nucleated RBC Neutrophils % (Manual) Band Neutrophils % Lymphocytes % (Manual) Monocytes % (Manual) Abs Neuts (Manual) Lymphocytes # (Manual) Monocytes # (Manual) Basophils # (Manual) ESR Haptoglobin 248 H PT INR Sodium 133 L Chloride Carbon Dioxide 19 L Anion Gap BUN 64 H Creatinine Random Glucose 240 H Osmolality Lactic Acid Lactic Acid Fup @ 2Hr Calcium 7.5 L Ferritin Total Bilirubin Direct Bilirubin AST ALT Lactate Dehydrogenase Total Creatine Kinase C-Reactive Protein B-Natriuretic Peptide Total Protein Albumin Urine Blood Ur Leukocyte Esterase Urine RBC Urine WBC Urine Osmolality U Random Total Protein Vancomycin Trough Random Vancomycin Urine Opiates Screen Urine Fentanyl Screen Ur Phencyclidine Scrn Urine Cocaine Screen Complement C3 30 L Complement C4 7 L Hepatitis C Ab (EIA) Crossmatch 04/02/21 04/02/21 04/02/21 05:18 05:18 Unknown WBC 4.6 L RBC 2.96 L Hgb 7.4 L Hct 21.7 L MCV 73.3 L MCH 25.0 L RDW Plt Count 22 L MPV Immature Gran % (Auto) Lymph % (Auto) Lymph # (Auto) Abs Immat Gran (auto) Absolute Nucleated RBC Neutrophils % (Manual) Band Neutrophils % 10 H Lymphocytes % (Manual) 12 L Monocytes % (Manual) Abs Neuts (Manual) Lymphocytes # (Manual) 0.6 L Monocytes # (Manual) Basophils # (Manual) ESR Haptoglobin PT INR Sodium 134 L Chloride Carbon Dioxide 17 L Anion Gap BUN 60 H Creatinine Random Glucose 270 H Osmolality Lactic Acid Lactic Acid Fup @ 2Hr Calcium 7.4 L Ferritin Total Bilirubin Direct Bilirubin AST ALT Lactate Dehydrogenase Total Creatine Kinase C-Reactive Protein B-Natriuretic Peptide Total Protein Albumin Urine Blood Ur Leukocyte Esterase Urine RBC Urine WBC Urine Osmolality U Random Total Protein 17 H Vancomycin Trough Random Vancomycin Urine Opiates Screen Urine Fentanyl Screen Ur Phencyclidine Scrn Urine Cocaine Screen Complement C3 Complement C4 Hepatitis C Ab (EIA) Crossmatch 04/03/21 04/03/21 04/03/21 05:15 05:15 05:15 WBC 4.5 L RBC 2.87 L Hgb 7.1 L Hct 21.4 L MCV 74.6 L MCH 24.4 L RDW Plt Count 30 L D MPV Immature Gran % (Auto) Lymph % (Auto) Lymph # (Auto) Abs Immat Gran (auto) Absolute Nucleated RBC Neutrophils % (Manual) Band Neutrophils % Lymphocytes % (Manual) Monocytes % (Manual) Abs Neuts (Manual) Lymphocytes # (Manual) Monocytes # (Manual) Basophils # (Manual) ESR Haptoglobin PT INR Sodium Chloride 109 H Carbon Dioxide 18 L Anion Gap BUN 31 H Creatinine Random Glucose 232 H Osmolality Lactic Acid Lactic Acid Fup @ 2Hr Calcium 8.1 L D Ferritin 328 H Total Bilirubin Direct Bilirubin AST ALT Lactate Dehydrogenase Total Creatine Kinase C-Reactive Protein B-Natriuretic Peptide Total Protein Albumin Urine Blood Ur Leukocyte Esterase Urine RBC Urine WBC Urine Osmolality U Random Total Protein Vancomycin Trough Random Vancomycin Urine Opiates Screen Urine Fentanyl Screen Ur Phencyclidine Scrn Urine Cocaine Screen Complement C3 Complement C4 Hepatitis C Ab (EIA) Crossmatch 04/03/21 04/03/21 04/04/21 09:15 21:39 08:16 WBC RBC 2.95 L Hgb 7.7 L Hct 22.2 L MCV 75.3 L MCH 26.1 L RDW 16.4 H Plt Count 39 L D MPV Immature Gran % (Auto) Lymph % (Auto) Lymph # (Auto) Abs Immat Gran (auto) Absolute Nucleated RBC 0.020 H Neutrophils % (Manual) 75 H Band Neutrophils % 15 H Lymphocytes % (Manual) 5 L Monocytes % (Manual) Abs Neuts (Manual) Lymphocytes # (Manual) 0.4 L Monocytes # (Manual) Basophils # (Manual) ESR Haptoglobin PT INR Sodium Chloride Carbon Dioxide Anion Gap BUN Creatinine Random Glucose Osmolality Lactic Acid Lactic Acid Fup @ 2Hr Calcium Ferritin Total Bilirubin Direct Bilirubin AST ALT Lactate Dehydrogenase Total Creatine Kinase C-Reactive Protein B-Natriuretic Peptide Total Protein Albumin Urine Blood Ur Leukocyte Esterase Urine RBC Urine WBC Urine Osmolality U Random Total Protein Vancomycin Trough 3.3 L Random Vancomycin Urine Opiates Screen Urine Fentanyl Screen Ur Phencyclidine Scrn Urine Cocaine Screen Complement C3 Complement C4 Hepatitis C Ab (EIA) Crossmatch See Detail 04/04/21 04/04/21 04/04/21 08:16 12:27 12:27 WBC RBC Hgb Hct MCV MCH RDW Plt Count MPV Immature Gran % (Auto) Lymph % (Auto) Lymph # (Auto) Abs Immat Gran (auto) Absolute Nucleated RBC Neutrophils % (Manual) Band Neutrophils % Lymphocytes % (Manual) Monocytes % (Manual) Abs Neuts (Manual) Lymphocytes # (Manual) Monocytes # (Manual) Basophils # (Manual) ESR Haptoglobin PT INR Sodium 128 L 127 L Chloride Carbon Dioxide 18 L Anion Gap 10 L BUN Creatinine Random Glucose Osmolality 273 L Lactic Acid Lactic Acid Fup @ 2Hr Calcium 7.2 L D Ferritin Total Bilirubin 2.5 H Direct Bilirubin 1.5 H AST ALT Lactate Dehydrogenase Total Creatine Kinase C-Reactive Protein B-Natriuretic Peptide Total Protein 5.3 L Albumin 1.8 L D Urine Blood Ur Leukocyte Esterase Urine RBC Urine WBC Urine Osmolality U Random Total Protein Vancomycin Trough Random Vancomycin Urine Opiates Screen Urine Fentanyl Screen Ur Phencyclidine Scrn Urine Cocaine Screen Complement C3 Complement C4 Hepatitis C Ab (EIA) Crossmatch 04/04/21 04/05/21 04/05/21 12:27 08:34 08:34 WBC RBC 2.77 L Hgb 7.5 L Hct 21.8 L MCV 78.7 L MCH RDW 17.1 H Plt Count 56 L D MPV Immature Gran % (Auto) Lymph % (Auto) Lymph # (Auto) Abs Immat Gran (auto) Absolute Nucleated RBC Neutrophils % (Manual) Band Neutrophils % 14 H Lymphocytes % (Manual) 7 L Monocytes % (Manual) Abs Neuts (Manual) 8.4 H Lymphocytes # (Manual) 0.7 L Monocytes # (Manual) Basophils # (Manual) ESR Haptoglobin PT 17.5 H INR 1.5 H Sodium 130 L Chloride Carbon Dioxide 17 L Anion Gap BUN Creatinine Random Glucose Osmolality Lactic Acid Lactic Acid Fup @ 2Hr Calcium 7.8 L D Ferritin Total Bilirubin Direct Bilirubin AST ALT Lactate Dehydrogenase Total Creatine Kinase C-Reactive Protein B-Natriuretic Peptide Total Protein Albumin Urine Blood Ur Leukocyte Esterase Urine RBC Urine WBC Urine Osmolality U Random Total Protein Vancomycin Trough Random Vancomycin Urine Opiates Screen Urine Fentanyl Screen Ur Phencyclidine Scrn Urine Cocaine Screen Complement C3 Complement C4 Hepatitis C Ab (EIA) Crossmatch 04/05/21 04/06/21 04/06/21 19:48 04:35 04:35 WBC RBC 2.72 L Hgb 7.2 L Hct 21.9 L MCV MCH 26.5 L RDW 18.3 H Plt Count 57 L MPV Immature Gran % (Auto) Lymph % (Auto) Lymph # (Auto) Abs Immat Gran (auto) Absolute Nucleated RBC Neutrophils % (Manual) Band Neutrophils % Lymphocytes % (Manual) Monocytes % (Manual) Abs Neuts (Manual) Lymphocytes # (Manual) Monocytes # (Manual) Basophils # (Manual) ESR Haptoglobin PT INR Sodium 130 L Chloride Carbon Dioxide 18 L Anion Gap BUN 18 H Creatinine Random Glucose Osmolality Lactic Acid Lactic Acid Fup @ 2Hr Calcium 7.8 L Ferritin Total Bilirubin 1.1 H Direct Bilirubin 0.7 H AST ALT Lactate Dehydrogenase Total Creatine Kinase C-Reactive Protein B-Natriuretic Peptide Total Protein 6.1 L Albumin 2.4 L D Urine Blood Ur Leukocyte Esterase Urine RBC Urine WBC Urine Osmolality U Random Total Protein Vancomycin Trough Random Vancomycin 10.0 L Urine Opiates Screen Urine Fentanyl Screen Ur Phencyclidine Scrn Urine Cocaine Screen Complement C3 Complement C4 Hepatitis C Ab (EIA) Crossmatch 04/07/21 04/07/21 04/07/21 08:12 08:12 08:12 WBC RBC Hgb Hct MCV MCH RDW Plt Count MPV Immature Gran % (Auto) Lymph % (Auto) Lymph # (Auto) Abs Immat Gran (auto) Absolute Nucleated RBC Neutrophils % (Manual) Band Neutrophils % Lymphocytes % (Manual) Monocytes % (Manual) Abs Neuts (Manual) Lymphocytes # (Manual) Monocytes # (Manual) Basophils # (Manual) ESR Haptoglobin PT 18.0 H INR 1.6 H Sodium 128 L Chloride Carbon Dioxide 21 L Anion Gap 10 L BUN 19 H Creatinine Random Glucose Osmolality Lactic Acid Lactic Acid Fup @ 2Hr Calcium 7.9 L Ferritin Total Bilirubin Direct Bilirubin AST ALT Lactate Dehydrogenase Total Creatine Kinase C-Reactive Protein 14.34 H B-Natriuretic Peptide Total Protein Albumin Urine Blood Ur Leukocyte Esterase Urine RBC Urine WBC Urine Osmolality U Random Total Protein Vancomycin Trough 8.0 L Random Vancomycin Urine Opiates Screen Urine Fentanyl Screen Ur Phencyclidine Scrn Urine Cocaine Screen Complement C3 Complement C4 Hepatitis C Ab (EIA) Crossmatch 04/07/21 04/07/21 04/07/21 08:12 08:12 10:30 WBC 11.7 H RBC 2.39 L Hgb 6.5 L* Hct 19.3 L* MCV MCH RDW 18.4 H Plt Count 64 L MPV Immature Gran % (Auto) Lymph % (Auto) Lymph # (Auto) Abs Immat Gran (auto) Absolute Nucleated RBC Neutrophils % (Manual) Band Neutrophils % Lymphocytes % (Manual) Monocytes % (Manual) Abs Neuts (Manual) Lymphocytes # (Manual) Monocytes # (Manual) Basophils # (Manual) ESR 100 H Haptoglobin PT INR Sodium Chloride Carbon Dioxide Anion Gap BUN Creatinine Random Glucose Osmolality Lactic Acid Lactic Acid Fup @ 2Hr Calcium Ferritin Total Bilirubin Direct Bilirubin AST ALT Lactate Dehydrogenase Total Creatine Kinase C-Reactive Protein B-Natriuretic Peptide Total Protein Albumin Urine Blood Ur Leukocyte Esterase Urine RBC Urine WBC Urine Osmolality U Random Total Protein Vancomycin Trough Random Vancomycin Urine Opiates Screen Urine Fentanyl Screen Ur Phencyclidine Scrn Urine Cocaine Screen Complement C3 Complement C4 Hepatitis C Ab (EIA) Crossmatch See Detail 04/08/21 04/08/21 04/08/21 05:20 05:20 05:20 WBC 13.8 H RBC 2.93 L D Hgb 8.4 L D Hct 25.4 L D MCV MCH RDW 18.6 H Plt Count 81 L D MPV Immature Gran % (Auto) Lymph % (Auto) Lymph # (Auto) Abs Immat Gran (auto) Absolute Nucleated RBC Neutrophils % (Manual) Band Neutrophils % Lymphocytes % (Manual) Monocytes % (Manual) Abs Neuts (Manual) Lymphocytes # (Manual) Monocytes # (Manual) Basophils # (Manual) ESR Haptoglobin PT 16.7 H INR 1.5 H Sodium 128 L Chloride Carbon Dioxide 19 L Anion Gap BUN 20 H Creatinine Random Glucose Osmolality Lactic Acid Lactic Acid Fup @ 2Hr Calcium 7.8 L Ferritin Total Bilirubin Direct Bilirubin AST ALT Lactate Dehydrogenase 248 H Total Creatine Kinase C-Reactive Protein B-Natriuretic Peptide Total Protein Albumin Urine Blood Ur Leukocyte Esterase Urine RBC Urine WBC Urine Osmolality U Random Total Protein Vancomycin Trough Random Vancomycin Urine Opiates Screen Urine Fentanyl Screen Ur Phencyclidine Scrn Urine Cocaine Screen Complement C3 Complement C4 Hepatitis C Ab (EIA) Crossmatch 04/09/21 04/09/21 04/10/21 05:15 05:56 05:17 WBC 13.1 H 12.6 H RBC 2.83 L 2.81 L Hgb 8.0 L 7.8 L Hct 24.1 L 24.0 L MCV MCH RDW 18.4 H 18.4 H Plt Count 110 L D MPV Immature Gran % (Auto) Lymph % (Auto) Lymph # (Auto) Abs Immat Gran (auto) Absolute Nucleated RBC Neutrophils % (Manual) Band Neutrophils % Lymphocytes % (Manual) Monocytes % (Manual) Abs Neuts (Manual) Lymphocytes # (Manual) Monocytes # (Manual) Basophils # (Manual) ESR Haptoglobin PT INR Sodium 128 L Chloride Carbon Dioxide 20 L Anion Gap 11 L BUN 23 H Creatinine Random Glucose Osmolality Lactic Acid Lactic Acid Fup @ 2Hr Calcium 7.9 L Ferritin Total Bilirubin Direct Bilirubin AST ALT Lactate Dehydrogenase Total Creatine Kinase C-Reactive Protein B-Natriuretic Peptide Total Protein Albumin Urine Blood Ur Leukocyte Esterase Urine RBC Urine WBC Urine Osmolality U Random Total Protein Vancomycin Trough Random Vancomycin Urine Opiates Screen Urine Fentanyl Screen Ur Phencyclidine Scrn Urine Cocaine Screen Complement C3 Complement C4 Hepatitis C Ab (EIA) Crossmatch 04/11/21 04/11/21 04/12/21 05:38 05:38 05:36 WBC 12.2 H 12.1 H RBC 2.65 L 2.52 L Hgb 7.5 L 7.1 L Hct 22.9 L 21.9 L MCV MCH RDW 18.1 H 18.0 H Plt Count MPV 8.7 L Immature Gran % (Auto) Lymph % (Auto) Lymph # (Auto) Abs Immat Gran (auto) Absolute Nucleated RBC Neutrophils % (Manual) Band Neutrophils % Lymphocytes % (Manual) Monocytes % (Manual) Abs Neuts (Manual) Lymphocytes # (Manual) Monocytes # (Manual) Basophils # (Manual) ESR Haptoglobin PT INR Sodium 127 L Chloride Carbon Dioxide 21 L Anion Gap 10 L BUN 20 H Creatinine Random Glucose Osmolality Lactic Acid Lactic Acid Fup @ 2Hr Calcium 8.1 L Ferritin Total Bilirubin Direct Bilirubin AST ALT Lactate Dehydrogenase Total Creatine Kinase C-Reactive Protein B-Natriuretic Peptide Total Protein Albumin Urine Blood Ur Leukocyte Esterase Urine RBC Urine WBC Urine Osmolality U Random Total Protein Vancomycin Trough Random Vancomycin Urine Opiates Screen Urine Fentanyl Screen Ur Phencyclidine Scrn Urine Cocaine Screen Complement C3 Complement C4 Hepatitis C Ab (EIA) Crossmatch 04/12/21 04/13/2104/13/21 05:36 04:38 04:38 WBC 11.0 H RBC 2.34 L Hgb 6.6 L* Hct 20.4 L* MCV MCH RDW 18.0 H Plt Count MPV 8.6 L Immature Gran % (Auto) Lymph % (Auto) Lymph # (Auto) Abs Immat Gran (auto) Absolute Nucleated RBC Neutrophils % (Manual) Band Neutrophils % Lymphocytes % (Manual) Monocytes % (Manual) Abs Neuts (Manual) Lymphocytes # (Manual) Monocytes # (Manual) Basophils # (Manual) ESR Haptoglobin PT 18.0 H INR 1.6 H Sodium 129 L Chloride Carbon Dioxide 21 L Anion Gap BUN 19 H Creatinine Random Glucose Osmolality Lactic Acid Lactic Acid Fup @ 2Hr Calcium 8.3 L Ferritin Total Bilirubin Direct Bilirubin AST ALT Lactate Dehydrogenase Total Creatine Kinase C-Reactive Protein B-Natriuretic Peptide Total Protein Albumin Urine Blood Ur Leukocyte Esterase Urine RBC Urine WBC Urine Osmolality U Random Total Protein Vancomycin Trough Random Vancomycin Urine Opiates Screen Urine Fentanyl Screen Ur Phencyclidine Scrn Urine Cocaine Screen Complement C3 Complement C4 Hepatitis C Ab (EIA) Crossmatch 04/13/21 04/14/21 04/15/21 04:38 08:29 05:16 WBC 11.5 H RBC 2.74 L Hgb 7.8 L Hct 23.8 L MCV MCH RDW 17.0 H Plt Count MPV 8.8 L Immature Gran % (Auto) Lymph % (Auto) Lymph # (Auto) Abs Immat Gran (auto) Absolute Nucleated RBC Neutrophils % (Manual) Band Neutrophils % Lymphocytes % (Manual) Monocytes % (Manual) Abs Neuts (Manual) Lymphocytes # (Manual) Monocytes # (Manual) Basophils # (Manual) ESR Haptoglobin PT INR Sodium 131 L Chloride Carbon Dioxide Anion Gap 9 L BUN Creatinine Random Glucose Osmolality Lactic Acid Lactic Acid Fup @ 2Hr Calcium Ferritin Total Bilirubin Direct Bilirubin AST ALT Lactate Dehydrogenase Total Creatine Kinase C-Reactive Protein B-Natriuretic Peptide Total Protein Albumin Urine Blood Ur Leukocyte Esterase Urine RBC Urine WBC Urine Osmolality U Random Total Protein Vancomycin Trough Random Vancomycin Urine Opiates Screen Urine Fentanyl Screen Ur Phencyclidine Scrn Urine Cocaine Screen Complement C3 Complement C4 Hepatitis C Ab (EIA) Crossmatch See Detail 04/18/21 04/18/21 04/18/21 06:52 06:52 10:25 WBC 13.4 H RBC 2.48 L Hgb 6.9 L* Hct 22.2 L MCV MCH RDW 17.1 H Plt Count 122 L D MPV Immature Gran % (Auto) Lymph % (Auto) Lymph # (Auto) Abs Immat Gran (auto) Absolute Nucleated RBC Neutrophils % (Manual) 74 H Band Neutrophils % 6 H Lymphocytes % (Manual) 11 L Monocytes % (Manual) Abs Neuts (Manual) 10.7 H Lymphocytes # (Manual) Monocytes # (Manual) Basophils # (Manual) 0.3 H ESR Haptoglobin PT INR Sodium Chloride Carbon Dioxide Anion Gap BUN Creatinine Random Glucose Osmolality Lactic Acid Lactic Acid Fup @ 2Hr Calcium Ferritin Total Bilirubin Direct Bilirubin AST ALT Lactate Dehydrogenase Total Creatine Kinase C-Reactive Protein B-Natriuretic Peptide 248 H Total Protein Albumin Urine Blood Ur Leukocyte Esterase Urine RBC Urine WBC Urine Osmolality U Random Total Protein Vancomycin Trough Random Vancomycin Urine Opiates Screen Urine Fentanyl Screen Ur Phencyclidine Scrn Urine Cocaine Screen Complement C3 Complement C4 Hepatitis C Ab (EIA) Crossmatch See Detail 04/19/21 04/19/21 06:11 06:11 WBC 14.7 H RBC 2.95 L Hgb 8.4 L D Hct 26.5 L MCV MCH RDW 16.6 H Plt Count 118 L MPV Immature Gran % (Auto) Lymph % (Auto) Lymph # (Auto) Abs Immat Gran (auto) Absolute Nucleated RBC Neutrophils % (Manual) 88 H Band Neutrophils % Lymphocytes % (Manual) 5 L Monocytes % (Manual) 1 L Abs Neuts (Manual) 13.4 H Lymphocytes # (Manual) 0.7 L Monocytes # (Manual) Basophils # (Manual) ESR Haptoglobin PT INR Sodium 133 L Chloride Carbon Dioxide Anion Gap 11 L BUN Creatinine Random Glucose Osmolality Lactic Acid Lactic Acid Fup @ 2Hr Calcium Ferritin Total Bilirubin Direct Bilirubin AST ALT Lactate Dehydrogenase Total Creatine Kinase C-Reactive Protein B-Natriuretic Peptide Total Protein Albumin Urine Blood Ur Leukocyte Esterase Urine RBC Urine WBC Urine Osmolality U Random Total Protein Vancomycin Trough Random Vancomycin Urine Opiates Screen Urine Fentanyl Screen Ur Phencyclidine Scrn Urine Cocaine Screen Complement C3 Complement C4 Hepatitis C Ab (EIA) Crossmatch Microbiology: Microbiology 04/16/21 16:53 Pleural Fluid Gram Stain - Final 04/16/21 16:53 Pleural Fluid Routine Culture - Final No growth after 2 days 04/16/21 16:53 Pleural Fluid Anaerobic Culture - Preliminary No growth to date. 04/08/21 16:00 Pleural Fluid Gram Stain - Final 04/08/21 16:00 Pleural Fluid Routine Culture - Final No growth after 2 days 04/08/21 16:00 Pleural Fluid Anaerobic Culture - Final NO GROWTH AFTER 5 DAYS 04/07/21 08:23 Blood - Venous Blood Culture - Final No growth after 5 days. 04/07/21 08:12 Blood - Venous Blood Culture - Final No growth after 5 days. 03/31/21 21:53 Blood - Venous Blood Culture - Final Staphylococcus aureus Strep dysgalactiae ssp equisim 03/31/21 21:53 Blood - Venous Blood Culture - Final Staphylococcus aureus Strep dysgalactiae ssp equisim 04/01/21 Unknown Urine clean catch - Urine fox top Urine Culture - Final Assessment and Plan (1) Pleural effusion: Status: Acute (2) Pneumonia: Status: Acute (3) Septic embolism: Status: Acute (4) Bacteremia: Status: Acute cavitary pneumonia due to staph and strep hemotagenously from septic emboli due to right sided endocarditis complicated by loculated effusions. REC: continue iv antibiotics Would likely require additional invasive therapeutic interventions. larger chest tube with TPA/DNAse. As per thoracic surgery Procedures Date of Service Date of Service: 04/19/21
[2021-04-20] VITALS: BP 110/60; PULSE 104; RESP 19; TEMP 37.3; O2SAT 96
[2021-04-20] MEDS: ceFAZolin Sodium/Dextrose,Iso 2 GM/50 ML PIGGYBACK IV ×3 (01:24→16:03)
[2021-04-20 04:00] VITALS: BP 116/59; PULSE 88; RESP 18; TEMP 36.3; O2SAT 97
[2021-04-20] MEDS: guaiFENesin DM 200/20/10 ML 10 ML SYRUP PO ×4 (07:52→20:10)
[2021-04-20] MEDS: 0.9 % Sodium Chloride Flush 3 ML SYRINGE IVFLUSH (07:52)
[2021-04-20] MEDS: oxyCODONE HCl Immed Release 5 MG TABLET PO ×3 (07:53→20:17)
[2021-04-20] MEDS: methADONE HCl 20 MG/2 ML ORAL.CONC 55 MG PO (07:53)
[2021-04-20 08:00] VITALS: BP 122/59; PULSE 98; RESP 18; TEMP 37.6; O2SAT 96
--- NOTE | 2021-04-20 10:29 | PM.PNNEP ---
Subjective Subjective Date of Service: 04/20/21 Interval history: Feels significantly better this morning, well-controlled pain no shortness of breath at rest, some shortness of breath with walking to bathroom, no lightheadedness , no dizziness, no overnight fever chills or rigors. Physical Exam Vital Signs: Vital Signs: Last Vital Signs Temp 99.7 F 04/20/21 08:00 Pulse 98 04/20/21 08:00 Resp 18 04/20/21 08:00 BP 122/59 L 04/20/21 08:00 Pulse Ox 96 04/20/21 08:00 BMI result Body Mass Index 24.2 Const: General: cooperative, comfortable, no acute distress, alert, awake, ill appearing, lethargic and tired appearing Nutritional Appearance: well nourished and overweight Orientation/consciousness: oriented to person, oriented to place, oriented to time, patient oriented x3 and lethargic Limitations: no limitations HENMT: Head: Yes normal to inspection, Yes normocephalic and Yes atraumatic Ears: hearing grossly normal bilaterally General nose exam: Normal external nose present Face and sinus: Yes normal facial exam Mouth: Normal oral and palatal mucosa present and other (Dry, crackled lips) Throat: Yes posterior oropharynx normal Eyes: General: appearance normal, both eyes and all related structures Visual Richardson: normal visual richardson by confrontation Alignment and Position: alignment normal Periorbital: periorbital findings normal Conjunctivae: conjunctivae normal Sclerae: sclerae normal Pupils: Equal, round and reactive pupils present and Pupil accommodation reflex normal EOM: EOMs intact bilaterally Neck: Neck: Yes normal visual inspection, Yes full ROM, Yes no lymphadenopathy, Yes trachea midline, Yes supple, No lymphadenopathy, No tender, No tracheal deviation and Yes no JVD Lymphatic: no lymphadenopathy noted Chest: Other: Right-sided chest tube small bore pigtail catheter remains in place attached to -20 low wall suction approximately 950 cc in [facility] total and 200 cc output over past 24 hrs while on -20 low wall sxn. No detectable chest tube air leak. Chest palpation & inspection: normal inspection of the chest and no crepitus Resp: Effort & Inspection: normal respiratory effort, able to speak in complete sentences, normal respiratory pattern, no audible wheezes, no cough, no pursed lip breathing, no respiratory distress, no stridor, not tachypneic, no tracheal deviation and other (Patient speaking in full sentences on room air. Chest tube to *waterseal/landa) Auscultation: crackles (bilateral bases, dim to right lung base) and diminished lung sounds Cardio: Jugular venous distension: no JVD Palpation: normal PMI Rate: regular rate and tachycardic Rhythm: regular rhythm Heart sounds: S1 normal heart sound present, S2 normal heart sound present, no click, no gallops, no murmurs and no rubs Peripheral pulses: Peripheral pulses 2+ throughout GI: Inspection: Yes normal to inspection Palpation (GI): Soft to palpation and nontender Auscultation: normal bowel sounds : General: Yes no CVA tenderness Back/Spine/Pelvis: Back: no CVA tenderness Thoracic/Lumbar Spine: thoracic and lumbar spine normal to inspection Skin: General skin exam: rashes and/or lesions noted and dry skin Lesions: no lesions Rashes: no rashes Neuro: General: oriented to person, oriented to place, oriented to time, patient oriented x3, gait normal, moves all extremities, normal sensation to monofilament and Unable to assess gait Cranial nerves: Yes Equal, round and reactive pupils present Cognition (Neuro): normal cognition Speech: No Abnormal speech present Gait exam (Neuro): Unable to assess gait Motor exam (neuro): 5/5 motor strength present throughout Extrem: General: Yes normal to inspection, Yes full ROM, Yes capillary refill normal, Yes no clubbing, cyanosis or edema, Yes no pedal edema, Yes no calf tenderness, Yes normal gait and Yes edema Psych: Appearance: grossly normal and well kempt Mental Status: mental status grossly normal Speech and movement: Normal speech and movement present and Clear speech present Affect: normal affect Attitude: cooperative Thought process: Normal thought process present Thought content: Normal thought content present Objective Data Labs CBC & Chem 7: 04/19/21 06:11 04/19/21 06:11 Microbiology Microbiology Results: Microbiology 04/16/21 16:53 Pleural Fluid Gram Stain - Final 04/16/21 16:53 Pleural Fluid Routine Culture - Final No growth after 2 days 04/16/21 16:53 Pleural Fluid Anaerobic Culture - Preliminary No growth to date. 04/08/21 16:00 Pleural Fluid Gram Stain - Final 04/08/21 16:00 Pleural Fluid Routine Culture - Final No growth after 2 days 04/08/21 16:00 Pleural Fluid Anaerobic Culture - Final NO GROWTH AFTER 5 DAYS 04/07/21 08:23 Blood - Venous Blood Culture - Final No growth after 5 days. 04/07/21 08:12 Blood - Venous Blood Culture - Final No growth after 5 days. 03/31/21 21:53 Blood - Venous Blood Culture - Final Staphylococcus aureus Strep dysgalactiae ssp equisim 03/31/21 21:53 Blood - Venous Blood Culture - Final Staphylococcus aureus Strep dysgalactiae ssp equisim 04/01/21 Unknown Urine clean catch - Urine fox top Urine Culture - Final Procedures Date of Service Date of Service: 04/20/21 Assessment & Plan Assessment and plan (1) Pleural effusion: Status: Acute (2) Pneumonia: Status: Acute (3) Septic embolism: Status: Acute (4) Bacteremia: Status: Acute Assessment and Plan: resolved MELITON and hyponatremia will sign off for now call for ? Time Spent With Patient Time: Total time spent is greater than 50% in coordination of care (as documented) at patient's floor/unit and/or counseling patient: Progress Note: Quality Stroke Does the patient have a stroke diagnosis?: No
[2021-04-20 12:00] VITALS: BP 125/62; PULSE 94; RESP 18; TEMP 37.4; O2SAT 97
--- NOTE | 2021-04-20 13:31 | MHC.CLN ---
F/U PATIENT WITH CHEST TUBE. APPEARS TO BE EATING WELL, MOST MEALS 50-100%. DIET REGULAR WITH ENSURE TID. ENSURE PROVIDES 1050 KCAL, 39 G PROTEIN. CONTINUE TO FOLLOW.
[2021-04-20 16:00] VITALS: BP 122/60; PULSE 100; RESP 17; TEMP 36.8; O2SAT 98
--- NOTE | 2021-04-20 16:58 | P.PNADD_ITS ---
Subjective Subjective Date of Service: 04/20/21 Reason For Visit: PNA, endocarditis Interim History: Patient seen for follow up. Awake, alert, pleasant and engaged in interview. Denies any withdrawal sx or cravings Future oriented, asking questions about SNF, feeling motivated to completed treatment plan Asking appropriate questions about follow up treatment for OUD. Answered all questions and assured patient that [facility] has been in contact with [facility] and they will be accepting her back to continue treatment. Review of Systems Acute medical concerns: Yes still has right chest tube in place and still requiring 02 via [place] Medical Review of Systems: unchanged Mental Status Exam Mental Status Exam Patient Appearance: Appropriate Patient Orientation: Person, Place, Time and Situation Patient Behavior: Appropriate and Talkative Mood Description: Happy and Relaxed Affect Description: Happy and Relaxed Speech Pattern: Clear Thought Process: Intact Thought Content: positive for Goal Oriented Judgement: Fair Diagnostics Vital Signs (24Hr): Vital Signs - 24 hr 04/19/21 19:59 04/20/21 00:00 04/20/21 04:00 Temperature 98.4 F 99.2 F 97.3 F Pulse Rate 95 104 H 88 Respiratory Rate 18 19 18 Blood Pressure 131/63 110/60 116/59 L Pulse Oximetry 94 96 97 04/20/21 08:00 04/20/21 12:00 04/20/21 16:00 Temperature 99.7 F 99.4 F 98.3 F Pulse Rate 98 94 100 Respiratory Rate 18 18 17 Blood Pressure 122/59 L 125/62 122/60 Pulse Oximetry 96 97 98 BMI result Body Mass Index 24.2 Labs Results: 04/19/21 06:11 04/19/21 06:11 Labs: Laboratory Results - last 48 hr 04/18/21 04/19/21 04/19/21 10:25 06:11 06:11 WBC 14.7 H RBC 2.95 L Hgb 8.4 L D Hct 26.5 L MCV 89.8 MCH 28.5 MCHC 31.7 RDW 16.6 H Plt Count 118 L MPV 9.8 Immature Gran % (Auto) Cancelled Neut % (Auto) Cancelled Lymph % (Auto) Cancelled [place] % (Auto) Cancelled Eos % (Auto) Cancelled Baso % (Auto) Cancelled Lymph # (Auto) Cancelled [place] # (Auto) Cancelled Eos # (Auto) Cancelled Baso # (Auto) Cancelled Abs Immat Gran (auto) Cancelled Absolute Neuts (auto) Cancelled Absolute Nucleated RBC 0.000 Nucleated RBC % (auto) 0.0 Neutrophils % (Manual) 88 H Band Neutrophils % 3 Lymphocytes % (Manual) 5 L Monocytes % (Manual) 1 L Eosinophils % (Manual) 1 Basophils % (Manual) 1 Metamyelocytes % 1 Abs Neuts (Manual) 13.4 H Lymphocytes # (Manual) 0.7 L Monocytes # (Manual) 0.1 Eosinophils # (Manual) 0.1 Basophils # (Manual) 0.1 Metamyelocytes # 0.1 Platelet Estimate DECREASED Plt Morphology Comment NORMAL RBC Morphology NOTED Sodium 133 L Potassium 4.4 Chloride 101 Carbon Dioxide 25 Anion Gap 11 L BUN 16 Creatinine 1.30 Estim Creat Clear Calc 50.7 Estimated GFR 51 Random Glucose 82 Calcium 8.6 Crossmatch See Detail Imaging Radiology Impressions: ITS Impressions Chest X-Ray 03/31/21 22:26 IMPRESSION: Patchy bilateral airspace disease, most consistent with Covid pneumonia. Abdomen Ultrasound 04/01/21 09:54 IMPRESSION: Enlarged liver. Thickened edematous gallbladder wall. No gallstones are seen. Differential would include gallbladder wall changes related to liver disease, cholangitis, low albumin, CHF, acalculous cholecystitis and pancreatitis. If there is clinical concern of acalculous cholecystitis, HIDA scan would be recommended. Limited visualization of the pancreas. Small right pleural effusion. Pulmonary Perfusion Imaging 04/01/21 13:43 IMPRESSION: Intermediate probability of pulmonary embolism. These abnormalities may be due to pulmonary emboli or severe pneumonitis, or a combination of the two. If not contraindicated, CTA pulmonary embolism protocol would be helpful in differentiating these. Chest CTA 04/03/21 11:48 IMPRESSION: Very limited exam due to artifact from respiratory motion and extensive airspace disease and adenopathy. No large or central pulmonary embolism is seen. Evaluation of the segmental and subsegmental pulmonary arteries is markedly limited. Multiple bilateral pulmonary nodules, some of which appear cavitary and areas of airspace disease or consolidation in the lower lobes suggestive of pneumonia, left greater than right. Bilateral pleural effusions left greater than right. The left pleural effusion is partially loculated. Enlarged hilar and mediastinal lymph nodes. Chest CT appearance is somewhat atypical for Covid infection. Septic emboli, granulomatous or fungal infection, vasculitis, other causes of cavitary pneumonia such as Staphylococcus and Klebsiella pneumonia and neoplasm should be also considered. Prominent liver and spleen. Right axillary lymphadenopathy. VTE: neg Chest X-Ray 04/04/21 20:32 IMPRESSION: Worsening bilateral pulmonary opacities Small to moderate left effusion is minimally increased in size. Chest X-Ray 04/06/21 08:32 IMPRESSION: Worsened bilateral pleural effusions, loculated on the left. Persistent bilateral airspace disease and nodular opacities consistent with multifocal pneumonia. New right midlung opacity may represent fluid in the right major fissure or developing consolidative pneumonia. Chest CT 04/06/21 14:09 IMPRESSION: Worsened bilateral pleural effusions, left greater than right. The left pleural fluid is presumably loculated as it is seen tracking along the left lateral chest wall in a nondependent position. Innumerable nodular opacities and areas of nodular consolidation are seen, many of which are cavitary. These are increased in number from the prior study 04/03/2021. The previously seen abnormalities a roughly similar in size. The overall appearance, particularly with the cavitation, is more suggestive of septic emboli or other multifocal pneumonia, rather than viral COVID pneumonitis. In addition, there is worsening confluent consolidation at the left lung base and in the superior segment of the right lower lobe consistent with worsening focal consolidative pneumonia. Fleischner guidelines were followed. Chest Tube Insertion 04/08/21 16:36 IMPRESSION: Successful CT fluoroscopy-guided insertion of a 6.3-Maldivian left chest tube catheter with its tip along the left lateral chest wall connected to waterseal drainage and subsequently to be connected to -20 cm of wall suction. There were no immediate complications. The patient was sent to the floor in satisfactory condition same as received previously. Chest X-Ray 04/09/21 08:20 IMPRESSION: Left-sided chest tube in place with no significant change in left loculated pleural effusion. Small amount of air seen within the left pleural space, likely either iatrogenic from a small amount of air introduced with chest tube or related to trapped lung with some fluid being removed. Increase in size of partially loculated right pleural effusion. Diffuse bilateral regions of interstitial and airspace disease. Chest X-Ray 04/10/21 07:20 IMPRESSION: Interval decrease in left pleural effusion. New small left pneumothorax. Bilateral airspace disease and nodular opacities unchanged. Moderate size right pleural effusion. 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 Chest X-Ray 04/11/21 06:42 IMPRESSION: No significant change from prior. Small left and moderate right pleural effusions. Patchy bilateral opacities. Chest CT 04/12/21 06:00 IMPRESSION: 1. Significant improvement of the prior left pleural effusion. Tiny left-sided hydropneumothorax remains. Pigtail catheter in place. 2. Similar appearance of the right-sided pleural effusion with loculation along the peripheral mid hemithorax. 3. Multifocal nodular opacities throughout the lungs with cavitation, showing some increase in size from prior. This is most concerning for septic emboli. Increased bilateral lower lung consolidation which could be in part atelectasis. Fleischner guidelines were followed. Chest X-Ray 04/13/21 06:15 IMPRESSION: No significant change from prior. Small left hydropneumothorax. Moderate right pleural effusion. Bilateral airspace opacities. Chest X-Ray 04/14/21 08:45 IMPRESSION: No change in bilateral airspace opacities and cavity formation seen throughout the lungs. Stable position of left chest tube. Tiny left lateral pneumothorax unchanged. Moderate right pleural effusion unchanged. Chest X-Ray 04/15/21 06:10 IMPRESSION: No significant change of small bilateral pleural effusions with patchy bilateral airspace opacities. Guidance Ultrasound 04/16/21 16:14 IMPRESSION: Successful fluoroscopy-guided right jugular triple-lumen catheter insertion without immediate complications. Patient tolerated procedure extremely well. Fluoroscopy time 0.1 minute. Images: 1. Dose area product: 31 cGy/cm2 Insertion Non-Tunneled Catheter 04/16/21 16:14 IMPRESSION: Successful fluoroscopy-guided right jugular triple-lumen catheter insertion without immediate complications. Patient tolerated procedure extremely well. Fluoroscopy time 0.1 minute. Images: 1. Dose area product: 31 cGy/cm2 Chest Tube Insertion 04/16/21 17:10 IMPRESSION: Successful CT guided insertion of right chest tube connected to wall suction via waterseal device. There were no immediate complications. DLP: 140 mGy/cm. Chest X-Ray 04/17/21 07:35 IMPRESSION: Small-bore right chest tube in place with pneumothorax with the appearance of trapped lung. There remains some right base density within the pleural space suggestive of some residual fluid. No significant change in appearance of diffuse bilateral interstitial and airspace disease. Right internal jugular central venous catheter tip within the mid to inferior right atrium. Chest X-Ray 04/18/21 06:30 IMPRESSION: No significant change compared to prior day's study. Chest X-Ray 04/19/21 06:35 IMPRESSION: No significant change in small right hydropneumothorax. Patchy bilateral airspace opacities are unchanged. Chest X-Ray 04/20/21 07:30 IMPRESSION: 1. Persistent small right hydropneumothorax with minimal interval decrease in air component. No significant change in right chest tube. 2. Bilateral patchy infiltrates without significant change. Chest CT 04/20/21 09:37 IMPRESSION: Complex study. Increased amount of right-sided pleural air but decreased amount of right-sided pleural fluid. Unchanged small left pleural effusion. However, previously visualized associated left pleural air has resolved. Redemonstration of multifocal cavitated airspace opacities, some of which stable, others decreased and a few increased in size. Recommend continued monitoring. Medications Medications Current Medications Acetaminophen (Acetaminophen 325 Mg Tablet) 650 mg PO Q6H PRN PRN Reason: Fever Last Admin: 04/18/21 20:20 Dose: 650 mg Documented by: Benzonatate (Benzonatate 100 Mg Capsule) 100 mg PO TID PRN PRN Reason: Cough Last Admin: 04/17/21 16:09 Dose: 100 mg Documented by: Guaifenesin/Dextromethorphan (Guaifenesin Dm 200/20/10 Ml 10 Ml Syrup) 10 ml PO QID [facility] Last Admin: 04/20/21 16:03 Dose: 10 ml Documented by: Hydroxyzine HCl (Hydroxyzine Hcl 25 Mg Tablet) 25 mg PO Q6H PRN PRN Reason: Anxiety Last Admin: 04/19/21 04:55 Dose: 25 mg Documented by: Cefazolin Sodium/Dextrose (Ancef) 2 gm in 50 mls @ 100 mls/hr IV Q8H [facility] Last Infusion: 04/20/21 16:44 Dose: Infused Documented by: Melatonin (Melatonin 3 Mg Tablet) 6 mg PO BEDTIME PRN PRN Reason: Insomnia Last Admin: 04/17/21 20:01 Dose: 6 mg Documented by: Methadone HCl (Methadone Hcl 20 Mg/2 Ml Oral.Conc) 55 mg PO DAILY [facility] Last Admin: 04/20/21 07:53 Dose: 55 mg Documented by: Nicotine Polacrilex (Nicotine Polacrilex 2 Mg Gum) 2 mg BUCCAL Q2H PRN PRN Reason: Nicotine Cravings Last Admin: 04/04/21 05:47 Dose: 2 mg Documented by: Oxycodone HCl (Oxycodone Hcl Immed Release 5 Mg Tablet) 5 mg PO Q4H PRN PRN Reason: Pain, Moderate (Pain Scale 4-6 Last Admin: 04/20/21 12:12 Dose: 5 mg Documented by: Pharmacy Consult (Consult Rx Perform Med Rec) 1 each MISCELLANE ONCE PRN PRN Reason: Consult order Senna (Sennosides 8.6 Mg Tablet) 17.2 mg PO BEDTIME PRN PRN Reason: Constipation Sodium Chloride (0.9 % Sodium Chloride Flush 3 Ml Syringe) 3 ml IVFLUSH QSHIFT [facility] Last Admin: 04/20/21 16:12 Dose: Not Given Documented by: Allergies Allergies Allergy/AdvReac Type Severity Reaction Status Date / Time No Known Allergies Allergy Verified 05/12/20 05:11 Assessment & Plan Assessment & Plan (1) Opioid use disorder, severe, dependence: Status: Acute Code(s): F11.20 - Opioid dependence, uncomplicated Assessment and Plan: * continue methadone at current dose * will continue to follow * [facility]N to commuicate with CM regarding continued methadone treatment while at SNF Assessment and Plan: I spent ___20___ minutes with the patient and/or on the patient floor today, greater than?50% of which was spent counseling/coordinating care.
--- NOTE | 2021-04-20 18:35 | HO.PM.IMPN ---
Subjective Subjective Date of Service: 04/20/21 Interval History: No acute issues overnight. Review of Systems Denies chest pain Denies shortness of breath Denies nausea vomiting diarrhea Physical Exam Vital Signs: Vital Signs: Last Vital Signs Temp 98.3 F 04/20/21 16:00 Pulse 100 04/20/21 16:00 Resp 17 04/20/21 16:00 BP 122/60 04/20/21 16:00 Pulse Ox 98 04/20/21 16:00 BMI result Body Mass Index 24.2 Const: Other: awake alert oriented x3 no acute distress HENMT: Other: mucous membranes moist; oropharynx clear Chest: Other: Right-sided chest tube small bore pigtail catheter remains in place attached to -20 low wall suction.? No detectable chest tube air leak. Resp: Other: diminished at bases; scattered expiratory wheezes Cardio: Other: no S4; positive S1-S2; no S3 murmurs rubs or gallops GI: Other: soft nontender nondistended normoactive bowel sounds x4 quadrants. No rebound or guarding appreciated Neuro: Other: cranial nerves 2-12 grossly intact as tested. Motor is 5/5 all extremities. Sensation is intact. Cognition appropriate Extrem: Other: no edema bilaterally Objective Data Active Medications Acetaminophen (Acetaminophen 325 Mg Tablet) 650 mg PO Q6H PRN PRN Reason: Fever Last Admin: 04/18/21 20:20 Dose: 650 mg Documented by: VALENTIN Benzonatate (Benzonatate 100 Mg Capsule) 100 mg PO TID PRN PRN Reason: Cough Last Admin: 04/17/21 16:09 Dose: 100 mg Documented by: TON Guaifenesin/Dextromethorphan (Guaifenesin Dm 200/20/10 Ml 10 Ml Syrup) 10 ml PO QID [facility] Last Admin: 04/20/21 16:03 Dose: 10 ml Documented by: NOEL Hydroxyzine HCl (Hydroxyzine Hcl 25 Mg Tablet) 25 mg PO Q6H PRN PRN Reason: Anxiety Last Admin: 04/19/21 04:55 Dose: 25 mg Documented by: NICOLA Cefazolin Sodium/Dextrose (Ancef) 2 gm in 50 mls @ 100 mls/hr IV Q8H [facility] Last Infusion: 04/20/21 16:44 Dose: 0 mls/hr Documented by: NOEL Melatonin (Melatonin 3 Mg Tablet) 6 mg PO BEDTIME PRN PRN Reason: Insomnia Last Admin: 04/17/21 20:01 Dose: 6 mg Documented by: TON Methadone HCl (Methadone Hcl 20 Mg/2 Ml Oral.Conc) 55 mg PO DAILY [facility] Last Admin: 04/20/21 07:53 Dose: 55 mg Documented by: NICOLA Nicotine Polacrilex (Nicotine Polacrilex 2 Mg Gum) 2 mg BUCCAL Q2H PRN PRN Reason: Nicotine Cravings Last Admin: 04/04/21 05:47 Dose: 2 mg Documented by: ODRISM Oxycodone HCl (Oxycodone Hcl Immed Release 5 Mg Tablet) 5 mg PO Q4H PRN PRN Reason: Pain, Moderate (Pain Scale 4-6 Last Admin: 04/20/21 12:12 Dose: 5 mg Documented by: NICOLA Pharmacy Consult (Consult Rx Perform Med Rec) 1 each MISCELLANE ONCE PRN PRN Reason: Consult order Senna (Sennosides 8.6 Mg Tablet) 17.2 mg PO BEDTIME PRN PRN Reason: Constipation Sodium Chloride (0.9 % Sodium Chloride Flush 3 Ml Syringe) 3 ml IVFLUSH QSHIFT [facility] Last Admin: 04/20/21 16:12 Dose: Not Given Documented by: NOEL Non-Admin Reason: patient has tlc Labs CBC & Chem 7: 04/19/21 06:11 04/19/21 06:11 Microbiology Microbiology Results: Microbiology 04/16/21 16:53 Gram Stain - Final Pleural Fluid Routine Culture - Final No growth after 2 days Anaerobic Culture - Preliminary No growth to date. Assessment and Plan (1) Infective endocarditis: Status: Acute (2) Bacteremia: Status: Acute (3) Pleural effusion: Status: Acute Assessment and Plan: 25yo F with history of IV heroin + cocaine abuse, recent RUE cellulitis with open wound,p/w SOB and admitted for severe sepsis found to be bacteremic with TV endocarditis complicated by cavitary septic emboli + bilateral loculated pleural effusions 1. 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 Afebrile x 48hrs...CUltures remain negative. ? S/P 7d of vancomycin, now on cefazolin 2g IV q8h day #, repeat blood culture 04/07 clear. ? Continue current treatment right IJ catheter placed by IR 04/16 due to no IV access. ? 2.Loculated B pleural effusions/# small L pneumothorax Repeat CT Chest today: Increased amount of right-sided pleural air but decreased amount of right-sided pleural fluid? Unchanged small left pleural effusion. However, previously visualized associated left pleural air has resolved.Redemonstration of multifocal cavitated airspace opacities, some of which stable, others decreased and a few increased in size Futher plans as per CT surgery ? 3.Anemia(chronic) Status post 6 units of packed RBC ( tranfused 3u pRBCs 04/03/21 + 2u pRBCs 04/07/21; 1 unit packed RBC on 04/13 ) and 1 unit on 04/18 Serial CBC's 4.Coagulopathy Vit K 10 mg PO given; repeat INR 5. 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 Quality Stroke Does the patient have a stroke diagnosis?: No VTE Prior VTE?: No VTE Risk Level:: Medical - moderate - high VTE Device Contraindication: Treatment Not Indicated VTE Drug Contraindication: N/A - Med Ordered
[2021-04-20 20:00] VITALS: BP 117/69; PULSE 100; RESP 17; TEMP 36.9; O2SAT 96
[2021-04-21] VITALS (7 sets, daily range): BP systolic 110–145; BP diastolic 51–69; PULSE 90–98; RESP 17–18; TEMP 36.7–37.3; O2SAT 94–97
[2021-04-21] MEDS: 0.9 % Sodium Chloride Flush 3 ML SYRINGE IVFLUSH ×2 (00:42→08:10)
[2021-04-21] MEDS: ceFAZolin Sodium/Dextrose,Iso 2 GM/50 ML PIGGYBACK IV ×3 (00:42→15:12)
[2021-04-21] MEDS: oxyCODONE HCl Immed Release 5 MG TABLET PO ×3 (00:42→20:43)
[2021-04-21 06:15] LABS: Hematocrit 23.2 % (37.0-47.0); Hemoglobin 7.3 g/dl (12.0-16.0); Mean Corpuscular HGB Conc 31.5 g/dl (31.0-35.0); Mean Corpuscular Hemoglobin 28.1 pg (27.0-33.0); Mean Corpuscular Volume 89.2 fL (80.0-98.0); Mean Platelet Volume 8.8 fL (9.4-12.3); Platelet Count 122 X10*3/uL (160-400); Red Cell Distribution Width 16.7 % (11.0-16.0); White Blood Count 15.5 X10*3/uL (4.8-10.8)
--- NOTE | 2021-04-21 06:20 | PC.NURSE ---
chest tube to posterior right back; output for 4080-1975; 10mls
[2021-04-21 06:37] LABS: Band Neutrophils Percent 7 % (3-5); Basophils Abs Manual 0.2 X10*3/uL (0.0-0.2); Basophils Percent Manual 1 % (0-2); Eosinophils Absolute Manual 0.3 X10*3/uL (0.0-0.4); Eosinophils Percent Manual 2 % (0-4); Lymphocytes Absolute Manual 1.9 X10*3/uL (1.2-4.9); Lymphocytes Percent Manual 12 % (20-40); Metamyelocytes Absolute 0.3 X10*3/uL; Metamyelocytes Percent 2 %; Monocytes Absolute Manual 1.2 X10*3/uL (0.1-1.2); Monocytes Percent Manual 8 % (2-11); Neutrophils Absolute Manual 11.6 X10*3/uL (2.0-8.3); Neutrophils Percent Manual 68 % (45-73)
[2021-04-21 06:38] LABS: Hypochromasia 1+ (5-14) /OIF; Microcytosis 1+ (5-14) /OIF; Platelet Estimate SLIGHTLY DECREASED (NORMAL); Platelet Morphology Comment NORMAL; Polychromasia 1+ (0-2) /OIF; RBC Morphology NOTED
[2021-04-21 06:59] LABS: Alanine Aminotransferase < 6 U/L (0-31); Anion Gap 7 (12-20); Aspartate Amino Transferase 12 U/L (5-31); Bilirubin Total 0.4 mg/dL (0.0-1.0); Blood Urea Nitrogen 18 mg/dL (9-16); Calcium 8.4 mg/dL (8.4-10.2); Carbon Dioxide 30 mmol/L (22-29); Chloride 99 mmol/L (96-108); Creatinine Clr Calc Pharmacy 39.6; Estimated Glomerular Filt Rate 38; Glucose Fasting 86 mg/dL (60-99); Sodium 131 mmol/L (135-145); Total Protein 6.8 g/dL (6.5-8.0)
[2021-04-21 07:00] LABS: Albumin Level 1.9 g/dL (3.5-5.0); Alkaline Phosphatase 84 U/L (39-117)
[2021-04-21] MEDS: methADONE HCl 20 MG/2 ML ORAL.CONC 55 MG PO (08:09)
[2021-04-21] MEDS: guaiFENesin DM 200/20/10 ML 10 ML SYRUP PO ×4 (08:09→20:43)
--- NOTE | 2021-04-21 15:26 | P.PNIM_ITS ---
Subjective Subjective Date of Service: 04/21/21 Interval History: No acute issues overnight. Remains tolerant of therapy Review of Systems Denies chest pain Denies shortness of breath Denies nausea vomiting diarrhea Physical Exam Vital Signs: Vital Signs: Last Vital Signs Temp 98.9 F 04/21/21 11:55 Pulse 96 04/21/21 11:55 Resp 18 04/21/21 11:55 BP 145/69 H 04/21/21 11:55 Pulse Ox 96 04/21/21 11:55 BMI result Body Mass Index 24.2 Const: Other: awake alert oriented x3 no acute distress HENMT: Other: mucous membranes moist; oropharynx clear Chest: Other: Right-sided chest tube small bore pigtail catheter remains in place attached to -20 low wall suction.? No detectable chest tube air leak. Resp: Other: diminished at bases; scattered expiratory wheezes Cardio: Other: no S4; positive S1-S2; no S3 murmurs rubs or gallops GI: Other: soft nontender nondistended normoactive bowel sounds x4 quadrants. No rebound or guarding appreciated Neuro: Other: cranial nerves 2-12 grossly intact as tested. Motor is 5/5 all extremities. Sensation is intact. Cognition appropriate Extrem: Other: no edema bilaterally Objective Data Active Medications Acetaminophen (Acetaminophen 325 Mg Tablet) 650 mg PO Q6H PRN PRN Reason: Fever Last Admin: 04/18/21 20:20 Dose: 650 mg Documented by: VALENTIN Benzonatate (Benzonatate 100 Mg Capsule) 100 mg PO TID PRN PRN Reason: Cough Last Admin: 04/17/21 16:09 Dose: 100 mg Documented by: TON Guaifenesin/Dextromethorphan (Guaifenesin Dm 200/20/10 Ml 10 Ml Syrup) 10 ml PO QID [facility] Last Admin: 04/21/21 13:57 Dose: 10 ml Documented by: JULES Hydroxyzine HCl (Hydroxyzine Hcl 25 Mg Tablet) 25 mg PO Q6H PRN PRN Reason: Anxiety Last Admin: 04/19/21 04:55 Dose: 25 mg Documented by: NICOLA Cefazolin Sodium/Dextrose (Ancef) 2 gm in 50 mls @ 100 mls/hr IV Q8H [facility] Last Admin: 04/21/21 15:12 Dose: 100 mls/hr Documented by: NOEL Melatonin (Melatonin 3 Mg Tablet) 6 mg PO BEDTIME PRN PRN Reason: Insomnia Last Admin: 04/17/21 20:01 Dose: 6 mg Documented by: TON Methadone HCl (Methadone Hcl 20 Mg/2 Ml Oral.Conc) 55 mg PO DAILY [facility] Last Admin: 04/21/21 08:09 Dose: 55 mg Documented by: JULES Nicotine Polacrilex (Nicotine Polacrilex 2 Mg Gum) 2 mg BUCCAL Q2H PRN PRN Reason: Nicotine Cravings Last Admin: 04/04/21 05:47 Dose: 2 mg Documented by: ODRISM Oxycodone HCl (Oxycodone Hcl Immed Release 5 Mg Tablet) 5 mg PO Q4H PRN PRN Reason: Pain, Moderate (Pain Scale 4-6 Last Admin: 04/21/21 06:18 Dose: 5 mg Documented by: DAMARIS Pharmacy Consult (Consult Rx Perform Med Rec) 1 each MISCELLANE ONCE PRN PRN Reason: Consult order Senna (Sennosides 8.6 Mg Tablet) 17.2 mg PO BEDTIME PRN PRN Reason: Constipation Sodium Chloride (0.9 % Sodium Chloride Flush 3 Ml Syringe) 3 ml IVFLUSH QSHIFT [facility] Last Admin: 04/21/21 15:12 Dose: Not Given Documented by: NOEL Non-Admin Reason: patient has a TLC Labs CBC & Chem 7: 04/21/21 05:44 04/21/21 05:44 Labs: Laboratory Results - last 24 hr 03/31/21 03/31/21 04/01/21 21:53 21:53 00:41 WBC 11.8 H MCV MCH MCHC RDW Plt Count MPV Immature Gran % (Auto) Neut % (Auto) Lymph % (Auto) Collier % (Auto) Eos % (Auto) Baso % (Auto) Lymph # (Auto) Collier # (Auto) Eos # (Auto) Baso # (Auto) Abs Immat Gran (auto) Absolute Neuts (auto) Absolute Nucleated RBC Nucleated RBC % (auto) Neutrophils % (Manual) Band Neutrophils % Lymphocytes % (Manual) Monocytes % (Manual) Eosinophils % (Manual) Basophils % (Manual) Metamyelocytes % Abs Neuts (Manual) Lymphocytes # (Manual) Monocytes # (Manual) Eosinophils # (Manual) Basophils # (Manual) Metamyelocytes # Platelet Estimate Plt Morphology Comment RBC Morphology Polychromasia Hypochromasia Microcytosis Anion Gap Creatinine 2.51 H 2.08 H Estim Creat Clear Calc Estimated GFR Fasting Glucose Calcium Total Bilirubin AST ALT Alkaline Phosphatase Total Protein Albumin 04/01/21 04/01/21 04/01/21 03:20 03:20 08:17 WBC 4.8 MCV MCH MCHC RDW Plt Count MPV Immature Gran % (Auto) Neut % (Auto) Lymph % (Auto) Collier % (Auto) Eos % (Auto) Baso % (Auto) Lymph # (Auto) Collier # (Auto) Eos # (Auto) Baso # (Auto) Abs Immat Gran (auto) Absolute Neuts (auto) Absolute Nucleated RBC Nucleated RBC % (auto) Neutrophils % (Manual) Band Neutrophils % Lymphocytes % (Manual) Monocytes % (Manual) Eosinophils % (Manual) Basophils % (Manual) Metamyelocytes % Abs Neuts (Manual) Lymphocytes # (Manual) Monocytes # (Manual) Eosinophils # (Manual) Basophils # (Manual) Metamyelocytes # Platelet Estimate Plt Morphology Comment RBC Morphology Polychromasia Hypochromasia Microcytosis Anion Gap Creatinine 1.84 H 1.50 H Estim Creat Clear Calc Estimated GFR Fasting Glucose Calcium Total Bilirubin AST ALT Alkaline Phosphatase Total Protein Albumin 04/01/21 04/02/21 04/02/21 19:15 05:18 05:18 WBC 4.6 L MCV MCH MCHC RDW Plt Count MPV Immature Gran % (Auto) Neut % (Auto) Lymph % (Auto) Collier % (Auto) Eos % (Auto) Baso % (Auto) Lymph # (Auto) Collier # (Auto) Eos # (Auto) Baso # (Auto) Abs Immat Gran (auto) Absolute Neuts (auto) Absolute Nucleated RBC Nucleated RBC % (auto) Neutrophils % (Manual) Band Neutrophils % Lymphocytes % (Manual) Monocytes % (Manual) Eosinophils % (Manual) Basophils % (Manual) Metamyelocytes % Abs Neuts (Manual) Lymphocytes # (Manual) Monocytes # (Manual) Eosinophils # (Manual) Basophils # (Manual) Metamyelocytes # Platelet Estimate Plt Morphology Comment RBC Morphology Polychromasia Hypochromasia Microcytosis Anion Gap Creatinine 1.32 1.07 Estim Creat Clear Calc Estimated GFR Fasting Glucose Calcium Total Bilirubin AST ALT Alkaline Phosphatase Total Protein Albumin 04/03/21 04/03/21 04/04/21 05:15 05:15 08:16 WBC 4.5 L 8.1 MCV MCH MCHC RDW Plt Count MPV Immature Gran % (Auto) Neut % (Auto) Lymph % (Auto) Collier % (Auto) Eos % (Auto) Baso % (Auto) Lymph # (Auto) Collier # (Auto) Eos # (Auto) Baso # (Auto) Abs Immat Gran (auto) Absolute Neuts (auto) Absolute Nucleated RBC Nucleated RBC % (auto) Neutrophils % (Manual) Band Neutrophils % Lymphocytes % (Manual) Monocytes % (Manual) Eosinophils % (Manual) Basophils % (Manual) Metamyelocytes % Abs Neuts (Manual) Lymphocytes # (Manual) Monocytes # (Manual) Eosinophils # (Manual) Basophils # (Manual) Metamyelocytes # Platelet Estimate Plt Morphology Comment RBC Morphology Polychromasia Hypochromasia Microcytosis Anion Gap Creatinine 0.73 Estim Creat Clear Calc Estimated GFR Fasting Glucose Calcium Total Bilirubin AST ALT Alkaline Phosphatase Total Protein Albumin 04/04/21 04/05/21 04/05/21 08:16 08:34 08:34 WBC 9.8 MCV MCH MCHC RDW Plt Count MPV Immature Gran % (Auto) Neut % (Auto) Lymph % (Auto) Collier % (Auto) Eos % (Auto) Baso % (Auto) Lymph # (Auto) Collier # (Auto) Eos # (Auto) Baso # (Auto) Abs Immat Gran (auto) Absolute Neuts (auto) Absolute Nucleated RBC Nucleated RBC % (auto) Neutrophils % (Manual) Band Neutrophils % Lymphocytes % (Manual) Monocytes % (Manual) Eosinophils % (Manual) Basophils % (Manual) Metamyelocytes % Abs Neuts (Manual) Lymphocytes # (Manual) Monocytes # (Manual) Eosinophils # (Manual) Basophils # (Manual) Metamyelocytes # Platelet Estimate Plt Morphology Comment RBC Morphology Polychromasia Hypochromasia Microcytosis Anion Gap Creatinine 0.59 0.86 Estim Creat Clear Calc Estimated GFR Fasting Glucose Calcium Total Bilirubin AST ALT Alkaline Phosphatase Total Protein Albumin 04/06/21 04/06/21 04/06/21 04:35 04:35 20:34 WBC 10.1 MCV MCH MCHC RDW Plt Count MPV Immature Gran % (Auto) Neut % (Auto) Lymph % (Auto) Collier % (Auto) Eos % (Auto) Baso % (Auto) Lymph # (Auto) Collier # (Auto) Eos # (Auto) Baso # (Auto) Abs Immat Gran (auto) Absolute Neuts (auto) Absolute Nucleated RBC Nucleated RBC % (auto) Neutrophils % (Manual) Band Neutrophils % Lymphocytes % (Manual) Monocytes % (Manual) Eosinophils % (Manual) Basophils % (Manual) Metamyelocytes % Abs Neuts (Manual) Lymphocytes # (Manual) Monocytes # (Manual) Eosinophils # (Manual) Basophils # (Manual) Metamyelocytes # Platelet Estimate Plt Morphology Comment RBC Morphology Polychromasia Hypochromasia Microcytosis Anion Gap Creatinine 1.06 1.17 Estim Creat Clear Calc Estimated GFR Fasting Glucose Calcium Total Bilirubin AST ALT Alkaline Phosphatase Total Protein Albumin 04/07/21 04/07/21 04/08/21 08:12 08:12 05:20 WBC 11.7 H 13.8 H MCV MCH MCHC RDW Plt Count MPV Immature Gran % (Auto) Neut % (Auto) Lymph % (Auto) Collier % (Auto) Eos % (Auto) Baso % (Auto) Lymph # (Auto) Collier # (Auto) Eos # (Auto) Baso # (Auto) Abs Immat Gran (auto) Absolute Neuts (auto) Absolute Nucleated RBC Nucleated RBC % (auto) Neutrophils % (Manual) Band Neutrophils % Lymphocytes % (Manual) Monocytes % (Manual) Eosinophils % (Manual) Basophils % (Manual) Metamyelocytes % Abs Neuts (Manual) Lymphocytes # (Manual) Monocytes # (Manual) Eosinophils # (Manual) Basophils # (Manual) Metamyelocytes # Platelet Estimate Plt Morphology Comment RBC Morphology Polychromasia Hypochromasia Microcytosis Anion Gap Creatinine 1.18 Estim Creat Clear Calc Estimated GFR Fasting Glucose Calcium Total Bilirubin AST ALT Alkaline Phosphatase Total Protein Albumin 04/08/21 04/09/21 04/09/21 05:20 05:15 05:56 WBC 13.1 H MCV MCH MCHC RDW Plt Count MPV Immature Gran % (Auto) Neut % (Auto) Lymph % (Auto) Collier % (Auto) Eos % (Auto) Baso % (Auto) Lymph # (Auto) Collier # (Auto) Eos # (Auto) Baso # (Auto) Abs Immat Gran (auto) Absolute Neuts (auto) Absolute Nucleated RBC Nucleated RBC % (auto) Neutrophils % (Manual) Band Neutrophils % Lymphocytes % (Manual) Monocytes % (Manual) Eosinophils % (Manual) Basophils % (Manual) Metamyelocytes % Abs Neuts (Manual) Lymphocytes # (Manual) Monocytes # (Manual) Eosinophils # (Manual) Basophils # (Manual) Metamyelocytes # Platelet Estimate Plt Morphology Comment RBC Morphology Polychromasia Hypochromasia Microcytosis Anion Gap Creatinine 1.14 1.26 Estim Creat Clear Calc Estimated GFR Fasting Glucose Calcium Total Bilirubin AST ALT Alkaline Phosphatase Total Protein Albumin 04/10/21 04/11/21 04/11/21 05:17 05:38 05:38 WBC 12.6 H 12.2 H MCV MCH MCHC RDW Plt Count MPV Immature Gran % (Auto) Neut % (Auto) Lymph % (Auto) Collier % (Auto) Eos % (Auto) Baso % (Auto) Lymph # (Auto) Collier # (Auto) Eos # (Auto) Baso # (Auto) Abs Immat Gran (auto) Absolute Neuts (auto) Absolute Nucleated RBC Nucleated RBC % (auto) Neutrophils % (Manual) Band Neutrophils % Lymphocytes % (Manual) Monocytes % (Manual) Eosinophils % (Manual) Basophils % (Manual) Metamyelocytes % Abs Neuts (Manual) Lymphocytes # (Manual) Monocytes # (Manual) Eosinophils # (Manual) Basophils # (Manual) Metamyelocytes # Platelet Estimate Plt Morphology Comment RBC Morphology Polychromasia Hypochromasia Microcytosis Anion Gap Creatinine 1.21 Estim Creat Clear Calc Estimated GFR Fasting Glucose Calcium Total Bilirubin AST ALT Alkaline Phosphatase Total Protein Albumin 04/12/21 04/12/21 04/13/21 05:36 05:36 04:38 WBC 12.1 H 11.0 H MCV MCH MCHC RDW Plt Count MPV Immature Gran % (Auto) Neut % (Auto) Lymph % (Auto) Collier % (Auto) Eos % (Auto) Baso % (Auto) Lymph # (Auto) Collier # (Auto) Eos # (Auto) Baso # (Auto) Abs Immat Gran (auto) Absolute Neuts (auto) Absolute Nucleated RBC Nucleated RBC % (auto) Neutrophils % (Manual) Band Neutrophils % Lymphocytes % (Manual) Monocytes % (Manual) Eosinophils % (Manual) Basophils % (Manual) Metamyelocytes % Abs Neuts (Manual) Lymphocytes # (Manual) Monocytes # (Manual) Eosinophils # (Manual) Basophils # (Manual) Metamyelocytes # Platelet Estimate Plt Morphology Comment RBC Morphology Polychromasia Hypochromasia Microcytosis Anion Gap Creatinine 1.24 Estim Creat Clear Calc Estimated GFR Fasting Glucose Calcium Total Bilirubin AST ALT Alkaline Phosphatase Total Protein Albumin 04/14/21 04/15/21 04/18/21 08:29 05:16 06:52 WBC 11.5 H 13.4 H MCV MCH MCHC RDW Plt Count MPV Immature Gran % (Auto) Neut % (Auto) Lymph % (Auto) Collier % (Auto) Eos % (Auto) Baso % (Auto) Lymph # (Auto) Collier # (Auto) Eos # (Auto) Baso # (Auto) Abs Immat Gran (auto) Absolute Neuts (auto) Absolute Nucleated RBC Nucleated RBC % (auto) Neutrophils % (Manual) Band Neutrophils % Lymphocytes % (Manual) Monocytes % (Manual) Eosinophils % (Manual) Basophils % (Manual) Metamyelocytes % Abs Neuts (Manual) Lymphocytes # (Manual) Monocytes # (Manual) Eosinophils # (Manual) Basophils # (Manual) Metamyelocytes # Platelet Estimate Plt Morphology Comment RBC Morphology Polychromasia Hypochromasia Microcytosis Anion Gap Creatinine 1.27 Estim Creat Clear Calc Estimated GFR Fasting Glucose Calcium Total Bilirubin AST ALT Alkaline Phosphatase Total Protein Albumin 04/19/21 04/19/21 04/21/21 06:11 06:11 05:44 WBC 14.7 H 15.5 H MCV 89.2 MCH 28.1 MCHC 31.5 RDW 16.7 H Plt Count 122 L MPV 8.8 L Immature Gran % (Auto) Cancelled Neut % (Auto) Cancelled Lymph % (Auto) Cancelled Collier % (Auto) Cancelled Eos % (Auto) Cancelled Baso % (Auto) Cancelled Lymph # (Auto) Cancelled Collier # (Auto) Cancelled Eos # (Auto) Cancelled Baso # (Auto) Cancelled Abs Immat Gran (auto) Cancelled Absolute Neuts (auto) Cancelled Absolute Nucleated RBC 0.000 Nucleated RBC % (auto) 0.0 Neutrophils % (Manual) 68 Band Neutrophils % 7 H Lymphocytes % (Manual) 12 L Monocytes % (Manual) 8 Eosinophils % (Manual) 2 Basophils % (Manual) 1 Metamyelocytes % 2 Abs Neuts (Manual) 11.6 H Lymphocytes # (Manual) 1.9 Monocytes # (Manual) 1.2 Eosinophils # (Manual) 0.3 Basophils # (Manual) 0.2 Metamyelocytes # 0.3 Platelet Estimate SLIGHTLY DECREASED Plt Morphology Comment NORMAL RBC Morphology NOTED Polychromasia 1+ (0-2) Hypochromasia 1+ (5-14) Microcytosis 1+ (5-14) Anion Gap Creatinine 1.30 Estim Creat Clear Calc Estimated GFR Fasting Glucose Calcium Total Bilirubin AST ALT Alkaline Phosphatase Total Protein Albumin 04/21/21 05:44 WBC MCV MCH MCHC RDW Plt Count MPV Immature Gran % (Auto) Neut % (Auto) Lymph % (Auto) Collier % (Auto) Eos % (Auto) Baso % (Auto) Lymph # (Auto) Collier # (Auto) Eos # (Auto) Baso # (Auto) Abs Immat Gran (auto) Absolute Neuts (auto) Absolute Nucleated RBC Nucleated RBC % (auto) Neutrophils % (Manual) Band Neutrophils % Lymphocytes % (Manual) Monocytes % (Manual) Eosinophils % (Manual) Basophils % (Manual) Metamyelocytes % Abs Neuts (Manual) Lymphocytes # (Manual) Monocytes # (Manual) Eosinophils # (Manual) Basophils # (Manual) Metamyelocytes # Platelet Estimate Plt Morphology Comment RBC Morphology Polychromasia Hypochromasia Microcytosis Anion Gap 7 L Creatinine 1.66 H Estim Creat Clear Calc 39.6 Estimated GFR 38 Fasting Glucose 86 Calcium 8.4 Total Bilirubin 0.4 AST 12 ALT < 6 Alkaline Phosphatase 84 D Total Protein 6.8 Albumin 1.9 L D Microbiology Microbiology Results: Microbiology 04/16/21 16:53 Gram Stain - Final Pleural Fluid Routine Culture - Final No growth after 2 days Anaerobic Culture - Preliminary No growth to date. Assessment and Plan (1) Septic embolism: Status: Acute (2) Transaminitis: Status: Acute (3) MELITON (acute kidney injury): Status: Acute Assessment and Plan: 25yo F with history of IV heroin + cocaine abuse, recent RUE cellulitis with open wound,p/w SOB and admitted for severe sepsis found to be bacteremic with TV endocarditis complicated by cavitary septic emboli + bilateral loculated pleural effusions 1. 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 Afebrile x 72hrs...CUltures remain negative. ? S/P 7d of vancomycin, now on cefazolin 2g IV q8h day #, repeat blood culture 04/07 clear. ? Continue current treatment right IJ catheter placed by IR 04/16 due to no IV access. ? 2.Loculated B pleural effusions/# small L pneumothorax Repeat CT Chest today: Increased amount of right-sided pleural air but decreased amount of right-sided pleural fluid? Unchanged small left pleural effusion. However, previously visualized associated left pleural air has resolved.Redemonstration of multifocal cavitated airspace opacities, some of which stable, others decreased and a few increased in size Futher plans as per CT surgery ? 3.Anemia(chronic) Status post 6 units of packed RBC ( tranfused 3u pRBCs 04/03/21 + 2u pRBCs 04/07/21; 1 unit packed RBC on 04/13 ) and 1 unit on 04/18 Serial CBC's 4.Opioid use disorder Continue methadone 55 mg/d; Addiction Medicine following closely, recommend to continue current doses since patient noted to be somnolent # VTE ppx - SCDs ?? Quality Stroke Does the patient have a stroke diagnosis?: No VTE Prior VTE?: No VTE Risk Level:: Medical - moderate - high VTE Device Contraindication: Treatment Not Indicated VTE Drug Contraindication: N/A - Med Ordered
--- NOTE | 2021-04-21 15:55 | P.PNTS_ITS ---
Subjective Subjective Date of Service: 04/21/21 Interval history: Patient continues to have SOB and HAUSER requiring oxygen supplementation. Continues to cough up white/rust colored sputum. Denies any worsening of her respiratory function overnight. Chest tube has remained to water seal since yesterday with minimal output. Diagnostics: EXAMINATION: XR CHEST CLINICAL INFORMATION: Right pneumothorax. Pigtail chest tube in place. COMPARISON: Chest radiograph dated from 04/20/[address] chest dated from 04/20/2021. TECHNIQUE: AP view of the chest was obtained. FINDINGS: Right-sided IJ CVC terminates at the level of the right atrium, similar to prior. A right-sided pigtail catheter appears slightly more inferiorly located when compared to the most recent prior within the right lung base. There is redemonstration of a right sided hydropneumothorax with decreased amount of air but overall similar amount of fluid. There is also redemonstration of a small left-sided pleural effusion. Multifocal airspace opacities many of which are cavitated are overall similar to prior which are better assessed on a recent CT of the chest. Unchanged appearance of the cardiomediastinal silhouette. No acute osseous abnormalities. XR/XR chest 1V IMPRESSION: Right hydropneumothorax with decreased amount of air and stable amount of fluid. ? Unchanged small left pleural effusion. ? Multifocal airspace opacities some of which are cavitated are overall similar. EXAMINATION: CT CHEST WITHOUT CONTRAST CLINICAL INFORMATION: Right hydropneumothorax.? COMPARISON: CT chest dated from 04/12/2021 and 04/16/2021.? TECHNIQUE: Multidetector volumetric CT imaging of the chest was done. Axial MIP volume rendering provided. Sagittal and coronal reformatted images were obtained.? This CT examination was performed using dose optimization techniques as appropriate, variously including the following: *Automated exposure control *Adjustment of mA and/or kV according to patient size (this includes techniques or standardized protocols for targeted exams where dose is matched to indication/reason for exam; i.e. extremities or head) *Use of iterative reconstruction technique DLP: 158 mGy-cm FINDINGS: INVENTORY CONTROL CLERK: Right lower lobe pigtail catheter in similar positioning to prior. Right IJ CVC with tip overlying the right atrium, also unchanged. LUNGS: There is decreased amount of right-sided pleural fluid but increased amount of right-sided pleural air when compared to CTs from 04/16/2021 and 04/12/2021. A small volume of left sided pleural fluid remains unchanged without definite associated pleural air. There is redemonstration of multifocal airspace opacities many of which demonstrate cavitation and internal air fluid levels. Overall, there has been a mixed response with some of these lesions slightly decreased in size, a few stable and others increased/new. For instance, an approximately 3.4 cm airspace opacity in the right upper lobe (3:16) seems new since 04/12/2021 and increased since 04/16/2021. An approximately 4.6 cm cavitated opacity in the right lower lobe appears decreased from approximately 5.1 cm in prior, however there is increased internal amount of air. Airspace opacities in the left lower lobe are slightly improved.? MEDIASTINUM: Normal heart size. Trace amount of pericardial fluid. Mediastinal and hilar lymphadenopathy is not entirely well delineated in the absence of intravenous contrast but overall stable. Normal appearance of the thyroid gland.? AXILLA: No lymphadenopathy.? UPPER ABDOMEN: Unremarkable.? OSSEOUS STRUCTURES: Unremarkable.? CT/CT chest wo con IMPRESSION: ? Complex study. ? Increased amount of right-sided pleural air but decreased amount of right-sided pleural fluid. ? Unchanged small left pleural effusion. However, previously visualized associated left pleural air has resolved. ? Redemonstration of multifocal cavitated airspace opacities, some of which stable, others decreased and a few increased in size. Recommend continued monitoring. Physical Exam Vital Signs: Vital Signs: Last Vital Signs Temp 98.0 F 04/21/21 15:54 Pulse 98 04/21/21 15:54 Resp 18 04/21/21 15:54 BP 130/58 L 04/21/21 15:54 Pulse Ox 96 04/21/21 15:54 BMI result Body Mass Index 24.2 General: No acute distress, resting comfortably in recliner Head: Normocephalic, atraumatic, symmetric Eyes: Sclera anicteric, eyelids without edema or erythema, +EOMS intact ENT: Oral mucosa and tongue are moist Neck: Soft, supple, symmetric, trachea midline, no crepitus, R IJ TLC in place. Respiratory: Breathing nonlabored, taking quick shallow breaths but in no distress, speaking in full sentences, on oxygen via nasal cannula. No use of accessory muscles. R pigtail chest tube x 1 to Atrium on waterseal, serous drainage in tubing (<80cc in last 48 hours), no air leak. Psychiatric: Alert and oriented x 3, no agitation, appropriate affect Procedures Date of Service Date of Service: 04/21/21 Progress Note: A&P Assessment and plan (1) Pleural effusion: Status: Acute Assessment and Plan: 25 year old female with IVDA (heroin, cocaine) admitted to [facility] with severe sepsis with anemia and coagulopathy treated with PRBC, bacteremia, tricuspid valve endocarditis, septic pulmonary emboli, bilateral pleural effusion, thrombocytopenia, and hyponatremia.? +HCV ab. Loculated left pleural effusion * s/p L pigtail catheter and 3 doses of chemical decortication. * Pigtail removed on 04/15/2021. No significant reaccumulation of the pleural effusion since. Right pleural effusion * s/p R pigtail catheter placed?on 04/16/21. * Minimal output over the last [address] chest yesterday shows significant improvement in the right effusion. No airleak. Small right pneumthorax likely trapped lung. * Right chest tube removed at time of my visit without issue. Occlusive dressing placed over the site and should remain in place x 48 hours. May remove it comepletely after that time and leave open to air. No further thoracic surgical needs for this patient. Patient OK for discharge from our perspective whenever medically cleared. We will sign off at this time. Please do not hesitate to call us back with any questions or concerns. Fall Risk Details Current Medications: Current Medications Acetaminophen (Acetaminophen 325 Mg Tablet) 650 mg PO Q6H PRN PRN Reason: Fever Last Admin: 04/18/21 20:20 Dose: 650 mg Documented by: Benzonatate (Benzonatate 100 Mg Capsule) 100 mg PO TID PRN PRN Reason: Cough Last Admin: 04/17/21 16:09 Dose: 100 mg Documented by: Guaifenesin/Dextromethorphan (Guaifenesin Dm 200/20/10 Ml 10 Ml Syrup) 10 ml PO QID CORAZON Last Admin: 04/21/21 13:57 Dose: 10 ml Documented by: Hydroxyzine HCl (Hydroxyzine Hcl 25 Mg Tablet) 25 mg PO Q6H PRN PRN Reason: Anxiety Last Admin: 04/19/21 04:55 Dose: 25 mg Documented by: Cefazolin Sodium/Dextrose (Ancef) 2 gm in 50 mls @ 100 mls/hr IV Q8H [facility] Last Admin: 04/21/21 15:12 Dose: 100 mls/hr Documented by: Melatonin (Melatonin 3 Mg Tablet) 6 mg PO BEDTIME PRN PRN Reason: Insomnia Last Admin: 04/17/21 20:01 Dose: 6 mg Documented by: Methadone HCl (Methadone Hcl 20 Mg/2 Ml Oral.Conc) 55 mg PO DAILY [facility] Last Admin: 04/21/21 08:09 Dose: 55 mg Documented by: Nicotine Polacrilex (Nicotine Polacrilex 2 Mg Gum) 2 mg BUCCAL Q2H PRN PRN Reason: Nicotine Cravings Last Admin: 04/04/21 05:47 Dose: 2 mg Documented by: Oxycodone HCl (Oxycodone Hcl Immed Release 5 Mg Tablet) 5 mg PO Q4H PRN PRN Reason: Pain, Moderate (Pain Scale 4-6 Last Admin: 04/21/21 06:18 Dose: 5 mg Documented by: Pharmacy Consult (Consult Rx Perform Med Rec) 1 each MISCELLANE ONCE PRN PRN Reason: Consult order Senna (Sennosides 8.6 Mg Tablet) 17.2 mg PO BEDTIME PRN PRN Reason: Constipation Sodium Chloride (0.9 % Sodium Chloride Flush 3 Ml Syringe) 3 ml IVFLUSH QSHIFT [facility] Last Admin: 04/21/21 15:12 Dose: Not Given Documented by: Time Spent With Patient Time: Total time spent is greater than 50% in coordination of care (as documented) at patient's floor/unit and/or counseling patient: Time with patient: 15 - 24 minutes Quality Stroke Does the patient have a stroke diagnosis?: No VTE Prior VTE?: No VTE Risk Level:: Medical - moderate - high VTE Device Contraindication: Treatment Not Indicated VTE Drug Contraindication: N/A - Med Ordered
--- NOTE | 2021-04-21 16:18 | MHC.CM.PN ---
NURSE MANUFACTURING WEAVER NOTE ELECTRONIC MEDICAL RECORD REVIEWED ALONG WITH CASE DISCUSSED ON MULTIPLE DISCIPLIANRY ROUNDS [facility] IN [facility] AND [facility] REVIEWING ASKED IF THEY WOULD PLEASE RESPONFD TOMORROW CASE DISCUSSED WITH MICHELLE SURGICAL PA. CHEST TUBE REMOVED TODAY PLEASE SEE SEE NOTES FOR WHERE PATIENT RECIVES HER MEDTHADONE
--- NOTE | 2021-04-21 17:22 | PC.NURSE ---
Right posterior chest tube site drsg intact,no redness,no swelling,no crepitus
[2021-04-22] VITALS (15 sets, daily range): BP systolic 110–140; BP diastolic 56–78; PULSE 80–93; RESP 16–20; TEMP 36.3–37.9; O2SAT 95–98
[2021-04-22] MEDS: ceFAZolin Sodium/Dextrose,Iso 2 GM/50 ML PIGGYBACK IV ×3 (00:25→15:43)
[2021-04-22 05:57] LABS: Hematocrit 22.8 % (37.0-47.0); Mean Corpuscular HGB Conc 30.7 g/dl (31.0-35.0); Mean Corpuscular Hemoglobin 27.9 pg (27.0-33.0); Mean Corpuscular Volume 90.8 fL (80.0-98.0); Mean Platelet Volume 9.6 fL (9.4-12.3); Platelet Count 137 X10*3/uL (160-400); Red Blood Count 2.51 X10*6/uL (4.20-5.50); Red Cell Distribution Width 16.7 % (11.0-16.0); White Blood Count 14.2 X10*3/uL (4.8-10.8)
[2021-04-22 06:15] LABS: Alanine Aminotransferase < 6 U/L (0-31); Albumin Level 1.9 g/dL (3.5-5.0); Alkaline Phosphatase 76 U/L (39-117); Anion Gap 9 (12-20); Aspartate Amino Transferase 11 U/L (5-31); Bilirubin Total 0.5 mg/dL (0.0-1.0); Blood Urea Nitrogen 20 mg/dL (9-16); Calcium 8.5 mg/dL (8.4-10.2); Carbon Dioxide 29 mmol/L (22-29); Chloride 98 mmol/L (96-108); Creatinine Clr Calc Pharmacy 35.2; Estimated Glomerular Filt Rate 33; Glucose Fasting 90 mg/dL (60-99); Potassium 4.9 mmol/L (3.3-5.1); Sodium 131 mmol/L (135-145); Total Protein 6.7 g/dL (6.5-8.0)
[2021-04-22 06:41] LABS: Band Neutrophils Percent 32 % (3-5); Eosinophils Absolute Manual 0.3 X10*3/uL (0.0-0.4); Eosinophils Percent Manual 2 % (0-4); Lymphocytes Absolute Manual 1.1 X10*3/uL (1.2-4.9); Lymphocytes Percent Manual 8 % (20-40); Metamyelocytes Absolute 0.1 X10*3/uL; Metamyelocytes Percent 1 %; Microcytosis 1+ (5-14) /OIF; Monocytes Absolute Manual 0.9 X10*3/uL (0.1-1.2); Monocytes Percent Manual 6 % (2-11); Myelocytes Absolute 0.1 X10*/uL; Myelocytes Percent 1 %; Neutrophils Absolute Manual 11.6 X10*3/uL (2.0-8.3); Neutrophils Percent Manual 50 % (45-73); Platelet Estimate SLIGHTLY DECREASED (NORMAL); Platelet Morphology Comment NORMAL; Polychromasia 1+ (0-2) /OIF; RBC Morphology NOTED; Schistocytes 1+ (0-2) /OIF; Smudge Cells PRESENT
[2021-04-22] MEDS: oxyCODONE HCl Immed Release 5 MG TABLET PO ×3 (07:46→20:59)
[2021-04-22] MEDS: 0.9 % Sodium Chloride Flush 3 ML SYRINGE IVFLUSH (07:48)
[2021-04-22] MEDS: guaiFENesin DM 200/20/10 ML 10 ML SYRUP PO ×4 (07:48→20:57)
[2021-04-22] MEDS: methADONE HCl 20 MG/2 ML ORAL.CONC 55 MG PO (07:49)
--- NOTE | 2021-04-22 12:52 | HO.PM.IMPN ---
Subjective Subjective Date of Service: 04/22/21 Interval History: Doing well overnight. Chest tube removed earlier today without issue. Breathing slowly improving Review of Systems Denies chest pain Denies shortness of breath Denies nausea vomiting diarrhea Physical Exam Vital Signs: Vital Signs: Last Vital Signs Temp 99.4 F 04/22/21 12:00 Pulse 89 04/22/21 12:00 Resp 18 04/22/21 12:00 BP 113/57 L 04/22/21 12:00 Pulse Ox 96 04/22/21 08:00 BMI result Body Mass Index 24.2 Const: Other: awake alert oriented x3 no acute distress HENMT: Other: mucous membranes moist; oropharynx clear Chest: Other: Right-sided chest tube small bore pigtail catheter remains in place attached to -20 low wall suction.? No detectable chest tube air leak. Resp: Other: diminished at bases; scattered expiratory wheezes Cardio: Other: no S4; positive S1-S2; no S3 murmurs rubs or gallops GI: Other: soft nontender nondistended normoactive bowel sounds x4 quadrants. No rebound or guarding appreciated Neuro: Other: cranial nerves 2-12 grossly intact as tested. Motor is 5/5 all extremities. Sensation is intact. Cognition appropriate Extrem: Other: no edema bilaterally Objective Data Active Medications Acetaminophen (Acetaminophen 325 Mg Tablet) 650 mg PO Q6H PRN PRN Reason: Fever Last Admin: 04/18/21 20:20 Dose: 650 mg Documented by: VALENTIN Benzonatate (Benzonatate 100 Mg Capsule) 100 mg PO TID PRN PRN Reason: Cough Last Admin: 04/17/21 16:09 Dose: 100 mg Documented by: TON Guaifenesin/Dextromethorphan (Guaifenesin Dm 200/20/10 Ml 10 Ml Syrup) 10 ml PO QID CORAZON Last Admin: 04/22/21 12:49 Dose: 10 ml Documented by: NICOLA Hydroxyzine HCl (Hydroxyzine Hcl 25 Mg Tablet) 25 mg PO Q6H PRN PRN Reason: Anxiety Last Admin: 04/19/21 04:55 Dose: 25 mg Documented by: NICOLA Cefazolin Sodium/Dextrose (Ancef) 2 gm in 50 mls @ 100 mls/hr IV Q8H [facility] Last Infusion: 04/22/21 08:18 Dose: 0 mls/hr Documented by: JENI Melatonin (Melatonin 3 Mg Tablet) 6 mg PO BEDTIME PRN PRN Reason: Insomnia Last Admin: 04/17/21 20:01 Dose: 6 mg Documented by: TON Methadone HCl (Methadone Hcl 20 Mg/2 Ml Oral.Conc) 55 mg PO DAILY [facility] Last Admin: 04/22/21 07:49 Dose: 55 mg Documented by: NICOLA Nicotine Polacrilex (Nicotine Polacrilex 2 Mg Gum) 2 mg BUCCAL Q2H PRN PRN Reason: Nicotine Cravings Last Admin: 04/04/21 05:47 Dose: 2 mg Documented by: ODRISM Oxycodone HCl (Oxycodone Hcl Immed Release 5 Mg Tablet) 5 mg PO Q4H PRN PRN Reason: Pain, Moderate (Pain Scale 4-6 Last Admin: 04/22/21 12:49 Dose: 5 mg Documented by: NICOLA Pharmacy Consult (Consult Rx Perform Med Rec) 1 each MISCELLANE ONCE PRN PRN Reason: Consult order Senna (Sennosides 8.6 Mg Tablet) 17.2 mg PO BEDTIME PRN PRN Reason: Constipation Sodium Chloride (0.9 % Sodium Chloride Flush 3 Ml Syringe) 3 ml IVFLUSH QSHIFT [facility] Last Admin: 04/22/21 07:48 Dose: 3 ml Documented by: NICOLA Labs CBC & Chem 7: 04/22/21 05:22 04/22/21 05:22 Labs: Laboratory Results - last 24 hr 03/31/21 04/01/21 04/02/21 21:53 03:20 05:18 WBC 11.8 H 4.8 4.6 L MCV MCH MCHC RDW Plt Count MPV Immature Gran % (Auto) Neut % (Auto) Lymph % (Auto) Webster % (Auto) Eos % (Auto) Baso % (Auto) Lymph # (Auto) Webster # (Auto) Eos # (Auto) Baso # (Auto) Abs Immat Gran (auto) Absolute Neuts (auto) Absolute Nucleated RBC Nucleated RBC % (auto) Neutrophils % (Manual) Band Neutrophils % Lymphocytes % (Manual) Monocytes % (Manual) Eosinophils % (Manual) Metamyelocytes % Myelocytes % Abs Neuts (Manual) Lymphocytes # (Manual) Monocytes # (Manual) Eosinophils # (Manual) Metamyelocytes # Myelocytes # Smudge Cells Platelet Estimate Plt Morphology Comment RBC Morphology Polychromasia Microcytosis Schistocytes Anion Gap Estim Creat Clear Calc Estimated GFR Fasting Glucose Calcium Total Bilirubin AST ALT Alkaline Phosphatase Total Protein Albumin Blood Type Antibody Screen Crossmatch 04/03/21 04/04/21 04/05/21 05:15 08:16 08:34 WBC 4.5 L 8.1 9.8 MCV MCH MCHC RDW Plt Count MPV Immature Gran % (Auto) Neut % (Auto) Lymph % (Auto) Webster % (Auto) Eos % (Auto) Baso % (Auto) Lymph # (Auto) Webster # (Auto) Eos # (Auto) Baso # (Auto) Abs Immat Gran (auto) Absolute Neuts (auto) Absolute Nucleated RBC Nucleated RBC % (auto) Neutrophils % (Manual) Band Neutrophils % Lymphocytes % (Manual) Monocytes % (Manual) Eosinophils % (Manual) Metamyelocytes % Myelocytes % Abs Neuts (Manual) Lymphocytes # (Manual) Monocytes # (Manual) Eosinophils # (Manual) Metamyelocytes # Myelocytes # Smudge Cells Platelet Estimate Plt Morphology Comment RBC Morphology Polychromasia Microcytosis Schistocytes Anion Gap Estim Creat Clear Calc Estimated GFR Fasting Glucose Calcium Total Bilirubin AST ALT Alkaline Phosphatase Total Protein Albumin Blood Type Antibody Screen Crossmatch 04/06/21 04/07/21 04/08/21 04:35 08:12 05:20 WBC 10.1 11.7 H 13.8 H MCV MCH MCHC RDW Plt Count MPV Immature Gran % (Auto) Neut % (Auto) Lymph % (Auto) Webster % (Auto) Eos % (Auto) Baso % (Auto) Lymph # (Auto) Webster # (Auto) Eos # (Auto) Baso # (Auto) Abs Immat Gran (auto) Absolute Neuts (auto) Absolute Nucleated RBC Nucleated RBC % (auto) Neutrophils % (Manual) Band Neutrophils % Lymphocytes % (Manual) Monocytes % (Manual) Eosinophils % (Manual) Metamyelocytes % Myelocytes % Abs Neuts (Manual) Lymphocytes # (Manual) Monocytes # (Manual) Eosinophils # (Manual) Metamyelocytes # Myelocytes # Smudge Cells Platelet Estimate Plt Morphology Comment RBC Morphology Polychromasia Microcytosis Schistocytes Anion Gap Estim Creat Clear Calc Estimated GFR Fasting Glucose Calcium Total Bilirubin AST ALT Alkaline Phosphatase Total Protein Albumin Blood Type Antibody Screen Crossmatch 04/09/21 04/10/21 04/11/21 05:56 05:17 05:38 WBC 13.1 H 12.6 H 12.2 H MCV MCH MCHC RDW Plt Count MPV Immature Gran % (Auto) Neut % (Auto) Lymph % (Auto) Webster % (Auto) Eos % (Auto) Baso % (Auto) Lymph # (Auto) Webster # (Auto) Eos # (Auto) Baso # (Auto) Abs Immat Gran (auto) Absolute Neuts (auto) Absolute Nucleated RBC Nucleated RBC % (auto) Neutrophils % (Manual) Band Neutrophils % Lymphocytes % (Manual) Monocytes % (Manual) Eosinophils % (Manual) Metamyelocytes % Myelocytes % Abs Neuts (Manual) Lymphocytes # (Manual) Monocytes # (Manual) Eosinophils # (Manual) Metamyelocytes # Myelocytes # Smudge Cells Platelet Estimate Plt Morphology Comment RBC Morphology Polychromasia Microcytosis Schistocytes Anion Gap Estim Creat Clear Calc Estimated GFR Fasting Glucose Calcium Total Bilirubin AST ALT Alkaline Phosphatase Total Protein Albumin Blood Type Antibody Screen Crossmatch 04/12/21 04/13/21 04/14/21 05:36 04:38 08:29 WBC 12.1 H 11.0 H 11.5 H MCV MCH MCHC RDW Plt Count MPV Immature Gran % (Auto) Neut % (Auto) Lymph % (Auto) Webster % (Auto) Eos % (Auto) Baso % (Auto) Lymph # (Auto) Webster # (Auto) Eos # (Auto) Baso # (Auto) Abs Immat Gran (auto) Absolute Neuts (auto) Absolute Nucleated RBC Nucleated RBC % (auto) Neutrophils % (Manual) Band Neutrophils % Lymphocytes % (Manual) Monocytes % (Manual) Eosinophils % (Manual) Metamyelocytes % Myelocytes % Abs Neuts (Manual) Lymphocytes # (Manual) Monocytes # (Manual) Eosinophils # (Manual) Metamyelocytes # Myelocytes # Smudge Cells Platelet Estimate Plt Morphology Comment RBC Morphology Polychromasia Microcytosis Schistocytes Anion Gap Estim Creat Clear Calc Estimated GFR Fasting Glucose Calcium Total Bilirubin AST ALT Alkaline Phosphatase Total Protein Albumin Blood Type Antibody Screen Crossmatch 04/18/21 04/19/21 04/21/21 06:52 06:11 05:44 WBC 13.4 H 14.7 H 15.5 H MCV MCH MCHC RDW Plt Count MPV Immature Gran % (Auto) Neut % (Auto) Lymph % (Auto) Webster % (Auto) Eos % (Auto) Baso % (Auto) Lymph # (Auto) Webster # (Auto) Eos # (Auto) Baso # (Auto) Abs Immat Gran (auto) Absolute Neuts (auto) Absolute Nucleated RBC Nucleated RBC % (auto) Neutrophils % (Manual) Band Neutrophils % Lymphocytes % (Manual) Monocytes % (Manual) Eosinophils % (Manual) Metamyelocytes % Myelocytes % Abs Neuts (Manual) Lymphocytes # (Manual) Monocytes # (Manual) Eosinophils # (Manual) Metamyelocytes # Myelocytes # Smudge Cells Platelet Estimate Plt Morphology Comment RBC Morphology Polychromasia Microcytosis Schistocytes Anion Gap Estim Creat Clear Calc Estimated GFR Fasting Glucose Calcium Total Bilirubin AST ALT Alkaline Phosphatase Total Protein Albumin Blood Type Antibody Screen Crossmatch 04/22/21 04/22/21 04/22/21 05:22 05:22 11:24 WBC 14.2 H MCV 90.8 MCH 27.9 MCHC 30.7 L RDW 16.7 H Plt Count 137 L MPV 9.6 Immature Gran % (Auto) Cancelled Neut % (Auto) Cancelled Lymph % (Auto) Cancelled Webster % (Auto) Cancelled Eos % (Auto) Cancelled Baso % (Auto) Cancelled Lymph # (Auto) Cancelled Webster # (Auto) Cancelled Eos # (Auto) Cancelled Baso # (Auto) Cancelled Abs Immat Gran (auto) Cancelled Absolute Neuts (auto) Cancelled Absolute Nucleated RBC 0.000 Nucleated RBC % (auto) 0.0 Neutrophils % (Manual) 50 Band Neutrophils % 32 H Lymphocytes % (Manual) 8 L Monocytes % (Manual) 6 Eosinophils % (Manual) 2 Metamyelocytes % 1 Myelocytes % 1 Abs Neuts (Manual) 11.6 H Lymphocytes # (Manual) 1.1 L Monocytes # (Manual) 0.9 Eosinophils # (Manual) 0.3 Metamyelocytes # 0.1 Myelocytes # 0.1 Smudge Cells PRESENT Platelet Estimate SLIGHTLY DECREASED Plt Morphology Comment NORMAL RBC Morphology NOTED Polychromasia 1+ (0-2) Microcytosis 1+ (5-14) Schistocytes 1+ (0-2) Anion Gap 9 L Estim Creat Clear Calc 35.2 Estimated GFR 33 Fasting Glucose 90 Calcium 8.5 Total Bilirubin 0.5 AST 11 ALT < 6 Alkaline Phosphatase 76 Total Protein 6.7 Albumin 1.9 L Blood Type O Positive Antibody Screen NEGATIVE Crossmatch See Detail Microbiology Microbiology Results: Microbiology 04/16/21 16:53 Gram Stain - Final Pleural Fluid Routine Culture - Final No growth after 2 days Anaerobic Culture - Final NO GROWTH AFTER 5 DAYS Assessment and Plan (1) Infective endocarditis: Status: Acute (2) Bacteremia: Status: Acute (3) MELITON (acute kidney injury): Status: Acute Assessment and Plan: 25yo F with history of IV heroin + cocaine abuse, recent RUE cellulitis with open wound,p/w SOB and admitted for severe sepsis found to be bacteremic with TV endocarditis complicated by cavitary septic emboli + bilateral loculated pleural effusions; doing well 2nd chest tube removed today 1. 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 S/P 7d of vancomycin, now on cefazolin 2g IV q8h day #13 , repeat blood culture 04/07 clear. ? Continue current treatment right IJ catheter placed by IR 04/16 due to no IV access. ? 2.Loculated B pleural effusions/# small L pneumothorax Second chest tube removed today by thoracic surgery .... Doing well. ? 3.Anemia(chronic) Status post 6 units of packed RBC ( tranfused 3u pRBCs 04/03/21 + 2u pRBCs 04/07/21; 1 unit packed RBC on 04/13 ) and 1 unit on 04/18 Hemoglobin 7 this a.m.. .. Will transfer 2 units of packed cells and follow hemoglobin in a.m. 4.Opioid use disorder Continue methadone 55 mg/d; Addiction Medicine following closely, recommend to continue current doses since patient noted to be somnolent # VTE ppx - SCDs ?? Quality Stroke Does the patient have a stroke diagnosis?: No VTE Prior VTE?: No VTE Risk Level:: Medical - moderate - high VTE Device Contraindication: Treatment Not Indicated VTE Drug Contraindication: N/A - Med Ordered
[2021-04-22] MEDS: Acetaminophen 325 MG TABLET 650 MG PO (13:06)
--- NOTE | 2021-04-22 13:14 | PC.NURSE ---
Temp 100.2 and [address] Tipton ordered to give tylenol then proceed with transfusion.
--- NOTE | 2021-04-22 14:44 | MHC.CLN ---
F/U CHEST TUBE REMOVED. APPEARS TO BE EATING WELL. DIET= REGULAR WITH ENSURE TID. ENSURE PROVIDES 10[address] KCAL, [address] TO FOLLOW WEEKLY.
--- NOTE | 2021-04-22 15:48 | PC.NURSE ---
P blood transfusion finished when RN walked in to assess patient,blue port occluded ,unable to flush after transfusion I assessed by second RN but unable to flush,Dr. Tipton notfied of the above E -OK to use 2 other ports in TLC
[2021-04-23] VITALS (8 sets, daily range): BP systolic 114–150; BP diastolic 58–100; PULSE 78–88; RESP 17–20; TEMP 35.3–37.3; O2SAT 92–97
[2021-04-23 05:53] LABS: MANUAL DIFF FLAG NO
[2021-04-23 05:58] LABS: Basophils Absolute Auto 0.1 X10*3/uL (0.0-0.2); Basophils Percent Auto 0.5 % (0-2); Eosinophils Absolute Auto 0.4 X10*3/uL (0.0-0.4); Eosinophils Percent Auto 2.4 % (0-4); Hematocrit 28.1 % (37.0-47.0); Hemoglobin 8.8 g/dl (12.0-16.0); Imm Gran Pct Auto 4.1 % (0.0-0.4); Lymphocytes Absolute Auto 2.3 X10*3/uL (1.2-4.9); Lymphocytes Percent Auto 15.4 % (20-40); Mean Corpuscular HGB Conc 31.3 g/dl (31.0-35.0); Mean Corpuscular Hemoglobin 28.3 pg (27.0-33.0); Mean Corpuscular Volume 90.4 fL (80.0-98.0); Mean Platelet Volume 9.4 fL (9.4-12.3); Monocytes Absolute Auto 1.4 X10*3/uL (0.1-1.2); Monocytes Percent Auto 9.5 % (2-11); Neutrophils Absolute Auto 10.1 x10*3/uL (2.0-8.3); Neutrophils Percent Auto 68.1 % (45-73); Platelet Count 152 X10*3/uL (160-400); Red Blood Count 3.11 X10*6/uL (4.20-5.50); Red Cell Distribution Width 16.1 % (11.0-16.0); White Blood Count 14.8 X10*3/uL (4.8-10.8)
[2021-04-23 06:34] LABS: Alanine Aminotransferase < 6 U/L (0-31); Alkaline Phosphatase 79 U/L (39-117); Anion Gap 10 (12-20); Aspartate Amino Transferase 11 U/L (5-31); Bilirubin Total 0.4 mg/dL (0.0-1.0); Blood Urea Nitrogen 21 mg/dL (9-16); Calcium 8.5 mg/dL (8.4-10.2); Carbon Dioxide 28 mmol/L (22-29); Chloride 100 mmol/L (96-108); Creatinine Clr Calc Pharmacy 35.2; Estimated Glomerular Filt Rate 33; Glucose Fasting 87 mg/dL (60-99); Sodium 133 mmol/L (135-145); Total Protein 6.9 g/dL (6.5-8.0)
[2021-04-23] MEDS: methADONE HCl 20 MG/2 ML ORAL.CONC 55 MG PO (09:44)
[2021-04-23] MEDS: guaiFENesin DM 200/20/10 ML 10 ML SYRUP PO ×3 (09:44→20:25)
[2021-04-23] MEDS: Acetaminophen 325 MG TABLET 650 MG PO (09:59)
[2021-04-23] MEDS: oxyCODONE HCl Immed Release 5 MG TABLET PO (10:20)
--- NOTE | 2021-04-23 11:03 | PC.NURSE ---
Wound assessment completed today. Patient's open wound on right arm has beefy red granulation, Puracol plus applied to wound bed covered with non woven gauze and roll gauze. Also there is a incision on right back C/D/I. No other skin issues noted at this time.
--- NOTE | 2021-04-23 11:46 | P.PNNP_ITS ---
Subjective Subjective Date of Service: 04/28/21 Interval history: Doing well overnight. Chest tube removed earlier today without issue. Breathing slowly improving Physical Exam Vital Signs: Vital Signs: Last Vital Signs Temp 99.2 F 04/23/21 08:34 Pulse 83 04/23/21 08:34 Resp 20 04/23/21 08:34 BP 122/66 04/23/21 08:34 Pulse Ox 95 04/23/21 08:34 BMI result Body Mass Index 24.2 Const: Other: Disheveled General: alert Orientation/consciousness: patient oriented x3 Limitations: no limitations Eyes: General: appearance normal, both eyes and all related structures Pupils: Equal, round and reactive pupils present Neck: Neck: Yes normal visual inspection Chest: Chest palpation & inspection: normal inspection of the chest Resp: Other: coarse breath sounds throughout tachypnea with a rate of 30 Cardio: Rate: regular rate Rhythm: regular rhythm Peripheral pulses: Peripheral pulses 2+ throughout GI: Inspection: Yes normal to inspection Palpation (GI): Soft to palpation and nontender Auscultation: normal bowel sounds Back/Spine/Pelvis: Thoracic/Lumbar Spine: thoracic and lumbar spine normal to inspection Skin: General skin exam: petechiae Neuro: Other: diffusely weak General: patient oriented x3, moves all extremities, normal sensation to monofilament and Unable to assess gait Cranial nerves: Yes Equal, round and reactive pupils present Cognition (Neuro): normal cognition Speech: No Abnormal speech present Gait exam (Neuro): Unable to assess gait Motor exam (neuro): 5/5 motor strength present throughout Extrem: Other: General: Yes normal to inspection, Yes no pedal edema and Yes no calf tenderness Objective Data Labs CBC & Chem 7: 04/28/21 05:30 04/28/21 05:30 Labs: Laboratory Results - last 24 hr 04/22/21 04/23/21 04/23/21 11:24 05:19 05:19 WBC 14.8 H RBC 3.11 L D Hgb 8.8 L D Hct 28.1 L D MCV 90.4 MCH 28.3 MCHC 31.3 RDW 16.1 H Plt Count 152 L MPV 9.4 Immature Gran % (Auto) 4.1 H Neut % (Auto) 68.1 Lymph % (Auto) 15.[address] [place] % (Auto) 9.5 Eos % (Auto) 2.4 Baso % (Auto) 0.5 Lymph # (Auto) 2.3 [place] # (Auto) 1.4 H Eos # (Auto) 0.4 Baso # (Auto) 0.1 Abs Immat Gran (auto) 0.60 H Absolute Neuts (auto) 10.1 H Absolute Nucleated RBC 0.000 Nucleated RBC % (auto) 0.0 Sodium 133 L Potassium 5.0 Chloride 100 Carbon Dioxide 28 Anion Gap 10 L BUN 21 H Creatinine 1.87 H Estim Creat Clear Calc 35.2 Estimated GFR 33 Fasting Glucose 87 Calcium 8.5 Total Bilirubin 0.4 AST 11 ALT < 6 Alkaline Phosphatase 79 Total Protein 6.9 Albumin 2.0 L Blood Type O Positive Antibody Screen NEGATIVE Crossmatch See Detail Microbiology Microbiology Results: Microbiology 04/16/21 16:53 Pleural Fluid Gram Stain - Final 04/16/21 16:53 Pleural Fluid Routine Culture - Final No growth after 2 days 04/16/21 16:53 Pleural Fluid Anaerobic Culture - Final NO GROWTH AFTER 5 DAYS 04/08/21 16:00 Pleural Fluid Gram Stain - Final 04/08/21 16:00 Pleural Fluid Routine Culture - Final No growth after 2 days 04/08/21 16:00 Pleural Fluid Anaerobic Culture - Final NO GROWTH AFTER 5 DAYS 04/07/21 08:23 Blood - Venous Blood Culture - Final No growth after 5 days. 04/07/21 08:12 Blood - Venous Blood Culture - Final No growth after 5 days. 03/31/21 21:53 Blood - Venous Blood Culture - Final Staphylococcus aureus Strep dysgalactiae ssp equisim 03/31/21 21:53 Blood - Venous Blood Culture - Final Staphylococcus aureus Strep dysgalactiae ssp equisim 04/01/21 Unknown Urine clean catch - Urine fox top Urine Culture - Final Procedures Date of Service Date of Service: 04/23/21 Assessment & Plan Assessment and plan (1) Infective endocarditis: Status: Acute (2) Bacteremia: Status: Acute (3) MELITON (acute kidney injury): Status: Acute Assessment and Plan: 25yo F with history of IV heroin + cocaine abuse, recent RUE cellulitis with open wound,p/w SOB and admitted for severe sepsis found to be bacteremic with TV endocarditis complicated by cavitary septic emboli + bilateral loculated pleural effusions; doing well MELITON - possible Post infectious GN With Hep C and low compliments DDX includes MPGN vs others Would need kidney biopsy ?? Time Spent With Patient Time: Total time spent is greater than 50% in coordination of care (as do cumented) at patient's floor/unit and/or counseling patient: Time with patient: 15 - 24 minutes Progress Note: Quality Stroke Does the patient have a stroke diagnosis?: No
[2021-04-23] MEDS: ceFAZolin Sodium/Dextrose,Iso 2 GM/50 ML PIGGYBACK IV ×2 (13:19→20:25)
--- NOTE | 2021-04-23 14:38 | HO.PM.IMPN ---
Subjective Subjective Date of Service: 04/23/21 Interval History: No acute issues overnight. Doing well status post chest tube removal Review of Systems Denies chest pain Denies shortness of breath Physical Exam Vital Signs: Vital Signs: Last Vital Signs Temp 99.2 F 04/23/21 12:00 Pulse 80 04/23/21 12:00 Resp 18 04/23/21 12:00 BP 121/60 04/23/21 12:00 Pulse Ox 92 04/23/21 12:00 BMI result Body Mass Index 24.2 Const: Other: awake alert oriented x3 no acute distress HENMT: Other: mucous membranes moist; oropharynx clear Chest: Other: Right-sided chest tube small bore pigtail catheter remains in place attached to -20 low wall suction.? No detectable chest tube air leak. Resp: Other: diminished at bases; scattered expiratory wheezes Cardio: Other: no S4; positive S1-S2; no S3 murmurs rubs or gallops GI: Other: soft nontender nondistended normoactive bowel sounds x4 quadrants. No rebound or guarding appreciated Neuro: Other: cranial nerves 2-12 grossly intact as tested. Motor is 5/5 all extremities. Sensation is intact. Cognition appropriate Extrem: Other: no edema bilaterally Objective Data Active Medications Acetaminophen (Acetaminophen 325 Mg Tablet) 650 mg PO Q6H PRN PRN Reason: Fever Last Admin: 04/23/21 09:59 Dose: 650 mg Documented by: JENI Benzonatate (Benzonatate 100 Mg Capsule) 100 mg PO TID PRN PRN Reason: Cough Last Admin: 04/17/21 16:09 Dose: 100 mg Documented by: TON Guaifenesin/Dextromethorphan (Guaifenesin Dm 200/20/10 Ml 10 Ml Syrup) 10 ml PO QID [facility] Last Admin: 04/23/21 13:19 Dose: 10 ml Documented by: JENI Hydroxyzine HCl (Hydroxyzine Hcl 25 Mg Tablet) 25 mg PO Q6H PRN PRN Reason: Anxiety Last Admin: 04/19/21 04:55 Dose: 25 mg Documented by: NICOLA Cefazolin Sodium/Dextrose (Ancef) 2 gm in 50 mls @ 100 mls/hr IV Q8H [facility] Last Infusion: 04/23/21 13:51 Dose: 0 mls/hr Documented by: JENI Melatonin (Melatonin 3 Mg Tablet) 6 mg PO BEDTIME PRN PRN Reason: Insomnia Last Admin: 04/17/21 20:01 Dose: 6 mg Documented by: TON Methadone HCl (Methadone Hcl 20 Mg/2 Ml Oral.Conc) 55 mg PO DAILY [facility] Last Admin: 04/23/21 09:44 Dose: 55 mg Documented by: JENI Nicotine Polacrilex (Nicotine Polacrilex 2 Mg Gum) 2 mg BUCCAL Q2H PRN PRN Reason: Nicotine Cravings Last Admin: 04/04/21 05:47 Dose: 2 mg Documented by: ODRISKelly Oxycodone HCl (Oxycodone Hcl Immed Release 5 Mg Tablet) 5 mg PO Q4H PRN PRN Reason: Pain, Moderate (Pain Scale 4-6 Last Admin: 04/23/21 10:20 Dose: 5 mg Documented by: JENI Pharmacy Consult (Consult Rx Perform Med Rec) 1 each MISCELLANE ONCE PRN PRN Reason: Consult order Senna (Sennosides 8.6 Mg Tablet) 17.2 mg PO BEDTIME PRN PRN Reason: Constipation Sodium Chloride (0.9 % Sodium Chloride Flush 3 Ml Syringe) 3 ml IVFLUSH QSHIFT [facility] Last Admin: 04/23/21 07:35 Dose: Not Given Documented by: LALO Non-Admin Reason: TLC FLUSH ONLY Labs CBC & Chem 7: 04/23/21 05:19 04/23/21 05:19 Labs: Laboratory Results - last 24 hr 04/22/21 04/23/21 04/23/21 11:24 05:19 05:19 MCV 90.4 MCH 28.3 MCHC 31.3 RDW 16.1 H Plt Count 152 L MPV 9.4 Immature Gran % (Auto) 4.1 H Neut % (Auto) 68.1 Lymph % (Auto) 15.4 L [place] % (Auto) 9.5 Eos % (Auto) 2.4 Baso % (Auto) 0.5 Lymph # (Auto) 2.3 [place] # (Auto) 1.4 H Eos # (Auto) 0.4 Baso # (Auto) 0.1 Abs Immat Gran (auto) 0.60 H Absolute Neuts (auto) 10.1 H Absolute Nucleated RBC 0.000 Nucleated RBC % (auto) 0.0 Anion Gap 10 L Estim Creat Clear Calc 35.2 Estimated GFR 33 Fasting Glucose 87 Calcium 8.5 Total Bilirubin 0.4 AST 11 ALT < 6 Alkaline Phosphatase 79 Total Protein 6.9 Albumin 2.0 L Blood Type O Positive Antibody Screen NEGATIVE Crossmatch See Detail Microbiology Microbiology Results: Microbiology 04/16/21 16:53 Gram Stain - Final Pleural Fluid Routine Culture - Final No growth after 2 days Anaerobic Culture - Final NO GROWTH AFTER 5 DAYS Assessment and Plan (1) Infective endocarditis: Status: Acute (2) Cocaine use disorder, severe, dependence: Status: Acute (3) Opioid use disorder, severe, dependence: Status: Acute (4) MELITON (acute kidney injury): Status: Acute Assessment and Plan: 25yo F with history of IV heroin + cocaine abuse, recent RUE cellulitis with open wound,p/w SOB and admitted for severe sepsis found to be bacteremic with TV endocarditis complicated by cavitary septic emboli + bilateral loculated pleural effusions; doing well 2nd chest tube removed today 1. 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 S/P 7d of vancomycin, now on cefazolin 2g IV q8h day #, repeat blood culture 04/07 clear. ? Continue current treatment right IJ catheter placed by IR 04/16 due to no IV access. ? 2.Loculated B pleural effusions/# small L pneumothorax Second chest tube removed today by thoracic surgery .... Doing well. Pain control adequate ? 3.Anemia(chronic) Status post 6 units of packed RBC ( tranfused 3u pRBCs 04/03/21 + 2u pRBCs 04/07/21; 1 unit packed RBC on 04/13 ) and 1 unit on 04/18 Hemoglobin 8.8 this a.m.. .. Total PRBC 10 units to date 4.Opioid use disorder Continue methadone 55 mg/d; Addiction Medicine following closely, recommend to continue current doses since patient noted to be somnolent at times # VTE ppx - SCDs ?? Quality Stroke Does the patient have a stroke diagnosis?: No VTE Prior VTE?: No VTE Risk Level:: Medical - moderate - high VTE Device Contraindication: Treatment Not Indicated VTE Drug Contraindication: N/A - Med Ordered
--- NOTE | 2021-04-23 16:08 | MHC.CM.PN ---
NURSE DIETETIC INTERN NOTE ELECTRONIC MEDICAL RECORD REVIEWED ALONG WITH CASE DISCUSSED ON MULTIPLE DISCIPLIANRY ROUNDS, AREA AND BROAD SEARCH SENT ALSO INCLUDED BILL ARANA, HEATHER ABRAMS Tke methadone
[2021-04-23] MEDS: 0.9 % Sodium Chloride Flush 3 ML SYRINGE IVFLUSH (21:00)
[2021-04-24] VITALS: BP 124/59; PULSE 87; RESP 19; TEMP 36.6; O2SAT 96
[2021-04-24] MEDS: ceFAZolin Sodium/Dextrose,Iso 2 GM/50 ML PIGGYBACK IV ×3 (03:59→19:32)
[2021-04-24 04:00] VITALS: BP 118/64; PULSE 87; RESP 20; TEMP 36.8; O2SAT 95
[2021-04-24 08:00] VITALS: BP 125/73; PULSE 77; RESP 20; TEMP 36.1; O2SAT 96
[2021-04-24] MEDS: guaiFENesin DM 200/20/10 ML 10 ML SYRUP PO ×4 (08:59→20:31)
[2021-04-24] MEDS: methADONE HCl 20 MG/2 ML ORAL.CONC 55 MG PO (09:00)
[2021-04-24 10:32] LABS: Anion Gap 10 (12-20); Blood Urea Nitrogen 21 mg/dL (9-16); Calcium 8.4 mg/dL (8.4-10.2); Carbon Dioxide 30 mmol/L (22-29); Chloride 99 mmol/L (96-108); Creatinine Clr Calc Pharmacy 31.6; Estimated Glomerular Filt Rate 30; Glucose Random 131 mg/dL (60-115); Potassium 4.7 mmol/L (3.3-5.1); Sodium 134 mmol/L (135-145)
[2021-04-24 12:00] VITALS: BP 125/78; PULSE 80; RESP 18; TEMP 36.1; O2SAT 97
[2021-04-24] MEDS: 0.9 % Sodium Chloride 1,000 ML 125 ML IVCONT ×2 (12:28→20:31)
--- NOTE | 2021-04-24 15:14 | MHC.CM.PN ---
nurse case management note referrals made and clincial updates given on 04/23/[address] [facility] and [facility] referras[facility] in the [facility] ,, patient will need a pic line and lomng term iv abx , see addiciton recovery nurse for placement of methadone clinic and prescribing provider on this admission is chaparro love. she will here through the weekend seconday to needing ins auth
[2021-04-24 16:00] VITALS: BP 133/80; PULSE 78; RESP 17; TEMP 36.4; O2SAT 97
--- NOTE | 2021-04-24 17:03 | HO.PM.IMPN ---
Subjective Subjective Date of Service: 04/24/21 Interval History: Feels less short of breath Has rash on legs, some on arms as well No fever SCr rising Review of Systems Review of Systems: Yes all other systems are reviewed and are negative Physical Exam Vital Signs: Vital Signs: Last Vital Signs Temp 97.0 F 04/24/21 12:00 Pulse 80 04/24/21 12:00 Resp 18 04/24/21 12:00 BP 125/78 04/24/21 12:00 Pulse Ox 97 04/24/21 12:00 BMI result Body Mass Index 24.2 Gen: in no acute distress HEENT: sclera anicteric, moist mucus membranes Neck: supple, RIJ 3LC placed 04/16/21 Lungs: decreased air entry R base Heart: regular rate and rhythm, no murmurs Abd: soft, non-tender, non-distended Ext: no edema Skin: warm/well-perfused, palpable purpuric papules and patches on legs, some on arms as well Neuro: alert and oriented x3, no focal findings Psych: appropriate affect Objective Data Active Medications Acetaminophen (Acetaminophen 325 Mg Tablet) 650 mg PO Q6H PRN PRN Reason: Fever Last Admin: 04/23/21 09:59 Dose: 650 mg Documented by: JENI Benzonatate (Benzonatate 100 Mg Capsule) 100 mg PO TID PRN PRN Reason: Cough Last Admin: 04/17/21 16:09 Dose: 100 mg Documented by: TON Guaifenesin/Dextromethorphan (Guaifenesin Dm 200/20/10 Ml 10 Ml Syrup) 10 ml PO QID [facility] Last Admin: 04/24/21 12:29 Dose: 10 ml Documented by: JAY Hydroxyzine HCl (Hydroxyzine Hcl 25 Mg Tablet) 25 mg PO Q6H PRN PRN Reason: Anxiety Last Admin: 04/19/21 04:55 Dose: 25 mg Documented by: NICOLA Cefazolin Sodium/Dextrose (Ancef) 2 gm in 50 mls @ 100 mls/hr IV Q8H [facility] Last Infusion: 04/24/21 13:17 Dose: 0 mls/hr Documented by: JAY Sodium Chloride (Ns) 1,000 mls @ 125 mls/hr IVCONT .Q8H [facility] Stop: 04/25/21 01:44 Last Admin: 04/24/21 12:28 Dose: 125 mls/hr Documented by: JAY Melatonin (Melatonin 3 Mg Tablet) 6 mg PO BEDTIME PRN PRN Reason: Insomnia Last Admin: 04/17/21 20:01 Dose: 6 mg Documented by: TON Methadone HCl (Methadone Hcl 20 Mg/2 Ml Oral.Conc) 55 mg PO DAILY [facility] Last Admin: 04/24/21 09:00 Dose: 55 mg Documented by: JAY Nicotine Polacrilex (Nicotine Polacrilex 2 Mg Gum) 2 mg BUCCAL Q2H PRN PRN Reason: Nicotine Cravings Last Admin: 04/04/21 05:47 Dose: 2 mg Documented by: ODRISM Oxycodone HCl (Oxycodone Hcl Immed Release 5 Mg Tablet) 5 mg PO Q4H PRN PRN Reason: Pain, Moderate (Pain Scale 4-6 Last Admin: 04/23/21 10:20 Dose: 5 mg Documented by: JENI Pharmacy Consult (Consult Rx Perform Med Rec) 1 each MISCELLANE ONCE PRN PRN Reason: Consult order Senna (Sennosides 8.6 Mg Tablet) 17.2 mg PO BEDTIME PRN PRN Reason: Constipation Sodium Chloride (0.9 % Sodium Chloride Flush 3 Ml Syringe) 3 ml IVFLUSH QSHIFT [facility] Last Admin: 04/24/21 15:46 Dose: Not Given Documented by: JAY Non-Admin Reason: IV Running Labs CBC & Chem 7: 04/23/21 05:19 04/24/21 09:54 Labs: Laboratory Results - last 24 hr 04/24/21 09:54 Anion Gap 10 L Estim Creat Clear Calc 31.6 Estimated GFR 30 Random Glucose 131 H Calcium 8.4 Impressions Chest X-Ray 04/24/21 10:10 IMPRESSION: Bilateral patchy infiltrates demonstrating similar distribution with mild interval increase in the right midlung. Persistent small right pleural effusion. No overt pneumothorax. Assessment and Plan (1) Infective endocarditis: Status: Acute (2) Cocaine use disorder, severe, dependence: Status: Acute (3) Opioid use disorder, severe, dependence: Status: Acute (4) MELITON (acute kidney injury): Status: Acute Assessment and Plan: hospital d#24 25yo F with history of IV heroin + cocaine abuse, recent RUE cellulitis with open wound p/w SOB and admitted for severe sepsis found to be bacteremic with TV endocarditis complicated by cavitary septic emboli + bilateral loculated pleural effusions # MSSA + Streptococcus dysgalactiae bacteremia/infective endocarditis with 2.77 x 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 RIJ CVC placed 04/16/21 but will need PICC line to complete treatment - L chest tube placed 04/08/21 and underwent chemical decortication with tPA x3d, removed 04/15/21 - R chest tube placed 04/16/21 with small lateral PTX likely trapped lung, removed 04/21/21 # MELITON - send urine studies including eosinophils, check renal US, and consult Nephrology. give IV normal saline. 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
--- NOTE | 2021-04-24 18:57 | PM.PNNEP ---
Subjective Subjective Date of Service: 04/28/21 Interval history: Feels less short of breath Has rash on legs, some on arms as well No fever SCr rising Physical Exam Vital Signs: Vital Signs: Last Vital Signs Temp 97.5 F 04/24/21 16:00 Pulse 78 04/24/21 16:00 Resp 17 04/24/21 16:00 BP 133/80 04/24/21 16:00 Pulse Ox 97 04/24/21 16:00 BMI result Body Mass Index 24.2 Const: Other: Disheveled General: alert Orientation/consciousness: patient oriented x3 Limitations: no limitations HENMT: Other: tacky mucous membranes Head: Yes normal to inspection Ears: hearing grossly normal bilaterally General nose exam: Normal external nose present Face and sinus: Yes normal facial exam Mouth: Normal oral and palatal mucosa present Throat: Yes posterior oropharynx normal Eyes: General: appearance normal, both eyes and all related structures Pupils: Equal, round and reactive pupils present Neck: Neck: Yes normal visual inspection Chest: Chest palpation & inspection: normal inspection of the chest Resp: Other: coarse breath sounds throughout tachypnea with a rate of 30 Cardio: Rate: regular rate Rhythm: regular rhythm Peripheral pulses: Peripheral pulses 2+ throughout GI: Inspection: Yes normal to inspection Palpation (GI): Soft to palpation and nontender Auscultation: normal bowel sounds Back/Spine/Pelvis: Thoracic/Lumbar Spine: thoracic and lumbar spine normal to inspection Skin: General skin exam: no rashes or lesions noted and petechiae Neuro: Other: diffusely weak General: patient oriented x3, moves all extremities, normal sensation to monofilament and Unable to assess gait Cranial nerves: Yes Equal, round and reactive pupils present Cognition (Neuro): normal cognition Speech: No Abnormal speech present Gait exam (Neuro): Unable to assess gait Motor exam (neuro): 5/5 motor strength present throughout Extrem: Other: General: Yes normal to inspection, Yes no pedal edema and Yes no calf tenderness Objective Data Labs CBC & Chem 7: 04/28/21 05:30 04/28/21 05:30 Labs: Laboratory Results - last 24 hr 04/24/21 09:54 Sodium 134 L Potassium 4.7 Chloride 99 Carbon Dioxide 30 H Anion Gap 10 L BUN 21 H Creatinine 2.08 H Estim Creat Clear Calc 31.6 Estimated GFR 30 Random Glucose 131 H Calcium 8.4 Microbiology Microbiology Results: Microbiology 04/16/21 16:53 Pleural Fluid Gram Stain - Final 04/16/21 16:53 Pleural Fluid Routine Culture - Final No growth after 2 days 04/16/21 16:53 Pleural Fluid Anaerobic Culture - Final NO GROWTH AFTER 5 DAYS 04/08/21 16:00 Pleural Fluid Gram Stain - Final 04/08/21 16:00 Pleural Fluid Routine Culture - Final No growth after 2 days 04/08/21 16:00 Pleural Fluid Anaerobic Culture - Final NO GROWTH AFTER 5 DAYS 04/07/21 08:23 Blood - Venous Blood Culture - Final No growth after 5 days. 04/07/21 08:12 Blood - Venous Blood Culture - Final No growth after 5 days. 03/31/21 21:53 Blood - Venous Blood Culture - Final Staphylococcus aureus Strep dysgalactiae ssp equisim 03/31/21 21:53 Blood - Venous Blood Culture - Final Staphylococcus aureus Strep dysgalactiae ssp equisim 04/01/21 Unknown Urine clean catch - Urine fox top Urine Culture - Final Procedures Date of Service Date of Service: 04/24/21 Assessment & Plan Assessment and plan (1) Infective endocarditis: Status: Acute (2) Bacteremia: Status: Acute (3) MELITON (acute kidney injury): Status: Acute Assessment and Plan: 25yo F with history of IV heroin + cocaine abuse, recent RUE cellulitis with open wound,p/w SOB and admitted for severe sepsis found to be bacteremic with TV endocarditis complicated by cavitary septic emboli + bilateral loculated pleural effusions; doing well MELITON - possible Post infectious GN With Hep C and low compliments DDX includes MPGN vs others Would need kidney biopsy Discussed and she is refusing ?? Time Spent With Patient Time: Total time spent is greater than 50% in coordination of care (as documented) at patient's floor/unit and/or counseling patient: Time with patient: 15 - 24 minutes Progress Note: Quality Stroke Does the patient have a stroke diagnosis?: No
[2021-04-24 20:00] VITALS: BP 133/72; PULSE 90; RESP 17; TEMP 36.6; O2SAT 97
[2021-04-24] MEDS: 0.9 % Sodium Chloride Flush 3 ML SYRINGE IVFLUSH (20:31)
[2021-04-25] VITALS: BP 124/60; PULSE 84; RESP 17; TEMP 36.5; O2SAT 96
[2021-04-25] MEDS: ceFAZolin Sodium/Dextrose,Iso 2 GM/50 ML PIGGYBACK IV (03:50)
[2021-04-25 04:00] VITALS: BP 121/68; PULSE 81; RESP 17; TEMP 36.7; O2SAT 97
[2021-04-25 06:36] LABS: Hematocrit 27.5 % (37.0-47.0); Hemoglobin 8.3 g/dl (12.0-16.0); Mean Corpuscular HGB Conc 30.2 g/dl (31.0-35.0); Mean Corpuscular Hemoglobin 27.6 pg (27.0-33.0); Mean Corpuscular Volume 91.4 fL (80.0-98.0); Mean Platelet Volume 8.7 fL (9.4-12.3); Platelet Count 147 X10*3/uL (160-400); Red Blood Count 3.01 X10*6/uL (4.20-5.50); White Blood Count 10.9 X10*3/uL (4.8-10.8)
[2021-04-25 06:46] LABS: Anion Gap 8 (12-20); Blood Urea Nitrogen 18 mg/dL (9-16); C Reactive Protein 9.56 mg/dL (< or = 0.50); Calcium 8.3 mg/dL (8.4-10.2); Carbon Dioxide 30 mmol/L (22-29); Chloride 101 mmol/L (96-108); Creatinine Clr Calc Pharmacy 33.9; Estimated Glomerular Filt Rate 32; Glucose Random 71 mg/dL (60-115); Sodium 134 mmol/L (135-145)
[2021-04-25 08:00] VITALS: BP 125/73; PULSE 77; RESP 18; TEMP 36.4; O2SAT 98
[2021-04-25 08:22] LABS: Erythrocyte Sedimentation Rate 107 MM/HR (0-20)
[2021-04-25] MEDS: methADONE HCl 20 MG/2 ML ORAL.CONC 55 MG PO (09:20)
[2021-04-25] MEDS: guaiFENesin DM 200/20/10 ML 10 ML SYRUP PO ×4 (09:20→21:29)
[2021-04-25] MEDS: 0.9 % Sodium Chloride Flush 3 ML SYRINGE IVFLUSH ×3 (09:21→21:30)
[2021-04-25 12:00] VITALS: BP 129/73; PULSE 83; RESP 18; TEMP 36.3; O2SAT 96
--- NOTE | 2021-04-25 12:16 | HO.PM.IMPN ---
Subjective Subjective Date of Service: 04/25/21 Interval History: Dyspnea improved Rash is becoming itchy Review of Systems Review of Systems: Yes all other systems are reviewed and are negative Physical Exam Vital Signs: Vital Signs: Last Vital Signs Temp 97.5 F 04/25/21 08:00 Pulse 77 04/25/21 08:00 Resp 18 04/25/21 08:00 BP 125/73 04/25/21 08:00 Pulse Ox 98 04/25/21 08:00 BMI result Body Mass Index 24.2 Gen: in no acute distress HEENT: sclera anicteric, moist mucus membranes Neck: supple, RIJ 3LC placed 04/16/21 Lungs: decreased air entry R base Heart: regular rate and rhythm, no murmurs Abd: soft, non-tender, non-distended Ext: no edema Skin: warm/well-perfused, palpable purpuric papules and patches on legs, some on arms as well Neuro: alert and oriented x3, no focal findings Psych: appropriate affect Objective Data Active Medications Acetaminophen (Acetaminophen 325 Mg Tablet) 650 mg PO Q6H PRN PRN Reason: Fever Last Admin: 04/23/21 09:59 Dose: 650 mg Documented by: JENI Benzonatate (Benzonatate 100 Mg Capsule) 100 mg PO TID PRN PRN Reason: Cough Last Admin: 04/17/21 16:09 Dose: 100 mg Documented by: TON Guaifenesin/Dextromethorphan (Guaifenesin Dm 200/20/10 Ml 10 Ml Syrup) 10 ml PO QID [facility] Last Admin: 04/25/21 09:20 Dose: 10 ml Documented by: JOSEFA Hydroxyzine HCl (Hydroxyzine Hcl 25 Mg Tablet) 25 mg PO Q6H PRN PRN Reason: Anxiety Last Admin: 04/19/21 04:55 Dose: 25 mg Documented by: NICOLA Cefazolin Sodium/Dextrose (Ancef) 2 gm in 50 mls @ 100 mls/hr IV Q8H [facility] Last Infusion: 04/25/21 04:33 Dose: 0 mls/hr Documented by: JOSE Melatonin (Melatonin 3 Mg Tablet) 6 mg PO BEDTIME PRN PRN Reason: Insomnia Last Admin: 04/17/21 20:01 Dose: 6 mg Documented by: TON Methadone HCl (Methadone Hcl 20 Mg/2 Ml Oral.Conc) 55 mg PO DAILY [facility] Last Admin: 04/25/21 09:20 Dose: 55 mg Documented by: JOSEFA Nicotine Polacrilex (Nicotine Polacrilex 2 Mg Gum) 2 mg BUCCAL Q2H PRN PRN Reason: Nicotine Cravings Last Admin: 04/04/21 05:47 Dose: 2 mg Documented by: MEERARISKelly Oxycodone HCl (Oxycodone Hcl Immed Release 5 Mg Tablet) 5 mg PO Q4H PRN PRN Reason: Pain, Moderate (Pain Scale 4-6 Last Admin: 04/23/21 10:20 Dose: 5 mg Documented by: JENI Pharmacy Consult (Consult Rx Perform Med Rec) 1 each MISCELLANE ONCE PRN PRN Reason: Consult order Senna (Sennosides 8.6 Mg Tablet) 17.2 mg PO BEDTIME PRN PRN Reason: Constipation Sodium Chloride (0.9 % Sodium Chloride Flush 3 Ml Syringe) 3 ml IVFLUSH QSHIFT [facility] Last Admin: 04/25/21 09:21 Dose: 3 ml Documented by: JOSEFA Labs CBC & Chem 7: 04/25/21 05:52 04/25/21 05:52 Labs: Laboratory Results - last 24 hr 04/25/21 04/25/21 04/25/21 05:52 05:52 05:52 MCV 91.4 MCH 27.6 MCHC 30.2 L RDW 16.0 Plt Count 147 L MPV 8.7 L Absolute Nucleated RBC 0.000 Nucleated RBC % (auto) 0.0 ESR 107 H Anion Gap 8 L Estim Creat Clear Calc 33.9 Estimated GFR 32 Random Glucose 71 Calcium 8.3 L C-Reactive Protein 9.56 H Assessment and Plan (1) Infective endocarditis: Status: Acute (2) Cocaine use disorder, severe, dependence: Status: Acute (3) Opioid use disorder, severe, dependence: Status: Acute (4) MELITON (acute kidney injury): Status: Acute Assessment and Plan: hospital d#25 25yo F with history of IV heroin + cocaine abuse, recent RUE cellulitis with open wound p/w SOB and admitted for severe sepsis found to be bacteremic with TV endocarditis complicated by cavitary septic emboli + bilateral loculated pleural effusions # MSSA + Streptococcus dysgalactiae bacteremia/infective endocarditis with 2.77 x 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 RIJ CVC placed 04/16/21 but will need PICC line to complete treatment - L chest tube placed 04/08/21 and underwent chemical decortication with tPA x3d, removed 04/15/21 - R chest tube placed 04/16/21 with small lateral PTX likely trapped lung, removed 04/21/21 # vasculitis rash - due to IE? drug effect? discussed with ID- will change to daptomycin # MELITON - send urine studies including eosinophils, check renal US, and consult Nephrology. give IV normal saline. ?post infectious GN # anemia of chronic disease - total 9 units pRBCs transfused since 04/03/21 and Hb now stable # acute hypoxic resp failure - wean O2 as tolerated # opioid use disorder - continue methadone 55 mg/d # cocaine abuse - CARE Team consult # VTE ppx - SCDs # dispo - PICC line then STR- earliest would be Mon Quality Stroke Does the patient have a stroke diagnosis?: No VTE Prior VTE?: No VTE Risk Level:: Medical - moderate - high VTE Device Contraindication: Treatment Not Indicated VTE Drug Contraindication: N/A - Med Ordered
[2021-04-25 15:37] LABS: Appearance Urine HAZY; Color Urine RED; Glucose Urine UA NEG (NEG); Leukocyte Esterase Urine 3+ (NEG); Nitrite Urine NEG (NEG); Urine Blood 3+ (NEG); Urine Ketones NEG (NEG); Urine Protein 2+ MG/DL (NEG-TRACE)
[2021-04-25 15:48] LABS: Creatinine Urine 55.31 mg/dL
[2021-04-25 15:49] VITALS: BP 155/84; PULSE 86; RESP 16; TEMP 36.6; O2SAT 98
[2021-04-25 15:51] LABS: RBC Urine 30-49 /HPF (0); Squamous Epithelial Cell Urine 1+ /LPF
[2021-04-25 15:52] LABS: Amorphous Sediment Urine TRACE /LPF
--- NOTE | 2021-04-25 16:52 | P.PNNP_ITS ---
Subjective Subjective Date of Service: 04/25/21 Interval history: Dyspnea improved Rash is becoming itchy Physical Exam Vital Signs: Vital Signs: Last Vital Signs Temp 97.8 F 04/25/21 15:49 Pulse 86 04/25/21 15:49 Resp 16 04/25/21 15:49 BP 155/84 H 04/25/21 15:49 Pulse Ox 98 04/25/21 15:49 BMI result Body Mass Index 24.2 Const: Other: Disheveled General: alert Orientation/consciousness: patient oriented x3 Limitations: no limitations HENMT: Other: tacky mucous membranes Head: Yes normal to inspection Ears: hearing grossly normal bilaterally General nose exam: Normal external nose present Face and sinus: Yes normal facial exam Mouth: Normal oral and p alatal mucosa present Throat: Yes posterior oropharynx normal Eyes: General: appearance normal, both eyes and all related structures Pupils: Equal, round and reactive pupils present Neck: Neck: Yes normal visual inspection Chest: Chest palpation & inspection: normal inspection of the chest Resp: Other: coarse breath sounds throughout tachypnea with a rate of 30 Cardio: Rate: regular rate Rhythm: regular rhythm Peripheral pulses: Peripheral pulses 2+ throughout GI: Inspection: Yes normal to inspection Palpation (GI): Soft to palpation and nontender Auscultation: normal bowel sounds Back/Spine/Pelvis: Thoracic/Lumbar Spine: thoracic and lumbar spine normal to inspection Skin: General skin exam: no rashes or lesions noted and petechiae Neuro: Other: diffusely weak General: patient oriented x3, moves all extremities, normal sensation to monofilament and Unable to assess gait Cranial nerves: Yes Equal, round and reactive pupils present Cognition (Neuro): normal cognition Speech: No Abnormal speech present Gait exam (Neuro): Unable to assess gait Motor exam (neuro): 5/5 motor strength present throughout Extrem: Other: General: Yes normal to inspection, Yes no pedal edema and Yes no calf tenderness Objective Data Labs CBC & Chem 7: 04/25/21 05:52 04/25/21 05:52 Labs: Laboratory Results - last 24 hr 04/25/21 04/25/21 04/25/21 05:52 05:52 05:52 WBC 10.9 H RBC 3.01 L Hgb 8.3 L Hct 27.5 L MCV 91.4 MCH 27.6 MCHC 30.2 L RDW 16.0 Plt Count 147 L MPV 8.7 L Absolute Nucleated RBC 0.000 Nucleated RBC % (auto) 0.0 ESR 107 H Sodium 134 L Potassium 5.0 Chloride 101 Carbon Dioxide 30 H Anion Gap 8 L BUN 18 H Creatinine 1.94 H Estim Creat Clear Calc 33.9 Estimated GFR 32 Random Glucose 71 Calcium 8.3 L C-Reactive Protein 9.56 H Urine Color Urine Appearance Urine pH Ur Specific [place] Urine Protein Urine Glucose (UA) Urine Ketones Urine Blood Urine Nitrite Ur Leukocyte Esterase Urine RBC Urine WBC Ur Squamous Epith Cells Amorphous Sediment Urine Bacteria Ur Random Sodium Urine Creatinine 04/25/21 04/25/21 15:15 15:15 WBC RBC Hgb Hct MCV MCH MCHC RDW Plt Count MPV Absolute Nucleated RBC Nucleated RBC % (auto) ESR Sodium Potassium Chloride Carbon Dioxide Anion Gap BUN Creatinine Estim Creat Clear Calc Estimated GFR Random Glucose Calcium C-Reactive Protein Urine Color RED Urine Appearance HAZY Urine pH 6.0 Ur Specific [place] 1.010 Urine Protein 2+ H Urine Glucose (UA) NEG Urine Ketones NEG Urine Blood 3+ H Urine Nitrite NEG Ur Leukocyte Esterase 3+ H Urine RBC 30-49 H Urine WBC 15-29 H Ur Squamous Epith Cells 1+ Amorphous Sediment TRACE Urine Bacteria NONE Ur Random Sodium 57.0 Urine Creatinine 55.31 Microbiology Microbiology Results: Microbiology 04/16/21 16:53 Pleural Fluid Gram Stain - Final 04/16/21 16:53 Pleural Fluid Routine Culture - Final No growth after 2 days 04/16/21 16:53 Pleural Fluid Anaerobic Culture - Final NO GROWTH AFTER 5 DAYS 04/08/21 16:00 Pleural Fluid Gram Stain - Final 04/08/21 16:00 Pleural Fluid Routine Culture - Final No growth after 2 days 04/08/21 16:00 Pleural Fluid Anaerobic Culture - Final NO GROWTH AFTER 5 DAYS 04/07/21 08:23 Blood - Venous Blood Culture - Final No growth after 5 days. 04/07/21 08:12 Blood - Venous Blood Culture - Final No growth after 5 days. 03/31/21 21:53 Blood - Venous Blood Culture - Final Staphylococcus aureus Strep dysgalactiae ssp equisim 03/31/21 21:53 Blood - Venous Blood Culture - Final Staphylococcus aureus Strep dysgalactiae ssp equisim 04/01/21 Unknown Urine clean catch - Urine fox top Urine Culture - Final Procedures Date of Service Date of Service: 04/25/21 Assessment & Plan Assessment and plan (1) Infective endocarditis: Status: Acute (2) Bacteremia: Status: Acute (3) MELTION (acute kidney injury): Status: Acute Assessment and Plan: 25yo F with history of IV heroin + cocaine abuse, recent RUE cellulitis with open wound,p/w SOB and admitted for severe sepsis found to be bacteremic with TV endocarditis complicated by cavitary septic emboli + bilateral loculated pleural effusions; doing well MELITON - possible Post infectious GN With Hep C and low compliments DDX includes MPGN vs others Would need kidney biopsy ORDERED CRYOGLOBINS Discussed and she is refusing ?? Time Spent With Patient Time: Total time spent is greater than 50% in coordination of care (as documented) at patient's floor/unit and/or counseling patient: Time with patient: 15 - 24 minutes Progress Note: Quality Stroke Does the patient have a stroke diagnosis?: No
[2021-04-25 19:53] VITALS: BP 125/63; PULSE 82; RESP 16; TEMP 37.1; O2SAT 96
--- NOTE | 2021-04-25 21:11 | PM.EVENT ---
Event Note Date of Service: 04/25/21 Event Note: rash now itchy so probably allergic reaction to Kefzol rather than endocarditis rash so switch to Daptomycin to complete course of therapy
[2021-04-26] VITALS: BP 119/69; PULSE 82; RESP 16; TEMP 37.1; O2SAT 96
[2021-04-26 03:47] VITALS: BP 118/69; PULSE 81; RESP 19; TEMP 37.1; O2SAT 96
[2021-04-26 07:11] LABS: Anion Gap 11 (12-20); Blood Urea Nitrogen 18 mg/dL (9-16); Calcium 8.7 mg/dL (8.4-10.2); Carbon Dioxide 28 mmol/L (22-29); Chloride 101 mmol/L (96-108); Creatinine Clr Calc Pharmacy 30.8; Estimated Glomerular Filt Rate 29; Glucose Random 78 mg/dL (60-115); Potassium 5.1 mmol/L (3.3-5.1); Sodium 135 mmol/L (135-145)
[2021-04-26 07:19] VITALS: BP 147/72; PULSE 88; RESP 16; TEMP 36.1; O2SAT 94
[2021-04-26] MEDS: methADONE HCl 20 MG/2 ML ORAL.CONC 55 MG PO (08:47)
[2021-04-26] MEDS: 0.9 % Sodium Chloride Flush 3 ML SYRINGE IVFLUSH ×3 (08:47→20:39)
[2021-04-26] MEDS: guaiFENesin DM 200/20/10 ML 10 ML SYRUP PO ×4 (08:47→20:38)
[2021-04-26 09:12] LABS: EOS Counted 2 CELLS; EOS QC POS YES; EOS Stain Quality OK YES; WBC, Counted 100 CELLS
--- NOTE | 2021-04-26 11:57 | P.PNNP_ITS ---
Subjective Subjective Date of Service: 04/28/21 Interval history: Events ntoed ID note appreciated Rash is itchy Physical Exam Vital Signs: Vital Signs: Last Vital Signs Temp 97 F 04/26/21 07:19 Pulse 88 04/26/21 07:19 Resp 16 04/26/21 07:19 BP 147/72 H 04/26/21 07:19 Pulse Ox 94 04/26/21 07:19 BMI result Body Mass Index 24.2 Const: Other: Disheveled General: alert Orientation/consciousness: patient oriented x3 Limitations: no limitations HENMT: Other: tacky mucous membranes Head: Yes normal to inspection Ears: hearing grossly normal bilaterally General nose exam: Normal external nose present Face and sinus: Yes normal facial exam Mouth: Normal oral and palatal mucosa present Throat: Yes posterior oropharynx normal Eyes: General: appearance normal, both eyes and all related structures Pupils: Equal, round and reactive pupils present Neck: Neck: Yes normal visual inspection Chest: Chest palpation & inspection: normal inspection of the chest Resp: Other: coarse breath sounds throughout tachypnea with a rate of 30 Cardio: Rate: regular rate Rhythm: regular rhythm Peripheral pulses: Peripheral pulses 2+ throughout GI: Inspection: Yes normal to inspection Palpation (GI): Soft to palpation and nontender Auscultation: normal bowel sounds Back/Spine/Pelvis: Thoracic/Lumbar Spine: thoracic and lumbar spine normal to inspection Skin: General skin exam: no rashes or lesions noted and petechiae Neuro: Other: diffusely weak General: patient oriented x3, moves all extremities, normal sensation to monofilament and Unable to assess gait Cranial nerves: Yes Equal, round and reactive pupils present Cognition (Neuro): normal cognition Speech: No Abnormal speech present Gait exam (Neuro): Unable to assess gait Motor exam (neuro): 5/5 motor strength present throughout Extrem: Other: General: Yes normal to inspection, Yes no pedal edema and Yes no calf tenderness Objective Data Labs CBC & Chem 7: 04/28/21 05:30 04/28/21 05:30 Labs: Laboratory Results - last 24 hr 04/25/21 04/25/21 04/26/21 15:15 15:15 06:46 Sodium 135 Potassium 5.1 Chloride 101 Carbon Dioxide 28 Anion Gap 11 L BUN 18 H Creatinine 2.14 H Estim Creat Clear Calc 30.8 Estimated GFR 29 Random Glucose 78 Calcium 8.7 Urine Color RED Urine Appearance HAZY Urine pH 6.0 Ur Specific [place] 1.010 Urine Protein 2+ H Urine Glucose (UA) NEG Urine Ketones NEG Urine Blood 3+ H Urine Nitrite NEG Ur Leukocyte Esterase 3+ H Urine RBC 30-49 H Urine WBC 15-29 H Ur Squamous Epith Cells 1+ Amorphous Sediment TRACE Urine Bacteria NONE Urine Eosinophils % 2.0 Ur Random Sodium 57.0 Urine Creatinine 55.31 Microbiology Microbiology Results: Microbiology 04/16/21 16:53 Pleural Fluid Gram Stain - Final 04/16/21 16:53 Pleural Fluid Routine Culture - Final No growth after 2 days 04/16/21 16:53 Pleural Fluid Anaerobic Culture - Final NO GROWTH AFTER 5 DAYS 04/08/21 16:00 Pleural Fluid Gram Stain - Final 04/08/21 16:00 Pleural Fluid Routine Culture - Final No growth after 2 days 04/08/21 16:00 Pleural Fluid Anaerobic Culture - Final NO GROWTH AFTER 5 DAYS 04/07/21 08:23 Blood - Venous Blood Culture - Final No growth after 5 days. 04/07/21 08:12 Blood - Venous Blood Culture - Final No growth after 5 days. 03/31/21 21:53 Blood - Venous Blood Culture - Final Staphylococcus aureus Strep dysgalactiae ssp equisim 03/31/21 21:53 Blood - Venous Blood Culture - Final Staphylococcus aureus Strep dysgalactiae ssp equisim 04/01/21 Unknown Urine clean catch - Urine fox top Urine Culture - Final Procedures Date of Service Date of Service: 04/26/21 Assessment & Plan Assessment and plan (1) Infective endocarditis: Status: Acute (2) Bacteremia: Status: Acute (3) MELITON (acute kidney injury): Status: Acute Assessment and Plan: 25yo F with history of IV heroin + cocaine abuse, recent RUE cellulitis with open wound,p/w SOB and admitted for severe sepsis found to be bacteremic with TV endocarditis complicated by cavitary septic emboli + bilateral loculated pleural effusions; doing well MELITON - possible Post infectious GN/ AIN With Hep C and low compliments DDX includes MPGN vs others Would need kidney biopsy follow cyroglobins Discussed biopsy again and she is refusing ?? Time Spent With Patient Time: Total time spent is greater than 50% in coordination of care (as documented) at patient's floor/unit and/or counseling patient: Time with patient: 15 - 24 minutes Progress Note: Quality Stroke Does the patient have a stroke diagnosis?: No
[2021-04-26 12:00] VITALS: BP 148/79; PULSE 85; RESP 20; TEMP 36.2; O2SAT 98
--- NOTE | 2021-04-26 12:16 | P.PNIM_ITS ---
Subjective Subjective Date of Service: 04/26/21 Interval History: Breathing improved Rash less itchy but still quite prominent Review of Systems Review of Systems: Yes all other systems are reviewed and are negative Physical Exam Vital Signs: Vital Signs: Last Vital Signs Temp 97 F 04/26/21 07:19 Pulse 88 04/26/21 07:19 Resp 16 04/26/21 07:19 BP 147/72 H 04/26/21 07:19 Pulse Ox 94 04/26/21 07:19 BMI result Body Mass Index 24.2 Gen: in no acute distress HEENT: sclera anicteric, moist mucus membranes Neck: supple, RIJ 3LC placed 04/16/21 Lungs: decreased air entry R base Heart: regular rate and rhythm, no murmurs Abd: soft, non-tender, non-distended Ext: no edema Skin: warm/well-perfused, palpable purpuric papules and patches on legs, some on arms as well Neuro: alert and oriented x3, no focal findings Psych: appropriate affect Objective Data Active Medications Acetaminophen (Acetaminophen 325 Mg Tablet) 650 mg PO Q6H PRN PRN Reason: Fever Last Admin: 04/23/21 09:59 Dose: 650 mg Documented by: JENI Benzonatate (Benzonatate 100 Mg Capsule) 100 mg PO TID PRN PRN Reason: Cough Last Admin: 04/17/21 16:09 Dose: 100 mg Documented by: TON Guaifenesin/Dextromethorphan (Guaifenesin Dm 200/20/10 Ml 10 Ml Syrup) 10 ml PO QID [facility] Last Admin: 04/26/21 08:47 Dose: 10 ml Documented by: JOSEFA Hydroxyzine HCl (Hydroxyzine Hcl 25 Mg Tablet) 25 mg PO Q6H PRN PRN Reason: Anxiety Last Admin: 04/19/21 04:55 Dose: 25 mg Documented by: NICOLA Daptomycin 440 mg/ Sodium (Chloride) 58.8 mls @ 100 mls/hr IV Q24H [facility] Last Infusion: 04/25/21 15:02 Dose: 0 mls/hr Documented by: KATI Melatonin (Melatonin 3 Mg Tablet) 6 mg PO BEDTIME PRN PRN Reason: Insomnia Last Admin: 04/17/21 20:01 Dose: 6 mg Documented by: TON Methadone HCl (Methadone Hcl 20 Mg/2 Ml Oral.Conc) 55 mg PO DAILY [facility] Last Admin: 04/26/21 08:47 Dose: 55 mg Documented by: JOSEFA Nicotine Polacrilex (Nicotine Polacrilex 2 Mg Gum) 2 mg BUCCAL Q2H PRN PRN Reason: Nicotine Cravings Last Admin: 04/04/21 05:47 Dose: 2 mg Documented by: CARMEN Oxycodone HCl (Oxycodone Hcl Immed Release 5 Mg Tablet) 5 mg PO Q4H PRN PRN Reason: Pain, Moderate (Pain Scale 4-6 Last Admin: 04/23/21 10:20 Dose: 5 mg Documented by: JENI Pharmacy Consult (Consult Rx Perform Med Rec) 1 each MISCELLANE ONCE PRN PRN Reason: Consult order Senna (Sennosides 8.6 Mg Tablet) 17.2 mg PO BEDTIME PRN PRN Reason: Constipation Sodium Chloride (0.9 % Sodium Chloride Flush 3 Ml Syringe) 3 ml IVFLUSH QSHIFT [facility] Last Admin: 04/26/21 08:47 Dose: 3 ml Documented by: JOSEFA Labs CBC & Chem 7: 04/25/21 05:52 04/26/21 06:46 Labs: Laboratory Results - last 24 hr 04/25/21 04/25/21 04/26/21 15:15 15:15 06:46 Anion Gap 11 L Estim Creat Clear Calc 30.8 Estimated GFR 29 Random Glucose 78 Calcium 8.7 Urine Color RED Urine Appearance HAZY Urine pH 6.0 Ur Specific [place] 1.010 Urine Protein 2+ H Urine Glucose (UA) NEG Urine Ketones NEG Urine Blood 3+ H Urine Nitrite NEG Ur Leukocyte Esterase 3+ H Urine RBC 30-49 H Urine WBC 15-29 H Ur Squamous Epith Cells 1+ Amorphous Sediment TRACE Urine Bacteria NONE Urine Eosinophils % 2.0 Ur Random Sodium 57.0 Urine Creatinine 55.31 Assessment and Plan (1) Infective endocarditis: Status: Acute (2) Cocaine use disorder, severe, dependence: Status: Acute (3) Opioid use disorder, severe, dependence: Status: Acute (4) MELITON (acute kidney injury): Status: Acute Assessment and Plan: hospital d#26 25yo F with history of IV heroin + cocaine abuse, recent RUE cellulitis with open wound p/w SOB and admitted for severe sepsis found to be bacteremic with TV endocarditis complicated by cavitary septic emboli + bilateral loculated pleural effusions # MSSA + Streptococcus dysgalactiae bacteremia/infective endocarditis with 2.77 x 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 # multi focal pneumonia with cavitary septic emboli # loculated bilateral pleural effusions - s/p 7d of vancomycin, then on cefazolin, then switched to daptomycin 04/25/21 due to rash - on d# of IV ABX after clearance of blood cultures 04/07 - RIJ CVC placed 04/16/21 but will need PICC line to complete treatment; ordered for 04/27/21 - L chest tube placed 04/08/21 and underwent chemical decortication with tPA x3d, removed 04/15/21 - R chest tube placed 04/16/21 with small lateral PTX likely trapped lung, removed 04/21/21 # vasculitis rash - due to IE vs. cefazolin? changed to daptomycin 04/25/21 # MELITON - Nephrology following- post-infectious GN vs. AIN? - urine eosinophils + cryoglobulins pending - pt refuses renal biopsy # HCV antibody positive - cleared infection, HCV viral load negative # anemia of chronic disease - total 9 units pRBCs transfused since 04/03/21 and Hb now stable # acute hypoxic resp failure - wean O2 as tolerated # opioid use disorder # cocaine abuse - continue methadone 55 mg/d - CARE Team consulted - HBV immune, HIV negative # VTE ppx - SCDs # dispo - PICC line then STR- earliest would be Mon Quality Stroke Does the patient have a stroke diagnosis?: No VTE Prior VTE?: No VTE Risk Level:: Medical - moderate - high VTE Device Contraindication: Treatment Not Indicated VTE Drug Contraindication: N/A - Med Ordered
[2021-04-26 16:00] VITALS: BP 139/86; PULSE 74; RESP 18; TEMP 36.7; O2SAT 97
[2021-04-26 19:50] VITALS: BP 126/75; PULSE 92; RESP 18; TEMP 37.2; O2SAT 96
[2021-04-27] VITALS: BP 122/63; PULSE 83; RESP 18; TEMP 36.6; O2SAT 97
[2021-04-27 04:00] VITALS: BP 121/67; PULSE 73; RESP 18; TEMP 36.3; O2SAT 97
[2021-04-27 06:14] LABS: Anion Gap 10 (12-20); Blood Urea Nitrogen 19 mg/dL (9-16); Calcium 8.7 mg/dL (8.4-10.2); Carbon Dioxide 27 mmol/L (22-29); Chloride 102 mmol/L (96-108); Creatinine Clr Calc Pharmacy 28.2; Estimated Glomerular Filt Rate 26; Glucose Random 66 mg/dL (60-115); Potassium 5.1 mmol/L (3.3-5.1); Sodium 134 mmol/L (135-145)
[2021-04-27 08:00] VITALS: BP 149/76; PULSE 82; RESP 20; TEMP 36.2; O2SAT 99
[2021-04-27] MEDS: guaiFENesin DM 200/20/10 ML 10 ML SYRUP PO ×4 (09:33→20:53)
[2021-04-27] MEDS: methADONE HCl 20 MG/2 ML ORAL.CONC 55 MG PO (09:34)
--- NOTE | 2021-04-27 10:27 | PC.NURSE ---
offered to change TLC dsg to R jugular but patient strongly refused at this time. Patient is alert and oriented and was educated on risk for infection.
[2021-04-27 11:35] VITALS: BP 128/78; PULSE 79; RESP 20; TEMP 35.8; O2SAT 100
--- NOTE | 2021-04-27 11:39 | PM.PNNEP ---
Subjective Subjective Date of Service: 04/28/21 Interval history: Events noted Physical Exam Vital Signs: Vital Signs: Last Vital Signs Temp 96.5 F L 04/27/21 11:35 Pulse 79 04/27/21 11:35 Resp 20 04/27/21 11:35 BP 128/78 04/27/21 11:35 Pulse Ox 100 04/27/21 11:35 BMI result Body Mass Index 24.2 Const: Other: Disheveled General: alert Orientation/consciousness: patient oriented x3 Limitations: no limitations HENMT: Other: tacky mucous membranes Head: Yes normal to inspection Ears: hearing grossly normal bilaterally General nose exam: Normal external nose present Face and sinus: Yes normal facial exam Mouth: Normal oral and palatal mucosa present Throat: Yes posterior oropharynx normal Eyes: General: appearance normal, both eyes and all related structures Pupils: Equal, round and reactive pupils present Neck: Neck: Yes normal visual inspection Chest: Chest palpation & inspection: normal inspection of the chest Resp: Other: coarse breath sounds throughout tachypnea with a rate of 30 Cardio: Rate: regular rate Rhythm: regular rhythm Peripheral pulses: Peripheral pulses 2+ throughout GI: Inspection: Yes normal to inspection Palpation (GI): Soft to palpation and nontender Auscultation: normal bowel sounds Back/Spine/Pelvis: Thoracic/Lumbar Spine: thoracic and lumbar spine normal to inspection Skin: General skin exam: no rashes or lesions noted and petechiae Neuro: Other: diffusely weak General: patient oriented x3, moves all extremities, normal sensation to monofilament and Unable to assess gait Cranial nerves: Yes Equal, round and reactive pupils present Cognition (Neuro): normal cognition Speech: No Abnormal speech present Gait exam (Neuro): Unable to assess gait Motor exam (neuro): 5/5 motor strength present throughout Extrem: Other: General: Yes normal to inspection, Yes no pedal edema and Yes no calf tenderness Objective Data Labs CBC & Chem 7: 04/28/21 05:30 04/28/21 05:30 Labs: Laboratory Results - last 24 hr 04/27/21 05:17 Sodium 134 L Potassium 5.1 Chloride 102 Carbon Dioxide 27 Anion Gap 10 L BUN 19 H Creatinine 2.33 H Estim Creat Clear Calc 28.2 Estimated GFR 26 Random Glucose 66 Calcium 8.7 Microbiology Microbiology Results: Microbiology 04/16/21 16:53 Pleural Fluid Gram Stain - Final 04/16/21 16:53 Pleural Fluid Routine Culture - Final No growth after 2 days 04/16/21 16:53 Pleural Fluid Anaerobic Culture - Final NO GROWTH AFTER 5 DAYS 04/08/21 16:00 Pleural Fluid Gram Stain - Final 04/08/21 16:00 Pleural Fluid Routine Culture - Final No growth after 2 days 04/08/21 16:00 Pleural Fluid Anaerobic Culture - Final NO GROWTH AFTER 5 DAYS 04/07/21 08:23 Blood - Venous Blood Culture - Final No growth after 5 days. 04/07/21 08:12 Blood - Venous Blood Culture - Final No growth after 5 days. 03/31/21 21:53 Blood - Venous Blood Culture - Final Staphylococcus aureus Strep dysgalactiae ssp equisim 03/31/21 21:53 Blood - Venous Blood Culture - Final Staphylococcus aureus Strep dysgalactiae ssp equisim 04/01/21 Unknown Urine clean catch - Urine fox top Urine Culture - Final Procedures Date of Service Date of Service: 04/27/21 Assessment & Plan Assessment and plan (1) Infective endocarditis: Status: Acute (2) Bacteremia: Status: Acute (3) MELITON (acute kidney injury): Status: Acute Assessment and Plan: 25yo F with history of IV heroin + cocaine abuse, recent RUE cellulitis with open wound,p/w SOB and admitted for severe sepsis found to be bacteremic with TV endocarditis complicated by cavitary septic emboli + bilateral loculated pleural effusions; doing well MELITON - possible Post infectious GN/ AIN With Hep C and low compliments DDX includes MPGN vs others Would need kidney biopsy follow cryoglobins Discussed biopsy again and she is refusing Refused PICC line as well. Will empirically treat with Prednisone for presumed AIN ?? Time Spent With Patient Time: Total time spent is greater than 50% in coordination of care (as documented) at patient's floor/unit and/or counseling patient: Time with patient: 15 - 24 minutes Progress Note: Quality Stroke Does the patient have a stroke diagnosis?: No
--- NOTE | 2021-04-27 11:46 | HO.PM.IMPN ---
Subjective Subjective Date of Service: 04/27/21 Interval History: Rash less itchy No fever No shortness of breath Refuses kidney biopsy Review of Systems Review of Systems: Yes all other systems are reviewed and are negative Physical Exam Vital Signs: Vital Signs: Last Vital Signs Temp 96.5 F L 04/27/21 11:35 Pulse 79 04/27/21 11:35 Resp 20 04/27/21 11:35 BP 128/78 04/27/21 11:35 Pulse Ox 100 04/27/21 11:35 BMI result Body Mass Index 24.2 Gen: in no acute distress HEENT: sclera anicteric, moist mucus membranes Neck: supple, RIJ 3LC placed 04/16/21 Lungs: decreased air entry R base Heart: regular rate and rhythm, no murmurs Abd: soft, non-tender, non-distended Ext: no edema Skin: warm/well-perfused, palpable purpuric papules and patches on legs, some on arms as well Neuro: alert and oriented x3, no focal findings Psych: appropriate affect Objective Data Active Medications Acetaminophen (Acetaminophen 325 Mg Tablet) 650 mg PO Q6H PRN PRN Reason: Fever Last Admin: 04/23/21 09:59 Dose: 650 mg Documented by: JENI Benzonatate (Benzonatate 100 Mg Capsule) 100 mg PO TID PRN PRN Reason: Cough Last Admin: 04/17/21 16:09 Dose: 100 mg Documented by: TON Guaifenesin/Dextromethorphan (Guaifenesin Dm 200/20/10 Ml 10 Ml Syrup) 10 ml PO QID [facility] Last Admin: 04/27/21 09:33 Dose: 10 ml Documented by: JAY Hydroxyzine HCl (Hydroxyzine Hcl 25 Mg Tablet) 25 mg PO Q6H PRN PRN Reason: Anxiety Last Admin: 04/19/21 04:55 Dose: 25 mg Documented by: NICOLA Daptomycin 440 mg/ Sodium (Chloride) 58.8 mls @ 100 mls/hr IV Q24H [facility] Last Infusion: 04/26/21 13:49 Dose: 0 mls/hr Documented by: JOSEFA Melatonin (Melatonin 3 Mg Tablet) 6 mg PO BEDTIME PRN PRN Reason: Insomnia Last Admin: 04/17/21 20:01 Dose: 6 mg Documented by: TON Methadone HCl (Methadone Hcl 20 Mg/2 Ml Oral.Conc) 55 mg PO DAILY [facility] Last Admin: 04/27/21 09:34 Dose: 55 mg Documented by: JAY Nicotine Polacrilex (Nicotine Polacrilex 2 Mg Gum) 2 mg BUCCAL Q2H PRN PRN Reason: Nicotine Cravings Last Admin: 04/04/21 05:47 Dose: 2 mg Documented by: MEERARISKelly Oxycodone HCl (Oxycodone Hcl Immed Release 5 Mg Tablet) 5 mg PO Q4H PRN PRN Reason: Pain, Moderate (Pain Scale 4-6 Last Admin: 04/23/21 10:20 Dose: 5 mg Documented by: JENI Pharmacy Consult (Consult Rx Perform Med Rec) 1 each MISCELLANE ONCE PRN PRN Reason: Consult order Prednisone (Prednisone 20 Mg Tablet) 40 mg PO DAILY [facility] Senna (Sennosides 8.6 Mg Tablet) 17.2 mg PO BEDTIME PRN PRN Reason: Constipation Sodium Chloride (0.9 % Sodium Chloride Flush 3 Ml Syringe) 3 ml IVFLUSH QSHIFT [facility] Last Admin: 04/27/21 09:33 Dose: Not Given Documented by: JAY Non-Admin Reason: TLC Labs CBC & Chem 7: 04/25/21 05:52 04/27/21 05:17 Labs: Laboratory Results - last 24 hr 04/27/21 05:17 Anion Gap 10 L Estim Creat Clear Calc 28.2 Estimated GFR 26 Random Glucose 66 Calcium 8.7 Assessment and Plan (1) Infective endocarditis: Status: Acute (2) Cocaine use disorder, severe, dependence: Status: Acute (3) Opioid use disorder, severe, dependence: Status: Acute (4) MELITON (acute kidney injury): Status: Acute Assessment and Plan: hospital d#27 25yo F with history of IV heroin + cocaine abuse, recent RUE cellulitis with open wound p/w SOB and admitted for severe sepsis found to be bacteremic with TV endocarditis complicated by cavitary septic emboli + bilateral loculated pleural effusions developed likely vasculitic drug rash + AIN due to cefazolin # MSSA + Streptococcus dysgalactiae bacteremia/infective endocarditis with 2.77 x 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 # multi focal pneumonia with cavitary septic emboli # loculated bilateral pleural effusions - s/p 7d of vancomycin, then on cefazolin, then switched to daptomycin 04/25/21 due to rash - on d# of IV ABX after clearance of blood cultures 04/07 - RIJ CVC placed 04/16/21 but will need PICC line to complete treatment; ordered for today - L chest tube placed 04/08/21 and underwent chemical decortication with tPA x3d, removed 04/15/21 - R chest tube placed 04/16/21 with small lateral PTX likely trapped lung, removed 04/21/21 # vasculitis rash - likely drug-induced due to cefazolin. 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; discussed with Nephrology and will start prednisone 40 mg/d today - cryoglobulins pending - refuses renal biopsy # HCV antibody positive - cleared infection, HCV viral load negative # anemia of chronic disease - total 9 units pRBCs transfused since 04/03/21 and Hb now stable # acute hypoxic resp failure - wean O2 as tolerated # opioid use disorder # cocaine abuse - continue methadone 55 mg/d - CARE Team consulted - HBV immune, HIV negative, HCV antibody-positive and viral load-negative # VTE ppx - SCDs # dispo - PICC line then STR, pending improvement in renal function Quality Stroke Does the patient have a stroke diagnosis?: No VTE Prior VTE?: No VTE Risk Level:: Medical - moderate - high VTE Device Contraindication: Treatment Not Indicated VTE Drug Contraindication: N/A - Med Ordered
[2021-04-27] MEDS: predniSONE 20 MG TABLET 40 MG PO (12:52)
[2021-04-27 15:35] VITALS: BP 145/79; PULSE 71; RESP 20; TEMP 36.1; O2SAT 97
[2021-04-27] MEDS: 0.9 % Sodium Chloride Flush 3 ML SYRINGE IVFLUSH (18:17)
[2021-04-27] MEDS: oxyCODONE HCl Immed Release 5 MG TABLET PO (18:21)
[2021-04-27 19:19] VITALS: PULSE 55; RESP 20; TEMP 35.9; O2SAT 98
--- NOTE | 2021-04-27 22:47 | P.PNID_ITS ---
Subjective Subjective Date of Service: 04/27/21 Critical Care Time (minutes): 15 Comment: she feels legs less itchy Objective Data Labs CBC & Chem 7: 04/28/21 05:30 05/03/21 05:30 Labs: Laboratory Results - last 24 hr 04/27/21 05:17 Sodium 134 L Potassium 5.1 Chloride 102 Carbon Dioxide 27 Anion Gap 10 L BUN 19 H Creatinine 2.33 H Estim Creat Clear Calc 28.2 Estimated GFR 26 Random Glucose 66 Calcium 8.7 Microbiology Microbiology Results: Microbiology 04/16/21 16:53 Pleural Fluid Gram Stain - Final 04/16/21 16:53 Pleural Fluid Routine Culture - Final No growth after 2 days 04/16/21 16:53 Pleural Fluid Anaerobic Culture - Final NO GROWTH AFTER 5 DAYS 04/08/21 16:00 Pleural Fluid Gram Stain - Final 04/08/21 16:00 Pleural Fluid Routine Culture - Final No growth after 2 days 04/08/21 16:00 Pleural Fluid Anaerobic Culture - Final NO GROWTH AFTER 5 DAYS 04/07/21 08:23 Blood - Venous Blood Culture - Final No growth after 5 days. 04/07/21 08:12 Blood - Venous Blood Culture - Final No growth after 5 days. 03/31/21 21:53 Blood - Venous Blood Culture - Final Staphylococcus aureus Strep dysgalactiae ssp equisim 03/31/21 21:53 Blood - Venous Blood Culture - Final Staphylococcus aureus Strep dysgalactiae ssp equisim 04/01/21 Unknown Urine clean catch - Urine fox top Urine Culture - Final Physical Exam Verdana 4l Vital Signs: Verdana 4d Verdana 4d Vital Signs: Verdana 4d Verdana 4Bd Last Vital Signs Verdana 4d Tin Pot Operator New 4d Tin Pot Operator New 4d Temp 96.6 F L 04/27/21 19:19 Tin Pot Operator New 4d Pulse 55 04/27/21 19:19 Tin Pot Operator New 4d Resp 20 04/27/21 19:19 BP 145/79 H 04/27/21 15:35 Pulse Ox 98 04/27/21 19:19 BMI result Body Mass Index 24.2 Const: General: cooperative Eyes: Pupils: Equal, round and reactive pupils present Resp: Effort & Inspection: normal respiratory effort Cardio: Rate: regular rate Rhythm: regular rhythm GI: Palpation (GI): Soft to palpation and nontender Neuro: Cranial nerves: Yes Equal, round and reactive pupils present Extrem: Other: scaly healing areas legsmmacular Assessment and Plan Assessment and plan (1) Septic embolism: Status: Acute Assessment and Plan: There is concern over allergic drug rash legs,now improving Finish 6 weeks course with Daptomycin with CK weekly (2) Infective endocarditis: Status: Acute Time Spent With Patient Time: Total time spent is greater than 50% in coordination of care (as documented) at patient's floor/unit and/or counseling patient: Time with patient: 15 - 24 minutes
[2021-04-28] VITALS: BP 152/70; PULSE 52; RESP 17; TEMP 36.4; O2SAT 96
[2021-04-28 04:00] VITALS: BP 148/85; PULSE 85; RESP 17; TEMP 36.6; O2SAT 96
[2021-04-28] MEDS: oxyCODONE HCl Immed Release 5 MG TABLET PO (05:17)
[2021-04-28 06:06] LABS: Hematocrit 30.7 % (37.0-47.0); Hemoglobin 9.3 g/dl (12.0-16.0); Mean Corpuscular HGB Conc 30.3 g/dl (31.0-35.0); Mean Corpuscular Hemoglobin 27.9 pg (27.0-33.0); Mean Corpuscular Volume 92.2 fL (80.0-98.0); Mean Platelet Volume 9.7 fL (9.4-12.3); Platelet Count 180 X10*3/uL (160-400); Red Blood Count 3.33 X10*6/uL (4.20-5.50); Red Cell Distribution Width 15.5 % (11.0-16.0); White Blood Count 9.1 X10*3/uL (4.8-10.8)
[2021-04-28 06:42] LABS: Anion Gap 13 (12-20); Blood Urea Nitrogen 29 mg/dL (9-16); Calcium 8.7 mg/dL (8.4-10.2); Carbon Dioxide 24 mmol/L (22-29); Chloride 103 mmol/L (96-108); Creatinine Clr Calc Pharmacy 28.5; Estimated Glomerular Filt Rate 26; Glucose Random 132 mg/dL (60-115); Potassium 5.8 mmol/L (3.3-5.1); Sodium 134 mmol/L (135-145)
[2021-04-28 07:55] VITALS: BP 148/80; PULSE 51; RESP 17; TEMP 36.5; O2SAT 98
[2021-04-28] MEDS: guaiFENesin DM 200/20/10 ML 10 ML SYRUP PO ×3 (09:33→18:37)
[2021-04-28] MEDS: predniSONE 20 MG TABLET 40 MG PO (09:34)
[2021-04-28] MEDS: methADONE HCl 20 MG/2 ML ORAL.CONC 55 MG PO (09:34)
[2021-04-28] MEDS: 0.9 % Sodium Chloride Flush 3 ML SYRINGE IVFLUSH ×3 (09:36→23:31)
--- NOTE | 2021-04-28 10:24 | PM.PNNEP ---
Subjective Subjective Date of Service: 04/28/21 Interval history: Rash less itchy No fever No shortness of breath Refuses kidney biopsy Physical Exam Vital Signs: Vital Signs: Last Vital Signs Temp 97.7 F 04/28/21 07:55 Pulse 51 04/28/21 07:55 Resp 17 04/28/21 07:55 BP 148/80 H 04/28/21 07:55 Pulse Ox 98 04/28/21 07:55 BMI result Body Mass Index 24.2 Const: Other: Disheveled General: alert Orientation/consciousness: patient oriented x3 Limitations: no limitations HENMT: Other: tacky mucous membranes Head: Yes normal to inspection Ears: hearing grossly normal bilaterally General nose exam: Normal external nose present Face and sinus: Yes normal facial exam Mouth: Normal oral and palatal mucosa present Throat: Yes posterior oropharynx normal Eyes: General: appearance normal, both eyes and all related structures Pupils: Equal, round and reactive pupils present Neck: Neck: Yes normal visual inspection Chest: Chest palpation & inspection: normal inspection of the chest Resp: Other: coarse breath sounds throughout tachypnea with a rate of 30 Cardio: Rate: regular rate Rhythm: regular rhythm Peripheral pulses: Peripheral pulses 2+ throughout GI: Inspection: Yes normal to inspection Palpation (GI): Soft to palpation and nontender Auscultation: normal bowel sounds Back/Spine/Pelvis: Thoracic/Lumbar Spine: thoracic and lumbar spine normal to inspection Skin: General skin exam: no rashes or lesions noted and petechiae Neuro: Other: diffusely weak General: patient oriented x3, moves all extremities, normal sensation to monofilament and Unable to assess gait Cranial nerves: Yes Equal, round and reactive pupils present Cognition (Neuro): normal cognition Speech: No Abnormal speech present Gait exam (Neuro): Unable to assess gait Motor exam (neuro): 5/5 motor strength present throughout Extrem: Other: General: Yes normal to inspection, Yes no pedal edema and Yes no calf tenderness Objective Data Labs CBC & Chem 7: 04/28/21 05:30 04/28/21 05:30 Labs: Laboratory Results - last 24 hr 04/28/21 04/28/21 05:30 05:30 WBC 9.1 RBC 3.33 L Hgb 9.3 L Hct 30.7 L MCV 92.2 MCH 27.9 MCHC 30.3 L RDW 15.5 Plt Count 180 MPV 9.7 Absolute Nucleated RBC 0.000 Nucleated RBC % (auto) 0.0 Sodium 134 L Potassium 5.8 H Chloride 103 Carbon Dioxide 24 Anion Gap 13 BUN 29 H D Creatinine 2.31 H Estim Creat Clear Calc 28.5 Estimated GFR 26 Random Glucose 132 H Calcium 8.7 Microbiology Microbiology Results: Microbiology 04/16/21 16:53 Pleural Fluid Gram Stain - Final 04/16/21 16:53 Pleural Fluid Routine Culture - Final No growth after 2 days 04/16/21 16:53 Pleural Fluid Anaerobic Culture - Final NO GROWTH AFTER 5 DAYS 04/08/21 16:00 Pleural Fluid Gram Stain - Final 04/08/21 16:00 Pleural Fluid Routine Culture - Final No growth after 2 days 04/08/21 16:00 Pleural Fluid Anaerobic Culture - Final NO GROWTH AFTER 5 DAYS 04/07/21 08:23 Blood - Venous Blood Culture - Final No growth after 5 days. 04/07/21 08:12 Blood - Venous Blood Culture - Final No growth after 5 days. 03/31/21 21:53 Blood - Venous Blood Culture - Final Staphylococcus aureus Strep dysgalactiae ssp equisim 03/31/21 21:53 Blood - Venous Blood Culture - Final Staphylococcus aureus Strep dysgalactiae ssp equisim 04/01/21 Unknown Urine clean catch - Urine fox top Urine Culture - Final Procedures Date of Service Date of Service: 04/28/21 Assessment & Plan Assessment and plan (1) Infective endocarditis: Status: Acute (2) Bacteremia: Status: Acute (3) MELITON (acute kidney injury): Status: Acute Assessment and Plan: 25yo F with history of IV heroin + cocaine abuse, recent RUE cellulitis with open wound,p/w SOB and admitted for severe sepsis found to be bacteremic with TV endocarditis complicated by cavitary septic emboli + bilateral loculated pleural effusions; doing well MELITON - possible Post infectious GN With Hep C and low compliments DDX includes MPGN vs others Possible AIN Would need kidney biopsy She refused Kidney biopsy Empirically started on Prednisone on 04/27/20 ?? Time Spent With Patient Time: Total time spent is greater than 50% in coordination of care (as documented) at patient's floor/unit and/or counseling patient: Time with patient: 15 - 24 minutes Progress Note: Quality Stroke Does the patient have a stroke diagnosis?: No
[2021-04-28 11:47] VITALS: BP 143/82; PULSE 56; RESP 18; TEMP 36.1; O2SAT 98
--- NOTE | 2021-04-28 12:42 | MHC.RECOVRN ---
Spoke with Roseanne at [facility] in [place] to update regarding patient. T/w was informed that patient may return to [facility] as a walk in, M-F [id number]. Roseanne also provided t/w with copy of patient's ID and [facility] card. JARETH aware.
--- NOTE | 2021-04-28 14:00 | MHC.RECOVRN ---
Check in with pt. Pt reports doing well, breathing better when ambulating to the bathroom. T/w informed pt that copy of ID was obtained. Pt would like to connect to [facility] as opposed to [facility]. Pt informed that [facility] should be closest to facility where pt will finish abx. Pt states Oh, I'm not going far. Pt would like to connect to [facility] regardless of placement. T/w will send referral. Discussed with Jinny Wright APRN as well as JARETH.
--- NOTE | 2021-04-28 15:00 | P.PNIM_ITS ---
Subjective Subjective Date of Service: 04/28/21 Interval History: Patient declined PICC line yesterday, and today she is again refusing PICC line , she is thinking about it, no acute overnight issues, no fevers no chills upper extremity rash is fading, no new areas of rash noted. Review of Systems Review of Systems: Yes all other systems are reviewed and are negative Physical Exam Vital Signs: Vital Signs: Last Vital Signs Temp 97.0 F 04/28/21 11:47 Pulse 56 04/28/21 11:47 Resp 18 04/28/21 11:47 BP 143/82 H 04/28/21 11:47 Pulse Ox 98 04/28/21 11:47 BMI result Body Mass Index 24.2 Gen: Sitting comfortably, awake alert, in no acute distress HEENT: sclera anicteric, moist mucus membranes Neck: supple, RIJ placed 04/16/21 Lungs: decreased air entry R base, no wheeze no rhonchi no respiratory distress Heart: regular rate and rhythm, no murmurs Abd: soft, non-tender, non-distended Ext: no edema Skin: warm/well-perfused, palpable purpuric papules and patches on legs, rash on bilateral arm is fading. Neuro: alert and oriented x3, no focal findings Psych: appropriate affect ? Objective Data Active Medications Acetaminophen (Acetaminophen 325 Mg Tablet) 650 mg PO Q6H PRN PRN Reason: Fever Last Admin: 04/23/21 09:59 Dose: 650 mg Documented by: JENI Benzonatate (Benzonatate 100 Mg Capsule) 100 mg PO TID PRN PRN Reason: Cough Last Admin: 04/17/21 16:09 Dose: 100 mg Documented by: TON Guaifenesin/Dextromethorphan (Guaifenesin Dm 200/20/10 Ml 10 Ml Syrup) 10 ml PO QID [facility] Last Admin: 04/28/21 09:33 Dose: 10 ml Documented by: JARROD Hydroxyzine HCl (Hydroxyzine Hcl 25 Mg Tablet) 25 mg PO Q6H PRN PRN Reason: Anxiety Last Admin: 04/19/21 04:55 Dose: 25 mg Documented by: NICOLA Daptomycin 440 mg/ Sodium (Chloride) 58.8 mls @ 100 mls/hr IV Q24H [facility] Last Infusion: 04/27/21 14:02 Dose: 0 mls/hr Documented by: JAY Melatonin (Melatonin 3 Mg Tablet) 6 mg PO BEDTIME PRN PRN Reason: Insomnia Last Admin: 04/17/21 20:01 Dose: 6 mg Documented by: TON Methadone HCl (Methadone Hcl 20 Mg/2 Ml Oral.Conc) 55 mg PO DAILY [facility] Last Admin: 04/28/21 09:34 Dose: 55 mg Documented by: JARROD Nicotine Polacrilex (Nicotine Polacrilex 2 Mg Gum) 2 mg BUCCAL Q2H PRN PRN Reason: Nicotine Cravings Last Admin: 04/04/21 05:47 Dose: 2 mg Documented by: CARMEN Pharmacy Consult (Consult Rx Perform Med Rec) 1 each MISCELLANE ONCE PRN PRN Reason: Consult order Prednisone (Prednisone 20 Mg Tablet) 40 mg PO DAILY [facility] Last Admin: 04/28/21 09:34 Dose: 40 mg Documented by: JARROD Senna (Sennosides 8.6 Mg Tablet) 17.2 mg PO BEDTIME PRN PRN Reason: Constipation Sodium Chloride (0.9 % Sodium Chloride Flush 3 Ml Syringe) 3 ml IVFLUSH QSHIFT [facility] Last Admin: 04/28/21 09:36 Dose: 3 ml Documented by: JARROD Labs CBC & Chem 7: 04/28/21 05:30 04/28/21 05:30 Labs: Laboratory Results - last 24 hr 04/28/21 04/28/21 05:30 05:30 MCV 92.2 MCH 27.9 MCHC 30.3 L RDW 15.5 Plt Count 180 MPV 9.7 Absolute Nucleated RBC 0.000 Nucleated RBC % (auto) 0.0 Anion Gap 13 Estim Creat Clear Calc 28.5 Estimated GFR 26 Random Glucose 132 H Calcium 8.7 Assessment and Plan (1) Septic embolism: Status: Acute (2) Pleural effusion: Status: Acute (3) Infective endocarditis: Status: Acute (4) Cocaine use disorder, severe, dependence: Status: Acute (5) Opioid use disorder, severe, dependence: Status: Acute (6) MELITON (acute kidney injury): Status: Acute Assessment and Plan: hospital d#28 25yo F with history of IV heroin + cocaine abuse, recent RUE cellulitis with open wound p/w SOB and admitted for severe sepsis found to be bacteremic with TV endocarditis complicated by cavitary septic emboli + bilateral loculated pleural effusions developed likely vasculitic drug rash + AIN due to cefazolin # MSSA + Streptococcus dysgalactiae bacteremia/infective endocarditis with 2.77 x 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 # multi focal pneumonia with cavitary septic emboli # loculated bilateral pleural effusions - s/p 7d of vancomycin, then on cefazolin, then switched to daptomycin 04/25/21 due to rash - on d# of IV ABX after clearance of blood cultures 04/07 - RIJ CVC placed 04/16/21 , will need PICC line to complete treatment; patient declined PICC line - L chest tube placed 04/08/21 and underwent chemical decortication with tPA x3d, removed 04/15/21 - R chest tube placed 04/16/21 with small lateral PTX likely trapped lung, removed 04/21/21 # vasculitis rash - likely drug-induced due to cefazolin.? 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 # HCV antibody positive - cleared infection, HCV viral load negative # anemia of chronic disease - total 9 units pRBCs transfused since 04/03/21 and Hb now stable # acute hypoxic resp failure - wean O2 as tolerated # opioid use disorder # cocaine abuse - continue methadone 55 mg/d - CARE Team consulted - HBV immune, HIV negative, HCV antibody-positive and viral load-negative # VTE ppx - SCDs # dispo - will discuss with social services assistant regarding discharge plan since patient refusing PICC line Quality Stroke Does the patient have a stroke diagnosis?: No VTE Prior VTE?: No VTE Risk Level:: Medical - moderate - high VTE Device Contraindication: Treatment Not Indicated VTE Drug Contraindication: N/A - Med Ordered
[2021-04-28 16:00] VITALS: BP 156/87; PULSE 57; RESP 16; TEMP 36.1; O2SAT 97
[2021-04-28] MEDS: Sodium Zirconium Cyclosilicate 5 GM POWD.PACK PO (16:30)
[2021-04-28 23:14] VITALS: BP 172/94; PULSE 45; RESP 20; TEMP 36.7; O2SAT 99
[2021-04-29 02:59] VITALS: BP 175/93; PULSE 80; RESP 20; TEMP 36.7; O2SAT 98
[2021-04-29 06:16] LABS: Anion Gap 13 (12-20); Blood Urea Nitrogen 41 mg/dL (9-16); Calcium 8.9 mg/dL (8.4-10.2); Carbon Dioxide 26 mmol/L (22-29); Chloride 103 mmol/L (96-108); Creatinine Clr Calc Pharmacy 30.2; Estimated Glomerular Filt Rate 28; Glucose Random 89 mg/dL (60-115); Sodium 136 mmol/L (135-145)
[2021-04-29] MEDS: guaiFENesin DM 200/20/10 ML 10 ML SYRUP PO ×3 (07:37→17:53)
[2021-04-29] MEDS: Insulin Regular, Human 100 UNIT/ML 3 ML VIAL IVPUSH (07:37)
[2021-04-29] MEDS: methADONE HCl 20 MG/2 ML ORAL.CONC 55 MG PO (07:38)
[2021-04-29] MEDS: predniSONE 20 MG TABLET 40 MG PO (07:38)
[2021-04-29] MEDS: 0.9 % Sodium Chloride Flush 3 ML SYRINGE IVFLUSH ×3 (07:38→22:14)
[2021-04-29 07:46] VITALS: BP 168/80; PULSE 60; RESP 20; TEMP 36.2; O2SAT 100
--- NOTE | 2021-04-29 10:35 | PM.PNNEP ---
Subjective Subjective Date of Service: 04/30/21 Interval history: Patient declined PICC line yesterday, and today she is again refusing PICC line , she is thinking about it, no acute overnight issues, no fevers no chills upper extremity rash is fading, no new areas of rash noted. Physical Exam Vital Signs: Vital Signs: Last Vital Signs Temp 97.1 F 04/29/21 07:46 Pulse 60 04/29/21 07:46 Resp 20 04/29/21 07:46 BP 168/80 H 04/29/21 07:46 Pulse Ox 100 04/29/21 07:46 BMI result Body Mass Index 24.2 Const: Other: Disheveled General: alert Orientation/consciousness: patient oriented x3 Limitations: no limitations Neck: Neck: Yes normal visual inspection Chest: Chest palpation & inspection: normal inspection of the chest Resp: Other: coarse breath sounds throughout tachypnea with a rate of 30 Cardio: Rate: regular rate Rhythm: regular rhythm Peripheral pulses: Peripheral pulses 2+ throughout GI: Inspection: Yes normal to inspection Palpation (GI): Soft to palpation and nontender Auscultation: normal bowel sounds Back/Spine/Pelvis: Thoracic/Lumbar Spine: thoracic and lumbar spine normal to inspection Skin: General skin exam: no rashes or lesions noted and petechiae Neuro: General: patient oriented x3 and Unable to assess gait Cognition (Neuro): normal cognition Speech: No Abnormal speech present Gait exam (Neuro): Unable to assess gait Motor exam (neuro): 5/5 motor strength present throughout Objective Data Labs CBC & Chem 7: 04/28/21 05:30 04/30/21 05:44 Labs: Laboratory Results - last 24 hr 04/29/21 05:18 Sodium 136 Potassium 6.0 H* Chloride 103 Carbon Dioxide 26 Anion Gap 13 BUN 41 H Creatinine 2.18 H Estim Creat Clear Calc 30.2 Estimated GFR 28 Random Glucose 89 Calcium 8.9 Microbiology Microbiology Results: Microbiology 04/16/21 16:53 Pleural Fluid Gram Stain - Final 04/16/21 16:53 Pleural Fluid Routine Culture - Final No growth after 2 days 04/16/21 16:53 Pleural Fluid Anaerobic Culture - Final NO GROWTH AFTER 5 DAYS 04/08/21 16:00 Pleural Fluid Gram Stain - Final 04/08/21 16:00 Pleural Fluid Routine Culture - Final No growth after 2 days 04/08/21 16:00 Pleural Fluid Anaerobic Culture - Final NO GROWTH AFTER 5 DAYS 04/07/21 08:23 Blood - Venous Blood Culture - Final No growth after 5 days. 04/07/21 08:12 Blood - Venous Blood Culture - Final No growth after 5 days. 03/31/21 21:53 Blood - Venous Blood Culture - Final Staphylococcus aureus Strep dysgalactiae ssp equisim 03/31/21 21:53 Blood - Venous Blood Culture - Final Staphylococcus aureus Strep dysgalactiae ssp equisim 04/01/21 Unknown Urine clean catch - Urine fox top Urine Culture - Final Procedures Date of Service Date of Service: 04/29/21 Assessment & Plan Assessment and plan (1) Infective endocarditis: Status: Acute (2) Bacteremia: Status: Acute (3) MELITON (acute kidney injury): Status: Acute Assessment and Plan: 25yo F with history of IV heroin + cocaine abuse, recent RUE cellulitis with open wound,p/w SOB and admitted for severe sepsis found to be bacteremic with TV endocarditis complicated by cavitary septic emboli + bilateral loculated pleural effusions; doing well MELITON - possible Post infectious GN With Hep C and low compliments DDX includes MPGN vs others Possible AIN Would need kidney biopsy She refused Kidney biopsy Empirically started on Prednisone on 04/27/20 Cr is trendig down Now with HTN and mild hyperkalemia Agree with Anne Would ADD Lasix 40 mg QD x 3 days - This should help to lower BP and correct hyperkalemia If BP remains high, we can add Amlodipine 5 mg QD ?? Time Spent With Patient Time: Total time spent is greater than 50% in coordination of care (as documented) at patient's floor/unit and/or counseling patient: Progress Note: Quality Stroke Does the patient have a stroke diagnosis?: No
[2021-04-29 11:46] VITALS: BP 162/90; PULSE 57; RESP 20; TEMP 36.1; O2SAT 98
[2021-04-29] MEDS: Sodium Zirconium Cyclosilicate 10 GM POWD.PACK PO (12:09)
--- NOTE | 2021-04-29 13:36 | MHC.CLN ---
F/U DIET=REGULAR, SUPPLEMENT ENSURE TID (1050 KCAL, 60 G PROTEIN) INTAKE VARIABLE X 4 DAYS, 25-100%. NEPHROLOGY FOLLOWING PATIENT WITH REC TO ADD LASIX TO HELP CORRECT HYPERKALEMIA. SKIN ISSUES NOT PRESSURE RELATED. RD CONTINUES TO FOLLOW WEEKLY.
--- NOTE | 2021-04-29 13:57 | P.PNIM_ITS ---
Subjective Subjective Date of Service: 04/29/21 Interval History: Patient continue to refuse PICC line this morning, informed her that without picc cannot treat her infection and she is at risk for sepsis heart failure with endocarditis and high risk for , after prolonged explain a alfaro patient agreed for PICC line, TLC needs to come out due to risk of infection, patient denies fever chills no other acute issues overnight, noted to have high blood pressure and hyperkalemia. Physical Exam Vital Signs: Vital Signs: Last Vital Signs Temp 97.0 F 04/29/21 11:46 Pulse 57 04/29/21 11:46 Resp 20 04/29/21 11:46 BP 162/90 H 04/29/21 11:46 Pulse Ox 98 04/29/21 11:46 BMI result Body Mass Index 24.2 Gen:? Sitting comfortably, awake alert, in no acute distress Neck: supple, RIJ placed 04/16/21 Lungs: no wheeze, no rhonchi, no respiratory distress, diminished breath sound at bases Heart: regular rate and rhythm, no murmurs Abd: soft, non-tender, non-distended Ext: no edema Skin: warm/well-perfused, palpable purpuric papules and patches on legs, rash on bilateral arm is fading. Neuro: alert and oriented x3, no focal findings Psych: appropriate affect ? Objective Data Active Medications Acetaminophen (Acetaminophen 325 Mg Tablet) 650 mg PO Q6H PRN PRN Reason: Fever Last Admin: 04/23/21 09:59 Dose: 650 mg Documented by: JENI Benzonatate (Benzonatate 100 Mg Capsule) 100 mg PO TID PRN PRN Reason: Cough Last Admin: 04/17/21 16:09 Dose: 100 mg Documented by: TON Guaifenesin/Dextromethorphan (Guaifenesin Dm 200/20/10 Ml 10 Ml Syrup) 10 ml PO QID [facility] Last Admin: 04/29/21 13:33 Dose: 10 ml Documented by: JAYASHREE Hydroxyzine HCl (Hydroxyzine Hcl 25 Mg Tablet) 25 mg PO Q6H PRN PRN Reason: Anxiety Last Admin: 04/19/21 04:55 Dose: 25 mg Documented by: NICOLA Daptomycin 440 mg/ Sodium (Chloride) 58.8 mls @ 100 mls/hr IV Q24H [facility] Last Admin: 04/29/21 13:42 Dose: 100 mls/hr Documented by: JAYASHREE Melatonin (Melatonin 3 Mg Tablet) 6 mg PO BEDTIME PRN PRN Reason: Insomnia Last Admin: 04/17/21 20:01 Dose: 6 mg Documented by: TON Methadone HCl (Methadone Hcl 20 Mg/2 Ml Oral.Conc) 55 mg PO DAILY [facility] Last Admin: 04/29/21 07:38 Dose: 55 mg Documented by: JARROD Nicotine Polacrilex (Nicotine Polacrilex 2 Mg Gum) 2 mg BUCCAL Q2H PRN PRN Reason: Nicotine Cravings Last Admin: 04/04/21 05:47 Dose: 2 mg Documented by: CARMEN Pharmacy Consult (Consult Rx Perform Med Rec) 1 each MISCELLANE ONCE PRN PRN Reason: Consult order Prednisone (Prednisone 20 Mg Tablet) 40 mg PO DAILY [facility] Last Admin: 04/29/21 07:38 Dose: 40 mg Documented by: JARROD Senna (Sennosides 8.6 Mg Tablet) 17.2 mg PO BEDTIME PRN PRN Reason: Constipation Sodium Chloride (0.9 % Sodium Chloride Flush 3 Ml Syringe) 3 ml IVFLUSH QSHIFT [facility] Last Admin: 04/29/21 07:38 Dose: 3 ml Documented by: JARROD Labs CBC & Chem 7: 04/28/21 05:30 04/29/21 05:18 Labs: Laboratory Results - last 24 hr 04/29/21 05:18 Anion Gap 13 Estim Creat Clear Calc 30.2 Estimated GFR 28 Random Glucose 89 Calcium 8.9 Assessment and Plan (1) Hyponatremia: Status: Acute (2) Septic embolism: Status: Acute (3) Infective endocarditis: Status: Acute (4) Cocaine use disorder, severe, dependence: Status: Acute (5) Opioid use disorder, severe, dependence: Status: Acute (6) Acute respiratory failure with hypoxia: Status: Acute (7) Transaminitis: Status: Acute (8) MELITON (acute kidney injury): Status: Acute Assessment and Plan: 25yo F with history of IV heroin + cocaine abuse, recent RUE cellulitis with open wound p/w SOB and admitted for severe sepsis found to be bacteremic with TV endocarditis complicated by cavitary septic emboli + bilateral loculated pleural effusions developed likely vasculitic drug rash + AIN due to cefazolin # MSSA + Streptococcus dysgalactiae bacteremia/infective endocarditis with 2.77 x 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 # multi focal pneumonia with cavitary septic emboli # loculated bilateral pleural effusions - s/p 7d of vancomycin, then on cefazolin, then switched to daptomycin 04/25/21 due to rash - on d# of IV ABX after clearance of blood cultures 04/07 - RIJ CVC placed 04/16/21 , patient agreed for PICC line that will be placed tomorrow - L chest tube placed 04/08/21 and underwent chemical decortication with tPA x 3d, removed 04/15/21 - R chest tube placed 04/16/21 with small lateral PTX likely trapped lung, kandy david 04/21/21 -medical social worker looking for rehab bed to finish course of antibiotic # vasculitis rash - likely drug-induced due to cefazolin.? changed to daptomycin 04/25/21, rash is improving # elevated blood pressure Case discussed with Nephrology will add Lasix 40 mg daily for 3 days if BP remains elevated then will add Norvasc 5 mg daily. 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 will treat with Lokelma 10 g, repeat BMP at a.m. # HCV antibody positive - cleared infection, HCV viral load negative # anemia of chronic disease - total 9 units pRBCs transfused since 04/03/21 and Hb now stable # acute hypoxic resp failure - wean O2 as tolerated, finger oximetry 98% on 2 L # opioid use disorder/cocaine abuse - continue methadone 55 mg/d - CARE Team consulted - HBV immune, HIV negative, HCV antibody-positive and viral load-negative # VTE ppx - SCDs # dispo to rehab once medically stable Quality Stroke Does the patient have a stroke diagnosis?: No VTE Prior VTE?: No VTE Risk Level:: Medical - moderate - high VTE Device Contraindication: Treatment Not Indicated VTE Drug Contraindication: N/A - Med Ordered
[2021-04-29 16:00] VITALS: BP 165/91; PULSE 52; RESP 16; TEMP 36.4; O2SAT 98
[2021-04-29 19:54] VITALS: BP 160/89; PULSE 59; RESP 18; TEMP 36.2; O2SAT 99
[2021-04-30] VITALS (7 sets, daily range): BP systolic 148–173; BP diastolic 79–91; PULSE 50–61; RESP 16–20; TEMP 35.9–37.1; O2SAT 93–99
[2021-04-30 06:19] LABS: Anion Gap 12 (12-20); Blood Urea Nitrogen 46 mg/dL (9-16); Calcium 8.6 mg/dL (8.4-10.2); Carbon Dioxide 27 mmol/L (22-29); Chloride 104 mmol/L (96-108); Creatinine Clr Calc Pharmacy 32.9; Estimated Glomerular Filt Rate 31; Glucose Random 73 mg/dL (60-115); Potassium 5.4 mmol/L (3.3-5.1); Sodium 138 mmol/L (135-145)
[2021-04-30] MEDS: guaiFENesin DM 200/20/10 ML 10 ML SYRUP PO (07:40)
[2021-04-30] MEDS: predniSONE 20 MG TABLET 40 MG PO (07:40)
[2021-04-30] MEDS: methADONE HCl 20 MG/2 ML ORAL.CONC 55 MG PO (07:41)
[2021-04-30] MEDS: Furosemide 40 MG TABLET PO (07:41)
[2021-04-30] MEDS: 0.9 % Sodium Chloride Flush 3 ML SYRINGE IVFLUSH ×3 (07:42→20:38)
--- NOTE | 2021-04-30 10:33 | PM.PNNEP ---
Subjective Subjective Date of Service: 04/30/21 Interval history: Events noted Started Lasix 40 mg 04/29/20 Physical Exam Vital Signs: Vital Signs: Last Vital Signs Temp 97.1 F 04/30/21 08:00 Pulse 61 04/30/21 08:00 Resp 20 04/30/21 08:00 BP 150/79 H 04/30/21 08:00 Pulse Ox 98 04/30/21 08:00 BMI result Body Mass Index 24.2 Const: Other: Disheveled General: alert Orientation/consciousness: patient oriented x3 Limitations: no limitations HENMT: Other: tacky mucous membranes Head: Yes normal to inspection Ears: hearing grossly normal bilaterally General nose exam: Normal external nose present Face and sinus: Yes normal facial exam Mouth: Normal oral and palatal mucosa present Throat: Yes posterior oropharynx normal Eyes: General: appearance normal, both eyes and all related structures Pupils: Equal, round and reactive pupils present Neck: Neck: Yes normal visual inspection Chest: Chest palpation & inspection: normal inspection of the chest Resp: Other: coarse breath sounds throughout tachypnea with a rate of 30 Cardio: Rate: regular rate Rhythm: regular rhythm Peripheral pulses: Peripheral pulses 2+ throughout GI: Inspection: Yes normal to inspection Palpation (GI): Soft to palpation and nontender Auscultation: normal bowel sounds Back/Spine/Pelvis: Thoracic/Lumbar Spine: thoracic and lumbar spine normal to inspection Skin: General skin exam: no rashes or lesions noted and petechiae Neuro: Other: diffusely weak General: patient oriented x3, moves all extremities, normal sensation to monofilament and Unable to assess gait Cranial nerves: Yes Equal, round and reactive pupils present Cognition (Neuro): normal cognition Speech: No Abnormal speech present Gait exam (Neuro): Unable to assess gait Motor exam (neuro): 5/5 motor strength present throughout Extrem: Other: General: Yes normal to inspection, Yes no pedal edema and Yes no calf tenderness Objective Data Labs CBC & Chem 7: 04/28/21 05:30 04/30/21 05:44 Labs: Laboratory Results - last 24 hr 04/30/21 05:44 Sodium 138 Potassium 5.4 H Chloride 104 Carbon Dioxide 27 Anion Gap 12 BUN 46 H Creatinine 2.00 H Estim Creat Clear Calc 32.9 Estimated GFR 31 Random Glucose 73 Calcium 8.6 Microbiology Microbiology Results: Microbiology 04/16/21 16:53 Pleural Fluid Gram Stain - Final 04/16/21 16:53 Pleural Fluid Routine Culture - Final No growth after 2 days 04/16/21 16:53 Pleural Fluid Anaerobic Culture - Final NO GROWTH AFTER 5 DAYS 04/08/21 16:00 Pleural Fluid Gram Stain - Final 04/08/21 16:00 Pleural Fluid Routine Culture - Final No growth after 2 days 04/08/21 16:00 Pleural Fluid Anaerobic Culture - Final NO GROWTH AFTER 5 DAYS 04/07/21 08:23 Blood - Venous Blood Culture - Final No growth after 5 days. 04/07/21 08:12 Blood - Venous Blood Culture - Final No growth after 5 days. 03/31/21 21:53 Blood - Venous Blood Culture - Final Staphylococcus aureus Strep dysgalactiae ssp equisim 03/31/21 21:53 Blood - Venous Blood Culture - Final Staphylococcus aureus Strep dysgalactiae ssp equisim 04/01/21 Unknown Urine clean catch - Urine fox top Urine Culture - Final Procedures Date of Service Date of Service: 04/30/21 Assessment & Plan Assessment and plan (1) Infective endocarditis: Status: Acute (2) Bacteremia: Status: Acute (3) MELITON (acute kidney injury): Status: Acute Assessment and Plan: 25yo F with history of IV heroin + cocaine abuse, recent RUE cellulitis with open wound,p/w SOB and admitted for severe sepsis found to be bacteremic with TV endocarditis complicated by cavitary septic emboli + bilateral loculated pleural effusions; doing well MELITON - possible Post infectious GN With Hep C and low compliments DDX includes MPGN vs others Possible AIN Would need kidney biopsy She refused Kidney biopsy Empirically started on Prednisone on 04/27/20 Cr is trending down Now with HTN and mild hyperkalemia Lokelma if K > 5.5 Keep Lasix 40 mg QD x 2more days - This should help to lower BP and correct hyperkalemia If BP remains high, we can add Amlodipine 5 mg QD ?? Time Spent With Patient Time: Total time spent is greater than 50% in coordination of care (as documented) at patient's floor/unit and/or counseling patient: Time with patient: 15 - 24 minutes Progress Note: Quality Stroke Does the patient have a stroke diagnosis?: No
--- NOTE | 2021-04-30 11:48 | PC.NURSE ---
TLC removed from right IJ utilizing sterile technique. Site without redness, drainage or warmth. Catheter noted to be intact with blue tip. Xeroform dsg, dsd and Tegardem applied.
[2021-04-30] MEDS: Lidocaine HCl 1 % 20 ML VIAL 6 ML INFILTRATI (14:14)
--- NOTE | 2021-04-30 14:35 | HO.PM.IMPN ---
Subjective Subjective Date of Service: 04/30/21 Interval History: Underwent PICC line placement this morning, feeling better, denies itching no new areas of rash, blood pressure remains elevated this morning, denies nausea vomiting abdominal pain tolerating diet no fevers no chills no other acute issues overnight. Review of Systems Review of Systems: Yes all other systems are reviewed and are negative Physical Exam Vital Signs: Vital Signs: Last Vital Signs Temp 98.1 F 04/30/21 11:18 Pulse 54 04/30/21 11:18 Resp 20 04/30/21 11:18 BP 158/91 H 04/30/21 11:18 Pulse Ox 98 04/30/21 11:18 BMI result Body Mass Index 24.2 Gen:? Sitting comfortably, awake alert, in no acute distress Neck: supple, RIJ placed 04/16/21 Lungs: no wheeze, no rhonchi, no respiratory distress, diminished breath sound at bases Heart: regular rate and rhythm, no murmurs Abd: soft, non-tender, non-distended Ext: no edema Skin: warm/well-perfused, palpable purpuric papules and patches on legs gradually fading, rash on bilateral arm improved. Neuro: alert and oriented x3, no focal findings Psych: appropriate affect Objective Data Active Medications Acetaminophen (Acetaminophen 325 Mg Tablet) 650 mg PO Q6H PRN PRN Reason: Fever Last Admin: 04/23/21 09:59 Dose: 650 mg Documented by: JENI Benzonatate (Benzonatate 100 Mg Capsule) 100 mg PO TID PRN PRN Reason: Cough Last Admin: 04/17/21 16:09 Dose: 100 mg Documented by: TON Furosemide (Furosemide 40 Mg Tablet) 40 mg PO DAILY [facility]; Protocol Last Admin: 04/30/21 07:41 Dose: 40 mg Documented by: MAT Guaifenesin/Dextromethorphan (Guaifenesin Dm 200/20/10 Ml 10 Ml Syrup) 10 ml PO QID [facility] Last Admin: 04/30/21 14:20 Dose: Not Given Documented by: MAT Non-Admin Reason: Patient Refused Hydroxyzine HCl (Hydroxyzine Hcl 25 Mg Tablet) 25 mg PO Q6H PRN PRN Reason: Anxiety Last Admin: 04/19/21 04:55 Dose: 25 mg Documented by: NICOLA Daptomycin 440 mg/ Sodium (Chloride) 58.8 mls @ 100 mls/hr IV Q24H [facility] Last Admin: 04/30/21 14:19 Dose: 100 mls/hr Documented by: MAT Melatonin (Melatonin 3 Mg Tablet) 6 mg PO BEDTIME PRN PRN Reason: Insomnia Last Admin: 04/17/21 20:01 Dose: 6 mg Documented by: TON Methadone HCl (Methadone Hcl 20 Mg/2 Ml Oral.Conc) 55 mg PO DAILY [facility] Last Admin: 04/30/21 07:41 Dose: 55 mg Documented by: MAT Nicotine Polacrilex (Nicotine Polacrilex 2 Mg Gum) 2 mg BUCCAL Q2H PRN PRN Reason: Nicotine Cravings Last Admin: 04/04/21 05:47 Dose: 2 mg Documented by: CARMEN Pharmacy Consult (Consult Rx Perform Med Rec) 1 each MISCELLANE ONCE PRN PRN Reason: Consult order Prednisone (Prednisone 20 Mg Tablet) 40 mg PO DAILY [facility] Last Admin: 04/30/21 07:40 Dose: 40 mg Documented by: MAT Senna (Sennosides 8.6 Mg Tablet) 17.2 mg PO BEDTIME PRN PRN Reason: Constipation Sodium Chloride (0.9 % Sodium Chloride Flush 3 Ml Syringe) 3 ml IVFLUSH QSHIFT [facility] Last Admin: 04/30/21 07:42 Dose: 3 ml Documented by: MAT Labs CBC & Chem 7: 04/28/21 05:30 04/30/21 05:44 Labs: Laboratory Results - last 24 hr 04/30/21 05:44 Anion Gap 12 Estim Creat Clear Calc 32.9 Estimated GFR 31 Random Glucose 73 Calcium 8.6 Assessment and Plan (1) Hyponatremia: Status: Acute (2) Pleural effusion: Status: Acute (3) Elevated blood pressure reading: Status: Acute (4) Septic embolism: Status: Acute (5) Infective endocarditis: Status: Acute (6) Cocaine use disorder, severe, dependence: Status: Acute (7) Opioid use disorder, severe, dependence: Status: Acute (8) Acute respiratory failure with hypoxia: Status: Acute (9) Transaminitis: Status: Acute Assessment and Plan: 25yo F with history of IV heroin + cocaine abuse, recent RUE cellulitis with open wound p/w SOB and admitted for severe sepsis found to be bacteremic with TV endocarditis complicated by cavitary septic emboli + bilateral loculated pleural effusions developed likely vasculitic drug rash + AIN due to cefazolin # MSSA + Streptococcus dysgalactiae bacteremia/infective endocarditis with 2.77 x 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/ multi focal pneumonia with cavitary septic emboli/ loculated bilateral pleural effusions - s/p 7d of vancomycin, then on cefazolin, then switched to daptomycin 04/25/21 due to rash - on d# of IV ABX after clearance of blood cultures 04/07 - RIJ CVC placed 04/16/21 , PICC line placed today 04/30/20, will remove TLC today - L chest tube placed 04/08/21 and underwent chemical decortication with tPA x3d, removed 04/15/21 - R chest tube placed 04/16/21 with small lateral PTX likely trapped lung, removed 04/21/21 - social media editor looking for rehab bed to finish course of antibiotic # vasculitis rash - likely drug-induced due to cefazolin.? changed to daptomycin 04/25/21, rash is improving # elevated blood pressure ?? 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 Being followed closely by Nephrology patient refused renal biopsy. # hyperkalemia potassium 5.4 this a.m. s/p [facility] , repeat? BMP at a.m. # HCV antibody positive - cleared infection, HCV viral load negative # anemia of chronic disease - total 9 units pRBCs transfused since 04/03/21 and Hb now stable # acute hypoxic resp failure - wean O2 finger oximetry 98% on 2 L # opioid use disorder/cocaine abuse - continue methadone 55 mg/d - CARE Team consulted - HBV immune, HIV negative, HCV antibody-positive and viral load-negative # VTE ppx - SCDs # dispo to rehab once medically stable Quality Stroke Does the patient have a stroke diagnosis?: No VTE Prior VTE?: No VTE Risk Level:: Medical - moderate - high VTE Device Contraindication: Treatment Not Indicated VTE Drug Contraindication: N/A - Med Ordered
--- NOTE | 2021-04-30 16:04 | MHC.CM.PN ---
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 patient broad search for rehab for physical therapy and iv /pic line abx patiwnt was stAARTED HER ON METHADONE BY PEDRO [facility]LEZ , PER ADDICTION RECOVERY NURSE PATIENT IN THE PAST WENT TO [facility] [place] COPY OF HER SOFTWARE APPLICATIONS ARCHITECT LICENSE OBTAINED AND PATIENT HAS COPY AND COPY IN PAPERCHART , PER HOSPITLAIST SOON WE CAN SECURE BED S]PATIENT CAN BE DISCHARGE D STR - PHYSICl therapy , wound assessment , pic line iv abx and methadone administration broad search sent out transportation will gal action bls
[2021-05-01 03:47] VITALS: BP 154/66; PULSE 53; RESP 18; TEMP 36.2; O2SAT 99
[2021-05-01 06:28] LABS: Anion Gap 10 (12-20); Blood Urea Nitrogen 48 mg/dL (9-16); Carbon Dioxide 30 mmol/L (22-29); Chloride 103 mmol/L (96-108); Creatinine Clr Calc Pharmacy 36.1; Estimated Glomerular Filt Rate 34; Glucose Random 72 mg/dL (60-115); Potassium 5.4 mmol/L (3.3-5.1); Sodium 138 mmol/L (135-145)
[2021-05-01 08:00] VITALS: BP 161/83; PULSE 54; RESP 18; TEMP 36.3; O2SAT 99
[2021-05-01] MEDS: amLODIPine Besylate 5 MG TABLET PO (08:50)
[2021-05-01] MEDS: Furosemide 40 MG TABLET PO (08:50)
[2021-05-01] MEDS: 0.9 % Sodium Chloride Flush 3 ML SYRINGE IVFLUSH ×2 (08:50→15:11)
[2021-05-01] MEDS: predniSONE 20 MG TABLET 40 MG PO (08:50)
[2021-05-01] MEDS: methADONE HCl 20 MG/2 ML ORAL.CONC 55 MG PO (08:51)
[2021-05-01 11:58] VITALS: BP 123/70; PULSE 57; RESP 18; TEMP 36.4; O2SAT 98
--- NOTE | 2021-05-01 13:26 | MHC.CM.PN ---
SNF REFERRALS UPDATED WITH REQUEST FOR BED OFFER. PICC REPORT UPLOADED
--- NOTE | 2021-05-01 13:49 | P.PNIM_ITS ---
Subjective Subjective Date of Service: 05/01/21 Interval History: Feeling better this morning in good mood denies pain, no shortness of breath, no fever, no chills, no chest pain, and triple-lumen removed, no other acute issues overnight Review of Systems Review of Systems: Yes all other systems are reviewed and are negative Physical Exam Vital Signs: Vital Signs: Last Vital Signs Temp 97.5 F 05/01/21 11:58 Pulse 57 05/01/21 11:58 Resp 18 05/01/21 11:58 BP 123/70 05/01/21 11:58 Pulse Ox 98 05/01/21 11:58 BMI result Body Mass Index 24.2 Gen:? Sitting comf ortably, awake binh rt, in no acute di stress Neck: Supp le Lungs: no wheez e, no rhonchi, no respiratory distre ss, diminished zoraida ath sound at bases Heart: regular ra te and rhythm, no murmurs Abd: soft, non-tender, non-d istended Ext: no e laurita Skin: warm/we ll-perfused, palpa ble purpuric papul es and patches on legs gradually fad ing, rash on bilat eral arm resolved. Neuro: alert and oriented x3, no fo tomi findings Psych : appropriate affe ct Objective Data Active Medications Acetaminophen (Acetaminophen 325 Mg Tablet) 650 mg PO Q6H PRN PRN Reason: Fever Last Admin: 04/23/21 09:59 Dose: 650 mg Documented by: JENI Amlodipine Besylate (Amlodipine Besylate 5 Mg Tablet) 5 mg PO DAILY [facility]; Protocol Last Admin: 05/01/21 08:50 Dose: 5 mg Documented by: JOSEFA Benzonatate (Benzonatate 100 Mg Capsule) 100 mg PO TID PRN PRN Reason: Cough Last Admin: 04/17/21 16:09 Dose: 100 mg Documented by: TON Furosemide (Furosemide 40 Mg Tablet) 40 mg PO DAILY [facility]; Protocol Last Admin: 05/01/21 08:50 Dose: 40 mg Documented by: JOSEFA Guaifenesin/Dextromethorphan (Guaifenesin Dm 200/20/10 Ml 10 Ml Syrup) 10 ml PO QID [facility] Last Admin: 05/01/21 13:03 Dose: Not Given Documented by: JOSEFA Non-Admin Reason: Patient Refused Hydroxyzine HCl (Hydroxyzine Hcl 25 Mg Tablet) 25 mg PO Q6H PRN PRN Reason: Anxiety Last Admin: 04/19/21 04:55 Dose: 25 mg Documented by: NICOLA Daptomycin 440 mg/ Sodium (Chloride) 58.8 mls @ 100 mls/hr IV Q24H [facility] Last Infusion: 04/30/21 15:02 Dose: 0 mls/hr Documented by: MAT Melatonin (Melatonin 3 Mg Tablet) 6 mg PO BEDTIME PRN PRN Reason: Insomnia Last Admin: 04/17/21 20:01 Dose: 6 mg Documented by: TON Methadone HCl (Methadone Hcl 20 Mg/2 Ml Oral.Conc) 55 mg PO DAILY [facility] Last Admin: 05/01/21 08:51 Dose: 55 mg Documented by: JOSEFA Nicotine Polacrilex (Nicotine Polacrilex 2 Mg Gum) 2 mg BUCCAL Q2H PRN PRN Reason: Nicotine Cravings Last Admin: 04/04/21 05:47 Dose: 2 mg Documented by: CARMEN Pharmacy Consult (Consult Rx Perform Med Rec) 1 each MISCELLANE ONCE PRN PRN Reason: Consult order Prednisone (Prednisone 20 Mg Tablet) 40 mg PO DAILY [facility] Last Admin: 05/01/21 08:50 Dose: 40 mg Documented by: JOSEFA Senna (Sennosides 8.6 Mg Tablet) 17.2 mg PO BEDTIME PRN PRN Reason: Constipation Sodium Chloride (0.9 % Sodium Chloride Flush 3 Ml Syringe) 3 ml IVFLUSH QSHIFT [facility] Last Admin: 05/01/21 08:50 Dose: 3 ml Documented by: JOSEFA Labs CBC & Chem 7: 04/28/21 05:30 05/01/21 05:26 Labs: Laboratory Results - last 24 hr 05/01/21 05:26 Anion Gap 10 L Estim Creat Clear Calc 36.1 Estimated GFR 34 Random Glucose 72 Calcium 9.0 Assessment and Plan (1) Elevated blood pressure reading: Status: Acute (2) Hyponatremia: Status: Acute (3) Pleural effusion: Status: Acute (4) Septic embolism: Status: Acute (5) Infective endocarditis: Status: Acute (6) Cocaine use disorder, severe, dependence: Status: Acute (7) Opioid use disorder, severe, dependence: Status: Acute (8) Acute respiratory failure with hypoxia: Status: Acute (9) Transaminitis: Status: Acute Assessment and Plan: 25yo F with history of IV heroin + cocaine abuse, recent RUE cellulitis with open wound p/w SOB and admitted for severe sepsis found to be bacteremic with TV endocarditis complicated by cavitary septic emboli + bilateral loculated pleural effusions developed likely vasculitic drug rash + AIN due to cefazolin # MSSA + Streptococcus dysgalactiae bacteremia/infective endocarditis with 2.77 x 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/ multi focal pneumonia with cavitary septic emboli/ loculated bilateral pleural effusions - s/p 7d of vancomycin, then on cefazolin, then switched to daptomycin 04/25/21 due to rash - on d#24 of IV ABX after clearance of blood cultures 04/07 - RIJ CVC placed 04/16/21 removed on April 30 - PICC line placed on 04/30/20 - L chest tube placed 04/08/21 and underwent chemical decortication with tPA x3d, removed 04/15/21 - R chest tube placed 04/16/21 with small lateral PTX likely trapped lung, removed 04/21/21 - social secretary looking for rehab bed to finish course of antibiotic # vasculitis rash - likely drug-induced due to cefazolin.? changed to daptomycin 04/25/21, rash is improving # elevated blood pressure ?? Case discussed with Nephrology started on Lasix 40 mg daily 04/29 for 3 days BP remains elevated, discussed with Nephrology they recommend to place patient on hydrochlorothiazide 25 mg daily starting tomorrow. 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 Being followed closely by Nephrology patient refused renal biopsy. # hyperkalemia potassium 5.4 this a.m. s/p Brendanpr , follow BMP at a.m. # HCV antibody positive - cleared infection, HCV viral load negative # anemia of chronic disease - total 9 units pRBCs transfused since 04/03/21 and Hb now stable # acute hypoxic resp failure - wean O2? finger oximetry 98% on 2 L # opioid use disorder/cocaine abuse - continue methadone 55 mg/d - CARE Team consulted - HBV immune, HIV negative, HCV antibody-positive and viral load-negative # VTE ppx - SCDs # dispo to rehab on Tuesday to [facility]. Quality Stroke Does the patient have a stroke diagnosis?: No VTE Prior VTE?: No VTE Risk Level:: Medical - moderate - high VTE Device Contraindication: Treatment Not Indicated VTE Drug Contraindication: N/A - Med Ordered
--- NOTE | 2021-05-01 13:58 | MHC.CM.PN ---
Addendum entered by Paula Torres 05/01/21 14:22: PATIENT CURRENTLY AT 24/52 DAYS ON IV ABX. NOW NEEDS 18 DAYS Original Note: PATIENT IS OFFERED A BED FOR MAY 04 AT [facility] PATIENT AWARE SHE STATES THAT SHE DOES NOT WANT TO LEAVE THE AREA. SHE IS ALSO AWARE THAT THERE ARE NO LOCAL BED OFFERS FOR PATIENT, NOR DO WE ANTICIPATE ANY BED OFFERS LOCALLY. PATIENT IS AWARE THAT FACILITY WILL DISCHARGE PATIENT WHEN SHE IS COMPLETED HER REHAB STAY
[2021-05-01 15:56] VITALS: BP 126/67; PULSE 56; RESP 18; TEMP 36.1; O2SAT 97
--- NOTE | 2021-05-01 16:00 | PM.PNNEP ---
Subjective Subjective Date of Service: 05/01/21 Interval history: Feeling better this morning in good mood denies pain, no shortness of breath, no fever, no chills, no chest pain, and triple-lumen removed, no other acute issues overnight Physical Exam Vital Signs: Vital Signs: Last Vital Signs Temp 97.0 F 05/01/21 15:56 Pulse 56 05/01/21 15:56 Resp 18 05/01/21 15:56 BP 126/67 05/01/21 15:56 Pulse Ox 97 05/01/21 15:56 BMI result Body Mass Index 24.2 Const: Other: Disheveled General: no acute distress, lethargic and tired appearing Orientation/consciousness: lethargic Resp: Effort & Inspection: normal respiratory effort, normal respiratory pattern, no audible wheezes and no cough Cardio: Jugular venous distension: no JVD Rate: regular rate Rhythm: regular rhythm Heart sounds: S2 normal heart sound present, no gallops and no rubs GI: Palpation (GI): nontender Auscultation: normal bowel sounds Neuro: Other: diffusely weak Speech: No Abnormal speech present Motor exam (neuro): 5/5 motor strength present throughout Objective Data Labs CBC & Chem 7: 04/28/21 05:30 05/01/21 05:26 Labs: Laboratory Results - last 24 hr 05/01/21 05:26 Sodium 138 Potassium 5.4 H Chloride 103 Carbon Dioxide 30 H Anion Gap 10 L BUN 48 H Creatinine 1.82 H Estim Creat Clear Calc 36.1 Estimated GFR 34 Random Glucose 72 Calcium 9.0 Microbiology Microbiology Results: Microbiology 04/16/21 16:53 Pleural Fluid Gram Stain - Final 04/16/21 16:53 Pleural Fluid Routine Culture - Final No growth after 2 days 04/16/21 16:53 Pleural Fluid Anaerobic Culture - Final NO GROWTH AFTER 5 DAYS 04/08/21 16:00 Pleural Fluid Gram Stain - Final 04/08/21 16:00 Pleural Fluid Routine Culture - Final No growth after 2 days 04/08/21 16:00 Pleural Fluid Anaerobic Culture - Final NO GROWTH AFTER 5 DAYS 04/07/21 08:23 Blood - Venous Blood Culture - Final No growth after 5 days. 04/07/21 08:12 Blood - Venous Blood Culture - Final No growth after 5 days. 03/31/21 21:53 Blood - Venous Blood Culture - Final Staphylococcus aureus Strep dysgalactiae ssp equisim 03/31/21 21:53 Blood - Venous Blood Culture - Final Staphylococcus aureus Strep dysgalactiae ssp equisim 04/01/21 Unknown Urine clean catch - Urine fox top Urine Culture - Final Procedures Date of Service Date of Service: 05/01/21 Assessment & Plan Assessment and plan (1) Infective endocarditis: Status: Acute (2) Bacteremia: Status: Acute (3) MELITON (acute kidney injury): Status: Acute Assessment and Plan: 25yo F with history of IV heroin + cocaine abuse, recent RUE cellulitis with open wound,p/w SOB and admitted for severe sepsis found to be bacteremic with TV endocarditis complicated by cavitary septic emboli + bilateral loculated pleural effusions MELITON - possible Post infectious GN With Hep C and low compliments DDX includes MPGN vs others Possible AIN Would need kidney biopsy She refused Kidney biopsy Empirically started on Prednisone on 04/27/20 Cr is trending down Plan: - prednisone 40mg daily started empirically 04/27/21 - taper prednisone to 20mg at 14 days - then taper by 5 mg q5 days thereafter to zero - will need outatpient f/u with [facility] Time Spent With Patient Time: Total time spent is greater than 50% in coordination of care (as documented) at patient's floor/unit and/or counseling patient: Progress Note: Quality Stroke Does the patient have a stroke diagnosis?: No
[2021-05-01 20:00] VITALS: BP 150/73; PULSE 56; RESP 16; TEMP 36.7; O2SAT 93
[2021-05-01 23:48] VITALS: BP 151/76; PULSE 56; RESP 16; TEMP 36.7; O2SAT 97
[2021-05-02] MEDS: 0.9 % Sodium Chloride Flush 3 ML SYRINGE IVFLUSH ×4 (00:41→23:55)
[2021-05-02 04:00] VITALS: BP 148/100; PULSE 64; RESP 16; TEMP 36.6; O2SAT 98
[2021-05-02 08:00] VITALS: BP 148/82; PULSE 55; RESP 18; TEMP 36.6; O2SAT 98
[2021-05-02] MEDS: hydroCHLOROthiazide 25 MG TABLET PO (10:40)
[2021-05-02] MEDS: predniSONE 20 MG TABLET 40 MG PO (10:44)
[2021-05-02] MEDS: methADONE HCl 20 MG/2 ML ORAL.CONC 55 MG PO (10:47)
[2021-05-02 12:00] VITALS: BP 138/76; PULSE 60; RESP 18; TEMP 36.2; O2SAT 96
--- NOTE | 2021-05-02 13:23 | HO.PM.IMPN ---
Subjective Subjective Date of Service: 05/02/21 Interval History: Feeling better denies shortness of breath with ambulation no fevers no chills, no cough no other acute issues overnight finger oximetry 96% on 2 L Review of Systems Review of Systems: Yes all other systems are reviewed and are negative Physical Exam Vital Signs: Vital Signs: Last Vital Signs Temp 97.2 F 05/02/21 12:00 Pulse 60 05/02/21 12:00 Resp 18 05/02/21 12:00 BP 138/76 05/02/21 12:00 Pulse Ox 96 05/02/21 12:00 BMI result Body Mass Index 24.2 Gen:? Sitting comfortably, awake alert, in no acute distress Neck:? Supple Lungs: no wheeze, no rhonchi, no respiratory distress, good air movement Heart: regular rate and rhythm, nomurmurs Abd: soft,?non-tender, non-distended Ext: no edema Skin: warm/well-perfused, palpable purpuric papules and patches on legs gradually fading, rash on bilateral arm resolved. Neuro: alert and oriented x3, no focal findings Psych: appropriate affect Objective Data Active Medications Acetaminophen (Acetaminophen 325 Mg Tablet) 650 mg PO Q6H PRN PRN Reason: Fever Last Admin: 04/23/21 09:59 Dose: 650 mg Documented by: JENI Benzonatate (Benzonatate 100 Mg Capsule) 100 mg PO TID PRN PRN Reason: Cough Last Admin: 04/17/21 16:09 Dose: 100 mg Documented by: TON Guaifenesin/Dextromethorphan (Guaifenesin Dm 200/20/10 Ml 10 Ml Syrup) 10 ml PO QID [facility] Last Admin: 05/02/21 11:02 Dose: Not Given Documented by: MARIAMA Non-Admin Reason: Patient Refused Hydrochlorothiazide (Hydrochlorothiazide 25 Mg Tablet) 25 mg PO DAILY [facility]; Protocol Last Admin: 05/02/21 10:40 Dose: 25 mg Documented by: MARIAMA Hydroxyzine HCl (Hydroxyzine Hcl 25 Mg Tablet) 25 mg PO Q6H PRN PRN Reason: Anxiety Last Admin: 04/19/21 04:55 Dose: 25 mg Documented by: NICOLA Daptomycin 440 mg/ Sodium (Chloride) 58.8 mls @ 100 mls/hr IV Q24H [facility] Last Infusion: 05/01/21 14:58 Dose: 0 mls/hr Documented by: JOSEFA Melatonin (Melatonin 3 Mg Tablet) 6 mg PO BEDTIME PRN PRN Reason: Insomnia Last Admin: 04/17/21 20:01 Dose: 6 mg Documented by: TON Methadone HCl (Methadone Hcl 20 Mg/2 Ml Oral.Conc) 55 mg PO DAILY [facility] Last Admin: 05/02/21 10:47 Dose: 55 mg Documented by: MARIAMA Nicotine Polacrilex (Nicotine Polacrilex 2 Mg Gum) 2 mg BUCCAL Q2H PRN PRN Reason: Nicotine Cravings Last Admin: 04/04/21 05:47 Dose: 2 mg Documented by: CARMEN Pharmacy Consult (Consult Rx Perform Med Rec) 1 each MISCELLANE ONCE PRN PRN Reason: Consult order Prednisone (Prednisone 20 Mg Tablet) 40 mg PO DAILY [facility] Last Admin: 05/02/21 10:44 Dose: 40 mg Documented by: MARIAMA Senna (Sennosides 8.6 Mg Tablet) 17.2 mg PO BEDTIME PRN PRN Reason: Constipation Sodium Chloride (0.9 % Sodium Chloride Flush 3 Ml Syringe) 3 ml IVFLUSH QSHIFT [facility] Last Admin: 05/02/21 11:17 Dose: 3 ml Documented by: MARIAMA Labs CBC & Chem 7: 04/28/21 05:30 05/01/21 05:26 Assessment and Plan (1) Elevated blood pressure reading: Status: Acute (2) Septic embolism: Status: Acute (3) Infective endocarditis: Status: Acute (4) Cocaine use disorder, severe, dependence: Status: Acute (5) Opioid use disorder, severe, dependence: Status: Acute (6) Acute respiratory failure with hypoxia: Status: Acute (7) Transaminitis: Status: Acute Assessment and Plan: 25yo F with history of IV heroin + cocaine abuse, recent RUE cellulitis with open wound p/w SOB and admitted for severe sepsis found to be bacteremic with TV endocarditis complicated by cavitary septic emboli + bilateral loculated pleural effusions developed likely vasculitic drug rash + AIN due to cefazolin # MSSA + Streptococcus dysgalactiae bacteremia/infective endocarditis with 2.77 x 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/ multi focal pneumonia with cavitary septic emboli/ loculated bilateral pleural effusions - s/p 7d of vancomycin, then on cefazolin, then switched to daptomycin 04/25/21 due to rash - on d#[id number] of IV ABX after clearance of blood cultures 04/07 - RIJ CVC placed 04/16/21 removed on April 30 - PICC line placed on 04/30/20 - L chest tube placed 04/08/21 and underwent chemical decortication with tPA x3d, removed 04/15/21 - R chest tube placed 04/16/21 with small lateral PTX likely trapped lung, removed 04/21/21 # vasculitis rash - likely drug-induced due to cefazolin.? changed to daptomycin 04/25/21, rash is improving # elevated blood pressure ?? 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 Being followed closely by Nephrology patient refused renal biopsy. # hyperkalemia potassium 5.4 s/p Lokelma , follow BMP at a.m. # HCV antibody positive - cleared infection, HCV viral load negative # anemia of chronic disease - total 9 units pRBCs transfused since 04/03/21 and Hb now stable # acute hypoxic resp failure - resolved will DC oxygen and follow finger oximetry # opioid use disorder/cocaine abuse - continue methadone 55 mg/d - CARE Team consulted - HBV immune, HIV negative, HCV antibody-positive and viral load-negative # VTE ppx - SCDs # dispo to rehab on Tuesday to [facility]. Quality Stroke Does the patient have a stroke diagnosis?: No VTE Prior VTE?: No VTE Risk Level:: Medical - moderate - high VTE Device Contraindication: Treatment Not Indicated VTE Drug Contraindication: N/A - Med Ordered
[2021-05-02 16:00] VITALS: BP 149/69; PULSE 78; RESP 18; TEMP 36.9; O2SAT 98
--- NOTE | 2021-05-02 17:20 | PM.PNNEP ---
Subjective Subjective Date of Service: 05/02/21 Interval history: BP somewhat better on HCTZ K stable Cr improved BUN rise due to steroids Physical Exam Vital Signs: Vital Signs: Last Vital Signs Temp 98.4 F 05/02/21 16:00 Pulse 78 05/02/21 16:00 Resp 18 05/02/21 16:00 BP 149/69 H 05/02/21 16:00 Pulse Ox 98 05/02/21 16:00 BMI result Body Mass Index 24.2 Const: Other: Disheveled General: no acute distress, lethargic and tired appearing Orientation/consciousness: lethargic Resp: Effort & Inspection: normal respiratory effort, normal respiratory pattern, no audible wheezes and no cough Cardio: Jugular venous distension: no JVD Rate: regular rate Rhythm: regular rhythm Heart sounds: S2 normal heart sound present, no gallops and no rubs GI: Palpation (GI): nontender Auscultation: normal bowel sounds Neuro: Other: diffusely weak Speech: No Abnormal speech present Motor exam (neuro): 5/5 motor strength present throughout Objective Data Labs CBC & Chem 7: 04/28/21 05:30 05/01/21 05:26 Microbiology Microbiology Results: Microbiology 04/16/21 16:53 Pleural Fluid Gram Stain - Final 04/16/21 16:53 Pleural Fluid Routine Culture - Final No growth after 2 days 04/16/21 16:53 Pleural Fluid Anaerobic Culture - Final NO GROWTH AFTER 5 DAYS 04/08/21 16:00 Pleural Fluid Gram Stain - Final 04/08/21 16:00 Pleural Fluid Routine Culture - Final No growth after 2 days 04/08/21 16:00 Pleural Fluid Anaerobic Culture - Final NO GROWTH AFTER 5 DAYS 04/07/21 08:23 Blood - Venous Blood Culture - Final No growth after 5 days. 04/07/21 08:12 Blood - Venous Blood Culture - Final No growth after 5 days. 03/31/21 21:53 Blood - Venous Blood Culture - Final Staphylococcus aureus Strep dysgalactiae ssp equisim 03/31/21 21:53 Blood - Venous Blood Culture - Final Staphylococcus aureus Strep dysgalactiae ssp equisim 04/01/21 Unknown Urine clean catch - Urine fox top Urine Culture - Final Procedures Date of Service Date of Service: 05/02/21 Assessment & Plan Assessment and plan (1) Infective endocarditis: Status: Acute (2) Bacteremia: Status: Acute (3) MELITON (acute kidney injury): Status: Acute Assessment and Plan: 25yo F with history of IV heroin + cocaine abuse, recent RUE cellulitis with open wound,p/w SOB and admitted for severe sepsis found to be bacteremic with TV endocarditis complicated by cavitary septic emboli + bilateral loculated pleural effusions MELITON - 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 Can titrate to 50mg if needed - Lokelma 10g x1 (I ordered this) Time Spent With Patient Time: Total time spent is greater than 50% in coordination of care (as documented) at patient's floor/unit and/or counseling patient: Progress Note: Quality Stroke Does the patient have a stroke diagnosis?: No
[2021-05-02] MEDS: Sodium Zirconium Cyclosilicate 10 GM POWD.PACK PO (17:42)
[2021-05-02 19:25] VITALS: BP 138/75; PULSE 56; RESP 16; TEMP 36.1; O2SAT 95
[2021-05-02 22:52] VITALS: BP 184/86; PULSE 51; RESP 16; TEMP 36.3; O2SAT 97
[2021-05-03 03:49] VITALS: BP 157/88; PULSE 66; RESP 16; TEMP 36.4; O2SAT 95
[2021-05-03 06:21] LABS: Anion Gap 14 (12-20); Blood Urea Nitrogen 42 mg/dL (9-16); Calcium 9.2 mg/dL (8.4-10.2); Carbon Dioxide 29 mmol/L (22-29); Chloride 100 mmol/L (96-108); Creatinine Clr Calc Pharmacy 43.6; Estimated Glomerular Filt Rate 43; Glucose Random 72 mg/dL (60-115); Potassium 4.5 mmol/L (3.3-5.1); Sodium 138 mmol/L (135-145)
[2021-05-03 07:17] LABS: Cryoglobulin, Qual Negative (Negative)
[2021-05-03 08:00] VITALS: BP 175/86; PULSE 63; RESP 17; TEMP 36.1; O2SAT 98
[2021-05-03] MEDS: 0.9 % Sodium Chloride Flush 3 ML SYRINGE IVFLUSH ×2 (09:27→15:21)
[2021-05-03] MEDS: predniSONE 20 MG TABLET 40 MG PO (09:28)
[2021-05-03] MEDS: hydroCHLOROthiazide 25 MG TABLET PO (09:28)
[2021-05-03] MEDS: methADONE HCl 20 MG/2 ML ORAL.CONC 55 MG PO (09:28)
--- NOTE | 2021-05-03 09:51 | HO.PM.IMPN ---
Subjective Subjective Date of Service: 05/03/21 Interval History: Feels tired otherwise offers no other acute complaints, denies shortness of breath, room air oxygenation 96-98%, no overnight acute issues no fevers no chills, patient is aware that she is being discharged tomorrow to [facility]. Review of Systems Review of Systems: Yes all other systems are reviewed and are negative Physical Exam Vital Signs: Vital Signs: Last Vital Signs Temp 96.9 F 05/03/21 08:00 Pulse 63 05/03/21 08:00 Resp 17 05/03/21 08:00 BP 175/86 H 05/03/21 08:00 Pulse Ox 98 05/03/21 08:00 BMI result Body Mass Index 24.2 Gen:? Sitting comfortably, awake alert, in no acute distress Neck:? Supple Lungs: no wheeze, no rhonchi, no respiratory distress, good air movement Heart: regular rate and rhythm, no murmurs Abd: soft,?non-tender, non-distended Ext: no edema Skin: warm/well-perfused, palpable purpuric papules and patches on legs gradually fading, rash on bilateral arm resolved. Neuro: alert and oriented x3, no focal findings Psych: appropriate affect Objective Data Active Medications Acetaminophen (Acetaminophen 325 Mg Tablet) 650 mg PO Q6H PRN PRN Reason: Fever Last Admin: 04/23/21 09:59 Dose: 650 mg Documented by: JENI Benzonatate (Benzonatate 100 Mg Capsule) 100 mg PO TID PRN PRN Reason: Cough Last Admin: 04/17/21 16:09 Dose: 100 mg Documented by: TON Guaifenesin/Dextromethorphan (Guaifenesin Dm 200/20/10 Ml 10 Ml Syrup) 10 ml PO QID CORAZON Last Admin: 05/03/21 09:33 Dose: Not Given Documented by: SATURNINO Non-Admin Reason: Patient Refused Hydrochlorothiazide (Hydrochlorothiazide 25 Mg Tablet) 25 mg PO DAILY COUNT INCLUDES THE [facility]; Protocol Last Admin: 05/03/21 09:28 Dose: 25 mg Documented by: SATURNINO Hydroxyzine HCl (Hydroxyzine Hcl 25 Mg Tablet) 25 mg PO Q6H PRN PRN Reason: Anxiety Last Admin: 04/19/21 04:55 Dose: 25 mg Documented by: NICOLA Melatonin (Melatonin 3 Mg Tablet) 6 mg PO BEDTIME PRN PRN Reason: Insomnia Last Admin: 04/17/21 20:01 Dose: 6 mg Documented by: TON Methadone HCl (Methadone Hcl 20 Mg/2 Ml Oral.Conc) 55 mg PO DAILY COUNT INCLUDES THE [facility] Last Admin: 05/03/21 09:28 Dose: 55 mg Documented by: SATURNINO Nicotine Polacrilex (Nicotine Polacrilex 2 Mg Gum) 2 mg BUCCAL Q2H PRN PRN Reason: Nicotine Cravings Last Admin: 04/04/21 05:47 Dose: 2 mg Documented by: CARMEN Pharmacy Consult (Consult Rx Perform Med Rec) 1 each MISCELLANE ONCE PRN PRN Reason: Consult order Prednisone (Prednisone 20 Mg Tablet) 40 mg PO DAILY COUNT INCLUDES THE [facility] Last Admin: 05/03/21 09:28 Dose: 40 mg Documented by: SATURNINO Senna (Sennosides 8.6 Mg Tablet) 17.2 mg PO BEDTIME PRN PRN Reason: Constipation Sodium Chloride (0.9 % Sodium Chloride Flush 3 Ml Syringe) 3 ml IVFLUSH QSHIFT COUNT INCLUDES THE [facility] Last Admin: 05/03/21 09:27 Dose: 3 ml Documented by: SATURNINO Labs CBC & Chem 7: 04/28/21 05:30 05/03/21 05:30 Labs: Laboratory Results - last 24 hr 04/26/21 05/03/21 06:46 05:30 Anion Gap 14 Estim Creat Clear Calc 43.6 Estimated GFR 43 Random Glucose 72 Calcium 9.2 Cryoglobulin Negative Assessment and Plan (1) Elevated blood pressure reading: Status: Acute (2) Pleural effusion: Status: Acute (3) Septic embolism: Status: Acute (4) Infective endocarditis: Status: Acute (5) Cocaine use disorder, severe, dependence: Status: Acute (6) Opioid use disorder, severe, dependence: Status: Acute (7) Acute respiratory failure with hypoxia: Status: Acute (8) MELITON (acute kidney injury): Status: Acute Assessment and Plan: 25yo F with history of IV heroin + cocaine abuse, recent RUE cellulitis with open wound p/w SOB and admitted for severe sepsis found to be bacteremic with TV endocarditis complicated by cavitary septic emboli + bilateral loculated pleural effusions developed likely vasculitic drug rash + AIN due to cefazolin # MSSA + Streptococcus dysgalactiae bacteremia/infective endocarditis with 2.77 x 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/ multi focal pneumonia with cavitary septic emboli/ loculated bilateral pleural effusions - s/p 7d of vancomycin, then on cefazolin, then switched to daptomycin 04/25/21 due to rash - on d#[id number] of IV ABX after clearance of blood cultures 04/07 - RIJ CVC placed 04/16/21 removed on April 30 - PICC line placed on 04/30/20 - L chest tube placed 04/08/21 and underwent chemical decortication with tPA x3d, removed 04/15/21 - R chest tube placed 04/16/21 with small lateral PTX likely trapped lung, removed 04/21/21 # vasculitis rash - likely drug-induced due to cefazolin.? changed to daptomycin 04/25/21, rash is improving # elevated blood pressure ?? 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 continue prednisone 40 mg day 10/06, followed by 20 mg with taper 5 mg Q 5 days thereafter to zero ? Being followed closely by Nephrology patient refused renal biopsy. # hyperkalemia potassium 5.4? s/p Lokelma , repeat BMP normalized # HCV antibody positive - HCV viral load negative # anemia of chronic disease - total 9 units pRBCs transfused since 04/03/21 and Hb now stable # acute hypoxic resp failure - resolved # opioid use disorder/cocaine abuse - continue methadone 55 mg/d - CARE Team consulted - HBV immune, HIV negative, HCV antibody-positive and viral load-negative # VTE ppx - SCDs # dispo to rehab on Tuesday to [facility]. Quality Stroke Does the patient have a stroke diagnosis?: No VTE Prior VTE?: No VTE Risk Level:: Medical - moderate - high VTE Device Contraindication: Treatment Not Indicated VTE Drug Contraindication: N/A - Med Ordered
[2021-05-03 11:58] VITALS: BP 134/67; PULSE 62; RESP 18; TEMP 36.1; O2SAT 96
--- NOTE | 2021-05-03 15:05 | HO.ADDICTPRO ---
Subjective Subjective Date of Service: 05/03/21 Reason For Visit: PNA, endocarditis Interim History: Patient seen in follow up Methadone still at 55mg Patient scheduled to discharge to SNF tomorrow (05/04). Expressing some nerves around transfer and what to expect. Patient reflecting on medical stay and period in recovery--expressing desire to continue to work towards sustained recovery. Reviewed resources and supports in the community. Review of Systems Medical Review of Systems: unchanged Mental Status Exam Mental Status Exam Patient Appearance: Appropriate Patient Orientation: Person, Place, Time and Situation Patient Behavior: Appropriate and Talkative Mood Description: Happy and Relaxed Affect Description: Happy and Relaxed Speech Pattern: Clear Thought Process: Intact Thought Content: positive for Goal Oriented Judgement: Fair Diagnostics Vital Signs (24Hr): Vital Signs - 24 hr 05/02/21 16:00 05/02/21 19:25 05/02/21 22:52 Temperature 98.4 F 97.0 F 97.3 F Pulse Rate 78 56 51 Respiratory Rate 18 16 16 Blood Pressure 149/69 H 138/75 184/86 H Pulse Oximetry 98 95 97 05/03/21 03:49 05/03/21 08:00 05/03/21 11:58 Temperature 97.5 F 96.9 F 97.0 F Pulse Rate 66 63 62 Respiratory Rate 16 17 18 Blood Pressure 157/88 H 175/86 H 134/67 Pulse Oximetry 95 98 96 BMI result Body Mass Index 24.2 Labs Results: 04/28/21 05:30 05/03/21 05:30 Labs: Laboratory Results - last 48 hr 04/26/21 05/03/21 06:46 05:30 Sodium 138 Potassium 4.5 Chloride 100 Carbon Dioxide 29 Anion Gap 14 BUN 42 H Creatinine 1.51 H Estim Creat Clear Calc 43.6 Estimated GFR 43 Random Glucose 72 Calcium 9.2 Cryoglobulin Negative Imaging Radiology Impressions: ITS Impressions Chest X-Ray 03/31/21 22:26 IMPRESSION: Patchy bilateral airspace disease, most consistent with Covid pneumonia. Abdomen Ultrasound 04/01/21 09:54 IMPRESSION: Enlarged liver. Thickened edematous gallbladder wall. No gallstones are seen. Differential would include gallbladder wall changes related to liver disease, cholangitis, low albumin, CHF, acalculous cholecystitis and pancreatitis. If there is clinical concern of acalculous cholecystitis, HIDA scan would be recommended. Limited visualization of the pancreas. Small right pleural effusion. Pulmonary Perfusion Imaging 04/01/21 13:43 IMPRESSION: Intermediate probability of pulmonary embolism. These abnormalities may be due to pulmonary emboli or severe pneumonitis, or a combination of the two. If not contraindicated, CTA pulmonary embolism protocol would be helpful in differentiating these. Chest CTA 04/03/21 11:48 IMPRESSION: Very limited exam due to artifact from respiratory motion and extensive airspace disease and adenopathy. No large or central pulmonary embolism is seen. Evaluation of the segmental and subsegmental pulmonary arteries is markedly limited. Multiple bilateral pulmonary nodules, some of which appear cavitary and areas of airspace disease or consolidation in the lower lobes suggestive of pneumonia, left greater than right. Bilateral pleural effusions left greater than right. The left pleural effusion is partially loculated. Enlarged hilar and mediastinal lymph nodes. Chest CT appearance is somewhat atypical for Covid infection. Septic emboli, granulomatous or fungal infection, vasculitis, other causes of cavitary pneumonia such as Staphylococcus and Klebsiella pneumonia and neoplasm should be also considered. Prominent liver and spleen. Right axillary lymphadenopathy. VTE: neg Chest X-Ray 04/04/21 20:32 IMPRESSION: Worsening bilateral pulmonary opacities Small to moderate left effusion is minimally increased in size. Chest X-Ray 04/06/21 08:32 IMPRESSION: Worsened bilateral pleural effusions, loculated on the left. Persistent bilateral airspace disease and nodular opacities consistent with multifocal pneumonia. New right midlung opacity may represent fluid in the right major fissure or developing consolidative pneumonia. Chest CT 04/06/21 14:09 IMPRESSION: Worsened bilateral pleural effusions, left greater than right. The left pleural fluid is presumably loculated as it is seen tracking along the left lateral chest wall in a nondependent position. Innumerable nodular opacities and areas of nodular consolidation are seen, many of which are cavitary. These are increased in number from the prior study 04/03/2021. The previously seen abnormalities a roughly similar in size. The overall appearance, particularly with the cavitation, is more suggestive of septic emboli or other multifocal pneumonia, rather than viral COVID pneumonitis. In addition, there is worsening confluent consolidation at the left lung base and in the superior segment of the right lower lobe consistent with worsening focal consolidative pneumonia. Fleischner guidelines were followed. Chest Tube Insertion 04/08/21 16:36 IMPRESSION: Successful CT fluoroscopy-guided insertion of a 6.3-Persian left chest tube catheter with its tip along the left lateral chest wall connected to waterseal drainage and subsequently to be connected to -20 cm of wall suction. There were no immediate complications. The patient was sent to the floor in satisfactory condition same as received previously. Chest X-Ray 04/09/21 08:20 IMPRESSION: Left-sided chest tube in place with no significant change in left loculated pleural effusion. Small amount of air seen within the left pleural space, likely either iatrogenic from a small amount of air introduced with chest tube or related to trapped lung with some fluid being removed. Increase in size of partially loculated right pleural effusion. Diffuse bilateral regions of interstitial and airspace disease. Chest X-Ray 04/10/21 07:20 IMPRESSION: Interval decrease in left pleural effusion. New small left pneumothorax. Bilateral airspace disease and nodular opacities unchanged. Moderate size right pleural effusion. Findings will be communicated by the [place] work flow investigator utility bill complaints [place] [facility]. Chest X-Ray 04/11/21 06:42 IMPRESSION: No significant change from prior. Small left and moderate right pleural effusions. Patchy bilateral opacities. Chest CT 04/12/21 06:00 IMPRESSION: 1. Significant improvement of the prior left pleural effusion. Tiny left-sided hydropneumothorax remains. Pigtail catheter in place. 2. Similar appearance of the right-sided pleural effusion with loculation along the peripheral mid hemithorax. 3. Multifocal nodular opacities throughout the lungs with cavitation, showing some increase in size from prior. This is most concerning for septic emboli. Increased bilateral lower lung consolidation which could be in part atelectasis. Fleischner guidelines were followed. Chest X-Ray 04/13/21 06:15 IMPRESSION: No significant change from prior. Small left hydropneumothorax. Moderate right pleural effusion. Bilateral airspace opacities. Chest X-Ray 04/14/21 08:45 IMPRESSION: No change in bilateral airspace opacities and cavity formation seen throughout the lungs. Stable position of left chest tube. Tiny left lateral pneumothorax unchanged. Moderate right pleural effusion unchanged. Chest X-Ray 04/15/21 06:10 IMPRESSION: No significant change of small bilateral pleural effusions with patchy bilateral airspace opacities. Guidance Ultrasound 04/16/21 16:14 IMPRESSION: Successful fluoroscopy-guided right jugular triple-lumen catheter insertion without immediate complications. Patient tolerated procedure extremely well. Fluoroscopy time 0.1 minute. Images: 1. Dose area product: 31 cGy/cm2 Insertion Non-Tunneled Catheter 04/16/21 16:14 IMPRESSION: Successful fluoroscopy-guided right jugular triple-lumen catheter insertion without immediate complications. Patient tolerated procedure extremely well. Fluoroscopy time 0.1 minute. Images: 1. Dose area product: 31 cGy/cm2 Chest Tube Insertion 04/16/21 17:10 IMPRESSION: Successful CT guided insertion of right chest tube connected to wall suction via waterseal device. There were no immediate complications. DLP: 140 mGy/cm. Chest X-Ray 04/17/21 07:35 IMPRESSION: Small-bore right chest tube in place with pneumothorax with the appearance of trapped lung. There remains some right base density within the pleural space suggestive of some residual fluid. No significant change in appearance of diffuse bilateral interstitial and airspace disease. Right internal jugular central venous catheter tip within the mid to inferior right atrium. Chest X-Ray 04/18/21 06:30 IMPRESSION: No significant change compared to prior day's study. Chest X-Ray 04/19/21 06:35 IMPRESSION: No significant change in small right hydropneumothorax. Patchy bilateral airspace opacities are unchanged. Chest X-Ray 04/20/21 07:30 IMPRESSION: 1. Persistent small right hydropneumothorax with minimal interval decrease in air component. No significant change in right chest tube. 2. Bilateral patchy infiltrates without significant change. Chest CT 04/20/21 09:37 IMPRESSION: Complex study. Increased amount of right-sided pleural air but decreased amount of right-sided pleural fluid. Unchanged small left pleural effusion. However, previously visualized associated left pleural air has resolved. Redemonstration of multifocal cavitated airspace opacities, some of which stable, others decreased and a few increased in size. Recommend continued monitoring. Chest X-Ray 04/21/21 08:38 IMPRESSION: Right hydropneumothorax with decreased amount of air and stable amount of fluid. Unchanged small left pleural effusion. Multifocal airspace opacities some of which are cavitated are overall similar. Chest X-Ray 04/24/21 10:10 IMPRESSION: Bilateral patchy infiltrates demonstrating similar distribution with mild interval increase in the right midlung. Persistent small right pleural effusion. No overt pneumothorax. Renal Ultrasound 04/25/21 15:00 IMPRESSION: Increased renal cortical echotexture bilaterally is nonspecific, but is consistent with medical renal disease. No acute abnormality. PICC Line Insertion 04/30/21 10:15 IMPRESSION: Placement of right upper extremity PICC line as described. Medications Medications Current Medications Acetaminophen (Acetaminophen 325 Mg Tablet) 650 mg PO Q6H PRN PRN Reason: Fever Last Admin: 04/23/21 09:59 Dose: 650 mg Documented by: Benzonatate (Benzonatate 100 Mg Capsule) 100 mg PO TID PRN PRN Reason: Cough Last Admin: 04/17/21 16:09 Dose: 100 mg Documented by: Guaifenesin/Dextromethorphan (Guaifenesin Dm 200/20/10 Ml 10 Ml Syrup) 10 ml PO QID [facility] Last Admin: 05/03/21 14:05 Dose: Not Given Documented by: Hydrochlorothiazide (Hydrochlorothiazide 50 Mg Tablet) 50 mg PO DAILY [facility]; Protocol Hydroxyzine HCl (Hydroxyzine Hcl 25 Mg Tablet) 25 mg PO Q6H PRN PRN Reason: Anxiety Last Admin: 04/19/21 04:55 Dose: 25 mg Documented by: Daptomycin 440 mg/ Sodium (Chloride) 58.8 mls @ 100 mls/hr IV DAILY [facility] Last Infusion: 05/03/21 11:26 Dose: Infused Documented by: Melatonin (Melatonin 3 Mg Tablet) 6 mg PO BEDTIME PRN PRN Reason: Insomnia Last Admin: 04/17/21 20:01 Dose: 6 mg Documented by: Methadone HCl (Methadone Hcl 20 Mg/2 Ml Oral.Conc) 55 mg PO DAILY [facility] Last Admin: 05/03/21 09:28 Dose: 55 mg Documented by: Nicotine Polacrilex (Nicotine Polacrilex 2 Mg Gum) 2 mg BUCCAL Q2H PRN PRN Reason: Nicotine Cravings Last Admin: 04/04/21 05:47 Dose: 2 mg Documented by: Pharmacy Consult (Consult Rx Perform Med Rec) 1 each MISCELLANE ONCE PRN PRN Reason: Consult order Prednisone (Prednisone 20 Mg Tablet) 40 mg PO DAILY [facility] Last Admin: 05/03/21 09:28 Dose: 40 mg Documented by: Senna (Sennosides 8.6 Mg Tablet) 17.2 mg PO BEDTIME PRN PRN Reason: Constipation Sodium Chloride (0.9 % Sodium Chloride Flush 3 Ml Syringe) 3 ml IVFLUSH QSHIFT CORAZON Last Admin: 05/03/21 09:27 Dose: 3 ml Documented by: Allergies Allergies Allergy/AdvReac Type Severity Reaction Status Date / Time No Known Allergies Allergy Verified 05/12/20 05:11 Assessment & Plan Assessment & Plan (1) Opioid use disorder, severe, dependence: Status: Acute Code(s): F11.20 - Opioid dependence, uncomplicated Assessment and Plan: methadone at 55mg has already been accepted to [facility]--recovery field support engineer to ensure all paperwork is up to date at time of discharge. facility to transport for dosing I spent ___25___ minutes with the patient and/or on the patient floor today, greater than?50% of which was spent counseling/coordinating care.
[2021-05-03 15:42] VITALS: BP 162/87; PULSE 58; RESP 16; TEMP 36.1; O2SAT 98
--- NOTE | 2021-05-03 16:56 | PM.PNNEP ---
Subjective Subjective Date of Service: 05/03/21 Interval history: no acute events in renal recovery Physical Exam Vital Signs: Vital Signs: Last Vital Signs Temp 97.0 F 05/03/21 15:42 Pulse 58 05/03/21 15:42 Resp 16 05/03/21 15:42 BP 162/87 H 05/03/21 15:42 Pulse Ox 98 05/03/21 15:42 BMI result Body Mass Index 24.2 Const: Other: Disheveled General: no acute distress, lethargic and tired appearing Orientation/consciousness: lethargic Resp: Effort & Inspection: normal respiratory effort, normal respiratory pattern, no audible wheezes and no cough Cardio: Jugular venous distension: no JVD Rate: regular rate Rhythm: regular rhythm Heart sounds: S2 normal heart sound present, no gallops and no rubs GI: Palpation (GI): nontender Auscultation: normal bowel sounds Neuro: Other: diffusely weak Speech: No Abnormal speech present Motor exam (neuro): 5/5 motor strength present throughout Objective Data Labs CBC & Chem 7: 04/28/21 05:30 05/03/21 05:30 Labs: Laboratory Results - last 24 hr 04/26/21 05/03/21 06:46 05:30 Sodium 138 Potassium 4.5 Chloride 100 Carbon Dioxide 29 Anion Gap 14 BUN 42 H Creatinine 1.51 H Estim Creat Clear Calc 43.6 Estimated GFR 43 Random Glucose 72 Calcium 9.2 Cryoglobulin Negative Microbiology Microbiology Results: Microbiology 04/16/21 16:53 Pleural Fluid Gram Stain - Final 04/16/21 16:53 Pleural Fluid Routine Culture - Final No growth after 2 days 04/16/21 16:53 Pleural Fluid Anaerobic Culture - Final NO GROWTH AFTER 5 DAYS 04/08/21 16:00 Pleural Fluid Gram Stain - Final 04/08/21 16:00 Pleural Fluid Routine Culture - Final No growth after 2 days 04/08/21 16:00 Pleural Fluid Anaerobic Culture - Final NO GROWTH AFTER 5 DAYS 04/07/21 08:23 Blood - Venous Blood Culture - Final No growth after 5 days. 04/07/21 08:12 Blood - Venous Blood Culture - Final No growth after 5 days. 03/31/21 21:53 Blood - Venous Blood Culture - Final Staphylococcus aureus Strep dysgalactiae ssp equisim 03/31/21 21:53 Blood - Venous Blood Culture - Final Staphylococcus aureus Strep dysgalactiae ssp equisim 04/01/21 Unknown Urine clean catch - Urine fox top Urine Culture - Final Procedures Date of Service Date of Service: 05/03/21 Assessment & Plan Assessment and plan (1) Infective endocarditis: Status: Acute (2) Bacteremia: Status: Acute (3) MELITON (acute kidney injury): Status: Acute Assessment and Plan: 25yo F with history of IV heroin + cocaine abuse, recent RUE cellulitis with open wound,p/w SOB and admitted for severe sepsis found to be bacteremic with TV endocarditis complicated by cavitary septic emboli + bilateral loculated pleural effusions MELITON - 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 Can titrate to 50mg if needed - Lokelma 10g x1 (I ordered this) Time Spent With Patient Time: Total time spent is greater than 50% in coordination of care (as documented) at patient's floor/unit and/or counseling patient: Progress Note: Quality Stroke Does the patient have a stroke diagnosis?: No
--- NOTE | 2021-05-03 17:15 | PM.DS ---
DS: Providers Provider Date of Service: 05/04/21 Date of admission: 03/31/21 23:55 Primary care physician: Unknown Physician Consults: 03/31/21 23:50 Consult to Nephrology Routine Consulting Provider: Andrez Najera Reason for consultation: hyponatremia; MELITON 03/31/21 23:53 Addiction Medicine Routine Consulting Provider: Jinny Wright Reason for consultation: cociane/heroin abuse Consult to Infectious Diseases Routine Consulting Provider: Corie Penaloza Reason for consultation: hx IVDA; multifocal pna; Fore arm lesion-?celulitis 04/01/21 08:43 Consult to Hematology / Oncology Routine Consulting Provider: Kinsey Conde Reason for consultation: thrombocytopenia Has provider been notified: No 04/03/21 15:08 Consult to Cardiology Routine Consulting Provider: Noel Blackwood Reason for consultation: Tricuspid vegetation Has provider been notified: No 04/06/21 10:58 Consult to Pulmonology Routine Consulting Provider: [facility] Pulmonology Services Reason for consultation: loculated L pl effusion Consult to Thoracic Surgery Routine Consulting Provider: [facility] Thoracic Surgeons Reason for consultation: worsening L pl effu, locul 04/14/21 12:57 Consult to Psychiatry Routine Consulting Provider: Psych Covering Reason for consultation: competency eval Has provider been notified: No 04/24/21 17:03 Consult to Nephrology Routine Consulting Provider: [facility] Reason for consultation: MELITON 05/03/21 09:59 Consult to Infectious Diseases Routine Consulting Provider: Corie Penaloza Reason for consultation: bacteremia Has provider been notified: Yes DS: Diagnosis Discharge Diagnosis (1) Infective endocarditis: Status: Acute (2) Bacteremia: Status: Acute (3) MELITON (acute kidney injury): Status: Acute DS: Summary Hospital Course Hospital Course: History of presenting illness Chief Complaint: SOB ? 25-year-old female with a past medical history of right forearm cellulitis /open wound; history of IV drug abuse -abuses IV heroin and IV cocaine; presented to the hospital today with a chief complaint of shortness of breath.? Patient reported that over the past 1 week to 10 days she has not been feeling well; complains of subjective fevers and chills, shortness of breath which worsens on exertion; complains of pleuritic chest pain intermittent in nature nonradiating; complains of dry cough; had few episodes of diarrhea; denies any new skin rash; denies snorting IV drugs. Complains of poor intake. Denies any headaches or blurry visions.? Denies any neck pain, back pain, joint pains.? Denies any signs of bleeding.? Review of all other systems is negative except mentioned above ER course: Per ER team patient on presentation noted to be mildly tachypneic, wheezing, complaint of? pleuritic chest pain; EKG nonischemic; chest x-ray showed multifocal pneumonia /patchy opacities consistent COVID. Rapid COVID test was negative, RSV negative, influenza negative. On labs noted to have mild leukocytosis, thrombocytopenia; MELITON, mild transaminitis.? Also noted to have hyponatremia to 123.? Patient received 30 cc/kg normal saline, IV vancomycin and Zosyn; Patient was hypoxic to 87% on room air-placed on supplemental oxygen; Patient's blood pressure was 91/45-which improved to 107 over 41 after IV fluids.? Patient's D-dimer was elevated to 3263 - unable to do CT chest given MELITON.? Given empiric Lovenox at 1 milligram/kg in the ER.? Admitted for? 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, complicated by multi focal pneumonia with cavitary septic emboli + bilateral loculated pleural effusions, had L chest tube placed 04/08/21 and underwent chemical decortication with tPA x3d, left chest tube removed 04/15/21, underwent IR guided R chest tube placement on 04/16/21 with small lateral PTX likely trapped lung, right chest tube removed 04/21/21, subsequently doing better hypoxia resolved currently on room air finger oximetry 97 98%, patient initially treated with IV vancomycin for 7 days then transition to cefazolin but developed rash and acute renal injury, therefore switched to daptomycin on 04/25/2021 now on day of IV daptomycin, blood culture cleared on 04/07, patient underwent PICC line placement on April 30 antibiotic end date 05/19, recommend to check BMP and CPK Q weekly while on daptomycin. Patient developed rash on both extremities likely drug-induced due to cefazolin therefore antibiotic changed to daptomycin 04/25/21, rash is improving. Patient noted to have elevated blood pressure no prior history of hypertension therefore placed on hydrochlorothiazide 50 mg by mouth daily, follow blood pressure closely and check electrolytes q.weekly. 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 Recommend outpatient follow-up with Nephrology Dr. Gant in 7-10 days, follow BMP Q weekly. Patient noted to have low hematocrit likely has anemia of chronic disease received total 9 units of packed RBC hematocrit remains stable Opioid and cocaine use disorder, patient was followed closely by care team and placed on methadone 55 mg daily, patient is HIV negative, have hepatitis C antibody positive, and viral node negative, she is immune to hepatitis B. Time Spent with Patient Time attestation: Total time spent providing and/or coordinating discharge services: Discharge coordination time: Greater than 30 minutes Quality: Stroke Does the patient have a stroke diagnosis?: No Physical Exam Vital Signs: Vital Signs: Last Vital Signs Temp 97.0 F 05/03/21 15:42 Pulse 58 05/03/21 15:42 Resp 16 05/03/21 15:42 BP 162/87 H 05/03/21 15:42 Pulse Ox 98 05/03/21 15:42 BMI result Body Mass Index 24.2 Geeral:? Sitting comfortably, awake alert, in no acute distress Neck:? Supple Lungs: no wheeze, no rhonchi, no respiratory distress, good air movement Heart: regular rate and rhythm, no murmurs Abd: soft,?non-tender, non-distended Ext: no edema Skin: warm/well-perfused, palpable purpuric papules and patches on legs gradually fading, rash on bilateral arm improved. Neuro: alert and oriented x3, no focal findings Psych: appropriate affect DS: Data Data Completed and Pending Completed studies during hospitalization [Text1]: Pending at discharge 04/08/21 10:30 Cytology [PTH] Routine Labs on day of discharge: Laboratory Results - last 24 hr 04/26/21 05/03/21 06:46 05:30 Sodium 138 Potassium 4.5 Chloride 100 Carbon Dioxide 29 Anion Gap 14 BUN 42 H Creatinine 1.51 H Estim Creat Clear Calc 43.6 Estimated GFR 43 Random Glucose 72 Calcium 9.2 Cryoglobulin Negative Discharge Plan Discharge Patient Disposition: [facility] Discharge Diagnosis: MSSA / Streptococcus dysgalactiae bacteremia Infective endocarditis Acute kidney injury Anemia of chronic disease Acute hypoxic respiratory failure Opioid use disorder Multifocal pneumonia Bilateral pleural effusion Referrals: Physician,Gilson J [Primary Care Provider] - 1 Week Discharge Medications: New hydroxyzine HCl 25 mg Tablet 25 mg PO Q6H PRN (Reason: Anxiety) Qty: 30 RF: 0 nicotine (polacrilex) 2 mg Gum 2 mg buccal Q2H PRN (Reason: Nicotine Cravings) Qty: 30 RF: 0 dextromethorphan-guaifenesin 10-100 mg/5 mL Syrup 10 ml PO QID Qty: 240 RF: 0 hydrochlorothiazide 50 mg Tablet 50 mg PO DAILY Qty: 30 RF: 0 daptomycin 500 mg Recon Soln 440 mg IV DAILY Qty: 15 RF: 0 prednisone 10 mg tablet 10 mg PO DAILY Qty: 60 RF: 0 No Action No Known Home Meds RF: 0 Discharge Orders: Discharge Order (Routine); Ordered 05/04/21 Ordered By: Polo Holt Diet: advance to usual diet Activity on Discharge: As tolerated Stand Alone Forms: Patient Portal Discharge page Care Plan Goals: Continue IV daptomycin for bacteremia end date May 19, follow cpk/BMP Q weekly while on daptomycin Acute kidney injury improving follow BMP Q weekly and follow-up with Nephrology and take prednisone as ordered Take prednisone 40 mg by mouth daily for 7 more days Then take prednisone 20 mg for 5 days,than prednisone 15 mg for 5 days,than 10 mg for 5 days,than 5 mg for 5 days and then stop In regard to substance abuse continue methadone Health Concerns: Polysubstance abuse/tobacco use disorder/homeless need arrangement for [facility] upon discharge Plan of Treatment: Follow-up with primary care physician upon discharge from rehab Patient being discharged to rehab for less than 30 days Assessment: Per discharge summary
[2021-05-03 19:23] VITALS: BP 168/84; PULSE 58; RESP 17; TEMP 36.3; O2SAT 97
[2021-05-04 00:27] VITALS: BP 173/83; PULSE 52; RESP 16; TEMP 36.1; O2SAT 96
[2021-05-04] MEDS: 0.9 % Sodium Chloride Flush 3 ML SYRINGE IVFLUSH ×3 (00:42→17:12)
[2021-05-04 04:00] VITALS: BP 158/84; PULSE 51; RESP 20; TEMP 36.3; O2SAT 97
[2021-05-04 07:34] VITALS: BP 142/83; PULSE 65; RESP 16; TEMP 36.8; O2SAT 97
--- NOTE | 2021-05-04 08:19 | MHC.RECOVSUP ---
Recovery Support note: This production underwriter spoke with Kira at [facility] ([address] [place] [address], ) to confirm that this patient is all set to come in tomorrow as a new patient. Kira confirms that they have all of the information needed and that patient is good to come in tomorrow. Patient will get dosed today in the hospital and will be going to [facility] later today. [facility] will bring patient to the methadone clinic tomorrow for dosing. This production underwriter will fax over dosing history and last dose letter once patient is dosed. This production underwriter will provide patient with hard copy of last dose letter. This production underwriter available as needed.
[2021-05-04] MEDS: hydroCHLOROthiazide 50 MG TABLET PO (09:39)
[2021-05-04] MEDS: predniSONE 20 MG TABLET 40 MG PO (09:39)
[2021-05-04] MEDS: methADONE HCl 20 MG/2 ML ORAL.CONC 55 MG PO (09:40)
--- NOTE | 2021-05-04 10:03 | PM.PNNEP ---
Subjective Subjective Date of Service: 05/08/21 Interval history: no acute events in renal recovery Physical Exam Vital Signs: Vital Signs: Last Vital Signs Temp 98.2 F 05/04/21 07:34 Pulse 65 05/04/21 07:34 Resp 16 05/04/21 07:34 BP 142/83 H 05/04/21 07:34 Pulse Ox 97 05/04/21 07:34 BMI result Body Mass Index 24.2 Const: Other: Disheveled Objective Data Labs CBC & Chem 7: 04/28/21 05:30 05/03/21 05:30 Labs: Laboratory Results - last 24 hr 04/26/21 06:46 Cryoglobulin Cryocrit TNP Microbiology Microbiology Results: Microbiology 04/16/21 16:53 Pleural Fluid Gram Stain - Final 04/16/21 16:53 Pleural Fluid Routine Culture - Final No growth after 2 days 04/16/21 16:53 Pleural Fluid Anaerobic Culture - Final NO GROWTH AFTER 5 DAYS 04/08/21 16:00 Pleural Fluid Gram Stain - Final 04/08/21 16:00 Pleural Fluid Routine Culture - Final No growth after 2 days 04/08/21 16:00 Pleural Fluid Anaerobic Culture - Final NO GROWTH AFTER 5 DAYS 04/07/21 08:23 Blood - Venous Blood Culture - Final No growth after 5 days. 04/07/21 08:12 Blood - Venous Blood Culture - Final No growth after 5 days. 03/31/21 21:53 Blood - Venous Blood Culture - Final Staphylococcus aureus Strep dysgalactiae ssp equisim 03/31/21 21:53 Blood - Venous Blood Culture - Final Staphylococcus aureus Strep dysgalactiae ssp equisim 04/01/21 Unknown Urine clean catch - Urine fox top Urine Culture - Final Procedures Date of Service Date of Service: 05/04/21 Assessment & Plan Assessment and plan (1) Infective endocarditis: Status: Acute (2) Bacteremia: Status: Acute (3) MELITON (acute kidney injury): Status: Acute Assessment and Plan: 25yo F with history of IV heroin + cocaine abuse, recent RUE cellulitis with open wound,p/w SOB and admitted for severe sepsis found to be bacteremic with TV endocarditis complicated by cavitary septic emboli + bilateral loculated pleural effusions; doing well MELITON - possible Post infectious GN With Hep C and low compliments DDX includes MPGN vs others Possible AIN Would need kidney biopsy She refused Kidney biopsy Empirically started on Prednisone on 04/27/20 Cr is trending down Now with HTN and mild hyperkalemia Lokelma if K > 5.5 Watch BP ?? Time Spent With Patient Time: Total time spent is greater than 50% in coordination of care (as documented) at patient's floor/unit and/or counseling patient: Time with patient: 15 - 24 minutes Progress Note: Quality Stroke Does the patient have a stroke diagnosis?: No
[2021-05-04 11:27] VITALS: BP 123/70; PULSE 65; RESP 16; TEMP 36.4; O2SAT 96
--- NOTE | 2021-05-04 13:39 | MHC.CM.PN ---
Addendum entered by Paula Torres 05/04/21 14:49: [facility] AUTHORIZES A PASS TO [facility], [facility] IS UNABLE TO TRANSPORT UNTIL 11 PM TONIGHT. PLAN IS NOW TRANSPORT FOR [phone] FROM [facility]. Original Note: CALL TO [facility] [phone] ACCORDING TO INTAKE, PATIENT IS NOT YET IN THE SYSTEM BUT LONG SHE COMES TOMORROW WITH A LAST DOSE LETTER, SHE WILL BE SEEN AND STARTED ON HER NEW MEDICATION ASSISTED TREATMENT [facility] MADE AWARE. PLAN IS TO TRANSFER PATIENT VIA AMBULANCE ONCE NEGATIVE COVID RESULTS ARE IN
[2021-05-04 13:53] LABS: COVID-19 Test Negative (Negative)
--- NOTE | 2021-05-04 14:01 | P.DS_ITS ---
DS: Providers Provider Date of Service: 05/04/21 Date of admission: 03/31/21 23:55 Primary care physician: Unknown Physician Consults: 03/31/21 23:50 Consult to Nephrology Routine Consulting Provider: Andrez Najera Reason for consultation: hyponatremia; MELITON 03/31/21 23:53 Addiction Medicine Routine Consulting Provider: Jinny Wright Reason for consultation: cociane/heroin abuse Consult to Infectious Diseases Routine Consulting Provider: Corie Penaloza Reason for consultation: hx IVDA; multifocal pna; Fore arm lesion-?celulitis 04/01/21 08:43 Consult to Hematology / Oncology Routine Consulting Provider: Kinsey Conde Reason for consultation: thrombocytopenia Has provider been notified: No 04/03/21 15:08 Consult to Cardiology Routine Consulting Provider: Noel Blackwood Reason for consultation: Tricuspid vegetation Has provider been notified: No 04/06/21 10:58 Consult to Pulmonology Routine Consulting Provider: [facility] Reason for consultation: loculated L pl effusion Consult to Thoracic Surgery Routine Consulting Provider: [facility] Reason for consultation: worsening L pl effu, locul 04/14/21 12:57 Consult to Psychiatry Routine Consulting Provider: Psych Covering Reason for consultation: competency eval Has provider been notified: No 04/24/21 17:03 Consult to Nephrology Routine Consulting Provider: [facility] Reason for consultation: MELITON 05/03/21 09:59 Consult to Infectious Diseases Routine Consulting Provider: Corie Penaloza Reason for consultation: bacteremia Has provider been notified: Yes DS: Diagnosis Discharge Diagnosis (1) Infective endocarditis: Status: Acute (2) Bacteremia: Status: Acute (3) MELITON (acute kidney injury): Status: Acute DS: Summary Hospital Course Hospital Course: History of presenting illness Chief Complaint: SOB ? 25-year-old female with a past medical history of right forearm cellulitis /open wound; history of IV drug abuse -abuses IV heroin and IV cocaine; presented to the hospital today with a chief complaint of shortness of breath.? Patient reported that over the past 1 week to 10 days she has not been feeling well; complains of subjective fevers and chills, shortness of breath which worsens on exertion; complains of pleuritic chest pain intermittent in nature nonradiating; complains of dry cough; had few episodes of diarrhea; denies any new skin rash; denies snorting IV drugs. Complains of poor intake. Denies any headaches or blurry visions.? Denies any neck pain, back pain, joint pains.? Denies any signs of bleeding.? Review of all other systems is negative except mentioned above ER course: Per ER team patient on presentation noted to be mildly tachypneic, wheezing, complaint of? pleuritic chest pain; EKG nonischemic; chest x-ray showed multifocal pneumonia /patchy opacities consistent COVID. Rapid COVID test was negative, RSV negative, influenza negative. On labs noted to have mild leukocytosis, thrombocytopenia; MELITON, mild transaminitis.? Also noted to have hyponatremia to 123.? Patient received 30 cc/kg normal saline, IV vancomycin and Zosyn; Patient was hypoxic to 87% on room air-placed on supplemental oxygen; Patient's blood pressure was 91/45-which improved to 107 over 41 after IV fluids.? Patient's D-dimer was elevated to 3263 - unable to do CT chest given MELITON.? Given empiric Lovenox at 1 milligram/kg in the ER.? Admitted for? further management Hospital course 25 yo F with history of IV heroin + cocaine abuse, with rt. 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, complicated by multi focal pneumonia with cavitary septic emboli + bilateral loculated pleural effusions, had L chest tube placed 04/08/21 and underwent chemical decortication with tPA x3d, left chest tube removed 04/15/21, underwent IR guided R chest tube placement on 04/16/21 with small lateral PTX likely trapped lung, right chest tube removed 04/21/21, subsequently doing better hypoxia resolved currently on room air finger oximetry 97 98%, patient initially treated with IV vancomycin for 7 days then transition to cefazolin but developed rash and acute renal injury, therefore switched to daptomycin on 04/25/2021 now on day 27 of IV daptomycin, blood culture cleared on 04/07, patient underwent PICC line placement on April 30 antibiotic end date 05/19, recommend to check BMP and CPK Q weekly while on daptomycin. Patient developed rash on both extremities likely drug-induced due to cefazolin therefore antibiotic changed to daptomycin 04/25/21, rash is improving. Patient noted to have elevated blood pressure no prior history of hypertension therefore placed on hydrochlorothiazide 50 mg by mouth daily, follow blood pressure closely and check electrolytes q.weekly. 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 Recommend outpatient follow-up with Nephrology Dr. Gant in 7-10 days, follow BMP Q weekly. Patient noted to have low hematocrit likely has anemia of chronic disease received total 9 units of packed RBC hematocrit remains stable Opioid and cocaine use disorder, patient was followed closely by care team and placed on methadone 55 mg daily, patient is HIV negative, have hepatitis C antibody positive, and viral node negative, she is immune to hepatitis B. Time Spent with Patient Time attestation: Total time spent providing and/or coordinating discharge services: Discharge coordination time: Greater than 30 minutes Quality: Stroke Does the patient have a stroke diagnosis?: No Physical Exam Vital Signs: Vital Signs: Last Vital Signs Temp 97.5 F 05/04/21 11:27 Pulse 65 05/04/21 11:27 Resp 16 05/04/21 11:27 BP 123/70 05/04/21 11:27 Pulse Ox 96 05/04/21 11:27 BMI result Body Mass Index 24.2 General : Sitting comfortably, awake alert, in no acut e distress Neck:? Supple Lungs: no w heeze, no rhonchi, no respiratory di stress, good air m ovement Heart: reg ular rate and rhyt hm, no murmurs Abd : soft,?non-tender , non-distended Ex t: no lower extrem ity edema Right fo rearm dressing in place, wound is ge tting smaller stil l beefy red with s ome granulation ti ssue Skin: warm/we ll-perfused, palpa ble purpuric papul es and patches on legs gradually fad ing, rash on bilat eral arm resolved. Neuro: alert and oriented x3, no fo tomi findings Psych : appropriate affe ct DS: Data Data Completed and Pending Completed studies during hospitalization [Text1]: Pending at discharge 04/08/21 10:30 Cytology [PTH] Routine Labs on day of discharge: Laboratory Results - last 24 hr 04/26/21 05/04/21 06:46 13:25 Cryoglobulin Cryocrit TNP COVID-19 ([facility]) Negative COVID-19 Clin Com See Note Discharge Plan Discharge Patient Disposition: er SNF Discharge Diagnosis: MSSA / Streptococcus dysgalactiae bacteremia Infective endocarditis Acute kidney injury Anemia of chronic disease Acute hypoxic respiratory failure Opioid use disorder Multifocal pneumonia Bilateral pleural effusion Referrals: [facility] [Outside] - 1 Week Physician,Unknown J [Primary Care Provider] - 1 Week Discharge Medications: New nicotine (polacrilex) 2 mg Gum 2 mg buccal Q2H PRN (Reason: Nicotine Cravings) Qty: 30 RF: 0 hydrochlorothiazide 50 mg Tablet 50 mg PO DAILY Qty: 30 RF: 0 dextromethorphan-guaifenesin 10-100 mg/5 mL Syrup 10 ml PO QID Qty: 240 RF: 0 hydroxyzine HCl 25 mg Tablet 25 mg PO Q6H PRN (Reason: Anxiety) Qty: 30 RF: 0 daptomycin 500 mg Recon Soln 440 mg IV DAILY Qty: 15 RF: 0 prednisone 10 mg tablet 10 mg PO DAILY Qty: 60 RF: 0 Discharge Orders: Discharge Order (Routine); Ordered 05/04/21 Ordered By: Polo Holt Diet: advance to usual diet Activity on Discharge: As tolerated Stand Alone Forms: Patient Portal Discharge page Care Plan Goals: Continue IV daptomycin for bacteremia end date May 19, follow cpk/BMP Q weekly while on daptomycin Acute kidney injury improving follow BMP Q weekly and follow-up with Nephrology and take prednisone as ordered Take prednisone 40 mg by mouth daily for 7 more days Then take prednisone 20 mg for 5 days,than prednisone 15 mg for 5 days,than 10 mg for 5 days,than prednisone 5 mg for 5 days and then stop In regard to substance abuse continue methadone Right fore arm wound continue Puracol dressing and cover with dry gauze Health Concerns: Polysubstance abuse/tobacco use disorder/homeless need arrangement for nursing home upon discharge Plan of Treatment: Follow-up with primary care physician upon discharge from rehab Patient being discharged to rehab for less than 30 days Assessment: Per discharge summary Discharge Date/Time: 05/04/21 21:00
--- NOTE | 2021-05-04 22:04 | PC.NURSE ---
Pt left at 2030 with 2EMTs on a stretcher, pt is alert and oriented and in good spirit, report given to EMT
== END 2021-05-04 21:00 | disposition skilled nursing facility (03) | DRG 720 ==
LOC: HO.ED 23:30 → HO.EDOVER 04-01 → HO.S3 04-01 16:40
PROVIDERS: Family Medicine; Hospitalist; Internal Medicine Hypertension Specialist; Internal Medicine Nephrology; Nurse Practitioner Family; Physician Assistant; Radiology Diagnostic Radiology; Admitting Provider Hospitalist; Emergency Provider Emergency Medicine Emergency Medical Services; Visit Provider Hospitalist
PROC: 0W9B30Z Drainage of Left Pleural Cavity with Drainage Device, Percutaneous Approach (ICD-10-PCS; CPT 32551; principal; 2021-04-08 13:30)
PROC: 02H633Z Insertion of Infusion Device into Right Atrium, Percutaneous Approach (ICD-10-PCS; CPT 32551; principal; 2021-04-16 14:00)
DX: A41.01 Sepsis due to Methicillin susceptible Staphylococcus aureus (principal); J96.01 Acute respiratory failure with hypoxia; D65 Disseminated intravascular coagulation [defibrination syndrome]; I33.0 Acute and subacute infective endocarditis; I76 Septic arterial embolism; J91.8 Pleural effusion in other conditions classified elsewhere; E22.2 Syndrome of inappropriate secretion of antidiuretic hormone; J18.9 Pneumonia, unspecified organism; E46 Unspecified protein-calorie malnutrition; D68.9 Coagulation defect, unspecified; N17.0 Acute kidney failure with tubular necrosis; F11.20 Opioid dependence, uncomplicated; F14.20 Cocaine dependence, uncomplicated; L98.9 Disorder of the skin and subcutaneous tissue, unspecified; R65.20 Severe sepsis without septic shock; R04.2 Hemoptysis; L03.113 Cellulitis of right upper limb; L27.0 Generalized skin eruption due to drugs and medicaments taken internally; T36.1X5A Adverse effect of cephalosporins and other beta-lactam antibiotics, initial encounter; N39.0 Urinary tract infection, site not specified; D63.8 Anemia in other chronic diseases classified elsewhere; E87.5 Hyperkalemia; I10 Essential (primary) hypertension; I77.6 Arteritis, unspecified; F17.210 Nicotine dependence, cigarettes, uncomplicated; Z71.6 Tobacco abuse counseling; Z59.02 Unsheltered homelessness; B19.20 Unspecified viral hepatitis C without hepatic coma; Z20.822 Contact with and (suspected) exposure to COVID-19; Z79.899 Other long term (current) drug therapy; Z68.24 Body mass index [BMI] 24.0-24.9, adult
CPT/HCPCS: 0241U; 32551; 36415; 36556; 36573; 71045; 71046; 71250; 71275; 76705; 76775; 76937; 78580; 80048; 80051; 80053; 80076; 80202; 80307; 81001; 81025; 82042; 82077; 82150; 82436; 82550; 82565; 82595; 82728; 82945; 83010; 83520; 83540; 83605; 83615; 83735; 83880; 83930; 83935; 83986; 84156; 84157; 84295; 84300; 84484; 84520; 85007; 85025; 85027; 85379; 85384; 85610; 85652; 85730; 86021; 86140; 86160; 86704; 86706; 86709; 86803; 86850; 86900; 86901; 86923; 87040; 87071; 87073; 87077; 87086; 87147; 87186; 87205; 87340; 87389; 87522; 87635; 88112; 88305; 89051; 89190; 93005; 93306; 94640; 96361; 96365; 96372; 96375; 99152; 99153; 99284; 99291; A9540; C1729; C1751; J0690; J0696; J0878; J1650; J2270; J2543; J2997; J3370; J8540; P9016; P9047; Q9967

== ENCOUNTER 2021-06-16 22:10 | Emergency (ER) | payer OTHER, SELFPAY ==
--- NOTE | ~2021-06-16 | XR_ITS ---
EXAMINATION: XR FOREARM, RIGHT CLINICAL INFORMATION: Chronic wound. Question osteomyelitis. COMPARISON: None TECHNIQUE: AP and lateral views of the right forearm were obtained. FINDINGS: No fracture or cortical disruption. No osseous erosion. There is diffuse soft tissue swelling with soft tissue irregularity along the radial aspect of the midforearm. No underlying bony abnormality. Appropriate alignment of the wrist and elbow. XR/XR forearm RT 2V IMPRESSION: Irregular appearance of the soft tissues along the radial aspect of the mid forearm. No underlying osseous abnormality.
[2021-06-16 22:19] VITALS: BP 116/84; BP 121/73; PULSE 103; PULSE 117; RESP 17; TEMP 36.8; O2SAT 96; O2SAT 98; BMI 26.2
[2021-06-16 22:56] LABS: MANUAL DIFF FLAG NO
[2021-06-16 22:57] LABS: Basophils Percent Auto 0.4 % (0-2); Eosinophils Absolute Auto 0.2 X10*3/uL (0.0-0.4); Eosinophils Percent Auto 1.8 % (0-4); Hematocrit 33.3 % (37.0-47.0); Hemoglobin 10.5 g/dl (12.0-16.0); Imm Gran Abs Auto 0.08 X10*3/uL (0.00-0.03); Imm Gran Pct Auto 0.8 % (0.0-0.4); Lymphocytes Absolute Auto 3.4 X10*3/uL (1.2-4.9); Lymphocytes Percent Auto 32.3 % (20-40); Mean Corpuscular HGB Conc 31.5 g/dl (31.0-35.0); Mean Corpuscular Hemoglobin 27.6 pg (27.0-33.0); Mean Corpuscular Volume 87.4 fL (80.0-98.0); Mean Platelet Volume 7.9 fL (9.4-12.3); Monocytes Absolute Auto 0.8 X10*3/uL (0.1-1.2); Monocytes Percent Auto 7.8 % (2-11); Neutrophils Percent Auto 56.9 % (45-73); Platelet Count 352 X10*3/uL (160-400); Red Blood Count 3.81 X10*6/uL (4.20-5.50); Red Cell Distribution Width 13.8 % (11.0-16.0); White Blood Count 10.6 X10*3/uL (4.8-10.8)
[2021-06-16 23:06] LABS: Lactic Acid 1.4 mmol/L (0.5-2.0)
[2021-06-16 23:12] LABS: Alanine Aminotransferase < 6 U/L (0-31); Albumin Level 3.5 g/dL (3.5-5.0); Alkaline Phosphatase 88 U/L (39-117); Anion Gap 14 (12-20); Aspartate Amino Transferase 12 U/L (5-31); Bilirubin Total 0.4 mg/dL (0.0-1.0); Blood Urea Nitrogen 5 mg/dL (9-16); Calcium 9.5 mg/dL (8.4-10.2); Carbon Dioxide 22 mmol/L (22-29); Chloride 104 mmol/L (96-108); Creatinine Clr Calc Pharmacy 74.3; Estimated Glomerular Filt Rate > 60; Glucose Random 75 mg/dL (60-115); Potassium 3.6 mmol/L (3.3-5.1); Sodium 136 mmol/L (135-145); Total Protein 7.4 g/dL (6.5-8.0)
--- NOTE | 2021-06-17 00:23 | ED_ITS ---
HPI - General Adult General Chief complaint: Skin/Abscess/Foreign Body Stated complaint: Rt Arm Avulsion Time Seen by Provider: 06/16/21 22:23 Source: patient Mode of arrival: ambulatory Limitations: no limitations History of Present Illness HPI narrative: 25-year-old female IV drug use it presents to the ED for evaluation of chronic right forearm wound. Patient under arrest by police the police saw the wound a nd brought to the ED for evaluation. Patient states no fever or chills. Patient denies any recent IV drug injection into wound. Related Data Previous Rx's Medication Instructions Recorded daptomycin 500 mg intravenous 440 mg IV DAILY #15 ea 05/03/21 solution dextromethorphan-guaifenesin 10 10 ml PO QID #240 ml 05/03/21 mg-100 mg/5 mL oral syrup hydrochlorothiazide 50 mg tablet 50 mg PO DAILY #30 tab 05/03/21 hydroxyzine HCl 25 mg tablet 25 mg PO Q6H PRN #30 tab 05/03/21 nicotine (polacrilex) 2 mg gum 2 mg BUCCAL Q2H PRN #30 ea 05/03/21 prednisone 10 mg tablet 10 mg PO DAILY #60 tab 05/04/21 cephalexin 500 mg capsule 500 mg PO QID 7 Days #28 cap 06/17/21 doxycycline hyclate 100 mg capsule 100 mg PO BID 7 Days #14 cap 06/17/21 Allergies Allergy/AdvReac Type Severity Reaction Status Date / Time No Known Allergies Allergy Verified 06/16/21 22:25 Review of Systems Review of Systems: Right forearm wound Yes all other systems are reviewed and are negative PMFSH Past Medical History Medical History (Updated 06/17/21 @ 00:31 by STEVEN Degroot) Bacteremia Substance abuse Social History Social History Household Members: None Housing: Other Housing Other:: homeless but states staying with friends Do you presently have visiting nurse or other home services: No Unable to assess alcohol history related to: Unable to respond and Refusing to respond Alcohol intake: never Patient Tobacco Use Status: Current everyday Tobacco user Substance Use Type: Crack/Cocaine, Heroin, IV Drugs and Methamphetamine Advance Directives: No Advance Directives Information Provided: No service: No Current occupational status: unemployed Physical Exam ED Vital Signs: Vital Signs - 24 hr 06/16/21 22:19 Temperature 98.3 F Pulse Rate 103 H Respiratory Rate 17 Blood Pressure 121/73 Pulse Oximetry 96 BMI result Body Mass Index 26.2 Const General: cooperative, healthy appearing, comfortable, no acute distress, well developed, alert and awake Orientation/consciousness: patient oriented x3 [facility] Head: Yes normal to inspection, Yes No palpable skull fracture present, Yes normocephalic and Yes atraumatic Eyes General: appearance normal, both eyes and all related structures Neck Neck: Yes normal visual inspection, Yes full ROM, Yes no lymphadenopathy, Yes no meningeal signs, Yes trachea midline, Yes supple, No anterior neck swelling and No tender Chest Chest palpation & inspection: normal inspection of the chest and normal palpation of entire chest wall Resp Effort & Inspection: normal respiratory effort and able to speak in complete sentences Auscultation: clear to auscultation bilaterally Cardio Jugular venous distension: no JVD Heart sounds: S1 normal heart sound present and S2 normal heart sound present GI Inspection: Yes normal to inspection and No abdominal wall ecchymosis Palpation (GI): Soft to palpation, not firm, nontender, no guarding and not rigid General: No CVA tenderness and Yes no CVA tenderness Back/Spine/Pelvis Back: no CVA tenderness, No CVA tenderness and No back tenderness Skin Other: Chronic wound of right foreamr Neuro General: patient oriented x3, gait normal, no meningeal signs and CN's II-XI intact bilaterally Cranial nerves: Yes CN's II-XII intact bilaterally Extrem Other: Chronic wound with slight erythema around wound. Vascular/motor/neuro exam intact General: Yes normal to inspection and Yes full ROM Psych Appearance: grossly normal, well kempt and not disheveled Course Course Course Narrative: Labs and upper extremity x-ray will be ordered Reevaluation(s) Reevaluation #1: X-ray negative for osteomyelitis. labs are normal. Patient will be discharged with p.o. antibiotics and go back on the police custody. Patient given wound clinic information and surgeon for follow-up for wound care and possible debridement. Case and forearm was evaluated with Dr. Juarez and he agrees with plan. Time: 00:29 Medical Decision Making MDM Narrative Medical decision making narrative: Chronic wound. Lab Data Result diagrams: 06/16/21 22:48 06/16/21 22:48 Labs: Lab Results 06/16/21 06/16/21 06/16/21 Range/Units 22:48 22:48 22:48 WBC 10.6 (4.8-10.8) X10*3/uL RBC 3.81 L (4.20-5.50) X10*6/uL Hgb 10.5 L (12.0-16.0) g/dl Hct 33.3 L (37.0-47.0) % MCV 87.4 (80.0-98.0) fL MCH 27.6 (27.0-33.0) pg MCHC 31.5 (31.0-35.0) g/dl RDW 13.8 (11.0-16.0) % Plt Count 352 D (160-400) X10*3/uL MPV 7.9 L (9.4-12.3) fL Immature Gran % (Auto) 0.8 H (0.0-0.4) % Neut % (Auto) 56.9 (45-73) % Lymph % (Auto) 32.3 (20-40) % [place] % (Auto) 7.8 (2-11) % Eos % (Auto) 1.8 (0-4) % Baso % (Auto) 0.4 (0-2) % Lymph # (Auto) 3.4 (1.2-4.9) X10*3/uL [place] # (Auto) 0.8 (0.1-1.2) X10*3/uL Eos # (Auto) 0.2 (0.0-0.4) X10*3/uL Baso # (Auto) 0.0 (0.0-0.2) X10*3/uL Abs Immat Gran (auto) 0.08 H (0.00-0.03) X10*3/uL Absolute Neuts (auto) 6.0 (2.0-8.3) x10*3/uL Absolute Nucleated RBC 0.000 (0.0-0.012) X10*3/uL Nucleated RBC % (auto) 0.0 (0.0-0.2) /100WBC Sodium 136 (135-145) mmol/L Potassium 3.6 (3.3-5.1) mmol/L Chloride 104 (96-108) mmol/L Carbon Dioxide 22 (22-29) mmol/L Anion Gap 14 (12-20) BUN 5 L D (9-16) mg/dL Creatinine 0.92 (0.5-1.4) mg/dL Estim Creat Clear Calc 74.3 Estimated GFR > 60 Random Glucose 75 (60-115) mg/dL Lactic Acid 1.4 (0.5-2.0) mmol/L Calcium 9.5 (8.4-10.2) mg/dL Total Bilirubin 0.4 (0.0-1.0) mg/dL AST 12 (5-31) U/L ALT < 6 (0-31) U/L Alkaline Phosphatase 88 (39-117) U/L Total Protein 7.4 (6.5-8.0) g/dL Albumin 3.5 D (3.5-5.0) g/dL Discharge Plan Discharge Clinical Impression: Cellulitis Patient Disposition: Home, Self-Care Instructions: Cellulitis (DC), Chronic Wounds (ED) Additional Instructions: You will be discharged with oral antibiotics. You will need follow-up with Outpatient [facility]ound [facility] an outpatient surgery clinic. Return to the ED for worsening presentation/discharge/redness, swelling, fever, chills, or any other concerning symptoms. Prescriptions: New cephalexin 500 mg capsule 500 mg PO QID 7 Days Qty: 28 0RF doxycycline hyclate 100 mg capsule 100 mg PO BID 7 Days Qty: 14 0RF No Action nicotine (polacrilex) 2 mg Gum 2 mg buccal Q2H PRN (Reason: Nicotine Cravings) Qty: 30 0RF hydrochlorothiazide 50 mg Tablet 50 mg PO DAILY Qty: 30 0RF Protocol: Hold for SBP< HOLD for SBP < : 90 dextromethorphan-guaifenesin 10-100 mg/5 mL Syrup 10 ml PO QID Qty: 240 0RF hydroxyzine HCl 25 mg Tablet 25 mg PO Q6H PRN (Reason: Anxiety) Qty: 30 0RF daptomycin 500 mg Recon Soln 440 mg IV DAILY Qty: 15 0RF prednisone 10 mg tablet 10 mg PO DAILY Qty: 60 0RF Rx Instructions: Take prednisone 40 mg by mouth daily for 7 days then Take prednisone 20 mg daily for 5 days, followed by 15 mg by mouth daily for 5 days, then 10 mg daily for 5 days, then 5 mg by mouth daily for 5 more days and then stop Referrals: [facility] [Outside] - 2 days (Chronic wound of right forearm. wound care) Burak Chowdhury MD [Physician] - 2 days (Chronic wound of right forearm. may need debridement. ) Print Language: Kazakh
[2021-06-17 00:38] VITALS: BP 124/79; PULSE 102; RESP 19; O2SAT 97
== END 2021-06-17 00:47 | disposition home or self-care (01) ==
PROVIDERS: Physician Assistant; Emergency Provider Student in an Organized Health Care Education/Training Program
DX: L03.113 Cellulitis of right upper limb (principal); S51.801A Unspecified open wound of right forearm, initial encounter; X58.XXXA Exposure to other specified factors, initial encounter; F19.10 Other psychoactive substance abuse, uncomplicated; F11.20 Opioid dependence, uncomplicated; F14.20 Cocaine dependence, uncomplicated; F17.200 Nicotine dependence, unspecified, uncomplicated; Y93.9 Activity, unspecified; Y92.9 Unspecified place or not applicable; Y99.9 Unspecified external cause status
CPT/HCPCS: 36415; 73090; 80053; 83605; 85025; 99283

== ENCOUNTER 2021-09-19 16:51 | Emergency (ER) | payer OTHER, SELFPAY | END 2021-09-19 18:44 | disposition left against medical advice (07) | PROVIDERS: Emergency Provider Emergency Medicine | DX: M25.531 Pain in right wrist (principal) ==

== ENCOUNTER 2021-12-21 22:09 | Inpatient (IN) | payer OTHER, SELFPAY ==
--- NOTE | ~2021-12-21 | US_ITS ---
EXAMINATION: US ABDOMEN LIMITED CLINICAL INFORMATION: Right upper quadrant pain and elevated LFTs. COMPARISON: Ultrasound abdomen 04/01/2021, CT chest 04/06/2021 TECHNIQUE: Real-time imaging of the right upper quadrant abdominal viscera. FINDINGS: PANCREAS: The pancreas appears unremarkable, without masses or ductal dilatation, with the exception of the tail which is obscured by bowel gas. LIVER: The liver is enlarged measuring almost 23 cm in greatest length and demonstrates slightly increased echogenicity suggesting hepatic steatosis. The liver contour is normal. No focal hepatic lesion. There is no intrahepatic biliary duct dilatation seen. GALLBLADDER: There is some nonmobile echogenic foci along the wall of the gallbladder which could represent gallbladder wall calcification or a polyp or possibly nonmobile stones. The gallbladder is physiologically distended without evidence of pericholecystic inflammatory change. COMMON BILE DUCT: Normal in caliber measuring 0.4 cm in diameter. RIGHT KIDNEY: Normal. No hydronephrosis. No renal calculi or focal parenchymal lesions. The kidney measures 11.6 cm in maximum dimension. FREE FLUID: Tiny bit of free intraperitoneal fluid is present in Morison's pouch. US/US abdomen limited IMPRESSION: 1. Enlarged slightly echogenic liver suggesting hepatic steatosis. At the time of the prior chest CT from 2020, the attenuation of the liver with greater than spleen not suggestive of hepatic steatosis. 2. Gallbladder wall calcifications as described above.
--- NOTE | ~2021-12-21 | CT_ITS ---
EXAMINATION: CT WRIST WITHOUT CONTRAST, RIGHT CLINICAL INFORMATION: Infected radial wound. IV drug use. COMPARISON: Right forearm radiographs dated 06/16/2021. TECHNIQUE: Contiguous axial CT images of the right wrist were obtained without contrast. Multiplanar reformats were provided and reviewed. This CT examination was performed using dose optimization techniques as appropriate, variously including the following: *Automated exposure control *Adjustment of mA and/or kV according to patient size (this includes techniques or standardized protocols for targeted exams where dose is matched to indication/reason for exam; i.e. extremities or head) *Use of iterative reconstruction technique DLP: 83 mGy-cm FINDINGS: Redemonstration of chronic soft tissue irregularity/ulceration along the radial aspect of the distal forearm with skin thickening and subcutaneous stranding, consistent with chronic cellulitis. No soft tissue emphysema. No organized fluid collection or abscess formation. No adjacent osseous abnormality. No periosteal reaction or osseous erosion to suggest acute osteomyelitis. No acute fracture or dislocation. Normal carpal alignment. No concerning lytic or blastic osseous lesion. Grossly intact flexor and extensor tendons. Evaluation limited on CT imaging. CT/CT wrist RT wo IV con IMPRESSION: Findings consistent with chronic cellulitis and ulceration along the radial aspect of the distal forearm. No evidence of abscess formation or adjacent osteomyelitis.
--- NOTE | ~2021-12-21 | XR_ITS ---
EXAMINATION: XR CHEST CLINICAL INFORMATION: Chest pain and shortness of breath COMPARISON: 04/24/2012 TECHNIQUE: Frontal view of the chest was obtained. FINDINGS: Trace right pleural effusion. Bilateral lower lung streaky opacities, presumably atelectasis. No discrete consolidation. No pneumothorax. Normal heart size and pulmonary vascularity. No acute osseous abnormalities. XR/XR chest 1V IMPRESSION: Trace right pleural effusion Low lung volumes and bibasilar subsegmental atelectasis.
[2021-12-21 22:16] VITALS: BP 107/68; PULSE 124; O2SAT 96
[2021-12-21 22:32] VITALS: BP 112/71; PULSE 114; RESP 18; TEMP 37.7; O2SAT 94; BMI 27.2
--- NOTE | 2021-12-21 22:38 | ECG_ITS ---
Test Reason : RO SEPSIS Blood Pressure : / mmHG Vent. Rate : 118 BPM Atrial Rate : 118 BPM P-R Int : 126 ms QRS Dur : 084 ms QT Int : 306 ms P-R-T Axes : 052 097 035 degrees QTc Int : 428 ms Sinus tachycardia with Premature supraventricular complexes Rightward axis Low voltage QRS Borderline ECG When compared with ECG of 31-MAR-2021 22:08, Premature supraventricular complexes are now Present QRS axis Shifted right Referred By: Aneudy Butler Electronically Signed By:ELVIA NOLAN
[2021-12-21 23:35] LABS: COVID-19 Test Negative (Negative)
--- NOTE | 2021-12-22 01:12 | ED_ITS ---
HPI - General Adult General Chief complaint: Skin/Abscess/Foreign Body Stated complaint: infection Time Seen by Provider: 12/21/21 23:50 Source: patient Limitations: no limitations History of Present Illness HPI narrative: This is a 26-year-old female with a history of substance abuse, infective endocarditis at the end of last year, right arm wound from injecting which has recently been getting worse, who complains of general malaise for several days, feeling like she has endocarditis again with body aches, fever, chills, feeling weak. Patient admits cocaine use denies opiate use. She does feel short of breath, has some chest discomfort. She has had nausea, denies vomiting or diarrhea. She notes that her right arm wound had been healing but the last several days has had some discharge and grown in size Related Data Previous Rx's Medication Instructions Recorded daptomycin 500 mg intravenous 440 mg IV DAILY #15 ea 05/03/21 solution dextromethorphan-guaifenesin 10 10 ml PO QID #240 mL 05/03/21 mg-100 mg/5 mL oral syrup hydrochlorothiazide 50 mg tablet 50 mg PO DAILY #30 tabs 05/03/21 hydroxyzine HCl 25 mg tablet 25 mg PO Q6H PRN Anxiety #30 tabs 05/03/21 nicotine (polacrilex) 2 mg gum 2 mg buccal Q2H PRN Nicotine 05/03/21 Cravings #30 ea prednisone 10 mg tablet 10 mg PO DAILY #60 tabs 05/04/21 cephalexin 500 mg capsule 500 mg PO QID 7 days #28 caps 06/17/21 doxycycline hyclate 100 mg capsule 100 mg PO BID 7 days #14 caps 06/17/21 Allergies Allergy/AdvReac Type Severity Reaction Status Date / Time No Known Allergies Allergy Verified 06/16/21 22:25 Review of Systems Review of Systems: Yes all other systems are reviewed and are negative Constitutional: Constitutional: Reports as per HPI, Reports fever(s), Reports headache(s) and Reports malaise Eyes: Eyes: Reports as per HPI and Reports no additional eye complaints ENT: Reports system reviewed and no additional complaints, except as documented, Reports as per HPI, Reports headache(s), Denies nasal congestion, Denies nasal discharge and Denies sore throat Cardiovascular: Cardiovascular: Reports as per HPI, Reports chest pain and Reports dyspnea Respiratory: Respiratory: Reports as per HPI, Denies cough and Reports dyspnea Gastrointestinal: Gastrointestinal: Reports as per HPI, Denies abdominal pain, Denies diarrhea, Reports nausea and Denies vomiting Genitourinary: Genitourinary: Reports as per HPI, Denies hematuria, Denies urinary frequency and Denies dysuria Musculoskeletal: Musculoskeletal: Reports no additional musculoskeletal complaints and Denies numbness Integumentary/Breasts: Skin/Breast: Reports as per HPI, Denies rash and Reports other (Wound right forearm) Neurologic: Reports as per HPI, Reports headache(s), Denies focal weakness and Denies numbness Psychiatric: Psychiatric: Reports no additional psychiatric complaints and Reports as per HPI Endocrine: Endocrine: Reports no additional endocrine complaints and Reports as per HPI Hematologic/Lymphatic: Hematologic/Lymphatic: Reports no additional hematologic/lymphatic complaints, Reports as per HPI and Reports other (No pe ripheral edema) [facility] Past Medical History Medical History (Updated 12/22/21 @ 05:15 by Aneudy Butler MD) Bacteremia Substance abuse Social History Social History Household Members: None Housing: Other Housing Other:: homeless but states staying with friends Do you presently have visiting nurse or other home services: No Unable to assess alcohol history related to: Unable to respond and Refusing to respond Alcohol intake: current Alcohol intake frequency: 3 or more drinks per day Patient Tobacco Use Status: Current everyday Tobacco user Use of substances other than those prescribed or required for medical reasons: Yes Substance Use Type: Crack/Cocaine and Heroin Substance Use Type Other:: fetanyl Substance Use Frequency: Daily Advance Directives: No Advance Directives Information Provided: No Patient : No service: No Current occupational status: unemployed Physical Exam ED Vital Signs: Vital Signs - 24 hr 12/21/21 22:32 12/22/21 01:18 Temperature 99.8 F 101.1 F H Pulse Rate 114 H 110 H Respiratory Rate 18 18 Blood Pressure 112/71 104/74 Pulse Oximetry 94 94 Oxygen Delivery Method Room Air Room Air BMI result Body Mass Index 27.2 Const General: no acute distress Orientation/consciousness: patient oriented x3 [facility] Head: Yes normal to inspection General nose exam: Normal external nose present Mouth: moist mucous membranes Throat: Yes posterior oropharynx normal, Yes tonsils normal and Yes uvula midline Eyes Eyelids: Yes eyelids normal Conjunctivae: conjunctivae normal Pupils: Equal, round and reactive pupils present Neck Neck: Yes supple Resp Effort & Inspection: normal respiratory effort Auscultation: clear to auscultation bilaterally Cardio Rate: tachycardic Rhythm: regular rhythm Heart sounds: S1 normal heart sound present, S2 normal heart sound present, no gallops, no murmurs and no rubs GI Inspection: No distended Palpation (GI): Soft to palpation and nontender Auscultation: normal bowel sounds Skin Other: Large chronic appearing ulceration right distal forearm just proximal to the wrist, with some brownish exudate but no localized erythema or induration. General skin exam: other (Warm and dry) Neuro General: patient oriented x3 and CN's II-XI intact bilaterally Cranial nerves: Yes Equal, round and reactive pupils present Extrem General: Yes no pedal edema Psych Affect: normal affect Attitude: cooperative Medical Decision Making MDM Narrative Medical decision making narrative: Patient with chronic right forearm wound, now with fever, feels like she has a recurrence of endocarditis. Fever was 201. Patient is tachycardic. No other obvious source of infection. Lactic acid level is normal. No leukocytosis. Patient was started on vancomycin and Zosyn, normal saline IV bolus. Patient is to be admitted to the Medical Service, Dr. Browne accepted. Patient's comprehensive metabolic panel is still pending, appears to have needed to redraw. Lab Data Lab results reviewed: Yes I reviewed the patient's lab results. Result diagrams: 12/22/21 02:38 12/22/21 02:38 Labs: Lab Results 12/21/21 12/22/21 12/22/21 Range/Units 22:44 02:38 02:38 WBC 7.8 (4.8-10.8) X10*3/uL RBC 3.97 L (4.20-5.50) X10*6/uL Hgb 10.9 L (12.0-16.0) g/dl Hct 32.8 L (37.0-47.0) % MCV 82.6 (80.0-98.0) fL MCH 27.5 (27.0-33.0) pg MCHC 33.2 (31.0-35.0) g/dl RDW 15.5 (11.0-16.0) % Plt Count 96 L D (160-400) X10*3/uL MPV 10.5 (9.4-12.3) fL Immature Gran % (Auto) 1.9 H (0.0-0.4) % Neut % (Auto) 65.3 (45-73) % Lymph % (Auto) 23.2 (20-40) % [place] % (Auto) 9.2 (2-11) % Eos % (Auto) 0.0 (0-4) % Baso % (Auto) 0.4 (0-2) % Lymph # (Auto) 1.8 (1.2-4.9) X10*3/uL [place] # (Auto) 0.7 (0.1-1.2) X10*3/uL Eos # (Auto) 0.0 (0.0-0.4) X10*3/uL Baso # (Auto) 0.0 (0.0-0.2) X10*3/uL Abs Immat Gran (auto) 0.15 H (0.00-0.03) X10*3/uL Absolute Neuts (auto) 5.1 (2.0-8.3) x10*3/uL Absolute Nucleated RBC 0.000 (0.0-0.012) X10*3/uL Nucleated RBC % (auto) 0.0 (0.0-0.2) /100WBC ESR (0-20) MM/HR Lactic Acid (0.5-2.0) mmol/L Beta HCG, Quant Cancelled COVID-19 ([facility]) Negative (Negative) COVID-19 Clin Com See Note 12/22/21 12/22/21 Range/Units 02:38 02:38 WBC (4.8-10.8) X10*3/uL RBC (4.20-5.50) X10*6/uL Hgb (12.0-16.0) g/dl Hct (37.0-47.0) % MCV (80.0-98.0) fL MCH (27.0-33.0) pg MCHC (31.0-35.0) g/dl RDW (11.0-16.0) % Plt Count (160-400) X10*3/uL MPV (9.4-12.3) fL Immature Gran % (Auto) (0.0-0.4) % Neut % (Auto) (45-73) % Lymph % (Auto) (20-40) % [place] % (Auto) (2-11) % Eos % (Auto) (0-4) % Baso % (Auto) (0-2) % Lymph # (Auto) (1.2-4.9) X10*3/uL [place] # (Auto) (0.1-1.2) X10*3/uL Eos # (Auto) (0.0-0.4) X10*3/uL Baso # (Auto) (0.0-0.2) X10*3/uL Abs Immat Gran (auto) (0.00-0.03) X10*3/uL Absolute Neuts (auto) (2.0-8.3) x10*3/uL Absolute Nucleated RBC (0.0-0.012) X10*3/uL Nucleated RBC % (auto) (0.0-0.2) /100WBC ESR 34 H (0-20) MM/HR Lactic Acid 1.5 (0.5-2.0) mmol/L Beta HCG, Quant COVID-19 ([facility]) (Negative) COVID-19 Clin Com Imaging Data Chest x-ray: Radiologist's impression: IMPRESSION: Trace right pleural effusion Low lung volumes and bibasilar subsegmental atelectasis. ? ECG Data Attestation: I personally reviewed and interpreted this ECG as follows: Interpretation: Sinus tachycardia with rate of 118. PACs present. Right axis deviation. Low voltage QRS. Right axis deviation and low voltage QRS appeared to be new compared to EKG dated 03/31/2021 Discharge Plan Discharge Clinical Impression: Cocaine use disorder, severe, dependence, Fever Patient Disposition: Admitted As Inpatient
[2021-12-22 01:18] VITALS: BP 104/74; PULSE 110; RESP 18; TEMP 38.4; O2SAT 94
--- NOTE | 2021-12-22 02:10 | PC.NURSE ---
IV's were attempted by two different RN's. Both were unsuccessful and pt was not being cooperative with RNs. MD alvarado.
[2021-12-22] MEDS: Piperacillin Sodium/Tazobactam 4.5 GM in 0.9 % Sodium Chloride 100 ML IV ×3 (02:39→21:19)
[2021-12-22] MEDS: 0.9 % Sodium Chloride 1,000 ML 999 ML IV (02:41)
[2021-12-22 02:45] LABS: MANUAL DIFF FLAG NO
[2021-12-22 02:46] LABS: Basophils Percent Auto 0.4 % (0-2); Hematocrit 32.8 % (37.0-47.0); Hemoglobin 10.9 g/dl (12.0-16.0); Imm Gran Abs Auto 0.15 X10*3/uL (0.00-0.03); Imm Gran Pct Auto 1.9 % (0.0-0.4); Lymphocytes Absolute Auto 1.8 X10*3/uL (1.2-4.9); Lymphocytes Percent Auto 23.2 % (20-40); Mean Corpuscular HGB Conc 33.2 g/dl (31.0-35.0); Mean Corpuscular Hemoglobin 27.5 pg (27.0-33.0); Mean Corpuscular Volume 82.6 fL (80.0-98.0); Mean Platelet Volume 10.5 fL (9.4-12.3); Monocytes Absolute Auto 0.7 X10*3/uL (0.1-1.2); Monocytes Percent Auto 9.2 % (2-11); Neutrophils Absolute Auto 5.1 x10*3/uL (2.0-8.3); Neutrophils Percent Auto 65.3 % (45-73); Red Blood Count 3.97 X10*6/uL (4.20-5.50); Red Cell Distribution Width 15.5 % (11.0-16.0); White Blood Count 7.8 X10*3/uL (4.8-10.8)
[2021-12-22 03:04] LABS: Lactic Acid 1.5 mmol/L (0.5-2.0)
[2021-12-22] MEDS: vancomycin HCL 1,500 MG in 0.9 % Sodium Chloride 500 ML 333.33 MG IV (03:07)
[2021-12-22 03:10] LABS: Platelet Count 96 X10*3/uL (160-400)
[2021-12-22 03:32] LABS: Erythrocyte Sedimentation Rate 34 MM/HR (0-20)
[2021-12-22] MEDS: Morphine Sulfate 10 MG/ML CARTRIDGE 8 MG IVPUSH (04:42)
--- NOTE | 2021-12-22 07:00 | CA_ITS ---
Transthoracic Echocardiogram Patient (Last, First, Middle): Vanda hC, Gender: Female Date of : 1995 Age: 26 Procedure Date: 12/22/2021 Procedure Type: Transthoracic Echocardiogram Location: ER Height: 149.86 cm Weight: 61.24 kg BSA: 1.56 m2 Heart Rate: bpm BP: 77 / 43 mmHg Applications Support Specialist: TO Referring MD: Ellie HARRIS Senior Net Software Developer: Nain Casanova MD Symptoms: r/o endocarditis, fevers, chills, malaisea IVDA Study Quality: Fair ECG Rhythm: Sinus Conclusions: - 1. 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 Severely enlarged right-sided chambers 3. Normal LV systolic and diastolic function 4. No gross pericardial effusion Findings Left Ventricle Normal left ventricular size, thickness, and systolic function. The visually estimated ejection fraction is between 55-60%. There is a flattened septum in diastole ( D shaped left ventricle) consistent with right ventricular volume overload. Spectral Doppler is indicative of a normal filling pattern. Right Ventricle Severely increased right ventricular cavity size. There is normal right ventricular systolic function. Atria The left atrium is normal in size. Interatrial shunt cannot be excluded. The right atrium is severely dilated. Aortic Valve Normal aortic valve structure and function. There is no aortic valve stenosis. There is no aortic valve regurgitation. Mitral Valve Normal mitral valve structure and function. There is trace mitral valve regurgitation. There is no mitral valve stenosis. Pulmonic Valve The pulmonic valve was not well visualized. Tricuspid Valve There is severe tricuspid valve regurgitation. The tricuspid regurgitation jet is directed centrally. There is a large mobile mass on the tricuspid valve. The mass is consistent with vegetation. Significantly elevated right atrial pressure. There is no evidence of pulmonary hypertension. on some views there appears to be poor coaptation of the leaflets. Perforated leaflets cannot be ruled out Great Vessels All visible segments of the aorta are normal in size. The pulmonary artery was not well visualized. Venous The inferior vena cava is severely dilated and collapses less than 50% with inspiration. Hepatic vein flow indicates systolic flow reversal. Pericardium/Pleural There is no evidence of pericardial effusion. Prior Study Comparison Changes noted compared to prior study dated: 04/02/2021. Right-sided chambers are significantly enlarged and there is presence of severe tricuspid regurgitation which appears to be wide open Measurements 2D Linear Measurements IVSd: 0.77 0.6-0.9/0.6-1.0 cm LVIDd: 4.06 3.9-5.3/4.2-5.9 cm LVIDd Index: 2.60 2.4-3.2/2.2-3.1 cm/m2 LVIDs: 2.97 2.0-3.6 cm LVPWd: 0.75 0.7-1.1 cm LA Diam: 3.10 2.7-3.8/3.0-4.0 cm LAIDs Index: 1.99 1.5-2.3 cm/m2 LV Mass: 110.70 67-162/88-224 g LV Mass Index: 70.96 43-95/49-115 g/m2 LVOT Diam: 2.00 3.0+(-)1.3 cm Mitral Valve MV Pk E: 0.54 MV PK A: 0.34 MV Decel Time: 172.00 E/A: 1.60 E'Lateral: 12.60 E'Medial: 10.30 E/E' Med: 5.30 E/E' Lat: 4.30 PHT: 50.00 MVA PHT: 4.40 Decel Harrison: 3.17 Aortic Valve AoV Pk Kameron: 1.13 AoV Mn Kameron: 0.76 AoV VTI: 0.17 AoV Pk Grad: 5.00 Aov Mn Grad: 3.00 CARLOS ALBERTO Cont.VTI: 1.92 LVOT LVOT Pk Kameron: 0.64 LVOT Mn Kameron: 0.40 LVOT VTI: 0.10 LVOT Pk Grad: 2.00 LVOT Mn Grad: 1.00 LVOT Diam: 2.00 LVOT Area: 3.14 Diastolic Function MV Pk E: 0.54 MV Pk A: 0.34 E/A: 1.60 E'Medial: 10.30 E/E' Med: 5.30 E' Laterial: 12.60 E/E' Lat: 4.30 Right Ventricle TAPSE (mm): 25.70 TVS' Kameron: 20.10 Tricuspid Valve TR Pk Kameron: 2.40 TR Pk Grad: 23.00 Great Vessels Aorta Sinus of Valsalva: 2.84 2.0-3.5 cm Ao Asc: 2.60 2.1-3.4 cm Updated in Other Vendor System with Status of Final Nain Casanova MD electronically signed on 12/22/2021 4:11:08 PM with status of Final
--- NOTE | 2021-12-22 07:32 | PC.NURSE ---
Blood cultures never drawn on pt on the overnight, t/w contacted MD Senior as abx had already been given - per - freddie to draw cultures at this time. will contact phlebotomy as pt a difficult poke
[2021-12-22 08:18] VITALS: BP 102/46; PULSE 98; RESP 20; TEMP 37.2; O2SAT 100
--- NOTE | 2021-12-22 08:26 | PHA.MEDREC ---
Pharmacy Consult ? Medication Reconciliation Pharmacy has completed the medication reconciliation. Patient reports no medications at home. RN stated that she previously said she was on methadone. When I asked if she takes methadone, patient reporting that she would like to be on methadone. Kesha Rachel, JoannaD
--- NOTE | 2021-12-22 08:43 | PC.NURSE ---
Addendum entered by Delores Xie RN 12/22/21 09:04: [id number] * Original Note: photographed pt wound to R wrist - will send to MD via [facility]ig[facility]zoiconne[facility]. wound bed beefy red, with pus drainage, foul odor noted. wound edges appear necrotic. measuring 9Lx9w cm. dressig change applied, two nonstick dressing pads and wrapped until wound consult.
[2021-12-22 09:49] LABS: INTERNATIONAL NORM RATIO 1.5 (0.9-1.1); Prothrombin Time 17.8 SEC (10.0-13.1)
[2021-12-22 09:51] LABS: Partial Thromboplastin Time 32.3 SEC (26.0-36.4)
[2021-12-22 10:02] LABS: Alanine Aminotransferase 40 U/L (0-31); Albumin Level 2.6 g/dL (3.5-5.0); Alkaline Phosphatase 87 U/L (39-117); Anion Gap 14 (12-20); Aspartate Amino Transferase 29 U/L (5-31); Bilirubin Direct 0.8 mg/dL (0.0-0.5); Bilirubin Total 1.3 mg/dL (0.0-1.0); Blood Urea Nitrogen 18 mg/dL (9-16); Calcium 7.9 mg/dL (8.4-10.2); Carbon Dioxide 20 mmol/L (22-29); Chloride 98 mmol/L (96-108); Creatinine Clr Calc Pharmacy 71.9; Estimated Glomerular Filt Rate > 60; Glucose Random 126 mg/dL (60-115); Potassium 3.4 mmol/L (3.3-5.1); Sodium 129 mmol/L (135-145); Total Protein 5.7 g/dL (6.5-8.0)
--- NOTE | 2021-12-22 11:10 | PC.NURSE ---
Recovery support RN at bedside
--- NOTE | 2021-12-22 11:15 | MHC.RECOVRN ---
Met with pt in ED16 to discuss substance use as well as assess for withdrawal. Pt laying in bed, awake, alert, easily engages in conversation, watching TV. Familiar with t/w from previous admission. Pt reports heroin use, 2 bundles daily, IV; cocaine, $100 daily, IV; alcohol, 5+ beers daily. Last substance use prior to arrival. Pt reports body aches, chills, diarrhea, visibly diaphoretic, slight restlessness. Last admission pt had been receiving 55 mg methadone (started here) and was connected to [facility]. After discharge (Apr 2021) pt did not continue with the [facility]. Pt interested in methadone initiation. Discussed with Jinny Wright APRN.
[2021-12-22] MEDS: methADONE HCl 20 MG/2 ML ORAL.CONC 30 MG PO (12:16)
[2021-12-22 12:20] LABS: HBS Num1 2.06 mIU/mL (0-7.99); HBc Num1 0.16 S/CO (0.00-0.79); HBsAGNum1 0.33 S/CO (0.00-0.99); HIV AB/AG Nonreactive (Nonreactive); HIV Num 1 0.07 S/CO (0.00-0.99); Hepatitis B Core Antibody Nonreactive (Nonreactive); Hepatitis B Surface Antigen Negative (Negative); ~HepC Num1 14.28 S/CO (0.00-0.79); ~Hepatitis B Surface Antibody NONREACTIVE (Nonreactive); ~Hepatitis C Antibody Reactive (Nonreactive)
--- NOTE | 2021-12-22 12:22 | P.HPHOSP_ITS ---
History of Present Illness Date of Service: 12/22/21 Attending physician on admission: [facility] Chief Complaint: fever, chronic right forearm wound 26 year old female with history of polysubstance abuse (IV cocaine and dope), no recent heroin use presenting to the ED for reporting subjective fevers, chills, sweats, myalgia, back pain, and generalized weakness. She also has RUQ ten derness with nausea, no vomiting. Reporting nonradiating substernal/epigastric pain as well. Was hospitalized for endocarditis and septic emboli earlier this year and states she feels similar. Has also had a chronic wound of the right forearm that has been present for months without improvement. States she has been injecting cocaine into the wound recently, last use was last night. On arrival patient met sepsis criteria with temperature 101.1 and tachycardia of 110. Lactic acid 1.5. Blood cultures drawn, forearm wound cultured. Received fluid bolus NS, 4.5g zosyn, 1.5g vanco as well as 8mg morphine. Urine drug screen pending. CXR with trace right sided pleural effusion and low lung volumes with sibsegmental atelectasis. Contulted on by addiction medicine and methadone intiated. No longer febrile. Still mildly tachycardic at 98. Otherwise vital signs normal. EKG sinua tachycardia with premature supraventricular complexes, rate 118. Review of Systems Review of Systems: General: +feveres, +malaise, +chills/sweats HEENT: No blurred vision, diplopia Cardiovascular: +chest pain. No palpitations, or leg edema Respiratory: No shortness of breath, wheezing, cough GI: +RUQ and epigastric pain, nausea. No vomiting, diarrhea, constipation, melena, hematochezia Neuro: +diffuse weakenss. No headaches, paresthesias Skin: +chronic wound [facility] Medical History (Updated 12/22/21 @ 12:50 by STEVEN Dna) MELITON (acute kidney injury) Bacteremia Elevated blood pressure reading History of endocarditis Septic embolism Substance abuse Wound of right upper extremity Family History (Updated 12/22/21 @ 12:43 by STEVEN Dan) Mother No problems noted. Father No problems noted. Social History Household Members: None and Other Housing: Homeless Housing Other:: homeless but states staying with friends Do you presently have visiting nurse or other home services: No Unable to assess alcohol history related to: Refusing to respond Alcohol intake: current Alcohol intake frequency: 3 or more drinks per day Patient Tobacco Use Status: Current someday Tobacco user Tobacco use type: Cigarette Substance Use Type: Crack/Cocaine, Heroin, Marijuana and Opiates service: No Current occupational status: unemployed Meds Allergies Allergy/AdvReac Type Severity Reaction Status Date / Time No Known Allergies Allergy Verified 06/16/21 22:25 Active Medications: Current Medications Morphine Sulfate (Morphine Sulfate 2 Mg/Ml Cartridge) 1 mg IVPUSH Q4H PRN; Protocol PRN Reason: Pain, Severe (Pain Scale 7-10) Oxycodone HCl (Oxycodone Hcl Immed Release 5 Mg Tablet) 5 mg PO Q4H PRN PRN Reason: Pain, Moderate (Pain Scale 4-6 Home Medications Medication Instructions Recorded Confirmed Last Taken Type No Known Home Meds 12/22/21 12/22/21 Unknown History Physical Exam Vital Signs and Narrative: Vital Signs: Last Vital Signs Temp 98.9 F 12/22/21 08:18 Pulse 98 12/22/21 08:18 Resp 20 12/22/21 08:18 BP 102/46 L 12/22/21 08:18 Pulse Ox 100 12/22/21 08:18 O2 Del Method 12/22/21 08:18 BMI result Body Mass Index 27.2 Constitutional - Awake and alert. Diaphoretic appearing in mild distress Eyes - PERRLA, EOMI Cardiovascular - S1S2, RRR, No edema Respiratory - Crackles right base. Normal lung expansion, Normal respiratory ef fort, No respiratory distress Gastrointestinal - Moder ttp RUQ/epigastric area without guarding or rebound. +BS, nondistended Extremities - no calf tenderness bilaterally, no swelling Musculoskeletal - Moderate/severe ttp upper and lower back without focal area of tenderness Skin - Warm/Dry. Excoriated lesions of the lower extremities bilaterally without surrounding erythema. Wound right forearm- see photo below Neurological - Alert & oriented x3, 2/5 strength BLE, 4/5 strength BUE. sensation in tact. CN II -XII in tact Psychological - Appropriate affect Results Labs CBC and Chem 7: 12/22/21 02:38 12/22/21 09:07 Labs: Laboratory Results - last 24 hr 12/21/21 12/22/21 12/22/21 22:44 02:38 02:38 MCV 82.6 MCH 27.5 MCHC 33.2 RDW 15.5 Plt Count 96 L D MPV 10.5 Immature Gran % (Auto) 1.9 H Neut % (Auto) 65.3 Lymph % (Auto) 23.2 Ward % (Auto) 9.2 Eos % (Auto) 0.0 Baso % (Auto) 0.4 Lymph # (Auto) 1.8 Ward # (Auto) 0.7 Eos # (Auto) 0.0 Baso # (Auto) 0.0 Abs Immat Gran (auto) 0.15 H Absolute Neuts (auto) 5.1 Absolute Nucleated RBC 0.000 Nucleated RBC % (auto) 0.0 ESR PT INR APTT Anion Gap Estim Creat Clear Calc Estimated GFR Random Glucose Lactic Acid Calcium Total Bilirubin Direct Bilirubin AST ALT Alkaline Phosphatase Total Protein Albumin Beta HCG, Quant Cancelled COVID-19 ([facility]) Negative COVID-19 Clin Com See Note 12/22/21 12/22/21 12/22/21 02:38 02:38 09:07 MCV MCH MCHC RDW Plt Count MPV Immature Gran % (Auto) Neut % (Auto) Lymph % (Auto) Ward % (Auto) Eos % (Auto) Baso % (Auto) Lymph # (Auto) Ward # (Auto) Eos # (Auto) Baso # (Auto) Abs Immat Gran (auto) Absolute Neuts (auto) Absolute Nucleated RBC Nucleated RBC % (auto) ESR 34 H PT INR APTT Anion Gap 14 Estim Creat Clear Calc 71.9 Estimated GFR > 60 Random Glucose 126 H Lactic Acid 1.5 Calcium 7.9 L D Total Bilirubin 1.3 H Direct Bilirubin 0.8 H AST 29 D ALT 40 H Alkaline Phosphatase 87 Total Protein 5.7 L D Albumin 2.6 L D Beta HCG, Quant COVID-19 ([facility]) COVID-19 Clin Com 12/22/21 09:07 MCV MCH MCHC RDW Plt Count MPV Immature Gran % (Auto) Neut % (Auto) Lymph % (Auto) Ward % (Auto) Eos % (Auto) Baso % (Auto) Lymph # (Auto) Ward # (Auto) Eos # (Auto) Baso # (Auto) Abs Immat Gran (auto) Absolute Neuts (auto) Absolute Nucleated RBC Nucleated RBC % (auto) ESR PT 17.8 H INR 1.5 H APTT 32.3 Anion Gap Estim Creat Clear Calc Estimated GFR Random Glucose Lactic Acid Calcium Total Bilirubin Direct Bilirubin AST ALT Alkaline Phosphatase Total Protein Albumin Beta HCG, Quant COVID-19 ([facility]) COVID-19 Clin Com Imaging Radiologist's Impressions: Impressions Chest X-Ray 12/22/21 01:32 IMPRESSION: Trace right pleural effusion Low lung volumes and bibasilar subsegmental atelectasis. Assessment and Plan (1) Sepsis: Status: Acute (2) Wound of right upper extremity: Status: Acute (3) Cocaine use disorder, severe, dependence: Status: Acute (4) Opioid use disorder, severe, dependence: Status: Acute (5) Back pain: Status: Acute (6) Lower extremity weakness: Status: Acute Plan 26 year old female with history of IV cocaine and heroin abuse, history of endocarditis presenting to the hospital with vague complaints admitted for sepsis, chronic wound right forearm, and fever. 1- Sepsis- secondary to infected wound right forearm vs possible endocarditis -Presented with fever 101.1 and tachycardia of 110. Normal lactic acid, 1.5, no severe sepsis. Did receive IV NS bolus and empiric zosyn and vanco following blood culture draw 2-Chronic wound right forearm -CT wrist w/ contrast ordered to evaluate for gas or abscess -Continue Vanco and zosyn -General surgery consulted for possible debridement 3-Possible endocarditis- hx infective endocarditis with ongoing IV drug abuse with vague complaints including fever, chills, diaphoretic on exam, malaise, myalgia -Blood cultures pending -Echocardiogram ordered -Continue IV abx as above 4-Severe back pain with weakness BLE -MRI lumbar spine ordered r/o epidural abscess. Continue IV abx as above -Oxycodone and morphine on pain scale 5- Cocaine and opiate abuse -Seen by care team and addiction medicine and started on methadone 30mg daily -Elevated LFTs- Hepatitis B and C ordered. HIV ab ordered 6-RUQ pain with elevated LFTs -Reports etoh consumtion 2-5 per day. CIWA assessment ordered -Hepatitis B, C and HIV as above -RUQ u/s ordered -Trend CMP daily DVT prophylaxis- lovenox Full code Patient requires inpatient stay of at least two midnights due to sepsis with chronic nonhealing wound of right forearm and possible endocarditis require further workup and IV antibiotics. Quality Stroke Does the patient have a stroke diagnosis?: No VTE Prior VTE?: No VTE Risk Level:: Medical - moderate - high VTE Device Contraindication: Treatment Not Indicated VTE Drug Contraindication: N/A - Med Ordered
--- NOTE | 2021-12-22 12:39 | PHA.PROG ---
Admission Date/Time: December 22, 2021 07:45 Indication: Skin Infection (Hx bacteremia/endocarditis) Weight in k.235 kg Adjusted body weight in K kg Pearson body weight in K kg Obesity Dosing Indication % IBW: 136% Serum Creatinine - Last 168 Hours 12/22/21 09:07 Creatinine 0.96 Estimated CrCl and GFR - Last 168 Hours 12/22/21 09:07 Estim Creat Clear Calc 71.9 Estimated GFR > 60 Vancomycin Loading Dose: 1500 mg (25 mg/kg) Current Vancomycin Dosing Regimen: 750 mg Q12H Date and Time for next Vancomycin Level to be drawn: 12/23 @ 1300 Pharmacist Comments on Vancomycin Plan: Patient received loading dose vancomycin 1500 mg in the ED 12/22 @ 0300. Maintenance dose vancomycin 750 mg Q12H to begin 12/22 @ 1500. Expected AUC 541 with a trough of 17.5. Since patient %IBW > 130%, patient requires obesity dose and careful monitoring. If patients renal function improves, which is expected with increase in fluid intakes, patient will need an increased dose tomorrow. Sense patient is currently being treated for right wound infection we will be less aggressive until first vancomycin level as well as change in renal function. Pharmacy will continue to monitor renal function daily Trough to be drawn prior to 4th dose, Kesha Rachel PharmD Vancomycin dosing will take advantage of [employer] as a clinical decision support tool that uses Bayesian modeling to calculate individual patient's pharmacokinetic parameters and forecast the patient's drug concentration time course with the target goal AUC 24 range of 400 - 600 mg/L/hr.
[2021-12-22] MEDS: Enoxaparin Sodium 40 MG/0.4 ML SYRINGE SUBCUT (13:47)
--- NOTE | 2021-12-22 15:13 | MHC.RECOVRN ---
Followed up with pt after receiving methadone, 30 mg. Pt sleeping soundly but wakes to voice. Pt denies complaints. Jinny Wright APRN, aware.
--- NOTE | 2021-12-22 16:12 | P.CONGS_ITS ---
History of Present Illness Consult details Consult date: 12/22/21 Narrative: 26-year-old female with known polysubstance abuse, who came to the ED last night because of fever, chills and chest pain. She so this large open wound on the right forearm which she apparently has had for several months. She admits to in this open wound for cocaine use. She does not offer much with regards to the rest of her history. 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 Review of Systems Constitutional: Constitutional: Reports chills and Reports fever(s) Cardiovascular: Cardiovascular: Denies chest pain, Reports dyspnea and Denies dyspnea on exertion Respiratory: Respiratory: Denies cough, Reports dyspnea and Denies dyspnea on exertion Gastrointestinal: Gastrointestinal: Denies hematochezia and Denies change in bowel habits Genitourinary: Genitourinary: Denies hematuria Musculoskeletal: Musculoskeletal: Reports back pain, Reports arthralgias and Denies limited range of motion Neurologic: Denies focal weakness and Denies convulsions Psychiatric: Psychiatric: Denies depression and Denies mood swings PMFSH Past Medical History Medical History MELITON (acute kidney injury) Bacteremia Elevated blood pressure reading History of endocarditis Septic embolism Substance abuse Wound of right upper extremity Family History Family History Mother No problems noted. Father No problems noted. Social History Social History Household Members: None and Other Housing: Homeless Housing Other:: homeless but states staying with friends Do you presently have visiting nurse or other home services: No Unable to assess alcohol history related to: Refusing to respond Alcohol intake: current Alcohol intake frequency: 3 or more drinks per day Patient Tobacco Use Status: Current someday Tobacco user Tobacco use type: Cigarette Substance Use Type: Crack/Cocaine, Heroin, Marijuana and Opiates service: No Current occupational status: unemployed Meds Allergies Allergy/AdvReac Type Severity Reaction Status Date / Time No Known Allergies Allergy Verified 06/16/21 22:25 Active Medications: Current Medications Enoxaparin Sodium (Enoxaparin Sodium 40 Mg/0.4 Ml Syringe) 40 mg SUBCUT Q24H [facility] Last Admin: 12/22/21 13:47 Dose: 40 mg Piperacillin Sod/Tazobactam (Sod 4.5 gm/ Sodium Chloride) 100 mls @ 200 mls/hr IV Q8H [facility] Last Admin: 12/22/21 13:47 Dose: 200 mls/hr Vancomycin HCl 750 mg/ Sodium (Chloride) 265 mls @ 265 mls/hr IV Q12H [facility] Morphine Sulfate (Morphine Sulfate 2 Mg/Ml Cartridge) 2 mg IVPUSH Q4H PRN; Protocol PRN Reason: Pain, Severe (Pain Scale 7-10) Oxycodone HCl (Oxycodone Hcl Immed Release 5 Mg Tablet) 5 mg PO Q4H PRN PRN Reason: Pain, Moderate (Pain Scale 4-6 Pharmacy Consult (Consult Rx Vancomycin Dosing) 1 each MISCELLANE DAILY PRN PRN Reason: Consult order Home Medications Medication Instructions Recorded Confirmed Last Taken Type No Known Home Meds 12/22/21 12/22/21 Unknown History Physical Exam Vital Signs: Vital Signs: Last Vital Signs Temp 98.9 F 12/22/21 08:18 Pulse 98 12/22/21 08:18 Resp 20 12/22/21 08:18 BP 102/46 L 12/22/21 08:18 Pulse Ox 100 12/22/21 08:18 O2 Del Method 12/22/21 08:18 BMI result Body Mass Index 27.2 Const: General: comfortable and no acute distress Orientation/consciousness: patient oriented x3 Neck: Neck: Yes no lymphadenopathy Resp: Auscultation: clear to auscultation bilaterally Cardio: Rhythm: regular rhythm GI: Palpation (GI): Soft to palpation, nontender and no guarding Neuro: General: patient oriented x3 Results Labs Result diagrams: 12/22/21 02:38 12/23/21 14:02 Labs: Abnormal lab results 12/22/21 12/22/21 12/22/21 Range/Units 02:38 02:38 09:07 RBC 3.97 L (4.20-5.50) X10*6/uL Hgb 10.9 L (12.0-16.0) g/dl Hct 32.8 L (37.0-47.0) % Plt Count 96 L D (160-400) X10*3/uL Immature Gran % (Auto) 1.9 H (0.0-0.4) % Abs Immat Gran (auto) 0.15 H (0.00-0.03) X10*3/uL ESR 34 H (0-20) MM/HR PT (10.0-13.1) SEC INR (0.9-1.1) Sodium 129 L (135-145) mmol/L Carbon Dioxide 20 L (22-29) mmol/L BUN 18 H D (9-16) mg/dL Random Glucose 126 H (60-115) mg/dL Calcium 7.9 L D (8.4-10.2) mg/dL Total Bilirubin 1.3 H (0.0-1.0) mg/dL Direct Bilirubin 0.8 H (0.0-0.5) mg/dL ALT 40 H (0-31) U/L Total Protein 5.7 L D (6.5-8.0) g/dL Albumin 2.6 L D (3.5-5.0) g/dL Hepatitis C Ab (EIA) (Nonreactive) 12/22/21 12/22/21 Range/Units 09:07 09:07 RBC (4.20-5.50) X10*6/uL Hgb (12.0-16.0) g/dl Hct (37.0-47.0) % Plt Count (160-400) X10*3/uL Immature Gran % (Auto) (0.0-0.4) % Abs Immat Gran (auto) (0.00-0.03) X10*3/uL ESR (0-20) MM/HR PT 17.8 H (10.0-13.1) SEC INR 1.5 H (0.9-1.1) Sodium (135-145) mmol/L Carbon Dioxide (22-29) mmol/L BUN (9-16) mg/dL Random Glucose (60-115) mg/dL Calcium (8.4-10.2) mg/dL Total Bilirubin (0.0-1.0) mg/dL Direct Bilirubin (0.0-0.5) mg/dL ALT (0-31) U/L Total Protein (6.5-8.0) g/dL Albumin (3.5-5.0) g/dL Hepatitis C Ab (EIA) Reactive H (Nonreactive) Short CBC 12/22/21 Range/Units 02:38 WBC 7.8 (4.8-10.8) X10*3/uL Hgb 10.9 L (12.0-16.0) g/dl Hct 32.8 L (37.0-47.0) % Plt Count 96 L D (160-400) X10*3/uL BMP 12/22/21 09:07 Sodium 129 L Potassium 3.4 Chloride 98 Carbon Dioxide 20 L BUN 18 H D Creatinine 0.96 Calcium 7.9 L D Liver Function 12/22/21 Range/Units 09:07 Total Bilirubin 1.3 H (0.0-1.0) mg/dL Direct Bilirubin 0.8 H (0.0-0.5) mg/dL AST 29 D (5-31) U/L ALT 40 H (0-31) U/L Alkaline Phosphatase 87 (39-117) U/L Albumin 2.6 L D (3.5-5.0) g/dL All other labs normal. Imaging Additional studies: Laboratory Results WBC 7.8 X10*3/uL (4.8-10.8) 12/22/21 02:38 RBC 3.97 X10*6/uL (4.20-5.50) L 12/22/21 02:38 Hgb 10.9 g/dl (12.0-16.0) L 12/22/21 02:38 Hct 32.8 % (37.0-47.0) L 12/22/21 02:38 MCV 82.6 fL (80.0-98.0) 12/22/21 02:38 MCH 27.5 pg (27.0-33.0) 12/22/21 02:38 MCHC 33.2 g/dl (31.0-35.0) 12/22/21 02:38 RDW 15.5 % (11.0-16.0) 12/22/21 02:38 Plt Count 96 X10*3/uL (160-400) L D 12/22/21 02:38 MPV 10.5 fL (9.4-12.3) 12/22/21 02:38 Immature Gran % (Auto) 1.9 % (0.0-0.4) H 12/22/21 02:38 Neut % (Auto) 65.3 % (45-73) 12/22/21 02:38 Lymph % (Auto) 23.2 % (20-40) 12/22/21 02:38 [place] % (Auto) 9.2 % (2-11) 12/22/21 02:38 Eos % (Auto) 0.0 % (0-4) 12/22/21 02:38 Baso % (Auto) 0.4 % (0-2) 12/22/21 02:38 Lymph # (Auto) 1.8 X10*3/uL (1.2-4.9) 12/22/21 02:38 [place] # (Auto) 0.7 X10*3/uL (0.1-1.2) 12/22/21 02:38 Eos # (Auto) 0.0 X10*3/uL (0.0-0.4) 12/22/21 02:38 Baso # (Auto) 0.0 X10*3/uL (0.0-0.2) 12/22/21 02:38 Abs Immat Gran (auto) 0.15 X10*3/uL (0.00-0.03) H 12/22/21 02:38 Absolute Neuts (auto) 5.1 x10*3/uL (2.0-8.3) 12/22/21 02:38 Absolute Nucleated RBC 0.000 X10*3/uL (0.0-0.012) 12/22/21 02:38 Nucleated RBC % (auto) 0.0 /100WBC (0.0-0.2) 12/22/21 02:38 ESR 34 MM/HR (0-20) H 12/22/21 02:38 PT 17.8 SEC (10.0-13.1) H 12/22/21 09:07 INR 1.5 (0.9-1.1) H 12/22/21 09:07 APTT 32.3 SEC (26.0-36.4) 12/22/21 09:07 Sodium 129 mmol/L (135-145) L 12/22/21 09:07 Potassium 3.4 mmol/L (3.3-5.1) 12/22/21 09:07 Chloride 98 mmol/L (96-108) 12/22/21 09:07 Carbon Dioxide 20 mmol/L (22-29) L 12/22/21 09:07 Anion Gap 14 (12-20) 12/22/21 09:07 BUN 18 mg/dL (9-16) H D 12/22/21 09:07 Creatinine 0.96 mg/dL (0.5-1.4) 12/22/21 09:07 Estim Creat Clear Calc 71.9 12/22/21 09:07 Estimated GFR > 60 12/22/21 09:07 Random Glucose 126 mg/dL (60-115) H 12/22/21 09:07 Lactic Acid 1.5 mmol/L (0.5-2.0) 12/22/21 02:38 Calcium 7.9 mg/dL (8.4-10.2) L D 12/22/21 09:07 Total Bilirubin 1.3 mg/dL (0.0-1.0) H 12/22/21 09:07 Direct Bilirubin 0.8 mg/dL (0.0-0.5) H 12/22/21 09:07 AST 29 U/L (5-31) D 12/22/21 09:07 ALT 40 U/L (0-31) H 12/22/21 09:07 Alkaline Phosphatase 87 U/L (39-117) 12/22/21 09:07 Total Protein 5.7 g/dL (6.5-8.0) L D 12/22/21 09:07 Albumin 2.6 g/dL (3.5-5.0) L D 12/22/21 09:07 Beta HCG, Quant Cancelled 12/22/21 02:38 COVID-19 ([facility]) Negative (Negative) 12/21/21 22:44 COVID-19 Clin Com See Note 12/21/21 22:44 Hep Bs Antigen Negative (Negative) 12/22/21 09:07 Hep Bs Antibody NONREACTIVE (Nonreactive) 12/22/21 09:07 Hep B Core Total Ab Nonreactive (Nonreactive) 12/22/21 09:07 Hepatitis C Ab (EIA) Reactive (Nonreactive) H 12/22/21 09:07 HIV 1&2 Ab/P24 Ag 4thGn Nonreactive (Nonreactive) 12/22/21 09:07 Impressions Chest X-Ray 12/22/21 01:32 IMPRESSION: Trace right pleural effusion Low lung volumes and bibasilar subsegmental atelectasis. Abdomen Ultrasound 12/22/21 12:46 IMPRESSION: 1. Enlarged slightly echogenic liver suggesting hepatic steatosis. At the time of the prior chest CT from 2020, the attenuation of the liver with greater than spleen not suggestive of hepatic steatosis. 2. Gallbladder wall calcifications as described above. Assessment and Plan (1) Wound of right upper extremity: Status: Acute She has an open wound as described above. This actually has good granulation tissue although with some fibrinous exudates sitting the open wound. There is some areas with a rim of nonviable tissue although there is no obvious gangrene. I have changed dressings. I do not feel that she will need any surgical debridement at this time but we will probably convert her dressings to silver alginate to allow chemical debridement. I do not think that the wound is the source of her sepsis. I will follow along while she is in the hospital. (2) History of endocarditis: Status: Acute (3) Sepsis: Status: Acute Procedures Date of Service Date of Service: 12/22/21
[2021-12-22] MEDS: vancomycin HCL 750 MG in 0.9 % Sodium Chloride 250 ML 265 MG IV (16:16)
[2021-12-22 16:31] VITALS: BP 91/64; PULSE 91; RESP 22; O2SAT 94
[2021-12-22 16:41] VITALS: BP 104/59; PULSE 88; RESP 22; O2SAT 94
[2021-12-22] MEDS: 0.9 % Sodium Chloride 1,000 ML 125 ML IVCONT (17:30)
--- NOTE | 2021-12-22 17:40 | PC.NURSE ---
Pt requested morphine at 1625 for pain. Morphine pulled however, when at bedside this nurse noted pts blood pressure to be 91/64. Morphine was held to prevent pt blood pressure from dropping. This nurse notified Dr. Nogueira of the pts trending low blood pressure at 1647, fluids were ordered and initiated. Pt offered oxycodone to manage pain instead of morphine, pt declined and stated she just wanted cranberry juice . Pt was given cranberry juice and is now sleeping.
--- NOTE | 2021-12-22 19:42 | HO.ADDICTCON ---
History of Present Illness Date of Service: 12/22/2021 Chief Complaint: Sepsis, rule out endocarditis Reason for Consult: OUD Sources of Information: patient interviewed and chart reviewed HPI Narrative: Patient is a 26 year old female with history of OUD currently medically admitted with chronic arm wound and possible endocarditis. Patient known to this food writer and [facility] via previous prolonged admission for endocarditis. At that time patient was initiated on methadone and discharged to SNF on 55mg. Today patient reporting she discontinued methadone and has been using 2-3 bundles of heroin daily along with cocaine. She is unstably housed. She appears diphoretic and restless when seen by this food writer. Last use reported as being 8pm --prior to presenting to ED. Past Psychiatric History: -Pt denies past hx of psych hospitalizations. No OP psych services. Review of Systems Constitutional: Reports as per HPI Diagnostics Vital Signs (24Hr): Vital Signs - 24 hr 12/21/21 22:32 12/22/21 01:18 12/22/21 08:18 Temperature 99.8 F 101.1 F H 98.9 F Pulse Rate 114 H 110 H 98 Respiratory Rate 18 18 20 Blood Pressure 112/71 104/74 102/46 L Pulse Oximetry 94 94 100 Oxygen Delivery Method Room Air Room Air Room Air 12/22/21 16:31 12/22/21 16:41 Temperature Pulse Rate 91 88 Respiratory Rate 22 H 22 H Blood Pressure 91/64 104/59 L Pulse Oximetry 94 94 Oxygen Delivery Method Room Air Room Air BMI result Body Mass Index 27.2 Labs Results: 12/22/21 02:38 12/22/21 09:07 Labs: Laboratory Results - last 48 hr 12/21/21 12/22/21 12/22/21 22:44 02:38 02:38 WBC 7.8 RBC 3.97 L Hgb 10.9 L Hct 32.8 L MCV 82.6 MCH 27.5 MCHC 33.2 RDW 15.5 Plt Count 96 L D MPV 10.5 Immature Gran % (Auto) 1.9 H Neut % (Auto) 65.3 Lymph % (Auto) 23.2 [place] % (Auto) 9.2 Eos % (Auto) 0.0 Baso % (Auto) 0.4 Lymph # (Auto) 1.8 [place] # (Auto) 0.7 Eos # (Auto) 0.0 Baso # (Auto) 0.0 Abs Immat Gran (auto) 0.15 H Absolute Neuts (auto) 5.1 Absolute Nucleated RBC 0.000 Nucleated RBC % (auto) 0.0 ESR PT INR APTT Sodium Potassium Chloride Carbon Dioxide Anion Gap BUN Creatinine Estim Creat Clear Calc Estimated GFR Random Glucose Lactic Acid Calcium Total Bilirubin Direct Bilirubin AST ALT Alkaline Phosphatase Total Protein Albumin Beta HCG, Quant Cancelled COVID-19 ([facility]) Negative COVID-19 Clin Com See Note Hep Bs Antigen Hep Bs Antibody Hep B Core Total Ab Hepatitis C Ab (EIA) HIV 1&2 Ab/P24 Ag 4thGn 12/22/21 12/22/21 12/22/21 02:38 02:38 09:07 WBC RBC Hgb Hct MCV MCH MCHC RDW Plt Count MPV Immature Gran % (Auto) Neut % (Auto) Lymph % (Auto) [place] % (Auto) Eos % (Auto) Baso % (Auto) Lymph # (Auto) [place] # (Auto) Eos # (Auto) Baso # (Auto) Abs Immat Gran (auto) Absolute Neuts (auto) Absolute Nucleated RBC Nucleated RBC % (auto) ESR 34 H PT INR APTT Sodium 129 L Potassium 3.4 Chloride 98 Carbon Dioxide 20 L Anion Gap 14 BUN 18 H D Creatinine 0.96 Estim Creat Clear Calc 71.9 Estimated GFR > 60 Random Glucose 126 H Lactic Acid 1.5 Calcium 7.9 L D Total Bilirubin 1.3 H Direct Bilirubin 0.8 H AST 29 D ALT 40 H Alkaline Phosphatase 87 Total Protein 5.7 L D Albumin 2.6 L D Beta HCG, Quant COVID-19 ([facility]) COVID-19 Clin Com Hep Bs Antigen Hep Bs Antibody Hep B Core Total Ab Hepatitis C Ab (EIA) HIV 1&2 Ab/P24 Ag 4thGn 12/22/21 12/22/21 09:07 09:07 WBC RBC Hgb Hct MCV MCH MCHC RDW Plt Count MPV Immature Gran % (Auto) Neut % (Auto) Lymph % (Auto) [place] % (Auto) Eos % (Auto) Baso % (Auto) Lymph # (Auto) [place] # (Auto) Eos # (Auto) Baso # (Auto) Abs Immat Gran (auto) Absolute Neuts (auto) Absolute Nucleated RBC Nucleated RBC % (auto) ESR PT 17.8 H INR 1.5 H APTT 32.3 Sodium Potassium Chloride Carbon Dioxide Anion Gap BUN Creatinine Estim Creat Clear Calc Estimated GFR Random Glucose Lactic Acid Calcium Total Bilirubin Direct Bilirubin AST ALT Alkaline Phosphatase Total Protein Albumin Beta HCG, Quant COVID-19 ([facility]) COVID-19 Clin Com Hep Bs Antigen Negative Hep Bs Antibody NONREACTIVE Hep B Core Total Ab Nonreactive Hepatitis C Ab (EIA) Reactive H HIV 1&2 Ab/P24 Ag 4thGn Nonreactive EKG EKG: reviewed Imaging Radiology Impressions: ITS Impressions Chest X-Ray 12/22/21 01:32 IMPRESSION: Trace right pleural effusion Low lung volumes and bibasilar subsegmental atelectasis. Abdomen Ultrasound 12/22/21 12:46 IMPRESSION: 1. Enlarged slightly echogenic liver suggesting hepatic steatosis. At the time of the prior chest CT from 2020, the attenuation of the liver with greater than spleen not suggestive of hepatic steatosis. 2. Gallbladder wall calcifications as described above. Mental Status Exam Mental Status Exam Patient Appearance: Perspiring Level of Consciousness: Awake and Alert Patient Behavior: Cooperative and Restless Speech Pattern: Clear Medications Medications Current Medications Acetaminophen (Acetaminophen 325 Mg Tablet) 650 mg PO Q6H PRN PRN Reason: Fever Enoxaparin Sodium (Enoxaparin Sodium 40 Mg/0.4 Ml Syringe) 40 mg SUBCUT Q24H [facility] Last Admin: 12/22/21 13:47 Dose: 40 mg Piperacillin Sod/Tazobactam (Sod 4.5 gm/ Sodium Chloride) 100 mls @ 200 mls/hr IV Q8H [facility] Last Infusion: 12/22/21 14:30 Dose: Infused Vancomycin HCl 750 mg/ Sodium (Chloride) 265 mls @ 265 mls/hr IV Q12H [facility] Last Infusion: 12/22/21 17:25 Dose: Infused Sodium Chloride (Ns) 1,000 mls @ 125 mls/hr IVCONT .Q8H [facility] Last Admin: 12/22/21 17:30 Dose: 125 mls/hr Methadone HCl (Methadone Hcl 20 Mg/2 Ml Oral.Conc) 30 mg PO DAILY [facility] Morphine Sulfate (Morphine Sulfate 2 Mg/Ml Cartridge) 2 mg IVPUSH Q4H PRN; Protocol PRN Reason: Pain, Severe (Pain Scale 7-10) Oxycodone HCl (Oxycodone Hcl Immed Release 5 Mg Tablet) 5 mg PO Q4H PRN PRN Reason: Pain, Moderate (Pain Scale 4-6 Pharmacy Consult (Consult Rx Vancomycin Dosing) 1 each MISCELLANE DAILY PRN PRN Reason: Consult order Allergies Allergies Allergy/AdvReac Type Severity Reaction Status Date / Time No Known Allergies Allergy Verified 06/16/21 22:25 Assessment & Plan Assessment & Plan (1) Opioid use disorder, severe, dependence: Status: Acute Code(s): F11.20 - Opioid dependence, uncomplicated Assessment and Plan: methadone 30mg X1--when re-evaluated by RN, patient quite drowsy. methadone 30mg in AM and will follow up tp adjust dosing as needed pain medication as necessary I spent __40____ minutes with the patient and/or on the patient floor today, greater than?50% of which was spent counseling/coordinating care. [facility] Past Medical History Medical History (Updated 12/22/21 @ 12:50 by STEVEN Dan) MELITON (acute kidney injury) Bacteremia Elevated blood pressure reading History of endocarditis Septic embolism Substance abuse Wound of right upper extremity Family History Family History (Updated 12/22/21 @ 12:43 by STEVEN Dan) Mother No problems noted. Father No problems noted. Social History Social History Household Members: None Housing: Other Housing Other:: homeless but states staying with friends Do you presently have visiting nurse or other home services: No Unable to assess alcohol history related to: Unable to respond and Refusing to respond Alcohol intake: current Alcohol intake frequency: 3 or more drinks per day Patient Tobacco Use Status: Current everyday Tobacco user Use of substances other than those prescribed or required for medical reasons: Yes Substance Use Type: Crack/Cocaine and Heroin Substance Use Type Other:: fetanyl Substance Use Frequency: Daily Advance Directives: No Advance Directives Information Provided: No Patient : No service: No Current occupational status: unemployed
[2021-12-22 20:24] VITALS: TEMP 37.3
--- NOTE | 2021-12-22 20:35 | PC.NURSE ---
Report to Mindy LUNA
[2021-12-22 20:52] VITALS: BP 105/54; PULSE 122; RESP 22; TEMP 38.9; O2SAT 94
[2021-12-22] MEDS: oxyCODONE HCl Immed Release 5 MG TABLET PO (21:18)
[2021-12-22] MEDS: Acetaminophen 325 MG TABLET 650 MG PO (21:18)
[2021-12-23] VITALS: BP 119/20; PULSE 94; RESP 18; TEMP 37.3; O2SAT 98
[2021-12-23] MEDS: Morphine Sulfate 2 MG/ML CARTRIDGE IVPUSH ×3 (01:55→21:01)
[2021-12-23] MEDS: vancomycin HCL 750 MG in 0.9 % Sodium Chloride 250 ML 265 MG IV (01:57)
[2021-12-23] MEDS: 0.9 % Sodium Chloride 1,000 ML 125 ML IVCONT ×3 (02:13→21:04)
[2021-12-23] MEDS: Piperacillin Sodium/Tazobactam 4.5 GM in 0.9 % Sodium Chloride 100 ML IV ×2 (04:58→13:02)
[2021-12-23 07:28] VITALS: BP 99/51; PULSE 88; RESP 17; TEMP 36.9; O2SAT 96
--- NOTE | 2021-12-23 07:38 | HO.PM.IMPN ---
Subjective Subjective Date of Service: 12/23/21 Interval History: Follow-up on sepsis, bacteremia, concern for endocarditis. Interval history: Review of Systems no fever back pain Physical Exam Vital Signs: Vital Signs: Last Vital Signs Temp 99.1 F 12/23/21 00:00 Pulse 94 12/23/21 00:00 Resp 18 12/23/21 00:00 BP 119/20 L 12/23/21 00:00 Pulse Ox 98 12/23/21 00:00 O2 Del Method 12/23/21 00:00 BMI result Body Mass Index 27.2 Const: General: comfortable and no acute distress Orientation/consciousness: patient oriented x3 Neck: Neck: Yes no lymphadenopathy Resp: Auscultation: clear to auscultation bilaterally Cardio: Rhythm: regular rhythm GI: Palpation (GI): Soft to palpation, nontender and no guarding Skin: Other: see pictures from H and P Neuro: General: patient oriented x3 Objective Data Active Medications Acetaminophen (Acetaminophen 325 Mg Tablet) 650 mg PO Q6H PRN PRN Reason: Fever Last Admin: 12/22/21 21:18 Dose: 650 mg Documented By: MABLE Enoxaparin Sodium (Enoxaparin Sodium 40 Mg/0.4 Ml Syringe) 40 mg SUBCUT Q24H [facility] Last Admin: 12/22/21 13:47 Dose: 40 mg Documented By: CYDNEY Piperacillin Sod/Tazobactam (Sod 4.5 gm/ Sodium Chloride) 100 mls @ 200 mls/hr IV Q8H [facility] Last Infusion: 12/23/21 05:24 Dose: 0 mls/hr Documented By: MABLE Vancomycin HCl 750 mg/ Sodium (Chloride) 265 mls @ 265 mls/hr IV Q12H [facility] Last Infusion: 12/23/21 03:33 Dose: 0 mls/hr Documented By: MABLE Sodium Chloride (Ns) 1,000 mls @ 125 mls/hr IVCONT .Q8H [facility] Last Admin: 12/23/21 02:13 Dose: 125 mls/hr Documented By: MABLE Methadone HCl (Methadone Hcl 20 Mg/2 Ml Oral.Conc) 30 mg PO DAILY [facility] Morphine Sulfate (Morphine Sulfate 2 Mg/Ml Cartridge) 2 mg IVPUSH Q4H PRN; Protocol PRN Reason: Pain, Severe (Pain Scale 7-10) Last Admin: 12/23/21 01:55 Dose: 2 mg Documented By: MABLE Oxycodone HCl (Oxycodone Hcl Immed Release 5 Mg Tablet) 5 mg PO Q4H PRN PRN Reason: Pain, Moderate (Pain Scale 4-6 Last Admin: 12/22/21 21:18 Dose: 5 mg Documented By: MABLE Pharmacy Consult (Consult Rx Vancomycin Dosing) 1 each MISCELLANE DAILY PRN PRN Reason: Consult order Labs CBC & Chem 7: 12/22/21 02:38 12/22/21 09:07 Labs: Laboratory Results - last 24 hr 12/22/21 12/22/21 12/22/21 09:07 09:07 09:07 PT 17.8 H INR 1.5 H APTT 32.3 Anion Gap 14 Estim Creat Clear Calc 71.9 Estimated GFR > 60 Random Glucose 126 H Calcium 7.9 L D Total Bilirubin 1.3 H Direct Bilirubin 0.8 H AST 29 D ALT 40 H Alkaline Phosphatase 87 Total Protein 5.7 L D Albumin 2.6 L D Hep Bs Antigen Negative Hep Bs Antibody NONREACTIVE Hep B Core Total Ab Nonreactive Hepatitis C Ab (EIA) Reactive H HIV 1&2 Ab/P24 Ag 4thGn Nonreactive Microbiology Microbiology Results: Microbiology 12/22/21 02:38 Blood Culture - Preliminary Blood - Venous Prelim: GPC Gram Stain only 12/22/21 02:38 Blood Culture - Preliminary Blood - Venous Prelim: GPC Gram Stain only 12/22/21 00:48 Gram Stain - Final Arm 12/22/21 00:28 Blood Culture - Final Blood - Venous 12/22/21 00:28 Blood Culture - Final Blood - Venous Assessment and Plan (1) Sepsis: Status: Acute (2) History of endocarditis: Status: Acute Plan 26 year old female with history of IV cocaine and heroin abuse, history of endocarditis presenting to the hospital with vague complaints admitted for sepsis Gram positive cocci bacteremia, chronic wound right forearm, and fever. #- Sepsis- possibly secondary to infected wound right forearm vs possible endocarditis Gram positive cocci bactermia--concern for MRSA -afebrile now -Continue Vanco and Zosyn D#2 -ID consult -Echo to rule endocarditis #-Chronic wound right forearm--see picture, -Surgery doesn't think wound is source of infection (I agree) and furthermore does not need debridment -CT wrist w/ contrast ordered to evaluate for gas or abscess -Continue Vanco and zosyn #-Back pain, she's has no neuro changes, no urinary or stool incontinence, I saw her walking across to comode without difficulty, she's saying she does't feel well today and will reconsider later, the importance of having this done was conveyed to her -MRI lumbar spine ordered r/o epidural abscess. She's refusing this. Continue IV abx as above -Oxycodone and morphine on pain scale #- Cocaine and opiate abuse -Seen by care team and addiction medicine and started on methadone 30mg daily -Elevated LFTs- Hepatitis B and C ordered. HIV ab ordered #-RUQ pain with elevated LFTs -Reports etoh consumtion 2-5 per day. CIWA assessment ordered -Hepatitis C +, Hep B pending, and HIV - -RUQ u/s:suugestive of hepatic steatosis.. see full report # coagulopathy d/t chronic liver disease, steatosis--no bleeding, monitor DVT prophylaxis- lovenox Full code Need for inpatient: IV Abx for bacteremia and endocrditis work up Quality Stroke Does the patient have a stroke diagnosis?: No VTE Prior VTE?: No VTE Risk Level:: Medical - moderate - high VTE Device Contraindication: Treatment Not Indicated VTE Drug Contraindication: N/A - Med Ordered
--- NOTE | 2021-12-23 08:09 | PM.PNGS ---
Subjective Subjective Date of Service: 12/24/21 Interval history: Says she does not feel well T-max of 102 last night, now afebrile Sitting on recliner and appears comfortable Physical Exam Vital Signs: Vital Signs: Last Vital Signs Temp 98.4 F 12/23/21 07:28 Pulse 88 12/23/21 07:28 Resp 17 12/23/21 07:28 BP 99/51 L 12/23/21 07:28 Pulse Ox 96 12/23/21 07:28 O2 Del Method 12/23/21 07:28 BMI result Body Mass Index 27.2 Const: Other: Appears comfortable General: no acute distress Resp: Effort & Inspection: normal respiratory effort Cardio: Rate: regular rate GI: Palpation (GI): Soft to palpation and nontender Extrem: Other: Dressings dry Objective Data Active Medications Acetaminophen (Acetaminophen 325 Mg Tablet) 650 mg PO Q6H PRN PRN Reason: Fever Last Admin: 12/22/21 21:18 Dose: 650 mg Documented By: MABLE Enoxaparin Sodium (Enoxaparin Sodium 40 Mg/0.4 Ml Syringe) 40 mg SUBCUT Q24H [facility] Last Admin: 12/22/21 13:47 Dose: 40 mg Documented By: LANETTEOPEOlvin Piperacillin Sod/Tazobactam (Sod 4.5 gm/ Sodium Chloride) 100 mls @ 200 mls/hr IV Q8H [facility] Last Infusion: 12/23/21 05:24 Dose: 0 mls/hr Documented By: MABLE Vancomycin HCl 750 mg/ Sodium (Chloride) 265 mls @ 265 mls/hr IV Q12H [facility] Last Infusion: 12/23/21 03:33 Dose: 0 mls/hr Documented By: MABLE Sodium Chloride (Ns) 1,000 mls @ 125 mls/hr IVCONT .Q8H [facility] Last Admin: 12/23/21 02:13 Dose: 125 mls/hr Documented By: MABLE Methadone HCl (Methadone Hcl 20 Mg/2 Ml Oral.Conc) 30 mg PO DAILY [facility] Morphine Sulfate (Morphine Sulfate 2 Mg/Ml Cartridge) 2 mg IVPUSH Q4H PRN; Protocol PRN Reason: Pain, Severe (Pain Scale 7-10) Last Admin: 12/23/21 01:55 Dose: 2 mg Documented By: MABLE Oxycodone HCl (Oxycodone Hcl Immed Release 5 Mg Tablet) 5 mg PO Q4H PRN PRN Reason: Pain, Moderate (Pain Scale 4-6 Last Admin: 12/22/21 21:18 Dose: 5 mg Documented By: MABLE Pharmacy Consult (Consult Rx Vancomycin Dosing) 1 each MISCELLANE DAILY PRN PRN Reason: Consult order Labs CBC & Chem 7: 12/22/21 02:38 12/23/21 14:02 Labs: Laboratory Results - last 24 hr 12/22/21 12/22/21 12/22/21 09:07 09:07 09:07 PT 17.8 H INR 1.5 H APTT 32.3 Anion Gap 14 Estim Creat Clear Calc 71.9 Estimated GFR > 60 Random Glucose 126 H Calcium 7.9 L D Total Bilirubin 1.3 H Direct Bilirubin 0.8 H AST 29 D ALT 40 H Alkaline Phosphatase 87 Total Protein 5.7 L D Albumin 2.6 L D Hep Bs Antigen Negative Hep Bs Antibody NONREACTIVE Hep B Core Total Ab Nonreactive Hepatitis C Ab (EIA) Reactive H HIV 1&2 Ab/P24 Ag 4thGn Nonreactive Microbiology Microbiology Results: Microbiology 12/22/21 02:38 Blood Culture - Preliminary Blood - Venous Prelim: GPC Gram Stain only 12/22/21 02:38 Blood Culture - Preliminary Blood - Venous Prelim: GPC Gram Stain only 12/22/21 00:48 Gram Stain - Final Arm 12/22/21 00:28 Blood Culture - Final Blood - Venous 12/22/21 00:28 Blood Culture - Final Blood - Venous Procedures Date of Service Date of Service: 12/23/21 Progress Note: A&P Assessment and plan (1) Wound of right upper extremity: Status: Acute Assessment and Plan: Plan to change dressings today with silver alginate Patient however refusing dressing change at this time Continue antibiotics Care as per hospitalist service Time Spent With Patient Time: Total time spent is greater than 50% in coordination of care (as documented) at patient's floor/unit and/or counseling patient: Quality Stroke Does the patient have a stroke diagnosis?: No VTE Prior VTE?: No VTE Risk Level:: Medical - moderate - high VTE Device Contraindication: Treatment Not Indicated VTE Drug Contraindication: N/A - Med Ordered
[2021-12-23] MEDS: oxyCODONE HCl Immed Release 5 MG TABLET PO (08:10)
[2021-12-23] MEDS: methADONE HCl 20 MG/2 ML ORAL.CONC 30 MG PO (08:11)
--- NOTE | 2021-12-23 08:22 | PC.NURSE ---
Patient still refusing labs at this time. Patient up ambulating to commode. c/o of 10 back pain. Productive cough.
--- NOTE | 2021-12-23 09:04 | PM.CNCAR ---
History of Present Illness History of Present Illness Date of Service: 12/23/21 Requesting physician: Jewel Nogueira Consult reason: other (Endocarditis, tricuspid regurgitation) Chief complaint: Sepsis, rule out endocarditis Narrative: I was consulted to see Vanda in cardiology consultation today for findings on echocardiogram shows severe tricuspid regurgitation along with tricuspid valve endocarditis with severely dilated right-sided chambers. Patient came to the hospital with sepsis like syndrome with fever and chills had some right upper quadrant discomfort and vomiting. She is continuing to vomiting. Her fever has been control. She has been managed aggressive with sepsis protocol. Blood cultures are positive for Staph species. Unfortunately she has history of prior tricuspid valve endocarditis but at that time she had only trivial to mild TR. She continues to unfortunately use IV drugs including in to her on heel wound on the right arm. She is denying any symptoms of shortness of breath, abdominal distention, leg edema. She denies any lightheadedness, syncope. She is currently getting appropriate antibiotics and fluid resuscitation Review of Systems Constitutional: Constitutional: Reports body ache(s), Reports chills, Reports fever(s), Reports malaise and Reports weakness Eyes: Eyes: Reports no additional eye complaints Cardiovascular: Cardiovascular: Reports no additional cardiovascular complaints Respiratory: Respiratory: Reports no additional respiratory complaints Gastrointestinal: Gastrointestinal: Reports no additional gastrointestinal complaints Genitourinary: Genitourinary: Reports no additional female genitourinary complaints Musculoskeletal: Musculoskeletal: Reports no additional musculoskeletal complaints Integumentary/Breasts: Skin/Breast: Reports system reviewed and no additional complaints, except as docu Neurologic: Reports system reviewed and no additional complaints, except as documented and Reports weakness Psychiatric: Psychiatric: Reports no additional psychiatric complaints [facility] Past Medical History Medical History (Updated 12/23/21 @ 09:10 by Nain Casanova MD) MELITON (acute kidney injury) Bacteremia Elevated blood pressure reading History of endocarditis Septic embolism Substance abuse Wound of right upper extremity Family History Family History (Updated 12/22/21 @ 12:43 by STEVEN Dan) Mother No problems noted. Father No problems noted. Social History Social History Household Members: None and Other Housing: Homeless Housing Other:: homeless but states staying with friends Do you presently have visiting nurse or other home services: No Unable to assess alcohol history related to: Refusing to respond Alcohol intake: current Alcohol intake frequency: 3 or more drinks per day Patient Tobacco Use Status: Current someday Tobacco user Tobacco use type: Cigarette Substance Use Type: Crack/Cocaine, Heroin, Marijuana and Opiates service: No Current occupational status: unemployed Meds Allergies Allergy/AdvReac Type Severity Reaction Status Date / Time No Known Allergies Allergy Verified 06/16/21 22:25 Active Medications: Current Medications Acetaminophen (Acetaminophen 325 Mg Tablet) 650 mg PO Q6H PRN PRN Reason: Fever Last Admin: 12/22/21 21:18 Dose: 650 mg Enoxaparin Sodium (Enoxaparin Sodium 40 Mg/0.4 Ml Syringe) 40 mg SUBCUT Q24H [facility] Last Admin: 12/22/21 13:47 Dose: 40 mg Piperacillin Sod/Tazobactam (Sod 4.5 gm/ Sodium Chloride) 100 mls @ 200 mls/hr IV Q8H [facility] Last Infusion: 12/23/21 05:24 Dose: Infused Vancomycin HCl 750 mg/ Sodium (Chloride) 265 mls @ 265 mls/hr IV Q12H [facility] Last Infusion: 12/23/21 03:33 Dose: Infused Sodium Chloride (Ns) 1,000 mls @ 125 mls/hr IVCONT .Q8H [facility] Last Infusion: 12/23/21 08:20 Dose: 125 mls/hr Methadone HCl (Methadone Hcl 20 Mg/2 Ml Oral.Conc) 30 mg PO DAILY [facility] Last Admin: 12/23/21 08:11 Dose: 30 mg Morphine Sulfate (Morphine Sulfate 2 Mg/Ml Cartridge) 2 mg IVPUSH Q4H PRN; Protocol PRN Reason: Pain, Severe (Pain Scale 7-10) Last Admin: 12/23/21 01:55 Dose: 2 mg Oxycodone HCl (Oxycodone Hcl Immed Release 5 Mg Tablet) 5 mg PO Q4H PRN PRN Reason: Pain, Moderate (Pain Scale 4-6 Last Admin: 12/23/21 08:10 Dose: 5 mg Pharmacy Consult (Consult Rx Vancomycin Dosing) 1 each MISCELLANE DAILY PRN PRN Reason: Consult order Home Medications Medication Instructions Recorded Confirmed Last Taken Type No Known Home Meds 12/22/21 12/22/21 Unknown History Physical Exam Vital Signs: Vital Signs: Last Vital Signs Temp 98.4 F 12/23/21 07:28 Pulse 88 12/23/21 07:28 Resp 17 12/23/21 07:28 BP 99/51 L 12/23/21 07:28 Pulse Ox 96 12/23/21 07:28 O2 Del Method 12/23/21 07:28 BMI result Body Mass Index 27.2 Const: General: cooperative, comfortable, no acute distress, alert, awake, poor hygiene and tired appearing Nutritional Appearance: underweight Orientation/consciousness: patient oriented x3 HEENT: Head: Yes normocephalic and Yes atraumatic Neck: Neck: Yes trachea midline, Yes supple and Yes no JVD ( prominent large V-waves with pulsating jugular venous pulse) Chest: Chest palpation & inspection: normal inspection of the chest Resp: Effort & Inspection: decreased respiratory effort Auscultation: diminished lung sounds Cardio: Jugular venous distension: other ( prominent V-wave and pulsating jugular venous pulse ) Palpation: abnormal PMI displaced PMI Rate: regular rate and tachycardic Rhythm: regular rhythm Heart sounds: S1 normal heart sound present, S2 normal heart sound present, no click, no gallops and Murmur heart sound present systolic early, soft, at the left sternal border and at the right sternal border GI: Auscultation: normal bowel sounds Skin: General skin exam: Excoriation and scars Neuro: General: patient oriented x3 and no focal motor deficits Objective Labs and Meds Result diagrams: 12/22/21 02:38 12/22/21 09:07 Lab results: Laboratory Results - last 24 hr 12/22/21 12/22/21 12/22/21 09:07 09:07 09:07 PT 17.8 H INR 1.5 H APTT 32.3 Sodium 129 L Potassium 3.4 Chloride 98 Carbon Dioxide 20 L Anion Gap 14 BUN 18 H D Creatinine 0.96 Estim Creat Clear Calc 71.9 Estimated GFR > 60 Random Glucose 126 H Calcium 7.9 L D Total Bilirubin 1.3 H Direct Bilirubin 0.8 H AST 29 D ALT 40 H Alkaline Phosphatase 87 Total Protein 5.7 L D Albumin 2.6 L D Hep Bs Antigen Negative Hep Bs Antibody NONREACTIVE Hep B Core Total Ab Nonreactive Hepatitis C Ab (EIA) Reactive H HIV 1&2 Ab/P24 Ag 4thGn Nonreactive Imaging Radiologist's impression: Impressions Abdomen Ultrasound 12/22/21 12:46 IMPRESSION: 1. Enlarged slightly echogenic liver suggesting hepatic steatosis. At the time of the prior chest CT from 2020, the attenuation of the liver with greater than spleen not suggestive of hepatic steatosis. 2. Gallbladder wall calcifications as described above. Assessment and Plan (1) Infective endocarditis of tricuspid valve: Status: Acute acute endocarditis of the tricuspid valve secondary to Staph species secondary to ongoing IV drug abuse which patient is unwilling to stop. She has developed significant tricuspid regurgitation due to them showed tricuspid valve with secondary severe right-sided chamber enlargement. Discussed the finding with the patient and need for intervention, surgically. Cannot be done at this hospital. However she absolutely declines to undergo any surgical interventions at this point time despite understanding that this could lead to congestive heart failure and . patient is also on willing to stop IV drug abuse and after tricuspid valve surgery as at extremely high risk of recurrent infection and . she definitely has poor understanding of her overall health condition. For now would continue supportive care along with aggressive treatment for her Staph infection. Prognosis is poor Will follow with you if need be Plan d/w Dr. Nogueira Procedures Date of Service Date of Service: 12/23/21
--- NOTE | 2021-12-23 10:34 | MHC.CLN ---
NUTRITION PATIENT WITH NON HEALING WOUND TO RIGHT FOREARM. NOT PRESSURE RELATED. PATIENT WITH PRIOR DX OF MALNUTRITION IN 04/14. SUSPECT HX POOR INTAKE DUE TO IVDA. ADDING ENSURE BID TO PROVIDE ADDITIONAL 700 KCALS, 40 G PROTEIN.
--- NOTE | 2021-12-23 11:33 | PC.NURSE ---
Patietn refusing MRI at this time.
[2021-12-23 12:00] VITALS: BP 106/57; PULSE 97; RESP 17; TEMP 37.6; O2SAT 96
--- NOTE | 2021-12-23 12:13 | MHC.RECOVRN ---
Attempted to meet with pt to follow up regarding methadone. Upon entering room, pt states with eyes closed Why does everyone keep coming in and out?! I just want to be left alone to sleep! Pt aware t/w will continue to follow.
[2021-12-23] MEDS: Acetaminophen 325 MG TABLET 650 MG PO ×2 (12:42→21:04)
[2021-12-23] MEDS: Enoxaparin Sodium 40 MG/0.4 ML SYRINGE SUBCUT (13:06)
--- NOTE | 2021-12-23 13:24 | MHC.CM.PN ---
CM ATTEMPTED TO MEET WITH PATIENT. UPON ENTERING PATIENT YELLED NO, NO, NO, DO NOT DISTURB, DO NOT DISTURB! PATIENT COVERED HER FACE WITH THE BLANKET.
--- NOTE | 2021-12-23 13:28 | P.CNID_ITS ---
History of Present Illness Data of Consult Service Date: 12/23/21 Requesting physician: Jewel Nogueira Primary Care Provider: Unknown Physician HPI Reason for consult: sepsis She presents to hospital with two days chills and tachycardia and sweats and feels like she has endocarditis again She continues to inject drugs into right arm. Wrist film is negative. She has staph species in blood. I had seen her in March 2021/April 2021 and she had MSSA and strep agalactiae in blood. She also had 2.7 cm vegetation on tricuspid valve. She was thought not to be a surgical candidate. Review of Systems Review of Systems: Yes all other systems are reviewed and are negative [facility] Past Medical History Medical History MELITON (acute kidney injury) Bacteremia Elevated blood pressure reading History of endocarditis Septic embolism Substance abuse Wound of right upper extremity Family History Family History Mother No problems noted. Father No problems noted. Family history: reviewed and not pertinent Social History Social History Household Members: None and Other Housing: Homeless Housing Other:: homeless but states staying with friends Do you presently have visiting nurse or other home services: No Unable to assess alcohol history related to: Refusing to respond Alcohol intake: current Alcohol intake frequency: 3 or more drinks per day Patient Tobacco Use Status: Current someday Tobacco user Tobacco use type: Cigarette Substance Use Type: Crack/Cocaine, Heroin, Marijuana and Opiates service: No Current occupational status: unemployed Meds Allergies Allergy/AdvReac Type Severity Reaction Status Date / Time No Known Allergies Allergy Verified 06/16/21 22:25 Active Medications: Current Medications Acetaminophen (Acetaminophen 325 Mg Tablet) 650 mg PO Q6H PRN PRN Reason: Fever Last Admin: 12/23/21 12:42 Dose: 650 mg Enoxaparin Sodium (Enoxaparin Sodium 40 Mg/0.4 Ml Syringe) 40 mg SUBCUT Q24H [facility] Last Admin: 12/23/21 13:06 Dose: 40 mg Piperacillin Sod/Tazobactam (Sod 4.5 gm/ Sodium Chloride) 100 mls @ 200 mls/hr IV Q8H [facility] Last Admin: 12/23/21 13:02 Dose: 200 mls/hr Vancomycin HCl 750 mg/ Sodium (Chloride) 265 mls @ 265 mls/hr IV Q12H [facility] Last Infusion: 12/23/21 03:33 Dose: Infused Sodium Chloride (Ns) 1,000 mls @ 125 mls/hr IVCONT .Q8H [facility] Last Admin: 12/23/21 12:44 Dose: 125 mls/hr Methadone HCl (Methadone Hcl 20 Mg/2 Ml Oral.Conc) 30 mg PO DAILY [facility] Last Admin: 12/23/21 08:11 Dose: 30 mg Morphine Sulfate (Morphine Sulfate 2 Mg/Ml Cartridge) 2 mg IVPUSH Q4H PRN; Protocol PRN Reason: Pain, Severe (Pain Scale 7-10) Last Admin: 12/23/21 01:55 Dose: 2 mg Oxycodone HCl (Oxycodone Hcl Immed Release 5 Mg Tablet) 5 mg PO Q4H PRN PRN Reason: Pain, Moderate (Pain Scale 4-6 Last Admin: 12/23/21 08:10 Dose: 5 mg Pharmacy Consult (Consult Rx Vancomycin Dosing) 1 each MISCELLANE DAILY PRN PRN Reason: Consult order Home Medications Medication Instructions Recorded Confirmed Last Taken Type No Known Home Meds 12/22/21 12/22/21 Unknown History Physical Exam Vital Signs: Vital Signs: Last Vital Signs Temp 99.6 F 12/23/21 12:00 Pulse 97 12/23/21 12:00 Resp 17 12/23/21 12:00 BP 106/57 L 12/23/21 12:00 Pulse Ox 96 12/23/21 12:00 O2 Del Method 12/23/21 12:00 BMI result Body Mass Index 27.2 Const: General: cooperative HEENT: Head: Yes normal to inspection Face and sinus: Yes normal facial exam Mouth: Normal oral and palatal mucosa present Teeth and gingiva: dentition normal Eyes: General: appearance normal, both eyes and all related structures Pupils: Equal, round and reactive pupils present Resp: Effort & Inspection: normal respiratory effort Cardio: Rate: regular rate Rhythm: regular rhythm GI: Palpation (GI): Soft to palpation and nontender : General: Yes no CVA tenderness Back/Spine/Pelvis: Back: no CVA tenderness Skin: General skin exam: no rashes or lesions noted Neuro: General: moves all extremities Cranial nerves: Yes Equal, round and reactive pupils present Extrem: Other: right arm swelling and pain back pain when moves forward left flank Psych: Appearance: grossly normal Results Labs CBC & Chem 7: 12/22/21 02:38 12/22/21 09:07 Microbiology Microbiology Results: Microbiology 12/22/21 00:48 Arm Gram Stain - Final 12/22/21 00:48 Arm Routine Culture - Preliminary Culture in progress. 12/22/21 02:38 Blood - Venous Blood Culture - Preliminary Staphylococcus species 12/22/21 02:38 Blood - Venous Blood Culture - Preliminary Staphylococcus species 12/22/21 00:28 Blood - Venous Blood Culture - Final 12/22/21 00:28 Blood - Venous Blood Culture - Final Assessment and Plan (1) Sepsis: Status: Acute Sepsis is likely due to staph bacteremia,probable MSSA. She has had allergic rash reaction before to Kefzol and was switched to Daptomycin for six weeks ,but not sure if completed course. She likely has tricuspid endocarditis again She refused MRI of LS spine ,and maybe she has osteomyelitis. Opioid use disorder is contributory to above (2) History of endocarditis: Status: Acute (3) Back pain: Status: Acute (4) Cocaine use disorder, severe, dependence: Status: Acute (5) Opioid use disorder, severe, dependence: Status: Acute Plan Continue Vancomycin. May stop Zosyn as staph identified. Would probably need to change Vancomycin to Daptomycin as outpatient daily dosing when goes to facility for 6-8 weeks. She refused MRI so probably can get CT scan.. Methadone clinic as outpatient,peer counselor.
--- NOTE | 2021-12-23 14:24 | PM.EVENT ---
Event Note Date of Service: 12/23/21 Event Note: I had seen the patient afternoon to change her dressings Again, she says she did not want her dressings changed She stated that she did not want to be ?bothered I did explain to her that it would be best to be able to change her dressings She continues to refuse Would recommend silver alginate dressings once she allows
[2021-12-23 14:34] LABS: Alanine Aminotransferase 28 U/L (0-31); Albumin Level 2.5 g/dL (3.5-5.0); Alkaline Phosphatase 84 U/L (39-117); Anion Gap 13 (12-20); Aspartate Amino Transferase 21 U/L (5-31); Bilirubin Total 0.7 mg/dL (0.0-1.0); Blood Urea Nitrogen 11 mg/dL (9-16); Calcium 7.9 mg/dL (8.4-10.2); Carbon Dioxide 20 mmol/L (22-29); Chloride 103 mmol/L (96-108); Creatinine Clr Calc Pharmacy 93.2; Estimated Glomerular Filt Rate > 60; Glucose Random 114 mg/dL (60-115); Potassium 3.3 mmol/L (3.3-5.1); Sodium 133 mmol/L (135-145); Total Protein 5.7 g/dL (6.5-8.0)
[2021-12-23 14:39] LABS: Vancomycin Trough 6.8 mcg/mL (10.0-20.0)
--- NOTE | 2021-12-23 14:52 | HE.PHANOTE ---
Vancomycin Dosing Addendum Today trough was subtherapeutic at 6.8 as patient's renal function improved. Will increase dose to vancomycin 1250 mg Q12H. Will get another level in 24 hours to make any necessary adjustments. Patient blood cultures postivie for staph species therefore it is important to get patient into therapeutic ranges. Kesha Rachel, PharmD
[2021-12-23 15:36] VITALS: BP 104/52; PULSE 98; RESP 18; TEMP 37; O2SAT 97
[2021-12-23] MEDS: vancomycin HCL 1,250 MG in 0.9 % Sodium Chloride 250 ML 166.67 MG IV (15:39)
--- NOTE | 2021-12-23 15:51 | PC.NURSE ---
Patient resting in NAD. Appears comfortable. Denies pain at this time. Breathing is unlabored.
[2021-12-23 19:09] VITALS: BP 96/59; PULSE 84; RESP 18; TEMP 36.5; O2SAT 98
[2021-12-23 23:15] VITALS: BP 113/58; PULSE 105; RESP 18; TEMP 37.9; O2SAT 94
[2021-12-24] MEDS: Morphine Sulfate 2 MG/ML CARTRIDGE IVPUSH ×4 (03:26→19:20)
[2021-12-24] MEDS: vancomycin HCL 1,250 MG in 0.9 % Sodium Chloride 250 ML 166 MG IV (03:26)
[2021-12-24] MEDS: 0.9 % Sodium Chloride 1,000 ML 125 ML IVCONT ×2 (03:30→15:25)
[2021-12-24 03:57] VITALS: BP 111/60; PULSE 77; RESP 18; TEMP 36.4; O2SAT 97
[2021-12-24] MEDS: methADONE HCl 20 MG/2 ML ORAL.CONC 30 MG PO (07:39)
[2021-12-24] MEDS: Acetaminophen 325 MG TABLET 650 MG PO ×2 (07:48→22:48)
[2021-12-24 07:52] VITALS: BP 103/65; PULSE 82; RESP 17; TEMP 36.8; O2SAT 93
--- NOTE | 2021-12-24 08:38 | PM.PNGS ---
Subjective Subjective Date of Service: 12/24/21 Interval history: No new complaints No events reported Physical Exam Vital Signs: Vital Signs: Last Vital Signs Temp 98.3 F 12/24/21 07:52 Pulse 82 12/24/21 07:52 Resp 17 12/24/21 07:52 BP 103/65 12/24/21 07:52 Pulse Ox 93 12/24/21 07:52 O2 Del Method 12/24/21 07:52 BMI result Body Mass Index 27.2 Const: General: comfortable and no acute distress Resp: Effort & Inspection: normal respiratory effort Cardio: Rate: regular rate GI: Palpation (GI): Soft to palpation and not firm Extrem: Other: Right forearm with open wound as described, with good granulation, small fibrinous exudates, no pus Objective Data Active Medications Acetaminophen (Acetaminophen 325 Mg Tablet) 650 mg PO Q6H PRN PRN Reason: Fever Last Admin: 12/24/21 07:48 Dose: 650 mg Documented By: KATIE Enoxaparin Sodium (Enoxaparin Sodium 40 Mg/0.4 Ml Syringe) 40 mg SUBCUT Q24H [facility] Last Admin: 12/23/21 13:06 Dose: 40 mg Documented By: ISRAEL Sodium Chloride (Ns) 1,000 mls @ 125 mls/hr IVCONT .Q8H [facility] Last Admin: 12/24/21 03:30 Dose: 125 mls/hr Documented By: MABLE Vancomycin HCl 1,250 mg/ (Sodium Chloride) 250 mls @ 166.667 mls/hr IV Q12H [facility] Last Infusion: 12/24/21 06:28 Dose: 0 mls/hr Documented By: MABLE Methadone HCl (Methadone Hcl 20 Mg/2 Ml Oral.Conc) 30 mg PO DAILY [facility] Last Admin: 12/24/21 07:39 Dose: 30 mg Documented By: KATIE Morphine Sulfate (Morphine Sulfate 2 Mg/Ml Cartridge) 2 mg IVPUSH Q4H PRN; Protocol PRN Reason: Pain, Severe (Pain Scale 7-10) Last Admin: 12/24/21 07:50 Dose: 2 mg Documented By: KATIE Oxycodone HCl (Oxycodone Hcl Immed Release 5 Mg Tablet) 5 mg PO Q4H PRN PRN Reason: Pain, Moderate (Pain Scale 4-6 Last Admin: 12/23/21 08:10 Dose: 5 mg Documented By: ISRAEL Pharmacy Consult (Consult Rx Vancomycin Dosing) 1 each MISCELLANE DAILY PRN PRN Reason: Consult order Labs CBC & Chem 7: 12/22/21 02:38 12/23/21 14:02 Labs: Laboratory Results - last 24 hr 12/23/21 12/23/21 14:02 14:02 Anion Gap 13 Estim Creat Clear Calc 93.2 Estimated GFR > 60 Random Glucose 114 Calcium 7.9 L Total Bilirubin 0.7 AST 21 ALT 28 Alkaline Phosphatase 84 Total Protein 5.7 L Albumin 2.5 L Vancomycin Trough 6.8 L Microbiology Microbiology Results: Microbiology 12/22/21 00:48 Gram Stain - Final Arm Routine Culture - Preliminary Culture in progress. 12/22/21 02:38 Blood Culture - Preliminary Blood - Venous Staphylococcus species 12/22/21 02:38 Blood Culture - Preliminary Blood - Venous Staphylococcus species Procedures Date of Service Date of Service: 12/24/21 Progress Note: A&P Assessment and plan (1) Wound of right upper extremity: Status: Acute Assessment and Plan: She allowed me to change dressings today I applied silver alginate dressings Wrapped the forearm with Jossie roll Continue dressing changes with silver alginate Wound actually clean good granulation Time Spent With Patient Time: Total time spent is greater than 50% in coordination of care (as documented) at patient's floor/unit and/or counseling patient: Quality Stroke Does the patient have a stroke diagnosis?: No VTE Prior VTE?: No VTE Risk Level:: Medical - moderate - high VTE Device Contraindication: Treatment Not Indicated VTE Drug Contraindication: N/A - Med Ordered
--- NOTE | 2021-12-24 09:24 | HO.PM.IMPN ---
Subjective Subjective Date of Service: 12/24/21 Interval History: Follow-up on sepsis, bacteremia, concern for endocarditis. Interval history: has no new complaint although she is saying that she will likely leave either today or tomorrow and furthermoer doesn't want MRI of back. Last blood cultures from yesterday are positive. Review of Systems no fever back pain Physical Exam Vital Signs: Vital Signs: Last Vital Signs Temp 98.3 F 12/24/21 07:52 Pulse 82 12/24/21 07:52 Resp 17 12/24/21 07:52 BP 103/65 12/24/21 07:52 Pulse Ox 93 12/24/21 07:52 O2 Del Method 12/24/21 07:52 BMI result Body Mass Index 27.2 Const: General: comfortable and no acute distress Orientation/consciousness: patient oriented x3 Neck: Neck: Yes no lymphadenopathy Resp: Auscultation: clear to auscultation bilaterally Cardio: Rhythm: regular rhythm GI: Palpation (GI): Soft to palpation, nontender and no guarding Skin: Other: see pictures from H and P Neuro: General: patient oriented x3 Objective Data Active Medications Acetaminophen (Acetaminophen 325 Mg Tablet) 650 mg PO Q6H PRN PRN Reason: Fever Last Admin: 12/24/21 07:48 Dose: 650 mg Documented By: KATIE Enoxaparin Sodium (Enoxaparin Sodium 40 Mg/0.4 Ml Syringe) 40 mg SUBCUT Q24H [facility] Last Admin: 12/23/21 13:06 Dose: 40 mg Documented By: ISRAEL Sodium Chloride (Ns) 1,000 mls @ 125 mls/hr IVCONT .Q8H [facility] Last Admin: 12/24/21 03:30 Dose: 125 mls/hr Documented By: MABLE Vancomycin HCl 1,250 mg/ (Sodium Chloride) 250 mls @ 166.667 mls/hr IV Q12H [facility] Last Infusion: 12/24/21 06:28 Dose: 0 mls/hr Documented By: MABLE Methadone HCl (Methadone Hcl 20 Mg/2 Ml Oral.Conc) 30 mg PO DAILY [facility] Last Admin: 12/24/21 07:39 Dose: 30 mg Documented By: KATIE Morphine Sulfate (Morphine Sulfate 2 Mg/Ml Cartridge) 2 mg IVPUSH Q4H PRN; Protocol PRN Reason: Pain, Severe (Pain Scale 7-10) Last Admin: 12/24/21 07:50 Dose: 2 mg Documented By: KATIE Oxycodone HCl (Oxycodone Hcl Immed Release 5 Mg Tablet) 5 mg PO Q4H PRN PRN Reason: Pain, Moderate (Pain Scale 4-6 Last Admin: 12/23/21 08:10 Dose: 5 mg Documented By: ISRAEL Pharmacy Consult (Consult Rx Vancomycin Dosing) 1 each MISCELLANE DAILY PRN PRN Reason: Consult order Labs CBC & Chem 7: 12/22/21 02:38 12/23/21 14:02 Labs: Laboratory Results - last 24 hr 12/23/21 12/23/21 14:02 14:02 Anion Gap 13 Estim Creat Clear Calc 93.2 Estimated GFR > 60 Random Glucose 114 Calcium 7.9 L Total Bilirubin 0.7 AST 21 ALT 28 Alkaline Phosphatase 84 Total Protein 5.7 L Albumin 2.5 L Vancomycin Trough 6.8 L Microbiology Microbiology Results: Microbiology 12/23/21 14:02 Blood Culture - Preliminary Blood - Venous Prelim: GPC Gram Stain only 12/22/21 02:38 Blood Culture - Final Blood - Venous Staphylococcus aureus 12/22/21 02:38 Blood Culture - Final Blood - Venous Staphylococcus aureus 12/22/21 00:48 Gram Stain - Final Arm Routine Culture - Preliminary Culture in progress. Assessment and Plan (1) Sepsis: Status: Acute (2) History of endocarditis: Status: Acute Plan 26 year old female with history of IV cocaine and heroin abuse, history of endocarditis presenting to the hospital with vague complaints admitted for sepsis Gram positive cocci bacteremia, chronic wound right forearm, and fever. #- Sepsis- due to endocarditis Gram positive cocci bactermia--concern for MRSA -afebrile, last culture from 12/23 is positive -Continue ENA Reid -ID consult -Echo: ?1. Severe tricuspid regurgitation secondary to tricuspid valve endocarditis ? -will discuss with cardiology if need to be refer to Cardiac surgery? #-Chronic wound right forearm--see picture, -Surgery doesn't think wound is source of infection (I agree) and furthermore does not need debridment -CT wrist w/ contrast ordered to evaluate for gas or abscess #-Back pain, she's has no neuro changes, no urinary or stool incontinence, I saw her walking across to [place] without difficulty, she continues to refuse MRI Continue IV abx as above -Oxycodone and morphine on pain scale #- Cocaine and opiate abuse -Seen by care team and addiction medicine and started on methadone 30mg daily -Elevated LFTs- Hepatitis B and C ordered. HIV ab ordered #-RUQ pain with elevated LFTs -Reports etoh consumtion 2-5 per day. CIWA assessment ordered -Hepatitis C +, Hep B pending, and HIV - -RUQ u/s:suugestive of hepatic steatosis.. see full report # coagulopathy d/t chronic liver disease, steatosis--no bleeding, monitor DVT prophylaxis- lovenox Full code Need for inpatient: IV Abx for endocrditis Quality Stroke Does the patient have a stroke diagnosis?: No VTE Prior VTE?: No VTE Risk Level:: Medical - moderate - high VTE Device Contraindication: Treatment Not Indicated VTE Drug Contraindication: N/A - Med Ordered
--- NOTE | 2021-12-24 09:44 | MHC.CM.PN ---
PATIENT AWARE NOT FULLY AWAKE PATIENT IS HOMELESS/STAYING WITH FRIENDS DECLINED HCP; INDEPENDENT/NO SERVICES DIDN'T RESPOND TO RECEIVING AND OUD TX WILL WALK UPON DISCHARGE NO FURTHER QUESTIONS ANSWERED D/C PLAN COMMUNITY/FRIEND'S HOUSE vs [facility] RECOMMENDATION
[2021-12-24 11:16] VITALS: BP 104/66; PULSE 72; RESP 15; TEMP 35.6; O2SAT 94
[2021-12-24 14:02] LABS: Creatinine Clr Calc Pharmacy 87.4; Estimated Glomerular Filt Rate > 60
[2021-12-24 14:08] LABS: Vancomycin Trough 19.3 mcg/mL (10.0-20.0)
--- NOTE | 2021-12-24 14:16 | HE.PHANOTE ---
{VANCO ADDENDUM} Trough came back at 19.3mg/L; decreased dose to 1g Q12H with another trough to be drawn 12/25/21 @1300. Renal function is stable
[2021-12-24] MEDS: vancomycin HCL 1,000 MG in 0.9 % Sodium Chloride 250 ML 270 MG IV (15:25)
[2021-12-24] MEDS: oxyCODONE HCl Immed Release 5 MG TABLET PO ×2 (15:34→22:48)
--- NOTE | 2021-12-24 15:40 | MHC.RECOVRN ---
Attempted to meet with pt, pt declined to speak with t/w.
[2021-12-24 16:00] VITALS: BP 119/83; PULSE 87; RESP 16; TEMP 37.7; O2SAT 97
[2021-12-24 18:50] VITALS: BP 116/77; PULSE 83; RESP 16; TEMP 38.3; O2SAT 95
[2021-12-24 23:15] VITALS: BP 119/74; PULSE 104; RESP 16; TEMP 38.2; O2SAT 95
[2021-12-25] VITALS (7 sets, daily range): BP systolic 124–143; BP diastolic 68–87; PULSE 84–93; RESP 15–18; TEMP 36.6–37.8; O2SAT 92–96
[2021-12-25] MEDS: Morphine Sulfate 2 MG/ML CARTRIDGE IVPUSH ×3 (00:44→23:58)
[2021-12-25] MEDS: vancomycin HCL 1,000 MG in 0.9 % Sodium Chloride 250 ML 270 MG IV ×2 (03:09→15:18)
[2021-12-25] MEDS: oxyCODONE HCl Immed Release 5 MG TABLET PO ×2 (03:16→19:18)
[2021-12-25] MEDS: methADONE HCl 20 MG/2 ML ORAL.CONC 30 MG PO (08:16)
--- NOTE | 2021-12-25 09:01 | P.PNIM_ITS ---
Subjective Subjective Date of Service: 12/25/21 Interval History: Follow-up on sepsis, bacteremia, concern for endocarditis. Interval history: has nausea and vomitting and doesn't feel good Review of Systems no fever no back pain Physical Exam Vital Signs: Vital Signs: Last Vital Signs Temp 100.0 F 12/25/21 07:40 Pulse 93 12/25/21 07:40 Resp 18 12/25/21 07:40 BP 143/68 H 12/25/21 07:40 Pulse Ox 95 12/25/21 07:40 O2 Del Method 12/25/21 07:40 BMI result Body Mass Index 27.2 Const: General: comfortable and no acute distress Orientation/consciousness: patient oriented x3 Neck: Neck: Yes no lymphadenopathy Resp: Auscultation: clear to auscultation bilaterally Cardio: Rhythm: regular rhythm GI: Palpation (GI): Soft to palpation, nontender and no guarding Skin: Other: see pictures from H and P Neuro: General: patient oriented x3 Objective Data Active Medications Acetaminophen (Acetaminophen 325 Mg Tablet) 650 mg PO Q6H PRN PRN Reason: Fever Last Admin: 12/24/21 22:48 Dose: 650 mg Documented By: BERENICE Enoxaparin Sodium (Enoxaparin Sodium 40 Mg/0.4 Ml Syringe) 40 mg SUBCUT Q24H [facility] Last Admin: 12/24/21 13:09 Dose: Not Given Documented By: KATIE Non-Admin Reason: Patient Refused Vancomycin HCl 1,000 mg/ (Sodium Chloride) 270 mls @ 270 mls/hr IV Q12H [facility] Last Infusion: 12/25/21 04:18 Dose: 0 mls/hr Documented By: LALO Methadone HCl (Methadone Hcl 20 Mg/2 Ml Oral.Conc) 30 mg PO DAILY [facility] Last Admin: 12/25/21 08:16 Dose: 30 mg Documented By: KATIE Morphine Sulfate (Morphine Sulfate 2 Mg/Ml Cartridge) 2 mg IVPUSH Q4H PRN; Protocol PRN Reason: Pain, Severe (Pain Scale 7-10) Last Admin: 12/25/21 00:44 Dose: 2 mg Documented By: LALO Oxycodone HCl (Oxycodone Hcl Immed Release 5 Mg Tablet) 5 mg PO Q4H PRN PRN Reason: Pain, Moderate (Pain Scale 4-6 Last Admin: 12/25/21 03:16 Dose: 5 mg Documented By: LALO Pharmacy Consult (Consult Rx Vancomycin Dosing) 1 each MISCELLANE DAILY PRN PRN Reason: Consult order Labs CBC & Chem 7: 12/22/21 02:38 12/24/21 13:39 Labs: Laboratory Results - last 24 hr 12/24/21 12/24/21 13:39 13:39 Estim Creat Clear Calc 87.4 Estimated GFR > 60 Vancomycin Trough 19.3 Microbiology Microbiology Results: Microbiology 12/23/21 14:02 Blood Culture - Final Blood - Venous Staphylococcus aureus 12/23/21 14:02 Blood Culture - Final Blood - Venous Staphylococcus aureus 12/22/21 00:48 Gram Stain - Final Arm Routine Culture - Final Escherichia coli Staphylococcus aureus 12/22/21 02:38 Blood Culture - Final Blood - Venous Staphylococcus aureus 12/22/21 02:38 Blood Culture - Final Blood - Venous Staphylococcus aureus Assessment and Plan (1) Sepsis: Status: Acute (2) History of endocarditis: Status: Acute Plan 26 year old female with history of IV cocaine and heroin abuse, history of endocarditis presenting to the hospital with vague complaints admitted for sepsis Gram positive cocci bacteremia, chronic wound right forearm, and fever. #- Sepsis- due to endocarditis Gram positive cocci bactermia--concern for MRSA -afebrile, last culture from 12/23 is positive -repeat cultures today -Continue ENA Reidsyn -ID consult -Echo: ?1. Severe tricuspid regurgitation secondary to tricuspid valve endocarditis. Dr. Casanova discussed with her with the following remarks Discussed the finding with the patient and need for intervention, surgically.? Cannot be done at this hospital.? However she absolutely declines to undergo any surgical interventions at this point time despite understanding that this could lead to congestive heart failure and . I also discussed this with her and arrived at the same conculusion? #-Chronic wound right forearm--see picture, -Surgery doesn't think wound is source of infection (I agree), had bedside debr idment by Dr. Chowdhury 12/23 #-Back pain, she's has no neuro changes, no urinary or stool incontinence, I saw her walking across to [facility] without difficulty, she continues to refuse MRI despite understanding this is to identified any possible spinal infection that may need further testing/intervention and could lead to neuro complications, paralysis or even Continue IV abx as above -Oxycodone and morphine on pain scale #- Cocaine and opiate abuse -Seen by care team and addiction medicine and started on methadone 30mg daily -Elevated LFTs- Hepatitis B and C ordered. HIV ab ordered #-RUQ pain with elevated LFTs -Reports etoh consumtion 2-5 per day. CIWA assessment ordered -Hepatitis C +, Hep B pending, and HIV - -RUQ u/s:suugestive of hepatic steatosis.. see full report # coagulopathy d/t chronic liver disease, steatosis--no bleeding, monitor #Depression --Psych consult DVT prophylaxis- lovenox Full code Need for inpatient: IV Abx for endocrditis Quality Stroke Does the patient have a stroke diagnosis?: No VTE Prior VTE?: No VTE Risk Level:: Medical - moderate - high VTE Device Contraindication: Treatment Not Indicated VTE Drug Contraindication: N/A - Med Ordered
--- NOTE | 2021-12-25 10:06 | MHC.CM.PN ---
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 CM WILL PLACE REFERRALS IN ANTIC PT BE AGREEABLE, PT ON METHADONE 30MG DAILY AND REFERRALS WILL BE PLACED TO [facility], CM WILL CONT TO FOLLOW D/C NEEDS.
--- NOTE | 2021-12-25 10:49 | P.CDIC_ITS ---
CDI Concurrent Query Documentation Clarification: PHYSICIAN'S DOCUMENTATION REQUEST Date of Query: 12/25/21 1052 Patient Name: Vanda Ch Admit Date: 12/22/21 Dear Doctor, A review of the medical record indicates additional documentation may be needed. Please review below and update the documentation accordingly. Clinical Indicators: The following diagnoses or signs and symptoms were noted in the patient record: Is there a diagnosis that correlates with these lab findings below: Risk Factors/Clinical Indicators/Treatments No Hx of HCV noted. Per provider note on 12/24: Pt with elevated LFTs & RUQ pain. LABS: Total Bilirubin - 1.3 Direct Bilirubin - 0.8 ALT - 40 VITALS: Temperature - 100.9 on 12/24 Based on the above, could you clarify in the Progress Notes the appropriate diagnosis, if significant, that supports the above abnormalities and additional evaluation, monitoring, and/or treatment rendered: l * Acute Hepatitis C * Chronic Hepatitis C * Labs indicate a diagnosis of (please specify) * Other (please specify) * Unable to determine Use of terms such as suspected, likely, concern for, or probable (associated with a specific diagnosis that is being evaluated, monitored, or treated as if it exists) are acceptable and can be coded in the inpatient setting, when documented at the time of discharge. Thank you, Peggy Peacock MS, RN, CCRN Extension: [phone] Please use your independent medical judgment in providing your response. THIS QUERY IS PART OF THE PERMANENT MEDICAL RECORD Provider Response: Other Other Diagnosis: chronic hepatitis C
--- NOTE | 2021-12-25 11:03 | P.CDIC_ITS ---
CDI Concurrent Query Documentation Clarification: PHYSICIAN'S DOCUMENTATION REQUEST Date of Query: 12/25/21 1102 Patient Name: Vanda Ch Admit Date: 12/22/21 Dear Doctor, A review of the medical record indicates additional documentation may be needed. Please review below and update the documentation accordingly. Clinical Indicators: The following diagnoses or signs and symptoms were noted in the patient record: Is there a diagnosis that correlates with these lab findings below: Risk Factors/Clinical Indicators/Treatments LABS: 12/22: Sodium - 129 12/23: Sodium - 133 Based on the above, could you clarify in the Progress Notes the appropriate diagnosis, if significant, that supports the above abnormalities and additional evaluation, monitoring, and/or treatment rendered: * Hyponatremia * Labs indicate a diagnosis of (please specify) * Other (please specify) * Unable to determine Use of terms such as suspected, likely, concern for, or probable (associated with a specific diagnosis that is being evaluated, monitored, or treated as if it exists) are acceptable and can be coded in the inpatient setting, when documented at the time of discharge. Thank you, Peggy Peacock MS, RN, CCRN Extension: [phone] Please use your independent medical judgment in providing your response. THIS QUERY IS PART OF THE PERMANENT MEDICAL RECORD Provider Response: Other Other Diagnosis: hyponatremia
--- NOTE | 2021-12-25 11:08 | P.CDIC_ITS ---
CDI Concurrent Query Documentation Clarification: PHYSICIAN'S DOCUMENTATION REQUEST Date of Query: 12/25/21 1108 Patient Name: Vanda Ch Admit Date: 12/22/21 Dear Doctor, A review of the medical record indicates additional documentation may be needed. Please review below and update the documentation accordingly. Clinical Indicators: The following diagnoses or signs and symptoms were noted in the patient record: Is there a diagnosis that correlates with these lab findings below: Risk Factors/Clinical Indicators/Treatments LABS: 12/22: Albumin - 2.6 12/23: Albumin - 2.5 Based on the above, could you clarify in the Progress Notes the appropriate diagnosis, if significant, that supports the above abnormalities and additional evaluation, monitoring, and/or treatment rendered: * Hypoalbuminemia * Labs indicate a diagnosis of (please specify) * Other (please specify) * Unable to determine Use of terms such as suspected, likely, concern for, or probable (associated with a specific diagnosis that is being evaluated, monitored, or treated as if it exists) are acceptable and can be coded in the inpatient setting, when documented at the time of discharge. Thank you, Peggy Peacock, MS, RN, CCRN Extension: [phone] Please use your independent medical judgment in providing your response. THIS QUERY IS PART OF THE PERMANENT MEDICAL RECORD Provider Response: Other Other Diagnosis: * Hypoalbuminemia
[2021-12-25] MEDS: Enoxaparin Sodium 40 MG/0.4 ML SYRINGE SUBCUT (14:02)
--- NOTE | 2021-12-25 14:18 | HE.PHANOTE ---
[ vanco addendum] Pt is currently refusing labs, but renal function has been stable. Will continue with 1000mg Q12H and try for another trough at 1300 tomorrow on 12/26/21
--- NOTE | 2021-12-25 15:49 | PM.IDPN ---
Subjective Subjective Date of Service: 12/25/21 Critical Care Time (minutes): 15 Comment: she is sleepy she declines Vancomycin levels Objective Data Labs CBC & Chem 7: 12/22/21 02:38 12/24/21 13:39 Microbiology Microbiology Results: Microbiology 12/23/21 14:02 Blood - Venous Blood Culture - Final Staphylococcus aureus 12/23/21 14:02 Blood - Venous Blood Culture - Final Staphylococcus aureus 12/22/21 00:48 Arm Gram Stain - Final 12/22/21 00:48 Arm Routine Culture - Final Escherichia coli Staphylococcus aureus 12/22/21 02:38 Blood - Venous Blood Culture - Final Staphylococcus aureus 12/22/21 02:38 Blood - Venous Blood Culture - Final Staphylococcus aureus 12/22/21 00:28 Blood - Venous Blood Culture - Final 12/22/21 00:28 Blood - Venous Blood Culture - Final Physical Exam Vital Signs: Vital Signs: Last Vital Signs Temp 98.1 F 12/25/21 11:37 Pulse 89 12/25/21 11:37 Resp 15 12/25/21 11:37 BP 129/77 12/25/21 11:37 Pulse Ox 93 12/25/21 11:37 O2 Del Method 12/25/21 11:37 BMI result Body Mass Index 27.2 Const: General: cooperative HEENT: Head: Yes normal to inspection Mouth: Normal oral and palatal mucosa present Resp: Effort & Inspection: normal respiratory effort Cardio: Rate: regular rate Rhythm: regular rhythm GI: Palpation (GI): Soft to palpation and nontender Skin: General skin exam: no rashes or lesions noted Assessment and Plan Assessment and plan (1) History of endocarditis: Problem details: She has persistent MSSA bacteremia with allergy to Kefzol,rash She is declining Vancomycin blood draws Status: Acute (2) Sepsis: Status: Acute Plan Would change to Daptomycin since persistent bacteremia for four weeks likely. Bacteremia will likely recur since continues use IVDU and is working on addiction. Time Spent With Patient Time: Total time spent is greater than 50% in coordination of care (as documented) at patient's floor/unit and/or counseling patient:
--- NOTE | 2021-12-25 20:07 | P.CNPS_ITS ---
History of Present Illness Date of Service: 12/26/2021 Chief Complaint: Sepsis, rule out endocarditis Reason for Consult: Medication, Capacity Requesting physician: Jewel Nogueira Sources of Information: patient interviewed and chart reviewed HPI Narrative: Patient is a 26 year old female with history of OUD, IV cocaine and heroin use, currently medically admitted with chronic arm wound and possible endocarditis, sepsis, Gram positive cocci bacteremia, chronic wound right forearm, and fever. Per addiction consult, pt restarted on methadone maintenance.? Psych consult placed for depression, pt refusing interventions/ care, wants to leave AMA I attempted to evaluate the pt this evening, however she adamantly states ?Im not depressed.? Pt is irritable, laughing in passive aggressive manner, says ?Im getting the fuck out of here tomorrrow and I cant be any happier.? Then states, ?I dont want to talk to u, thats all I have to say.? Past Psychiatric History: -Pt denies past hx of psych hospitalizations. No OP psych services. [facility] Medical History MELITON (acute kidney injury) Bacteremia Elevated blood pressure reading History of endocarditis Septic embolism Substance abuse Wound of right upper extremity Diagnostics Vital Signs (24Hr): Vital Signs - 24 hr 12/24/21 23:15 12/25/21 00:40 12/25/21 00:44 Temperature 100.7 F H 98.1 F Pulse Rate 104 H Respiratory Rate 16 18 Blood Pressure 119/74 Pulse Oximetry 95 Oxygen Delivery Method Room Air 12/25/21 03:20 12/25/21 07:40 12/25/21 11:37 Temperature 97.8 F 100.0 F 98.1 F Pulse Rate 90 93 89 Respiratory Rate 16 18 15 Blood Pressure 124/78 143/68 H 129/77 Pulse Oximetry 96 95 93 Oxygen Delivery Method Room Air Room Air Room Air 12/25/21 15:55 12/25/21 20:00 Temperature 98.8 F 99.2 F Pulse Rate 84 85 Respiratory Rate 16 16 Blood Pressure 139/87 132/84 Pulse Oximetry 92 96 Oxygen Delivery Method Room Air Room Air BMI result Body Mass Index 27.2 Labs Results: 12/22/21 02:38 12/24/21 13:39 Labs: Laboratory Results - last 48 hr 12/24/21 12/24/21 13:39 13:39 Creatinine 0.79 Estim Creat Clear Calc 87.4 Estimated GFR > 60 Vancomycin Trough 19.3 Imaging Radiology Impressions: ITS Impressions Chest X-Ray 12/22/21 01:32 IMPRESSION: Trace right pleural effusion Low lung volumes and bibasilar subsegmental atelectasis. Abdomen Ultrasound 12/22/21 12:46 IMPRESSION: 1. Enlarged slightly echogenic liver suggesting hepatic steatosis. At the time of the prior chest CT from 2020, the attenuation of the liver with greater than spleen not suggestive of hepatic steatosis. 2. Gallbladder wall calcifications as described above. Wrist CT 12/22/21 13:39 IMPRESSION: Findings consistent with chronic cellulitis and ulceration along the radial aspect of the distal forearm. No evidence of abscess formation or adjacent osteomyelitis. Mental Status Exam Mental Status Exam Narrative: A&O. Pt is lying down, hospital attire, hygiene okay, normal body habitus. Poor eye contact, attentive. No Tics or Tremors. No abnormal involuntary movements. Pt is uncooperative, irritable. Non-pressured speech, spontaneous with regular rate and rhythm, normal volume and prosody. No prolonged speech latency or dysarthria. Mood is [refuses to state], affect is constricted. Denies SI/SIB/HI upon inquiry. Denies A/VH or delusional thought content. Thoughts are goal o riented on wanting to go home. No known cognitive or memory impairment. Insight/ Judgment limited but adequate. Medications Medications Current Medications Acetaminophen (Acetaminophen 325 Mg Tablet) 650 mg PO Q6H PRN PRN Reason: Fever Last Admin: 12/24/21 22:48 Dose: 650 mg Enoxaparin Sodium (Enoxaparin Sodium 40 Mg/0.4 Ml Syringe) 40 mg SUBCUT Q24H [facility] Last Admin: 12/25/21 14:02 Dose: 40 mg Daptomycin 500 mg/ Sodium (Chloride) 60 mls @ 100 mls/hr IV Q24H [facility] Methadone HCl (Methadone Hcl 20 Mg/2 Ml Oral.Conc) 30 mg PO DAILY [facility] Last Admin: 12/25/21 08:16 Dose: 30 mg Morphine Sulfate (Morphine Sulfate 2 Mg/Ml Cartridge) 2 mg IVPUSH Q4H PRN; Protocol PRN Reason: Pain, Severe (Pain Scale 7-10) Last Admin: 12/25/21 14:04 Dose: 2 mg Oxycodone HCl (Oxycodone Hcl Immed Release 5 Mg Tablet) 5 mg PO Q4H PRN PRN Reason: Pain, Moderate (Pain Scale 4-6 Last Admin: 12/25/21 19:18 Dose: 5 mg Pharmacy Consult (Consult Rx Vancomycin Dosing) 1 each MISCELLANE DAILY PRN PRN Reason: Consult order Allergies Allergies Allergy/AdvReac Type Severity Reaction Status Date / Time cefazolin Allergy Rash Verified 12/25/21 15:52 Assessment & Plan Assessment & Plan (1) Sepsis: Status: Acute Code(s): A41.9 - Sepsis, unspecified organism (2) Cocaine use disorder, severe, dependence: Status: Acute Code(s): F14.20 - Cocaine dependence, uncomplicated (3) Opioid use disorder, severe, dependence: Status: Acute Code(s): F11.20 - Opioid dependence, uncomplicated Plan Plan: Pt is unwilling to engage in clinical interview, unable to assess for depression or intiate treatment as pt refused. Pt is familiar to T/W for similar consult in 03/2021, in which pt wanted to leave AMA- during this admission, pt was deemed to have capacity for medical decisions, as she understands her medical condition and the sequela of leaving AMA. She again is able to demonstrate an understanding of the risks and benefits of leaving AMA. Although pt does not have study rationale for her decision making, she is not delirious, demented, or psychotic and thus continues to have capacity to make treatment d ecisions. Not able to contact any family or friends, as pt denies having supports and refused permission for T/W to speak with anyone. Pt denies past hx of psych treatment or hx of IPLOC for depression.? Thank you for this consultation. If you have any questions or concerns, please do not hesitate to contact psychiatry service. I spent minutes with the patient and/or on the patient floor today, greater than?50% of which was spent counseling/coordinating care. Patient educated on: other
[2021-12-25] MEDS: DAPTOmycin 500 MG in 0.9 % Sodium Chloride 50 ML 100 MG IV (20:08)
[2021-12-26] MEDS: oxyCODONE HCl Immed Release 5 MG TABLET PO ×2 (03:07→19:26)
[2021-12-26 04:00] VITALS: BP 135/62; PULSE 75; RESP 17; TEMP 37.2; O2SAT 96
[2021-12-26 07:56] VITALS: BP 131/69; PULSE 101; RESP 19; TEMP 37.8; O2SAT 94
[2021-12-26] MEDS: Acetaminophen 325 MG TABLET 650 MG PO (08:20)
[2021-12-26] MEDS: methADONE HCl 20 MG/2 ML ORAL.CONC 30 MG PO (08:21)
--- NOTE | 2021-12-26 08:53 | PM.EVENT ---
Event Note Date of Service: 12/26/21 Event Note: came to see pt for dressing change adn wound check she refused dressing change today stated she did not want to be bothered continue silver alginate dressings daily on open wound on left forearm
--- NOTE | 2021-12-26 09:43 | P.PNIM_ITS ---
Subjective Subjective Date of Service: 12/26/21 Interval History: Follow-up on sepsis, bacteremia, concern for endocarditis. Interval history: she feels better, still thinking about leaving A and has been refusing lab draws. Review of Systems no fever no back pain Physical Exam Vital Signs: Vital Signs: Last Vital Signs Temp 100.0 F 12/26/21 07:56 Pulse 101 H 12/26/21 07:56 Resp 19 12/26/21 07:56 BP 131/69 12/26/21 07:56 Pulse Ox 94 12/26/21 07:56 O2 Del Method 12/26/21 07:56 BMI result Body Mass Index 27.2 Const: General: comfortable and no acute distress Orientation/consciousness: patient oriented x3 Neck: Neck: Yes no lymphadenopathy Resp: Auscultation: clear to auscultation bilaterally Cardio: Rhythm: regular rhythm GI: Palpation (GI): Soft to palpation, nontender and no guarding Skin: Other: see pictures from H and P Neuro: General: patient oriented x3 Objective Data Active Medications Acetaminophen (Acetaminophen 325 Mg Tablet) 650 mg PO Q6H PRN PRN Reason: Fever Last Admin: 12/26/21 08:20 Dose: 650 mg Documented By: VIDYA Enoxaparin Sodium (Enoxaparin Sodium 40 Mg/0.4 Ml Syringe) 40 mg SUBCUT Q24H [facility] Last Admin: 12/25/21 14:02 Dose: 40 mg Documented By: KATIE Daptomycin 500 mg/ Sodium (Chloride) 60 mls @ 100 mls/hr IV Q24H [facility] Last Infusion: 12/25/21 20:59 Dose: 0 mls/hr Documented By: KEVIN Methadone HCl (Methadone Hcl 20 Mg/2 Ml Oral.Conc) 30 mg PO DAILY [facility] Last Admin: 12/26/21 08:21 Dose: 30 mg Documented By: VIDYA Morphine Sulfate (Morphine Sulfate 2 Mg/Ml Cartridge) 2 mg IVPUSH Q4H PRN; Protocol PRN Reason: Pain, Severe (Pain Scale 7-10) Last Admin: 12/25/21 23:58 Dose: 2 mg Documented By: KEVIN Oxycodone HCl (Oxycodone Hcl Immed Release 5 Mg Tablet) 5 mg PO Q4H PRN PRN Reason: Pain, Moderate (Pain Scale 4-6 Last Admin: 12/26/21 03:07 Dose: 5 mg Documented By: KEVIN Pharmacy Consult (Consult Rx Vancomycin Dosing) 1 each MISCELLANE DAILY PRN PRN Reason: Consult order Labs CBC & Chem 7: 12/22/21 02:38 12/24/21 13:39 Microbiology Microbiology Results: Microbiology 12/23/21 14:02 Blood Culture - Final Blood - Venous Staphylococcus aureus 12/23/21 14:02 Blood Culture - Final Blood - Venous Staphylococcus aureus 12/22/21 00:48 Gram Stain - Final Arm Routine Culture - Final Escherichia coli Staphylococcus aureus Assessment and Plan (1) Sepsis: Status: Acute (2) History of endocarditis: Status: Acute Plan 26 year old female with history of IV cocaine and heroin abuse, history of endocarditis presenting to the hospital with vague complaints admitted for sepsis Gram positive cocci bacteremia, chronic wound right forearm, and fever. 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 Severe tricuspid regurgitation secondary to tricuspid valve endocarditis. Dr. Casanova discussed with her with the following remarks Discussed the finding with the patient and need for intervention, surgically.? Cannot be done at this hospital.? However she absolutely declines to undergo any surgical interventions at this point time despite understanding that this could lead to congestive heart failure and . I also discussed this with her and arrived at the same conculusion? #-Chronic wound right forearm--see picture, -Surgery doesn't think wound is source of infection (I agree), had bedside debridment by Dr. Chowdhury 12/23 #-Back pain, she's has no neuro changes, no urinary or stool incontinence, I saw her walking across to [facility] without difficulty, she continues to refuse MRI d espite understanding this is to identified any possible spinal infection that may need further testing/intervention and could lead to neuro complications, paralysis or even Continue IV abx as above -Oxycodone and morphine on pain scale #- Cocaine and opiate abuse -Seen by care team and addiction medicine and started on methadone 30mg daily -Elevated LFTs- Hepatitis B and C ordered. HIV ab ordered #-RUQ pain with elevated LFTs -Reports etoh consumtion 2-5 per day. CIWA assessment ordered -Hepatitis C +, Hep B pending, and HIV - -RUQ u/s:suugestive of hepatic steatosis.. see full report # coagulopathy d/t chronic liver disease, steatosis--no bleeding, monitor #Depression --Psych consult #Hyponatremia--chronic #hypoalbumenemia #chronic hepatitis C DVT prophylaxis- lovenox Full code Need for inpatient: IV Abx for endocrditis Quality Stroke Does the patient have a stroke diagnosis?: No VTE Prior VTE?: No VTE Risk Level:: Medical - moderate - high VTE Device Contraindication: Treatment Not Indicated VTE Drug Contraindication: N/A - Med Ordered
--- NOTE | 2021-12-26 09:52 | MHC.RECOVRN ---
Briefly met with pt in 347 to discuss methadone dose. Upon entering, pt in bed, asleep. Wakes to voice. Pt reports desire to continue with methadone, denies withdrawal symptoms at this time. When asked how pt is feeling, pt states hot. Pt informs t/w she is not discharging today. Declines further discussion. Will continue to follow.
[2021-12-26 11:56] VITALS: BP 117/64; PULSE 70; RESP 18; TEMP 36.8; O2SAT 92
[2021-12-26 15:48] VITALS: BP 125/80; PULSE 79; RESP 18; TEMP 36.6; O2SAT 95
[2021-12-26 19:20] VITALS: BP 136/94; PULSE 92; RESP 20; TEMP 37.1; O2SAT 97
[2021-12-26] MEDS: DAPTOmycin 500 MG in 0.9 % Sodium Chloride 50 ML 100 MG IV (19:23)
[2021-12-26 23:57] VITALS: BP 135/80; PULSE 85; RESP 18; TEMP 36.7; O2SAT 97
[2021-12-27] VITALS (7 sets, daily range): BP systolic 108–130; BP diastolic 58–82; PULSE 69–88; RESP 16–18; TEMP 36–37.7; O2SAT 94–96
[2021-12-27] MEDS: Acetaminophen 325 MG TABLET 650 MG PO (02:48)
--- NOTE | 2021-12-27 07:50 | P.PNIM_ITS ---
Subjective Subjective Date of Service: 12/27/21 Interval History: Follow-up on sepsis, bacteremia, concern for endocarditis. Interval history: she feels better, saying she will consider blood drawas later today Review of Systems no fever no back pain Physical Exam Vital Signs: Vital Signs: Last Vital Signs Temp 98.1 F 12/27/21 03:56 Pulse 85 12/27/21 03:56 Resp 18 12/27/21 03:56 BP 118/61 12/27/21 03:56 Pulse Ox 94 12/27/21 03:56 O2 Del Method 12/27/21 03:56 BMI result Body Mass Index 27.2 Const: Other: General: AO X 3, no acute distress Resp: CTA bilateral CVS: S1,S2,RRR GI: +BS, NT, no distention Skin: No rash, wound intact Neuro: motor grossly intact Psych: appropriate affect Objective Data Active Medications Acetaminophen (Acetaminophen 325 Mg Tablet) 650 mg PO Q6H PRN PRN Reason: Fever Last Admin: 12/27/21 02:48 Dose: 650 mg Documented By: KEVIN Enoxaparin Sodium (Enoxaparin Sodium 40 Mg/0.4 Ml Syringe) 40 mg SUBCUT Q24H [facility] Last Admin: 12/26/21 12:24 Dose: Not Given Documented By: VIDYA Non-Admin Reason: Patient Refused Daptomycin 500 mg/ Sodium (Chloride) 60 mls @ 100 mls/hr IV Q24H [facility] Last Infusion: 12/26/21 20:01 Dose: 0 mls/hr Documented By: KEVIN Methadone HCl (Methadone Hcl 20 Mg/2 Ml Oral.Conc) 30 mg PO DAILY [facility] Last Admin: 12/26/21 08:21 Dose: 30 mg Documented By: VIDYA Morphine Sulfate (Morphine Sulfate 2 Mg/Ml Cartridge) 2 mg IVPUSH Q4H PRN; Pr otocol PRN Reason: Pain, Severe (Pain Scale 7-10) Last Admin: 12/25/21 23:58 Dose: 2 mg Documented By: KEVIN Oxycodone HCl (Oxycodone Hcl Immed Release 5 Mg Tablet) 5 mg PO Q4H PRN PRN Reason: Pain, Moderate (Pain Scale 4-6 Last Admin: 12/26/21 19:26 Dose: 5 mg Documented By: KEVIN Pharmacy Consult (Consult Rx Vancomycin Dosing) 1 each MISCELLANE DAILY PRN PRN Reason: Consult order Labs CBC & Chem 7: 12/22/21 02:38 12/24/21 13:39 Assessment and Plan (1) Sepsis: Status: Acute (2) History of endocarditis: Status: Acute Plan 26 year old female with history of IV cocaine and heroin abuse, history of endocarditis presenting to the hospital with vague complaints admitted for sepsis Gram positive cocci bacteremia, chronic wound right forearm, and fever. 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 Severe tricuspid regurgitation secondary to tricuspid valve endocarditis. Dr. Casanova discussed with her with the following remarks Discussed the finding with the patient and need for intervention, surgically.? Cannot be done at this hospital.? However she absolutely declines to undergo any surgical interventions at this point time despite understanding that this could lead to congestive heart failure and . I also discussed this with her and arrived at the same conculusion? #-Chronic wound right forearm--see picture, -Surgery doesn't think wound is source of infection (I agree), had bedside debridment by Dr. Chowdhury 12/23 #-Back pain, she's has no neuro changes, no urinary or stool incontinence, I saw her walking across to [facility] without difficulty, she continues to refuse MRI despite understanding this is to identified any possible spinal infection that may need further testing/intervention and could lead to neuro complications, paralysis or even Continue IV abx as above -Oxycodone and morphine on pain scale #- Cocaine and opiate abuse -Seen by care team and addiction medicine and started on methadone 30mg daily -Elevated LFTs- Hepatitis B and C ordered. HIV ab ordered #-RUQ pain with elevated LFTs -Reports etoh consumtion 2-5 per day. CIWA assessment ordered -Hepatitis C +, Hep B pending, and HIV - -RUQ u/s:suugestive of hepatic steatosis.. see full report # coagulopathy d/t chronic liver disease, steatosis--no bleeding, monitor #Depression --Psych consult #Hyponatremia--chronic #hypoalbumenemia #chronic hepatitis C DVT prophylaxis- lovenox Full code Need for inpatient: IV Abx for endocrditis Quality Stroke Does the patient have a stroke diagnosis?: No VTE Prior VTE?: No VTE Risk Level:: Medical - moderate - high VTE Device Contraindication: Treatment Not Indicated VTE Drug Contraindication: N/A - Med Ordered
[2021-12-27] MEDS: methADONE HCl 20 MG/2 ML ORAL.CONC 30 MG PO (08:21)
[2021-12-27 11:07] LABS: Creatinine Clr Calc Pharmacy 87.4; Estimated Glomerular Filt Rate > 60
--- NOTE | 2021-12-27 12:58 | MHC.RECOVRN ---
Attempted to meet with pt in 347, pt declined to speak with t/w.
--- NOTE | 2021-12-27 21:46 | PC.NURSE ---
PT lost IV access and is refusing new IV to be inserted, PT had Daptomycin due at 1900, MD Browne notified, order to try again. PT was approached 3x in a matter of 3 hrs by 3 different people and PT still refusing.
[2021-12-28 04:00] VITALS: BP 130/75; PULSE 81; RESP 17; TEMP 36.5; O2SAT 95
[2021-12-28] MEDS: methADONE HCl 20 MG/2 ML ORAL.CONC 30 MG PO (08:36)
--- NOTE | 2021-12-28 09:13 | PM.DS ---
DS: Providers Provider Date of Service: 12/28/21 Date of admission: 12/22/21 07:45 Primary care physician: Unknown Physician Consults: 12/22/21 12:30 Consult to General Surgery Routine Consulting Provider: Burak Chowdhury Reason for consultation: chronic right forearm wound, ?debridement Has provider been notified: No 12/22/21 17:12 Consult to Cardiology Routine Consulting Provider: Nain Casanova Reason for consultation: infective endocarditis 12/23/21 07:29 Consult to Infectious Diseases Routine Consulting Provider: Corie Penaloza Reason for consultation: sepsis, bacteremia Has provider been notified: No 12/25/21 09:07 Consult to Psychiatry Routine Consulting Provider: Psych Covering Reason for consultation: Depression, refusing care Has provider been notified: No DS: Diagnosis Discharge Diagnosis (1) Sepsis: Status: Resolved (2) History of endocarditis: Status: Inactive DS: Summary Hospital Course Hospital Course: This patient with history of substance abuse, IVDA, history of endocarditis and not compliant with treatment was admitted again with sepsis, staph aureus endocarditis and bacteremia, wound on the hand. She was treated with IV Vancomycin initially but she was refusing blood draws to safely monitor vanco levels and other blood work, repeat culture so ID recommended Daptomycin which did not require level check. Patient was seen by cardiology because of tricuspid valve involvement and was offered referral to cardiac thoracic surgery for evaluation for surgery but she declined this see Dr. Casanova's note for detail. Overall plan was for the patient to have senior living antibiotics with for 6 weeks once blood cultures were clear but she resisted most blood draws. of note she also c/o of back pain to which an MRI was requested but she refused to go.. she does not have any neurological deficit, no urinary or stool incontinence.. In the end she decided to leave against medical advise as she feels better. I strongly advised her not to leave to which she said it was her choice and she accepts that her condition can further deteliorate without appropriate treatment with IV antibiotics and can leave to sepsis, and .. She is a sound mind at this time, alert oriented to self, place and time and awareness of the situation and able to repeat the conversation back in her own words and still proceed to leave AMA. To this effect I also had Psych to see her earlier and not deemed to be incompentent. oral antibiotics are not proven or recommended to be alternate treatment for endocarditis and at any event she didn't want them Time Spent with Patient Time attestation: Total time spent providing and/or coordinating discharge services: Discharge coordination time: Greater than 30 minutes Quality: Safe Use of Opioids Does Pt have an Active Cancer Diagnosis on the Problem List?: No Quality: Stroke Does the patient have a stroke diagnosis?: No Physical Exam Vital Signs: Vital Signs: Last Vital Signs Temp 97.7 F 12/28/21 04:00 Pulse 81 12/28/21 04:00 Resp 17 12/28/21 04:00 BP 130/75 12/28/21 04:00 Pulse Ox 95 12/28/21 04:00 O2 Del Method 12/28/21 04:00 BMI result Body Mass Index 27.2 DS: Data Data Completed and Pending Labs on day of discharge: Laboratory Results - last 24 hr 12/27/21 09:44 Creatinine 0.79 Estim Creat Clear Calc 87.4 Estimated GFR > 60 Discharge Plan Discharge Anticipated Discharge Date/Time: 12/28/21 09:03 Patient Disposition: Left Against Medical Advice Discharge Diagnosis: Sepsis, endocarditis, bacteremia, subtance abuse Referrals: Burak Chowdhury MD [Physician] - 2 Weeks Physician,Gilson Norris [Primary Care Provider] - 1 Week Discharge Medications: No Action No Known Home Meds Discharge Orders: Discharge Order (Routine); Ordered 12/28/21 Ordered By: Jewel Nogueira Diet: Advance to usual diet Activity on Discharge: As tolerated Care Plan Goals: left ama Health Concerns: left ama Plan of Treatment: left ama Assessment: left ama Discharge Date/Time: 12/28/21 13:14
[2021-12-28 11:19] VITALS: BP 122/64; PULSE 58; RESP 16; TEMP 36.4; O2SAT 98
== END 2021-12-28 13:14 | disposition left against medical advice (07) | DRG 720 ==
LOC: HO.ED 12-22 05:15 → HO.EDOVER 12-22 07:48 → HO.S3 12-22 19:44
PROVIDERS: Physician Assistant; Admitting Provider Internal Medicine; Emergency Provider Emergency Medicine; Visit Provider Internal Medicine
DX: A41.01 Sepsis due to Methicillin susceptible Staphylococcus aureus (principal); I33.0 Acute and subacute infective endocarditis; D68.4 Acquired coagulation factor deficiency; K76.0 Fatty (change of) liver, not elsewhere classified; E87.1 Hypo-osmolality and hyponatremia; E88.09 Other disorders of plasma-protein metabolism, not elsewhere classified; B18.2 Chronic viral hepatitis C; I07.1 Rheumatic tricuspid insufficiency; F11.20 Opioid dependence, uncomplicated; L03.115 Cellulitis of right lower limb; F14.20 Cocaine dependence, uncomplicated; F32.A Depression, unspecified; F17.210 Nicotine dependence, cigarettes, uncomplicated; M86.9 Osteomyelitis, unspecified; M54.9 Dorsalgia, unspecified; B95.61 Methicillin susceptible Staphylococcus aureus infection as the cause of diseases classified elsewhere; Z20.822 Contact with and (suspected) exposure to COVID-19; Z71.6 Tobacco abuse counseling; Z88.1 Allergy status to other antibiotic agents; Z59.01 Sheltered homelessness; Z91.19 Patient's noncompliance with other medical treatment and regimen
CPT/HCPCS: 36415; 71045; 73200; 76705; 80053; 80202; 82248; 82565; 83605; 85025; 85610; 85652; 85730; 86704; 86706; 86803; 87040; 87071; 87077; 87147; 87186; 87205; 87340; 87389; 87635; 93005; 93306; 96365; 96366; 96367; 96375; 99285; J0878; J1650; J2270; J2543; J3370

== ENCOUNTER 2022-01-20 19:22 | Inpatient (IN) | payer OTHER, SELFPAY ==
--- NOTE | ~2022-01-20 | XR_ITS ---
EXAMINATION: XR CHEST CLINICAL INFORMATION: s/p ett, ogt, and tlc placement COMPARISON: Chest radiograph yesterday TECHNIQUE: Frontal view of the chest was obtained. FINDINGS: Since yesterday's study, an ET tube has been placed with its tip 2 cm above the maddy. A right IJ catheter has its tip IVC RA junction. Gastric tube has its tip in the stomach. There is new bibasilar atelectasis. There is mild cardiac enlargement. A tiny right effusion could be present. No gross consolidations or lung masses. XR/XR chest 1V IMPRESSION: Lines and tubes in good position.
--- NOTE | ~2022-01-20 | XR_ITS ---
EXAMINATION: XR CHEST CLINICAL INFORMATION: Hypotension COMPARISON: Prior chest x-ray November 2021 TECHNIQUE: Frontal view of the chest was obtained. FINDINGS: Lungs and pleural spaces: Question subtle patchy opacity in the right perihilar region Minimal linear opacities at the bases similar to prior likely reflecting atelectasis. Cardiac mediastinal silhouette normal. Bone and soft tissues unremarkable XR/XR chest 1V IMPRESSION: Question subtle opacities in the right hilar region may simple reflect atelectasis or vascular markings. Minimal bibasilar opacities likely unchanged and represent atelectasis or minimal scarring.
--- NOTE | 2022-01-20 19:51 | ED.GENADULT ---
HPI - General Adult General Chief complaint: Dizziness Stated complaint: R ARM WOUND,RECENT INF,LEFT AMA RECENTLY PER EMS Time Seen by Provider: 01/20/22 19:31 History of Present Illness HPI narrative: Patient 26 years old with history of IVDA cocaine fentanyl opiate history of endocarditis Staph aureus bacteremia recently admitted for right forearm wound left AMA on 12/28 comes back as not feeling good and the foul smell coming from the right forearm wound blood pressure systolic in 70s complaining of subjective fever for last few days with chills and weakness Related Data Home Medications Medication Instructions Recorded Confirmed No Known Home Meds 12/22/21 01/20/22 Allergies Allergy/AdvReac Type Severity Reaction Status Date / Time cefazolin Allergy Rash Verified 12/25/21 15:52 Review of Systems Review of Systems: Yes all other systems are reviewed and are negative PMF Past Medical History Medical History MELITON (acute kidney injury) Bacteremia Cocaine use disorder, severe, dependence Elevated blood pressure reading Fever History of endocarditis Opioid use disorder, severe, dependence Septic embolism Substance abuse Wound of right upper extremity Family History Family History Mother No problems noted. Father No problems noted. Social History Social History Household Members: None and Other Housing: Homeless Housing Other:: homeless but states staying with friends Do you presently have visiting nurse or other home services: No Unable to assess alcohol history related to: Refusing to respond Alcohol intake: current Alcohol intake frequency: 3 or more drinks per day Alcohol type: beer Patient Tobacco Use Status: Current everyday Tobacco user Tobacco use type: Cigarette Substance Use Type: Crack/Cocaine and Heroin Substance Use Type Other:: Fentanyl Substance Use Frequency: Daily Last Used Substance: Hours (ago) Advance Directives: No Advance Directives Information Provided: No Patient : No service: No Current occupational status: unemployed Physical Exam ED Vital Signs: Vital Signs - 24 hr 01/20/22 20:26 01/20/22 21:25 01/20/22 21:41 Temperature 99.5 F 98.3 F Pulse Rate 97 84 82 Respiratory Rate 36 H 31 H 30 H Blood Pressure 76/34 L 72/35 L 83/42 L Pulse Oximetry 95 95 98 Oxygen Delivery Method Room Air Room Air Room Air Appearance: Alert. Oriented X3. No acute distress. Eyes: PERRLA, No Nystagmus ENT: Pharynx normal. Oral Mucosa moist Neck: Normal inspection. Neck supple. CVS: Normal heart rate and rhythm. No murmur rub or gallop Pulses normal. Respiratory: No respiratory distress. Equal air entry bilateral, no wheezing/rales/rhonchi Abdomen: Soft and nontender. Bowel sounds are present, no mass palpable, no CVA tenderness Skin: Skin warm and dry. Normal skin color. Normal skin turgor. Extremities: No lower extremity edema. No calf tenderness right forearm with open wound on the right wrist foul smelling discharge Neuro: Oriented X 3. No motor deficit. No sensory deficit.No cerebellar signs , cranial nerves II-XII intact Extrem Other: Medical Decision Making MDM Narrative Medical decision making narrative: [id number] Patient with infected right forearm wound with history of bacteremia, endocarditis with hypotension , MELITON meeting the criteria for sepsis patient received 2 L of IV fluid IV antibiotic blood pressure still low 80s systolic blood pressure will give her L of normal saline case discussed with interventional radiologist will admit to ICU planning to start on Neosynephrine drip patient refused central line at this time, focused exam for sepsis was done at 21:30 Medical Records Medical records reviewed: Yes I reviewed the patient's medical records. Lab Data Lab results reviewed: Yes I reviewed the patient's lab results. Result diagrams: 01/20/22 20:00 01/20/22 20:00 Labs: Lab Results 01/20/22 01/20/22 01/20/22 Range/Units 20:00 20:00 20:00 WBC 12.4 H (4.8-10.8) X10*3/uL RBC 4.22 (4.20-5.50) X10*6/uL Hgb 11.1 L (12.0-16.0) g/dl Hct 34.3 L (37.0-47.0) % MCV 81.3 (80.0-98.0) fL MCH 26.3 L (27.0-33.0) pg MCHC 32.4 (31.0-35.0) g/dl RDW 15.3 (11.0-16.0) % Plt Count 153 L D (160-400) X10*3/uL MPV 10.0 (9.4-12.3) fL Immature Gran % (Auto) 1.2 H (0.0-0.4) % Neut % (Auto) 76.1 H (45-73) % Lymph % (Auto) 11.4 L (20-40) % [place] % (Auto) 11.0 (2-11) % Eos % (Auto) 0.1 (0-4) % Baso % (Auto) 0.2 (0-2) % Lymph # (Auto) 1.4 (1.2-4.9) X10*3/uL [place] # (Auto) 1.4 H (0.1-1.2) X10*3/uL Eos # (Auto) 0.0 (0.0-0.4) X10*3/uL Baso # (Auto) 0.0 (0.0-0.2) X10*3/uL Abs Immat Gran (auto) 0.15 H (0.00-0.03) X10*3/uL Absolute Neuts (auto) 9.5 H (2.0-8.3) x10*3/uL Absolute Nucleated RBC 0.000 (0.0-0.012) X10*3/uL Nucleated RBC % (auto) 0.0 (0.0-0.2) /100WBC Sodium 127 L (135-145) mmol/L Potassium 3.5 (3.3-5.1) mmol/L Chloride 94 L (96-108) mmol/L Carbon Dioxide 13 L (22-29) mmol/L Anion Gap 24 H (12-20) BUN 41 H D (9-16) mg/dL Creatinine 2.45 H (0.5-1.4) mg/dL Estim Creat Clear Calc TNP Estimated GFR 24 Random Glucose 110 (60-115) mg/dL Lactic Acid 2.3 H* (0.5-2.0) mmol/L Calcium 8.4 D (8.4-10.2) mg/dL Magnesium 1.8 (1.6-2.6) mg/dL Total Bilirubin 0.7 (0.0-1.0) mg/dL AST 19 (5-31) U/L ALT 8 (0-31) U/L Alkaline Phosphatase 72 (39-117) U/L Total Protein 7.3 D (6.5-8.0) g/dL Albumin 3.2 L D (3.5-5.0) g/dL COVID-19 ([facility]) (Negative) COVID-19 Clin Com 01/20/22 Range/Units 20:03 WBC (4.8-10.8) X10*3/uL RBC (4.20-5.50) X10*6/uL Hgb (12.0-16.0) g/dl Hct (37.0-47.0) % MCV (80.0-98.0) fL MCH (27.0-33.0) pg MCHC (31.0-35.0) g/dl RDW (11.0-16.0) % Plt Count (160-400) X10*3/uL MPV (9.4-12.3) fL Immature Gran % (Auto) (0.0-0.4) % Neut % (Auto) (45-73) % Lymph % (Auto) (20-40) % [place] % (Auto) (2-11) % Eos % (Auto) (0-4) % Baso % (Auto) (0-2) % Lymph # (Auto) (1.2-4.9) X10*3/uL [place] # (Auto) (0.1-1.2) X10*3/uL Eos # (Auto) (0.0-0.4) X10*3/uL Baso # (Auto) (0.0-0.2) X10*3/uL Abs Immat Gran (auto) (0.00-0.03) X10*3/uL Absolute Neuts (auto) (2.0-8.3) x10*3/uL Absolute Nucleated RBC (0.0-0.012) X10*3/uL Nucleated RBC % (auto) (0.0-0.2) /100WBC Sodium (135-145) mmol/L Potassium (3.3-5.1) mmol/L Chloride (96-108) mmol/L Carbon Dioxide (22-29) mmol/L Anion Gap (12-20) BUN (9-16) mg/dL Creatinine (0.5-1.4) mg/dL Estim Creat Clear Calc Estimated GFR Random Glucose (60-115) mg/dL Lactic Acid (0.5-2.0) mmol/L Calcium (8.4-10.2) mg/dL Magnesium (1.6-2.6) mg/dL Total Bilirubin (0.0-1.0) mg/dL AST (5-31) U/L ALT (0-31) U/L Alkaline Phosphatase (39-117) U/L Total Protein (6.5-8.0) g/dL Albumin (3.5-5.0) g/dL COVID-19 ([facility]) Negative (Negative) COVID-19 Clin Com See Note Critical Care Time Critical Care Time Critical Care Time: Yes Total Critical Care Time: 65 Attestation: I spent 65 minutes of critical care, with interventions, assessments, speaking to patient, consultants, and family. Discharge Plan Discharge Clinical Impression: Sepsis, Bacteremia, Acute kidney injury, Metabolic acidosis Patient Disposition: Admitted As Inpatient
--- NOTE | 2022-01-20 19:53 | ECG_ITS ---
Test Reason : DIZZINESS Blood Pressure : / mmHG Vent. Rate : 106 BPM Atrial Rate : 106 BPM P-R Int : 142 ms QRS Dur : 092 ms QT Int : 334 ms P-R-T Axes : 039 104 026 degrees QTc Int : 443 ms Sinus tachycardia with Premature supraventricular complexes Rightward axis Low voltage QRS Borderline ECG When compared with ECG of 22-DEC-2021 00:27, No significant change was found Referred By: Guy Villavicencio Electronically Signed By:ELVIA NOLAN
--- NOTE | 2022-01-20 20:05 | PC.NURSE ---
Pt.'s father Macario Quijanose calling to speak with pt. Pt. Vanda gave me verbal permission to speak with father and asked to use ED portable phone to speak with her father herself. Portable phone provided and pt. speaking with Macario at this time
[2022-01-20 20:07] LABS: MANUAL DIFF FLAG NO
[2022-01-20 20:08] LABS: Basophils Percent Auto 0.2 % (0-2); Eosinophils Percent Auto 0.1 % (0-4); Hematocrit 34.3 % (37.0-47.0); Hemoglobin 11.1 g/dl (12.0-16.0); Imm Gran Abs Auto 0.15 X10*3/uL (0.00-0.03); Imm Gran Pct Auto 1.2 % (0.0-0.4); Lymphocytes Absolute Auto 1.4 X10*3/uL (1.2-4.9); Lymphocytes Percent Auto 11.4 % (20-40); Mean Corpuscular HGB Conc 32.4 g/dl (31.0-35.0); Mean Corpuscular Hemoglobin 26.3 pg (27.0-33.0); Mean Corpuscular Volume 81.3 fL (80.0-98.0); Monocytes Absolute Auto 1.4 X10*3/uL (0.1-1.2); Neutrophils Absolute Auto 9.5 x10*3/uL (2.0-8.3); Neutrophils Percent Auto 76.1 % (45-73); Platelet Count 153 X10*3/uL (160-400); Red Blood Count 4.22 X10*6/uL (4.20-5.50); Red Cell Distribution Width 15.3 % (11.0-16.0); White Blood Count 12.4 X10*3/uL (4.8-10.8)
[2022-01-20] MEDS: Piperacillin Sodium/Tazobactam 3.375 GM in 0.9 % Sodium Chloride 50 ML IV (20:22)
[2022-01-20] MEDS: 0.9 % Sodium Chloride 1,000 ML 999 ML IV ×2 (20:22→20:24)
[2022-01-20] MEDS: vancomycin HCL 1,000 MG in 0.9 % Sodium Chloride 250 ML 270 MG IV (20:22)
--- OUTSIDE RECORDS SUMMARY | 2022-01-20 20:23 | XMS_ITS ---
:1995 Author Care Team Providers Name Role Phone [facility] ([facility]) OTHER [phone] MERVAT RICHEY OTHER [phone] Allergies Code Code System Name Reaction Severity Status Onset 2179 RxNorm Cefazolin Rash ? Active ? Medications No Medications Reported Notes: meds reviewed; see MAR for deta ils Problems Name Status Onset Date Source ? Viral Hepatitis C Active 05/06/2021 ? Hyponatremia Active 05/06/2021 ? Anemia Active 05/06/2021 ? Anxiety Active 05/06/2021 ? Opioid Dependence Active 05/06/2021 ? Septic Pulmonary Embolism Active 05/06/2021 ? Infective Endocarditis of Tricuspid Valve Active 2021 ? Loculated Pleural Effusion Active 05/06/2021 ? Purpuric Rash Active 05/06/2021 ? Bacteremia Active 05/06/2021 ? Acute Hypoxemic Respiratory Failure Active 05/06/2021 ? Cellulitis of Right Forearm Active 05/06/2021 ? Insomnia Co-occurrent and Due to Medical Condition Active 05/06/2021 ? Procedures None recorded. Results Lab Results None recorded. Past Encounters 05/19/2021 Bacteremia; Viral Hepatitis C; Hyponatre bryan Liana Denise PA-C: [address] [place], [place] [address] [address], Ph. 05/08/2021 Infective Endocarditis of Tricuspid Valv e; Opioid Dependence; Septic Pulmonary Embolism; Anemia; Acute Hypoxemic Respiratory Failure; Acute Nontraumatic Kidney Injury; Essential Hypertension; Mixed Anxiety and Depressive Disorder; Asthenia Cassandra Padilla MD: [address] [place], [place] [address] [address], Ph. 05/05/2021 Infective Endocarditis of Tricuspid Valv e; Bacteremia; Cellulitis of Right Forearm; Acute Hypoxemic Respiratory Failure; Anemia; Hyponatremia; Insomnia Co- occurrent and Due to Medical Condition; Loculat ed Pleural Effusion; Septic Pulmonary Em bolism; Viral Hepatitis C; Purpuric Rash; Opioid Dependence; Anxiety Liana Denise PA-C: [address], [place] [address], Ph. Social History None recorded. Vaccine List None recorded. Plan of Care Reminders Provider Appointments None recorded. ? ? Lab None recorded. ? ? Referral None recorded. ? ? Procedures None recorded. ? ? Surgeries None recorded. ? ? Imaging None recorded. ? ? Vitals 05/19/2021 02:21PM Discharge Summary Height Weight BMI Blood Pressure 4 ft 11 in 156.6 lbs 31.6 kg/m2 122/77 mm[Hg] 05/08/2021 06:32AM Admitting H&P Height Blood Pressure 4 ft 11 in 131/61 mm[Hg] 05/05/2021 02:53PM Initial Intake Note Height Weight BMI Blood Pressure 4 ft 11 in 155.2 lbs 31.3 kg/m2 128/76 mm[Hg]
--- NOTE | 2022-01-20 20:24 | PC.NURSE ---
Pt. on ekg monitor. Awaiting blood cultures and lab work. IV access placed. 2L NS bolus infusing. IV antibiotics infusing. Pt. refusing to change into hospital gown at this time, but is otherwise calm and cooperative
[2022-01-20 20:26] VITALS: BP 76/34; PULSE 97; RESP 36; TEMP 37.5; O2SAT 95
[2022-01-20 20:27] LABS: COVID-19 Test Negative (Negative); IDNOW Serial# 55D5AD1C
--- NOTE | 2022-01-20 20:27 | PC.NURSE ---
Pt.'s BP is low to 76/34 with a MAP of 47 at this time. Pt.'s bed in Trendelenberg position to help with BP support
[2022-01-20 20:30] LABS: Alanine Aminotransferase 8 U/L (0-31); Albumin Level 3.2 g/dL (3.5-5.0); Alkaline Phosphatase 72 U/L (39-117); Anion Gap 24 (12-20); Aspartate Amino Transferase 19 U/L (5-31); Bilirubin Total 0.7 mg/dL (0.0-1.0); Blood Urea Nitrogen 41 mg/dL (9-16); Calcium 8.4 mg/dL (8.4-10.2); Carbon Dioxide 13 mmol/L (22-29); Chloride 94 mmol/L (96-108); Estimated Glomerular Filt Rate 24; Glucose Random 110 mg/dL (60-115); Magnesium 1.8 mg/dL (1.6-2.6); Potassium 3.5 mmol/L (3.3-5.1); Sodium 127 mmol/L (135-145); Total Protein 7.3 g/dL (6.5-8.0)
[2022-01-20 20:31] LABS: Lactic Acid 2.3 mmol/L (0.5-2.0)
[2022-01-20 21:25] VITALS: BP 72/35; PULSE 84; RESP 31; TEMP 36.8; O2SAT 95
--- NOTE | 2022-01-20 21:35 | PHA.MEDREC ---
Pharmacy Consult ? Medication Reconciliation Pharmacy has completed the medication reconciliation. Patient states she does not take anything at home. However, she does say she would like to be put on methadone.
[2022-01-20] MEDS: Midodrine HCl 10 MG TABLET PO (21:40)
--- NOTE | 2022-01-20 21:40 | PC.NURSE ---
Midodrine being administered at this time. MD aware of BP
[2022-01-20 21:41] VITALS: BP 83/42; PULSE 82; RESP 30; O2SAT 98
[2022-01-20 22:05] LABS: Reflex Lactate? Lactic Acid Added
--- NOTE | 2022-01-20 22:42 | P.HPCC_ITS ---
History of Present Illness Date of Service: 01/20/22 Attending physician on admission: Dejan Bronson Chief Complaint: Dizziness ?The patient is a 26-year-old with a past medical history of polysubstance abuse? ( IV cocaine, heroin,? PCP,? and fentanyl), ?Tricuspid valve endocarditis, MSSA bacteremia? and recent admission 12/22/21 to 12/28/21? for? bacteremia and wound on the right hand? but left AMA,? today? she presented to the emergency room complaining of dizziness.? She also? complained of foul smell coming from Right forearm wound, subjective fevers, chills and worsening weakness.? In the emergency room,? blood pressure? 76/34,? T-high 99.5, and ? tachypneic,? admitting to injecting IV cocaine to the wound on right forearm this morning.? She received 2 L of fluids,? vancomycin and Zosyn in the emergency room, but continued to be hypotensive.? Require radiation of pressors.? ?Laboratory data was significant for? WBC 12.4,? sodium 137, serum bicarb 13,? BUN 41, creatinine 2.45, lactic acid 2.3, albumin 3.2 ? Patient being admitted? to ICU for septic shock requiring vasopressor support Review of Systems Review of Systems: Per HPI, Yes all other systems are reviewed and are negative PMFSH Past Medical History Medical History MELITON (acute kidney injury) Bacteremia Cocaine use disorder, severe, dependence Elevated blood pressure reading Fever History of endocarditis Opioid use disorder, severe, dependence Septic embolism Substance abuse Wound of right upper extremity Family History Family History Mother No problems noted. Father No problems noted. Social History Social History Household Members: None and Other Housing: Homeless Housing Other:: homeless but states staying with friends Do you presently have visiting nurse or other home services: No Unable to assess alcohol history related to: Refusing to respond Alcohol intake: current Alcohol intake frequency: 3 or more drinks per day Alcohol type: beer Patient Tobacco Use Status: Current everyday Tobacco user Tobacco use type: Cigarette Substance Use Type: Crack/Cocaine and Heroin Substance Use Type Other:: Fentanyl Substance Use Frequency: Daily Last Used Substance: Hours (ago) Advance Directives: No Advance Directives Information Provided: No Patient : No service: No Current occupational status: unemployed Meds Allergies Allergy/AdvReac Type Severity Reaction Status Date / Time cefazolin Allergy Rash Verified 12/25/21 15:52 Active Medications: Current Medications Phenylephrine HCl 20 mg/ (Sodium Chloride) 252 mls @ 0 mls/hr IVCONT .Q0M CORAZON; Protocol Home Medications Medication Instructions Recorded Confirmed Last Taken Type No Known Home Meds 12/22/21 01/20/22 Unknown History Physical Exam Vital Signs: Vital Signs: Last Vital Signs Temp 98.3 F 01/20/22 21:25 Pulse 82 01/20/22 21:41 Resp 30 H 01/20/22 21:41 BP 83/42 L 01/20/22 21:41 Pulse Ox 98 01/20/22 21:41 O2 Del Method 01/20/22 21:41 Focused assessment performed at 2240 ?General:? Patient is lethargic but alert and oriented x3 ?Skin:?Right forearm wound with foul smell? ?HEENT:? Head is normocephalic, atraumatic, pupils equal round reactive to light accommodation bilaterally.? Extraocular movements appear intact.? Neck is supple. ?Cardiac:?Sinus. S1-S2, no murmurs rubs or gallops. Normal capillary refills ?Pulmonary:? Clear to auscultation, no wheezes, rales or rhonchi. ?Abdomen:? Abdomen Soft, nontender, no rebound or guarding.?? ?Musculoskeletal:?Moving all 4 extremities upon request a major joints, there is no crepitus or tenderness.? The strength is 5/5 bilaterally and throughout all 4 extremities. ?Neurologic: cranial nerves 2-12 are grossly intact.? No focal deficits no ciera.Motor strength as above.?? Vascular:? 2+ pulses upper and lower extremities distally.? Results Labs CBC and Chem 7: 01/20/22 20:00 01/20/22 20:00 Labs: Laboratory Results - last 24 hr 01/20/22 01/20/22 01/20/22 20:00 20:00 20:00 MCV 81.3 MCH 26.3 L MCHC 32.4 RDW 15.3 Plt Count 153 L D MPV 10.0 Immature Gran % (Auto) 1.2 H Neut % (Auto) 76.1 H Lymph % (Auto) 11.4 L [place] % (Auto) 11.0 Eos % (Auto) 0.1 Baso % (Auto) 0.2 Lymph # (Auto) 1.4 Carl[place] # (Auto) 1.4 H Eos # (Auto) 0.0 Baso # (Auto) 0.0 Abs Immat Gran (auto) 0.15 H Absolute Neuts (auto) 9.5 H Absolute Nucleated RBC 0.000 Nucleated RBC % (auto) 0.0 Anion Gap 24 H Estim Creat Clear Calc TNP Estimated GFR 24 Random Glucose 110 Lactic Acid 2.3 H* Calcium 8.4 D Magnesium 1.8 Total Bilirubin 0.7 AST 19 ALT 8 Alkaline Phosphatase 72 Total Protein 7.3 D Albumin 3.2 L D COVID-19 ([facility]) COVID-19 Clin Com 01/20/22 20:03 MCV MCH MCHC RDW Plt Count MPV Immature Gran % (Auto) Neut % (Auto) Lymph % (Auto) Carl[place] % (Auto) Eos % (Auto) Baso % (Auto) Lymph # (Auto) Carl[place] # (Auto) Eos # (Auto) Baso # (Auto) Abs Immat Gran (auto) Absolute Neuts (auto) Absolute Nucleated RBC Nucleated RBC % (auto) Anion Gap Estim Creat Clear Calc Estimated GFR Random Glucose Lactic Acid Calcium Magnesium Total Bilirubin AST ALT Alkaline Phosphatase Total Protein Albumin COVID-19 ([facility]) Negative COVID-19 Clin Com See Note Imaging Radiologist's Impressions: Impressions Chest X-Ray 01/20/22 21:05 IMPRESSION: Question subtle opacities in the right hilar region may simple reflect atelectasis or vascular markings. Minimal bibasilar opacities likely unchanged and represent atelectasis or minimal scarring. Assessment and Plan (1) Septic shock: Status: Acute (2) Bacteremia: Status: Acute (3) Acute kidney injury: Status: Acute (4) Metabolic acidosis: Status: Acute Plan 26-year-old with polysubstance abuse admitted for septic shock likely from forearm wound infection Neuro:? no acute issues Cardiac:? Septic shock, lactic acid elevated,? patient hypotensive despite received 2L? bolus and 10 of midodrine in the emergency room, require initiation of pressors.? Will add albumin. Will continue antibiotics.? Wean off pressors as appropriate Pulmonary:? ?No acute issues Renal:?? MELITON- most likely related to hypoperfusion, nonoliguric.? Received 2 L in the ED.? Continue to check renal induces and urine output Endo:? No acute issues.?? ?GI:?? ?Metabolic acidosis-? patient?s serum bicarb? is 13,? will obtain a VBG.? Heme/Onc: ? no acute issues ID:? septic shock-? has hx of MSSA bacteremia, tricuspid valve endocarditis and has an infected right forearm wound. Will cont? empiric antibiotic coverage? with vanco and Zosyn.? Surgical wound consult in the morning. Blood cultures pending? Psych:? No acute issues prophylaxis:? subQ heparin, ? compression boots, No GI prophylaxis at this time Critical care time:? X 60 minutes of critical care time Code? status: FULL code?? Case discussed with attending Dr Bronson Critical Care Time Critical Care Time (minutes): 60
[2022-01-20 22:43] VITALS: BP 83/42; PULSE 74
[2022-01-20] MEDS: Phenylephrine HCL 20 MG in 0.9 % Sodium Chloride 250 ML 22.11 MG IVCONT (22:43)
--- NOTE | 2022-01-20 22:48 | PC.NURSE ---
Patient refusing to let this PCT draw a repeat lactic acid blood test. Claiming, I don't want to be poked right now! JEREMY Vasquez and Dr Villavicencio aware.
--- NOTE | 2022-01-20 22:49 | PC.NURSE ---
Pt. refusing blood work/lactic acid. MD Lynsey notified
--- NOTE | 2022-01-20 23:39 | PC.NURSE ---
Unable to start Albumin infusion at this time d/t pt. having only one IV access and refusing additional IVs. Also because Albumin is not compatible with Phenylnephrine
[2022-01-20 23:52] VITALS: BP 105/60; PULSE 71; RESP 30; O2SAT 97
[2022-01-21] VITALS (33 sets, daily range): BP systolic 72–162; BP diastolic 33–96; PULSE 53–121; RESP 14–36; TEMP 34–37.2; O2SAT 94–100
--- NOTE | 2022-01-21 | ECG_ITS ---
Test Reason : rhythm change Blood Pressure : / mmHG Vent. Rate : 083 BPM Atrial Rate : 083 BPM P-R Int : 150 ms QRS Dur : 090 ms QT Int : 462 ms P-R-T Axes : 064 084 035 degrees QTc Int : 542 ms Normal sinus rhythm Low voltage QRS Septal infarct , age undetermined Prolonged QT Abnormal ECG When compared with ECG of 20-JAN-2022 20:11, Premature supraventricular complexes are no longer Present QT has lengthened Heart rate has decreased Referred By: Fely Stockton Electronically Signed By:ELVIA NOLAN
[2022-01-21] MEDS: Albumin Human 25 % 100 ML IV (00:36)
[2022-01-21] MEDS: Piperacillin Sodium/Tazobactam 4.5 GM in 0.9 % Sodium Chloride 100 ML IV ×4 (01:47→20:35)
--- NOTE | 2022-01-21 07:00 | CA_ITS ---
Transthoracic Echocardiogram Patient (Last, First, Middle): Vanda Ch, Gender: Female Date of : 1995 Age: 26 Procedure Date: 01/21/2022 Procedure Type: Transthoracic Echocardiogram Location: ICU Height: 149.86 cm Weight: 58.06 kg BSA: 1.53 m2 Heart Rate: 68 bpm BP: 106 / 49 mmHg [place] Attendant: SB Referring MD: Dejan Bronson MD Symptoms: ? endocarditis Study Quality: Adequate/pt term exam during apical images ECG Rhythm: Sinus Conclusions: - Limited study because patient was not cooperative. - Tricuspid valve vegetation with destruction of the valve and wide open tricuspid valve regurgitation. - Severe dilation of RA and RV. Mild RV dysfunction. Findings Left Ventricle Normal left ventricular size, thickness, and systolic function. The visually estimated ejection fraction is between 55-60%. There is no evidence of regional wall motion abnormalities. Right Ventricle Severely increased right ventricular cavity size. There is mildly decreased right ventricular systolic function. Atria The right atrium is severely dilated. Aortic Valve There is a normal trileaflet aortic valve. There is no aortic valve stenosis. There is no aortic valve regurgitation. Mitral Valve The mitral valve appears normal. There is mild mitral valve regurgitation. There is no mitral valve stenosis. Tricuspid Valve 2 vegetations of 2 cm x 0.8 cm and 1.5 x 0.8 cm noted on the tricuspid valve. There is torrential tricuspid valve regurgitation. Prior Study Comparison No significant change compared to prior study dated: 12/22/2021. Measurements 2D Linear Measurements IVSd: 0.75 0.6-0.9/0.6-1.0 cm LVIDd: 4.51 3.9-5.3/4.2-5.9 cm LVIDs: 3.04 2.0-3.6 cm LVPWd: 0.50 0.7-1.1 cm LV Mass: 103.14 67-162/88-224 g 2D Systolic Function EF Teich: 61.00 >55% Tricuspid Valve TR Pk Kameron: 2.16 TR Pk Grad: 19.00 Updated in Other Vendor System with Status of Final Noel Blackwood MD electronically signed on 01/21/2022 11:49:41 AM with status of Final
--- NOTE | 2022-01-21 07:36 | PHA.PROG ---
Admission Date/Time: January 20, 2022 22:43 Indication: BACTEREMIA Weight in k.5 kg Adjusted body weight in K.3 [place] body weight in K.2 Obesity Dosing Indication % IBW: NOT OBESE Serum Creatinine - Last 168 Hours 01/20/22 20:00 Creatinine 2.45 H Estimated CrCl and GFR - Last 168 Hours 01/20/22 20:00 Estim Creat Clear Calc TNP Estimated GFR 24 Vancomycin Loading Dose: 1000 MG Current Vancomycin Dosing Regimen: 750MG Q24H Vancomycin Monitoring using AUC goal of 400 - 600 range with trough as surrogate marker: 448 mg/L/hr Date and Time for next Vancomycin Level to be drawn: 01/22 @1800 Pharmacist Comments on Vancomycin Plan: Patient received a 1 gram load, ~17mg/kg. Loaded with caution due to renal function. Patient is refusing labs, making it hard to get an update on renal function. Patient is in ICU, renal function could be declining, chose to dose with caution. 750mg Q24H, predicted AUC 448 mg/L/hr. Renal function is monitored daily by pharmacy, if change happens, dose will be changed to reflect. Level to be drawn 01/22 @1800 Vancomycin dosing will take advantage of [employer] as a clinical decision support tool that uses Bayesian modeling to calculate individual patient's pharmacokinetic parameters and forecast the patient's drug concentration time course with the target goal AUC 24 range of 400 - 600 mg/L/hr.
[2022-01-21] MEDS: Phenylephrine HCL 20 MG in 0.9 % Sodium Chloride 250 ML 44.23 MG IVCONT (08:00)
[2022-01-21] MEDS: Haloperidol Lactate 5 MG/ML VIAL 10 MG IV (08:37)
[2022-01-21] MEDS: Heparin Sodium,Porcine 5,000 UNIT/ML VIAL 5000 UNIT SUBCUT ×3 (08:43→20:56)
[2022-01-21 09:14] LABS: VBG Base Excess -7.9 mmol/L; VBG HCO3 13 mmol/L (22-26); VBG pCO2 19 mmHg; VBG pH 7.45 (7.32-7.43); VBG pO2 229 mmHg
[2022-01-21 09:14] LABS: Venous Blood Gas Refer to POC result
[2022-01-21 09:26] LABS: Basophils Absolute Auto 0.1 X10*3/uL (0.0-0.2); Basophils Percent Auto 0.8 % (0-2); Eosinophils Absolute Auto 0.1 X10*3/uL (0.0-0.4); Eosinophils Percent Auto 0.4 % (0-4); Hematocrit 31.4 % (37.0-47.0); Hemoglobin 9.9 g/dl (12.0-16.0); Imm Gran Abs Auto 0.21 X10*3/uL (0.00-0.03); Imm Gran Pct Auto 1.5 % (0.0-0.4); Lymphocytes Absolute Auto 2.9 X10*3/uL (1.2-4.9); Lymphocytes Percent Auto 20.6 % (20-40); MANUAL DIFF FLAG SCAN; Mean Corpuscular HGB Conc 31.5 g/dl (31.0-35.0); Mean Corpuscular Hemoglobin 26.3 pg (27.0-33.0); Mean Corpuscular Volume 83.3 fL (80.0-98.0); Monocytes Absolute Auto 1.7 X10*3/uL (0.1-1.2); Monocytes Percent Auto 12.1 % (2-11); Neutrophils Percent Auto 64.6 % (45-73); PLT CLUMP 1; Red Blood Count 3.77 X10*6/uL (4.20-5.50); Red Cell Distribution Width 15.6 % (11.0-16.0); SCAN SMEAR FLAG 1
[2022-01-21 09:40] LABS: Alanine Aminotransferase 8 U/L (0-31); Albumin Level 2.7 g/dL (3.5-5.0); Alkaline Phosphatase 61 U/L (39-117); Aspartate Amino Transferase 26 U/L (5-31); Bilirubin Total 1.1 mg/dL (0.0-1.0); Blood Urea Nitrogen 43 mg/dL (9-16); Creatinine Clr Calc Pharmacy 24.1; Estimated Glomerular Filt Rate 21; Glucose Random 113 mg/dL (60-115); Magnesium 1.9 mg/dL (1.6-2.6); Phosphorus 3.6 mg/dL (2.7-4.5); Total Protein 6.1 g/dL (6.5-8.0)
[2022-01-21 10:09] LABS: Anion Gap 20 (12-20); Calcium 7.6 mg/dL (8.4-10.2); Carbon Dioxide 8 mmol/L (22-29); Chloride 103 mmol/L (96-108); Potassium 3.5 mmol/L (3.3-5.1); Sodium 127 mmol/L (135-145)
[2022-01-21 10:14] LABS: Platelet Count 99 X10*3/uL (160-400)
--- NOTE | 2022-01-21 10:48 | P.CONCA_ITS ---
History of Present Illness History of Present Illness Date of Service: 01/21/22 Requesting physician: Dejan Bronson Chief complaint: TV endocarditis, RV failure Narrative: 26-year-old female with known history of tricuspid valve endocarditis diagnosed in November 2019 to, severe RV dilation, severe tricuspid valve regurgitation who left AMA and presented again with septic shock. She has been on pressors and IV antibiotics. On last admission the weather discussion by Dr. Casanova with the patient about management under carditis including surgery and she adamantly refuse surgery in the past. She is denying any chest pain or shortness of breath. At home she did not have any dyspnea. [facility] Past Medical History Medical History MELITON (acute kidney injury) Bacteremia Cocaine use disorder, severe, dependence Elevated blood pressure reading Fever History of endocarditis Opioid use disorder, severe, dependence Septic embolism Substance abuse Wound of right upper extremity Family History Family History Mother No problems noted. Father No problems noted. Social History Social History Household Members: None and Other Housing: Homeless Housing Other:: homeless but states staying with friends Do you presently have visiting nurse or other home services: No Unable to assess alcohol history related to: Refusing to respond Alcohol intake: current Alcohol intake frequency: 3 or more drinks per day [place] type: beer Patient Tobacco Use Status: Current everyday Tobacco user Tobacco use type: Cigarette Substance Use Type: Crack/Cocaine and Heroin Substance Use Type Other:: Fentanyl Substance Use Frequency: Daily Last Used Substance: Hours (ago) Advance Directives: No Advance Directives Information Provided: No Patient : No service: No Current occupational status: unemployed Meds Allergies Allergy/AdvReac Type Severity Reaction Status Date / Time cefazolin Allergy Rash Verified 12/25/21 15:52 Active Medications: Current Medications Heparin Sodium (Porcine) (Heparin Sodium,Porcine 5,000 Unit/Ml Vial) 5,000 unit SUBCUT TID [facility] Last Admin: 01/21/22 08:43 Dose: 5,000 unit Piperacillin Sod/Tazobactam (Sod 4.5 gm/ Sodium Chloride) 100 mls @ 200 mls/hr IV Q6H [facility] Last Admin: 01/21/22 08:42 Dose: 200 mls/hr Vancomycin HCl 750 mg/ Sodium (Chloride) 265 mls @ 265 mls/hr IV Q24H CORAZON Norepinephrine Bitartrate (Levophed) 8 mg in 250 mls @ 0 mls/hr IVCONT .Q0M CORAZON; Protocol Last Admin: 01/21/22 08:42 Dose: 0.05 mcg/kg/min, 5.48 mls/hr Sodium Bicarbonate 150 meq/ (Dextrose) 1,000 mls @ 100 mls/hr IV .Q10H CORAZON Fentanyl (Sublimaze/Ns) 1,000 mcg in 100 mls @ 0 mls/hr IVCONT .Q0M CORAZON; P rotocol Naloxone HCl (Naloxone Hcl 0.4 Mg/Ml Vial) 0.2 mg IVPUSH Q2M PRN PRN Reason: Excessive sedation or RR < 8 Pharmacy Consult (Consult Rx Vancomycin Dosing) 1 each MISCELLANE DAILY PRN PRN Reason: Consult order Home Medications Medication Instructions Recorded Confirmed Last Taken Type No Known Home Meds 12/22/21 01/20/22 Unknown History Physical Exam Vital Signs: Vital Signs: Last Vital Signs Temp 99.0 F 01/21/22 08:00 Pulse 73 01/21/22 10:00 Resp 25 H 01/21/22 10:00 BP 121/84 01/21/22 10:00 Pulse Ox 95 01/21/22 10:00 O2 Del Method 01/21/22 10:00 GENERAL APPEARANCE: Sick appearing. NECK: no carotid bruit, positive jugular venous distention. SKIN: Right arm dressed where she has been injecting. HEART: no murmurs, regular rate and rhythm. LUNGS: clear to auscultation bilaterally. ABDOMEN: soft, nontender. EXTREMITIES: no edema. PERIPHERAL PULSES: equal. NEUROLOGIC: No gross deficits, AAO X 3 Objective Labs and Meds Result diagrams: 01/21/22 09:04 01/21/22 09:04 Lab results: Laboratory Results - last 24 hr 01/20/22 01/20/22 01/20/22 20:00 20:00 20:00 WBC 12.4 H RBC 4.22 Hgb 11.1 L Hct 34.3 L MCV 81.3 MCH 26.3 L MCHC 32.4 RDW 15.3 Plt Count 153 L D MPV 10.0 Immature Gran % (Auto) 1.2 H Neut % (Auto) 76.1 H Lymph % (Auto) 11.4 L [place]ison % (Auto) 11.0 Eos % (Auto) 0.1 Baso % (Auto) 0.2 Lymph # (Auto) 1.4 [place]ison # (Auto) 1.4 H Eos # (Auto) 0.0 Baso # (Auto) 0.0 Abs Immat Gran (auto) 0.15 H Absolute Neuts (auto) 9.5 H Absolute Nucleated RBC 0.000 Nucleated RBC % (auto) 0.0 VBG pH VBG pCO2 VBG pO2 VBG HCO3 VBG O2 Saturation VBG Base Excess Sodium 127 L Potassium 3.5 Chloride 94 L Carbon Dioxide 13 L Anion Gap 24 H BUN 41 H D Creatinine 2.45 H Estim Creat Clear Calc TNP Estimated GFR 24 Random Glucose 110 Lactic Acid 2.3 H* Calcium 8.4 D Phosphorus Magnesium 1.8 Total Bilirubin 0.7 AST 19 ALT 8 Alkaline Phosphatase 72 Total Protein 7.3 D Albumin 3.2 L D COVID-19 ([facility]) COVID-19 Clin Com 01/20/22 01/21/22 01/21/22 20:03 09:04 09:04 WBC 14.0 H RBC 3.77 L Hgb 9.9 L Hct 31.4 L MCV 83.3 MCH 26.3 L MCHC 31.5 RDW 15.6 Plt Count 99 L D MPV Not Reportable Immature Gran % (Auto) 1.5 H Neut % (Auto) 64.6 Lymph % (Auto) 20.6 [place]ison % (Auto) 12.1 H Eos % (Auto) 0.4 Baso % (Auto) 0.8 Lymph # (Auto) 2.9 [place] # (Auto) 1.7 H Eos # (Auto) 0.1 Baso # (Auto) 0.1 Abs Immat Gran (auto) 0.21 H Absolute Neuts (auto) 9.0 H Absolute Nucleated RBC 0.000 Nucleated RBC % (auto) 0.0 VBG pH VBG pCO2 VBG pO2 VBG HCO3 VBG O2 Saturation VBG Base Excess Sodium 127 L Potassium 3.5 Chloride 103 Carbon Dioxide 8 L* D Anion Gap 20 BUN 43 H Creatinine 2.80 H Estim Creat Clear Calc 24.1 Estimated GFR 21 Random Glucose 113 Lactic Acid Calcium 7.6 L D Phosphorus 3.6 Magnesium 1.9 Total Bilirubin 1.1 H AST 26 ALT 8 Alkaline Phosphatase 61 Total Protein 6.1 L Albumin 2.7 L COVID-19 ([facility]) Negative COVID-19 Clin Com See Note 01/21/22 01/21/22 09:08 09:08 WBC RBC Hgb Hct MCV MCH MCHC RDW Plt Count MPV Immature Gran % (Auto) Neut % (Auto) Lymph % (Auto) [place] % (Auto) Eos % (Auto) Baso % (Auto) Lymph # (Auto) [place] # (Auto) Eos # (Auto) Baso # (Auto) Abs Immat Gran (auto) Absolute Neuts (auto) Absolute Nucleated RBC Nucleated RBC % (auto) VBG pH 7.45 H VBG pCO2 19 VBG pO2 229 VBG HCO3 13 L VBG O2 Saturation 100.0 VBG Base Excess -7.9 Sodium Potassium Chloride Carbon Dioxide Anion Gap BUN Creatinine Cancelled Estim Creat Clear Calc Cancelled Estimated GFR Cancelled Random Glucose Lactic Acid Calcium Phosphorus Magnesium Total Bilirubin AST ALT Alkaline Phosphatase Total Protein Albumin COVID-19 ([facility]) COVID-19 Clin Com Imaging Radiologist's impression: Impressions Chest X-Ray 01/20/22 21:05 IMPRESSION: Question subtle opacities in the right hilar region may simple reflect atelectasis or vascular markings. Minimal bibasilar opacities likely unchanged and represent atelectasis or minimal scarring. Assessment and Plan (1) Septic shock: Status: Acute (2) Infective endocarditis of tricuspid valve: Status: Acute (3) Right ventricular dysfunction: Status: Acute Plan 26-year-old female who is presenting with septic shock due to infective endocarditis. She was seen in November [address] Casanova when she presented with bacteremia and was diagnosed with tricuspid endocarditis with severe tricuspid valve regurgitation, severely dilated right ventricle and right atrium. At that time she refused surgery and it appears as she improved she left AMA. She again presented to us with sepsis and is currently in the ICU on antibiotics and pressors. Her echocardiography appear similar to a month ago with RV dilation with borderline right ventricular dysfunction but severe dilation of right-sided chambers due to volume overload secondary to wide open tricuspid regurgitation. In general this is a surgical situation but patient again is refusing surgery. They will be some discussion with Psychiatry as per ICU team to assess her competence. Supportive care for now. Avoid beta-blockers, verapamil and Cardizem. If she is agreeable to surgical intervention then a discussion with cardio thoracic surgery can be done. We will follow along with you. Thank you for allowing me to participate in the care of your patient. Please feel free to contact me if you have any questions. Procedures Date of Service Date of Service: 01/21/22
[2022-01-21] MEDS: Sodium Bicarbonate 8.4% 50 MEQ/50 ML SYRINGE IVPUSH ×2 (11:03→20:11)
[2022-01-21] MEDS: Sodium Bicarbonate 8.4% 150 MEQ in Dextrose 5 % 850 ML 100 MEQ IV (11:43)
[2022-01-21 11:58] LABS: SLIDE REVIEW VERIFIED
[2022-01-21] MEDS: propofoL 200 MG/20 ML VIAL IVPUSH (12:24)
[2022-01-21] MEDS: propofoL 1,000 MG/100 ML VIAL 7.02 MG IVCONT (12:25)
[2022-01-21] MEDS: Cisatracurium Besylate 20 MG/10 ML VIAL IVPUSH (12:28)
[2022-01-21 13:12] LABS: VBG Base Excess -7.7 mmol/L; VBG HCO3 17 mmol/L (22-26); VBG pCO2 33 mmHg; VBG pH 7.31 (7.32-7.43); VBG pO2 46 mmHg
[2022-01-21 13:13] LABS: MANUAL DIFF FLAG NO
[2022-01-21 13:15] LABS: Basophils Absolute Auto 0.1 X10*3/uL (0.0-0.2); Basophils Percent Auto 0.6 % (0-2); Eosinophils Percent Auto 0.2 % (0-4); Hematocrit 35.3 % (37.0-47.0); Hemoglobin 11.1 g/dl (12.0-16.0); Imm Gran Abs Auto 0.33 X10*3/uL (0.00-0.03); Imm Gran Pct Auto 2.5 % (0.0-0.4); Lymphocytes Percent Auto 15.5 % (20-40); Mean Corpuscular HGB Conc 31.4 g/dl (31.0-35.0); Mean Corpuscular Hemoglobin 26.1 pg (27.0-33.0); Mean Corpuscular Volume 82.9 fL (80.0-98.0); Mean Platelet Volume 10.1 fL (9.4-12.3); Monocytes Absolute Auto 1.1 X10*3/uL (0.1-1.2); Monocytes Percent Auto 8.3 % (2-11); Neutrophils Absolute Auto 9.6 x10*3/uL (2.0-8.3); Neutrophils Percent Auto 72.9 % (45-73); Platelet Count 141 X10*3/uL (160-400); Red Blood Count 4.26 X10*6/uL (4.20-5.50); Red Cell Distribution Width 15.7 % (11.0-16.0); White Blood Count 13.1 X10*3/uL (4.8-10.8)
[2022-01-21 13:32] LABS: Venous Blood Gas Refer to POC result
[2022-01-21] MEDS: fentaNYL citrate/NS 1,000 MCG/100 ML PLAST..BAG 2.5 MCG IVCONT (13:33)
--- NOTE | 2022-01-21 13:38 | W.PM.CCHP ---
Procedures Date of Service Date of Service: 01/21/22 Intubation Intubation Comments: Patient with rapid development of hypoxemia and associated arrhythmia noncompliant with support with noninvasive supplemental oxygen emergently intubated with 7.5 cuffed ET tube under glide scope guidance with no immediate complications. ET tube position verified with chest x-ray.
[2022-01-21 13:40] LABS: Troponin-I High Sensitivity 3.5 ng/L (<3.5-17.0)
--- NOTE | 2022-01-21 13:41 | W.PM.CCHP ---
Procedures Date of Service Date of Service: 01/21/22 Central Line Placement Right IJ: Central Line Comments: Right internal jugular triple-lumen central venous catheter emergently placed for vasopressor support under ultrasound guidance and usual sterile conditions with no immediate complications. Line position verified on chest x-ray.
--- NOTE | 2022-01-21 13:44 | PM.CCPN ---
Subjective Subjective Date of Service: 01/21/22 Interval History: 26-year-old lady with underlying history of polysubstance abuse, prior history of tricuspid valve endocarditis and MSSA bacteremia with recent admission on 12/22/2021 with patient leaving AMA on 12/28/2021 admitted on 01/20/2022 with lightheadedness secondary to staphylococcal bacteremia with tricuspid endocarditis requiring vasopressor support. On 01/21/2022 patient with rapid development of hypoxia and tachyarrhythmia with widening QRS noncompliant with noninvasive supplemental oxygen requiring emergent intubation and ventilatory support. Cardiology service evaluation requested. No events overnight. Critical Care Time (minutes): 60 Physical Exam Vital Signs: Vital Signs: Last Vital Signs Temp 97.8 F 01/21/22 12:00 Pulse 121 H 01/21/22 13:00 Resp 29 H 01/21/22 13:00 BP 162/95 H 01/21/22 13:00 Pulse Ox 95 01/21/22 13:00 O2 Del Method 01/21/22 13:00 FiO2 50 01/21/22 13:00 Const: General: no acute distress and other ( Sedated on the vent) Eyes: Sclerae: sclerae normal EOM: EOMs intact bilaterally Neck: Neck: Yes no lymphadenopathy, Yes trachea midline and Yes supple Resp: Effort & Inspection: normal respiratory effort and no respiratory distress Auscultation: clear to auscultation bilaterally Cardio: Rate: tachycardic Rhythm: regular rhythm Heart sounds: no gallops, no murmurs and no rubs GI: Palpation (GI): Soft to palpation and Other GI palpation findings present ( Nontender) Auscultation: normal bowel sounds Skin: General skin exam: other ( multiple injection vergara) Extrem: General: Yes no pedal edema, No clubbing and No cyanosis Objective Data Labs CBC & Chem 7: 01/21/22 13:06 01/21/22 09:04 Labs: Laboratory Results - last 24 hr 01/20/22 01/20/22 01/20/22 20:00 20:00 20:00 WBC 12.4 H RBC 4.22 Hgb 11.1 L Hct 34.3 L MCV 81.3 MCH 26.3 L MCHC 32.4 RDW 15.3 Plt Count 153 L D MPV 10.0 Immature Gran % (Auto) 1.2 H Neut % (Auto) 76.1 H Lymph % (Auto) 11.4 L Faulk % (Auto) 11.0 Eos % (Auto) 0.1 Baso % (Auto) 0.2 Lymph # (Auto) 1.4 Faulk # (Auto) 1.4 H Eos # (Auto) 0.0 Baso # (Auto) 0.0 Abs Immat Gran (auto) 0.15 H Absolute Neuts (auto) 9.5 H Absolute Nucleated RBC 0.000 Nucleated RBC % (auto) 0.0 Smear Tech's Comments VBG pH VBG pCO2 VBG pO2 VBG HCO3 VBG O2 Saturation VBG Base Excess Sodium 127 L Potassium 3.5 Chloride 94 L Carbon Dioxide 13 L Anion Gap 24 H BUN 41 H D Creatinine 2.45 H Estim Creat Clear Calc TNP Estimated GFR 24 Random Glucose 110 Lactic Acid 2.3 H* Calcium 8.4 D Phosphorus Magnesium 1.8 Total Bilirubin 0.7 AST 19 ALT 8 Alkaline Phosphatase 72 Troponin I High Sens Total Protein 7.3 D Albumin 3.2 L D COVID-19 ([facility]) COVID-19 Clin Com 01/20/22 01/21/22 01/21/22 20:03 09:04 09:04 WBC 14.0 H RBC 3.77 L Hgb 9.9 L Hct 31.4 L MCV 83.3 MCH 26.3 L MCHC 31.5 RDW 15.6 Plt Count 99 L D MPV Not Reportable Immature Gran % (Auto) 1.5 H Neut % (Auto) 64.6 Lymph % (Auto) 20.6 Faulk % (Auto) 12.1 H Eos % (Auto) 0.4 Baso % (Auto) 0.8 Lymph # (Auto) 2.9 Faulk # (Auto) 1.7 H Eos # (Auto) 0.1 Baso # (Auto) 0.1 Abs Immat Gran (auto) 0.21 H Absolute Neuts (auto) 9.0 H Absolute Nucleated RBC 0.000 Nucleated RBC % (auto) 0.0 Smear Tech's Comments VERIFIED VBG pH VBG pCO2 VBG pO2 VBG HCO3 VBG O2 Saturation VBG Base Excess Sodium 127 L Potassium 3.5 Chloride 103 Carbon Dioxide 8 L* D Anion Gap 20 BUN 43 H Creatinine 2.80 H Estim Creat Clear Calc 24.1 Estimated GFR 21 Random Glucose 113 Lactic Acid Calcium 7.6 L D Phosphorus 3.6 Magnesium 1.9 Total Bilirubin 1.1 H AST 26 ALT 8 Alkaline Phosphatase 61 Troponin I High Sens Total Protein 6.1 L Albumin 2.7 L COVID-19 ([facility]) Negative COVID-19 Clin Com See Note 01/21/22 01/21/22 01/21/22 09:08 09:08 13:06 WBC 13.1 H RBC 4.26 Hgb 11.1 L Hct 35.3 L MCV 82.9 MCH 26.1 L MCHC 31.4 RDW 15.7 Plt Count 141 L D MPV 10.1 Immature Gran % (Auto) 2.5 H Neut % (Auto) 72.9 Lymph % (Auto) 15.5 L Faulk % (Auto) 8.3 Eos % (Auto) 0.2 Baso % (Auto) 0.6 Lymph # (Auto) 2.0 Faulk # (Auto) 1.1 Eos # (Auto) 0.0 Baso # (Auto) 0.1 Abs Immat Gran (auto) 0.33 H Absolute Neuts (auto) 9.6 H Absolute Nucleated RBC 0.000 Nucleated RBC % (auto) 0.0 Smear Tech's Comments VBG pH 7.45 H VBG pCO2 19 VBG pO2 229 VBG HCO3 13 L VBG O2 Saturation 100.0 VBG Base Excess -7.9 Sodium Potassium Chloride Carbon Dioxide Anion Gap BUN Creatinine Cancelled Estim Creat Clear Calc Cancelled Estimated GFR Cancelled Random Glucose Lactic Acid Calcium Phosphorus Magnesium Total Bilirubin AST ALT Alkaline Phosphatase Troponin I High Sens Total Protein Albumin COVID-19 ([facility]) COVID-19 Clin Com 01/21/22 01/21/22 13:06 13:07 WBC RBC Hgb Hct MCV MCH MCHC RDW Plt Count MPV Immature Gran % (Auto) Neut % (Auto) Lymph % (Auto) Faulk % (Auto) Eos % (Auto) Baso % (Auto) Lymph # (Auto) Faulk # (Auto) Eos # (Auto) Baso # (Auto) Abs Immat Gran (auto) Absolute Neuts (auto) Absolute Nucleated RBC Nucleated RBC % (auto) Smear Tech's Comments VBG pH 7.31 L VBG pCO2 33 VBG pO2 46 VBG HCO3 17 L VBG O2 Saturation 67.0 VBG Base Excess -7.7 Sodium Potassium Chloride Carbon Dioxide Anion Gap BUN Creatinine Estim Creat Clear Calc Estimated GFR Random Glucose Lactic Acid Calcium Phosphorus Magnesium Total Bilirubin AST ALT Alkaline Phosphatase Troponin I High Sens 3.5 Total Protein Albumin COVID-19 ([facility]) COVID-19 Clin Com Microbiology Microbiology Results: Microbiology 01/20/22 20:03 Blood - Venous Blood Culture - Preliminary Prelim: GPC Gram Stain only 01/20/22 20:00 Blood - Venous Blood Culture - Preliminary Prelim: GPC Gram Stain only Progress Note: A&P Assessment and plan (1) Septic shock: Status: Acute (2) Right ventricular dysfunction: Status: Acute (3) Acute kidney injury: Status: Acute (4) Infective endocarditis of tricuspid valve: Status: Acute (5) Polysubstance abuse: Status: Acute (6) Bacteremia due to Staphylococcus: Status: Acute (7) Acute respiratory failure: Status: Acute Plan Assessment: 26-year-old lady admitted with septic shock with staphylococcal bacteremia and tricuspid endocarditis further complicated by acute kidney injury and acute respiratory failure Plan: Neuro: No acute issues. Cardiac: tricuspid endocarditis. Cardiology evaluation requested. 2D echo results are pending. Pulmonary: Acute hypoxic respiratory failure on the background of staphylococcal bacteremia requiring ventilatory support. Continue to titrate off as tolerated. Renal: Acute kidney injury likely secondary to staphylococcal bacteremia. Non oliguric. Continue to monitor renal indices and urine output. Endo: No acute issues. GI: No acute issues. ID: Staphylococcal bacteremia with tricuspid endocarditis, sensitivities are pending. Continue broad-spectrum antibiotics. Repeat blood cultures. Heme/Onc: No acute issues. Psych: No acute issues. Miscellaneous: No acute issues. Prophylaxis: Heparin, ppi Diet: tube feeds Critical care time spent: 60 minutes excluding separately billable procedures Quality Stroke Does the patient have a stroke diagnosis?: No VTE Prior VTE?: No VTE Risk Level:: Medical - moderate - high VTE Device Contraindication: Treatment Not Indicated VTE Drug Contraindication: N/A - Med Ordered
--- NOTE | 2022-01-21 13:54 | MHC.CM.PN ---
Pt admitted to ICU w/hypotension secondary to sepsis. Review of past [facility] visits and discussion w/ICU care team notes pt is homeless, uses IV drugs and has untreated tricuspid vegetation/endocarditis. CM attempted to meet w/pt who was aggitated and requesting methadone. She states she does not have an address at this time and stays with friends when possible. States she has been going to [facility] for methadone. Called [phone] in an attempt to verify dosing: message left for a callback as clinic was closed. Pt's father here to visit with pt consent. Pt's father states pt has been homeless for awhile and resistant to treatments that involve placement. CM to reapproach pt for completion of CM assessment once pt's w/d is managed.
[2022-01-21 14:03] LABS: Alanine Aminotransferase 8 U/L (0-31); Albumin Level 3.1 g/dL (3.5-5.0); Alkaline Phosphatase 64 U/L (39-117); Anion Gap 18 (12-20); Aspartate Amino Transferase 14 U/L (5-31); Bilirubin Total 1.7 mg/dL (0.0-1.0); Blood Urea Nitrogen 41 mg/dL (9-16); Calcium 8.2 mg/dL (8.4-10.2); Carbon Dioxide 17 mmol/L (22-29); Chloride 100 mmol/L (96-108); Creatinine Clr Calc Pharmacy 25.3; Estimated Glomerular Filt Rate 22; Glucose Random 148 mg/dL (60-115); Magnesium 1.8 mg/dL (1.6-2.6); Phosphorus 3.6 mg/dL (2.7-4.5); Potassium 3.3 mmol/L (3.3-5.1); Sodium 132 mmol/L (135-145); Total Protein 6.4 g/dL (6.5-8.0)
[2022-01-21] MEDS: Midazolam HCl/NS 50 MG/50 ML PLAST..BAG IVCONT (14:05)
[2022-01-21] MEDS: Chlorhexidine Gluc Oral Rinse 15 ML MOUTHWASH BUCCAL ×2 (14:14→20:56)
[2022-01-21] MEDS: propofoL 1,000 MG/100 ML VIAL 17.55 MG IVCONT ×2 (14:49→20:13)
[2022-01-21 14:52] LABS: Appearance Urine Clear; Color Urine Yellow; Glucose Urine UA Negative (Negative); Leukocyte Esterase Urine Small (1+) (Negative); Nitrite Urine Negative (Negative); PH 5.5 (5.0-9.0); UMIC TRIGGER UACC YES; Urine Blood Large (3+) (Negative); Urine Ketones Negative (Negative); Urine Protein 100 (2+) mg/dL (Neg-Trace)
[2022-01-21 15:06] LABS: Bacteria Urine None Seen (None Seen); Hyaline Casts Urine 0-2 /LPF (0-2); RBC Urine >20 /HPF (0-2); UACC Culture Trigger YES
[2022-01-21 15:59] LABS: UPreg QC Valid YES; Urine Pregnancy NEGATIVE (NEGATIVE)
[2022-01-21 16:15] LABS: Amphetamine Screen Urine Not Detected (Not Detect); Barbiturates, Urine Not Detected (Not Detect); Benzodiazepines Screen Urine Not Detected (Not Detect); Cannabinoid Screen Urine Not Detected (Not Detect); Cocaine Screen Urine POSITIVE (Not Detect); Fentanyl, urine POSITIVE (Not Detect); Opiate Screen Urine POSITIVE (Not Detect); Phencyclidine Screen Urine Not Detected (Not Detect)
[2022-01-21] MEDS: fentaNYL citrate/NS 1,000 MCG/100 ML PLAST..BAG 20 MCG IVCONT ×2 (17:39→22:25)
[2022-01-21 18:02] LABS: Glucose, Whole Blood 130 mg/dL (60-115)
[2022-01-21 19:51] LABS: Venous Blood Gas Refer to POC result
[2022-01-21 19:51] LABS: VBG Base Excess -2.9 mmol/L; VBG HCO3 20 mmol/L (22-26); VBG pCO2 31 mmHg; VBG pH 7.42 (7.32-7.43); VBG pO2 58 mmHg
[2022-01-21 20:09] LABS: Anion Gap 21 (12-20); Blood Urea Nitrogen 42 mg/dL (9-16); Calcium 8.2 mg/dL (8.4-10.2); Carbon Dioxide 18 mmol/L (22-29); Chloride 102 mmol/L (96-108); Creatinine Clr Calc Pharmacy 24.4; Estimated Glomerular Filt Rate 21; Glucose Random 147 mg/dL (60-115); Phosphorus 4.3 mg/dL (2.7-4.5); Potassium 2.8 mmol/L (3.3-5.1); Sodium 138 mmol/L (135-145)
--- NOTE | 2022-01-21 20:27 | PC.NURSE ---
Assumed care at 07:00. Patient noncompliant/refusing labs, refusing hygienic care from RN and aides, refusing IV start. Patient is drowsy/lethargic/oriented to person, place, and date but not situation. Patient moves all extremities and is able to get OOB to commode with one assist. Patient does report intermittend dizziness. Patient in sinus rhythm on monitor, on room air breathing easily, was afebrile, but also with chills and rigors. Patient is interested in methadone, and reports having been a client at [facility] in [place], but not recently, and she would like to start methadone; MD aware. Patient with critical Co2 this morning of 8, MD notified and 1 am bicarb ordered and administered, then bicarb gtt started per MD order. Patient with very poor venous access, also on pressors: neosynephrine changed to levophed by MD, then changed back to eliza temporarily due to limitation in IV access; IV attempts made with no success by multiple RNs. Patient with very poor hygiene, knotted hair, refusing to get into hospital gown despite education as to importance from RN, aides, and MD. Patient OOB to commode with 1 assist for three bouts of diarrhea, MD aware. Patient noted to have stool covered sock tucked into the inside of her jeans, but refusing further examination or even removal of sock. Patient eventually beginning to become more lethargic and MD order for intubation for airway protection. Patient sedated with propofol about 12:20 PM and intubted with #7.5 ETT, was 25 cm at the lip, patient required high dose sedation propofol remains at 50, fentanyl gtt at 200; versed added per MD at 2; despite all sedation patient is arousable to voice and becomes agitated and has ventilator dysynchrony repeatedly--beginning to calm in evening. Patient on levophed for soft BP now. Patient with notable diaphoresis, random POC 130. Patient with rectal temp of 101.2, temporal artery temps 96.6. Sinus rhtyhm on monitor. Skin assessment shows rm anal redness blanchable and barrier cream applied, full body rash/small scabs; perineal area redness; bilateral heels with blanchable redness; right forearm with known full thicnkness wound secondary to IV drug self injection with kerlix wrap intact. Patient initially with no test or tox screen due to prior refusal, patient straight cathed per MD for 300 cc s concentrated urine, and tests sent. Patient supplied with purewick external catheter that is not functioning well due to repeated diarrhea leaking from newly placed rectal tube placed due to large amount of diarrhea. MD aware of diarrhea, no need for cdiff stool at this time per MD
[2022-01-21] MEDS: Potassium Chloride/H20 40 MEQ/100 ML PIGGYBACK 50 MEQ IV ×2 (20:35→22:25)
[2022-01-21] MEDS: vancomycin HCL 750 MG in 0.9 % Sodium Chloride 250 ML 265 MG IV (21:13)
[2022-01-22] VITALS (19 sets, daily range): BP systolic 97–128; BP diastolic 54–87; PULSE 66–91; RESP 10–22; TEMP 34–37.5; O2SAT 91–98; BMI 26.0
[2022-01-22] MEDS: propofoL 1,000 MG/100 ML VIAL 17.55 MG IVCONT ×3 (01:30→11:37)
[2022-01-22] MEDS: Piperacillin Sodium/Tazobactam 4.5 GM in 0.9 % Sodium Chloride 100 ML IV ×2 (01:34→07:48)
[2022-01-22] MEDS: Midazolam HCl/NS 50 MG/50 ML PLAST..BAG IVCONT (02:40)
[2022-01-22] MEDS: fentaNYL citrate/NS 1,000 MCG/100 ML PLAST..BAG 20 MCG IVCONT ×3 (03:23→13:12)
[2022-01-22 05:29] LABS: VBG Base Excess -7.7 mmol/L; VBG HCO3 16 mmol/L (22-26); VBG pCO2 30 mmHg; VBG pH 7.34 (7.32-7.43); VBG pO2 44 mmHg
[2022-01-22 05:38] LABS: Basophils Absolute Auto 0.2 X10*3/uL (0.0-0.2); Basophils Percent Auto 0.8 % (0-2); Eosinophils Absolute Auto 0.4 X10*3/uL (0.0-0.4); Eosinophils Percent Auto 1.7 % (0-4); Hematocrit 34.1 % (37.0-47.0); Hemoglobin 10.7 g/dl (12.0-16.0); Imm Gran Abs Auto 0.83 X10*3/uL (0.00-0.03); Lymphocytes Absolute Auto 4.8 X10*3/uL (1.2-4.9); Lymphocytes Percent Auto 23.2 % (20-40); MANUAL DIFF FLAG SCAN; Mean Corpuscular HGB Conc 31.4 g/dl (31.0-35.0); Mean Corpuscular Hemoglobin 26.4 pg (27.0-33.0); Mean Platelet Volume 10.9 fL (9.4-12.3); Monocytes Absolute Auto 2.6 X10*3/uL (0.1-1.2); Monocytes Percent Auto 12.6 % (2-11); Neutrophils Percent Auto 57.7 % (45-73); Platelet Count 188 X10*3/uL (160-400); Red Blood Count 4.06 X10*6/uL (4.20-5.50); Red Cell Distribution Width 15.7 % (11.0-16.0); SCAN SMEAR FLAG 1; White Blood Count 20.8 X10*3/uL (4.8-10.8)
[2022-01-22 05:57] LABS: SLIDE REVIEW VERIFIED
[2022-01-22] MEDS: Pantoprazole Sodium 40 MG/10 ML VIAL IVPUSH (05:57)
[2022-01-22 05:58] LABS: Albumin Level 2.8 g/dL (3.5-5.0); Blood Urea Nitrogen 42 mg/dL (9-16); Calcium 8.4 mg/dL (8.4-10.2); Creatinine Clr Calc Pharmacy 24.8; Estimated Glomerular Filt Rate 21; Glucose Random 111 mg/dL (60-115); Magnesium 2.2 mg/dL (1.6-2.6); Phosphorus 4.9 mg/dL (2.7-4.5)
[2022-01-22 06:16] LABS: Anion Gap 22 (12-20); Carbon Dioxide 15 mmol/L (22-29); Chloride 107 mmol/L (96-108); Potassium 3.7 mmol/L (3.3-5.1); Sodium 140 mmol/L (135-145)
[2022-01-22 06:22] LABS: Venous Blood Gas Refer to POC result
[2022-01-22] MEDS: Chlorhexidine Gluc Oral Rinse 15 ML MOUTHWASH BUCCAL ×2 (07:47→14:09)
[2022-01-22] MEDS: Heparin Sodium,Porcine 5,000 UNIT/ML VIAL 5000 UNIT SUBCUT (10:48)
--- NOTE | 2022-01-22 10:55 | P.PNCA_ITS ---
Subjective Subjective Date of Service: 01/22/22 Interval history: Seen and examined at bedside. she has been intubated since yesterday due to increasing agitation. On levophed. Antibiotics and sedation. making urine and Bp stable currently. Physical Exam Vital Signs: Last Vital Signs Temp 97.9 F 01/22/22 08:00 Pulse 80 01/22/22 10:00 Resp 10 L 01/22/22 10:00 BP 102/63 01/22/22 10:00 Pulse Ox 98 01/22/22 10:00 O2 Del Method 01/22/22 10:00 FiO2 40 01/22/22 10:00 BMI result Body Mass Index 26.0 GENERAL APPEARANCE: Sedated and intubated. NECK: no carotid bruit, positive jugular venous distention. SKIN: Right arm dressed where she has been injecting. HEART: no murmurs, regular rate and rhythm. LUNGS: clear to auscultation bilaterally. ABDOMEN: soft, nontender. EXTREMITIES: no edema. PERIPHERAL PULSES: equal. NEUROLOGIC: Sedated. Objective Labs and Meds Result diagrams: 01/22/22 05:18 01/22/22 05:18 Lab results: Laboratory Results - last 24 hr 01/21/22 01/21/22 01/21/22 09:04 13:06 13:06 WBC 13.1 H RBC 4.26 Hgb 11.1 L Hct 35.3 L MCV 82.9 MCH 26.1 L MCHC 31.4 RDW 15.7 Plt Count 141 L D MPV 10.1 Immature Gran % (Auto) 2.5 H Neut % (Auto) 72.9 Lymph % (Auto) 15.5 L Garrett % (Auto) 8.3 Eos % (Auto) 0.2 Baso % (Auto) 0.6 Lymph # (Auto) 2.0 Garrett # (Auto) 1.1 Eos # (Auto) 0.0 Baso # (Auto) 0.1 Abs Immat Gran (auto) 0.33 H Absolute Neuts (auto) 9.6 H Absolute Nucleated RBC 0.000 Nucleated RBC % (auto) 0.0 Smear Tech's Comments VERIFIED VBG pH VBG pCO2 VBG pO2 VBG HCO3 VBG O2 Saturation VBG Base Excess Sodium 132 L Potassium 3.3 Chloride 100 Carbon Dioxide 17 L Anion Gap 18 BUN 41 H Creatinine 2.66 H Estim Creat Clear Calc 25.3 Estimated GFR 22 POC Glucose Random Glucose 148 H Calcium 8.2 L D Phosphorus 3.6 Magnesium 1.8 Total Bilirubin 1.7 H AST 14 D ALT 8 Alkaline Phosphatase 64 Lactate Dehydrogenase Cancelled Troponin I High Sens Total Protein 6.4 L Albumin 3.1 L Urine Color Urine Appearance Urine pH Ur Specific [place] Urine Protein Urine Glucose (UA) Urine Ketones Urine Blood Urine Nitrite Ur Leukocyte Esterase Urine RBC Urine WBC Ur Squamous Epith Cells Urine Bacteria Hyaline Casts Urine Test Urine Opiates Screen Urine Fentanyl Screen Ur Barbiturates Screen Ur Phencyclidine Scrn Ur Amphetamines Screen U Benzodiazepines Scrn Urine Cocaine Screen U Marijuana (THC) Screen IgG Total IgA Total IgM ZAID Interpretation 01/21/22 01/21/22 01/21/22 13:06 13:06 13:07 WBC RBC Hgb Hct MCV MCH MCHC RDW Plt Count MPV Immature Gran % (Auto) Neut % (Auto) Lymph % (Auto) Garrett % (Auto) Eos % (Auto) Baso % (Auto) Lymph # (Auto) Garrett # (Auto) Eos # (Auto) Baso # (Auto) Abs Immat Gran (auto) Absolute Neuts (auto) Absolute Nucleated RBC Nucleated RBC % (auto) Smear Tech's Comments VBG pH 7.31 L VBG pCO2 33 VBG pO2 46 VBG HCO3 17 L VBG O2 Saturation 67.0 VBG Base Excess -7.7 Sodium Potassium Chloride Carbon Dioxide Anion Gap BUN Creatinine Estim Creat Clear Calc Estimated GFR POC Glucose Random Glucose Calcium Phosphorus Magnesium Total Bilirubin AST ALT Alkaline Phosphatase Lactate Dehydrogenase Troponin I High Sens 3.5 Total Protein Albumin Urine Color Urine Appearance Urine pH Ur Specific [place] Urine Protein Urine Glucose (UA) Urine Ketones Urine Blood Urine Nitrite Ur Leukocyte Esterase Urine RBC Urine WBC Ur Squamous Epith Cells Urine Bacteria Hyaline Casts Urine Test Urine Opiates Screen Urine Fentanyl Screen Ur Barbiturates Screen Ur Phencyclidine Scrn Ur Amphetamines Screen U Benzodiazepines Scrn Urine Cocaine Screen U Marijuana (THC) Screen IgG Total Cancelled IgA Total Cancelled IgM Cancelled ZAID Interpretation Cancelled 01/21/22 01/21/22 01/21/22 14:28 14:28 14:28 WBC RBC Hgb Hct MCV MCH MCHC RDW Plt Count MPV Immature Gran % (Auto) Neut % (Auto) Lymph % (Auto) Garrett % (Auto) Eos % (Auto) Baso % (Auto) Lymph # (Auto) Garrett # (Auto) Eos # (Auto) Baso # (Auto) Abs Immat Gran (auto) Absolute Neuts (auto) Absolute Nucleated RBC Nucleated RBC % (auto) Smear Tech's Comments VBG pH VBG pCO2 VBG pO2 VBG HCO3 VBG O2 Saturation VBG Base Excess Sodium Potassium Chloride Carbon Dioxide Anion Gap BUN Creatinine Estim Creat Clear Calc Estimated GFR POC Glucose Random Glucose Calcium Phosphorus Magnesium Total Bilirubin AST ALT Alkaline Phosphatase Lactate Dehydrogenase Troponin I High Sens Total Protein Albumin Urine Color Yellow Urine Appearance Clear Urine pH 5.5 Ur Specific [place] 1.010 Urine Protein 100 (2+) H Urine Glucose (UA) Negative Urine Ketones Negative Urine Blood Large (3+) H Urine Nitrite Negative Ur Leukocyte Esterase Small (1+) H Urine RBC >20 H Urine WBC 6-10 H Ur Squamous Epith Cells 3-5 Urine Bacteria None Seen Hyaline Casts 0-2 Urine Test NEGATIVE Urine Opiates Screen POSITIVE H Urine Fentanyl Screen POSITIVE H Ur Barbiturates Screen Not Detected Ur Phencyclidine Scrn Not Detected Ur Amphetamines Screen Not Detected U Benzodiazepines Scrn Not Detected Urine Cocaine Screen POSITIVE H U Marijuana (THC) Screen Not Detected IgG Total IgA Total IgM ZAID Interpretation 01/21/22 01/21/22 01/21/22 17:58 19:43 19:46 WBC RBC Hgb Hct MCV MCH MCHC RDW Plt Count MPV Immature Gran % (Auto) Neut % (Auto) Lymph % (Auto) Garrett % (Auto) Eos % (Auto) Baso % (Auto) Lymph # (Auto) Garrett # (Auto) Eos # (Auto) Baso # (Auto) Abs Immat Gran (auto) Absolute Neuts (auto) Absolute Nucleated RBC Nucleated RBC % (auto) Smear Tech's Comments VBG pH 7.42 VBG pCO2 31 VBG pO2 58 VBG HCO3 20 L VBG O2 Saturation 83.0 VBG Base Excess -2.9 Sodium 138 Potassium 2.8 L Chloride 102 Carbon Dioxide 18 L Anion Gap 21 H BUN 42 H Creatinine 2.76 H Estim Creat Clear Calc 24.4 Estimated GFR 21 POC Glucose 130 H Random Glucose 147 H Calcium 8.2 L Phosphorus 4.3 Magnesium 2.0 Total Bilirubin AST ALT Alkaline Phosphatase Lactate Dehydrogenase Troponin I High Sens Total Protein Albumin Urine Color Urine Appearance Urine pH Ur Specific [place] Urine Protein Urine Glucose (UA) Urine Ketones Urine Blood Urine Nitrite Ur Leukocyte Esterase Urine RBC Urine WBC Ur Squamous Epith Cells Urine Bacteria Hyaline Casts Urine Test Urine Opiates Screen Urine Fentanyl Screen Ur Barbiturates Screen Ur Phencyclidine Scrn Ur Amphetamines Screen U Benzodiazepines Scrn Urine Cocaine Screen U Marijuana (THC) Screen IgG Total IgA Total IgM ZAID Interpretation 01/22/22 01/22/22 01/22/22 05:18 05:18 05:23 WBC 20.8 H RBC 4.06 L Hgb 10.7 L Hct 34.1 L MCV 84.0 MCH 26.4 L MCHC 31.4 RDW 15.7 Plt Count 188 D MPV 10.9 Immature Gran % (Auto) 4.0 H Neut % (Auto) 57.7 Lymph % (Auto) 23.2 Garrett % (Auto) 12.6 H Eos % (Auto) 1.7 Baso % (Auto) 0.8 Lymph # (Auto) 4.8 Garrett # (Auto) 2.6 H Eos # (Auto) 0.4 Baso # (Auto) 0.2 Abs Immat Gran (auto) 0.83 H Absolute Neuts (auto) 12.0 H Absolute Nucleated RBC 0.000 Nucleated RBC % (auto) 0.0 Smear Tech's Comments VERIFIED VBG pH 7.34 VBG pCO2 30 VBG pO2 44 VBG HCO3 16 L VBG O2 Saturation 64.0 VBG Base Excess -7.7 Sodium 140 Potassium 3.7 D Chloride 107 Carbon Dioxide 15 L Anion Gap 22 H BUN 42 H Creatinine 2.72 H Estim Creat Clear Calc 24.8 Estimated GFR 21 POC Glucose Random Glucose 111 Calcium 8.4 Phosphorus 4.9 H Magnesium 2.2 Total Bilirubin AST ALT Alkaline Phosphatase Lactate Dehydrogenase Troponin I High Sens Total Protein Albumin 2.8 L Urine Color Urine Appearance Urine pH Ur Specific [place] Urine Protein Urine Glucose (UA) Urine Ketones Urine Blood Urine Nitrite Ur Leukocyte Esterase Urine RBC Urine WBC Ur Squamous Epith Cells Urine Bacteria Hyaline Casts Urine Test Urine Opiates Screen Urine Fentanyl Screen Ur Barbiturates Screen Ur Phencyclidine Scrn Ur Amphetamines Screen U Benzodiazepines Scrn Urine Cocaine Screen U Marijuana (THC) Screen IgG Total IgA Total IgM ZAID Interpretation Imaging Radiologist's impression: Impressions Chest X-Ray 01/21/22 13:25 IMPRESSION: Lines and tubes in good position. Progress Note: A&P Assessment and plan (1) Bacteremia due to Staphylococcus: Status: Acute (2) Polysubstance abuse: Status: Acute (3) Right ventricular dysfunction: Status: Acute Plan 26 female with polysubstance abuse, TV endocarditis with complete destruction of the valve and RV dilation. She presented with shock and has been on pressors and has been intubated at this stage. Given severe TR and RV dilation she will need surgical assessment for valve replacement. Also if shock progresses we may not have any support device like ECMO available in our institution. I think she needs to be transferred to [facility]. Will reach out to CT surgery. Time Spent With Patient Time: Total time spent is greater than 50% in coordination of care (as documented) at patient's floor/unit and/or counseling patient: Progress Note: Quality Stroke Does the patient have a stroke diagnosis?: No Procedures Date of Service Date of Service: 01/22/22
--- NOTE | 2022-01-22 11:27 | MHC.CM.PN ---
Addendum entered by Blanca Owens 01/22/22 14:50: Pt to be transferred to [facility]. Pt's father aware. Original Note: Pt now intubated and with R sided heart failure and severe tricuspic malfunction: May need transfer to [facility] for cardiac intervention. Multiple messages left with pt's father to update on above. Will await return call
--- NOTE | 2022-01-22 12:39 | P.DS_ITS ---
DS: Providers Provider Date of Service: 01/22/22 Date of admission: 01/20/22 22:43 Primary care physician: Unknown Physician Attending physician on admission: Dejan Bronson Consults: 01/21/22 10:15 Consult to Cardiology Routine Consulting Provider: [facility] Cardiovascular Services Reason for consultation: Tricuspid endocarditis with shock Has provider been notified: No Attending physician on discharge: Dejan Bronson DS: Transfer Hospital Acceptance Reason for Transfer: Cardiothoracic surgery evaluation Name of Facility: [facility] DS: Diagnosis Discharge Diagnosis (1) Bacteremia due to Staphylococcus: Status: Acute (2) Polysubstance abuse: Status: Acute (3) Right ventricular dysfunction: Status: Acute (4) Tricuspid valve regurgitation, infectious: Status: Acute (5) Acute respiratory failure: Status: Acute (6) Infective endocarditis of tricuspid valve: Status: Acute (7) Acute kidney injury: Status: Acute (8) Septic shock: Status: Acute DS: Summary Hospital Course Hospital Course: 26-year-old lady with underlying history of polysubstance abuse, prior history of tricuspid valve endocarditis and MSSA bacteremia with recent admission on 12/22/2021 with patient leaving AMA on 12/28/2021 admitted on 01/20/2022 with lightheadedness secondary to staphylococcal bacteremia with tricuspid endocarditis requiring vasopressor support. On 01/21/2022 patient with rapid development of hypoxia and tachyarrhythmia with widening QRS noncompliant with noninvasive supplemental oxygen requiring emergent intubation and ventilatory support. 2D echocardiogram with tricuspid vegetation destruction resulting in wide open tricuspid regurgitation and severe dilation of RA and RV with RV dysfunction. Patient evaluated by Cardiology service with recommendation for cardiothoracic surgery evaluation. Patient being transfer to [facility] for cardiac thoracic surgery evaluation. Vitals: Blood pressure 110/70, pulse 84, O2 sat 90% on AC 20/400/80/40% Const: General: no acute distress and other ( Sedated on the vent) Eyes: Sclerae: sclerae normal EOM: EOMs intact bilaterally Neck: Neck: Yes no lymphadenopathy, Yes trachea midline and Yes supple Resp: Effort & Inspection: normal respiratory effort and no respiratory distress Auscultation: clear to auscultation bilaterally Cardio: Rate: tachycardic Rhythm: regular rhythm Heart sounds: no gallops and no rubs, 3/6 murmur GI: Palpation (GI): Soft to palpation and Other GI palpation findings present ( Nontender) Auscultation: normal bowel sounds Skin: General skin exam: other ( multiple injection vergara) Extrem: General: Yes no pedal edema, No clubbing and No cyanosis discharge medications: Levophed drip propofol drip fentanyl drip vancomycin 750 q24H Zosyn 3.375 q6H chlorhexidine t.i.d. omeprazole 40 daily heparin 5000 subQ t.i.d. Status at Discharge Functional status at discharge: bed bound Time Spent with Patient Time attestation: Total time spent providing and/or coordinating discharge services: Discharge coordination time: Greater than 30 minutes Quality: Safe Use of Opioids Does Pt have an Active Cancer Diagnosis on the Problem List?: No Quality: Stroke Does the patient have a stroke diagnosis?: No Physical Exam Vital Signs: Vital Signs: Last Vital Signs Temp 98.6 F 01/22/22 12:00 Pulse 82 01/22/22 12:00 Resp 21 H 01/22/22 12:00 BP 117/76 01/22/22 12:00 Pulse Ox 97 01/22/22 12:00 O2 Del Method 01/22/22 12:00 FiO2 40 01/22/22 12:00 BMI result Body Mass Index 26.0 DS: Data Data Completed and Pending Completed studies during hospitalization [Text1]: Procedures Drainage of Left Pleural Cavity with Drainage Device, Percutaneous Approach (03/31/21) Drainage of Right Pleural Cavity with Drainage Device, Percutaneous Approach (03/31/21) Insertion of Infusion Device into Right Atrium, Percutaneous Approach (03/31/21) Introduction of Other Thrombolytic into Central Vein, Percutaneous Approach (03/31/21) Transfusion of Nonautologous Red Blood Cells into Peripheral Vein, Percutaneous Approach (03/31/21) Labs on day of discharge: Laboratory Results - last 24 hr 01/21/22 01/21/22 01/21/22 13:06 13:06 13:06 WBC 13.1 H RBC 4.26 Hgb 11.1 L Hct 35.3 L MCV 82.9 MCH 26.1 L MCHC 31.4 RDW 15.7 Plt Count 141 L D MPV 10.1 Immature Gran % (Auto) 2.5 H Neut % (Auto) 72.9 Lymph % (Auto) 15.5 L [place] % (Auto) 8.3 Eos % (Auto) 0.2 Baso % (Auto) 0.6 Lymph # (Auto) 2.0 [place] # (Auto) 1.1 Eos # (Auto) 0.0 Baso # (Auto) 0.1 Abs Immat Gran (auto) 0.33 H Absolute Neuts (auto) 9.6 H Absolute Nucleated RBC 0.000 Nucleated RBC % (auto) 0.0 Smear Tech's Comments VBG pH VBG pCO2 VBG pO2 VBG HCO3 VBG O2 Saturation VBG Base Excess Sodium 132 L Potassium 3.3 Chloride 100 Carbon Dioxide 17 L Anion Gap 18 BUN 41 H Creatinine 2.66 H Estim Creat Clear Calc 25.3 Estimated GFR 22 POC Glucose Random Glucose 148 H Calcium 8.2 L D Phosphorus 3.6 Magnesium 1.8 Total Bilirubin 1.7 H AST 14 D ALT 8 Alkaline Phosphatase 64 Lactate Dehydrogenase Cancelled Troponin I High Sens 3.5 Total Protein 6.4 L Albumin 3.1 L Urine Color Urine Appearance Urine pH Ur Specific [place] Urine Protein Urine Glucose (UA) Urine Ketones Urine Blood Urine Nitrite Ur Leukocyte Esterase Urine RBC Urine WBC Ur Squamous Epith Cells Urine Bacteria Hyaline Casts Urine Test Urine Opiates Screen Urine Fentanyl Screen Ur Barbiturates Screen Ur Phencyclidine Scrn Ur Amphetamines Screen U Benzodiazepines Scrn Urine Cocaine Screen U Marijuana (THC) Screen IgG Total IgA Total IgM ZAID Interpretation 01/21/22 01/21/22 01/21/22 13:06 13:07 14:28 WBC RBC Hgb Hct MCV MCH MCHC RDW Plt Count MPV Immature Gran % (Auto) Neut % (Auto) Lymph % (Auto) [place] % (Auto) Eos % (Auto) Baso % (Auto) Lymph # (Auto) [place] # (Auto) Eos # (Auto) Baso # (Auto) Abs Immat Gran (auto) Absolute Neuts (auto) Absolute Nucleated RBC Nucleated RBC % (auto) Smear Tech's Comments VBG pH 7.31 L VBG pCO2 33 VBG pO2 46 VBG HCO3 17 L VBG O2 Saturation 67.0 VBG Base Excess -7.7 Sodium Potassium Chloride Carbon Dioxide Anion Gap BUN Creatinine Estim Creat Clear Calc Estimated GFR POC Glucose Random Glucose Calcium Phosphorus Magnesium Total Bilirubin AST ALT Alkaline Phosphatase Lactate Dehydrogenase Troponin I High Sens Total Protein Albumin Urine Color Yellow Urine Appearance Clear Urine pH 5.5 Ur Specific [place] 1.010 Urine Protein 100 (2+) H Urine Glucose (UA) Negative Urine Ketones Negative Urine Blood Large (3+) H Urine Nitrite Negative Ur Leukocyte Esterase Small (1+) H Urine RBC >20 H Urine WBC 6-10 H Ur Squamous Epith Cells 3-5 Urine Bacteria None Seen Hyaline Casts 0-2 Urine Test Urine Opiates Screen Urine Fentanyl Screen Ur Barbiturates Screen Ur Phencyclidine Scrn Ur Amphetamines Screen U Benzodiazepines Scrn Urine Cocaine Screen U Marijuana (THC) Screen IgG Total Cancelled IgA Total Cancelled IgM Cancelled ZAID Interpretation Cancelled 01/21/22 01/21/22 01/21/22 14:28 14:28 17:58 WBC RBC Hgb Hct MCV MCH MCHC RDW Plt Count MPV Immature Gran % (Auto) Neut % (Auto) Lymph % (Auto) [place] % (Auto) Eos % (Auto) Baso % (Auto) Lymph # (Auto) [place] # (Auto) Eos # (Auto) Baso # (Auto) Abs Immat Gran (auto) Absolute Neuts (auto) Absolute Nucleated RBC Nucleated RBC % (auto) Smear Tech's Comments VBG pH VBG pCO2 VBG pO2 VBG HCO3 VBG O2 Saturation VBG Base Excess Sodium Potassium Chloride Carbon Dioxide Anion Gap BUN Creatinine Estim Creat Clear Calc Estimated GFR POC Glucose 130 H Random Glucose Calcium Phosphorus Magnesium Total Bilirubin AST ALT Alkaline Phosphatase Lactate Dehydrogenase Troponin I High Sens Total Protein Albumin Urine Color Urine Appearance Urine pH Ur Specific [place] Urine Protein Urine Glucose (UA) Urine Ketones Urine Blood Urine Nitrite Ur Leukocyte Esterase Urine RBC Urine WBC Ur Squamous Epith Cells Urine Bacteria Hyaline Casts Urine Test NEGATIVE Urine Opiates Screen POSITIVE H Urine Fentanyl Screen POSITIVE H Ur Barbiturates Screen Not Detected Ur Phencyclidine Scrn Not Detected Ur Amphetamines Screen Not Detected U Benzodiazepines Scrn Not Detected Urine Cocaine Screen POSITIVE H U Marijuana (THC) Screen Not Detected IgG Total IgA Total IgM ZAID Interpretation 01/21/22 01/21/22 01/22/22 19:43 19:46 05:18 WBC 20.8 H RBC 4.06 L Hgb 10.7 L Hct 34.1 L MCV 84.0 MCH 26.4 L MCHC 31.4 RDW 15.7 Plt Count 188 D MPV 10.9 Immature Gran % (Auto) 4.0 H Neut % (Auto) 57.7 Lymph % (Auto) 23.2 [place] % (Auto) 12.6 H Eos % (Auto) 1.7 Baso % (Auto) 0.8 Lymph # (Auto) 4.8 [place] # (Auto) 2.6 H Eos # (Auto) 0.4 Baso # (Auto) 0.2 Abs Immat Gran (auto) 0.83 H Absolute Neuts (auto) 12.0 H Absolute Nucleated RBC 0.000 Nucleated RBC % (auto) 0.0 Smear Tech's Comments VERIFIED VBG pH 7.42 VBG pCO2 31 VBG pO2 58 VBG HCO3 20 L VBG O2 Saturation 83.0 VBG Base Excess -2.9 Sodium 138 Potassium 2.8 L Chloride 102 Carbon Dioxide 18 L Anion Gap 21 H BUN 42 H Creatinine 2.76 H Estim Creat Clear Calc 24.4 Estimated GFR 21 POC Glucose Random Glucose 147 H Calcium 8.2 L Phosphorus 4.3 Magnesium 2.0 Total Bilirubin AST ALT Alkaline Phosphatase Lactate Dehydrogenase Troponin I High Sens Total Protein Albumin Urine Color Urine Appearance Urine pH Ur Specific [place] Urine Protein Urine Glucose (UA) Urine Ketones Urine Blood Urine Nitrite Ur Leukocyte Esterase Urine RBC Urine WBC Ur Squamous Epith Cells Urine Bacteria Hyaline Casts Urine Test Urine Opiates Screen Urine Fentanyl Screen Ur Barbiturates Screen Ur Phencyclidine Scrn Ur Amphetamines Screen U Benzodiazepines Scrn Urine Cocaine Screen U Marijuana (THC) Screen IgG Total IgA Total IgM ZAID Interpretation 01/22/22 01/22/22 05:18 05:23 WBC RBC Hgb Hct MCV MCH MCHC RDW Plt Count MPV Immature Gran % (Auto) Neut % (Auto) Lymph % (Auto) [place] % (Auto) Eos % (Auto) Baso % (Auto) Lymph # (Auto) [place] # (Auto) Eos # (Auto) Baso # (Auto) Abs Immat Gran (auto) Absolute Neuts (auto) Absolute Nucleated RBC Nucleated RBC % (auto) Smear Tech's Comments VBG pH 7.34 VBG pCO2 30 VBG pO2 44 VBG HCO3 16 L VBG O2 Saturation 64.0 VBG Base Excess -7.7 Sodium 140 Potassium 3.7 D Chloride 107 Carbon Dioxide 15 L Anion Gap 22 H BUN 42 H Creatinine 2.72 H Estim Creat Clear Calc 24.8 Estimated GFR 21 POC Glucose Random Glucose 111 Calcium 8.4 Phosphorus 4.9 H Magnesium 2.2 Total Bilirubin AST ALT Alkaline Phosphatase Lactate Dehydrogenase Troponin I High Sens Total Protein Albumin 2.8 L Urine Color Urine Appearance Urine pH Ur Specific [place] Urine Protein Urine Glucose (UA) Urine Ketones Urine Blood Urine Nitrite Ur Leukocyte Esterase Urine RBC Urine WBC Ur Squamous Epith Cells Urine Bacteria Hyaline Casts Urine Test Urine Opiates Screen Urine Fentanyl Screen Ur Barbiturates Screen Ur Phencyclidine Scrn Ur Amphetamines Screen U Benzodiazepines Scrn Urine Cocaine Screen U Marijuana (THC) Screen IgG Total IgA Total IgM ZAID Interpretation Preliminary micro results at discharge 01/21/22 Unknown Urine Culture - Preliminary Urine Catheterized - Lin Catheter No growth to date. 01/20/22 20:00 Blood Culture - Preliminary Blood - Venous Staphylococcus aureus 01/20/22 20:03 Blood Culture - Preliminary Blood - Venous Staphylococcus aureus Discharge Plan Discharge Anticipated Discharge Date/Time: 01/22/22 12:51 Patient Disposition: [facility] Discharge Diagnosis: tricuspid endocarditis with Staphylococcus aureus Referrals: Physician,Unknown J [Primary Care Provider] - 1 Week Discharge Medications: No Action No Known Home Meds Discharge Orders: Discharge Order (Routine); Ordered 01/22/22 Ordered By: Dejan Bronson Diet: tube feeds Activity on Discharge: bedrest Care Plan Goals: comply with plan of care Health Concerns: tricuspid endocarditis Plan of Treatment: cardiothoracic surgery evaluation Assessment: critically ill
[2022-01-22] MEDS: Midazolam HCl/PF 2 MG/2 ML VIAL IVPUSH (15:17)
--- NOTE | 2022-01-22 15:51 | PC.NURSE ---
[facility]
== END 2022-01-22 15:49 | disposition short-term general hospital (02) | DRG 720 ==
LOC: HO.ED 22:34 → HO.EDOVER 22:54 → HO.ICU 23:32
PROVIDERS: Admitting Provider Registered Nurse Community Health; Emergency Provider Internal Medicine; Visit Provider Internal Medicine Pulmonary Disease
DX: A41.9 Sepsis, unspecified organism (principal); J96.01 Acute respiratory failure with hypoxia; R65.21 Severe sepsis with septic shock; I01.1 Acute rheumatic endocarditis; L08.9 Local infection of the skin and subcutaneous tissue, unspecified; B95.61 Methicillin susceptible Staphylococcus aureus infection as the cause of diseases classified elsewhere; E87.2 Acidosis; F19.90 Other psychoactive substance use, unspecified, uncomplicated; F17.210 Nicotine dependence, cigarettes, uncomplicated; Z71.6 Tobacco abuse counseling; Z56.0 Unemployment, unspecified; Z88.1 Allergy status to other antibiotic agents; Z20.822 Contact with and (suspected) exposure to COVID-19
CPT/HCPCS: 36415; 71045; 80048; 80053; 80307; 81001; 81025; 82040; 82803; 82947; 83605; 83735; 84100; 84484; 85025; 87040; 87077; 87086; 87186; 87205; 87635; 93005; 93308; 94002; 94003; 96361; 96374; 96375; 99285; C1758; J2250; J2370; J2543; J3010; J3370; P9047

== ENCOUNTER 2022-11-04 22:08 | Inpatient (IN) | payer MEDICAID, SELFPAY ==
--- NOTE | ~2022-11-04 | XR_ITS ---
EXAMINATION: XR CHEST CLINICAL INFORMATION: Shortness of breath. COMPARISON: Chest radiograph 01/21/2022. TECHNIQUE: Frontal view of the chest was obtained. FINDINGS: Stable prominence of the cardiomediastinal silhouette. Mild chronic diffuse interstitial thickening without new superimposed focal airspace opacity. Stable blunting of the right lateral costophrenic angle that could be seen with trace pleural fluid or pleural thickening. No pneumothorax. No acute osseous findings. XR/XR chest 1V IMPRESSION: No new focal airspace opacity. Stable trace right pleural effusion versus pleural thickening. No pneumothorax.
--- NOTE | 2022-11-04 22:28 | ECG_ITS ---
Test Reason : TACHYCARDIA Blood Pressure : / mmHG Vent. Rate : 109 BPM Atrial Rate : 109 BPM P-R Int : 156 ms QRS Dur : 086 ms QT Int : 352 ms P-R-T Axes : 049 110 021 degrees QTc Int : 474 ms Sinus tachycardia Right axis deviation Low voltage QRS Septal infarct (cited on or before 21-JAN-2022) Abnormal ECG When compared with ECG of 21-JAN-2022 20:39, QT has shortened Referred By: Joseline Quach Electronically Signed By:INGE CARSON MD
[2022-11-04] MEDS: 0.9 % Sodium Chloride 1,000 ML 999 ML IV (22:40)
--- NOTE | 2022-11-04 22:42 | ED.GENADULT ---
HPI - General Adult General Chief complaint: Weakness Stated complaint: WEAKNESS Time Seen by Provider: 11/04/22 22:29 Source: patient Mode of arrival: EMS History of Present Illness HPI narrative: 27-year-old female, IVDA use, arrives via EMS with purportedly 1 week of increasing fatigue, body aches, difficulty breathing and palpitations that she states are the similar symptoms that she had previously when she experienced endocarditis. Patient states that she last snorted dope this morning and injected cocaine last night. Related Data Home Medications Medication Instructions Recorded Confirmed No Known Home Meds 12/22/21 11/04/22 Allergies Allergy/AdvReac Type Severity Reaction Status Date / Time cefazolin Allergy Rash Verified 12/25/21 15:52 Review of Systems Review of Systems: Positives and negatives as stated in HPI [facility] Past Medical History Source: nursing notes reviewed Medical History MELITON (acute kidney injury) Bacteremia Bacteremia Cocaine use disorder, severe, dependence Elevated blood pressure reading Fever History of endocarditis Opioid use disorder, severe, dependence Sepsis Septic embolism Substance abuse Wound of right upper extremity Family History Family History Mother No problems noted. Father No problems noted. Social History Social History Household Members: None and Other Housing: Homeless Housing Other:: homeless but states staying with friends Do you presently have visiting nurse or other home services: No Unable to assess alcohol history related to: Refusing to respond Alcohol intake: current Alcohol intake frequency: 3 or more drinks per day Alcohol type: beer Patient Tobacco Use Status: Current everyday Tobacco user Tobacco use type: Cigarette Substance Use Type: Crack/Cocaine and Heroin Advance Directives: No Advance Directives Information Provided: No service: No Current occupational status: unemployed Physical Exam ED Vital Signs: Vital Signs - 24 hr 11/04/22 22:47 Temperature 99.5 F Pulse Rate 111 H Respiratory Rate 16 Blood Pressure 104/54 L Pulse Oximetry 94 Oxygen Delivery Method Room Air BMI result Body Mass Index 4091.6 VITAL SIGNS: Reviewed. GENERAL: Well developed, well nourished, in no acute distress. HEAD: Normocephalic/atraumatic EYES: PERRLA, EOMI EARS: Ext canals without abnormality, TMs non-bulging and non-erythematous, but bilateral TMs appear to have an opacity to them but are not bulging. NOSE: Nares patent bilateral OROPHARYNX: no oral lesions noted, posterior pharynx clear and non-erythematous without noted tonsillar enlargement/erythema/exudates NECK: Supple, no adenopathy LUNGS: Normal breath sounds. No adventitious sounds or accessory muscle use. SpO2<93> room air CARDIOVASCULAR: Sinus tachycardia and rhythm with + murmur, no JVD or lower extremity edema. ABDOMEN: Soft, non-tender, non-distended with bowel sounds. MUSCULOSKELETAL: No tenderness, deformities, or effusions noted on gross inspection. EXTREMITIES: No cyanosis, clubbing or edema. SKIN: Inspection of the skin reveals no rashes NEUROLOGIC: Alert and oriented x 4. Strength and sensation to light touch were grossly intact x 4. Medications Administered Discontinued Medications Generic Name Dose Route Start Last Admin Trade Name Freq PRN Reason Stop Dose Admin Sodium Chloride 1,000 mls @ 999 mls/hr 11/04/22 22:30 11/04/22 22:40 Ns IV 11/04/22 23:30 999 mls/hr .Q1H1M [place] Administration Medical Decision Making Medical Decision Making [facility] Narrative: 27-year-old female with history and clinical presentation, DDX: Viral syndrome, bacteremia, endocarditis. Will give 1L IVF and abx, patient is refusing and ultrasound IV placement and only has an IV in the hand at this time. She is otherwise hemodynamically stable. I did appreciate a murmur on cardiac auscultation. I reviewed all investigations as well as speaking with the inpatient hospitalist, I do not appreciate any leukocytosis but there is a left shift with stable normocytic anemia and chronically stable thrombocytopenia. On chemistry indices patient is noted to have a hyponatremia without AMS or seizure like activity and patient is receiving gradual normal saline IV fluids and is noted to have a non-anion gap metabolic acidosis. Hospitalists has accepted admission and has been informs that patient is refusing ultrasound placement of IV that would enable us to perform a CT angio for PE protocol. Patient's vital signs have improved with IV fluids. Differential Diagnosis Differential Diagnoses: The differential diagnosis associated with the presentation includes Please see the discussion above Admission/Observation Consideration of admission/observation: Escalation of care including admission/observation considered Lab Data [facility] Lab Attestation statement: I reviewed the patient's lab results. Please see the discussion above 11/04/22 22:59 11/04/22 22:59 Labs: Lab Results 11/04/22 11/04/22 11/04/22 Range/Units 22:59 22:59 22:59 WBC 8.0 (4.8-10.8) X10*3/uL RBC 3.96 L (4.20-5.50) X10*6/uL Hgb 11.0 L (12.0-16.0) g/dl Hct 33.3 L (37.0-47.0) % MCV 84.1 (80.0-98.0) fL MCH 27.8 (27.0-33.0) pg MCHC 33.0 (31.0-35.0) g/dl RDW 13.9 (11.0-16.0) % Plt Count 152 L (160-400) X10*3/uL MPV 10.3 (9.4-12.3) fL Immature Gran % (Auto) 1.0 H (0.0-0.4) % Neut % (Auto) 77.9 H (45-73) % Lymph % (Auto) 15.8 L (20-40) % [place] % (Auto) 4.8 (2-11) % Eos % (Auto) 0.1 (0-4) % Baso % (Auto) 0.4 (0-2) % Lymph # (Auto) 1.3 (1.2-4.9) X10*3/uL [place] # (Auto) 0.4 (0.1-1.2) X10*3/uL Eos # (Auto) 0.0 (0.0-0.4) X10*3/uL Baso # (Auto) 0.0 (0.0-0.2) X10*3/uL Abs Immat Gran (auto) 0.08 H (0.00-0.03) X10*3/uL Absolute Neuts (auto) 6.2 (2.0-8.3) x10*3/uL Absolute Nucleated RBC 0.000 (0.0-0.012) X10*3/uL Nucleated RBC % (auto) 0.0 (0.0-0.2) /100WBC Sodium 121 L (135-145) mmol/L Potassium 4.0 (3.3-5.1) mmol/L Chloride 94 L (96-108) mmol/L Carbon Dioxide 16 L (22-29) mmol/L Anion Gap 15 (12-20) BUN 25 H (9-16) mg/dL Creatinine 1.02 (0.5-1.4) mg/dL Estim Creat Clear Calc -29.5 Estimated GFR > 60 Random Glucose 87 (60-115) mg/dL Lactic Acid 1.3 (0.5-2.0) mmol/L Calcium 8.4 (8.4-10.2) mg/dL Total Bilirubin 1.6 H (0.0-1.0) mg/dL AST 15 (5-31) U/L ALT 6 (0-31) U/L Alkaline Phosphatase 54 (39-117) U/L Total Protein 7.0 (6.5-8.0) g/dL Albumin 2.9 L (3.5-5.0) g/dL Ethyl Alcohol mg/dL Influenza Type A (PCR) (Negative) Influenza Type B (PCR) (Negative) RSV RNA Qual (PCR) (Negative) SARS-CoV-2 RNA (RT-PCR) (Negative) 11/04/22 11/04/22 Range/Units 22:59 23:05 WBC (4.8-10.8) X10*3/uL RBC (4.20-5.50) X10*6/uL Hgb (12.0-16.0) g/dl Hct (37.0-47.0) % MCV (80.0-98.0) fL MCH (27.0-33.0) pg MCHC (31.0-35.0) g/dl RDW (11.0-16.0) % Plt Count (160-400) X10*3/uL MPV (9.4-12.3) fL Immature Gran % (Auto) (0.0-0.4) % Neut % (Auto) (45-73) % Lymph % (Auto) (20-40) % [place] % (Auto) (2-11) % Eos % (Auto) (0-4) % Baso % (Auto) (0-2) % Lymph # (Auto) (1.2-4.9) X10*3/uL [place] # (Auto) (0.1-1.2) X10*3/uL Eos # (Auto) (0.0-0.4) X10*3/uL Baso # (Auto) (0.0-0.2) X10*3/uL Abs Immat Gran (auto) (0.00-0.03) X10*3/uL Absolute Neuts (auto) (2.0-8.3) x10*3/uL Absolute Nucleated RBC (0.0-0.012) X10*3/uL Nucleated RBC % (auto) (0.0-0.2) /100WBC Sodium (135-145) mmol/L Potassium (3.3-5.1) mmol/L Chloride (96-108) mmol/L Carbon Dioxide (22-29) mmol/L Anion Gap (12-20) BUN (9-16) mg/dL Creatinine (0.5-1.4) mg/dL Estim Creat Clear Calc Estimated GFR Random Glucose (60-115) mg/dL Lactic Acid (0.5-2.0) mmol/L Calcium (8.4-10.2) mg/dL Total Bilirubin (0.0-1.0) mg/dL AST (5-31) U/L ALT (0-31) U/L Alkaline Phosphatase (39-117) U/L Total Protein (6.5-8.0) g/dL Albumin (3.5-5.0) g/dL Ethyl Alcohol < 10 mg/dL Influenza Type A (PCR) NEGATIVE (Negative) Influenza Type B (PCR) NEGATIVE (Negative) RSV RNA Qual (PCR) NEGATIVE (Negative) SARS-CoV-2 RNA (RT-PCR) NEGATIVE (Negative) Independent Interpretation I performed an independent interpretation of an: EKG Interpretation: Sinus tachycardia, HR-109, no STEMI, [place]/QRS/QTC is within normal limits. External Record Review External record reviewed: Inpatient record, Outpatient record and Prior outpatient labs Critical Care Time Critical Care Time Critical Care Time: Yes Total Critical Care Time: 45 Attestation: I personally attest to this time spent taking care of the patient. Discharge Plan Discharge Clinical Impression: Endocarditis, Metabolic acidosis, Hyponatremia Patient Disposition: Admitted As Inpatient Prescriptions: No Action No Known Home Meds
[2022-11-04 22:47] VITALS: BP 104/54; BP 90/50; PULSE 111; PULSE 115; RESP 16; TEMP 37.5; O2SAT 94; O2SAT 95; BMI 4091.6
[2022-11-04 23:07] LABS: MANUAL DIFF FLAG NO
[2022-11-04 23:08] LABS: Basophils Percent Auto 0.4 % (0-2); Eosinophils Percent Auto 0.1 % (0-4); Hematocrit 33.3 % (37.0-47.0); Imm Gran Abs Auto 0.08 X10*3/uL (0.00-0.03); Lymphocytes Absolute Auto 1.3 X10*3/uL (1.2-4.9); Lymphocytes Percent Auto 15.8 % (20-40); Mean Corpuscular Hemoglobin 27.8 pg (27.0-33.0); Mean Corpuscular Volume 84.1 fL (80.0-98.0); Mean Platelet Volume 10.3 fL (9.4-12.3); Monocytes Absolute Auto 0.4 X10*3/uL (0.1-1.2); Monocytes Percent Auto 4.8 % (2-11); Neutrophils Absolute Auto 6.2 x10*3/uL (2.0-8.3); Neutrophils Percent Auto 77.9 % (45-73); Platelet Count 152 X10*3/uL (160-400); Red Blood Count 3.96 X10*6/uL (4.20-5.50); Red Cell Distribution Width 13.9 % (11.0-16.0)
[2022-11-04 23:18] LABS: Lactic Acid 1.3 mmol/L (0.5-2.0)
[2022-11-04 23:23] LABS: Alanine Aminotransferase 6 U/L (0-31); Albumin Level 2.9 g/dL (3.5-5.0); Alkaline Phosphatase 54 U/L (39-117); Anion Gap 15 (12-20); Aspartate Amino Transferase 15 U/L (5-31); Bilirubin Total 1.6 mg/dL (0.0-1.0); Blood Urea Nitrogen 25 mg/dL (9-16); Calcium 8.4 mg/dL (8.4-10.2); Carbon Dioxide 16 mmol/L (22-29); Chloride 94 mmol/L (96-108); Creatinine Clr Calc Pharmacy -29.5; Estimated Glomerular Filt Rate > 60; Glucose Random 87 mg/dL (60-115); Sodium 121 mmol/L (135-145)
[2022-11-04 23:38] LABS: Ethanol < 10 mg/dL
--- NOTE | 2022-11-04 23:46 | PC.NURSE ---
Attempted to place a second IV for CTA. Pt refused a second attempt, agreed to Dr Quach coming in with ultrasound. When CT came to get consent, pt refused testing and IV placement. Dr. Quach aware. Per Dr. Quach, pt is NPO. Pt has been asking for ice cream and is upset that she is not getting any.
[2022-11-04 23:49] LABS: Influenza A PCR NEGATIVE (Negative); Influenza B PCR NEGATIVE (Negative); Resp Syncy Virus RNA Qual PCR NEGATIVE (Negative); SARS COV2 PCR INHOUSE NEGATIVE (Negative)
[2022-11-05] VITALS (12 sets, daily range): BP systolic 74–105; BP diastolic 45–63; PULSE 74–104; RESP 14–26; TEMP 36.1–39.4; O2SAT 92–97; BMI 28.4
[2022-11-05] MEDS: vancomycin HCL 1,000 MG in 0.9 % Sodium Chloride 250 ML 270 MG IV (00:04)
--- NOTE | 2022-11-05 01:01 | MHC.EDTECH ---
patient refused second set of blood cultures.
--- NOTE | 2022-11-05 01:05 | PC.NURSE ---
Antibiotic administration delayed due to only having one point of access.
[2022-11-05] MEDS: vancomycin HCL 750 MG in 0.9 % Sodium Chloride 250 ML 265 MG IV ×2 (01:14→10:54)
[2022-11-05 01:35] LABS: Amphetamine Screen Urine Not Detected (Not Detect); Barbiturates, Urine Not Detected (Not Detect); Benzodiazepines Screen Urine Not Detected (Not Detect); Cannabinoid Screen Urine Not Detected (Not Detect); Cocaine Screen Urine POSITIVE (Not Detect); Fentanyl, urine POSITIVE (Not Detect); Opiate Screen Urine POSITIVE (Not Detect); Phencyclidine Screen Urine Not Detected (Not Detect)
[2022-11-05 01:45] LABS: Appearance Urine Clear; Color Urine Yellow; Glucose Urine UA Negative (Negative); Leukocyte Esterase Urine Large (3+) (Negative); Nitrite Urine Negative (Negative); PH 5.5 (5.0-9.0); UMIC TRIGGER UACC YES; Urine Blood Large (3+) (Negative); Urine Ketones Trace mg/dL (Negative); Urine Protein 30 (1+) mg/dL (Neg-Trace)
[2022-11-05 01:50] LABS: Bacteria Urine 1+ (None Seen); UACC Culture Trigger YES; WBC Urine >50 /HPF (0-5)
[2022-11-05] MEDS: Piperacillin Sodium/Tazobactam 3.375 GM in 0.9 % Sodium Chloride 50 ML IV ×3 (02:23→13:49)
[2022-11-05] MEDS: Acetaminophen 325 MG TABLET 650 MG PO (06:07)
--- NOTE | 2022-11-05 06:30 | PHA.PROG ---
Admission Date/Time: November 04, 2022 23:59 Indication: ENDOCARDITIS Weight in k kg Adjusted body weight in K.7 [place] body weight in K.5 Obesity Dosing Indication % IBW: Serum Creatinine - Last 168 Hours 11/04/22 22:59 Creatinine 1.02 Estimated CrCl and GFR - Last 168 Hours 11/04/22 22:59 Estim Creat Clear Calc -29.5 Estimated GFR > 60 Vancomycin Loading Dose: 1750 Current Vancomycin Dosing Regimen: 750 Q12 Vancomycin Monitoring using AUC goal of 400 - 600 range with trough as surrogate marker: 501 Date and Time for next Vancomycin Level to be drawn: 11/06/22 @0800 Pharmacist Comments on Vancomycin Plan: Vancomycin dosing will take advantage of [employer] as a clinical decision support tool that uses Bayesian modeling to calculate individual patient's pharmacokinetic parameters and forecast the patient's drug concentration time course with the target goal AUC 24 range of 400 - 600 mg/L/hr.
--- NOTE | 2022-11-05 06:38 | PM.IMHP ---
History of Present Illness Date of Service: 11/05/22 Chief Complaint: generalized aching 27-year-old active IV drug user uses dope and Coke as well as history of infective endocarditis of tricuspid valve in 2021 comes into the hospital with complaints of generalized body ache, headache, and feeling febrile and not too well. Patient otherwise denies any chest pain, no shortness of breath, no palpitations, no abdominal pain nausea or vomiting, no diarrhea constipation, no urinary symptoms and extremity edema. On arrival to the ED patient hemodynamically stable slightly elevated heart rate of 111, blood pressure 104/54 . Few hours later while in the ED patient did develop a fever of 103 Labs are significant for WBC count of 8.0, BUN of 25, total bili of 1.6, UA positive for leukocyte Estrace WBC, urine drug screen positive for opioids fentanyl and cocaine, chest x-ray shows no new focal airspace opacity patient started on IV antibiotics and will be admitted for further management Review of Systems Review of Systems: Yes all other systems are reviewed and are negative COUNT INCLUDES THE [facility] Medical History MELITON (acute kidney injury) Bacteremia Bacteremia Cocaine use disorder, severe, dependence Elevated blood pressure reading Fever History of endocarditis Opioid use disorder, severe, dependence Sepsis Septic embolism Substance abuse Wound of right upper extremity Family History Mother No problems noted. Father No problems noted. Social History Household Members: None and Other Housing: Homeless Housing Other:: homeless but states staying with friends Do you presently have visiting nurse or other home services: No Unable to assess alcohol history related to: Refusing to respond Alcohol intake: current Alcohol intake frequency: 3 or more drinks per day Alcohol type: beer Patient Tobacco Use Status: Current everyday Tobacco user Tobacco use type: Cigarette Smoked in Last 30 Days: Yes Use of substances other than those prescribed or required for medical reasons: Yes Substance Use Type: Crack/Cocaine and Heroin Substance Use Frequency: Daily Advance Directives: No Advance Directives Information Provided: No Patient : No service: No Current occupational status: unemployed Meds Allergies Allergy/AdvReac Type Severity Reaction Status Date / Time cefazolin Allergy Rash Verified 09/02/22 15:52 Active Medications: Current Medications Acetaminophen (Acetaminophen 325 Mg Tablet) 650 mg PO Q6H PRN PRN Reason: Pain, Mild (Pain Scale 1-3) Last Admin: 11/05/22 06:07 Dose: 650 mg Docusate Sodium (Docusate Sodium 100 Mg Capsule) 100 mg PO DAILY PRN PRN Reason: Constipation Enoxaparin Sodium (Enoxaparin Sodium 40 Mg/0.4 Ml Syringe) 40 mg SUBCUT Q24H [facility] Folic Acid (Folic Acid 1 Mg Tablet) 1 mg PO DAILY [facility] Piperacillin Sod/Tazobactam (Sod 3.375 gm/ Sodium Chloride) 50 mls @ 100 mls/hr IV Q6H [facility] Last Admin: 11/05/22 06:07 Dose: 100 mls/hr Vancomycin HCl 750 mg/ Sodium (Chloride) 265 mls @ 265 mls/hr IV Q12H [facility] Ondansetron HCl (Ondansetron Hcl 4 Mg/2 Ml Vial) 4 mg IVPUSH Q8H PRN PRN Reason: Nausea and Vomiting Pharmacy Consult (Consult Rx Vancomycin Dosing) 1 each MISCELLANE DAILY PRN PRN Reason: Consult order Pharmacy Consult (Consult Rx Vancomycin Dosing) 1 each MISCELLANE DAILY PRN PRN Reason: Consult order Sodium Chloride (0.9 % Sodium Chloride Flush 3 Ml Syringe) 3 ml IVFLUSH QSHIFT [facility] Last Admin: 11/05/22 01:05 Dose: Not Given Thiamine HCl (Thiamine Hcl 100 Mg Tablet) 100 mg PO DAILY [facility] Home Medications Medication Instructions Recorded Confirmed Last Taken Type No Known Home Meds 12/22/21 11/04/22 Unknown History Physical Exam Vital Signs and Narrative: Vital Signs: Last Vital Signs Temp 102.9 F H 11/05/22 05:19 Pulse 104 H 11/05/22 05:19 Resp 16 11/05/22 05:19 BP 105/54 L 11/05/22 05:19 Pulse Ox 94 11/05/22 05:19 O2 Del Method Room Air 11/05/22 00:55 BMI result Body Mass Index 28.4 Const: General: cooperative and no acute distress Orientation/consciousness: patient oriented x3 Eyes: General: appearance normal, both eyes and all related structures Pupils: Equal, round and reactive pupils present Resp: Effort & Inspection: normal respiratory effort Auscultation: clear to auscultation bilaterally Cardio: Other: positive for murmur best heard in the left 2nd intercostal region Rate: regular rate Rhythm: regular rhythm GI: Palpation (GI): Soft to palpation Auscultation: normal bowel sounds Skin: General skin exam: no rashes or lesions noted Neuro: General: patient oriented x3 Cranial nerves: Yes Equal, round and reactive pupils present Cognition (Neuro): normal cognition Extrem: General: Yes normal to inspection and Yes no pedal edema Results Labs 11/04/22 22:59 11/04/22 22:59 Labs: Laboratory Results - last 24 hr 11/04/22 11/04/22 11/04/22 22:59 22:59 22:59 MCV 84.1 MCH 27.8 MCHC 33.0 RDW 13.9 Plt Count 152 L MPV 10.3 Immature Gran % (Auto) 1.0 H Neut % (Auto) 77.9 H Lymph % (Auto) 15.8 L [place] % (Auto) 4.8 Eos % (Auto) 0.1 Baso % (Auto) 0.4 Lymph # (Auto) 1.3 [place] # (Auto) 0.4 Eos # (Auto) 0.0 Baso # (Auto) 0.0 Abs Immat Gran (auto) 0.08 H Absolute Neuts (auto) 6.2 Absolute Nucleated RBC 0.000 Nucleated RBC % (auto) 0.0 Anion Gap 15 Estim Creat Clear Calc -29.5 Estimated GFR > 60 Random Glucose 87 Lactic Acid 1.3 Calcium 8.4 Total Bilirubin 1.6 H AST 15 ALT 6 Alkaline Phosphatase 54 Total Protein 7.0 Albumin 2.9 L Urine Color Urine Appearance Urine pH Ur Specific [place] Urine Protein Urine Glucose (UA) Urine Ketones Urine Blood Urine Nitrite Ur Leukocyte Esterase Urine RBC Urine WBC Ur Squamous Epith Cells Urine Bacteria Hyaline Casts Urine Opiates Screen Urine Fentanyl Screen Ur Barbiturates Screen Ur Phencyclidine Scrn Ur Amphetamines Screen U Benzodiazepines Scrn Urine Cocaine Screen U Marijuana (THC) Screen Ethyl Alcohol Influenza Type A (PCR) Influenza Type B (PCR) RSV RNA Qual (PCR) SARS-CoV-2 RNA (RT-PCR) 11/04/22 11/04/22 11/05/22 22:59 23:05 01:18 MCV MCH MCHC RDW Plt Count MPV Immature Gran % (Auto) Neut % (Auto) Lymph % (Auto) [place] % (Auto) Eos % (Auto) Baso % (Auto) Lymph # (Auto) [place] # (Auto) Eos # (Auto) Baso # (Auto) Abs Immat Gran (auto) Absolute Neuts (auto) Absolute Nucleated RBC Nucleated RBC % (auto) Anion Gap Estim Creat Clear Calc Estimated GFR Random Glucose Lactic Acid Calcium Total Bilirubin AST ALT Alkaline Phosphatase Total Protein Albumin Urine Color Yellow Urine Appearance Clear Urine pH 5.5 Ur Specific [place] 1.010 Urine Protein 30 (1+) H Urine Glucose (UA) Negative Urine Ketones Trace Urine Blood Large (3+) H Urine Nitrite Negative Ur Leukocyte Esterase Large (3+) H Urine RBC 6-10 H Urine WBC >50 H Ur Squamous Epith Cells 6-10 Urine Bacteria 1+ Hyaline Casts 3-5 Urine Opiates Screen Urine Fentanyl Screen Ur Barbiturates Screen Ur Phencyclidine Scrn Ur Amphetamines Screen U Benzodiazepines Scrn Urine Cocaine Screen U Marijuana (THC) Screen Ethyl Alcohol < 10 Influenza Type A (PCR) NEGATIVE Influenza Type B (PCR) NEGATIVE RSV RNA Qual (PCR) NEGATIVE SARS-CoV-2 RNA (RT-PCR) NEGATIVE 11/05/22 01:18 MCV MCH MCHC RDW Plt Count MPV Immature Gran % (Auto) Neut % (Auto) Lymph % (Auto) [place] % (Auto) Eos % (Auto) Baso % (Auto) Lymph # (Auto) [place] # (Auto) Eos # (Auto) Baso # (Auto) Abs Immat Gran (auto) Absolute Neuts (auto) Absolute Nucleated RBC Nucleated RBC % (auto) Anion Gap Estim Creat Clear Calc Estimated GFR Random Glucose Lactic Acid Calcium Total Bilirubin AST ALT Alkaline Phosphatase Total Protein Albumin Urine Color Urine Appearance Urine pH Ur Specific [place] Urine Protein Urine Glucose (UA) Urine Ketones Urine Blood Urine Nitrite Ur Leukocyte Esterase Urine RBC Urine WBC Ur Squamous Epith Cells Urine Bacteria Hyaline Casts Urine Opiates Screen POSITIVE H Urine Fentanyl Screen POSITIVE H Ur Barbiturates Screen Not Detected Ur Phencyclidine Scrn Not Detected Ur Amphetamines Screen Not Detected U Benzodiazepines Scrn Not Detected Urine Cocaine Screen POSITIVE H U Marijuana (THC) Screen Not Detected Ethyl Alcohol Influenza Type A (PCR) Influenza Type B (PCR) RSV RNA Qual (PCR) SARS-CoV-2 RNA (RT-PCR) Imaging Radiologist's Impressions: Impressions Chest X-Ray 11/04/22 23:35 IMPRESSION: No new focal airspace opacity. Stable trace right pleural effusion versus pleural thickening. No pneumothorax. Assessment and Plan (1) Endocarditis: Qualifiers: Endocarditis type: infective Infective endocarditis organism: unspecified organism Chronicity: acute Qualified Code(s): I33.0 - Acute and subacute infective endocarditis Status: Acute (2) Hyponatremia: Status: Acute (3) Metabolic acidosis: Status: Acute Plan 27-year-old female past medical history of endocarditis comes into the hospital it body aches found to have fever, tachycardia, evidence of current endocarditis as well as hyponatremia and electrolyte imbalance # acute endocarditis - IV drug user, febrile, tachycardic, with audible murmur - will obtain echocardiogram - broad-spectrum IV antibiotics - follow cultures # hyponatremia - unclear etiology at this time - urine study pending - correct slowly with the correction goal of 6-8 in 24 hours - repeat BMP q.6 although she has a very hard stick and refuses most of the blood draws - nephrology consulted # metabolic acidosis - bicarb chronically low - follow BMP - will obtain VBG # IV drug use - wants methadone - consult addiction medicine # alcohol use disorder - drinks 5 beers/nightly - denies hs of withdrawal - will place on CIWA- thiamine and folic acid supplement DVT ppx: lovenox Given pt need for IV abx and need for further evaluation of endocarditis she will require min 2 night inpatient hospital stay Time Spent With Patient Time: Total time managing care of this patient today ____ minutes. Quality Stroke Does the patient have a stroke diagnosis?: No VTE Prior VTE?: No VTE Risk Level:: Medical - moderate - high VTE Device Contraindication: Treatment Not Indicated VTE Drug Contraindication: N/A - Med Ordered
[2022-11-05 06:59] LABS: Alanine Aminotransferase 5 U/L (0-31); Albumin Level 2.5 g/dL (3.5-5.0); Alkaline Phosphatase 50 U/L (39-117); Anion Gap 14 (12-20); Aspartate Amino Transferase 16 U/L (5-31); Bilirubin Total 1.5 mg/dL (0.0-1.0); Blood Urea Nitrogen 22 mg/dL (9-16); Calcium 8.4 mg/dL (8.4-10.2); Carbon Dioxide 18 mmol/L (22-29); Chloride 98 mmol/L (96-108); Creatinine Clr Calc Pharmacy 77.5; Estimated Glomerular Filt Rate > 60; Glucose Random 97 mg/dL (60-115); Sodium 126 mmol/L (135-145); Total Protein 6.1 g/dL (6.5-8.0)
--- NOTE | 2022-11-05 07:00 | CA_ITS ---
Transthoracic Echocardiogram Patient (Last, First, Middle): Vanda Ch, Gender: Female Date of : 1995 Age: 27 Procedure Date: 11/05/2022 Procedure Type: Transthoracic Echocardiogram Location: ER Height: 152.4 cm Weight: 65.77 kg BSA: 1.63 m2 Heart Rate: 77 bpm BP: 93 / 50 mmHg Computer Animator: LAKESHA Referring MD: Xavier Corea MD Symptoms: IVDU, Concern for endocarditis Study Quality: Fair ECG Rhythm: Sinus Conclusions: - 1. No obvious vegetation seen on this study 2. Wide open torrential tricuspid regurgitation secondary to work tricuspid valve coaptation 3. Severely dilated right-sided chambers 4. Mildly reduced LV systolic function 5. Trivial pericardial effusion Findings Left Ventricle Normal left ventricular cavity size. There is normal left ventricular wall thickness. The left ventricular systolic function is mildly decreased. The visually estimated ejection fraction is between 45-50%. There is a flattened septum in diastole ( D shaped left ventricle) consistent with right ventricular volume overload. Spectral Doppler is indicative of a normal filling pattern. Right Ventricle Severely increased right ventricular cavity size. Atria The left atrium is normal in size. There is no evidence of interatrial shunt. The right atrium is severely dilated. Aortic Valve Normal aortic valve structure and function. There is no aortic valve stenosis. There is no aortic valve regurgitation. Mitral Valve Normal mitral valve structure and function. There is trace mitral valve regurgitation. There is no mitral valve stenosis. Pulmonic Valve The pulmonic valve was not well visualized. Tricuspid Valve There is mild anterior, mild posterior, and mild septal tricuspid leaflet thickening. There is severe tricuspid valve regurgitation. The tricuspid regurgitation jet is directed centrally. Great Vessels All visible segments of the aorta are normal in size. The pulmonary artery was not well visualized. Venous The inferior vena cava is severely dilated and collapses less than 50% with inspiration. Hepatic vein flow indicates systolic flow reversal. Pericardium/Pleural There is a trivial circumferential pericardial effusion. Prior Study Comparison Changes noted compared to prior study dated: 01/21/2022. LV systolic function is marginally reduced Measurements 2D Linear Measurements IVSd: 0.70 0.6-0.9/0.6-1.0 cm LVIDd: 4.20 3.9-5.3/4.2-5.9 cm LVIDd Index: 2.58 2.4-3.2/2.2-3.1 cm/m2 LVIDs: 3.40 2.0-3.6 cm LVPWd: 0.80 0.7-1.1 cm LA Diam: 3.40 2.7-3.8/3.0-4.0 cm LAIDs Index: 2.09 1.5-2.3 cm/m2 LV Mass: 115.55 67-162/88-224 g LV Mass Index: 70.89 43-95/49-115 g/m2 LVOT Diam: 1.80 3.0+(-)1.3 cm 2D Systolic Function EF 4C: 42.80 >55% EF 2C: 53.00 >55% EF BiP: 46.50 >55% Mitral Valve MV Pk E: 0.68 MV PK A: 0.53 MV Decel Time: 169.00 E/A: 1.30 E'Lateral: 11.30 E'Medial: 10.10 E/E' Med: 6.80 E/E' Lat: 6.00 PHT: 50.00 MVA PHT: 4.40 Decel [place]: 4.04 Aortic Valve AoV Pk [place]: 1.04 AoV Mn [place]: 0.69 AoV VTI: 0.18 AoV Pk Grad: 4.00 Aov Mn Grad: 2.00 CARLOS ALBERTO Cont.VTI: 1.87 LVOT LVOT Pk [place]: 0.69 LVOT Mn [place]: 0.50 LVOT VTI: 0.13 LVOT Pk Grad: 2.00 LVOT Mn Grad: 1.00 LVOT Diam: 1.80 LVOT Area: 2.54 Diastolic Function MV Pk E: 0.68 MV Pk A: 0.53 E/A: 1.30 E'Medial: 10.10 E/E' Med: 6.80 E' Laterial: 11.30 E/E' Lat: 6.00 Right Ventricle TAPSE (mm): 31.30 TVS' [place]: 21.00 Tricuspid Valve TV Pk [place]: 1.23 TV Mn [place]: 0.97 TV Pk Grad: 6.00 TV Mn Grad: 4.00 TR Pk [place]: 2.31 TR Pk Grad: 21.00 RA Press: 15.00 RVSP: 36.00 Great Vessels Aorta Sinus of Valsalva: 2.70 2.0-3.5 cm Ao Asc: 2.50 2.1-3.4 cm Pulmonary Valve PV Pk Kameron: 0.94 Peak PV Grad: 4.00 Updated in Other Vendor System with Status of Final Nain Casanova MD electronically signed on 11/05/2022 11:21:02 AM with status of Final
--- NOTE | 2022-11-05 07:07 | PHA.MEDREC ---
Pharmacy Consult ? Medication Reconciliation Pharmacy has reviewed the medication reconciliation completed by nursing. Kesha Rachel, JoannaD
[2022-11-05] MEDS: 0.9 % Sodium Chloride 1,000 ML 999 ML IV (07:45)
[2022-11-05] MEDS: 0.9 % Sodium Chloride Flush 3 ML SYRINGE IVFLUSH (07:45)
--- NOTE | 2022-11-05 09:31 | PC.NURSE ---
ultra sound at bedside to complete ECHO
--- NOTE | 2022-11-05 10:17 | MHC.RECOVRN ---
Met with pt in ED13 after consult placed to Addiction Medicine and report of patient experiencing withdrawal. Pt admitted to [facility] for further workup and treatment after presenting feeling weak, fatigue, and body pain for the past week, which she reported are the same symptoms she had with endocarditis. Pt currently having echo done so discussion was brief. Pt reports using heroin, a few bags yesterday with typical use being one bundle daily, IV. Pt currently diaphoretic, states my entire bed is soaked. Pt appears restless and anxious. Would like to initiate methadone. Will return for further interview. Jinny Wright APRN, aware.
[2022-11-05 10:37] LABS: VBG Base Excess -5.5 mmol/L; VBG HCO3 16 mmol/L (22-26); VBG pCO2 22 mmHg; VBG pH 7.47 (7.32-7.43); VBG pO2 227 mmHg
[2022-11-05 10:37] LABS: Venous Blood Gas Refer to POC result
[2022-11-05] MEDS: Folic Acid 1 MG TABLET PO (10:54)
[2022-11-05] MEDS: Thiamine HCL 100 MG TABLET PO (10:54)
[2022-11-05] MEDS: methADONE HCl 20 MG/2 ML ORAL.CONC PO (10:54)
[2022-11-05 10:57] LABS: Anion Gap 10 (12-20); Blood Urea Nitrogen 21 mg/dL (9-16); Calcium 7.5 mg/dL (8.4-10.2); Carbon Dioxide 16 mmol/L (22-29); Chloride 106 mmol/L (96-108); Creatinine Clr Calc Pharmacy 88.8; Estimated Glomerular Filt Rate > 60; Glucose Random 116 mg/dL (60-115); Potassium 3.3 mmol/L (3.3-5.1); Sodium 129 mmol/L (135-145)
--- NOTE | 2022-11-05 11:46 | MHC.CM.PN ---
Met with patient for CM assessment. Reports living in a friends apartment for about a year and reports it being a steady residence. Address is: [address] [place] [address] [address]. Reports not having PCP. Will need transport @ D/C. Educated re: HCP but does not want to complete on. Patient with active IV substance use- please refer to Addiction e m assembler note. D/C plan home no services.
[2022-11-05] MEDS: PHENobarbitaL sodium 130 MG/ML IM ONCE 180 MG IM (11:59)
--- NOTE | 2022-11-05 13:04 | HO.PM.IMPN ---
Subjective Subjective Date of Service: 11/05/22 Interval History: Seen and evaluated this morning Feels weak and tired, reporting chills Na improved to 129 CIWA score of 10 Review of Systems Review of Systems: Yes all other systems are reviewed and are negative Physical Exam Vital Signs: Vital Signs: Last Vital Signs Temp 99.1 F 11/05/22 07:09 Pulse 74 11/05/22 10:39 Resp 18 11/05/22 10:39 BP 90/54 L 11/05/22 10:39 Pulse Ox 97 11/05/22 10:39 O2 Del Method Room Air 11/05/22 07:09 BMI result Body Mass Index 28.4 Const: Other: Constitutional : Awake, interactive, not in distress Neck : Normal inspection, Supple Cardiovascular : RRR, no JVP, no lower extremity edema, systolic murmur over right ventricle Respiratory : fair bilateral air entry, no crackles, wheezes or rhonchi Gastrointestinal: soft, lax, Normal bowel sounds, Non tender Skin : Warm, Dry Neurological : Alert & oriented x3, No focal deficit Objective Data Active Medications Acetaminophen (Acetaminophen 325 Mg Tablet) 650 mg PO Q6H PRN PRN Reason: Pain, Mild (Pain Scale 1-3) Last Admin: 11/05/22 06:07 Dose: 650 mg Documented By: RODOLFO Docusate Sodium (Docusate Sodium 100 Mg Capsule) 100 mg PO DAILY PRN PRN Reason: Constipation Enoxaparin Sodium (Enoxaparin Sodium 40 Mg/0.4 Ml Syringe) 40 mg SUBCUT Q24H [facility] [place] Folic Acid (Folic Acid 1 Mg Tablet) 1 mg PO DAILY [facility] [place] Last Admin: 11/05/22 10:54 Dose: 1 mg Documented By: JENNI Piperacillin Sod/Tazobactam (Sod 3.375 gm/ Sodium Chloride) 50 mls @ 100 mls/hr IV Q6H [facility] [place] Last Infusion: 11/05/22 06:42 Dose: 0 mls/hr Documented By: RODOLFO Vancomycin HCl 750 mg/ Sodium (Chloride) 265 mls @ 265 mls/hr IV Q12H [facility] [place] Last Infusion: 11/05/22 12:00 Dose: 0 mls/hr Documented By: JENNI Ondansetron HCl (Ondansetron Hcl 4 Mg/2 Ml Vial) 4 mg IVPUSH Q8H PRN PRN Reason: Nausea and Vomiting Pharmacy Consult (Consult Rx Vancomycin Dosing) 1 each MISCELLANE DAILY PRN PRN Reason: Consult order Pharmacy Consult (Consult Rx Vancomycin Dosing) 1 each MISCELLANE DAILY PRN PRN Reason: Consult order Pharmacy Consult (Consult Rx Etoh Phenob Im/Po) 1 each MISCELLANE ONCE PRN; Protocol PRN Reason: Consult order Phenobarbital (Phenobarbital 30 Mg Tablet) 30 mg PO BID [facility]; Protocol Stop: 11/07/22 21:01 Phenobarbital (Phenobarbital 15 Mg Tablet) 15 mg PO BID [facility]; Protocol Stop: 11/09/22 21:01 Phenobarbital (Phenobarbital 15 Mg Tablet) 15 mg PO DAILY [facility]; Protocol Stop: 11/11/22 09:01 Phenobarbital Sodium (Phenobarbital Sodium 130 Mg/Ml Vial Im Q3hx2) 140 mg IM Q3H [facility]; Protocol Stop: 11/05/22 17:01 Sodium Chloride (0.9 % Sodium Chloride Flush 3 Ml Syringe) 3 ml IVFLUSH QSHIFT [facility] [place] Last Admin: 11/05/22 07:45 Dose: 3 ml Documented By: JENNI Thiamine HCl (Thiamine Hcl 100 Mg Tablet) 100 mg PO DAILY [facility] Last Admin: 11/05/22 10:54 Dose: 100 mg Documented By: JENNI Labs 11/04/22 22:59 11/05/22 10:24 Labs: Laboratory Results - last 24 hr 11/04/22 11/04/22 11/04/22 22:59 22:59 22:59 MCV 84.1 MCH 27.8 MCHC 33.0 RDW 13.9 Plt Count 152 L MPV 10.3 Immature Gran % (Auto) 1.0 H Neut % (Auto) 77.9 H Lymph % (Auto) 15.8 L [place] % (Auto) 4.8 Eos % (Auto) 0.1 Baso % (Auto) 0.4 Lymph # (Auto) 1.3 [place] # (Auto) 0.4 Eos # (Auto) 0.0 Baso # (Auto) 0.0 Abs Immat Gran (auto) 0.08 H Absolute Neuts (auto) 6.2 Absolute Nucleated RBC 0.000 Nucleated RBC % (auto) 0.0 VBG pH VBG pCO2 VBG pO2 VBG HCO3 VBG O2 Saturation VBG Base Excess Anion Gap 15 Estim Creat Clear Calc -29.5 Estimated GFR > 60 Random Glucose 87 Lactic Acid 1.3 Calcium 8.4 Total Bilirubin 1.6 H AST 15 ALT 6 Alkaline Phosphatase 54 Total Protein 7.0 Albumin 2.9 L Urine Color Urine Appearance Urine pH Ur Specific [place] Urine Protein Urine Glucose (UA) Urine Ketones Urine Blood Urine Nitrite Ur Leukocyte Esterase Urine RBC Urine WBC Ur Squamous Epith Cells Urine Bacteria Hyaline Casts Urine Opiates Screen Urine Fentanyl Screen Ur Barbiturates Screen Ur Phencyclidine Scrn Ur Amphetamines Screen U Benzodiazepines Scrn Urine Cocaine Screen U Marijuana (THC) Screen Ethyl Alcohol Influenza Type A (PCR) Influenza Type B (PCR) RSV RNA Qual (PCR) SARS-CoV-2 RNA (RT-PCR) 11/04/22 11/04/22 11/05/22 22:59 23:05 01:18 MCV MCH MCHC RDW Plt Count MPV Immature Gran % (Auto) Neut % (Auto) Lymph % (Auto) [place] % (Auto) Eos % (Auto) Baso % (Auto) Lymph # (Auto) [place] # (Auto) Eos # (Auto) Baso # (Auto) Abs Immat Gran (auto) Absolute Neuts (auto) Absolute Nucleated RBC Nucleated RBC % (auto) VBG pH VBG pCO2 VBG pO2 VBG HCO3 VBG O2 Saturation VBG Base Excess Anion Gap Estim Creat Clear Calc Estimated GFR Random Glucose Lactic Acid Calcium Total Bilirubin AST ALT Alkaline Phosphatase Total Protein Albumin Urine Color Yellow Urine Appearance Clear Urine pH 5.5 Ur Specific [place] 1.010 Urine Protein 30 (1+) H Urine Glucose (UA) Negative Urine Ketones Trace Urine Blood Large (3+) H Urine Nitrite Negative Ur Leukocyte Esterase Large (3+) H Urine RBC 6-10 H Urine WBC >50 H Ur Squamous Epith Cells 6-10 Urine Bacteria 1+ Hyaline Casts 3-5 Urine Opiates Screen Urine Fentanyl Screen Ur Barbiturates Screen Ur Phencyclidine Scrn Ur Amphetamines Screen U Benzodiazepines Scrn Urine Cocaine Screen U Marijuana (THC) Screen Ethyl Alcohol < 10 Influenza Type A (PCR) NEGATIVE Influenza Type B (PCR) NEGATIVE RSV RNA Qual (PCR) NEGATIVE SARS-CoV-2 RNA (RT-PCR) NEGATIVE 11/05/22 11/05/22 11/05/22 01:18 06:02 10:24 MCV MCH MCHC RDW Plt Count MPV Immature Gran % (Auto) Neut % (Auto) Lymph % (Auto) [place] % (Auto) Eos % (Auto) Baso % (Auto) Lymph # (Auto) [place] # (Auto) Eos # (Auto) Baso # (Auto) Abs Immat Gran (auto) Absolute Neuts (auto) Absolute Nucleated RBC Nucleated RBC % (auto) VBG pH VBG pCO2 VBG pO2 VBG HCO3 VBG O2 Saturation VBG Base Excess Anion Gap 14 10 L Estim Creat Clear Calc 77.5 88.8 Estimated GFR > 60 > 60 Random Glucose 97 116 H Lactic Acid Calcium 8.4 7.5 L D Total Bilirubin 1.5 H AST 16 ALT 5 Alkaline Phosphatase 50 Total Protein 6.1 L Albumin 2.5 L Urine Color Urine Appearance Urine pH Ur Specific [place] Urine Protein Urine Glucose (UA) Urine Ketones Urine Blood Urine Nitrite Ur Leukocyte Esterase Urine RBC Urine WBC Ur Squamous Epith Cells Urine Bacteria Hyaline Casts Urine Opiates Screen POSITIVE H Urine Fentanyl Screen POSITIVE H Ur Barbiturates Screen Not Detected Ur Phencyclidine Scrn Not Detected Ur Amphetamines Screen Not Detected U Benzodiazepines Scrn Not Detected Urine Cocaine Screen POSITIVE H U Marijuana (THC) Screen Not Detected Ethyl Alcohol Influenza Type A (PCR) Influenza Type B (PCR) RSV RNA Qual (PCR) SARS-CoV-2 RNA (RT-PCR) 11/05/22 10:30 MCV MCH MCHC RDW Plt Count MPV Immature Gran % (Auto) Neut % (Auto) Lymph % (Auto) [place] % (Auto) Eos % (Auto) Baso % (Auto) Lymph # (Auto) [place] # (Auto) Eos # (Auto) Baso # (Auto) Abs Immat Gran (auto) Absolute Neuts (auto) Absolute Nucleated RBC Nucleated RBC % (auto) VBG pH 7.47 H VBG pCO2 22 VBG pO2 227 VBG HCO3 16 L VBG O2 Saturation 100.0 VBG Base Excess -5.5 Anion Gap Estim Creat Clear Calc Estimated GFR Random Glucose Lactic Acid Calcium Total Bilirubin AST ALT Alkaline Phosphatase Total Protein Albumin Urine Color Urine Appearance Urine pH Ur Specific [place] Urine Protein Urine Glucose (UA) Urine Ketones Urine Blood Urine Nitrite Ur Leukocyte Esterase Urine RBC Urine WBC Ur Squamous Epith Cells Urine Bacteria Hyaline Casts Urine Opiates Screen Urine Fentanyl Screen Ur Barbiturates Screen Ur Phencyclidine Scrn Ur Amphetamines Screen U Benzodiazepines Scrn Urine Cocaine Screen U Marijuana (THC) Screen Ethyl Alcohol Influenza Type A (PCR) Influenza Type B (PCR) RSV RNA Qual (PCR) SARS-CoV-2 RNA (RT-PCR) Assessment and Plan (1) Metabolic acidosis: Status: Acute (2) Hyponatremia: Status: Acute (3) Fever: Status: Inactive Plan 27-year-old female past medical history of endocarditis comes into the hospital it body aches found to have fever, tachycardia, evidence of current endocarditis as well as hyponatremia and electrolyte imbalance # Fever 2/2 acute endocarditis IV drug user, febrile, tachycardic, with audible murmur Hx of MSSA Endocarditis 01/14 obtain echocardiogram broad-spectrum IV antibiotics follow cultures get ID eval # hyponatremia urine studies not done yet corrected to 129 overnight start D5-1/2NS for now repeat BMP q.6 nephrology consulted # metabolic acidosis bicarb chronically low follow BMP VBG showing compensation # IV drug use addiction medicine to start MEthadone # alcohol use disorder with withdrawal drinks 5 beers/nightly scoring 10 on CIWA, start PHenobarbital protocol thiamine and folic acid supplement DVT ppx: lovenox Given pt need for IV abx and need for further evaluation of endocarditis she will overnight inpatient hospital stay Time Spent With Patient Time: Total time managing care of this patient today ____ minutes. Quality Stroke Does the patient have a stroke diagnosis?: No VTE Prior VTE?: No VTE Risk Level:: Medical - moderate - high VTE Device Contraindication: Treatment Not Indicated VTE Drug Contraindication: N/A - Med Ordered
--- NOTE | 2022-11-05 13:41 | P.PNADD_ITS ---
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 Currently medically admitted with endocarditis. Seen earlier this morning by warehouse production worker and noted to be diaphoretic and c/o withdrawal sx. Requesting methadone dose. Methadone 20mg administered with good effect. Patient seen in follow up by this magnetic tape typewriter operator, appearing comfortable. No longer diaphoretic, and patient reporting dose was helpful. Drowsy and lethargic--unable to continue interview beyond this. Last use reported as being prior to admission. She is not currently engaged with any treatment providers, but in the past had been at [facility]. Reported ETOH use during admission assessment, in previous admissions this had not been the case. Review of Systems Constitutional: Reports as per HPI Mental Status Exam Mental Status Exam Patient Appearance: Fatigued Level of Consciousness: Drowsy Diagnostics Vital Signs (24Hr): Vital Signs - 24 hr 11/04/22 22:47 11/05/22 00:55 11/05/22 05:19 Temperature 99.5 F 101.1 F H 102.9 F H Pulse Rate 111 H 100 104 H Respiratory Rate 16 18 16 Blood Pressure 104/54 L 104/55 L 105/54 L Pulse Oximetry 94 94 94 Oxygen Delivery Method Room Air Room Air 11/05/22 06:42 11/05/22 07:09 11/05/22 10:39 Temperature 99.0 F 99.1 F Pulse Rate 96 74 Respiratory Rate 18 18 Blood Pressure 93/50 L 90/54 L Pulse Oximetry 94 97 Oxygen Delivery Method Room Air BMI result Body Mass Index 28.4 Labs 11/04/22 22:59 11/05/22 10:24 Labs: Laboratory Results - last 48 hr 11/04/22 11/04/22 11/04/22 22:59 22:59 22:59 WBC 8.0 RBC 3.96 L Hgb 11.0 L Hct 33.3 L MCV 84.1 MCH 27.8 MCHC 33.0 RDW 13.9 Plt Count 152 L MPV 10.3 Immature Gran % (Auto) 1.0 H Neut % (Auto) 77.9 H Lymph % (Auto) 15.8 L [place] % (Auto) 4.8 Eos % (Auto) 0.1 Baso % (Auto) 0.4 Lymph # (Auto) 1.3 [place] # (Auto) 0.4 Eos # (Auto) 0.0 Baso # (Auto) 0.0 Abs Immat Gran (auto) 0.08 H Absolute Neuts (auto) 6.2 Absolute Nucleated RBC 0.000 Nucleated RBC % (auto) 0.0 VBG pH VBG pCO2 VBG pO2 VBG HCO3 VBG O2 Saturation VBG Base Excess Sodium 121 L Potassium 4.0 Chloride 94 L Carbon Dioxide 16 L Anion Gap 15 BUN 25 H Creatinine 1.02 Estim Creat Clear Calc -29.5 Estimated GFR > 60 Random Glucose 87 Lactic Acid 1.3 Calcium 8.4 Total Bilirubin 1.6 H AST 15 ALT 6 Alkaline Phosphatase 54 Total Protein 7.0 Albumin 2.9 L Urine Color Urine Appearance Urine pH Ur Specific [place] Urine Protein Urine Glucose (UA) Urine Ketones Urine Blood Urine Nitrite Ur Leukocyte Esterase Urine RBC Urine WBC Ur Squamous Epith Cells Urine Bacteria Hyaline Casts Urine Opiates Screen Urine Fentanyl Screen Ur Barbiturates Screen Ur Phencyclidine Scrn Ur Amphetamines Screen U Benzodiazepines Scrn Urine Cocaine Screen U Marijuana (THC) Screen Ethyl Alcohol Influenza Type A (PCR) Influenza Type B (PCR) RSV RNA Qual (PCR) SARS-CoV-2 RNA (RT-PCR) 11/04/22 11/04/22 11/05/22 22:59 23:05 01:18 WBC RBC Hgb Hct MCV MCH MCHC RDW Plt Count MPV Immature Gran % (Auto) Neut % (Auto) Lymph % (Auto) [place] % (Auto) Eos % (Auto) Baso % (Auto) Lymph # (Auto) [place] # (Auto) Eos # (Auto) Baso # (Auto) Abs Immat Gran (auto) Absolute Neuts (auto) Absolute Nucleated RBC Nucleated RBC % (auto) VBG pH VBG pCO2 VBG pO2 VBG HCO3 VBG O2 Saturation VBG Base Excess Sodium Potassium Chloride Carbon Dioxide Anion Gap BUN Creatinine Estim Creat Clear Calc Estimated GFR Random Glucose Lactic Acid Calcium Total Bilirubin AST ALT Alkaline Phosphatase Total Protein Albumin Urine Color Yellow Urine Appearance Clear Urine pH 5.5 Ur Specific [place] 1.010 Urine Protein 30 (1+) H Urine Glucose (UA) Negative Urine Ketones Trace Urine Blood Large (3+) H Urine Nitrite Negative Ur Leukocyte Esterase Large (3+) H Urine RBC 6-10 H Urine WBC >50 H Ur Squamous Epith Cells 6-10 Urine Bacteria 1+ Hyaline Casts 3-5 Urine Opiates Screen Urine Fentanyl Screen Ur Barbiturates Screen Ur Phencyclidine Scrn Ur Amphetamines Screen U Benzodiazepines Scrn Urine Cocaine Screen U Marijuana (THC) Screen Ethyl Alcohol < 10 Influenza Type A (PCR) NEGATIVE Influenza Type B (PCR) NEGATIVE RSV RNA Qual (PCR) NEGATIVE SARS-CoV-2 RNA (RT-PCR) NEGATIVE 11/05/22 11/05/22 11/05/22 01:18 06:02 10:24 WBC RBC Hgb Hct MCV MCH MCHC RDW Plt Count MPV Immature Gran % (Auto) Neut % (Auto) Lymph % (Auto) [place] % (Auto) Eos % (Auto) Baso % (Auto) Lymph # (Auto) [place] # (Auto) Eos # (Auto) Baso # (Auto) Abs Immat Gran (auto) Absolute Neuts (auto) Absolute Nucleated RBC Nucleated RBC % (auto) VBG pH VBG pCO2 VBG pO2 VBG HCO3 VBG O2 Saturation VBG Base Excess Sodium 126 L 129 L Potassium 4.0 3.3 Chloride 98 106 Carbon Dioxide 18 L 16 L Anion Gap 14 10 L BUN 22 H 21 H Creatinine 0.94 0.82 Estim Creat Clear Calc 77.5 88.8 Estimated GFR > 60 > 60 Random Glucose 97 116 H Lactic Acid Calcium 8.4 7.5 L D Total Bilirubin 1.5 H AST 16 ALT 5 Alkaline Phosphatase 50 Total Protein 6.1 L Albumin 2.5 L Urine Color Urine Appearance Urine pH Ur Specific [place] Urine Protein Urine Glucose (UA) Urine Ketones Urine Blood Urine Nitrite Ur Leukocyte Esterase Urine RBC Urine WBC Ur Squamous Epith Cells Urine Bacteria Hyaline Casts Urine Opiates Screen POSITIVE H Urine Fentanyl Screen POSITIVE H Ur Barbiturates Screen Not Detected Ur Phencyclidine Scrn Not Detected Ur Amphetamines Screen Not Detected U Benzodiazepines Scrn Not Detected Urine Cocaine Screen POSITIVE H U Marijuana (THC) Screen Not Detected Ethyl Alcohol Influenza Type A (PCR) Influenza Type B (PCR) RSV RNA Qual (PCR) SARS-CoV-2 RNA (RT-PCR) 11/05/22 10:30 WBC RBC Hgb Hct MCV MCH MCHC RDW Plt Count MPV Immature Gran % (Auto) Neut % (Auto) Lymph % (Auto) [place] % (Auto) Eos % (Auto) Baso % (Auto) Lymph # (Auto) [place] # (Auto) Eos # (Auto) Baso # (Auto) Abs Immat Gran (auto) Absolute Neuts (auto) Absolute Nucleated RBC Nucleated RBC % (auto) VBG pH 7.47 H VBG pCO2 22 VBG pO2 227 VBG HCO3 16 L VBG O2 Saturation 100.0 VBG Base Excess -5.5 Sodium Potassium Chloride Carbon Dioxide Anion Gap BUN Creatinine Estim Creat Clear Calc Estimated GFR Random Glucose Lactic Acid Calcium Total Bilirubin AST ALT Alkaline Phosphatase Total Protein Albumin Urine Color Urine Appearance Urine pH Ur Specific [place] Urine Protein Urine Glucose (UA) Urine Ketones Urine Blood Urine Nitrite Ur Leukocyte Esterase Urine RBC Urine WBC Ur Squamous Epith Cells Urine Bacteria Hyaline Casts Urine Opiates Screen Urine Fentanyl Screen Ur Barbiturates Screen Ur Phencyclidine Scrn Ur Amphetamines Screen U Benzodiazepines Scrn Urine Cocaine Screen U Marijuana (THC) Screen Ethyl Alcohol Influenza Type A (PCR) Influenza Type B (PCR) RSV RNA Qual (PCR) SARS-CoV-2 RNA (RT-PCR) Imaging Radiology Impressions: ITS Impressions Chest X-Ray 11/04/22 23:35 IMPRESSION: No new focal airspace opacity. Stable trace right pleural effusion versus pleural thickening. No pneumothorax. Medications Medications Current Medications Acetaminophen (Acetaminophen 325 Mg Tablet) 650 mg PO Q6H PRN PRN Reason: Pain, Mild (Pain Scale 1-3) Last Admin: 11/05/22 06:07 Dose: 650 mg Docusate Sodium (Docusate Sodium 100 Mg Capsule) 100 mg PO DAILY PRN PRN Reason: Constipation Enoxaparin Sodium (Enoxaparin Sodium 40 Mg/0.4 Ml Syringe) 40 mg SUBCUT Q24H [facility] Folic Acid (Folic Acid 1 Mg Tablet) 1 mg PO DAILY [facility] Last Admin: 11/05/22 10:54 Dose: 1 mg Piperacillin Sod/Tazobactam (Sod 3.375 gm/ Sodium Chloride) 50 mls @ 100 mls/hr IV Q6H [facility] Last Infusion: 11/05/22 06:42 Dose: Infused Vancomycin HCl 750 mg/ Sodium (Chloride) 265 mls @ 265 mls/hr IV Q12H [facility] Last Infusion: 11/05/22 12:00 Dose: Infused Dextrose/Sodium Chloride (D51/2ns) 1,000 mls @ 100 mls/hr IVCONT .Q10H [facility] Ondansetron HCl (Ondansetron Hcl 4 Mg/2 Ml Vial) 4 mg IVPUSH Q8H PRN PRN Reason: Nausea and Vomiting Pharmacy Consult (Consult Rx Vancomycin Dosing) 1 each MISCELLANE DAILY PRN PRN Reason: Consult order Pharmacy Consult (Consult Rx Vancomycin Dosing) 1 each MISCELLANE DAILY PRN PRN Reason: Consult order Pharmacy Consult (Consult Rx Etoh Phenob Im/Po) 1 each MISCELLANE ONCE PRN; Protocol PRN Reason: Consult order Phenobarbital (Phenobarbital 30 Mg Tablet) 30 mg PO BID [facility]; Protocol Stop: 11/07/22 21:01 Phenobarbital (Phenobarbital 15 Mg Tablet) 15 mg PO BID [facility]; Protocol Stop: 11/09/22 21:01 Phenobarbital (Phenobarbital 15 Mg Tablet) 15 mg PO DAILY [facility]; Protocol Stop: 11/11/22 09:01 Phenobarbital Sodium (Phenobarbital Sodium 130 Mg/Ml Vial Im Q3hx2) 140 mg IM Q3H [facility]; Protocol Stop: 11/05/22 17:01 Sodium Chloride (0.9 % Sodium Chloride Flush 3 Ml Syringe) 3 ml IVFLUSH QSHIFT [facility] Last Admin: 11/05/22 07:45 Dose: 3 ml Thiamine HCl (Thiamine Hcl 100 Mg Tablet) 100 mg PO DAILY [facility] Last Admin: 11/05/22 10:54 Dose: 100 mg Allergies Allergies Allergy/AdvReac Type Severity Reaction Status Date / Time cefazolin Allergy Rash Verified 12/25/21 15:52 Assessment & Plan Assessment & Plan (1) Opioid use disorder, severe, dependence: Status: Acute Code(s): F11.20 - Opioid dependence, uncomplicated Assessment and Plan: * methadone 10mg PRN q4 hrs max 3 doses * once patient less sedated, scheduled methadone to be ordered * will continue to follow Plan Total time managing care of this patient today __30__ minutes.
--- NOTE | 2022-11-05 14:02 | PC.NURSE ---
Gram + cocci in clusters in 2/4 bottles (1/2 sets) MD portillo made aware
[2022-11-05] MEDS: Dextrose 5 % and 0.45 % NaCl 1,000 ML 100 ML IVCONT (14:49)
[2022-11-05] MEDS: PHENobarbitaL sodium 130 MG/ML VIAL IM Q3Hx2 140 MG IM ×2 (14:52→18:39)
--- NOTE | 2022-11-05 16:02 | P.CNID_ITS ---
History of Present Illness Data of Consult Service Date: 11/05/22 Requesting physician: Meli Senior Primary Care Provider: Unknown Physician HPI Reason for consult: gram positive bacteremia She presents with chills and fever. Blood cultures gram positive cocci. I had seen her before 11/2021 with MSSA bacteremia. She continues to use IV drugs. Review of Systems Review of Systems: Yes all other systems are reviewed and are negative PMFSH Past Medical History Medical History MELITON (acute kidney injury) Bacteremia Bacteremia Cocaine use disorder, severe, dependence Elevated blood pressure reading Fever History of endocarditis Opioid use disorder, severe, dependence Sepsis Septic embolism Substance abuse Wound of right upper extremity Family History Family History Mother No problems noted. Father No problems noted. Family history: reviewed and not pertinent Social History Social History Household Members: None and Other Housing: Homeless Housing Other:: homeless but states staying with friends Do you presently have visiting nurse or other home services: No Unable to assess alcohol history related to: Refusing to respond Alcohol intake: current Alcohol intake frequency: 3 or more drinks per day Alcohol type: beer Patient Tobacco Use Status: Current everyday Tobacco user Tobacco use type: Cigarette Smoked in Last 30 Days: Yes Use of substances other than those prescribed or required for medical reasons: Yes Substance Use Type: Crack/Cocaine and Heroin Substance Use Frequency: Daily Advance Directives: No Advance Directives Information Provided: No Patient : No service: No Current occupational status: unemployed Meds Allergies Allergy/AdvReac Type Severity Reaction Status Date / Time cefazolin Allergy Rash Verified 12/25/21 15:52 Active Medications: Current Medications Acetaminophen (Acetaminophen 325 Mg Tablet) 650 mg PO Q6H PRN PRN Reason: Pain, Mild (Pain Scale 1-3) Last Admin: 11/05/22 06:07 Dose: 650 mg Docusate Sodium (Docusate Sodium 100 Mg Capsule) 100 mg PO DAILY PRN PRN Reason: Constipation Enoxaparin Sodium (Enoxaparin Sodium 40 Mg/0.4 Ml Syringe) 40 mg SUBCUT Q24H [facility] Folic Acid (Folic Acid 1 Mg Tablet) 1 mg PO DAILY [facility] Last Admin: 11/05/22 10:54 Dose: 1 mg Piperacillin Sod/Tazobactam (Sod 3.375 gm/ Sodium Chloride) 50 mls @ 100 mls/hr IV Q6H [facility] Last Admin: 11/05/22 13:49 Dose: 100 mls/hr Vancomycin HCl 750 mg/ Sodium (Chloride) 265 mls @ 265 mls/hr IV Q12H [facility] Last Infusion: 11/05/22 12:00 Dose: Infused Dextrose/Sodium Chloride (D51/2ns) 1,000 mls @ 100 mls/hr IVCONT .Q10H [facility] Last Admin: 11/05/22 14:49 Dose: 100 mls/hr Ondansetron HCl (Ondansetron Hcl 4 Mg/2 Ml Vial) 4 mg IVPUSH Q8H PRN PRN Reason: Nausea and Vomiting Pharmacy Consult (Consult Rx Vancomycin Dosing) 1 each MISCELLANE DAILY PRN PRN Reason: Consult order Pharmacy Consult (Consult Rx Vancomycin Dosing) 1 each MISCELLANE DAILY PRN PRN Reason: Consult order Pharmacy Consult (Consult Rx Etoh Phenob Im/Po) 1 each MISCELLANE ONCE PRN; Protocol PRN Reason: Consult order Phenobarbital (Phenobarbital 30 Mg Tablet) 30 mg PO BID [facility]; Protocol Stop: 11/07/22 21:01 Phenobarbital (Phenobarbital 15 Mg Tablet) 15 mg PO BID [facility]; Protocol Stop: 11/09/22 21:01 Phenobarbital (Phenobarbital 15 Mg Tablet) 15 mg PO DAILY [facility]; Protocol Stop: 11/11/22 09:01 Phenobarbital Sodium (Phenobarbital Sodium 130 Mg/Ml Vial Im Q3hx2) 140 mg IM Q3H [facility]; Protocol Stop: 11/05/22 17:01 Last Admin: 11/05/22 14:52 Dose: 140 mg Sodium Chloride (0.9 % Sodium Chloride Flush 3 Ml Syringe) 3 ml IVFLUSH QSHIFT [facility] Last Admin: 11/05/22 07:45 Dose: 3 ml Thiamine HCl (Thiamine Hcl 100 Mg Tablet) 100 mg PO DAILY [facility] Last Admin: 11/05/22 10:54 Dose: 100 mg Home Medications Medication Instructions Recorded Confirmed Last Taken Type No Known Home Meds 12/22/21 11/04/22 Unknown History Physical Exam Vital Signs: Vital Signs: Last Vital Signs Temp 99.1 F 11/05/22 07:09 Pulse 80 11/05/22 14:53 Resp 14 11/05/22 14:53 BP 91/48 L 11/05/22 14:53 Pulse Ox 95 11/05/22 14:53 O2 Del Method Room Air 11/05/22 14:53 BMI result Body Mass Index 28.4 Const: General: cooperative HEENT: Head: Yes normal to inspection Face and sinus: Yes normal facial exam Mouth: Normal oral and palatal mucosa present Teeth and gingiva: dentition normal Eyes: General: appearance normal, both eyes and all related structures Pupils: Equal, round and reactive pupils present Resp: Effort & Inspection: normal respiratory effort Cardio: Rate: regular rate Rhythm: regular rhythm GI: Palpation (GI): Soft to palpation and nontender : General: Yes no CVA tenderness Back/Spine/Pelvis: Back: no CVA tenderness Skin: Other: some scabs on skin area General skin exam: no rashes or lesions noted Neuro: General: moves all extremities Cranial nerves: Yes Equal, round and reactive pupils present Extrem: General: Yes normal to inspection Psych: Appearance: grossly normal Results Labs 11/04/22 22:59 11/05/22 10:24 Labs: Short CBC 11/04/22 Range/Units 22:59 WBC 8.0 (4.8-10.8) X10*3/uL Hgb 11.0 L (12.0-16.0) g/dl Hct 33.3 L (37.0-47.0) % Plt Count 152 L (160-400) X10*3/uL BMP 11/04/22 11/05/22 11/05/22 22:59 06:02 10:24 Sodium 121 L 126 L 129 L Potassium 4.0 4.0 3.3 Chloride 94 L 98 106 Carbon Dioxide 16 L 18 L 16 L BUN 25 H 22 H 21 H Creatinine 1.02 0.94 0.82 Calcium 8.4 8.4 7.5 L D Liver Function 11/04/22 11/05/22 Range/Units 22:59 06:02 Total Bilirubin 1.6 H 1.5 H (0.0-1.0) mg/dL AST 15 16 (5-31) U/L ALT 6 5 (0-31) U/L Alkaline Phosphatase 54 50 (39-117) U/L Albumin 2.9 L 2.5 L (3.5-5.0) g/dL Urine 11/05/22 Range/Units 01:18 Urine Color Yellow Urine Appearance Clear Urine pH 5.5 (5.0-9.0) Ur Specific [place] 1.010 (1.005-1.025) Urine Protein 30 (1+) H (Neg-Trace) mg/dL Urine Glucose (UA) Negative (Negative) mg/dL Microbiology Microbiology Results: Microbiology 11/04/22 22:59 Blood - Venous Blood Culture - Preliminary Prelim: GPC Gram Stain only 11/05/22 05:56 Blood - Venous Blood Culture - Final 11/05/22 05:56 Blood - Venous Blood Culture - Final Assessment and Plan (1) Tricuspid valve regurgitation, infectious: Status: Acute (2) Bacteremia due to Staphylococcus: Status: Acute She possibly has MSSA again. Continue Vancomycin alone and probably even if MSSA since allergy to Cefzol. Check echo for endocarditis. Time Spent With Patient Time: Total time managing care of this patient today ____ minutes.
--- NOTE | 2022-11-05 17:13 | PC.NURSE ---
PER HOSPITAL PROTOCOL CANNOT GO THROUGH OR DECON PTS BELONGINGS WITH HX OF IVDU WILL MONITOR PT . SHE IS SOMNOLENT BUT AROUSABLE. BACKPACK AT BEDSIDE
[2022-11-05] MEDS: Lactated Ringers 1,000 ML 999 ML IV ×2 (21:03→22:11)
[2022-11-05 21:33] LABS: Anion Gap 12 (12-20); Blood Urea Nitrogen 19 mg/dL (9-16); Calcium 8.2 mg/dL (8.4-10.2); Carbon Dioxide 19 mmol/L (22-29); Chloride 100 mmol/L (96-108); Creatinine Clr Calc Pharmacy 87.8; Estimated Glomerular Filt Rate > 60; Glucose Random 126 mg/dL (60-115); Potassium 3.2 mmol/L (3.3-5.1); Sodium 128 mmol/L (135-145)
[2022-11-06] VITALS (7 sets, daily range): BP systolic 91–106; BP diastolic 48–72; PULSE 85–111; RESP 17–20; TEMP 36–37.6; O2SAT 90–96
--- NOTE | 2022-11-06 00:55 | PM.EVENT ---
Event Note Date of Service: 11/06/22 Event Note: Patient hypotensive, likely secondary to sepsis, 30 cc/kg of IV fluids were ordered, patient received 1 L but then IV line infiltrated. Patient is refusing IV insertion at this time. Explained to her that her hypotension can lead her to if not treated, patient understands the risk, and continues to refuse IV insertion. At this time will monitor Time Spent With Patient Time: Total time managing care of this patient today ____ minutes.
--- NOTE | 2022-11-06 01:12 | PC.NURSE ---
Patient BP was 74/54 at 19:58, patient is alert and oriented x4. denies dizziness or lightheadedness.MD notified fluids ordered. IV infiltrated on the last bag of fluids. BP was rechecked for 82/45. Patient only allowed one attempt at an IV. Supervising Nurse tried, unsuccessful to establish IV access. Patient refused another attempt to establish IV access. Patient reeducated about not having access and continued to refuse. MD notified and aware.
[2022-11-06 08:09] LABS: Hematocrit 29.3 % (37.0-47.0); Hemoglobin 9.7 g/dl (12.0-16.0); Mean Corpuscular HGB Conc 33.1 g/dl (31.0-35.0); Mean Corpuscular Hemoglobin 28.3 pg (27.0-33.0); Mean Corpuscular Volume 85.4 fL (80.0-98.0); Mean Platelet Volume 11.7 fL (9.4-12.3); Platelet Count 152 X10*3/uL (160-400); Red Blood Count 3.43 X10*6/uL (4.20-5.50); Red Cell Distribution Width 14.1 % (11.0-16.0); White Blood Count 7.5 X10*3/uL (4.8-10.8)
[2022-11-06] MEDS: Thiamine HCL 100 MG TABLET PO (08:13)
[2022-11-06] MEDS: PHENobarbitaL 30 MG TABLET PO ×2 (08:13→21:47)
[2022-11-06] MEDS: Folic Acid 1 MG TABLET PO (08:13)
[2022-11-06 08:20] LABS: Lactic Acid 1.3 mmol/L (0.5-2.0)
[2022-11-06 08:21] LABS: Creatinine Clr Calc Pharmacy 92.2; Estimated Glomerular Filt Rate > 60
[2022-11-06 08:22] LABS: Anion Gap 11 (12-20); Blood Urea Nitrogen 15 mg/dL (9-16); Carbon Dioxide 17 mmol/L (22-29); Chloride 102 mmol/L (96-108); Creatinine Clr Calc Pharmacy 94.6; Estimated Glomerular Filt Rate > 60; Glucose Random 111 mg/dL (60-115); Potassium 3.4 mmol/L (3.3-5.1); Sodium 127 mmol/L (135-145)
[2022-11-06 08:23] LABS: Vancomycin Trough 7.8 mcg/mL (10.0-20.0)
--- NOTE | 2022-11-06 08:50 | P.CONNP_ITS ---
History of Present Illness Reason for Consult Consult date: 11/06/22 Chief Complaint Chief complaint: IVDU, concerning for Endocarditis History of Present Illness Narrative: 27-year-old female past medical history of endocarditis comes into the hospital with body aches found to have low serum sodium. Patient was found to have fever, tachycardia and evidence of current endocarditis. She denies chest pain, shortness of breath, nausea, vomiting or diarrhea. She tells me she drinks at least 100 ounces fluid daily at home. Review of Systems Review of Systems 10 points ROS negative except for pertinent in HPI PMFSH Past Medical History Medical History (Updated 11/05/22 @ 20:47 by Jinny Wright CNP) MELITON (acute kidney injury) Bacteremia Bacteremia Cocaine use disorder, severe, dependence Elevated blood pressure reading Fever History of endocarditis Opioid use disorder, severe, dependence Sepsis Septic embolism Substance abuse Wound of right upper extremity Family History Family History Mother No problems noted. Father No problems noted. Family history: reviewed and not pertinent Social History Social History Household Members: Friend(s) Housing: Apartment Housing Other:: homeless but states staying with friends Do you presently have visiting nurse or other home services: No Unable to assess alcohol history related to: Refusing to respond Alcohol intake: current Alcohol intake frequency: 3 or more drinks per day Alcohol type: beer Patient Tobacco Use Status: Former Tobacco user Tobacco use type: Cigarette Substance Use Type: Crack/Cocaine, Heroin and IV Drugs service: No Current occupational status: unemployed Meds Allergies Allergy/AdvReac Type Severity Reaction Status Date / Time cefazolin Allergy Rash Verified 12/25/21 15:52 Active Medications: Current Medications Acetaminophen (Acetaminophen 325 Mg Tablet) 650 mg PO Q6H PRN PRN Reason: Pain, Mild (Pain Scale 1-3) Last Admin: 11/05/22 06:07 Dose: 650 mg Docusate Sodium (Docusate Sodium 100 Mg Capsule) 100 mg PO DAILY PRN PRN Reason: Constipation Enoxaparin Sodium (Enoxaparin Sodium 40 Mg/0.4 Ml Syringe) 40 mg SUBCUT Q24H [facility] Last Admin: 11/05/22 21:05 Dose: Not Given Folic Acid (Folic Acid 1 Mg Tablet) 1 mg PO DAILY [facility] Last Admin: 11/06/22 08:13 Dose: 1 mg Vancomycin HCl 750 mg/ Sodium (Chloride) 265 mls @ 265 mls/hr IV Q12H [facility] Last Admin: 11/06/22 01:09 Dose: Not Given Dextrose/Sodium Chloride (D51/2ns) 1,000 mls @ 100 mls/hr IVCONT .Q10H [facility] Last Admin: 11/06/22 08:40 Dose: Not Given Methadone HCl (Methadone Hcl 20 Mg/2 Ml Oral.Conc) 10 mg PO Q4H PRN PRN Reason: Opiate Withdrawal Ondansetron HCl (Ondansetron Hcl 4 Mg/2 Ml Vial) 4 mg IVPUSH Q8H PRN PRN Reason: Nausea and Vomiting Pharmacy Consult (Consult Rx Vancomycin Dosing) 1 each MISCELLANE DAILY PRN PRN Reason: Consult order Pharmacy Consult (Consult Rx Vancomycin Dosing) 1 each MISCELLANE DAILY PRN PRN Reason: Consult order Pharmacy Consult (Consult Rx Etoh Phenob Im/Po) 1 each MISCELLANE ONCE PRN; Protocol PRN Reason: Consult order Phenobarbital (Phenobarbital 30 Mg Tablet) 30 mg PO BID [facility]; Protocol Stop: 11/07/22 21:01 Last Admin: 11/06/22 08:13 Dose: 30 mg Phenobarbital (Phenobarbital 15 Mg Tablet) 15 mg PO BID [facility]; Protocol Stop: 11/09/22 21:01 Phenobarbital (Phenobarbital 15 Mg Tablet) 15 mg PO DAILY [facility]; Protocol Stop: 11/11/22 09:01 Sodium Chloride (0.9 % Sodium Chloride Flush 3 Ml Syringe) 3 ml IVFLUSH QSHIFT [facility] Last Admin: 11/06/22 08:14 Dose: Not Given Thiamine HCl (Thiamine Hcl 100 Mg Tablet) 100 mg PO DAILY [facility] Last Admin: 11/06/22 08:13 Dose: 100 mg Home Medications Medication Instructions Recorded Confirmed Last Taken Type No Known Home Meds 12/22/21 11/04/22 Unknown History Physical Exam Vital Signs: Last Vital Signs Temp 98.1 F 11/06/22 07:53 Pulse 96 11/06/22 07:53 Resp 20 11/06/22 07:53 BP 97/54 L 11/06/22 07:53 Pulse Ox 90 L 11/06/22 07:53 O2 Del Method Room Air 11/06/22 07:53 BMI result Body Mass Index 28.4 Const General: no acute distress HEENT Head: Yes normocephalic and Yes atraumatic Neck Neck: Yes supple Resp Auscultation: clear to auscultation bilaterally Cardio Heart sounds: S1 normal heart sound present, S2 normal heart sound present and Murmur heart sound present GI Palpation (GI): Soft to palpation and nontender Extrem General: Yes no pedal edema Results Lab Results 11/06/22 07:54 11/06/22 07:54 Lab results: Chemistry 11/04/22 11/05/22 11/05/22 22:59 06:02 10:24 Sodium 121 L 126 L 129 L Potassium 4.0 4.0 3.3 Carbon Dioxide 16 L 18 L 16 L BUN 25 H 22 H 21 H Creatinine 1.02 0.94 0.82 Calcium 8.4 8.4 7.5 L D 11/05/22 11/06/22 11/06/22 20:52 07:54 07:54 Sodium 128 L 127 L Potassium 3.2 L 3.4 Carbon Dioxide 19 L 17 L BUN 19 H 15 Creatinine 0.83 0.79 0.77 Calcium 8.2 L D 8.0 L Hematology 11/04/22 11/06/22 22:59 07:54 WBC 8.0 7.5 Hgb 11.0 L 9.7 L Plt Count 152 L 152 L Urinalysis 11/05/22 01:18 Urine Color Yellow Urine Appearance Clear Urine pH 5.5 Ur Specific [place] 1.010 Urine Protein 30 (1+) H Urine Glucose (UA) Negative Urine Ketones Trace Urine Blood Large (3+) H Urine Nitrite Negative Ur Leukocyte Esterase Large (3+) H Urine RBC 6-10 H Urine WBC >50 H Ur Squamous Epith Cells 6-10 Hyaline Casts 3-5 Assessment and Plan (1) Hyponatremia: Status: Acute (2) Metabolic acidosis: Status: Acute Plan euvolemic most likely hypotonic hyponatremia multifactorial: -? poor solute excretion -excessive fluid intake on phenobarbital which can incrase ADH REC Uosm and Sosm Natalya consider adding urea (pending above tests) c IVF fluid restriction 1.5 L avoid rapid correction follow electrolytes Time Spent With Patient Time: Total time managing care of this patient today ____ minutes. Procedures Date of Service Date of Service: 11/06/22
--- NOTE | 2022-11-06 09:05 | HE.PHANOTE ---
RE GERMAN INCREASING DOSE TO 1 GRAM Q8H, NEXT TROUGH TOMORROW AT 0800. AUC PREDICTED 543, TROUGH 14.3 BUDDY
[2022-11-06] MEDS: methADONE HCl 20 MG/2 ML ORAL.CONC 30 MG PO (10:28)
[2022-11-06] MEDS: vancomycin HCL 1,000 MG in 0.9 % Sodium Chloride 250 ML 270 MG IV ×2 (10:29→17:49)
[2022-11-06 11:16] LABS: Anion Gap 11 (12-20); Blood Urea Nitrogen 13 mg/dL (9-16); Carbon Dioxide 17 mmol/L (22-29); Chloride 103 mmol/L (96-108); Creatinine Clr Calc Pharmacy 91.1; Estimated Glomerular Filt Rate > 60; Glucose Random 143 mg/dL (60-115); Potassium 3.3 mmol/L (3.3-5.1); Sodium 128 mmol/L (135-145)
[2022-11-06 11:40] LABS: Osmolality, Serum 270 mosm/kg (281-305)
[2022-11-06 12:36] LABS: Osmolality Urine 157 mosm/kg (373-1093)
[2022-11-06 12:41] LABS: Creatinine Urine 46.55 mg/dL; Sodium Urine Random < 20.0 mmol/L
[2022-11-06 12:50] LABS: Uric Acid Urine Random 20.6 mg/dL
[2022-11-06] MEDS: Omeprazole 40 MG CAPSULE.DR PO (12:53)
--- NOTE | 2022-11-06 13:03 | HO.PM.IMPN ---
Subjective Subjective Date of Service: 11/06/22 Interval History: Seen and evaluated this morning Feels weak and tired, reporting chills Na improved to 128 Less withdrawal symptoms Positive blood cultures Review of Systems Review of Systems: Yes all other systems are reviewed and are negative Physical Exam Vital Signs: Vital Signs: Last Vital Signs Temp 98.4 F 11/06/22 11:22 Pulse 97 11/06/22 11:22 Resp 20 11/06/22 11:22 BP 106/60 11/06/22 11:22 Pulse Ox 93 11/06/22 11:22 O2 Del Method Room Air 11/06/22 11:22 BMI result Body Mass Index 28.4 Const: Other: Constitutional : Awake, interactive, not in distress Neck : Normal inspection, Supple Cardiovascular : RRR, no JVP, no lower extremity edema, systolic murmur over right ventricle Respiratory : fair bilateral air entry, no crackles, wheezes or rhonchi Gastrointestinal: soft, lax, Normal bowel sounds, Non tender Skin : Warm, Dry Neurological : Alert & oriented x3, No focal deficit Objective Data Active Medications Acetaminophen (Acetaminophen 325 Mg Tablet) 650 mg PO Q6H PRN PRN Reason: Pain, Mild (Pain Scale 1-3) Last Admin: 11/05/22 06:07 Dose: 650 mg Documented By: RODOLFO Al Hydroxide/Mg Hydroxide (Magnesium Hydrox/Alum Hydrox 30 Ml Oral.Susp) 30 ml PO Q6H PRN PRN Reason: Heart burn Docusate Sodium (Docusate Sodium 100 Mg Capsule) 100 mg PO DAILY PRN PRN Reason: Constipation Enoxaparin Sodium (Enoxaparin Sodium 40 Mg/0.4 Ml Syringe) 40 mg SUBCUT Q24H [facility] Last Admin: 11/05/22 21:05 Dose: Not Given Documented By: CEDRIC Non-Admin Reason: Patient Refused Folic Acid (Folic Acid 1 Mg Tablet) 1 mg PO DAILY [facility] Last Admin: 11/06/22 08:13 Dose: 1 mg Documented By: KATIE Vancomycin HCl 1,000 mg/ (Sodium Chloride) 270 mls @ 270 mls/hr IV Q8H [facility] Last Infusion: 11/06/22 11:49 Dose: 0 mls/hr Documented By: KATIE Methadone HCl (Methadone Hcl 20 Mg/2 Ml Oral.Conc) 10 mg PO Q4H PRN PRN Reason: Opiate Withdrawal Methadone HCl (Methadone Hcl 20 Mg/2 Ml Oral.Conc) 30 mg PO DAILY [facility] Last Admin: 11/06/22 10:28 Dose: 30 mg Documented By: KATIE Omeprazole (Omeprazole 40 Mg Capsule.Dr) 40 mg PO DAILY@0630 [facility] Last Admin: 11/06/22 12:53 Dose: 40 mg Documented By: KATIE Ondansetron HCl (Ondansetron Hcl 4 Mg/2 Ml Vial) 4 mg IVPUSH Q8H PRN PRN Reason: Nausea and Vomiting Pharmacy Consult (Consult Rx Vancomycin Dosing) 1 each MISCELLANE DAILY PRN PRN Reason: Consult order Pharmacy Consult (Consult Rx Vancomycin Dosing) 1 each MISCELLANE DAILY PRN PRN Reason: Consult order Pharmacy Consult (Consult Rx Etoh Phenob Im/Po) 1 each MISCELLANE ONCE PRN; Protocol PRN Reason: Consult order Phenobarbital (Phenobarbital 30 Mg Tablet) 30 mg PO BID [facility]; Protocol Stop: 11/07/22 21:01 Last Admin: 11/06/22 08:13 Dose: 30 mg Documented By: KATIE Phenobarbital (Phenobarbital 15 Mg Tablet) 15 mg PO BID [facility]; Protocol Stop: 11/09/22 21:01 Phenobarbital (Phenobarbital 15 Mg Tablet) 15 mg PO DAILY [facility]; Protocol Stop: 11/11/22 09:01 Sodium Chloride (0.9 % Sodium Chloride Flush 3 Ml Syringe) [address] [facility] Last Admin: 11/06/22 08:14 Dose: Not Given Documented By: KATIE Non-Admin Reason: IV Running Thiamine HCl (Thiamine Hcl 100 Mg Tablet) 100 mg PO DAILY [facility] Last Admin: 11/06/22 08:13 Dose: 100 mg Documented By: KATIE Labs 11/06/22 07:54 11/06/22 10:50 Labs: Laboratory Results - last 24 hr 11/05/22 11/06/22 11/06/22 20:52 07:54 07:54 MCV MCH MCHC RDW Plt Count MPV Absolute Nucleated RBC Nucleated RBC % (auto) Anion Gap 12 Estim Creat Clear Calc 87.8 92.2 Estimated GFR > 60 > 60 Random Glucose 126 H Osmolality Lactic Acid 1.3 Calcium 8.2 L D Urine Osmolality Ur Random Sodium Ur Random Uric Acid Urine Creatinine Vancomycin Trough 11/06/22 11/06/22 11/06/22 07:54 07:54 07:54 MCV 85.4 MCH 28.3 MCHC 33.1 RDW 14.1 Plt Count 152 L MPV 11.7 Absolute Nucleated RBC 0.000 Nucleated RBC % (auto) 0.0 Anion Gap 11 L Estim Creat Clear Calc 94.6 Estimated GFR > 60 Random Glucose 111 Osmolality Lactic Acid Calcium 8.0 L Urine Osmolality Ur Random Sodium Ur Random Uric Acid Urine Creatinine Vancomycin Trough 7.8 L 11/06/22 11/06/22 11/06/22 10:50 10:50 11:35 MCV MCH MCHC RDW Plt Count MPV Absolute Nucleated RBC Nucleated RBC % (auto) Anion Gap 11 L Estim Creat Clear Calc 91.1 Estimated GFR > 60 Random Glucose 143 H Osmolality 270 L Lactic Acid Calcium 8.0 L Urine Osmolality 157 L Ur Random Sodium Ur Random Uric Acid Urine Creatinine Vancomycin Trough 11/06/22 11/06/22 11:35 11:35 MCV MCH MCHC RDW Plt Count MPV Absolute Nucleated RBC Nucleated RBC % (auto) Anion Gap Estim Creat Clear Calc Estimated GFR Random Glucose Osmolality Lactic Acid Calcium Urine Osmolality Ur Random Sodium < 20.0 Ur Random Uric Acid 20.6 Urine Creatinine 46.55 Vancomycin Trough Microbiology Microbiology Results: Microbiology 11/05/22 20:52 Blood Culture - Preliminary Blood - Venous 11/05/22 20:52 Blood Culture - Preliminary Blood - Venous Prelim: GPC Gram Stain only 11/05/22 06:02 Blood Culture - Preliminary Blood - Venous Staphylococcus aureus 11/04/22 22:59 Blood Culture - Preliminary Blood - Venous Staphylococcus aureus 11/05/22 05:56 Blood Culture - Final Blood - Venous 11/05/22 05:56 Blood Culture - Final Blood - Venous Assessment and Plan (1) Hyponatremia: Status: Acute (2) Sepsis: Status: Acute Plan 27-year-old female past medical history of endocarditis comes into the hospital it body aches found to have fever, tachycardia, evidence of current endocarditis as well as hyponatremia and electrolyte imbalance # Positive blood cultures likely 2/2 acute endocarditis in IV drug abuser Septic overnight, 30cc\kg given Blood cultures +ve GPC Hx of MSSA Endocarditis 01/14 obtain echocardiogram Vancomycin for now follow repeated cultures ID eval Follow Vancomycin trough # acute hyponatremia Lost IV access overnight corrected to 128 overnight Follow BMP Urine studies Fluid restriction nephrology following # metabolic acidosis bicarb chronically low follow BMP VBG showing compensation # IV drug use addiction medicine following Continue MEthadone 30mg daily # alcohol use disorder with withdrawal drinks 5 beers/nightly scoring 10 on CIWA, start PHenobarbital protocol thiamine and folic acid supplement DVT ppx: lovenox Given pt need for IV abx and need for further evaluation of endocarditis she will overnight inpatient hospital stay Time Spent With Patient Time: Total time managing care of this patient today ____ minutes. Quality Stroke Does the patient have a stroke diagnosis?: No VTE Prior VTE?: No VTE Risk Level:: Medical - moderate - high VTE Device Contraindication: Treatment Not Indicated VTE Drug Contraindication: N/A - Med Ordered
[2022-11-06] MEDS: 0.9 % Sodium Chloride Flush 3 ML SYRINGE IVFLUSH (17:52)
[2022-11-06] MEDS: Acetaminophen 325 MG TABLET 650 MG PO (21:51)
[2022-11-07] MEDS: vancomycin HCL 1,000 MG in 0.9 % Sodium Chloride 250 ML 270 MG IV ×2 (01:34→21:57)
[2022-11-07] MEDS: 0.9 % Sodium Chloride Flush 3 ML SYRINGE IVFLUSH ×4 (01:35→20:33)
[2022-11-07 03:35] VITALS: BP 88/47; PULSE 76; RESP 18; TEMP 36.3; O2SAT 92
[2022-11-07] MEDS: Omeprazole 40 MG CAPSULE.DR PO (06:01)
[2022-11-07 07:42] VITALS: BP 93/55; PULSE 84; RESP 20; TEMP 36.2; O2SAT 94
--- NOTE | 2022-11-07 08:03 | PM.PNNEP ---
Subjective Subjective Date of Service: 11/07/22 Interval history: seen and examined feels tired Physical Exam Vital Signs: Vital Signs: Last Vital Signs Temp 97.1 F 11/07/22 07:42 Pulse 84 11/07/22 07:42 Resp 20 11/07/22 07:42 BP 93/55 L 11/07/22 07:42 Pulse Ox 94 11/07/22 07:42 O2 Del Method Room Air 11/07/22 07:42 BMI result Body Mass Index 28.4 Const: General: no acute distress HEENT: Head: Yes normocephalic and Yes atraumatic Neck: Neck: Yes supple Resp: Auscultation: clear to auscultation bilaterally Cardio: Heart sounds: S1 normal heart sound present, S2 normal heart sound present and Murmur heart sound present GI: Palpation (GI): Soft to palpation and nontender Extrem: General: Yes no pedal edema Objective Data Labs 11/06/22 07:54 11/06/22 10:50 Labs: Laboratory Results - last 24 hr 11/06/22 11/06/22 11/06/22 07:54 07:54 07:54 WBC RBC Hgb Hct MCV MCH MCHC RDW Plt Count MPV Absolute Nucleated RBC Nucleated RBC % (auto) Sodium Potassium Chloride Carbon Dioxide Anion Gap BUN Creatinine 0.79 Estim Creat Clear Calc 92.2 Estimated GFR > 60 Random Glucose Osmolality Lactic Acid 1.3 Calcium Urine Osmolality Ur Random Sodium Ur Random Uric Acid Urine Creatinine Vancomycin Trough 7.8 L 11/06/22 11/06/22 11/06/22 07:54 07:54 10:50 WBC 7.5 RBC 3.43 L Hgb 9.7 L Hct 29.3 L MCV 85.4 MCH 28.3 MCHC 33.1 RDW 14.1 Plt Count 152 L MPV 11.7 Absolute Nucleated RBC 0.000 Nucleated RBC % (auto) 0.0 Sodium 127 L 128 L Potassium 3.4 3.3 Chloride 102 103 Carbon Dioxide 17 L 17 L Anion Gap 11 L 11 L BUN 15 13 Creatinine 0.77 0.80 Estim Creat Clear Calc 94.6 91.1 Estimated GFR > 60 > 60 Random Glucose 111 143 H Osmolality Lactic Acid Calcium 8.0 L 8.0 L Urine Osmolality Ur Random Sodium Ur Random Uric Acid Urine Creatinine Vancomycin Trough 11/06/22 11/06/22 11/06/22 10:50 11:35 11:35 WBC RBC Hgb Hct MCV MCH MCHC RDW Plt Count MPV Absolute Nucleated RBC Nucleated RBC % (auto) Sodium Potassium Chloride Carbon Dioxide Anion Gap BUN Creatinine Estim Creat Clear Calc Estimated GFR Random Glucose Osmolality 270 L Lactic Acid Calcium Urine Osmolality 157 L Ur Random Sodium < 20.0 Ur Random Uric Acid Urine Creatinine 46.55 Vancomycin Trough 11/06/22 11:35 WBC RBC Hgb Hct MCV MCH MCHC RDW Plt Count MPV Absolute Nucleated RBC Nucleated RBC % (auto) Sodium Potassium Chloride Carbon Dioxide Anion Gap BUN Creatinine Estim Creat Clear Calc Estimated GFR Random Glucose Osmolality Lactic Acid Calcium Urine Osmolality Ur Random Sodium Ur Random Uric Acid 20.6 Urine Creatinine Vancomycin Trough Microbiology Microbiology Results: Microbiology 11/05/22 Unknown Urine clean catch - Urine fox top Urine Culture - Final 11/05/22 20:52 Blood - Venous Blood Culture - Preliminary 11/05/22 20:52 Blood - Venous Blood Culture - Preliminary Prelim: GPC Gram Stain only 11/05/22 06:02 Blood - Venous Blood Culture - Preliminary Staphylococcus aureus 11/04/22 22:59 Blood - Venous Blood Culture - Preliminary Staphylococcus aureus 11/05/22 05:56 Blood - Venous Blood Culture - Final 11/05/22 05:56 Blood - Venous Blood Culture - Final Procedures Date of Service Date of Service: 11/07/22 Assessment & Plan Assessment and plan (1) Hyponatremia: Status: Acute (2) Metabolic acidosis: Status: Acute Plan Sna better euvolemic most likely hypotonic hyponatremia multifactorial: -poor solute excretion -excessive fluid intake low Uosm (157) and Natalya (< 20) not c/w SIADH on phenobarbital which can increase ADH REC dc IVF fluid restriction 1.5 L avoid rapid correction follow electrolytes Time Spent With Patient Time: Total time managing care of this patient today ____ minutes. Progress Note: Quality Stroke Does the patient have a stroke diagnosis?: No
[2022-11-07 08:46] LABS: Hematocrit 32.4 % (37.0-47.0); Hemoglobin 10.3 g/dl (12.0-16.0); Mean Corpuscular HGB Conc 31.8 g/dl (31.0-35.0); Mean Corpuscular Hemoglobin 28.4 pg (27.0-33.0); Mean Corpuscular Volume 89.3 fL (80.0-98.0); Mean Platelet Volume 11.8 fL (9.4-12.3); Platelet Count 131 X10*3/uL (160-400); Red Blood Count 3.63 X10*6/uL (4.20-5.50); Red Cell Distribution Width 14.3 % (11.0-16.0)
[2022-11-07 08:47] LABS: Anion Gap 14 (12-20); Blood Urea Nitrogen 9 mg/dL (9-16); Calcium 8.1 mg/dL (8.4-10.2); Carbon Dioxide 14 mmol/L (22-29); Chloride 107 mmol/L (96-108); Creatinine Clr Calc Pharmacy 88.8; Estimated Glomerular Filt Rate > 60; Glucose Random 122 mg/dL (60-115); Potassium 3.5 mmol/L (3.3-5.1); Sodium 131 mmol/L (135-145)
[2022-11-07 08:54] LABS: Vancomycin Random 27.2 mcg/mL (15-20)
[2022-11-07] MEDS: PHENobarbitaL 30 MG TABLET PO ×2 (08:54→20:32)
[2022-11-07] MEDS: Folic Acid 1 MG TABLET PO (08:54)
[2022-11-07] MEDS: methADONE HCl 20 MG/2 ML ORAL.CONC 30 MG PO (08:57)
[2022-11-07] MEDS: Thiamine HCL 100 MG TABLET PO (08:58)
--- NOTE | 2022-11-07 09:02 | HE.PHANOTE ---
RE VANCO TROUGH WAS SUPRATHERAPUETIC AT 27.2, NOT EXPECTED PER PREVIOUS LAB VALUES. RENAL FUNCTION PRESERVED. WILL HOLD DOSES TODAY TO CLEAR MEDICATION AND WILL GET A LEVEL TONIGHT BEFORE RESTARTING. NORMALLY I WOULD WAIT TILL AM, BUT PATIENT HERE WITH ENDOCARDITIS PER ORDER BUDDY
--- NOTE | 2022-11-07 11:18 | HO.PM.IMPN ---
Subjective Subjective Date of Service: 11/07/22 Interval History: Seen and evaluated this morning Feels better overall, reporting chills Na improved to 131 BP tends to run low, not septic Positive blood cultures Review of Systems Review of Systems: Yes all other systems are reviewed and are negative Physical Exam Vital Signs: Vital Signs: Last Vital Signs Temp 97.1 F 11/07/22 07:42 Pulse 84 11/07/22 07:42 Resp 20 11/07/22 07:42 BP 93/55 L 11/07/22 07:42 Pulse Ox 94 11/07/22 07:42 O2 Del Method Room Air 11/07/22 07:42 BMI result Body Mass Index 28.4 Const: Other: Constitutional : Awake, interactive, not in distress Neck : Normal inspection, Supple Cardiovascular : RRR, no JVP, no lower extremity edema, fine systolic murmur over right ventricle Respiratory : fair bilateral air entry, no crackles, wheezes or rhonchi Gastrointestinal: soft, lax, Normal bowel sounds, Non tender Skin : Warm, Dry Neurological : Alert & oriented x3, No focal deficit Objective Data Active Medications Acetaminophen (Acetaminophen 325 Mg Tablet) 650 mg PO Q6H PRN PRN Reason: Pain, Mild (Pain Scale 1-3) Last Admin: 11/06/22 21:51 Dose: 650 mg Documented By: QUE Al Hydroxide/Mg Hydroxide (Magnesium Hydrox/Alum Hydrox 30 Ml Oral.Susp) 30 ml PO Q6H PRN PRN Reason: Heart burn Docusate Sodium (Docusate Sodium 100 Mg Capsule) 100 mg PO DAILY PRN PRN Reason: Constipation Enoxaparin Sodium (Enoxaparin Sodium 40 Mg/0.4 Ml Syringe) 40 mg SUBCUT Q24H [facility] Last Admin: 11/06/22 21:47 Dose: Not Given Documented By: QUE Non-Admin Reason: Patient Refused Folic Acid (Folic Acid 1 Mg Tablet) 1 mg PO DAILY [facility] Last Admin: 11/07/22 08:54 Dose: 1 mg Documented By: ELAINA Vancomycin HCl 1,000 mg/ (Sodium Chloride) 270 mls @ 270 mls/hr IV Q12H [facility] Methadone HCl (Methadone Hcl 20 Mg/2 Ml Oral.Conc) 30 mg PO DAILY [facility] Last Admin: 11/07/22 08:57 Dose: 30 mg Documented By: ELAINA Omeprazole (Omeprazole 40 Mg Capsule.) 40 mg PO DAILY@0630 [facility] Last Admin: 11/07/22 06:01 Dose: 40 mg Documented By: QUE Ondansetron HCl (Ondansetron Hcl 4 Mg/2 Ml Vial) 4 mg IVPUSH Q8H PRN PRN Reason: Nausea and Vomiting Pharmacy Consult (Consult Rx Vancomycin Dosing) 1 each MISCELLANE DAILY PRN PRN Reason: Consult order Pharmacy Consult (Consult Rx Vancomycin Dosing) 1 each MISCELLANE DAILY PRN PRN Reason: Consult order Pharmacy Consult (Consult Rx Etoh Phenob Im/Po) 1 each MISCELLANE ONCE PRN; Protocol PRN Reason: Consult order Phenobarbital (Phenobarbital 30 Mg Tablet) 30 mg PO BID [facility]; Protocol Stop: 11/07/22 21:01 Last Admin: 11/07/22 08:54 Dose: 30 mg Documented By: ELAINA Phenobarbital (Phenobarbital 15 Mg Tablet) 15 mg PO BID [facility]; Protocol Stop: 11/09/22 21:01 Phenobarbital (Phenobarbital 15 Mg Tablet) 15 mg PO DAILY [facility]; Protocol Stop: 11/11/22 09:01 Sodium Chloride (0.9 % Sodium Chloride Flush 3 Ml Syringe) 3 ml IVFLUSH [facility] Last Admin: 11/07/22 08:56 Dose: 3 ml Documented By: ELAINA Thiamine HCl (Thiamine Hcl 100 Mg Tablet) 100 mg PO DAILY [facility] Last Admin: 11/07/22 08:58 Dose: 100 mg Documented By: ELAINA Labs 11/07/22 08:18 11/07/22 08:18 Labs: Laboratory Results - last 24 hr 11/06/22 11/06/22 11/06/22 07:54 10:50 11:35 MCV MCH MCHC RDW Plt Count MPV Absolute Nucleated RBC Nucleated RBC % (auto) Anion Gap Estim Creat Clear Calc Estimated GFR Random Glucose Osmolality 270 L Lactic Acid 1.3 Calcium Urine Osmolality 157 L Ur Random Sodium Ur Random Uric Acid Urine Creatinine Random Vancomycin 11/06/22 11/06/22 11/07/22 11:35 11:35 08:18 MCV 89.3 MCH 28.4 MCHC 31.8 RDW 14.3 Plt Count 131 L MPV 11.8 Absolute Nucleated RBC 0.000 Nucleated RBC % (auto) 0.0 Anion Gap Estim Creat Clear Calc Estimated GFR Random Glucose Osmolality Lactic Acid Calcium Urine Osmolality Ur Random Sodium < 20.0 Ur Random Uric Acid 20.6 Urine Creatinine 46.55 Random Vancomycin 11/07/22 11/07/22 08:18 08:18 MCV MCH MCHC RDW Plt Count MPV Absolute Nucleated RBC Nucleated RBC % (auto) Anion Gap 14 Estim Creat Clear Calc 88.8 Estimated GFR > 60 Random Glucose 122 H Osmolality Lactic Acid Calcium 8.1 L Urine Osmolality Ur Random Sodium Ur Random Uric Acid Urine Creatinine Random Vancomycin 27.2 H* Microbiology Microbiology Results: Microbiology 11/05/22 20:52 Blood Culture - Preliminary Blood - Venous Staphylococcus aureus 11/05/22 20:52 Blood Culture - Preliminary Blood - Venous Staphylococcus aureus 11/05/22 06:02 Blood Culture - Final Blood - Venous Staphylococcus aureus 11/04/22 22:59 Blood Culture - Final Blood - Venous Staphylococcus aureus 11/05/22 Unknown Urine Culture - Final Urine clean catch - Urine fox top Assessment and Plan (1) Sepsis: Status: Acute (2) Opioid use disorder, severe, dependence: Status: Acute (3) Bacteremia due to Staphylococcus: Status: Acute (4) Polysubstance abuse: Status: Acute Plan 27-year-old female past medical history of endocarditis comes into the hospital it body aches found to have fever, tachycardia, evidence of current endocarditis as well as hyponatremia and electrolyte imbalance # Sepsis 2/2 Positive blood cultures likely 2/2 acute endocarditis in IV drug abuser Blood cultures +ve GPC Hx of MSSA Endocarditis 01/14 echocardiogram negative for vegetations Vancomycin for now follow repeated cultures ID eval High Vanco trough, hold and readjust the dose, Follow Vancomycin trough # acute hyponatremia corrected to 131 overnight Follow BMP Urine studies Fluid restriction nephrology following # metabolic acidosis bicarb chronically low follow BMP VBG showing compensation # IV drug use addiction medicine following Continue MEthadone 30mg daily # alcohol use disorder with withdrawal drinks 5 beers/nightly scoring 10 on CIWA, start PHenobarbital protocol thiamine and folic acid supplement DVT ppx: lovenox Given pt need for IV abx and need for further evaluation of endocarditis she will overnight inpatient hospital stay Time Spent With Patient Time: Total time managing care of this patient today ____ minutes. Quality Stroke Does the patient have a stroke diagnosis?: No VTE Prior VTE?: No VTE Risk Level:: Medical - moderate - high VTE Device Contraindication: Treatment Not Indicated VTE Drug Contraindication: N/A - Med Ordered
[2022-11-07 12:00] VITALS: BP 95/65; PULSE 96; RESP 18; TEMP 36.6; O2SAT 94
[2022-11-07] MEDS: guaiFENesin DM 200/20/10 ML 10 ML SYRUP PO ×2 (15:28→20:33)
[2022-11-07 16:00] VITALS: BP 111/57; PULSE 92; RESP 18; TEMP 36.6; O2SAT 93
[2022-11-07 19:19] VITALS: BP 109/59; PULSE 89; RESP 17; TEMP 36.6; O2SAT 92
--- NOTE | 2022-11-07 21:32 | HE.PHANOTE ---
Vancomycin Dosing Level dropped from 27.2 to 13 in about 12 hours. Will restart vancomycin tonight at a lower dose instead of tomorrow morning. Patient will be start on vancomycin 1000 mg Q12H start 11/07 @ 2200. New expected AUC is 513 with a trough of 15.7. Next level is scheduled for 11/09 @ 0800. Joanna NorwoodD
[2022-11-07 23:51] VITALS: BP 108/57; PULSE 86; RESP 18; TEMP 37.1; O2SAT 93
[2022-11-08 03:43] VITALS: BP 97/53; PULSE 89; RESP 20; TEMP 37; O2SAT 92
[2022-11-08] MEDS: Omeprazole 40 MG CAPSULE.DR PO (05:34)
--- NOTE | 2022-11-08 06:11 | PC.NURSE ---
Patient refused scheduled blood cultures in the evening 11/07. RN educated patient on risks and possible delays in care as a result of refusing. Pt verbalized she understood, stating, That's fine. I'll do it tomorrow . Dr. Corea notified.
[2022-11-08 07:16] VITALS: BP 128/75; PULSE 93; RESP 18; TEMP 36.1; O2SAT 96
[2022-11-08] MEDS: methADONE HCl 20 MG/2 ML ORAL.CONC 30 MG PO (10:20)
[2022-11-08] MEDS: vancomycin HCL 1,000 MG in 0.9 % Sodium Chloride 250 ML 270 MG IV ×2 (10:21→21:59)
[2022-11-08] MEDS: Thiamine HCL 100 MG TABLET PO (10:23)
[2022-11-08] MEDS: Folic Acid 1 MG TABLET PO (10:23)
[2022-11-08] MEDS: guaiFENesin DM 200/20/10 ML 10 ML SYRUP PO ×3 (10:24→21:59)
[2022-11-08] MEDS: 0.9 % Sodium Chloride Flush 3 ML SYRINGE IVFLUSH ×3 (10:24→22:04)
[2022-11-08] MEDS: PHENobarbitaL 15 MG TABLET PO ×2 (10:24→21:59)
[2022-11-08 11:13] VITALS: BP 118/74; PULSE 90; RESP 18; TEMP 36.5; O2SAT 92
--- NOTE | 2022-11-08 12:21 | PM.PNNEP ---
Subjective Subjective Date of Service: 11/08/22 Interval history: seen and examined no complaints Physical Exam Vital Signs: Vital Signs: Last Vital Signs Temp 97.7 F 11/08/22 11:13 Pulse 90 11/08/22 11:13 Resp 18 11/08/22 11:13 BP 118/74 11/08/22 11:13 Pulse Ox 92 11/08/22 11:13 O2 Del Method Room Air 11/08/22 11:13 BMI result Body Mass Index 28.4 Const: General: no acute distress HEENT: Head: Yes normocephalic and Yes atraumatic Neck: Neck: Yes supple Resp: Auscultation: clear to auscultation bilaterally Cardio: Heart sounds: S1 normal heart sound present, S2 normal heart sound present and Murmur heart sound present GI: Palpation (GI): Soft to palpation and nontender Extrem: General: Yes no pedal edema Objective Data Labs 11/07/22 08:18 11/07/22 08:18 Labs: Laboratory Results - last 24 hr 11/06/22 11/07/22 07:54 20:58 Lactic Acid 1.3 Random Vancomycin 13.0 L Microbiology Microbiology Results: Microbiology 11/06/22 12:47 Blood - Venous Blood Culture - Final Staphylococcus aureus 11/06/22 12:47 Blood - Venous Blood Culture - Final Staphylococcus aureus 11/05/22 20:52 Blood - Venous Blood Culture - Final Staphylococcus aureus 11/05/22 20:52 Blood - Venous Blood Culture - Final Staphylococcus aureus 11/05/22 06:02 Blood - Venous Blood Culture - Final Staphylococcus aureus 11/04/22 22:59 Blood - Venous Blood Culture - Final Staphylococcus aureus 11/05/22 Unknown Urine clean catch - Urine fox top Urine Culture - Final 11/05/22 05:56 Blood - Venous Blood Culture - Final 11/05/22 05:56 Blood - Venous Blood Culture - Final Procedures Date of Service Date of Service: 11/08/22 Assessment & Plan Assessment and plan (1) Hyponatremia: Status: Acute (2) Metabolic acidosis: Status: Acute Plan Sna improving euvolemic most likely hypotonic hyponatremia multifactorial: -poor solute excretion -excessive fluid intake low Uosm (157) and Natalya (< 20) not c/w SIADH REC c/w fluid restriction 1.5 L sodium bicarbonate 650 mg bid avoid rapid correction follow electrolytes Time Spent With Patient Time: Total time managing care of this patient today ____ minutes. Progress Note: Quality Stroke Does the patient have a stroke diagnosis?: No
--- NOTE | 2022-11-08 13:28 | P.PNIM_ITS ---
Subjective Subjective Date of Service: 11/08/22 Interval History: Seen and evaluated this morning Feels better overall, reporting chills Na improved to 131 all blood cultures positive refusing to repeat labs this morning Review of Systems Review of Systems: Yes all other systems are reviewed and are negative Physical Exam Vital Signs: Vital Signs: Last Vital Signs Temp 97.7 F 11/08/22 11:13 Pulse 90 11/08/22 11:13 Resp 18 11/08/22 11:13 BP 118/74 11/08/22 11:13 Pulse Ox 92 11/08/22 11:13 O2 Del Method Room Air 11/08/22 11:13 BMI result Body Mass Index 28.4 Const: Other: Constitutional : Awake, interactive, not in distress Neck : Normal inspection, Supple Cardiovascular : RRR, no JVP, no lower extremity edema, fine systolic murmur over right ventricle Respiratory : fair bilateral air entry, no crackles, wheezes or rhonchi Gastrointestinal: soft, lax, Normal bowel sounds, Non tender Skin : Warm, Dry Neurological : Alert & oriented x3, No focal deficit Objective Data Active Medications Acetaminophen (Acetaminophen 325 Mg Tablet) 650 mg PO Q6H PRN PRN Reason: Pain, Mild (Pain Scale 1-3) Last Admin: 11/06/22 21:51 Dose: 650 mg Documented By: QUE Al Hydroxide/Mg Hydroxide (Magnesium Hydrox/Alum Hydrox 30 Ml Oral.Susp) 30 ml PO Q6H PRN PRN Reason: Heart burn Docusate Sodium (Docusate Sodium 100 Mg Capsule) 100 mg PO DAILY PRN PRN Reason: Constipation Enoxaparin Sodium (Enoxaparin Sodium 40 Mg/0.4 Ml Syringe) 40 mg SUBCUT Q24H [facility] Last Admin: 11/07/22 20:33 Dose: Not Given Documented By: DEE Non-Admin Reason: Patient Refused Folic Acid (Folic Acid 1 Mg Tablet) 1 mg PO DAILY [facility] Last Admin: 11/08/22 10:23 Dose: 1 mg Documented By: KYREE Guaifenesin/Dextromethorphan (Guaifenesin Dm 200/20/10 Ml 10 Ml Syrup) 10 ml PO TID [facility] Last Admin: 11/08/22 10:24 Dose: 10 ml Documented By: KYREE Vancomycin HCl 1,000 mg/ (Sodium Chloride) 270 mls @ 270 mls/hr IV Q12H [facility] Last Infusion: 11/08/22 11:58 Dose: 270 mls/hr Documented By: KYREE Methadone HCl (Methadone Hcl 20 Mg/2 Ml Oral.Conc) 30 mg PO DAILY [facility] Last Admin: 11/08/22 10:20 Dose: 30 mg Documented By: KYREE Omeprazole (Omeprazole 40 Mg Capsule.Dr) 40 mg PO DAILY@0630 [facility] Last Admin: 11/08/22 05:34 Dose: 40 mg Documented By: DEE Ondansetron HCl (Ondansetron Hcl 4 Mg/2 Ml Vial) 4 mg IVPUSH Q8H PRN PRN Reason: Nausea and Vomiting Pharmacy Consult (Consult Rx Vancomycin Dosing) 1 each MISCELLANE DAILY PRN PRN Reason: Consult order Pharmacy Consult (Consult Rx Vancomycin Dosing) 1 each MISCELLANE DAILY PRN PRN Reason: Consult order Pharmacy Consult (Consult Rx Etoh Phenob Im/Po) 1 each MISCELLANE ONCE PRN; Pro tocol PRN Reason: Consult order Phenobarbital (Phenobarbital 15 Mg Tablet) 15 mg PO BID [facility]; Protocol Stop: 11/09/22 21:01 Last Admin: 11/08/22 10:24 Dose: 15 mg Documented By: KYREE Phenobarbital (Phenobarbital 15 Mg Tablet) 15 mg PO DAILY [facility]; Protocol Stop: 11/11/22 09:01 Sodium Bicarbonate (Sodium Bicarbonate 650 Mg Tablet) 650 mg PO BID [facility] Sodium Chloride (0.9 % Sodium Chloride Flush 3 Ml Syringe) 3 ml IVFLUSH QSHIFT [facility] Last Admin: 11/08/22 10:24 Dose: 3 ml Documented By: KYREE Thiamine HCl (Thiamine Hcl 100 Mg Tablet) 100 mg PO DAILY [facility] Last Admin: 11/08/22 10:23 Dose: 100 mg Documented By: KYREE Labs 11/07/22 08:18 11/07/22 08:18 Labs: Laboratory Results - last 24 hr 11/06/22 11/07/22 07:54 20:58 Lactic Acid 1.3 Random Vancomycin 13.0 L Microbiology Microbiology Results: Microbiology 11/06/22 12:47 Blood Culture - Final Blood - Venous Staphylococcus aureus 11/06/22 12:47 Blood Culture - Final Blood - Venous Staphylococcus aureus 11/05/22 20:52 Blood Culture - Final Blood - Venous Staphylococcus aureus 11/05/22 20:52 Blood Culture - Final Blood - Venous Staphylococcus aureus Assessment and Plan (1) Sepsis: Status: Acute (2) Endocarditis: Status: Acute (3) Metabolic acidosis: Status: Acute (4) Hyponatremia: Status: Acute Plan 27-year-old female past medical history of endocarditis comes into the hospital it body aches found to have fever, tachycardia, evidence of current endocarditis as well as hyponatremia and electrolyte imbalance # Sepsis 2/2 Positive blood cultures likely 2/2 acute endocarditis in IV drug abuser All Blood cultures +ve GPC Hx of MSSA Endocarditis 01/14 echocardiogram negative for vegetations Vancomycin for now To repeat cultures ID eval appreciated Follow Vancomycin trough # acute hyponatremia corrected to 131 Follow BMP Urine studies Fluid restriction nephrology following # metabolic acidosis bicarb chronically low follow BMP VBG showing compensation # IV drug use addiction medicine following Continue MEthadone 30mg daily # alcohol use disorder with withdrawal drinks 5 beers/nightly scoring 10 on CIWA, start PHenobarbital protocol thiamine and folic acid supplement DVT ppx: lovenox Given pt need for IV abx and need for further evaluation of endocarditis she will overnight inpatient hospital stay Time Spent With Patient Time: Total time managing care of this patient today ____ minutes. Quality Stroke Does the patient have a stroke diagnosis?: No VTE Prior VTE?: No VTE Risk Level:: Medical - moderate - high VTE Device Contraindication: Treatment Not Indicated VTE Drug Contraindication: N/A - Med Ordered
--- NOTE | 2022-11-08 15:26 | MHC.CM.PN ---
EMR reviewed and per MD rounds, pt not medically cleared for D/C with concern for endocarditis and need for IV abx. CM will continue to follow.
[2022-11-08 15:38] VITALS: BP 103/62; PULSE 91; RESP 14; TEMP 36.4; O2SAT 95
[2022-11-08 15:40] LABS: Creatinine Clr Calc Pharmacy 73.6; Estimated Glomerular Filt Rate > 60
[2022-11-08] MEDS: Acetaminophen 325 MG TABLET 650 MG PO (15:42)
--- NOTE | 2022-11-08 16:26 | P.CDIM_ITS ---
PROVIDER RESPONSE TEXT: To clarify, the appropriate diagnosis supported by the clinical indicators: Acute endocarditis QUERY TEXT: PHYSICIAN'S DOCUMENTATION REQUEST Date of Query: 11/08/2022 08:12 AM EDT Patient Name: Vanda Ch Admit Date: 11/05/2022 Dear Meli Senior, A review of the medical record indicates additional documentation may be needed. Please review below and update the documentation accordingly. Clinical Indicators: H&P: Assessment and plan - endocarditis, infective, unspecified organism, acute Plan: Acute endocarditis, Echo obtained, IV antibiotics PN: Sepsis 2/2 positive blood cultures likely 2/2 acute endocarditis in IV drug user. Based on the above, clarity and consistency of documentation: Acute endocarditis Acute/subacute infective endocarditis Rheumatic endocarditis Other specified Other (explain)Clinically unable to determine (explain)Thank you, Janel Vera, CCS, CDIS Use of terms such as suspected, likely, concern for, or probable (associated with a specific diagnosi s that is being evaluated, monitored, or treated as if it exists) are acceptable and can be coded in the inpatient se tting, when documented at the time of discharge. Please use your independent medical judgment in providing your response. THIS QUERY IS PART OF THE PERMANENT MEDICAL RECORD
--- NOTE | 2022-11-08 16:43 | HO.ADDICTPRO ---
Subjective Subjective Date of Service: 11/08/22 Reason For Visit: IVDU, concerning for Endocarditis Interim History: Patient seen in follow up Initially asleep, but woke easily to speak with this freelance writer. Reporting current methadone dose is helpful, however she is requesting dose be increased as she is still experiencing moments of feeling really hot and really cold . Denies any nausea, joint pain, or loose stools. Review of Systems Constitutional: Reports as per HPI Mental Status Exam Mental Status Exam Patient Appearance: Appropriate Level of Consciousness: Awake Diagnostics Vital Signs (24Hr): Vital Signs - 24 hr 11/07/22 19:19 11/07/22 23:51 11/08/22 03:43 Temperature 97.8 F 98.7 F 98.6 F Pulse Rate 89 86 89 Respiratory Rate 17 18 20 Blood Pressure 109/59 L 108/57 L 97/53 L Pulse Oximetry 92 93 92 Oxygen Delivery Method Room Air Room Air Room Air 11/08/22 07:16 11/08/22 11:13 11/08/22 15:38 Temperature 96.9 F 97.7 F 97.5 F Pulse Rate 93 90 91 Respiratory Rate 18 18 14 Blood Pressure 128/75 118/74 103/62 Pulse Oximetry 96 92 95 Oxygen Delivery Method Room Air Room Air Room Air BMI result Body Mass Index 28.4 Labs 11/07/22 08:18 11/08/22 15:04 Labs: Laboratory Results - last 48 hr 11/06/22 11/07/22 11/07/22 07:54 08:18 08:18 WBC 7.0 RBC 3.63 L Hgb 10.3 L Hct 32.4 L MCV 89.3 MCH 28.4 MCHC 31.8 RDW 14.3 Plt Count 131 L MPV 11.8 Absolute Nucleated RBC 0.000 Nucleated RBC % (auto) 0.0 Sodium 131 L Potassium 3.5 Chloride 107 Carbon Dioxide 14 L Anion Gap 14 BUN 9 Creatinine 0.82 Estim Creat Clear Calc 88.8 Estimated GFR > 60 Random Glucose 122 H Lactic Acid 1.3 Calcium 8.1 L Random Vancomycin 11/07/22 11/07/22 11/08/22 08:18 20:58 15:04 WBC RBC Hgb Hct MCV MCH MCHC RDW Plt Count MPV Absolute Nucleated RBC Nucleated RBC % (auto) Sodium Potassium Chloride Carbon Dioxide Anion Gap BUN Creatinine 0.99 Estim Creat Clear Calc 73.6 Estimated GFR > 60 Random Glucose Lactic Acid Calcium Random Vancomycin 27.2 H* 13.0 L Imaging Radiology Impressions: ITS Impressions Chest X-Ray 11/04/22 23:35 IMPRESSION: No new focal airspace opacity. Stable trace right pleural effusion versus pleural thickening. No pneumothorax. Medications Medications Current Medications Acetaminophen (Acetaminophen 325 Mg Tablet) 650 mg PO Q6H PRN PRN Reason: Pain, Mild (Pain Scale 1-3) Last Admin: 11/08/22 15:42 Dose: 650 mg Al Hydroxide/Mg Hydroxide (Magnesium Hydrox/Alum Hydrox 30 Ml Oral.Susp) 30 ml PO Q6H PRN PRN Reason: Heart burn Docusate Sodium (Docusate Sodium 100 Mg Capsule) 100 mg PO DAILY PRN PRN Reason: Constipation Enoxaparin Sodium (Enoxaparin Sodium 40 Mg/0.4 Ml Syringe) 40 mg SUBCUT Q24H [facility] Last Admin: 11/07/22 20:33 Dose: Not Given Folic Acid (Folic Acid 1 Mg Tablet) 1 mg PO DAILY [facility] Last Admin: 11/08/22 10:23 Dose: 1 mg Guaifenesin/Dextromethorphan (Guaifenesin Dm 200/20/10 Ml 10 Ml Syrup) 10 ml PO TID [facility] Last Admin: 11/08/22 15:40 Dose: 10 ml Vancomycin HCl 1,000 mg/ (Sodium Chloride) 270 mls @ 270 mls/hr IV Q12H [facility] Last Infusion: 11/08/22 11:58 Dose: Infused Methadone HCl (Methadone Hcl 20 Mg/2 Ml Oral.Conc) 40 mg PO DAILY [facility] Omeprazole (Omeprazole 40 Mg Capsule.Dr) 40 mg PO DAILY@0630 [facility] Last Admin: 11/08/22 05:34 Dose: 40 mg Ondansetron HCl (Ondansetron Hcl 4 Mg/2 Ml Vial) 4 mg IVPUSH Q8H PRN PRN Reason: Nausea and Vomiting Pharmacy Consult (Consult Rx Vancomycin Dosing) 1 each MISCELLANE DAILY PRN PRN Reason: Consult order Pharmacy Consult (Consult Rx Vancomycin Dosing) 1 each MISCELLANE DAILY PRN PRN Reason: Consult order Pharmacy Consult (Consult Rx Etoh Phenob Im/Po) 1 each MISCELLANE ONCE PRN; Protocol PRN Reason: Consult order Phenobarbital (Phenobarbital 15 Mg Tablet) 15 mg PO BID [facility]; Protocol Stop: 11/09/22 21:01 Last Admin: 11/08/22 10:24 Dose: 15 mg Phenobarbital (Phenobarbital 15 Mg Tablet) 15 mg PO DAILY [facility]; Protocol Stop: 11/11/22 09:01 Sodium Bicarbonate (Sodium Bicarbonate 650 Mg Tablet) 650 mg PO BID [facility] Sodium Chloride (0.9 % Sodium Chloride Flush 3 Ml Syringe) 3 ml IVFLUSH QSHIFT [facility] Last Admin: 11/08/22 15:51 Dose: 3 ml Thiamine HCl (Thiamine Hcl 100 Mg Tablet) 100 mg PO DAILY [facility] Last Admin: 11/08/22 10:23 Dose: 100 mg Allergies Allergies Allergy/AdvReac Type Severity Reaction Status Date / Time cefazolin Allergy Rash Verified 12/25/21 15:52 Assessment & Plan Assessment & Plan (1) Opioid use disorder, severe, dependence: Status: Acute Code(s): F11.20 - Opioid dependence, uncomplicated Assessment and Plan: 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
[2022-11-08 18:42] VITALS: BP 112/58; PULSE 82; RESP 18; TEMP 35.8; O2SAT 95
[2022-11-08] MEDS: Sodium Bicarbonate 650 MG TABLET PO (21:59)
[2022-11-09] VITALS (7 sets, daily range): BP systolic 100–142; BP diastolic 58–83; PULSE 79–94; RESP 16–20; TEMP 35.9–37.8; O2SAT 90–95
[2022-11-09] MEDS: Omeprazole 40 MG CAPSULE.DR PO (05:40)
[2022-11-09] MEDS: methADONE HCl 20 MG/2 ML ORAL.CONC 40 MG PO (08:42)
[2022-11-09] MEDS: guaiFENesin DM 200/20/10 ML 10 ML SYRUP PO ×3 (08:42→20:16)
[2022-11-09] MEDS: 0.9 % Sodium Chloride Flush 3 ML SYRINGE IVFLUSH ×2 (08:43→14:33)
[2022-11-09] MEDS: Thiamine HCL 100 MG TABLET PO (08:43)
[2022-11-09] MEDS: Folic Acid 1 MG TABLET PO (08:43)
[2022-11-09] MEDS: Sodium Bicarbonate 650 MG TABLET PO ×2 (08:43→20:17)
[2022-11-09] MEDS: PHENobarbitaL 15 MG TABLET PO ×2 (08:44→20:14)
[2022-11-09] MEDS: Acetaminophen 325 MG TABLET 650 MG PO (08:50)
[2022-11-09 11:16] LABS: Anion Gap 10 (12-20); Blood Urea Nitrogen 10 mg/dL (9-16); Calcium 7.6 mg/dL (8.4-10.2); Carbon Dioxide 19 mmol/L (22-29); Chloride 104 mmol/L (96-108); Estimated Glomerular Filt Rate > 60; Glucose Random 107 mg/dL (60-115); Potassium 3.7 mmol/L (3.3-5.1); Sodium 129 mmol/L (135-145)
[2022-11-09 11:20] LABS: Vancomycin Random 17.9 mcg/mL (15-20)
--- NOTE | 2022-11-09 11:30 | HE.PHANOTE ---
Vancomycin Dosing Level 17.9 today. Level was drawn 2 and half hours late so this does not adequate represent a true trough. Scr is slowly rising. Expected AUC on current dose is expected to be supratherapeutic. Will decrease dose to vancomycin 750 mg Q12H. New expected AUC is 501 with a trough of 16.2. Next level in 24 hours to confirm dose is good. Pharmacy will continue to monitor renal function. Kesha Rachel, JoannaD
--- NOTE | 2022-11-09 11:44 | PM.PNNEP ---
Subjective Subjective Date of Service: 11/09/22 Interval history: seen and examined no complaints Physical Exam Vital Signs: Vital Signs: Last Vital Signs Temp 97.6 F 11/09/22 11:30 Pulse 79 11/09/22 11:30 Resp 16 11/09/22 11:30 BP 100/58 L 11/09/22 11:30 Pulse Ox 92 11/09/22 11:30 O2 Del Method Room Air 11/09/22 11:30 BMI result Body Mass Index 28.4 Const: General: no acute distress HEENT: Head: Yes normocephalic and Yes atraumatic Neck: Neck: Yes supple Resp: Auscultation: clear to auscultation bilaterally Cardio: Heart sounds: S1 normal heart sound present, S2 normal heart sound present and Murmur heart sound present GI: Palpation (GI): Soft to palpation and nontender Extrem: General: Yes no pedal edema Objective Data Labs 11/07/22 08:18 11/09/22 10:42 Labs: Laboratory Results - last 24 hr 11/08/22 11/09/22 11/09/22 15:04 10:42 10:42 Sodium 129 L Potassium 3.7 Chloride 104 Carbon Dioxide 19 L Anion Gap 10 L BUN 10 Creatinine 0.99 1.04 Estim Creat Clear Calc 73.6 70.0 Estimated GFR > 60 > 60 Random Glucose 107 Calcium 7.6 L D Random Vancomycin 17.9 Microbiology Microbiology Results: Microbiology 11/06/22 12:47 Blood - Venous Blood Culture - Final Staphylococcus aureus 11/06/22 12:47 Blood - Venous Blood Culture - Final Staphylococcus aureus 11/05/22 20:52 Blood - Venous Blood Culture - Final Staphylococcus aureus 11/05/22 20:52 Blood - Venous Blood Culture - Final Staphylococcus aureus 11/05/22 06:02 Blood - Venous Blood Culture - Final Staphylococcus aureus 11/04/22 22:59 Blood - Venous Blood Culture - Final Staphylococcus aureus 11/05/22 Unknown Urine clean catch - Urine fox top Urine Culture - Final 11/05/22 05:56 Blood - Venous Blood Culture - Final 11/05/22 05:56 Blood - Venous Blood Culture - Final Procedures Date of Service Date of Service: 11/09/22 Assessment & Plan Assessment and plan (1) Hyponatremia: Status: Acute (2) Metabolic acidosis: Status: Acute Plan euvolemic most likely hypotonic hyponatremia multifactorial: -poor solute excretion -excessive fluid intake low Uosm (157) and Natalya (< 20) not c/w SIADH REC reinforce fluid restriction 1.5 L sodium bicarbonate 650 mg bid follow electrolytes Time Spent With Patient Time: Total time managing care of this patient today ____ minutes. Progress Note: Quality Stroke Does the patient have a stroke diagnosis?: No
--- NOTE | 2022-11-09 12:00 | HO.PM.IMPN ---
Subjective Subjective Date of Service: 11/09/22 Interval History: lousy Physical Exam Vital Signs: Vital Signs: Last Vital Signs Temp 97.6 F 11/09/22 11:30 Pulse 79 11/09/22 11:30 Resp 16 11/09/22 11:30 BP 100/58 L 11/09/22 11:30 Pulse Ox 92 11/09/22 11:30 O2 Del Method Room Air 11/09/22 11:30 BMI result Body Mass Index 28.4 Const: General: no acute distress HEENT: Head: Yes normocephalic and Yes atraumatic Neck: Neck: Yes supple Resp: Auscultation: clear to auscultation bilaterally Cardio: Heart sounds: S1 normal heart sound present, S2 normal heart sound present and Murmur heart sound present GI: Palpation (GI): Soft to palpation and nontender Extrem: General: Yes no pedal edema Objective Data Active Medications Acetaminophen (Acetaminophen 325 Mg Tablet) 650 mg PO Q6H PRN PRN Reason: Pain, Mild (Pain Scale 1-3) Last Admin: 11/09/22 08:50 Dose: 650 mg Documented By: BEBETO Al Hydroxide/Mg Hydroxide (Magnesium Hydrox/Alum Hydrox 30 Ml Oral.Susp) 30 ml PO Q6H PRN PRN Reason: Heart burn Docusate Sodium (Docusate Sodium 100 Mg Capsule) 100 mg PO DAILY PRN PRN Reason: Constipation Enoxaparin Sodium (Enoxaparin Sodium 40 Mg/0.4 Ml Syringe) 40 mg SUBCUT Q24H [facility] Last Admin: 11/08/22 21:52 Dose: Not Given Documented By: DEE Non-Admin Reason: Patient Refused Folic Acid (Folic Acid 1 Mg Tablet) 1 mg PO DAILY [facility] Last Admin: 11/09/22 08:43 Dose: 1 mg Documented By: BEBETO Guaifenesin/Dextromethorphan (Guaifenesin Dm 200/20/10 Ml 10 Ml Syrup) 10 ml PO TID [facility] Last Admin: 11/09/22 08:42 Dose: 10 ml Documented By: BEBETO Vancomycin HCl 750 mg/ Sodium (Chloride) 265 mls @ 265 mls/hr IV Q12H [facility] Methadone HCl (Methadone Hcl 20 Mg/2 Ml Oral.Conc) 40 mg PO DAILY [facility] Last Admin: 11/09/22 08:42 Dose: 40 mg Documented By: BEBETO Omeprazole (Omeprazole 40 Mg Capsule.Dr) 40 mg PO DAILY@0630 [facility] Last Admin: 11/09/22 05:40 Dose: 40 mg Documented By: JIM Ondansetron HCl (Ondansetron Hcl 4 Mg/2 Ml Vial) 4 mg IVPUSH Q8H PRN PRN Reason: Nausea and Vomiting Pharmacy Consult (Consult Rx Vancomycin Dosing) 1 each MISCELLANE DAILY PRN PRN Reason: Consult order Pharmacy Consult (Consult Rx Vancomycin Dosing) 1 each MISCELLANE DAILY PRN PRN Reason: Consult order Pharmacy Consult (Consult Rx Etoh Phenob Im/Po) 1 each MISCELLANE ONCE PRN; Protocol PRN Reason: Consult order Phenobarbital (Phenobarbital 15 Mg Tablet) 15 mg PO BID [facility]; Protocol Stop: 11/09/22 21:01 Last Admin: 11/09/22 08:44 Dose: 15 mg Documented By: BEBETO Phenobarbital (Phenobarbital 15 Mg Tablet) 15 mg PO DAILY [facility]; Protocol Stop: 11/11/22 09:01 Sodium Bicarbonate (Sodium Bicarbonate 650 Mg Tablet) 650 mg PO BID [facility] Last Admin: 11/09/22 08:43 Dose: 650 mg Documented By: BEBETO Sodium Chloride (0.9 % Sodium Chloride Flush 3 Ml Syringe) 3 ml IVFLUSH QSHIFT [facility] Last Admin: 11/09/22 08:43 Dose: 3 ml Documented By: BEBETO Thiamine HCl (Thiamine Hcl 100 Mg Tablet) 100 mg PO DAILY [facility] Last Admin: 11/09/22 08:43 Dose: 100 mg Documented By: BEBETO Labs 11/07/22 08:18 11/09/22 10:42 Labs: Laboratory Results - last 24 hr 11/08/22 11/09/22 11/09/22 15:04 10:42 10:42 Anion Gap 10 L Estim Creat Clear Calc 73.6 70.0 Estimated GFR > 60 > 60 Random Glucose 107 Calcium 7.6 L D Random Vancomycin 17.9 Microbiology Microbiology Results: Microbiology 11/06/22 12:47 Blood Culture - Final Blood - Venous Staphylococcus aureus 11/06/22 12:47 Blood Culture - Final Blood - Venous Staphylococcus aureus Assessment and Plan (1) Sepsis: Status: Acute (2) Endocarditis: Status: Acute (3) Metabolic acidosis: Status: Acute (4) Hyponatremia: Status: Acute Plan 27F PMH polysubstance dependence, endocarditis presented with body aches found to have fever, tachycardia, evidence of current endocarditis as well as hyponatremia and electrolyte imbalance Sepsis due to MSSA bacteremia/endocarditis in IVDA follow up repeat vanc (cefazolin allergy) ID following acute hyponatremia Follow BMP nephrology following acute on chronic metabolic acidosis bicarb chronically low follow BMP VBG showing compensation oral bicarb opiate dependence addiction medicine following Continue MEthadone 30mg daily alcohol dependence wiith withdrawal drinks 5 beers/nightly PHenobarbital protocol thiamine and folic acid supplement DVT ppx: lovenox full code reason for continued hospitalization:awaiting negative cultures Time Spent With Patient Time: Total time managing care of this patient today ____ minutes. Quality Stroke Does the patient have a stroke diagnosis?: No VTE Prior VTE?: No VTE Risk Level:: Medical - moderate - high VTE Device Contraindication: Treatment Not Indicated VTE Drug Contraindication: N/A - Med Ordered
[2022-11-09] MEDS: vancomycin HCL 750 MG in 0.9 % Sodium Chloride 250 ML 265 MG IV (12:16)
--- NOTE | 2022-11-09 14:49 | MHC.RECOVRN ---
Addendum entered by Maira Vega 11/09/22 15:17: Per CM, no dc plans yet or referrals sent to STRs. Will await notification prior to sending OTP referrals. Original Note: Attempted to meet with pt to follow up on methadone titration and offer support. Pt laying in bed, asleep, very briefly wakes to voice and falls back to sleep. Unable to engage in conversation. Pt will need OTP referrals to continue methadone, awaiting notification from CM with dc plans.
[2022-11-09] MEDS: Docusate Sodium 100 MG CAPSULE PO (20:14)
[2022-11-10] MEDS: vancomycin HCL 750 MG in 0.9 % Sodium Chloride 250 ML 265 MG IV (00:12)
[2022-11-10] MEDS: 0.9 % Sodium Chloride Flush 3 ML SYRINGE IVFLUSH ×4 (00:12→22:26)
[2022-11-10 03:39] VITALS: BP 122/69; PULSE 92; RESP 20; TEMP 36.6; O2SAT 90
[2022-11-10] MEDS: Omeprazole 40 MG CAPSULE.DR PO (05:55)
[2022-11-10 07:37] VITALS: BP 104/66; PULSE 89; RESP 16; TEMP 37.4; O2SAT 93
--- NOTE | 2022-11-10 08:35 | P.PNIM_ITS ---
Subjective Subjective Date of Service: 11/10/22 Interval History: weak Physical Exam Vital Signs: Vital Signs: Last Vital Signs Temp 99.3 F 11/10/22 07:37 Pulse 89 11/10/22 07:37 Resp 16 11/10/22 07:37 BP 104/66 11/10/22 07:37 Pulse Ox 93 11/10/22 07:37 O2 Del Method Room Air 11/10/22 07:37 O2 Flow Rate 4 11/09/22 23:48 BMI result Body Mass Index 28.4 Const: General: no acute distress HEENT: Head: Yes normocephalic and Yes atraumatic Neck: Neck: Yes supple Resp: Auscultation: clear to auscultation bilaterally Cardio: Heart sounds: S1 normal heart sound present, S2 normal heart sound present and Murmur heart sound present GI: Palpation (GI): Soft to palpation and nontender Extrem: General: Yes no pedal edema Objective Data Active Medications Acetaminophen (Acetaminophen 325 Mg Tablet) 650 mg PO Q6H PRN PRN Reason: Pain, Mild (Pain Scale 1-3) Last Admin: 11/09/22 08:50 Dose: 650 mg Documented By: BEBETO Al Hydroxide/Mg Hydroxide (Magnesium Hydrox/Alum Hydrox 30 Ml Oral.Susp) 30 ml PO Q6H PRN PRN Reason: Heart burn Docusate Sodium (Docusate Sodium 100 Mg Capsule) 100 mg PO DAILY PRN PRN Reason: Constipation Last Admin: 11/09/22 20:14 Dose: 100 mg Documented By: MIMI Enoxaparin Sodium (Enoxaparin Sodium 40 Mg/0.4 Ml Syringe) 40 mg SUBCUT Q24H [facility] 234 BEDS AT [facility] Last Admin: 11/09/22 20:16 Dose: Not Given Documented By: MIMI Non-Admin Reason: Patient Refused Folic Acid (Folic Acid 1 Mg Tablet) 1 mg PO DAILY [facility] 234 BEDS AT [facility] Last Admin: 11/09/22 08:43 Dose: 1 mg Documented By: BEBETO Guaifenesin/Dextromethorphan (Guaifenesin Dm 200/20/10 Ml 10 Ml Syrup) 10 ml PO TID [facility] 234 BEDS AT [facility] Last Admin: 11/09/22 20:16 Dose: 10 ml Documented By: MIMI Vancomycin HCl 750 mg/ Sodium (Chloride) 265 mls @ 265 mls/hr IV Q12H [facility]CLUDE 234 BEDS AT [facility] Last Infusion: 11/10/22 02:30 Dose: 0 mls/hr Documented By: MIIM Methadone HCl (Methadone Hcl 20 Mg/2 Ml Oral.Conc) 40 mg PO DAILY [facility] 234 BEDS AT [facility] Last Admin: 11/09/22 08:42 Dose: 40 mg Documented By: BEBETO Omeprazole (Omeprazole 40 Mg Capsule.Dr) 40 mg PO DAILY@0630 [facility]CLUDE 234 BEDS AT [facility] Last Admin: 11/10/22 05:55 Dose: 40 mg Documented By: MIMI Ondansetron HCl (Ondansetron Hcl 4 Mg/2 Ml Vial) 4 mg IVPUSH Q8H PRN PRN Reason: Nausea and Vomiting Pharmacy Consult (Consult Rx Vancomycin Dosing) 1 each MISCELLANE DAILY PRN PRN Reason: Consult order Pharmacy Consult (Consult Rx Vancomycin Dosing) 1 each MISCELLANE DAILY PRN PRN Reason: Consult order Pharmacy Consult (Consult Rx Etoh Phenob Im/Po) 1 each MISCELLANE ONCE PRN; Protocol PRN Reason: Consult order Phenobarbital (Phenobarbital 15 Mg Tablet) 15 mg PO DAILY [facility] 234 BEDS AT [facility]; Protocol Stop: 11/11/22 09:01 Sodium Bicarbonate (Sodium Bicarbonate 650 Mg Tablet) 650 mg PO BID [facility] 234 BEDS AT [facility] Last Admin: 11/09/22 20:17 Dose: 650 mg Documented By: MIMI Comments: barcode ripped Sodium Chloride (0.9 % Sodium Chloride Flush 3 Ml Syringe) 3 ml IVFLUSH QSHIFT [facility]CLUDE 234 BEDS AT [facility] Last Admin: 11/10/22 00:12 Dose: 3 ml Documented By: MIMI Thiamine HCl (Thiamine Hcl 100 Mg Tablet) 100 mg PO DAILY [facility] 234 BEDS AT [facility] Last Admin: 11/09/22 08:43 Dose: 100 mg Documented By: BEBETO Labs 11/07/22 08:18 11/09/22 10:42 Labs: Laboratory Results - last 24 hr 11/09/22 11/09/22 10:42 10:42 Anion Gap 10 L Estim Creat Clear Calc 70.0 Estimated GFR > 60 Random Glucose 107 Calcium 7.6 L D Random Vancomycin 17.9 Microbiology Microbiology Results: Microbiology 11/08/22 15:04 Blood Culture - Preliminary Blood - Venous No growth after 24 hours. 11/08/22 15:04 Blood Culture - Preliminary Blood - Venous No growth after 24 hours. Assessment and Plan (1) Sepsis: Status: Acute (2) Endocarditis: Status: Acute (3) Metabolic acidosis: Status: Acute (4) Hyponatremia: Status: Acute Plan 27F PMH polysubstance dependence, endocarditis presented with body aches found to have fever, tachycardia, evidence of current endocarditis as well as hyponatremia and electrolyte imbalance Sepsis due to MSSA bacteremia/endocarditis in IVDA so far negative from 11/08/22 - end date potentially 12/19/22 if stays negative vanc (cefazolin allergy) ID following acute hyponatremia mild acute on chronic metabolic acidosis bicarb chronically low follow BMP VBG showing compensation oral bicarb opiate dependence addiction medicine following Continue Methadone 30mg daily alcohol dependence wiith withdrawal drinks 5 beers/nightly PHenobarbital protocol thiamine and folic acid supplement DVT ppx: lovenox full code reason for continued hospitalization:needs safe dispo Time Spent With Patient Time: Total time managing care of this patient today ____ minutes. Quality Stroke Does the patient have a stroke diagnosis?: No VTE Prior VTE?: No VTE Risk Level:: Medical - moderate - high VTE Device Contraindication: Treatment Not Indicated VTE Drug Contraindication: N/A - Med Ordered
[2022-11-10] MEDS: Folic Acid 1 MG TABLET PO (08:48)
[2022-11-10] MEDS: Sodium Bicarbonate 650 MG TABLET PO ×2 (08:48→22:24)
[2022-11-10] MEDS: Thiamine HCL 100 MG TABLET PO (08:48)
[2022-11-10] MEDS: methADONE HCl 20 MG/2 ML ORAL.CONC 40 MG PO (08:49)
[2022-11-10] MEDS: guaiFENesin DM 200/20/10 ML 10 ML SYRUP PO ×3 (08:49→22:24)
[2022-11-10] MEDS: PHENobarbitaL 15 MG TABLET PO (08:49)
[2022-11-10] MEDS: polyethylene glycoL 3350 17 GM POWD.PACK PO (09:11)
[2022-11-10 11:21] VITALS: BP 111/69; PULSE 82; RESP 18; TEMP 36.6; O2SAT 92
--- NOTE | 2022-11-10 11:50 | MHC.CM.PN ---
EMR reviewed and per MD rounds, pt is not medically cleared for D/C and will need IV ABX for 4-6 weeks, pt states she [facility], hospitalist aware. CM will continue to follow for D/C.
--- NOTE | 2022-11-10 12:45 | PM.PNNEP ---
Subjective Subjective Date of Service: 11/10/22 Interval history: seen and examined feels weak Physical Exam Vital Signs: Vital Signs: Last Vital Signs Temp 97.8 F 11/10/22 11:21 Pulse 82 11/10/22 11:21 Resp 18 11/10/22 11:21 BP 111/69 11/10/22 11:21 Pulse Ox 92 11/10/22 11:21 O2 Del Method Room Air 11/10/22 11:21 O2 Flow Rate 4 11/09/22 23:48 BMI result Body Mass Index 28.4 Const: General: no acute distress HEENT: Head: Yes normocephalic and Yes atraumatic Neck: Neck: Yes supple Resp: Auscultation: clear to auscultation bilaterally Cardio: Heart sounds: S1 normal heart sound present, S2 normal heart sound present and Murmur heart sound present GI: Palpation (GI): Soft to palpation and nontender Extrem: General: Yes no pedal edema Objective Data Labs 11/07/22 08:18 11/09/22 10:42 Microbiology Microbiology Results: Microbiology 11/08/22 15:04 Blood - Venous Blood Culture - Preliminary No growth after 24 hours. 11/08/22 15:04 Blood - Venous Blood Culture - Preliminary No growth after 24 hours. 11/06/22 12:47 Blood - Venous Blood Culture - Final Staphylococcus aureus 11/06/22 12:47 Blood - Venous Blood Culture - Final Staphylococcus aureus 11/05/22 20:52 Blood - Venous Blood Culture - Final Staphylococcus aureus 11/05/22 20:52 Blood - Venous Blood Culture - Final Staphylococcus aureus 11/05/22 06:02 Blood - Venous Blood Culture - Final Staphylococcus aureus 11/04/22 22:59 Blood - Venous Blood Culture - Final Staphylococcus aureus 11/05/22 Unknown Urine clean catch - Urine fox top Urine Culture - Final 11/05/22 05:56 Blood - Venous Blood Culture - Final 11/05/22 05:56 Blood - Venous Blood Culture - Final Procedures Date of Service Date of Service: 11/10/22 Assessment & Plan Assessment and plan (1) Hyponatremia: Status: Acute (2) Metabolic acidosis: Status: Acute Plan euvolemic most likely hypotonic hyponatremia multifactorial: -poor solute excretion -excessive fluid intake low Uosm (157) and Natalya (< 20) not c/w SIADH REC reinforce fluid restriction 1.5 L c/w sodium bicarbonate 650 mg bid follow electrolytes Time Spent With Patient Time: Total time managing care of this patient today ____ minutes. Progress Note: Quality Stroke Does the patient have a stroke diagnosis?: No
--- NOTE | 2022-11-10 13:32 | MHC.RECOVRN ---
Met with pt in 462 to follow up regarding methadone titration. Pt laying in bed, eyes closed, wakes to voice. Difficult to engage at first, requesting to be left alone to sleep but eventually engages with t/w. Pt continues to report diaphoresis and is requesting increase in methadone. Pt denies other withdrawal symptoms. Per CM, pt declines STR. Pt states I just want to go home. Pt reports she is currently staying with a friend in [place]. Regardless of dc plans, pt would like to continue methadone with [facility]. Pt encouraged to reconsider usp IV abx and educated on risks if she declines. Pt denies other questions or concerns. Discussed with provider, plan to increase to 45 mg methadone starting tomorrow 11/11. Referral sent to [facility].
[2022-11-10] MEDS: DAPTOmycin 600 MG in 0.9 % Sodium Chloride 50 ML 124 MG IV (13:58)
[2022-11-10 15:57] VITALS: BP 115/68; PULSE 86; RESP 17; TEMP 37.1; O2SAT 96
[2022-11-10 19:44] VITALS: BP 116/77; PULSE 82; RESP 17; TEMP 36.8; O2SAT 96
[2022-11-11] VITALS (7 sets, daily range): BP systolic 114–129; BP diastolic 72–88; PULSE 58–87; RESP 14–18; TEMP 36.3–37; O2SAT 92–98
--- NOTE | 2022-11-11 08:56 | P.PNIM_ITS ---
Subjective Subjective Date of Service: 11/11/22 Interval History: improved Physical Exam Vital Signs: Vital Signs: Last Vital Signs Temp 98.4 F 11/11/22 07:11 Pulse 78 11/11/22 07:11 Resp 18 11/11/22 07:11 BP 129/82 11/11/22 07:11 Pulse Ox 94 11/11/22 07:11 O2 Del Method Room Air 11/11/22 07:11 O2 Flow Rate 4 11/09/22 23:48 BMI result Body Mass Index 28.4 Const: General: no acute distress HEENT: Head: Yes normocephalic and Yes atraumatic Neck: Neck: Yes supple Resp: Auscultation: clear to auscultation bilaterally Cardio: Heart sounds: S1 normal heart sound present, S2 normal heart sound present and Murmur heart sound present GI: Palpation (GI): Soft to palpation and nontender Extrem: General: Yes no pedal edema Objective Data Active Medications Acetaminophen (Acetaminophen 325 Mg Tablet) 650 mg PO Q6H PRN PRN Reason: Pain, Mild (Pain Scale 1-3) Last Admin: 11/09/22 08:50 Dose: 650 mg Documented By: BEBETO Al Hydroxide/Mg Hydroxide (Magnesium Hydrox/Alum Hydrox 30 Ml Oral.Susp) 30 ml PO Q6H PRN PRN Reason: Heart burn Docusate Sodium (Docusate Sodium 100 Mg Capsule) 100 mg PO DAILY PRN PRN Reason: Constipation Last Admin: 11/09/22 20:14 Dose: 100 mg Documented By: MIMI Enoxaparin Sodium (Enoxaparin Sodium 40 Mg/0.4 Ml Syringe) 40 mg SUBCUT Q24H [facility] Last Admin: 11/10/22 22:24 Dose: Not Given Documented By: ZENAIDA Non-Admin Reason: Patient Refused Folic Acid (Folic Acid 1 Mg Tablet) 1 mg PO DAILY [facility] Last Admin: 11/10/22 08:48 Dose: 1 mg Documented By: DARRIUS Guaifenesin/Dextromethorphan (Guaifenesin Dm 200/20/10 Ml 10 Ml Syrup) 10 ml PO TID [facility] Last Admin: 11/10/22 22:24 Dose: 10 ml Documented By: ZENAIDA Daptomycin 600 mg/ Sodium (Chloride) 62 mls @ 124 mls/hr IV Q24H [facility] Last Infusion: 11/10/22 14:31 Dose: 0 mls/hr Documented By: DARRIUS Methadone HCl (Methadone Hcl 20 Mg/2 Ml Oral.Conc) 45 mg PO DAILY [facility] Omeprazole (Omeprazole 40 Mg Capsule.Dr) 40 mg PO DAILY@0630 [facility] Last Admin: 11/11/22 06:00 Dose: Not Given Documented By: ZENAIDA Non-Admin Reason: Patient Refused Ondansetron HCl (Ondansetron Hcl 4 Mg/2 Ml Vial) 4 mg IVPUSH Q8H PRN PRN Reason: Nausea and Vomiting Pharmacy Consult (Consult Rx Etoh Phenob Im/Po) 1 each MISCELLANE ONCE PRN; Protocol PRN Reason: Consult order Phenobarbital (Phenobarbital 15 Mg Tablet) 15 mg PO DAILY [facility]; Protocol Stop: 11/11/22 09:01 Last Admin: 11/10/22 08:49 Dose: 15 mg Documented By: DARRIUS Sodium Bicarbonate (Sodium Bicarbonate 650 Mg Tablet) 650 mg PO BID [facility] Last Admin: 11/10/22 22:24 Dose: 650 mg Documented By: ZENAIDA Sodium Chloride (0.9 % Sodium Chloride Flush 3 Ml Syringe) 3 ml IVFLUSH QSHIFT [facility] Last Admin: 11/10/22 22:26 Dose: 3 ml Documented By: ZENAIDA Thiamine HCl (Thiamine Hcl 100 Mg Tablet) 100 mg PO DAILY [facility] Last Admin: 11/10/22 08:48 Dose: 100 mg Documented By: DARRIUS Labs 11/07/22 08:18 11/09/22 10:42 Microbiology Microbiology Results: Microbiology 11/08/22 15:04 Blood Culture - Preliminary Blood - Venous No growth after 48 hours. 11/08/22 15:04 Blood Culture - Preliminary Blood - Venous No growth after 48 hours. Assessment and Plan (1) Sepsis: Status: Acute (2) Endocarditis: Status: Acute (3) Metabolic acidosis: Status: Acute (4) Hyponatremia: Status: Acute Plan 27F PMH polysubstance dependence, endocarditis presented with body aches found to have fever, tachycardia, evidence of current endocarditis as well as hyponatremia and electrolyte imbalance Sepsis due to MSSA bacteremia/endocarditis in IVDA so far negative from 11/08/22 - end date potentially 12/19/22 if stays negative continue dapto (cefazolin allergy, non compliant with vanc troughs/ difficult to achieve steady state), weekly cpk ID following acute hyponatremia mild acute on chronic metabolic acidosis bicarb chronically low VBG showing compensation oral bicarb opiate dependence addiction medicine following Continue Methadone alcohol dependence wiith withdrawal drinks 5 beers/nightly PHenobarbital protocol thiamine and folic acid supplement resolved DVT ppx: lovenox full code reason for continued hospitalization:needs safe dispo Time Spent With Patient Time: Total time managing care of this patient today ____ minutes. Quality Stroke Does the patient have a stroke diagnosis?: No VTE Prior VTE?: No VTE Risk Level:: Medical - moderate - high VTE Device Contraindication: Treatment Not Indicated VTE Drug Contraindication: N/A - Med Ordered
[2022-11-11] MEDS: Folic Acid 1 MG TABLET PO (09:13)
[2022-11-11] MEDS: Thiamine HCL 100 MG TABLET PO (09:13)
[2022-11-11] MEDS: Sodium Bicarbonate 650 MG TABLET PO ×2 (09:13→22:29)
[2022-11-11] MEDS: PHENobarbitaL 15 MG TABLET PO (09:13)
[2022-11-11] MEDS: 0.9 % Sodium Chloride Flush 3 ML SYRINGE IVFLUSH ×3 (09:14→22:30)
[2022-11-11] MEDS: methADONE HCl 20 MG/2 ML ORAL.CONC 45 MG PO (09:14)
--- NOTE | 2022-11-11 10:51 | PM.PNNEP ---
Subjective Subjective Date of Service: 11/11/22 Interval history: seen and examined no complaints Physical Exam Vital Signs: Vital Signs: Last Vital Signs Temp 98.4 F 11/11/22 07:11 Pulse 78 11/11/22 07:11 Resp 18 11/11/22 07:11 BP 129/82 11/11/22 07:11 Pulse Ox 94 11/11/22 07:11 O2 Del Method Room Air 11/11/22 07:11 O2 Flow Rate 4 11/09/22 23:48 BMI result Body Mass Index 28.4 Const: General: no acute distress HEENT: Head: Yes normocephalic and Yes atraumatic Neck: Neck: Yes supple Resp: Auscultation: clear to auscultation bilaterally Cardio: Heart sounds: S1 normal heart sound present, S2 normal heart sound present and Murmur heart sound present GI: Palpation (GI): Soft to palpation and nontender Extrem: General: Yes no pedal edema Objective Data Labs 11/07/22 08:18 11/09/22 10:42 Microbiology Microbiology Results: Microbiology 11/08/22 15:04 Blood - Venous Blood Culture - Preliminary No growth after 48 hours. 11/08/22 15:04 Blood - Venous Blood Culture - Preliminary No growth after 48 hours. 11/06/22 12:47 Blood - Venous Blood Culture - Final Staphylococcus aureus 11/06/22 12:47 Blood - Venous Blood Culture - Final Staphylococcus aureus 11/05/22 20:52 Blood - Venous Blood Culture - Final Staphylococcus aureus 11/05/22 20:52 Blood - Venous Blood Culture - Final Staphylococcus aureus 11/05/22 06:02 Blood - Venous Blood Culture - Final Staphylococcus aureus 11/04/22 22:59 Blood - Venous Blood Culture - Final Staphylococcus aureus 11/05/22 Unknown Urine clean catch - Urine fox top Urine Culture - Final 11/05/22 05:56 Blood - Venous Blood Culture - Final 11/05/22 05:56 Blood - Venous Blood Culture - Final Procedures Date of Service Date of Service: 11/11/22 Assessment & Plan Assessment and plan (1) Hyponatremia: Status: Acute (2) Metabolic acidosis: Status: Acute Plan euvolemic most likely hypotonic hyponatremia multifactorial: -poor solute excretion -excessive fluid intake low Uosm (157) and Natalya (< 20) not c/w SIADH REC c/w fluid restriction 1.5 L c/w sodium bicarbonate 650 mg bid follow electrolytes Time Spent With Patient Time: Total time managing care of this patient today ____ minutes. Progress Note: Quality Stroke Does the patient have a stroke diagnosis?: No
[2022-11-11] MEDS: DAPTOmycin 600 MG in 0.9 % Sodium Chloride 50 ML 124 MG IV (14:29)
[2022-11-11] MEDS: Acetaminophen 325 MG TABLET 650 MG PO (18:18)
[2022-11-11] MEDS: diphenhydrAMINE HCL 50 MG/ML VIAL IVPUSH (22:47)
[2022-11-12] MEDS: Ketorolac Tromethamine 30 MG/ML VIAL IVPUSH (02:02)
[2022-11-12 03:33] VITALS: BP 117/73; PULSE 69; RESP 18; TEMP 37; O2SAT 97
[2022-11-12 07:35] VITALS: BP 133/85; PULSE 76; RESP 18; TEMP 36.2; O2SAT 98
--- NOTE | 2022-11-12 07:58 | PM.PNNEP ---
Subjective Subjective Date of Service: 11/12/22 Interval history: seen and examined c/o generalized pain I am having a withdrawal Physical Exam Vital Signs: Vital Signs: Last Vital Signs Temp 97.1 F 11/12/22 07:35 Pulse 76 11/12/22 07:35 Resp 18 11/12/22 07:35 BP 133/85 11/12/22 07:35 Pulse Ox 98 11/12/22 07:35 O2 Del Method Room Air 11/12/22 07:35 O2 Flow Rate 4 11/09/22 23:48 BMI result Body Mass Index 28.4 Const: General: no acute distress HEENT: Head: Yes normocephalic and Yes atraumatic Neck: Neck: Yes supple Resp: Auscultation: clear to auscultation bilaterally Cardio: Heart sounds: S1 normal heart sound present, S2 normal heart sound present and Murmur heart sound present GI: Palpation (GI): Soft to palpation and nontender Extrem: General: Yes no pedal edema Objective Data Labs 11/07/22 08:18 11/09/22 10:42 Microbiology Microbiology Results: Microbiology 11/08/22 15:04 Blood - Venous Blood Culture - Preliminary No growth after 48 hours. 11/08/22 15:04 Blood - Venous Blood Culture - Preliminary No growth after 48 hours. 11/06/22 12:47 Blood - Venous Blood Culture - Final Staphylococcus aureus 11/06/22 12:47 Blood - Venous Blood Culture - Final Staphylococcus aureus 11/05/22 20:52 Blood - Venous Blood Culture - Final Staphylococcus aureus 11/05/22 20:52 Blood - Venous Blood Culture - Final Staphylococcus aureus 11/05/22 06:02 Blood - Venous Blood Culture - Final Staphylococcus aureus 11/04/22 22:59 Blood - Venous Blood Culture - Final Staphylococcus aureus 11/05/22 Unknown Urine clean catch - Urine fox top Urine Culture - Final 11/05/22 05:56 Blood - Venous Blood Culture - Final 11/05/22 05:56 Blood - Venous Blood Culture - Final Procedures Date of Service Date of Service: 11/12/22 Assessment & Plan Assessment and plan (1) Hyponatremia: Status: Acute (2) Metabolic acidosis: Status: Acute Plan Sna stable euvolemic most likely hypotonic hyponatremia multifactorial: -poor solute excretion -excessive fluid intake low Uosm (157) and Natalya (< 20) not c/w SIADH REC c/w fluid restriction 1.5 L c/w sodium bicarbonate 650 mg bid follow electrolytes Time Spent With Patient Time: Total time managing care of this patient today ____ minutes. Progress Note: Quality Stroke Does the patient have a stroke diagnosis?: No
[2022-11-12] MEDS: methADONE HCl 20 MG/2 ML ORAL.CONC 45 MG PO (08:11)
[2022-11-12] MEDS: Sodium Bicarbonate 650 MG TABLET PO ×2 (08:12→20:27)
[2022-11-12] MEDS: Folic Acid 1 MG TABLET PO (08:12)
[2022-11-12] MEDS: Thiamine HCL 100 MG TABLET PO (08:12)
[2022-11-12] MEDS: 0.9 % Sodium Chloride Flush 3 ML SYRINGE IVFLUSH ×2 (08:13→20:31)
--- NOTE | 2022-11-12 08:40 | P.PNIM_ITS ---
Subjective Subjective Date of Service: 11/12/22 Interval History: seen and examined c/o generalized pain I am having a withdrawal Review of Systems 10 points ROS negative except for pertinent in HPI Constitutional Constitutional: Reports as per HPI Physical Exam Vital Signs: Vital Signs: Last Vital Signs Temp 97.1 F 11/12/22 07:35 Pulse 76 11/12/22 07:35 Resp 18 11/12/22 07:35 BP 133/85 11/12/22 07:35 Pulse Ox 98 11/12/22 07:35 O2 Del Method Room Air 11/12/22 07:35 O2 Flow Rate 4 11/09/22 23:48 BMI result Body Mass Index 28.4 Const: Other: Constitutional : Awake, interactive, not in distress Neck : Normal inspection, Supple Cardiovascular : RRR, no JVP, no lower extremity edema, fine systolic murmur over right ventricle Respiratory : fair bilateral air entry, no crackles, wheezes or rhonchi Gastrointestinal: soft, lax, Normal bowel sounds, Non tender Skin : Warm, Dry Neurological : Alert & oriented x3, No focal deficit General: cooperative and no acute distress Orientation/consciousness: patient oriented x3 HEENT: Head: Yes normal to inspection, Yes normocephalic and Yes atraumatic Face and sinus: Yes normal facial exam Mouth: Normal oral and palatal mucosa present Teeth and gingiva: dentition normal Eyes: General: appearance normal, both eyes and all related structures Pupils: Equal, round and reactive pupils present Neck: Neck: Yes supple Resp: Effort & Inspection: normal respiratory effort Auscultation: clear to auscultation bilaterally Cardio: Other: positive for murmur best heard in the left 2nd intercostal region Rate: regular rate Rhythm: regular rhythm Heart sounds: S1 normal heart sound present, S2 normal heart sound present and Murmur heart sound present GI: Palpation (GI): Soft to palpation and nontender Auscultation: normal bowel sounds : General: Yes no CVA tenderness Back/Spine/Pelvis: Back: no CVA tenderness Skin: Other: some scabs on skin area General skin exam: no rashes or lesions noted Neuro: General: patient oriented x3 and moves all extremities Cranial nerves: Yes Equal, round and reactive pupils present Cognition (Neuro): normal cognition Extrem: General: Yes normal to inspection and Yes no pedal edema Psych: Appearance: grossly normal Objective Data Active Medications Acetaminophen (Acetaminophen 325 Mg Tablet) 650 mg PO Q6H PRN PRN Reason: Pain, Mild (Pain Scale 1-3) Last Admin: 11/11/22 18:18 Dose: 650 mg Documented By: ADWOA Al Hydroxide/Mg Hydroxide (Magnesium Hydrox/Alum Hydrox 30 Ml Oral.Susp) 30 ml PO Q6H PRN PRN Reason: Heart burn Docusate Sodium (Docusate Sodium 100 Mg Capsule) 100 mg PO DAILY PRN PRN Reason: Constipation Last Admin: 11/09/22 20:14 Dose: 100 mg Documented By: MIMI Enoxaparin Sodium (Enoxaparin Sodium 40 Mg/0.4 Ml Syringe) 40 mg SUBCUT Q24H [facility] Last Admin: 11/11/22 22:31 Dose: Not Given Documented By: CEDRIC Non-Admin Reason: Patient Refused Folic Acid (Folic Acid 1 Mg Tablet) 1 mg PO DAILY [facility] Last Admin: 11/12/22 08:12 Dose: 1 mg Documented By: CARMEN Guaifenesin/Dextromethorphan (Guaifenesin Dm 200/20/10 Ml 10 Ml Syrup) 10 ml PO TID [facility] Last Admin: 11/12/22 08:12 Dose: Not Given Documented By: CARMEN Non-Admin Reason: Patient Refused Daptomycin 600 mg/ Sodium (Chloride) 62 mls @ 124 mls/hr IV Q24H [facility] Last Infusion: 11/11/22 15:09 Dose: 0 mls/hr Documented By: ADWOA Methadone HCl (Methadone Hcl 20 Mg/2 Ml Oral.Conc) 45 mg PO DAILY [facility] Last Admin: 11/12/22 08:11 Dose: 45 mg Documented By: CARMEN Omeprazole (Omeprazole 40 Mg Capsule.Dr) 40 mg PO DAILY@0630 [facility] Last Admin: 11/12/22 06:30 Dose: Not Given Documented By: CEDRIC Non-Admin Reason: Patient Refused Ondansetron HCl (Ondansetron Hcl 4 Mg/2 Ml Vial) 4 mg IVPUSH Q8H PRN PRN Reason: Nausea and Vomiting Pharmacy Consult (Consult Rx Etoh Phenob Im/Po) 1 each MISCELLANE ONCE PRN; Protocol PRN Reason: Consult order Sodium Bicarbonate (Sodium Bicarbonate 650 Mg Tablet) 650 mg PO BID [facility] Last Admin: 11/12/22 08:12 Dose: 650 mg Documented By: CARMEN Sodium Chloride (0.9 % Sodium Chloride Flush 3 Ml Syringe) 3 ml IVFLUSH QSHIFT [facility] Last Admin: 11/12/22 08:13 Dose: 3 ml Documented By: CARMEN Thiamine HCl (Thiamine Hcl 100 Mg Tablet) 100 mg PO DAILY [facility] Last Admin: 11/12/22 08:12 Dose: 100 mg Documented By: CARMEN Labs 11/07/22 08:18 11/09/22 10:42 Assessment and Plan (1) Sepsis: Status: Acute (2) Endocarditis: Status: Acute (3) Metabolic acidosis: Status: Acute (4) Hyponatremia: Status: Acute Plan 27F PMH polysubstance dependence, endocarditis presented with body aches found to have fever, tachycardia, evidence of current endocarditis as well as hyponatremia and electrolyte imbalance Sepsis due to MSSA bacteremia/endocarditis in IVDA so far negative from 11/08/22 - end date potentially 12/19/22 if stays negative continue dapto (cefazolin allergy, non compliant with vanc troughs/ difficult to achieve steady state), weekly cpk ID following acute hyponatremia mild acute on chronic metabolic acidosis bicarb chronically low VBG showing compensation oral bicarb opiate dependence with withdrawl addiction medicine following Continue Methadone alcohol dependence wiith withdrawal drinks 5 beers/nightly PHenobarbital protocol thiamine and folic acid supplement resolved DVT ppx: lovenox full code reason for continued hospitalization:needs safe dispo Time Spent With Patient Time: Total time managing care of this patient today ____ minutes. Quality Stroke Does the patient have a stroke diagnosis?: No VTE Prior VTE?: No VTE Risk Level:: Medical - moderate - high VTE Device Contraindication: Treatment Not Indicated VTE Drug Contraindication: N/A - Med Ordered
--- NOTE | 2022-11-12 10:14 | MHC.CM.PN ---
Per ROUNDS discussion, Patient does not want to go to SNF for IV ABT, nor does she feel ready to go home. CM will follow.
[2022-11-12 11:39] VITALS: BP 131/82; PULSE 80; RESP 18; TEMP 36.9; O2SAT 95
[2022-11-12] MEDS: DAPTOmycin 600 MG in 0.9 % Sodium Chloride 50 ML 124 MG IV (14:38)
[2022-11-12 15:27] VITALS: BP 137/84; PULSE 84; RESP 18; TEMP 36.7; O2SAT 93
[2022-11-12 19:26] VITALS: BP 126/94; PULSE 86; RESP 18; TEMP 37.1; O2SAT 98
[2022-11-12] MEDS: diphenhydrAMINE HCL 25 MG CAPSULE 50 MG PO (20:27)
[2022-11-13] VITALS: BP 133/56; PULSE 62; RESP 18; TEMP 36.8; O2SAT 93
[2022-11-13 03:51] VITALS: BP 148/76; PULSE 80; RESP 18; TEMP 36.2; O2SAT 98
--- NOTE | 2022-11-13 03:53 | PC.NURSE ---
Pt witnessed from VMTs grabbing a small packet from her belongings and sniffing it. RN made aware and in to see patient. Patient denied sniffing anything and agreed to have RN and security go through belongings. Upon looking further patient noted to have 2 empty packets in trash bag on the bedside table and 1 mixed in belongings along with drug paraphernalia. All disposed of with security. MD Melendez notified and made aware. Patient remains A&Ox4, was quiet but cooperative with search.
[2022-11-13 07:43] VITALS: BP 142/93; PULSE 87; RESP 18; TEMP 37.2; O2SAT 96
--- NOTE | 2022-11-13 08:15 | PM.PNNEP ---
Subjective Subjective Date of Service: 11/13/22 Interval history: seen and examined c/o pain Physical Exam Vital Signs: Vital Signs: Last Vital Signs Temp 98.9 F 11/13/22 07:43 Pulse 87 11/13/22 07:43 Resp 18 11/13/22 07:43 BP 142/93 H 11/13/22 07:43 Pulse Ox 96 11/13/22 07:43 O2 Del Method Room Air 11/13/22 07:43 O2 Flow Rate 4 11/09/22 23:48 BMI result Body Mass Index 28.4 Const: General: no acute distress HEENT: Head: Yes normocephalic and Yes atraumatic Neck: Neck: Yes supple Resp: Auscultation: clear to auscultation bilaterally Cardio: Heart sounds: S1 normal heart sound present, S2 normal heart sound present and Murmur heart sound present GI: Palpation (GI): Soft to palpation and nontender Extrem: General: Yes no pedal edema Objective Data Labs 11/07/22 08:18 11/09/22 10:42 Microbiology Microbiology Results: Microbiology 11/08/22 15:04 Blood - Venous Blood Culture - Preliminary No growth after 48 hours. 11/08/22 15:04 Blood - Venous Blood Culture - Preliminary No growth after 48 hours. 11/06/22 12:47 Blood - Venous Blood Culture - Final Staphylococcus aureus 11/06/22 12:47 Blood - Venous Blood Culture - Final Staphylococcus aureus 11/05/22 20:52 Blood - Venous Blood Culture - Final Staphylococcus aureus 11/05/22 20:52 Blood - Venous Blood Culture - Final Staphylococcus aureus 11/05/22 06:02 Blood - Venous Blood Culture - Final Staphylococcus aureus 11/04/22 22:59 Blood - Venous Blood Culture - Final Staphylococcus aureus 11/05/22 Unknown Urine clean catch - Urine fox top Urine Culture - Final 11/05/22 05:56 Blood - Venous Blood Culture - Final 11/05/22 05:56 Blood - Venous Blood Culture - Final Procedures Date of Service Date of Service: 11/13/22 Assessment & Plan Assessment and plan (1) Hyponatremia: Status: Acute (2) Metabolic acidosis: Status: Acute Plan euvolemic most likely hypotonic hyponatremia multifactorial: -poor solute excretion -excessive fluid intake low Uosm (157) and Natalya (< 20) not c/w SIADH REC fluid restriction 1.5 L c/w sodium bicarbonate 650 mg bid follow electrolytes Time Spent With Patient Time: Total time managing care of this patient today ____ minutes. Progress Note: Quality Stroke Does the patient have a stroke diagnosis?: No
[2022-11-13] MEDS: Sodium Bicarbonate 650 MG TABLET PO ×2 (08:41→21:00)
[2022-11-13] MEDS: Folic Acid 1 MG TABLET PO (08:41)
[2022-11-13] MEDS: Thiamine HCL 100 MG TABLET PO (08:41)
[2022-11-13] MEDS: 0.9 % Sodium Chloride Flush 3 ML SYRINGE IVFLUSH ×2 (08:42→21:00)
[2022-11-13] MEDS: methADONE HCl 20 MG/2 ML ORAL.CONC 45 MG PO (08:42)
--- NOTE | 2022-11-13 09:54 | HO.PM.IMPN ---
Subjective Subjective Date of Service: 11/13/22 Interval History: no complaints Physical Exam Vital Signs: Vital Signs: Last Vital Signs Temp 98.9 F 11/13/22 07:43 Pulse 87 11/13/22 07:43 Resp 18 11/13/22 07:43 BP 142/93 H 11/13/22 07:43 Pulse Ox 96 11/13/22 07:43 O2 Del Method Room Air 11/13/22 07:43 O2 Flow Rate 4 11/09/22 23:48 BMI result Body Mass Index 28.4 Const: General: no acute distress HEENT: Head: Yes normocephalic and Yes atraumatic Neck: Neck: Yes supple Resp: Auscultation: clear to auscultation bilaterally Cardio: Heart sounds: S1 normal heart sound present, S2 normal heart sound present and Murmur heart sound present GI: Palpation (GI): Soft to palpation and nontender Extrem: General: Yes no pedal edema Objective Data Active Medications Acetaminophen (Acetaminophen 325 Mg Tablet) 650 mg PO Q6H PRN PRN Reason: Pain, Mild (Pain Scale 1-3) Last Admin: 11/11/22 18:18 Dose: 650 mg Documented By: ADWOA Al Hydroxide/Mg Hydroxide (Magnesium Hydrox/Alum Hydrox 30 Ml Oral.Susp) 30 ml PO Q6H PRN PRN Reason: Heart burn Diphenhydramine HCl (Diphenhydramine Hcl 25 Mg Capsule) 50 mg PO BEDTIME PRN PRN Reason: anxiety/restlessness Last Admin: 11/12/22 20:27 Dose: 50 mg Documented By: ASHISH Docusate Sodium (Docusate Sodium 100 Mg Capsule) 100 mg PO DAILY PRN PRN Reason: Constipation Last Admin: 11/09/22 20:14 Dose: 100 mg Documented By: MIMI Enoxaparin Sodium (Enoxaparin Sodium 40 Mg/0.4 Ml Syringe) 40 mg SUBCUT Q24H [facility] Last Admin: 11/12/22 20:16 Dose: Not Given Documented By: ASHISH Non-Admin Reason: Patient Refused Folic Acid (Folic Acid 1 Mg Tablet) 1 mg PO DAILY [facility] Last Admin: 11/13/22 08:41 Dose: 1 mg Documented By: CARLOS Guaifenesin/Dextromethorphan (Guaifenesin Dm 200/20/10 Ml 10 Ml Syrup) 10 ml PO TID [facility] Last Admin: 11/13/22 08:42 Dose: Not Given Documented By: CARLOS Non-Admin Reason: Patient Refused Comments: education provided Daptomycin 600 mg/ Sodium (Chloride) 62 mls @ 124 mls/hr IV Q24H [facility] Last Infusion: 11/12/22 15:15 Dose: 0 mls/hr Documented By: CARMEN Methadone HCl (Methadone Hcl 20 Mg/2 Ml Oral.Conc) 45 mg PO DAILY [facility] Last Admin: 11/13/22 08:42 Dose: 45 mg Documented By: CARLOS Omeprazole (Omeprazole 40 Mg Capsule.Dr) 40 mg PO DAILY@0630 [facility] Last Admin: 11/13/22 06:04 Dose: Not Given Documented By: ASHISH Non-Admin Reason: Patient Refused Ondansetron HCl (Ondansetron Hcl 4 Mg/2 Ml Vial) 4 mg IVPUSH Q8H PRN PRN Reason: Nausea and Vomiting Pharmacy Consult (Consult Rx Etoh Phenob Im/Po) 1 each MISCELLANE ONCE PRN; Protocol PRN Reason: Consult order Sodium Bicarbonate (Sodium Bicarbonate 650 Mg Tablet) 650 mg PO BID [facility] Last Admin: 11/13/22 08:41 Dose: 650 mg Documented By: CARLOS Sodium Chloride (0.9 % Sodium Chloride Flush 3 Ml Syringe) 3 ml IVFLUSH QSHIFT [facility] Last Admin: 11/13/22 08:42 Dose: 3 ml Documented By: CARLOS Thiamine HCl (Thiamine Hcl 100 Mg Tablet) 100 mg PO DAILY [facility] Last Admin: 11/13/22 08:41 Dose: 100 mg Documented By: CARLOS Labs 11/07/22 08:18 11/09/22 10:42 Assessment and Plan (1) Sepsis: Status: Acute (2) Endocarditis: Status: Acute (3) Metabolic acidosis: Status: Acute (4) Hyponatremia: Status: Acute Plan 27F PMH polysubstance dependence, endocarditis presented with body aches found to have fever, tachycardia, evidence of current endocarditis as well as hyponatremia and electrolyte imbalance Sepsis due to MSSA bacteremia/endocarditis in IVDA so far negative from 11/08/22 - end date potentially 12/19/22 if stays negative continue dapto (cefazolin allergy, non compliant with vanc troughs/ difficult to achieve steady state), weekly cpk ID following acute hyponatremia mild acute on chronic metabolic acidosis bicarb chronically low VBG showing compensation oral bicarb opiate dependence with withdrawl addiction medicine following Continue Methadone alcohol dependence wiith withdrawal drinks 5 beers/nightly PHenobarbital protocol thiamine and folic acid supplement resolved DVT ppx: lovenox full code reason for continued hospitalization:needs safe dispo Time Spent With Patient Time: Total time managing care of this patient today ____ minutes. Quality Stroke Does the patient have a stroke diagnosis?: No VTE Prior VTE?: No VTE Risk Level:: Medical - moderate - high VTE Device Contraindication: Treatment Not Indicated VTE Drug Contraindication: N/A - Med Ordered
[2022-11-13 11:34] VITALS: BP 159/90; PULSE 82; RESP 18; TEMP 37.3; O2SAT 95
[2022-11-13] MEDS: DAPTOmycin 600 MG in 0.9 % Sodium Chloride 50 ML 124 MG IV (12:52)
--- NOTE | 2022-11-13 13:05 | MHC.RECOVRN ---
Met with pt in 462 to follow up regarding methadone titration. Pt laying in bed, eyes closed, wakes to voice. Pt denies having more substances in her room, discussed the risks associated with using substances while in the hospital, educated pt on goals of methadone titration. Pt reports methadone wears off in the evening, has difficulty sleeping, becomes restless and diaphoretic. Pt reports lack of appetite since being here. Pt requesting dose increase. Discussed with provider, plan to add 5 mg methadone daily in the evening. Will continue to follow.
[2022-11-13] MEDS: methADONE HCl 20 MG/2 ML ORAL.CONC 5 MG PO (13:56)
[2022-11-13] MEDS: Acetaminophen 325 MG TABLET 650 MG PO (20:59)
[2022-11-13] MEDS: diphenhydrAMINE HCL 25 MG CAPSULE 50 MG PO (20:59)
[2022-11-13 23:25] VITALS: BP 142/98; PULSE 70; RESP 20; TEMP 36.3; O2SAT 94
[2022-11-14 07:32] VITALS: BP 138/79; PULSE 79; RESP 18; TEMP 36.4; O2SAT 96
--- NOTE | 2022-11-14 07:47 | PM.PNNEP ---
Subjective Subjective Date of Service: 11/14/22 Interval history: seen and examined no complaints this morning Physical Exam Vital Signs: Vital Signs: Last Vital Signs Temp 97.6 F 11/14/22 07:32 Pulse 79 11/14/22 07:32 Resp 18 11/14/22 07:32 BP 138/79 11/14/22 07:32 Pulse Ox 96 11/14/22 07:32 O2 Del Method Room Air 11/14/22 07:32 O2 Flow Rate 4 11/09/22 23:48 BMI result Body Mass Index 28.4 Const: General: no acute distress HEENT: Head: Yes normocephalic and Yes atraumatic Neck: Neck: Yes supple Resp: Auscultation: clear to auscultation bilaterally Cardio: Heart sounds: S1 normal heart sound present, S2 normal heart sound present and Murmur heart sound present GI: Palpation (GI): Soft to palpation and nontender Extrem: General: Yes no pedal edema Objective Data Labs 11/07/22 08:18 11/09/22 10:42 Microbiology Microbiology Results: Microbiology 11/08/22 15:04 Blood - Venous Blood Culture - Final No growth after 5 days. 11/08/22 15:04 Blood - Venous Blood Culture - Final No growth after 5 days. 11/06/22 12:47 Blood - Venous Blood Culture - Final Staphylococcus aureus 11/06/22 12:47 Blood - Venous Blood Culture - Final Staphylococcus aureus 11/05/22 20:52 Blood - Venous Blood Culture - Final Staphylococcus aureus 11/05/22 20:52 Blood - Venous Blood Culture - Final Staphylococcus aureus 11/05/22 06:02 Blood - Venous Blood Culture - Final Staphylococcus aureus 11/04/22 22:59 Blood - Venous Blood Culture - Final Staphylococcus aureus 11/05/22 Unknown Urine clean catch - Urine fox top Urine Culture - Final 11/05/22 05:56 Blood - Venous Blood Culture - Final 11/05/22 05:56 Blood - Venous Blood Culture - Final Procedures Date of Service Date of Service: 11/14/22 Assessment & Plan Assessment and plan (1) Hyponatremia: Status: Acute (2) Metabolic acidosis: Status: Acute Plan euvolemic most likely hypotonic hyponatremia multifactorial: -poor solute excretion -excessive fluid intake low Uosm (157) and Natalya (< 20) not c/w SIADH REC continue fluid restriction 1.5 L c/w sodium bicarbonate 650 mg bid follow electrolytes Time Spent With Patient Time: Total time managing care of this patient today ____ minutes. Progress Note: Quality Stroke Does the patient have a stroke diagnosis?: No
[2022-11-14] MEDS: Folic Acid 1 MG TABLET PO (08:12)
[2022-11-14] MEDS: methADONE HCl 20 MG/2 ML ORAL.CONC 45 MG PO (08:12)
[2022-11-14] MEDS: Sodium Bicarbonate 650 MG TABLET PO ×2 (08:12→20:34)
[2022-11-14] MEDS: Thiamine HCL 100 MG TABLET PO (08:12)
[2022-11-14] MEDS: 0.9 % Sodium Chloride Flush 3 ML SYRINGE IVFLUSH ×2 (08:16→20:34)
--- NOTE | 2022-11-14 09:04 | HO.PM.IMPN ---
Subjective Subjective Date of Service: 11/14/22 Interval History: no complaints Physical Exam Vital Signs: Vital Signs: Last Vital Signs Temp 97.6 F 11/14/22 07:32 Pulse 79 11/14/22 07:32 Resp 18 11/14/22 07:32 BP 138/79 11/14/22 07:32 Pulse Ox 96 11/14/22 07:32 O2 Del Method Room Air 11/14/22 07:32 O2 Flow Rate 4 11/09/22 23:48 BMI result Body Mass Index 28.4 Const: General: no acute distress HEENT: Head: Yes normocephalic and Yes atraumatic Neck: Neck: Yes supple Resp: Auscultation: clear to auscultation bilaterally Cardio: Heart sounds: S1 normal heart sound present, S2 normal heart sound present and Murmur heart sound present GI: Palpation (GI): Soft to palpation and nontender Extrem: General: Yes no pedal edema Objective Data Active Medications Acetaminophen (Acetaminophen 325 Mg Tablet) 650 mg PO Q6H PRN PRN Reason: Pain, Mild (Pain Scale 1-3) Last Admin: 11/13/22 20:59 Dose: 650 mg Documented By: ASHISH Al Hydroxide/Mg Hydroxide (Magnesium Hydrox/Alum Hydrox 30 Ml Oral.Susp) 30 ml PO Q6H PRN PRN Reason: Heart burn Diphenhydramine HCl (Diphenhydramine Hcl 25 Mg Capsule) 50 mg PO BEDTIME PRN PRN Reason: anxiety/restlessness Last Admin: 11/13/22 20:59 Dose: 50 mg Documented By: ASHISH Docusate Sodium (Docusate Sodium 100 Mg Capsule) 100 mg PO DAILY PRN PRN Reason: Constipation Last Admin: 11/09/22 20:14 Dose: 100 mg Documented By: MIMI Enoxaparin Sodium (Enoxaparin Sodium 40 Mg/0.4 Ml Syringe) 40 mg SUBCUT Q24H [facility] Last Admin: 11/13/22 19:22 Dose: Not Given Documented By: ASHISH Non-Admin Reason: Patient Refused Folic Acid (Folic Acid 1 Mg Tablet) 1 mg PO DAILY [facility] Last Admin: 11/14/22 08:12 Dose: 1 mg Documented By: CARMEN Guaifenesin/Dextromethorphan (Guaifenesin Dm 200/20/10 Ml 10 Ml Syrup) 10 ml PO TID [facility] Last Admin: 11/14/22 08:15 Dose: Not Given Documented By: CARMEN Non-Admin Reason: Patient Refused Daptomycin 600 mg/ Sodium (Chloride) 62 mls @ 124 mls/hr IV Q24H [facility] Last Infusion: 11/13/22 13:30 Dose: 0 mls/hr Documented By: CARLOS Methadone HCl (Methadone Hcl 20 Mg/2 Ml Oral.Conc) 45 mg PO DAILY [facility] Last Admin: 11/14/22 08:12 Dose: 45 mg Documented By: CARMEN Methadone HCl (Methadone Hcl 20 Mg/2 Ml Oral.Conc) 5 mg PO Q24H [facility] Last Admin: 11/13/22 13:56 Dose: 5 mg Documented By: CARLOS Omeprazole (Omeprazole 40 Mg Capsule.Dr) 40 mg PO DAILY@0630 [facility] Last Admin: 11/14/22 05:05 Dose: Not Given Documented By: ASHISH Non-Admin Reason: Patient Refused Ondansetron HCl (Ondansetron Hcl 4 Mg/2 Ml Vial) 4 mg IVPUSH Q8H PRN PRN Reason: Nausea and Vomiting Pharmacy Consult (Consult Rx Etoh Phenob Im/Po) 1 each MISCELLANE ONCE PRN; Protocol PRN Reason: Consult order Sodium Bicarbonate (Sodium Bicarbonate 650 Mg Tablet) 650 mg PO BID [facility] Last Admin: 11/14/22 08:12 Dose: 650 mg Documented By: CARMEN Sodium Chloride (0.9 % Sodium Chloride Flush 3 Ml Syringe) 3 ml IVFLUSH QSHIFT [facility] Last Admin: 11/14/22 08:16 Dose: 3 ml Documented By: CARMEN Thiamine HCl (Thiamine Hcl 100 Mg Tablet) 100 mg PO DAILY [facility] Last Admin: 11/14/22 08:12 Dose: 100 mg Documented By: CARMEN Labs 11/07/22 08:18 11/09/22 10:42 Microbiology Microbiology Results: Microbiology 11/08/22 15:04 Blood Culture - Final Blood - Venous No growth after 5 days. 11/08/22 15:04 Blood Culture - Final Blood - Venous No growth after 5 days. Assessment and Plan (1) Sepsis: Status: Acute (2) Endocarditis: Status: Acute (3) Metabolic acidosis: Status: Acute (4) Hyponatremia: Status: Acute Plan 27F PMH polysubstance dependence, endocarditis presented with body aches found to have fever, tachycardia, evidence of current endocarditis as well as hyponatremia and electrolyte imbalance Sepsis due to MSSA bacteremia/endocarditis in IVDA so far negative from 11/08/22 - end date potentially 12/19/22 if stays negative continue dapto (cefazolin allergy, non compliant with vanc troughs/ difficult to achieve steady state), weekly cpk ID following acute hyponatremia mild acute on chronic metabolic acidosis bicarb chronically low VBG showing compensation oral bicarb opiate dependence with withdrawl addiction medicine following Continue Methadone alcohol dependence wiith withdrawal drinks 5 beers/nightly PHenobarbital protocol thiamine and folic acid supplement resolved DVT ppx: lovenox full code reason for continued hospitalization:needs safe dispo Time Spent With Patient Time: Total time managing care of this patient today ____ minutes. Quality Stroke Does the patient have a stroke diagnosis?: No VTE Prior VTE?: No VTE Risk Level:: Medical - moderate - high VTE Device Contraindication: Treatment Not Indicated VTE Drug Contraindication: N/A - Med Ordered
[2022-11-14 11:30] VITALS: BP 133/84; PULSE 77; RESP 18; TEMP 36.8; O2SAT 95
[2022-11-14] MEDS: DAPTOmycin 600 MG in 0.9 % Sodium Chloride 50 ML 124 MG IV (13:56)
[2022-11-14] MEDS: methADONE HCl 20 MG/2 ML ORAL.CONC 5 MG PO (13:56)
[2022-11-14 15:24] VITALS: BP 141/94; PULSE 79; RESP 22; TEMP 36.1; O2SAT 95
--- NOTE | 2022-11-14 15:58 | MHC.RECOVRN ---
Brief check in with pt. Pt sleeping, wakes to voice. No new concerns today. Reports methadone still wears off in the evening however is able to rest and is comfortable throughout the day. Will continue to follow.
[2022-11-14 19:33] VITALS: BP 133/92; PULSE 82; RESP 22; TEMP 36.1; O2SAT 94
[2022-11-14] MEDS: diphenhydrAMINE HCL 25 MG CAPSULE 50 MG PO (21:26)
[2022-11-14 23:38] VITALS: BP 144/102; PULSE 71; RESP 18; TEMP 36.6; O2SAT 96
[2022-11-15 03:25] VITALS: BP 152/93; PULSE 86; RESP 20; TEMP 37; O2SAT 97
--- NOTE | 2022-11-15 05:30 | PC.NURSE ---
CARE ASSUMED 23:15..AWAKE..ALERT..ORIENTED X3..RESPIRATIONS EASY...OOB TO BR WITH STEADY GAIT TO VOID...NSR...NAPPING INTERMITTANTLY OVERNIGHT..CONTINUES TO REFUSE SCHEDULED PRILOSEC
[2022-11-15 07:45] VITALS: BP 133/86; PULSE 81; RESP 18; TEMP 36.6; O2SAT 96
[2022-11-15] MEDS: Omeprazole 40 MG CAPSULE.DR PO (08:10)
[2022-11-15] MEDS: Folic Acid 1 MG TABLET PO (08:10)
[2022-11-15] MEDS: Sodium Bicarbonate 650 MG TABLET PO ×2 (08:10→19:39)
[2022-11-15] MEDS: Thiamine HCL 100 MG TABLET PO (08:10)
[2022-11-15] MEDS: methADONE HCl 20 MG/2 ML ORAL.CONC 45 MG PO (08:14)
[2022-11-15] MEDS: 0.9 % Sodium Chloride Flush 3 ML SYRINGE IVFLUSH ×3 (08:21→19:41)
--- NOTE | 2022-11-15 08:30 | P.PNIM_ITS ---
Subjective Subjective Date of Service: 11/15/22 Interval History: no compoaints Physical Exam Vital Signs: Vital Signs: Last Vital Signs Temp 97.8 F 11/15/22 07:45 Pulse 81 11/15/22 07:45 Resp 18 11/15/22 07:45 BP 133/86 11/15/22 07:45 Pulse Ox 96 11/15/22 07:45 O2 Del Method Room Air 11/15/22 07:45 O2 Flow Rate 4 11/09/22 23:48 BMI result Body Mass Index 28.4 Const: General: no acute distress HEENT: Head: Yes normocephalic and Yes atraumatic Neck: Neck: Yes supple Resp: Auscultation: clear to auscultation bilaterally Cardio: Heart sounds: S1 normal heart sound present, S2 normal heart sound present and Murmur heart sound present GI: Palpation (GI): Soft to palpation and nontender Extrem: General: Yes no pedal edema Objective Data Active Medications Acetaminophen (Acetaminophen 325 Mg Tablet) 650 mg PO Q6H PRN PRN Reason: Pain, Mild (Pain Scale 1-3) Last Admin: 11/13/22 20:59 Dose: 650 mg Documented By: ASHISH Al Hydroxide/Mg Hydroxide (Magnesium Hydrox/Alum Hydrox 30 Ml Oral.Susp) 30 ml PO Q6H PRN PRN Reason: Heart burn Diphenhydramine HCl (Diphenhydramine Hcl 25 Mg Capsule) 50 mg PO BEDTIME PRN PRN Reason: anxiety/restlessness Last Admin: 11/14/22 21:26 Dose: 50 mg Documented By: CEDRIC Docusate Sodium (Docusate Sodium 100 Mg Capsule) 100 mg PO DAILY PRN PRN Reason: Constipation Last Admin: 11/09/22 20:14 Dose: 100 mg Documented By: MIMI Enoxaparin Sodium (Enoxaparin Sodium 40 Mg/0.4 Ml Syringe) 40 mg SUBCUT Q24H [facility] Last Admin: 11/14/22 20:43 Dose: Not Given Documented By: CEDRIC Non-Admin Reason: Patient Refused Folic Acid (Folic Acid 1 Mg Tablet) 1 mg PO DAILY [facility] Last Admin: 11/15/22 08:10 Dose: 1 mg Documented By: YUNG Guaifenesin/Dextromethorphan (Guaifenesin Dm 200/20/10 Ml 10 Ml Syrup) 10 ml PO TID [facility] Last Admin: 11/14/22 20:43 Dose: Not Given Documented By: CEDRIC Non-Admin Reason: Patient Refused Daptomycin 600 mg/ Sodium (Chloride) 62 mls @ 124 mls/hr IV Q24H [facility] Last Infusion: 11/14/22 14:32 Dose: 0 mls/hr Documented By: CARMEN Methadone HCl (Methadone Hcl 20 Mg/2 Ml Oral.Conc) 45 mg PO DAILY [facility] Last Admin: 11/15/22 08:14 Dose: 45 mg Documented By: YUNG Methadone HCl (Methadone Hcl 20 Mg/2 Ml Oral.Conc) 5 mg PO Q24H [facility] Last Admin: 11/14/22 13:56 Dose: 5 mg Documented By: CARMEN Omeprazole (Omeprazole 40 Mg Capsule.Dr) 40 mg PO DAILY@0630 [facility] Last Admin: 11/15/22 08:10 Dose: 40 mg Documented By: YUNG Ondansetron HCl (Ondansetron Hcl 4 Mg/2 Ml Vial) 4 mg IVPUSH Q8H PRN PRN Reason: Nausea and Vomiting Pharmacy Consult (Consult Rx Etoh Phenob Im/Po) 1 each MISCELLANE ONCE PRN; Protocol PRN Reason: Consult order Sodium Bicarbonate (Sodium Bicarbonate 650 Mg Tablet) 650 mg PO BID [facility] Last Admin: 11/15/22 08:10 Dose: 650 mg Documented By: YUNG Sodium Chloride (0.9 % Sodium Chloride Flush 3 Ml Syringe) 3 ml IVFLUSH QSHIFT [facility] Last Admin: 11/15/22 08:21 Dose: 3 ml Documented By: YUNG Thiamine HCl (Thiamine Hcl 100 Mg Tablet) 100 mg PO DAILY [facility] Last Admin: 11/15/22 08:10 Dose: 100 mg Documented By: YUNG Labs 11/07/22 08:18 11/09/22 10:42 Assessment and Plan (1) Sepsis: Status: Acute (2) Endocarditis: Status: Acute (3) Metabolic acidosis: Status: Acute (4) Hyponatremia: Status: Acute Plan 27F PMH polysubstance dependence, endocarditis presented with body aches found to have fever, tachycardia, evidence of current endocarditis as well as hyponatremia and electrolyte imbalance Sepsis due to MSSA bacteremia/endocarditis in IVDA so far negative from 11/08/22 - end date potentially 12/19/22 if stays negative continue dapto (cefazolin allergy, non compliant with vanc troughs/ difficult to achieve steady state), weekly cpk (patient refusing) ID following acute hyponatremia mild acute on chronic metabolic acidosis bicarb chronically low VBG showing compensation oral bicarb opiate dependence with withdrawl addiction medicine following Continue Methadone alcohol dependence wiith withdrawal drinks 5 beers/nightly PHenobarbital protocol thiamine and folic acid supplement resolved DVT ppx: lovenox full code reason for continued hospitalization:needs safe dispo Time Spent With Patient Time: Total time managing care of this patient today ____ minutes. Quality Stroke Does the patient have a stroke diagnosis?: No VTE Prior VTE?: No VTE Risk Level:: Medical - moderate - high VTE Device Contraindication: Treatment Not Indicated VTE Drug Contraindication: N/A - Med Ordered
--- NOTE | 2022-11-15 10:07 | PM.PNNEP ---
Subjective Subjective Date of Service: 11/15/22 Interval history: no compoaints Sleepy Physical Exam Vital Signs: Vital Signs: Last Vital Signs Temp 97.8 F 11/15/22 07:45 Pulse 81 11/15/22 07:45 Resp 18 11/15/22 07:45 BP 133/86 11/15/22 07:45 Pulse Ox 96 11/15/22 07:45 O2 Del Method Room Air 11/15/22 07:45 O2 Flow Rate 4 11/09/22 23:48 BMI result Body Mass Index 28.4 Const: General: no acute distress HEENT: Head: Yes normocephalic and Yes atraumatic Neck: Neck: Yes supple Resp: Auscultation: clear to auscultation bilaterally Cardio: Heart sounds: S1 normal heart sound present, S2 normal heart sound present and Murmur heart sound present GI: Palpation (GI): Soft to palpation and nontender Extrem: General: Yes no pedal edema Objective Data Labs 11/07/22 08:18 11/09/22 10:42 Microbiology Microbiology Results: Microbiology 11/08/22 15:04 Blood - Venous Blood Culture - Final No growth after 5 days. 11/08/22 15:04 Blood - Venous Blood Culture - Final No growth after 5 days. 11/06/22 12:47 Blood - Venous Blood Culture - Final Staphylococcus aureus 11/06/22 12:47 Blood - Venous Blood Culture - Final Staphylococcus aureus 11/05/22 20:52 Blood - Venous Blood Culture - Final Staphylococcus aureus 11/05/22 20:52 Blood - Venous Blood Culture - Final Staphylococcus aureus 11/05/22 06:02 Blood - Venous Blood Culture - Final Staphylococcus aureus 11/04/22 22:59 Blood - Venous Blood Culture - Final Staphylococcus aureus 11/05/22 Unknown Urine clean catch - Urine fox top Urine Culture - Final 11/05/22 05:56 Blood - Venous Blood Culture - Final 11/05/22 05:56 Blood - Venous Blood Culture - Final Procedures Date of Service Date of Service: 11/15/22 Assessment & Plan Assessment and plan (1) Acute kidney injury: Status: Acute (2) Hyponatremia: Status: Acute Plan euvolemic most likely hypotonic hyponatremia multifactorial: -poor solute excretion -excessive fluid intake low Uosm (157) and Natalya (< 20) not c/w SIADH REC continue fluid restriction 1.5 L c/w sodium bicarbonate 650 mg bid follow electrolytes No New changes Time Spent With Patient Time: Total time managing care of this patient today ____ minutes. Progress Note: Quality Stroke Does the patient have a stroke diagnosis?: No
--- NOTE | 2022-11-15 10:35 | MHC.CM.PN ---
Per ROUNDS discussion, Patient has mentioned leaving AMA; CM will follow.
[2022-11-15 11:18] VITALS: BP 137/92; PULSE 80; RESP 16; TEMP 37.6; O2SAT 94
[2022-11-15] MEDS: DAPTOmycin 600 MG in 0.9 % Sodium Chloride 50 ML 124 MG IV (13:14)
[2022-11-15] MEDS: methADONE HCl 20 MG/2 ML ORAL.CONC 5 MG PO (13:14)
--- NOTE | 2022-11-15 14:19 | MHC.RECOVRN ---
Met with pt in 462 to follow up and provide support. Pt laying in bed, awake, alert, easily engages in conversation, appears comfortable. Pt informs t/w she is discharging tomorrow after her 1PM antibiotic. Pt plans to go to her friend's house in [place] where she had been prior to presentation. Pt is all set to present to [facility] on Tuesday with last dose letter. Pt states I just want to go home, unable to report other reason for leaving. Discussed increase in methadone, pt declines. Pt aware of risks of discharging and importance of IV antibiotics. Discussed harm reduction related to substance use. Pt denies questions or concerns at this time. RN, provider, and CM aware.
--- NOTE | 2022-11-15 14:23 | MHC.CM.PN ---
Per clinical study manager, Patient is set to go to [facility] for her Methadone on 11/17/2022.
[2022-11-15 15:47] VITALS: BP 134/84; PULSE 87; RESP 22; TEMP 37.2; O2SAT 92
[2022-11-15 19:35] VITALS: BP 122/68; PULSE 82; RESP 20; TEMP 36.5; O2SAT 96
[2022-11-15] MEDS: Acetaminophen 325 MG TABLET 650 MG PO (19:40)
[2022-11-15] MEDS: diphenhydrAMINE HCL 25 MG CAPSULE 50 MG PO (22:37)
[2022-11-15 23:52] VITALS: BP 137/86; PULSE 78; RESP 15; TEMP 36.3; O2SAT 94
[2022-11-16 03:42] VITALS: BP 155/98; PULSE 80; RESP 16; TEMP 37.1; O2SAT 98
[2022-11-16 07:15] VITALS: BP 137/84; PULSE 84; RESP 20; TEMP 36.4; O2SAT 93
--- NOTE | 2022-11-16 08:57 | PM.DS ---
DS: Providers Provider Date of Service: 11/16/22 Date of admission: 11/04/22 23:59 Primary care physician: Unknown Physician Consults: 11/04/22 23:42 Addiction Medicine Routine Consulting Provider: Addiction [facility] Reason for consultation: IVDU, Cocaine Has provider been notified: No 11/05/22 06:45 Consult to Nephrology Routine Consulting Provider: [facility] Reason for consultation: hyponatremia Has provider been notified: No 11/05/22 13:10 Consult to Infectious Diseases Routine Consulting Provider: [facility] [place] Infectious Disease Reason for consultation: suspected IE DS: Diagnosis Discharge Diagnosis (1) Acute kidney injury: Status: Acute (2) Hyponatremia: Status: Acute DS: Summary Hospital Course Hospital Course: from initial hpi: 27-year-old active IV drug user uses dope and Coke ? as well as history of infective endocarditis of tricuspid valve in 2021 comes into the hospital with complaints of? generalized body ache, headache, and feeling febrile and not too well.? Patient otherwise denies any chest pain, no shortness of breath, no palpitations, no abdominal pain nausea or vomiting, no diarrhea constipation, no urinary symptoms and extremity edema.? On arrival to the ED patient hemodynamically stable slightly elevated heart rate of 111, blood pressure 104/54 .? Few hours later while in the ED patient did develop a fever of 103 Labs are significant for WBC count of 8.0, BUN of 25, total bili of 1.6, UA positive for leukocyte Estrace WBC, urine drug screen positive for opioids fentanyl and cocaine, ?chest x-ray shows no new focal airspace opacity ?patient started on IV antibiotics and will be admitted for further management hospital course: Patient was admitted for sepsis due to MSSA bacteremia/endocarditis in IVDA, was treated with iv vanc due to pcn/cephalosporin allergy, then transitioned to dapto due to poor compliance with trough monitoring. cultures cleared 11/08/22, plan was to continue iv antibiotics until 12/19/22, however, patient has decided to leave against medical advice. she was able to demonstrate understanding of the risks including . she will be given 2 weeks of po doxy. for acute hyponatremia she was put on fluid restriction and resolved. for acute on chronic meatbolic acidosis she was given bicarb and resolved. for opiate dependence with withdrawal she improved with methadone. for etoh dependence with withdrawal she improved with phenobarb. Time Spent with Patient Time attestation: Total time managing care of this patient today ____ minutes. Discharge coordination time: Greater than 30 minutes Quality: Safe Use of Opioids Does Pt have an Active Cancer Diagnosis on the Problem List?: No Quality: Stroke Does the patient have a stroke diagnosis?: No Physical Exam Vital Signs: Vital Signs: Last Vital Signs Temp 97.6 F 11/16/22 07:15 Pulse 84 11/16/22 07:15 Resp 20 11/16/22 07:15 BP 137/84 11/16/22 07:15 Pulse Ox 93 11/16/22 07:15 O2 Del Method Room Air 11/16/22 07:15 O2 Flow Rate 4 11/09/22 23:48 BMI result Body Mass Index 28.4 Const: General: no acute distress HEENT: Head: Yes normocephalic and Yes atraumatic Neck: Neck: Yes supple Resp: Auscultation: clear to auscultation bilaterally Cardio: Heart sounds: S1 normal heart sound present, S2 normal heart sound present and Murmur heart sound present GI: Palpation (GI): Soft to palpation and nontender Extrem: General: Yes no pedal edema DS: Data Data Completed and Pending Completed studies during hospitalization [Text1]: Procedures Drainage of Left Pleural Cavity with Drainage Device, Percutaneous Approach (03/31/21) Drainage of Right Pleural Cavity with Drainage Device, Percutaneous Approach (03/31/21) Insertion of Endotracheal Airway into Trachea, Via Natural or Artificial Opening (01/20/22) Insertion of Infusion Device into Inferior Vena Cava, Percutaneous Approach (01/20/22) Insertion of Infusion Device into Right Atrium, Percutaneous Approach (03/31/21) Introduction of Other Thrombolytic into Central Vein, Percutaneous Approach (03/31/21) Introduction of Vasopressor into Central Vein, Percutaneous Approach (01/20/22) Respiratory Ventilation, 24-96 Consecutive Hours (01/20/22) Transfusion of Nonautologous Red Blood Cells into Peripheral Vein, Percutaneous Approach (03/31/21) Discharge Plan Discharge Anticipated Discharge Date/Time: 11/16/22 08:54 Patient Disposition: Left Against Medical Advice Discharge Diagnosis: MSSA endocarditis Referrals: Physician,Unknown J [Primary Care Provider] - 1 Week Discharge Medications: New doxycycline hyclate 100 mg capsule 100 mg PO BID Qty: 28 0RF No Action No Known Home Meds Discharge Orders: Discharge Order (Routine); Ordered 11/16/22 Ordered By: Chase Greco Care Plan Goals: recovery Health Concerns: ivda, mssa bacteremia Plan of Treatment: cannot treat properly without iv abx, will send 2 weeks of doxy to pharmacy Assessment: see above
[2022-11-16] MEDS: Folic Acid 1 MG TABLET PO (09:12)
[2022-11-16] MEDS: Thiamine HCL 100 MG TABLET PO (09:12)
[2022-11-16] MEDS: methADONE HCl 20 MG/2 ML ORAL.CONC 45 MG PO (09:12)
[2022-11-16] MEDS: 0.9 % Sodium Chloride Flush 3 ML SYRINGE IVFLUSH (09:13)
--- NOTE | 2022-11-16 09:27 | MHC.CM.PN ---
Pt discharging AMA.
--- NOTE | 2022-11-16 12:11 | MHC.RECOVRN ---
This curriculum writer met w/ patient, pt plans to d/c today. Last dose letter given to pt, pt requesting ride upon d/c to [address] [place] [address] JARETH Tyson aware.
[2022-11-16] MEDS: DAPTOmycin 600 MG in 0.9 % Sodium Chloride 50 ML 124 MG IV (13:09)
[2022-11-16] MEDS: methADONE HCl 20 MG/2 ML ORAL.CONC 5 MG PO (13:10)
== END 2022-11-16 14:30 | disposition left against medical advice (07) | DRG 720 ==
LOC: HO.ED 11-05 00:10 → HO.EDOVER 11-05 00:26 → HO.IMC 11-05 15:33
PROVIDERS: Internal Medicine Nephrology; Student in an Organized Health Care Education/Training Program; Admitting Provider Internal Medicine; Emergency Provider Student in an Organized Health Care Education/Training Program; Visit Provider Internal Medicine
DX: A41.01 Sepsis due to Methicillin susceptible Staphylococcus aureus (principal); I33.9 Acute and subacute endocarditis, unspecified; E87.21 Acute metabolic acidosis; F10.239 Alcohol dependence with withdrawal, unspecified; F11.20 Opioid dependence, uncomplicated; E87.22 Chronic metabolic acidosis; I07.1 Rheumatic tricuspid insufficiency; E87.1 Hypo-osmolality and hyponatremia; Z20.822 Contact with and (suspected) exposure to COVID-19; Z59.01 Sheltered homelessness; Z87.891 Personal history of nicotine dependence; Z88.1 Allergy status to other antibiotic agents
CPT/HCPCS: 0241U; 36415; 71045; 80048; 80053; 80202; 80307; 81001; 82565; 82803; 83605; 83930; 83935; 84300; 84560; 85025; 85027; 87040; 87077; 87086; 87147; 87186; 87205; 93005; 93306; 99285; J0878; J1200; J1885; J2543; J2560; J3370; Q9957

== ENCOUNTER → 2022-11-04 22:28 | Outpatient (BNV) | payer MEDICAID, SELFPAY | PROVIDERS: Admitting Provider Internal Medicine; Emergency Provider Student in an Organized Health Care Education/Training Program; Visit Provider Internal Medicine Cardiovascular Disease | DX: R00.0 Tachycardia, unspecified (principal); R94.31 Abnormal electrocardiogram [ECG] [EKG] | CPT/HCPCS: 93010 ==

== ENCOUNTER 2022-11-04 23:59 | Outpatient (BNV) | payer MEDICAID, SELFPAY | END 2022-11-05 07:00 | PROVIDERS: Admitting Provider Internal Medicine; Emergency Provider Student in an Organized Health Care Education/Training Program; Visit Provider Internal Medicine Cardiovascular Disease | DX: I36.1 Nonrheumatic tricuspid (valve) insufficiency (principal) | CPT/HCPCS: 93306 ==

== ENCOUNTER → 2022-11-04 23:59 | Outpatient (BNV) | payer MEDICAID, SELFPAY | PROVIDERS: Admitting Provider Internal Medicine; Emergency Provider Student in an Organized Health Care Education/Training Program; Visit Provider Internal Medicine | DX: N17.9 Acute kidney failure, unspecified (principal); E87.1 Hypo-osmolality and hyponatremia | CPT/HCPCS: 99223; 99231; 99232; 99233; 99239; 99499 ==

== ENCOUNTER → 2022-11-04 23:59 | Outpatient (BNV) | payer OTHER, SELFPAY | PROVIDERS: Admitting Provider Internal Medicine; Emergency Provider Student in an Organized Health Care Education/Training Program; Visit Provider Nurse Practitioner Psychiatric/Mental Health | DX: F11.20 Opioid dependence, uncomplicated (principal) | CPT/HCPCS: 99231; 99232 ==

== ENCOUNTER → 2022-11-04 23:59 | Outpatient (BNV) | payer MEDICAID, SELFPAY | PROVIDERS: Admitting Provider Internal Medicine; Emergency Provider Student in an Organized Health Care Education/Training Program; Visit Provider Internal Medicine | DX: I07.1 Rheumatic tricuspid insufficiency (principal); B99.9 Unspecified infectious disease; R78.81 Bacteremia; B95.8 Unspecified staphylococcus as the cause of diseases classified elsewhere | CPT/HCPCS: 99222 ==

== ENCOUNTER 2024-03-07 23:41 | Inpatient (IN) | payer MEDICAID, SELFPAY ==
--- NOTE | ~2024-03-07 | CT_ITS ---
EXAMINATION: CT FOREARM WITH CONTRAST, RIGHT CLINICAL INFORMATION: Right arm infection. COMPARISON: X-ray of the right forearm March 08, 2024. TECHNIQUE: CT scan of the right forearm was performed with contrast. Contrast dose: 85 mL of Omnipaque 350. This CT examination was performed using dose optimization techniques as appropriate, variously including the following: *Automated exposure control *Adjustment of mA and/or kV according to patient size (this includes techniques or standardized protocols for targeted exams where dose is matched to indication/reason for exam; i.e. extremities or head) *Use of iterative reconstruction technique DLP: 556 mGy-cm FINDINGS: There is skin and subcutaneous irregularity along the posterior ulnar aspect of the proximal to middle one-third portion of the forearm. There is heterogeneous density and thickened appearing subcutaneous soft tissues extending to the underlying muscle fascia. Possible involvement of the muscles just deep to the fascia in the region of the anconeus muscle and extensor muscles. This area of abnormality extends over approximately 9 cm craniocaudal and 5.5 cm transverse. There is no soft tissue gas. There is additional generalized skin thickening proximal and distal to the area of ulceration. Neurovascular structures unremarkable. Remaining muscles and tendons normal. Prominent lymph node measuring up to 1 cm in the antecubital fossa likely reactive. Bones and joints: Normal. No effusion. Bursa: Normal. CT/CT forearm RT w IV con IMPRESSION: 1. Skin and subcutaneous irregularity along the posterior ulnar aspect of the proximal to middle one-third portion of the forearm compatible with a large area of ulceration. 2. There is heterogeneous density in the thickened appearing subcutaneous soft tissues extending to the underlying muscle fascia. Likely cellulitis. Possible involvement of the muscles in the region of the anconeus muscle and extensor muscles. Cannot exclude irregular subcutaneous abscess deep to the area of ulceration. There is no soft tissue gas. 3. Findings are most compatible with cellulitis. Electronically signed by: Ming Rubin MD 03/08/2024 04:51 PM MARLENE
--- NOTE | ~2024-03-07 | XR_ITS ---
EXAMINATION: XR CHEST CLINICAL INFORMATION: Wheezing. Patient noted to have complex thoracic history. COMPARISON: 11/04/2022. 01/21/2022. CT chest examination 04/20/2021. TECHNIQUE: 2 views of the chest were obtained. FINDINGS: There is mild cardiac enlargement. There is enlargement of the main pulmonary arteries, with rapid distal tapering suggesting pulmonary hypertension. Normal aortic and mediastinal contours. There is patchy opacity in the right lower lobe distribution suspicious for pneumonia. There are mild foci of scarring in the inferior right upper lobe, and bilateral perihilar regions. There are no effusions and there is no pneumothorax. There is no bony or soft tissue abnormality. XR/XR chest 2V IMPRESSION: 1. Patchy right lower lobe pneumonia suspected. 2. Foci of scarring in the bilateral perihilar regions and inferior right upper lobe. 3. Mild cardiomegaly. 4. Apparent enlargement of the main pulmonary arteries with rapid distal tapering, findings suggesting underlying pulmonary hypertension. Electronically signed by: Simone Hernandez MD 03/08/2024 08:47 AM [facility]
--- NOTE | ~2024-03-07 | XR_ITS ---
EXAMINATION: XR FOREARM, RIGHT CLINICAL INFORMATION: Wound, pain. COMPARISON: 06/16/2021. TECHNIQUE: AP and lateral views of the right forearm were obtained. FINDINGS: Normal bony mineralization. No fracture, dislocation, or suspicious bone lesion. Foci of soft tissue subcutaneous emphysema present in the arm subjacent to a large ulcerated appearing region of dorsomedial forearm soft tissue irregularity consistent with wound. Suspect soft tissue gas in the dorsal forearm and circumferentially in the distal right arm. Cannot assess well for the presence of a joint effusion in the elbow due to technical limitation. Grossly none large seen. XR/XR forearm RT 2V IMPRESSION: 1. Extensive soft tissue emphysema throughout the forearm and distal right arm, majority subjacent to a large ulcerated appearing wound on the dorsomedial forearm. Diagnosis of necrotizing fasciitis/gangrene should be considered in the appropriate clinical context. 2. No fracture or focal bone lesion. No gross evidence of osteomyelitis radiographically. 3. No definite elbow joint effusion. Electronically signed by: Simone Hernandez MD 03/08/2024 08:54 AM [facility]
[2024-03-07 23:50] VITALS: BP 115/75; BP 125/80; PULSE 97; RESP 16; TEMP 36.6; O2SAT 100; O2SAT 92; BMI 25.4
[2024-03-08] VITALS (8 sets, daily range): BP systolic 109–120; BP diastolic 68–82; PULSE 63–86; RESP 12–18; TEMP 36.3–36.9; O2SAT 94–98; BMI 31.4
--- NOTE | 2024-03-08 02:07 | PC.NURSE ---
pt is homeless has many packages that fill a wheelchair. pt admits to being a iv drug user, Security called and stated unless she has a IV in place they can not go thur her belongings or lock them up.
--- NOTE | 2024-03-08 02:08 | PC.NURSE ---
pt curtain remains open and wheelchair is at the door inside pt room. pt watching tv, calm and cooperative. pt comes for right forarm wound not healing for one year.
--- NOTE | 2024-03-08 04:02 | MHC.EDTECH ---
0400 rounding done ,vitals taken ,Patient resting with eyes closed .call kim within Pt reach .
--- NOTE | 2024-03-08 04:25 | PC.NURSE ---
pt sleeping skin pink warm and dry no s/s of distress.
--- NOTE | 2024-03-08 06:05 | MHC.EDTECH ---
0600 rounding done ,vitals taken ,Patient up to bathroom ,void and back to bed ,fresh water given .
--- NOTE | 2024-03-08 06:40 | ED.GENADULT ---
HPI - General Adult General Chief complaint: General Medical Stated complaint: lower back pain , right arm abscess and redness Time Seen by Provider: 03/08/24 06:40 Source: patient and RN notes reviewed Mode of arrival: ambulatory Limitations: no limitations History of Present Illness ED Provider: Sabrina Neal PA-C HPI narrative: This is a 28-year-old female, with a history of active substance abuse on methadone and infective endocarditis who presents emergency department with complaints of concerns that her chronic right arm wound is becoming more infected and believes she needs to be admitted. She also states that she has a history of endocarditis and is concerned that she will need this be addressed. Patient states she uses IV drugs, reporting about 20 dollars of cocaine intravenously per day as well as half a bundle of heroin per day. She states that she has this wound on her right forearm where she injects which she has had for a long time however reports that over the last several weeks she has noticed increased pain, redness and warmth to this region. She denies any recent fevers or chills. Patient does elicit that over the last several months, she has not been feeling well, she has had body aches, nausea, and shortness of breath. She also states that she has had a cough with yellow-colored sputum which she reports she has had for awhile She states that she has not been on antibiotics recently. No vomiting or diarrhea. She is a poor historian, and is difficult to get a history from in regards to her current presentation. complaint: Wound Onset (ago): week(s) Severity: moderate Pain Consistency: constant Relieving factors: none Exacerbating factors: none Associated symptoms: denies other symptoms Treatments prior to arrival: none Related Data Home Medications ?Medication ?Instructions ?Recorded ?Confirmed methadone 10 mg/mL oral 85 mg PO DAILY 03/08/24 03/08/24 concentrate (Methadone Intensol) Allergies Allergy/AdvReac Type Severity Reaction Status Date / Time cefazolin Allergy Rash Verified 03/07/24 23:53 Review of Systems Review of Systems: Yes all other systems are reviewed and are negative Constitutional: Constitutional: Reports as per [facility] Past Medical History Attestation statement: The following information was validated with the patient. Medical History Bacteremia Sepsis History of endocarditis Wound of right upper extremity Fever Elevated blood pressure reading Septic embolism Cocaine use disorder, severe, dependence Opioid use disorder, severe, dependence Bacteremia MELITON (acute kidney injury) Substance abuse Family History Family History Mother No problems noted. Father No problems noted. Social History Social History Household Members: Friend(s) Housing: Apartment Housing Other:: homeless but states staying with friends Do you presently have visiting nurse or other home services: No Unable to assess alcohol history related to: Refusing to respond Alcohol intake: current Alcohol intake frequency: 0-2 drinks per day Alcohol type: beer Comment: Patient refused to where red Fall risk socks. Patient Tobacco Use Status: Former Tobacco user Tobacco use type: Cigarette Smoked in Last 30 Days: Yes Use of substances other than those prescribed or required for medical reasons: Yes Substance Use Type: Crack/Cocaine and Heroin Substance Use Frequency: Daily Last Used Substance: Just Prior to Admission Any prior treatment program specific to substance use: Yes Advance Directives: No Do you have a plan to hurt others: No Plan Patient : No service: No Current occupational status: unemployed Physical Exam ED Vital Signs: Vital Signs - 24 hr 03/07/24 23:50 03/08/24 02:33 03/08/24 04:01 Temperature 97.9 F 97.9 F 98.4 F Pulse Rate 97 77 68 Respiratory Rate 16 16 16 Blood Pressure 125/80 109/82 118/68 Pulse Oximetry 92 95 97 Oxygen Delivery Method Room Air Room Air Room Air 03/08/24 05:59 03/08/24 07:31 03/08/24 10:00 Temperature 97.4 F 98.4 F Pulse Rate 68 86 Respiratory Rate 16 12 18 Blood Pressure 119/79 119/71 Pulse Oximetry 98 98 Oxygen Delivery Method Room Air Room Air 03/08/24 10:39 Temperature 98.1 F Pulse Rate 78 Respiratory Rate 18 Blood Pressure 119/71 Pulse Oximetry 94 Oxygen Delivery Method Room Air BMI result Body Mass Index 25.4 Const General: cooperative, comfortable and no acute distress Orientation/consciousness: patient oriented x3 Limitations: no limitations HENMT Head: Yes normal to inspection, Yes normocephalic and Yes atraumatic Ears: hearing grossly normal bilaterally General nose exam: Normal external nose present Face and sinus: Yes normal facial exam Mouth: Normal oral and palatal mucosa present, oropharynx normal and moist mucous membranes Throat: Yes posterior oropharynx normal Eyes General: appearance normal, both eyes and all related structures Eyelids: Yes eyelids normal Conjunctivae: conjunctivae normal Sclerae: sclerae normal Pupils: Equal, round and reactive pupils present EOM: EOMs intact bilaterally Neck Neck: Yes normal visual inspection, Yes full ROM and Yes no lymphadenopathy Lymphatic: no lymphadenopathy noted Chest Chest palpation & inspection: normal inspection of the chest Resp Other: Inspiratory and expiratory wheezes noted throughout all lung richardson with crackles heard at the bilateral lower lung bases. Effort & Inspection: normal respiratory effort and able to speak in complete sentences Cardio Rate: regular rate Rhythm: regular rhythm Heart sounds: S1 normal heart sound present and S2 normal heart sound present GI Inspection: Yes normal to inspection Skin Other: Right lateral forearm, with extensive chronic wound, with surrounding erythema, and warmth. Strong radial pulse. She is able to flex and extend at the elbow. Tender to palpation in this region. No drainage to the area. Neuro General: patient oriented x3 and moves all extremities Cranial nerves: Yes Equal, round and reactive pupils present Extrem Other: No lower extremity swelling, no pitting edema noted. No calf tenderness. General: Yes normal to inspection Left upper extremity: normal to inspection Right lower extremity: normal to inspection Left lower extremity: normal to inspection Course Reevaluation(s) Reevaluation #1: Chemistry finally returns, she is a difficult stick and was drawn multiple times. Labs returned, chemistry revealing no significant electrolyte derangement. CPK unremarkable, ESR elevated at 34, CRP elevated at 0.73. Chest x-ray returns revealing right lower lobe pneumonia. There is also evidence of cardiomegaly. Also possible evidence of pulmonary hypertension. She remained stable, afebrile. At this time, patient needs to be admitted for pneumonia, as well as cellulitis. I did order a CT scan of the forearm for further diagnostic and overall workup of this wound. Awaiting the results. Transfer of care initiated Time: 13:14 Medications Administered Generic Name Dose Route Start Last Admin Trade Name Freq PRN Reason Stop Dose Admin Enoxaparin Sodium 40 mg 03/08/24 16:00 03/08/24 16:34 Enoxaparin Sodium 40 Mg/0.4 Ml Syringe SUBCUT Not Given Q24H CORAZON Sodium Chloride 3 ml 03/08/24 16:00 03/08/24 16:11 0.9 % Sodium Chloride Flush 3 Ml Syringe IVFLUSH Not Given QSHIFT [facility] Discontinued Medications Generic Name Dose Route Start Last Admin Trade Name Paresh PRN Reason Stop Dose Admin Albuterol Sulfate 2.5 mg/ 5 mg 03/08/24 07:22 03/08/24 07:27 Albuterol Sulfate 2.5 mg INHALE 03/08/24 07:23 5 mg ONCE ONE Administration Albuterol Sulfate 2.5 mg 03/08/24 11:07 03/08/24 11:09 Albuterol Sulfate (0.083%) 2.5 Mg/3 Ml Vial.Neb INHALE 03/08/24 11:08 2.5 mg ONCE ONE Administration Vancomycin HCl 1,500 mg/ 500 mls @ 333.333 mls/hr 03/08/24 06:51 03/08/24 11:50 Sodium Chloride IV 03/08/24 08:20 Infused ONCE ONE Infusion Piperacillin Sod/Tazobactam 50 mls @ 100 mls/hr 03/08/24 06:51 03/08/24 10:05 Sod 3.375 gm/ Sodium Chloride IV 03/08/24 07:20 Infused ONCE ONE Infusion Methadone HCl 85 mg 03/08/24 08:50 03/08/24 10:02 Methadone Hcl 20 Mg/2 Ml Oral.Conc PO 03/08/24 08:51 85 mg ONCE ONE Administration Medical Decision Making Medical Decision Making MDM Narrative: This is a 28-year-old female who presents emergency department with complaints of worsening right arm wound from substance use. On arrival, vital signs within normal limits. She is speaking full sentences under no acute distress. Right forearm with chronic wound noted, with surrounding erythema and warmth, concerning for acute on chronic cellulitis/infection. She also has inspiratory and expiratory wheezes noted throughout all lung richardson with crackles heard at the lower lung bases. She does report increased shortness for breath therefore chest x-ray was ordered. Plan: Labs, EKG, chest x-ray, forearm x-ray, IV antibiotics, plus or minus admission Differential Diagnosis Differential Diagnoses: The differential diagnosis associated with the presentation includes Cellulitis, wound dehiscence, chronic wound, substance use, necrotizing fasciitis, compartment syndrome-unlikely Admission/Observation Consideration of admission/observation: Escalation of care including admission/observation considered Given worsening appearance of wound, likely would need IV antibiotics. Also due to history of endocarditis, when likely benefit from hospital admission Lab Data MDM Lab Attestation statement: I reviewed the patient's lab results. She has no leukocytosis, chemistry revealing no significant derangement. H&H within normal limits. Elevated ESR and CRP. See course comment for further details. 03/08/24 07:55 03/08/24 12:04 Labs: Lab Results 03/08/24 03/08/24 Range/Units 07:55 12:04 WBC 7.1 (4.8-10.8) X10*3/uL RBC 4.92 D (4.20-5.50) X10*6/uL Hgb 13.1 D (12.0-16.0) g/dl Hct 41.5 D (37.0-47.0) % MCV 84.3 (80.0-98.0) fL MCH 26.6 L (27.0-33.0) pg MCHC 31.6 (31.0-35.0) g/dl RDW 15.8 (11.0-16.0) % Plt Count 170 D (160-400) X10*3/uL MPV 9.3 L (9.4-12.3) fL Immature Gran % (Auto) 0.6 H (0.0-0.4) % Neut % (Auto) 31.0 L (45-73) % Lymph % (Auto) 60.6 H (20-40) % [place] % (Auto) 5.3 (2-11) % Eos % (Auto) 1.8 (0-4) % Baso % (Auto) 0.7 (0-2) % Lymph # (Auto) 4.3 (1.2-4.9) X10*3/uL [place] # (Auto) 0.4 (0.1-1.2) X10*3/uL Eos # (Auto) 0.1 (0.0-0.4) X10*3/uL Baso # (Auto) 0.1 (0.0-0.2) X10*3/uL Abs Immat Gran (auto) 0.04 H (0.00-0.03) X10*3/uL Absolute Neuts (auto) 2.2 (2.0-8.3) x10*3/uL Absolute Nucleated RBC 0.000 (0.0-0.012) X10*3/uL Nucleated RBC % (auto) 0.0 (0.0-0.2) /100WBC Smear Tech's Comments VERIFIED ESR 34 H (0-20) MM/HR Sodium 135 (135-145) mmol/L Potassium 4.4 (3.3-5.1) mmol/L Chloride 104 (96-108) mmol/L Carbon Dioxide 24 (22-29) mmol/L Anion Gap 11 L (12-20) BUN 15 (9-16) mg/dL Creatinine 1.10 (0.5-1.4) mg/dL Estim Creat Clear Calc 62.2 Estimated GFR > 60 Random Glucose 103 (60-115) mg/dL Lactic Acid 1.2 (0.5-2.0) mmol/L Calcium 9.0 D (8.4-10.2) mg/dL Magnesium 2.0 (1.6-2.6) mg/dL Total Bilirubin 0.7 (0.0-1.0) mg/dL Direct Bilirubin 0.3 (0.0-0.5) mg/dL AST 28 (5-31) U/L ALT 12 (0-31) U/L Alkaline Phosphatase 113 (39-117) U/L Total Creatine Kinase < 7 L (26-140) U/L Troponin I High Sens < 2.7 (<3.5-17.0) ng/L C-Reactive Protein 0.73 H (< or = 0.50) mg/dL Total Protein 7.7 (6.5-8.0) g/dL Albumin 3.3 L (3.5-5.0) g/dL Lipase 15 (8-78) U/L Beta HCG, Quant < 2 mIU/mL Influenza Type A (PCR) NEGATIVE (Negative) Influenza Type B (PCR) NEGATIVE (Negative) RSV RNA Qual (PCR) NEGATIVE (Negative) SARS-CoV-2 RNA (RT-PCR) NEGATIVE (Negative) Radiology Impression Discussion of test interpretation with radiology: I have reviewed the radiologist's reading. Radiologist Impression: XR/XR forearm RT 2V IMPRESSION: 1. Extensive soft tissue emphysema throughout the forearm and distal right arm, majority subjacent to a large ulcerated appearing wound on the dorsomedial forearm. Diagnosis of necrotizing fasciitis/gangrene should be considered in the appropriate clinical context. 2. No fracture or focal bone lesion. No gross evidence of osteomyelitis radiographically. 3. No definite elbow joint effusion. Electronically signed by: Simone Hernandez MD 03/08/2024 08:54 AM EST RP Dictated By: Simone Hernandez MD XR/XR chest 2V IMPRESSION: 1. Patchy right lower lobe pneumonia suspected. 2. Foci of scarring in the bilateral perihilar regions and inferior right upper lobe. 3. Mild cardiomegaly. 4. Apparent enlargement of the main pulmonary arteries with rapid distal tapering, findings suggesting underlying pulmonary hypertension. Electronically signed by: Simone Hernandez MD 03/08/2024 08:47 AM EST RP Dictated By: Simone Hernandez MD External Record Review External record reviewed: Outside ED record Prescription Management I considered prescription management with: Antibiotic Chronic Conditions Patient?s care impacted by: Other (IVDA) Social Determinants Patient?s care significantly limited by Social Determinants of Health including: Alcoholism and drug addiction in family Critical Care Time Critical Care Time Critical Care Time: Yes Total Critical Care Time: 35 Attestation: I have personally provided critical care time exclusive of time spent on separately billable procedures. Time includes review of lab data, radiology results, discussion with consultants, and monitoring for potential decompensation. Intervention performed as documented. Discharge Plan Discharge Clinical Impression: Cellulitis of arm, right, Pneumonia Patient Disposition: Admitted As Inpatient
--- NOTE | 2024-03-08 06:42 | PC.NURSE ---
provider at bedside, pt has been sleeping thur the night,
--- NOTE | 2024-03-08 06:56 | ECG_ITS ---
Test Reason : dyspnea Blood Pressure : / mmHG Vent. Rate : 068 BPM Atrial Rate : 068 BPM P-R Int : 202 ms QRS Dur : 094 ms QT Int : 424 ms P-R-T Axes : 041 101 045 degrees QTc Int : 450 ms Normal sinus rhythm Rightward axis Low voltage QRS Borderline ECG When compared with ECG of 04-NOV-2022 22:33, Vent. rate has decreased BY 41 BPM Criteria for Septal infarct are no longer Present Referred By: Sabrina Neal Electronically Signed By:Noel Blackwood
[2024-03-08] MEDS: Albuterol Sulfate 2.5 MG, Albuterol Sulfate (0.083%) 2.5 MG 5 MG INHALE (07:27)
[2024-03-08 08:04] LABS: Basophils Absolute Auto 0.1 X10*3/uL (0.0-0.2); Basophils Percent Auto 0.7 % (0-2); Eosinophils Absolute Auto 0.1 X10*3/uL (0.0-0.4); Eosinophils Percent Auto 1.8 % (0-4); Hematocrit 41.5 % (37.0-47.0); Hemoglobin 13.1 g/dl (12.0-16.0); Imm Gran Abs Auto 0.04 X10*3/uL (0.00-0.03); Imm Gran Pct Auto 0.6 % (0.0-0.4); Lymphocytes Absolute Auto 4.3 X10*3/uL (1.2-4.9); Lymphocytes Percent Auto 60.6 % (20-40); MANUAL DIFF FLAG SCAN; Mean Corpuscular HGB Conc 31.6 g/dl (31.0-35.0); Mean Corpuscular Hemoglobin 26.6 pg (27.0-33.0); Mean Corpuscular Volume 84.3 fL (80.0-98.0); Mean Platelet Volume 9.3 fL (9.4-12.3); Monocytes Absolute Auto 0.4 X10*3/uL (0.1-1.2); Monocytes Percent Auto 5.3 % (2-11); Neutrophils Absolute Auto 2.2 x10*3/uL (2.0-8.3); Platelet Count 170 X10*3/uL (160-400); Red Blood Count 4.92 X10*6/uL (4.20-5.50); Red Cell Distribution Width 15.8 % (11.0-16.0); SCAN SMEAR FLAG 1; White Blood Count 7.1 X10*3/uL (4.8-10.8)
[2024-03-08 08:19] LABS: Lactic Acid 1.2 mmol/L (0.5-2.0)
[2024-03-08 08:46] LABS: Influenza A PCR NEGATIVE (Negative); Influenza B PCR NEGATIVE (Negative); Resp Syncy Virus RNA Qual PCR NEGATIVE (Negative); SARS COV2 PCR INHOUSE NEGATIVE (Negative)
[2024-03-08 08:47] LABS: SLIDE REVIEW VERIFIED
--- NOTE | 2024-03-08 09:06 | MHC.EDTECH ---
2 RNs attempted iv placement, 1 successful placement, labs drawn from line, lab called for a redraw, pt stated she did not want to get poked over and over, she then agreed to let us attempt again, process control technician dave attempted blood draw, unsuccessful, pt is a hard stick and refuses any more attempts
--- NOTE | 2024-03-08 09:06 | PC.NURSE ---
Pt difficult draw. Attempted to obtain second blood culture set, pt refusing more attempts. Per STEVEN Bennett, ok to hang abx.
[2024-03-08] MEDS: Piperacillin Sodium/Tazobactam 3.375 GM in 0.9 % Sodium Chloride 50 ML IV (09:11)
--- NOTE | 2024-03-08 09:11 | HE.PHANOTE ---
METHADONE Pt receives from [facility], . per Latoya at facility, pt last recieved 85mg on 03/06/24 @ 2332.
[2024-03-08] MEDS: vancomycin HCL 1,500 MG in 0.9 % Sodium Chloride 500 ML 333.33 MG IV (10:02)
[2024-03-08] MEDS: methADONE HCl 20 MG/2 ML ORAL.CONC 85 MG PO (10:02)
[2024-03-08] MEDS: Albuterol Sulfate (0.083%) 2.5 MG/3 ML VIAL.NEB INHALE (11:09)
--- NOTE | 2024-03-08 11:10 | PC.NURSE ---
Report taken from Christine Mosley RN
[2024-03-08 12:35] LABS: Alanine Aminotransferase 12 U/L (0-31); Albumin Level 3.3 g/dL (3.5-5.0); Alkaline Phosphatase 113 U/L (39-117); Anion Gap 11 (12-20); Aspartate Amino Transferase 28 U/L (5-31); Bilirubin Direct 0.3 mg/dL (0.0-0.5); Bilirubin Total 0.7 mg/dL (0.0-1.0); Blood Urea Nitrogen 15 mg/dL (9-16); C Reactive Protein 0.73 mg/dL (< or = 0.50); Carbon Dioxide 24 mmol/L (22-29); Chloride 104 mmol/L (96-108); Creatinine Clr Calc Pharmacy 62.2; Estimated Glomerular Filt Rate > 60; Glucose Random 103 mg/dL (60-115); HCG Quantitative < 2 mIU/mL; Lipase 15 U/L (8-78); Potassium 4.4 mmol/L (3.3-5.1); Sodium 135 mmol/L (135-145); Total Protein 7.7 g/dL (6.5-8.0); Troponin-I High Sensitivity < 2.7 ng/L (<3.5-17.0)
[2024-03-08 12:59] LABS: Erythrocyte Sedimentation Rate 34 MM/HR (0-20)
--- NOTE | 2024-03-08 14:58 | P.HPHOSP_ITS ---
History of Present Illness Date of Service: 03/08/24 Attending physician on admission: Meli Senior Chief Complaint: Right elbow wound Pt is a 28-year-old female with a PMH significant for?polysubstance use disorder (IV cocaine and heroin) and infective endocarditis of tricuspid valve in 2021 who presents to the ED with worsening chronic right elbow wound. Pt is a rather poor historian and states has had a chronic right forearm wound for the past year, though review of records indicates has had wound for at least the past four years. Pt uses open wound for IVDU, currently injecting $20 of cocaine and 1/2 bundle of heorin daily. It is not entirely clear what brought patient into the hospital today, but complains of worsening chronic wound that occasionally drains purulent discharge. No arm pain. Denies fever and chills. Patient also complains of worsening occasionally productive cough for the past month. Sputum occasionally brown/reddish. Also reports some nausea and vomiting last week, but none recently. No abdominal pain. Denies chest pain/pressure, palpitations. No significant shortness a breath or difficulty breathing. In the ED pt with 1 episode of elevated H are up to 97, vitals otherwise stable and WNL. Labs were significant for ESR mildly elevated at 34 and CRP mildly elevated at 0.73, otherwise grossly unremarkable and around baseline for patient. No leukocytosis. Stable H&H. No significant electrolyte abnormalities. Renal function baseline with creatinine 1.10. Hepatic function WNL. Tested negative for flu, RSV, COVID. CXR showed patchy right lower lobe pneumonia suspected, as well as likely underlying pulmonary hypertension. Right forearm x-ray showed extensive soft tissue emphysema throughout the forearm and distal right arm, but without fracture or focal bone lesion, evidence of osteomyelitis, or definite elbow joint effusion. CT of right forearm\ pending. EKG demonstrated normal sinus rhythm without evidence of ST elevations or depressions. Pt was treated with DuoNebs, albuterol, methadone, vancomycin, and Zosyn. Pt will be admitted to the hospital for treatment and further evaluation of cellulitis of chronic right elbow wound secondary to IVDU. Review of Systems 2 Review of Systems: Negative except for that which is stated in the HPI Yes all other systems are reviewed and are negative [facility] Medical History Bacteremia Sepsis History of endocarditis Wound of right upper extremity Fever Elevated blood pressure reading Septic embolism Cocaine use disorder, severe, dependence Opioid use disorder, severe, dependence Bacteremia MELITON (acute kidney injury) Substance abuse Family History Mother No problems noted. Father No problems noted. Social History Household Members: Friend(s) Housing: Apartment Housing Other:: homeless but states staying with friends Do you presently have visiting nurse or other home services: No Unable to assess alcohol history related to: Refusing to respond Alcohol intake: current Alcohol intake frequency: 0-2 drinks per day Alcohol type: beer Comment: Patient refused to where red Fall risk socks. Patient Tobacco Use Status: Former Tobacco user Tobacco use type: Cigarette Smoked in Last 30 Days: Yes Use of substances other than those prescribed or required for medical reasons: Yes Substance Use Type: Crack/Cocaine and Heroin Substance Use Frequency: Daily Last Used Substance: Just Prior to Admission Any prior treatment program specific to substance use: Yes Advance Directives: No Do you have a plan to hurt others: No Plan Patient : No service: No Current occupational status: unemployed Meds Allergies Allergy/AdvReac Type Severity Reaction Status Date / Time cefazolin Allergy Rash Verified 03/07/24 23:53 Home Medications ?Medication ?Instructions ?Recorded ?Confirmed ?Last Taken ?Type methadone 10 mg/mL oral 85 mg PO DAILY 03/08/24 03/08/24 03/06/24 07:16 History concentrate (Methadone Intensol) Physical Exam 2 Vital Signs and Narrative: Vital Signs: Last Vital Signs Temp 98.1 F 03/08/24 10:39 Pulse 78 03/08/24 10:39 Resp 18 03/08/24 10:39 BP 119/71 03/08/24 10:39 Pulse Ox 94 03/08/24 10:39 O2 Del Method Room Air 03/08/24 10:39 BMI result Body Mass Index 25.4 General: AOx3, somnolent but arousable, in no acute distress Resp: CTA bilaterally CVS: S1, S2, RRR GI: +BS, NT, no distention Skin: Warm, dry Neuro: Cranial nerves II-XII grossly intact bilaterally. Motor grossly intact bilaterally Extremities: No edema. Right posterior elbow with chronic open wound as pictured below Psych: Appropriate affect Results Labs 03/08/24 07:55 03/08/24 12:04 Labs: Laboratory Results - last 24 hr 03/08/24 03/08/24 07:55 12:04 MCV 84.3 MCH 26.6 L MCHC 31.6 RDW 15.8 Plt Count 170 D MPV 9.3 L Immature Gran % (Auto) 0.6 H Neut % (Auto) 31.0 L Lymph % (Auto) 60.6 H [place] % (Auto) 5.3 Eos % (Auto) 1.8 Baso % (Auto) 0.7 Lymph # (Auto) 4.3 [place] # (Auto) 0.4 Eos # (Auto) 0.1 Baso # (Auto) 0.1 Abs Immat Gran (auto) 0.04 H Absolute Neuts (auto) 2.2 Absolute Nucleated RBC 0.000 Nucleated RBC % (auto) 0.0 Smear Tech's Comments VERIFIED ESR 34 H Anion Gap 11 L Estim Creat Clear Calc 62.2 Estimated GFR > 60 Random Glucose 103 Lactic Acid 1.2 Calcium 9.0 D Magnesium 2.0 Total Bilirubin 0.7 Direct Bilirubin 0.3 AST 28 ALT 12 Alkaline Phosphatase 113 Total Creatine Kinase < 7 L Troponin I High Sens < 2.7 C-Reactive Protein 0.73 H Total Protein 7.7 Albumin 3.3 L Lipase 15 Beta HCG, Quant < 2 Influenza Type A (PCR) NEGATIVE Influenza Type B (PCR) NEGATIVE RSV RNA Qual (PCR) NEGATIVE SARS-CoV-2 RNA (RT-PCR) NEGATIVE Imaging Radiologist's Impressions: Impressions Chest X-Ray 03/08/24 06:50 IMPRESSION: 1. Patchy right lower lobe pneumonia suspected. 2. Foci of scarring in the bilateral perihilar regions and inferior right upper lobe. 3. Mild cardiomegaly. 4. Apparent enlargement of the main pulmonary arteries with rapid distal tapering, findings suggesting underlying pulmonary hypertension. Electronically signed by: Simone Hernandez MD 03/08/2024 08:47 AM [facility] Forearm X-Ray 03/08/24 08:00 IMPRESSION: 1. Extensive soft tissue emphysema throughout the forearm and distal right arm, majority subjacent to a large ulcerated appearing wound on the dorsomedial forearm. Diagnosis of necrotizing fasciitis/gangrene should be considered in the appropriate clinical context. 2. No fracture or focal bone lesion. No gross evidence of osteomyelitis radiographically. 3. No definite elbow joint effusion. Electronically signed by: Simone Hernandez MD 03/08/2024 08:54 AM EST Assessment and Plan (1) Cellulitis of arm, right: Status: Acute Plan Pt is a 28-year-old female with a PMH significant for?polysubstance use disorder (IV cocaine and heroin) and infective endocarditis of tricuspid valve in 2021 who presents to the ED with worsening chronic right elbow wound. Pt will be admitted to the hospital for treatment and further evaluation of cellulitis of chronic right elbow wound secondary to IVDU. 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 Worsening recently with purulent discharge No sepsis: HR>90, but no fever, tachypnea, or leukocytosis Patient received IVF and started on broad-spectrum antibiotics Will treat with vancomycin, started 03/08/2024 Right forearm x-ray showed extensive soft tissue emphysema without evidence of osteomyelitis or abscess CT of right forearm pending Infectious disease consult General surgery consult for possible debridement Follow blood cultures Question of pneumonia CXR suspicious for patchy right lower lobe pneumonia Patient without significant respiratory symptoms Will empirically treat with vancomycin and Zosyn, started 03/08/2024 No sepsis Polysubstance use disorder Continue methadone Addiction consult Full Code Attending:?Dr. Senior DVT Prophylaxis: Lovenox Pt will require a hospitalization of at least two nights for treatment of?chronic right elbow open wound with cellulitis secondary to IVDU. Patient will require administration of IV antibiotics and specialist consultation with ID and General surgery for possible debridement. Quality Stroke Does the patient have a stroke diagnosis?: No VTE Prior VTE?: No VTE Risk Level:: Medical - moderate - high VTE Device Contraindication: Treatment Not Indicated VTE Drug Contraindication: N/A - Med Ordered
--- NOTE | 2024-03-08 15:07 | PHA.MEDREC ---
Addendum entered by Radha Rollins RPh 03/08/24 15:34: Med reviewed by [facility]. Original Note: Pharmacy Consult ? Medication Reconciliation Pharmacy has completed the medication reconciliation. Spoke with patient and she confirmed she is only using the Methadone and confirmed she is using 85mg and she last took it Tuesday.
[2024-03-08] MEDS: Flu Vacc TS2024-25(6mos up)/PF 0.5 ML SYRINGE IM (22:31)
[2024-03-08] MEDS: vancomycin HCL 750 MG in 0.9 % Sodium Chloride 250 ML 265 MG IV (22:33)
[2024-03-08] MEDS: 0.9 % Sodium Chloride Flush 3 ML SYRINGE IVFLUSH (23:51)
[2024-03-09 03:01] VITALS: BP 115/61; PULSE 65; RESP 16; TEMP 36.7; O2SAT 94
[2024-03-09 07:26] VITALS: BP 115/69; PULSE 63; RESP 16; TEMP 37.2; O2SAT 92
--- NOTE | 2024-03-09 09:04 | PM.CNGS ---
History of Present Illness Consult details Consult date: 03/09/24 Narrative: Patient was a 28 year old female with a plethora of comorbidities and history of polysubstance abuse. Surgical consult was obtained for a chronic right elbow soft tissue wound which the patient has had for over 4 years. This apparently is an injection site for her for her IVDA use. Chart was reviewed and patient evaluated PMFSH Past Medical History Medical History Bacteremia Sepsis History of endocarditis Wound of right upper extremity Fever Elevated blood pressure reading Septic embolism Cocaine use disorder, severe, dependence Opioid use disorder, severe, dependence Bacteremia MELITON (acute kidney injury) Substance abuse Family History Family History Mother No problems noted. Father No problems noted. Social History Social History Household Members: Friend(s) and Other Housing: Homeless Housing Other:: homeless but states staying with friends Do you presently have visiting nurse or other home services: No Unable to assess alcohol history related to: Refusing to respond Alcohol intake: current Alcohol intake frequency: 0-2 drinks per day Alcohol type: beer Comment: Patient refused to where red Fall risk socks. Patient Tobacco Use Status: Current everyday Tobacco user Tobacco use type: Cigarette Cigarette Packs Per Day: 0.5 Cigarettes Per Day: 10.0 Smoked in Last 30 Days: Yes Patient Interested in Nicotine Replacement: No Patient Given Instructions on How to Stop Smoking: No Second Hand Smoke Exposure: No Use of substances other than those prescribed or required for medical reasons: Yes Substance Use Type: Crack/Cocaine and Heroin Substance Use Frequency: Daily Last Used Substance: Just Prior to Admission Currently Displaying Signs/Symptoms of Drug Intoxication Withdrawal: No Any prior treatment program specific to substance use: Yes Have you been hit, kicked, punched, or otherwise hurt by someone within the past year? If so, by whom?: No Do you feel safe in your current relationship?: No Is there a partner from a previous relationship who is making you feel unsafe now?: No Are you made to feel afraid or neglected: No Advance Directives: No Do you have a plan to hurt others: No Plan Recently lost weight without trying: No How much weight loss: Not applicable Eating poorly because of decreased appetite: No Nutrition screen score: 0 Nutrition Risks: No Nutritional Risk Patient : No : No Poor oral hygiene: No service: No Current occupational status: unemployed Meds Allergies Allergy/AdvReac Type Severity Reaction Status Date / Time cefazolin Allergy Rash Verified 03/07/24 23:53 Active Medications: Current Medications Acetaminophen (Acetaminophen 325 Mg Tablet) 650 mg PO Q6H PRN PRN Reason: Pain, Mild (Pain Scale 1-3), fever or headache Calcium Carbonate (Calcium Carbonate 750 Mg Tab.Chew) 750 mg PO Q4H PRN PRN Reason: Heartburn Enoxaparin Sodium (Enoxaparin Sodium 40 Mg/0.4 Ml Syringe) 40 mg SUBCUT Q24H [facility] Last Admin: 03/08/24 16:34 Dose: Not Given Vancomycin HCl 750 mg/ Sodium (Chloride) 265 mls @ 265 mls/hr IV Q12H [facility] Last Infusion: 03/08/24 23:50 Dose: Infused Magnesium Hydroxide (Milk Of Magnesia 30 Ml Oral.Susp) 30 ml PO DAILY PRN PRN Reason: Constipation Melatonin (Melatonin 3 Mg Tablet) 6 mg PO BEDTIME PRN PRN Reason: Insomnia Methadone HCl (Methadone Hcl 20 Mg/2 Ml Oral.Conc) 85 mg PO DAILY [facility] Ondansetron HCl (Ondansetron Hcl 4 Mg/2 Ml Vial) 4 mg IVPUSH Q8H PRN PRN Reason: Nausea and Vomiting Pharmacy Consult (Consult Rx Vancomycin Dosing) 1 each MISCELLANE DAILY PRN PRN Reason: Consult order Sodium Chloride (0.9 % Sodium Chloride Flush 3 Ml Syringe) 3 ml IVFLUSH QSHIFT [facility] Last Admin: 03/08/24 23:51 Dose: 3 ml Home Medications ?Medication ?Instructions ?Recorded ?Confirmed ?Last Taken ?Type methadone 10 mg/mL oral 85 mg PO DAILY 03/08/24 03/08/24 03/06/24 07:16 History concentrate (Methadone Intensol) Physical Exam Vital Signs: Vital Signs: Last Vital Signs Temp 98.9 F 03/09/24 07:26 Pulse 63 03/09/24 07:26 Resp 16 03/09/24 07:26 BP 115/69 03/09/24 07:26 Pulse Ox 92 03/09/24 07:26 O2 Del Method Room Air 03/09/24 07:26 BMI result Body Mass Index 31.4 Const: Other: Patient was very somnolent and woken from his sleep on rounds and was not very communicative. She states that her wound is as noted in the H&P that this is been present for over 4 years time and she uses it as an injection site. Extrem: Other: Patient has a very large dry crusty eschar involving the and 2-0 medial part over proximal right forearm. This measures approximately 15 by 6 cm. No evidence of any cellulitis, abscess or any infective process. Results Labs 03/08/24 07:55 03/08/24 12:04 Labs: Abnormal lab results 03/08/24 Range/Units 12:04 ESR 34 H (0-20) MM/HR Anion Gap 11 L (12-20) Total Creatine Kinase < 7 L (26-140) U/L C-Reactive Protein 0.73 H (< or = 0.50) mg/dL Albumin 3.3 L (3.5-5.0) g/dL BMP 03/08/24 12:04 Sodium 135 Potassium 4.4 Chloride 104 Carbon Dioxide 24 BUN 15 Creatinine 1.10 Calcium 9.0 D Cardiac Enzymes 03/08/24 Range/Units 12:04 Total Creatine Kinase < 7 L (26-140) U/L Liver Function 03/08/24 Range/Units 12:04 Total Bilirubin 0.7 (0.0-1.0) mg/dL Direct Bilirubin 0.3 (0.0-0.5) mg/dL AST 28 (5-31) U/L ALT 12 (0-31) U/L Alkaline Phosphatase 113 (39-117) U/L Albumin 3.3 L (3.5-5.0) g/dL All other labs normal. Assessment and Plan (1) Wound of right upper extremity: Status: Acute Plan At present, no acute surgical intervention is required. Patient was a dry uninfected eschar. It would be strongly encouraged for the patient not to use this as her IV injection site and allow this to heal. Consideration for wound care consult/wound clinic follow-up as well Procedures Date of Service Date of Service: 03/09/24
[2024-03-09] MEDS: methADONE HCl 20 MG/2 ML ORAL.CONC 85 MG PO (09:36)
[2024-03-09] MEDS: 0.9 % Sodium Chloride Flush 3 ML SYRINGE IVFLUSH (09:39)
--- NOTE | 2024-03-09 10:38 | MHC.CM.PN ---
Addendum entered by Trang Lopez 03/09/24 15:15: PT AWARE THERE WILL BE NO BED AT [facility] TODAY SHE UNDERSTANDS SHE CAN PRESENT TO THE [facility] TOMORROW MORNING BY 0800 FOR WALK IN ADMITTANCE SHE WILL DC TO [facility] TODAY AT 1530 VIA LYFT LYFT SCHEDULED AND UPDATES WILL BE SENT DIRECTLY TO THE PTS PHONE Addendum entered by Trang Lopez 03/09/24 13:44: PT HAS BEEN CLEARED TO DC TODAY SHE IS AWARE [facility] HAS A BED AND HAS ACCEPTED IT PER HOSPITAL ADMISSIONS CLERK, SHE HAS ALSO MADE A REFERRAL TO [facility] AND THEY ARE WAITING FOR A RESPONSE RE BED AVAILABILITY IF PT GOES TO THE [facility], SHE WILL DC VIA LYFT AT 1530 HOURS SHE HAS TO BE THERE BY 1615 HOURS DCP PENDING RESPONSE FROM [facility] Addendum entered by Pavan Avelar 03/09/24 10:51: DC PLAN PENDING RECOVERY TEAM SA TREATMENT VS [facility] WILL NEED RIDE Original Note: 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 P:[phone]
--- NOTE | 2024-03-09 10:48 | MHC.RECOVRN ---
Met with pt in 344 after consult placed to Addiction Medicine for IV substance use. Pt had presented to the ED for right elbow abscess for longer than one year without treatment, pt reported injecting into the area. Upon evaluation, pt admitted for cellulitis. Pt sitting in bed, awake, alert, minimal engagement with t/w, irritable. T/w familiar with pt from previous consults. Pt immediately states They're discharging me and I don't know what I am supposed to do. Am I supposed to be homeless? T/w inquired where pt had been staying prior to presentation, pt states It doesn't matter, I can't go back there. Pt reports she has been using heroin/fentanyl, 5 bags daily, IN, as well as cocaine, $20 daily, IV. Pt reports significant reduction in use after methadone initiation a couple months ago. Currently receiving 85 mg daily, pt reports this is a comfortable dose. Inquired about injection practices, pt states It doesn't matter, I'm not going to be using anymore. Attempted to discuss injection practices hypothetically if pt ever does or ever needs to educate someone else, pt interrupts and says It doesn't matter. Discussed ATS level of care as pt has only been here since yesterday, pt declines. Pt reports she is going to reach out to family to see if she can stay with someone. Pt does not engage in further discussion regarding substance use, focused on finding somewhere to go after discharge. Informed pt case management can offer assistance/information on local shelters. Pt denies questions or concerns for t/w. Pt provided with written resources including ATS, harm reduction, safer injection sites/practices, among other resources. Discussed with provider as well as Jinny Wright APRN.
--- NOTE | 2024-03-09 11:16 | PM.DS ---
DS: Providers Provider Date of Service: 03/09/24 Date of admission: 03/08/24 15:55 Date of discharge: 03/09/24 Primary care physician: Unknown Physician Consults: 03/08/24 16:00 Consult to General Surgery Routine Consulting Provider[place] [facility] Reason for consultation: Open wound right elbow 03/08/24 16:33 Addiction Medicine Routine Consulting Provider: Addiction Covering Reason for consultation: IVDU Consult to Infectious Diseases Routine Consulting Provider: [facility] Reason for consultation: Open right elbow wound w/cellulitis, IVDU 03/08/24 20:49 Consult to Wound Care Routine Reason for consultation: right elbow, non healing wound DS: Diagnosis Discharge Diagnosis (1) Wound of right upper extremity: Status: Acute (2) Pneumonia: Status: Acute (3) Polysubstance abuse: Status: Acute DS: Summary Hospital Course Hospital Course: Admission note HPI Pt is a 28-year-old female with a PMH significant for?polysubstance use disorder (IV cocaine and heroin) and infective endocarditis of tricuspid valve in 2021 who presents to the ED with worsening chronic right elbow wound. Pt is a rather poor historian and states has had a chronic right forearm wound for the past year, though review of records indicates has had wound for at least the past four years. Pt uses open wound for IVDU, currently injecting $20 of cocaine and 1/2 bundle of heorin daily. It is not entirely clear what brought patient into the hospital today, but complains of worsening chronic wound that occasionally drains purulent discharge. No arm pain. Denies fever and chills. Patient also complains of worsening occasionally productive cough for the past month. Sputum occasionally brown/reddish. Also reports some nausea and vomiting last week, but none recently. No abdominal pain. Denies chest pain/pressure, palpitations. No significant shortness a breath or difficulty breathing. In the ED pt with 1 episode of elevated H are up to 97, vitals otherwise stable and WNL. Labs were significant for ESR mildly elevated at 34 and CRP mildly elevated at 0.73, otherwise grossly unremarkable and around baseline for patient. No leukocytosis. Stable H&H. No significant electrolyte abnormalities. Renal function baseline with creatinine 1.10. Hepatic function WNL. Tested negative for flu, RSV, COVID. CXR showed patchy right lower lobe pneumonia suspected, as well as likely underlying pulmonary hypertension. Right forearm x-ray showed extensive soft tissue emphysema throughout the forearm and distal right arm, but without fracture or focal bone lesion, evidence of osteomyelitis, or definite elbow joint effusion. CT of right forearm\ pending. EKG demonstrated normal sinus rhythm without evidence of ST elevations or depressions. Pt was treated with DuoNebs, albuterol, methadone, vancomycin, and Zosyn. Pt will be admitted to the hospital for treatment and further evaluation of cellulitis of chronic right elbow wound secondary to IVDU. Hospital course Chronic open right elbow wound with no significant signs of cellulitis as she has Chronic right upper extremity wounds secondary to IVDU x4 years that she keeps injecting into it. not septic. covered with IV Vancomycin. Right forearm x-ray showed extensive soft tissue emphysema without evidence of osteomyelitis or abscess. CT scan suggetive of cellulitis. General surgery evaluated the patient and did not feel any deep infection or need to debridement at this stage. Will be discharged on oral antibiotics with plan for wound care and avoidance of injecting herself in that area. blood cultures remains negative after 24 hours. Question of pneumonia, CXR suspicious for patchy right lower lobe pneumonia with no hypoxia or other respiratory symptoms. Will discharge her on 5 more days of Doxycycline empirically. Polysubstance use disorder, To continue methadone. seen by Addiction medicine team who provided her with outpatient resources and suggested inpatient detox program but the patient denied. Discharge plan Doxycycline for 5 more days Follow with wound clinic Avoid injecting to your wound The patient made quicker than anticipated recovery and does not need 2nd overnight hospital stay. Time Attestation Discharge Coordination Time (in mins): 34 Quality: Safe Use of Opioids Does Pt have an Active Cancer Diagnosis on the Problem List?: No Quality: Stroke Does the patient have a stroke diagnosis?: No Physical Exam Vital Signs: Vital Signs: Last Vital Signs Temp 98.9 F 03/09/24 07:26 Pulse 63 03/09/24 07:26 Resp 16 03/09/24 07:26 BP 115/69 03/09/24 07:26 Pulse Ox 92 03/09/24 07:26 O2 Del Method Room Air 03/09/24 07:26 BMI result Body Mass Index 31.4 Const: Other: Constitutional : interactive, not in distress Cardiovascular : no JVP, no lower extremity edema Respiratory : bilateral chest movement, not in resp distress Gastrointestinal: soft, lax, Non tender Skin : Warm, Dry, multiple healing vergara, large dry crusty eschar involving the and 2-0 medial part over proximal right forearm of 15x6 cm. No evidence of deep infection or erythma or abscess. Neurological : Alert & oriented , No focal deficit Skin: Other: Right lateral forearm, with extensive chronic wound, with surrounding erythema, and warmth. Strong radial pulse. She is able to flex and extend at the elbow. Tender to palpation in this region. No drainage to the area. DS: Data Data Completed and Pending Completed studies during hospitalization [Text1]: Procedures Detoxification Services for Substance Abuse Treatment (11/04/22) Drainage of Left Pleural Cavity with Drainage Device, Percutaneous Approach (03/31/21) Drainage of Right Pleural Cavity with Drainage Device, Percutaneous Approach (03/31/21) Insertion of Endotracheal Airway into Trachea, Via Natural or Artificial Opening (01/20/22) Insertion of Infusion Device into Inferior Vena Cava, Percutaneous Approach (01/20/22) Insertion of Infusion Device into Right Atrium, Percutaneous Approach (03/31/21) Introduction of Other Thrombolytic into Central Vein, Percutaneous Approach (03/31/21) Introduction of Vasopressor into Central Vein, Percutaneous Approach (01/20/22) Respiratory Ventilation, 24-96 Consecutive Hours (01/20/22) Transfusion of Nonautologous Red Blood Cells into Peripheral Vein, Percutaneous Approach (03/31/21) Labs on day of discharge: Laboratory Results - last 24 hr 03/08/24 12:04 ESR 34 H Sodium 135 Potassium 4.4 Chloride 104 Carbon Dioxide 24 Anion Gap 11 L BUN 15 Creatinine 1.10 Estim Creat Clear Calc 62.2 Estimated GFR > 60 Random Glucose 103 Calcium 9.0 D Magnesium 2.0 Total Bilirubin 0.7 Direct Bilirubin 0.3 AST 28 ALT 12 Alkaline Phosphatase 113 Total Creatine Kinase < 7 L Troponin I High Sens < 2.7 C-Reactive Protein 0.73 H Total Protein 7.7 Albumin 3.3 L Lipase 15 Beta HCG, Quant < 2 Preliminary micro results at discharge 03/08/24 07:55 Blood Culture - Preliminary Blood - Venous No growth after 24 hours. Imaging Chest x-ray: Radiologist's impression: ITS Impressions Chest X-Ray 03/08/24 06:50 IMPRESSION: 1. Patchy right lower lobe pneumonia suspected. 2. Foci of scarring in the bilateral perihilar regions and inferior right upper lobe. 3. Mild cardiomegaly. 4. Apparent enlargement of the main pulmonary arteries with rapid distal tapering, findings suggesting underlying pulmonary hypertension. Electronically signed by: Simone Hernandez MD 03/08/2024 08:47 AM EST RP Forearm X-Ray 03/08/24 08:00 IMPRESSION: 1. Extensive soft tissue emphysema throughout the forearm and distal right arm, majority subjacent to a large ulcerated appearing wound on the dorsomedial forearm. Diagnosis of necrotizing fasciitis/gangrene should be considered in the appropriate clinical context. 2. No fracture or focal bone lesion. No gross evidence of osteomyelitis radiographically. 3. No definite elbow joint effusion. Electronically signed by: Simone Hernandez MD 03/08/2024 08:54 AM EST RP Forearm CT 03/08/24 14:47 IMPRESSION: 1. Skin and subcutaneous irregularity along the posterior ulnar aspect of the proximal to middle one-third portion of the forearm compatible with a large area of ulceration. 2. There is heterogeneous density in the thickened appearing subcutaneous soft tissues extending to the underlying muscle fascia. Likely cellulitis. Possible involvement of the muscles in the region of the anconeus muscle and extensor muscles. Cannot exclude irregular subcutaneous abscess deep to the area of ulceration. There is no soft tissue gas. 3. Findings are most compatible with cellulitis. Electronically signed by: Ming Rubin MD 03/08/2024 04:51 PM EST RP Discharge Plan Discharge Anticipated Discharge Date/Time: 03/09/24 11:08 Patient Disposition: Assisted Discharge Diagnosis: Right upper extremity wound Referrals: Physician,Unknown J [Primary Care Provider] - 1 Week Discharge Medications: New doxycycline monohydrate 100 mg capsule 100 mg PO BID Qty: 10 0RF Continued methadone [Methadone Intensol] 10 mg/mL Concentrate 85 mg PO DAILY Diet: Advance to usual diet Activity on Discharge: As tolerated Stand Alone Forms: Patient Portal Discharge page Print Language: Greek Care Plan Goals: Doxycycline for 5 more days Follow with wound clinic Avoid injecting to your wound Health Concerns: Arm wound Plan of Treatment: Antibiotics Avoid injecting drugs Assessment: as above
[2024-03-09] MEDS: vancomycin HCL 750 MG in 0.9 % Sodium Chloride 250 ML 265 MG IV (12:03)
--- NOTE | 2024-03-09 12:45 | MHC.RECOVRN ---
Informed by CM pt is now interested in inpatient [facility] treatment. Met with pt in 344 to follow up. Pt laying in bed, reports she is now interested in treatment because she does not have anywhere to go. Pt asked t/w about various facilities--all that pt inquired about require ATS admission or period of abstinence prior to admission. Pt agreeable to ATS, however, only [facility] due to location. T/w has reached out to [facility] to see if there is bed availability, awaiting response.
--- NOTE | 2024-03-09 15:19 | PC.NURSE ---
Patient had CRlab ordered but refused ,STEVEN Hudson notified
--- NOTE | 2024-03-09 15:52 | MHC.RECOVRN ---
Pt d/c to [facility] prior to hearing back from [facility]. T/w just received call from Jessica, cargo services coordinator at [facility], who informed t/w pt has been declined from [facility] due to medical acuity.
== END 2024-03-09 15:30 | disposition home or self-care (01) | DRG 383 ==
LOC: HO.ED 03-08 13:25 → HO.EDOVER 03-08 16:31 → HO.S3 03-08 18:31
PROVIDERS: Physician Assistant Medical; Admitting Provider Student in an Organized Health Care Education/Training Program; Emergency Provider Emergency Medicine Emergency Medical Services; Visit Provider Student in an Organized Health Care Education/Training Program
DX: L03.113 Cellulitis of right upper limb (principal); J18.9 Pneumonia, unspecified organism; F11.20 Opioid dependence, uncomplicated; F17.210 Nicotine dependence, cigarettes, uncomplicated; L98.499 Non-pressure chronic ulcer of skin of other sites with unspecified severity; Z23 Encounter for immunization; F19.90 Other psychoactive substance use, unspecified, uncomplicated; Z59.01 Sheltered homelessness; Z71.6 Tobacco abuse counseling; Z20.822 Contact with and (suspected) exposure to COVID-19
CPT/HCPCS: 0241U; 36415; 71046; 73090; 73201; 80048; 80076; 82550; 83605; 83690; 83735; 84484; 84702; 85025; 85652; 86140; 87040; 90656; 93005; 94640; 99285; J2543; J3370; J3371

== ENCOUNTER → 2024-03-08 06:51 | Outpatient (BNV) | payer MEDICAID, SELFPAY | PROVIDERS: Emergency Provider Emergency Medicine Emergency Medical Services; Visit Provider Radiology Diagnostic Radiology | DX: R06.2 Wheezing (principal); M79.601 Pain in right arm | CPT/HCPCS: 71046; 73090 ==

== ENCOUNTER → 2024-03-08 06:56 | Outpatient (BNV) | payer MEDICAID, SELFPAY | PROVIDERS: Admitting Provider Student in an Organized Health Care Education/Training Program; Emergency Provider Emergency Medicine Emergency Medical Services; Visit Provider Internal Medicine Cardiovascular Disease | DX: R06.00 Dyspnea, unspecified (principal) | CPT/HCPCS: 93010 ==

== ENCOUNTER → 2024-03-08 15:55 | Outpatient (BNV) | payer MEDICAID, SELFPAY | PROVIDERS: Admitting Provider Student in an Organized Health Care Education/Training Program; Emergency Provider Emergency Medicine Emergency Medical Services; Visit Provider Surgery | DX: S41.101A Unspecified open wound of right upper arm, initial encounter (principal) | CPT/HCPCS: 99222 ==

== ENCOUNTER → 2024-03-08 15:55 | Outpatient (BNV) | payer MEDICAID, SELFPAY | PROVIDERS: Admitting Provider Student in an Organized Health Care Education/Training Program; Emergency Provider Emergency Medicine Emergency Medical Services; Visit Provider Student in an Organized Health Care Education/Training Program | DX: S41.101A Unspecified open wound of right upper arm, initial encounter (principal); J18.9 Pneumonia, unspecified organism; F19.10 Other psychoactive substance abuse, uncomplicated; L03.113 Cellulitis of right upper limb | CPT/HCPCS: 99223; 99239 ==